=== PATIENT | male | born 1945 | race Caucasian/White ===

== ENCOUNTER → 2016-11-16 | Outpatient (CLI) | payer OTHER ==
[~2016-11-16] MED LIST: ACET-1311 PO; ATRINS INH; AUG0.05O4 TOP; BENZ1TAB2 PO; CALC500C PO; CGN5X PO; CHLO1TAB15 PO; DIPH25TA32 PO; DIVA250T PO; DIVA250T4 PO; DIVA500T5 PO; GFNSR600 PO; HYDR2.5C37 RE; LACT1TAB20 PO; LEVO1TAB33 PO; LISI-729 PO; LOPE-5 PO; LORA-741 PO; LTRCR30 EX; LVQ750 PO; MAGN400T5 PO; MAGNPOW EX; NXM/40 PO; ONDA4TAB4 PO; POTA10CA28 PO; PSYLPOW6 PO; QUET400T PO; RISP2TAB3 PO; TPRSR/25 PO; TRAZ50TA35 PO; XPNINS INH; ZFR4 PO; ZNTT/150 PO; [UNRECOGNIZED DRUG - OTHER] PO
== END | disposition home or self-care (01) ==
LOC: C.LABSPEC 16:34
PROVIDERS: ATTEND Internal Medicine
DX: J11.1 Influenza due to unidentified influenza virus with other respiratory manifestations (principal)

== ENCOUNTER → 2016-12-26 | Outpatient (CLI) | payer OTHER ==
[2016-12-26 08:50] LABS: BLOOD UREA NITROGEN 14 mg/dl (7-18); BUN/CREATININE RATIO 19.4 (10-20); CALCIUM 9.1 mg/dl (8.5-10.1); CARBON DIOXIDE 27 mmol/L (21-32); CHLORIDE 95 mmol/L (98-107); GLUCOSE 81 mg/dl (70-99); POTASSIUM 4.1 mmol/L (3.5-5.1); SODIUM 131 mmol/L (136-145)
== END | disposition home or self-care (01) ==
LOC: C.LABSPEC 07:49
PROVIDERS: ATTEND Nurse Practitioner Family
DX: I10 Essential (primary) hypertension (principal); E83.42 Hypomagnesemia

== ENCOUNTER → 2017-03-27 | Outpatient (CLI) | payer OTHER ==
[~2017-03-27] MED LIST changes: +BENZ0.5T2 PO; -CGN5X PO; -LACT1TAB20 PO; -LEVO1TAB33 PO; +[UNRECOGNIZED DRUG - CODE] PO
[2017-03-27 12:14] LABS: HEMATOCRIT 36.9 % (42-52); MEAN CELL VOLUME 89.6 fL (80-100); MEAN CORPUSCULAR HEMOGLOBIN 32.5 pg (25-34); MEAN CORPUSCULAR HGB CONC 36.3 g/dl (32-36); MEAN PLATELET VOLUME 9.2 fL (7.4-10.4); PLATELET COUNT 310 K/uL (130-400); RED BLOOD COUNT 4.12 M/uL (4.7-6.1); WHITE BLOOD COUNT 7.99 K/uL (4.8-10.8)
[2017-03-27 12:48] LABS: BLOOD UREA NITROGEN 11 mg/dl (7-18); BUN/CREATININE RATIO 16.4 (10-20); CARBON DIOXIDE 24 mmol/L (21-32); CHLORIDE 92 mmol/L (98-107); CREATININE 0.69 mg/dl (0.60-1.40); GLUCOSE 114 mg/dl (70-99); SODIUM 126 mmol/L (136-145)
[2017-03-27 12:57] LABS: CALCIUM 8.7 mg/dl (8.5-10.1)
== END ==
LOC: C.LABSPEC 14:40
PROVIDERS: ATTEND Nurse Practitioner Adult Health
DX: R05 Cough (principal)

== ENCOUNTER → 2017-07-24 | Outpatient (CLI) | payer OTHER ==
[~2017-07-24] MED LIST changes: -BENZ0.5T2 PO; +CGN5X PO; +LACT1TAB20 PO; -[UNRECOGNIZED DRUG - CODE] PO
[2017-07-24 10:52] LABS: BASO % 0.4 %; BASO ABS # 0.03 K/uL (0-0.2); COMPLETE YES; EOS % 3.4 %; HEMATOCRIT 35.5 % (42-52); IG% 0.3 %; LYMPH % 49.7 %; LYMPH ABS # 3.63 K/uL (1.2-3.4); MEAN CELL VOLUME 89.2 fL (80-100); MEAN CORPUSCULAR HEMOGLOBIN 32.2 pg (25-34); MEAN CORPUSCULAR HGB CONC 36.1 g/dl (32-36); MEAN PLATELET VOLUME 9.3 fL (7.4-10.4); MONO % 8.8 %; NEUT % 37.4 %; PLATELET COUNT 316 K/uL (130-400); RED BLOOD COUNT 3.98 M/uL (4.7-6.1)
[2017-07-24 11:22] LABS: BLOOD UREA NITROGEN 9 mg/dl (7-18); BUN/CREATININE RATIO 16.2 (10-20); CALCIUM 8.3 mg/dl (8.5-10.1); CARBON DIOXIDE 23 mmol/L (21-32); CHLORIDE 95 mmol/L (98-107); CREATININE 0.56 mg/dl (0.60-1.40); GLUCOSE 73 mg/dl (70-99); SODIUM 128 mmol/L (136-145)
== END | disposition home or self-care (01) ==
LOC: C.LABSPEC 08:18
PROVIDERS: ATTEND Nurse Practitioner Adult Health
DX: I10 Essential (primary) hypertension (principal)

== ENCOUNTER 2017-08-04 10:32 | Inpatient (IN) | payer OTHER ==
[~2017-08-04] VITALS: Ht 167.6 cm; Wt 49.9 kg
[~2017-08-04 10:32] MED LIST changes: -ATRINS INH; -CGN5X PO; -CHLO1TAB15 PO; -DIPH25TA32 PO; -DIVA250T PO; -DIVA500T5 PO; -LVQ750 PO; -XPNINS INH; -ZFR4 PO
[2017-08-04] MEDS ORDERED: SODIUM CHLORIDE 0.9% 1000ML 1,000 ML IV ONE ×2 (11:00→12:00)
--- NOTE | 2017-08-04 11:07 | EMERGENCY ROOM VISIT NOTE ---
History Report prepared by Shiva: Kevin Gabriel Under the Supervision of: Dr. oGrge Mcdermott M.D. First contact with patient: 10:52 Chief Complaint: DIZZY Stated Complaint: DIZZINESS History of Present Illness The patient is a 71 year old male who presents to the Emergency Room with complaints of dizziness that began recently. He states that he has been feeling "off" as of late with a shuffling gait. He states that he is not dizzy currently. Per the staff at [facility], his speech has been "heavier" as well. He is currently hypotensive with a blood pressure of 90/61. He states that this has happened to him in the past and he is medicated for his blood pressure. He denies any pain or shortness of breath as well. He states that he has a strange movement with his tongue that started a couple of weeks ago. Source of History: patient Onset: recently Position: other (global) Symptom Intensity: minimal Quality: other (Dizziness) Timing: resolved Associated Symptoms: No headache, No sorethroat, No neck pain, No chest pain , No SOB, No abdominal pain, No back pain Review of Systems All systems have been listed, reviewed, and are negative other than those previously mentioned. Please see Additional Medical History Sheet. Past Medical & Surgical Medical Problems: (1) Kevin esophagus (2) GERD (gastroesophageal reflux disease) (3) HTN (hypertension) (4) Paranoid schizophrenia (5) Partial small bowel obstruction (6) Sepsis (7) Tobacco abuse Surgical Problems: (1) History of bowel resection Family History FHx: heart disease Stroke Social History Smoking Status: Current Every Day Smoker Alcohol Use: none Drug Use: none Marital Status: single Housing Status: custodial Occupation Status: retired Current/Historical Medications Scheduled Benztropine Mesylate (Benztropine Mesylate), 0.5 MG PO BID Betamethasone Dip Aug 0.05% (Diprolene 0.05%), Unknown Dose TOP DAILY Calcium Carbonate (Antacid) (Calcium Antacid), 1-2 TABS PO DAILY Calcium Carbonate (Antacid) (Calcium Antacid), 1-2 TABS PO BID Chlorpromazine Hcl (Thorazine), 50 MG PO HS Clotrimazole (Lotrimin 1%), 1 EX DAILY Divalproex Sodium (Depakote Delay Rel), 250 MG PO BID Esomeprazole Magnesium (Nexium), 40 MG PO BID Lactase (Dairy Relief), 9,000 UNITS PO QID Lisinopril (Zestril), 5 MG PO BID Magnesium Sulfate (Laxative) (Epsom Salt), Unknown Dose EX 2XWK Metoprolol Succinate (Metoprolol Succinate ER), 12.5 MG PO DAILY Potassium Chloride (Micro-K Ext Rel), 10 MEQ PO BID Psyllium (Reguloid), Unknown Dose PO HS Quetiapine Fumarate Xr (Seroquel Xr Tab), 400 MG PO DAILY Ranitidine (Zantac), 150 MG PO BID Risperidone (Risperdal), 2 MG PO BID Trazodone Hcl (Trazodone), 50 MG PO DAILY [supplement drink ], 1 BTL PO DAILY Scheduled PRN Acetaminophen (Tylenol), 1,000 MG PO Q8 PRN for Pain Diphenhydramine Hcl (Diphenhydramine Hcl), 25 MG PO Q8 PRN for ALLERGIC REACTION Guaifenesin Ext Rel (Mucinex Ext Rel), 600 MG PO BID PRN for CONGESTION Loperamide Hcl (Imodium A-D), 2-4 MG PO UD PRN Ondansetron (Ondansetron HCl), 4 MG PO Q4 PRN for Nausea Allergies Coded Allergies: Buspirone (Verified Allergy, Unknown, 08/04/17) Clonazepam (Verified Allergy, Unknown, unknown, 08/04/17) [facility] Clozapine (Verified Allergy, Unknown, 08/04/17) Physical Exam Vital Signs Date Time Temp Pulse Resp B/P (MAP) Pulse Ox O2 Delivery O2 Flow Rate FiO2 08/04/17 12:50 92 Room Air 08/04/17 12:29 110 22 117/86 92 Room Air 08/04/17 11:20 104 20 115/78 94 Room Air 08/04/17 11:05 104 20 72/63 94 Room Air 08/04/17 10:51 36.7 114 16 108/67 94 Room Air 08/04/17 10:47 111 08/04/17 10:45 114 16 108/67 94 Room Air 110 121/68 125 90/61 08/04/17 10:35 94 Room Air Physical Exam GENERAL: Patient awake, alert, oriented x 3. Patient follows commands. Patient does not appear toxic. Patient is adequately hydrated and well- nourished. SKIN: Dry and flakey. No erythema, pallor, cyanosis or rash HEENT: Normal head, pupils equal, reactive to light and accommodation. Ears normal. Oral cavity and posterior pharynx appear normal. Edentulous. Tardive dyskinesia. Neck: Without adenopathy, no neck vein distention. LUNGS: Clear to auscultation. No wheezes, no rales, no rhonchi. HEART: No murmurs. No gallops. No rubs ABDOMEN: No masses, no rebound, no hepatomegaly or splenomegaly. EXTREMITIES: No signs of trauma. No pedal or pretibial edema. No calf or thigh tenderness. NEUROLOGIC: Cranial nerves II-XII within normal limits. No gross motor sensory function deficits. Medical Decision & Procedures ER Provider Diagnostic Interpretation: Radiology results as stated below per my review and radiologist interpretation: CHEST ONE VIEW PORTABLE CLINICAL HISTORY: dizzy mental status change COMPARISON STUDY: 06/26/2016 FINDINGS: Poorly defined parenchymal infiltrate left mid to lower lung. Right lung is clear. No significant cardiac enlargement. IMPRESSION: Diffuse left mid to lower lung infiltrate. The above report was generated using voice recognition software. It may contain grammatical, syntax or spelling errors. Electronically signed by: Ron Friend M.D. 08/04/2017 11:31 AM Dictated Date/Time: 08/04/2017 11:30 AM Laboratory Results 08/04/17 11:10 Red Blood Count 4.17, Mean Corpuscular Volume 88.0, Mean Corpuscular Hemoglobin 33.1, Mean Corpuscular Hemoglobin Concent 37.6, Mean Platelet Volume 8.8, Neutrophils (%) (Auto) 90.2, Lymphocytes (%) (Auto) 5.2, Monocytes (%) (Auto) 4.0, Eosinophils (%) (Auto) 0.1, Basophils (%) (Auto) 0.1, Neutrophils # (Auto) 16.98, Lymphocytes # (Auto) 0.97, Monocytes # (Auto) 0.76, Eosinophils # (Auto) 0.01, Basophils # (Auto) 0.01 08/04/17 11:10 Test 08/04/17 11:05 08/04/17 11:10 08/04/17 12:25 Urine Color YELLOW Urine Appearance CLEAR (CLEAR) Urine pH 7.5 (4.5-7.5) Urine Specific [place] 1.008 (1.000-1.030) Urine Protein NEG (NEG) Urine Glucose (UA) NEG (NEG) Urine Ketones NEG (NEG) Urine Occult Blood NEG (NEG) Urine Nitrite NEG (NEG) Urine Bilirubin NEG (NEG) Urine Urobilinogen NEG (NEG) Urine Leukocyte Esterase NEG (NEG) White Blood Count 18.80 K/uL (4.8-10.8) Red Blood Count 4.17 M/uL (4.7-6.1) Hemoglobin 13.8 g/dL (14.0-18.0) Hematocrit 36.7 % (42-52) Mean Corpuscular Volume 88.0 fL (80-100) Mean Corpuscular Hemoglobin 33.1 pg (25-34) Mean Corpuscular Hemoglobin Concent 37.6 g/dl (32-36) Platelet Count 312 K/uL (130-400) Mean Platelet Volume 8.8 fL (7.4-10.4) Neutrophils (%) (Auto) 90.2 % Lymphocytes (%) (Auto) 5.2 % Monocytes (%) (Auto) 4.0 % Eosinophils (%) (Auto) 0.1 % Basophils (%) (Auto) 0.1 % Neutrophils # (Auto) 16.98 K/uL (1.4-6.5) Lymphocytes # (Auto) 0.97 K/uL (1.2-3.4) Monocytes # (Auto) 0.76 K/uL (0.11-0.59) Eosinophils # (Auto) 0.01 K/uL (0-0.5) Basophils # (Auto) 0.01 K/uL (0-0.2) RDW Standard Deviation 44.4 fL (36.4-46.3) RDW Coefficient of Variation 13.7 % (11.5-14.5) Immature Granulocyte % (Auto) 0.4 % Immature Granulocyte # (Auto) 0.07 K/uL (0.00-0.02) Prothrombin Time 12.0 SECONDS (9.0-12.0) Prothromb Time International Ratio 1.1 (0.9-1.1) Activated Partial Thromboplast Time 28.0 SECONDS (21.0-31.0) Partial Thromboplastin Ratio 1.1 Anion Gap 12.0 mmol/L (3-11) Est Creatinine Clear Calc Drug Dose 76.4 ml/min Estimated GFR () 112.9 Estimated GFR (Non- 97.4 BUN/Creatinine Ratio 13.4 (10-20) Calcium Level 8.8 mg/dl (8.5-10.1) Total Bilirubin 0.5 mg/dl (0.2-1) Aspartate Amino Transf (AST/SGOT) 12 U/L (15-37) Alanine Aminotransferase (ALT/SGPT) 13 U/L (12-78) Alkaline Phosphatase 114 U/L (45-117) Troponin I < 0.015 ng/ml (0-0.045) Total Protein 7.0 gm/dl (6.4-8.2) Albumin 3.4 gm/dl (3.4-5.0) Globulin 3.6 gm/dl (2.5-4.0) Albumin/Globulin Ratio 0.9 (0.9-2) Thyroid Stimulating Hormone (TSH) 0.724 uIu/ml (0.300-4.500) Lactic Acid Level 2.4 mmol/L (0.4-2.0) Laboratory results as stated above per my review. Medications Administered Medications (Trade) Dose Ordered Sig/Lupillo Route Start Time Stop Time Status Last Admin Dose Admin Sodium Chloride 1,000 ml @ 1,000 mls/hr Q1H ONCE IV 08/04/17 11:00 08/04/17 11:59 DC 08/04/17 11:23 1,000 MLS/HR Sodium Chloride 1,000 ml @ 1,000 mls/hr Q1H ONCE IV 08/04/17 12:00 08/04/17 12:59 DC 08/04/17 12:56 1,000 MLS/HR Ceftriaxone Sodium (Rocephin Inj) 1 gm NOW STAT IV 08/04/17 11:48 08/04/17 11:52 DC 08/04/17 12:56 1 GM Azithromycin (Zithromax IV) 500 mg NOW STAT IV 08/04/17 11:48 08/04/17 11:52 DC 08/04/17 13:30 500 MG ECG Indication: other (Dizziness) Rate (beats per minute): 104 Rhythm: sinus tachycardia Findings: nonspecific-ST abn, no ectopy ED Course 1052: Past medical records reviewed. The patient was evaluated in room A2. A complete history and physical examination was performed. 1100: Ordered Sodium Chloride 1000 ml @ 1000 mls/hr IV 1148: Ordered Azithromycin 500 mg IV, Rocephin Inj 1 gm IV 1200: Ordered Sodium Chloride 1000 ml @ 1000 mls/hr IV 1206: Upon reevaluation, the patient is resting. I discussed today's findings with him. He verbalized agreement of the treatment plan. I spoke with Dr. [facility] the [facility] to evaluate the patient for further management. Medical Decision I considered multiple differential diagnoses including orthostatic hypotension, medication overdose, metabolic disorder, and anemia. 71-year-old male resident of a local nursing facility here with low blood pressure. The patient does not have other significant complaints. Multiple labs, EKG and imaging were obtained. The patient has an infiltrate on the left side. His white count is elevated. Troponin is elevated. Lactic acid is elevated. The patient was given IV fluids. Blood cultures were obtained prior to administration of Zithromax and Rocephin. The patient will require further evaluation in the hospital. The patient is on multiple medications including psychiatric medications. The case was discussed with the patient and with the hospitalist. Medication Reconcilliation Current Medication List: was personally reviewed by me Blood Pressure Screening Patient's blood pressure: Low blood pressure The patient's blood pressure will be addressed during his inpatient stay. Consults Time Called: 1202 Consulting Physician: Dr. Aguilar - [facility] Returned Call: [phone] Discussed the patient's case with him. The patient will be evaluated for further management. Impression Primary Impression: Pneumonia Additional Impression: Hypotension Scribe Attestation The scribe's documentation has been prepared under my direction and personally reviewed by me in its entirety. I confirm that the note above accurately reflects all work, treatment, procedures, and medical decision making performed by me. Departure Information Dispostion Being Evaluated By Hospitalist [facility] (PCP[facility] Patient Instructions My [facility] Problem Qualifiers
[2017-08-04] MEDS ORDERED: ZFR4 PO (11:10)
[2017-08-04] MEDS ORDERED: CHLO1TAB15 PO (11:11)
[2017-08-04] MEDS ORDERED: DIPH25TA32 PO (11:11)
[2017-08-04] MEDS ORDERED: CGN5X PO (11:11)
[2017-08-04 11:30] LABS: BASO % 0.1 %; BASO ABS # 0.01 K/uL (0-0.2); COMPLETE YES; EOS % 0.1 %; HEMATOCRIT 36.7 % (42-52); IG% 0.4 %; LYMPH % 5.2 %; LYMPH ABS # 0.97 K/uL (1.2-3.4); MEAN CORPUSCULAR HEMOGLOBIN 33.1 pg (25-34); MEAN CORPUSCULAR HGB CONC 37.6 g/dl (32-36); MEAN PLATELET VOLUME 8.8 fL (7.4-10.4); NEUT % 90.2 %; PLATELET COUNT 312 K/uL (130-400); RED BLOOD COUNT 4.17 M/uL (4.7-6.1)
--- NOTE | 2017-08-04 11:32 | DIAGNOSTIC IMAGING REPORT ---
CHEST ONE VIEW PORTABLE CLINICAL HISTORY: dizzy mental status change COMPARISON STUDY: 06/26/2016 FINDINGS: Poorly defined parenchymal infiltrate left mid to lower lung. Right lung is clear. No significant cardiac enlargement. IMPRESSION: Diffuse left mid to lower lung infiltrate. The above report was generated using voice recognition software. It may contain grammatical, syntax or spelling errors. Electronically signed by: Ron Friend M.D. 08/04/2017 11:31 AM Dictated Date/Time: 08/04/2017 11:30 AM
[2017-08-04 11:35] LABS: URINE APPEARANCE CLEAR (CLEAR); URINE BILIRUBIN NEG (NEG); URINE COLOR YELLOW; URINE NITRITE NEG (NEG); URINE PH 7.5 (4.5-7.5); URINE SPECIFIC GRAVITY 1.008 (1.000-1.030); UROBILINOGEN NEG (NEG); ZZUR CULT IF INDIC CLEAN CATCH NO
[2017-08-04 11:36] LABS: MANUAL MICROSCOPIC REQUIRED? NO; REVIEW REQ? NO
[2017-08-04 11:42] LABS: INR 1.1 (0.9-1.1); PARTIAL THROMBOPLASTIN RATIO 1.1
[2017-08-04] MEDS ORDERED: CEFTRIAXONE SOD INJ 1 GM ADDVIAL IV STA (11:48)
[2017-08-04] MEDS ORDERED: AZITHROMYCIN 500MG/255ML D5W IV STA (11:48)
[2017-08-04 11:55] LABS: ALT/SGPT 13 U/L (12-78); BLOOD UREA NITROGEN 9 mg/dl (7-18); BUN/CREATININE RATIO 13.4 (10-20); CALCIUM 8.8 mg/dl (8.5-10.1); CARBON DIOXIDE 23 mmol/L (21-32); CHLORIDE 93 mmol/L (98-107); CREATININE 0.68 mg/dl (0.60-1.40); GLUCOSE 90 mg/dl (70-99); SODIUM 128 mmol/L (136-145)
[2017-08-04 12:05] LABS: ALB/GLOB RATIO 0.9 (0.9-2); ALKALINE PHOSPHATASE 114 U/L (45-117); AST/SGOT 12 U/L (15-37); THYROID STIMULATING HORMONE 0.724 uIu/ml (0.300-4.500)
[2017-08-04 12:50] VITALS: O2SAT 92; Ht 167.6 cm; Wt 49.9 kg
[2017-08-04] MEDS ORDERED: ACETAMINOPHEN 325 MG TAB PO PRN (13:30)
[2017-08-04] MEDS ORDERED: POLYETHYLENE (MIRALAX) 17 GM PACK PO PRN (13:30)
[2017-08-04] MEDS ORDERED: ONDANSETRON INJ 2 MG/ML 2 ML VIAL IV PRN (13:30)
--- NOTE | 2017-08-04 13:51 | History and Physical ---
History & Physical Date & Time of Service: Aug 04, 2017 at 13:43 Chief Complaint: Dizziness Primary Care Physician: Laureano Gomez,Personal Care,[facility] History of Present Illness Source: patient, clinic records, hospital records 71 yo M who was recently admitted to [facility] in Jun for sepsis 2/2 pneumonia presents with "feeling off" and unsteady on his feet when walking around [facility] this morning. He states that he is a smoker with a chronic cough, but he has felt worse in the past 2 days with some sputum production different than his usual. He denies any shortness of breath, chest pain, headache, abdominal pain, diarrhea, blood per rectum, sore throat, fevers or chills. He does admit to vomiting 1-2 times daily for the past two days. Although he doesn't admit to abdominal pain he did have some discomfort when I palpated his abdomen on exam, but states that he hasn't had a BM in three days and currently has to urinate. He has resided at [facility] for the past 7 years. He states that he has no other family members and that someone at is his mPOA. He does state that he feels better since his last admission, and feels the prior pneumonia was completely resolved. In the ER, he was hypotensive with BP responsive to IVF administration. CXR revealed an infiltrate on the left side. With this, symptoms and an elevated WBC count he was given Azithromax and Rocephin and admitted to the hospital for further workup and treatment. Past Medical/Surgical History Medical Problems: (1) Kevin esophagus Status: Chronic (2) GERD (gastroesophageal reflux disease) Status: Chronic (3) HTN (hypertension) Status: Chronic (4) Paranoid schizophrenia Status: Chronic (5) Tobacco abuse Status: Chronic Surgical Problems: (1) History of bowel resection Permanent Comment: for diverticulitis Status: Chronic Family History FHx: heart disease Stroke Social History Smoking Status: Current Every Day Smoker Smokeless Tobacco Use: No Alcohol Use: none Drug Use: none Marital Status: single Housing status: assisted living Occupational Status: retired Multi-Drug Resistant Organisms History of MDRO: No Allergies Coded Allergies: Buspirone (Verified Allergy, Unknown, 08/04/17) Clonazepam (Verified Allergy, Unknown, unknown, 08/04/17) [facility] Clozapine (Verified Allergy, Unknown, 08/04/17) Home Medications Scheduled Benztropine Mesylate (Benztropine Mesylate), 0.5 MG PO BID Betamethasone Dip Aug 0.05% (Diprolene 0.05%), Unknown Dose TOP DAILY Calcium Carbonate (Antacid) (Calcium Antacid), 1-2 TABS PO DAILY Calcium Carbonate (Antacid) (Calcium Antacid), 1-2 TABS PO BID Chlorpromazine Hcl (Thorazine), 50 MG PO HS Clotrimazole (Lotrimin 1%), 1 EX DAILY Divalproex Sodium (Depakote Delay Rel), 1 TAB PO BID Divalproex Sodium (Depakote Er), 1 TAB PO BID Esomeprazole Magnesium (Nexium), 40 MG PO BID Lactase (Dairy Relief), 9,000 UNITS PO QID Lisinopril (Zestril), 5 MG PO BID Magnesium Sulfate (Laxative) (Epsom Salt), Unknown Dose EX 2XWK Metoprolol Succinate (Metoprolol Succinate ER), 12.5 MG PO DAILY Potassium Chloride (Micro-K Ext Rel), 10 MEQ PO BID Psyllium (Reguloid), Unknown Dose PO HS Quetiapine Fumarate Xr (Seroquel Xr Tab), 400 MG PO DAILY Ranitidine (Zantac), 150 MG PO BID Risperidone (Risperdal), 2 MG PO BID Trazodone Hcl (Trazodone), 50 MG PO DAILY [supplement drink ], 1 BTL PO DAILY Scheduled PRN Acetaminophen (Tylenol), 1,000 MG PO Q8 PRN for Pain Diphenhydramine Hcl (Diphenhydramine Hcl), 25 MG PO Q8 PRN for ALLERGIC REACTION Guaifenesin Ext Rel (Mucinex Ext Rel), 600 MG PO BID PRN for CONGESTION Loperamide Hcl (Imodium A-D), 2-4 MG PO UD PRN Ondansetron (Ondansetron HCl), 4 MG PO Q4 PRN for Nausea Review of Systems At least ten systems were reviewed and negative except as indicated in HPI. Physical Exam Vital Signs Date Time Temp Pulse Resp B/P (MAP) Pulse Ox O2 Delivery O2 Flow Rate FiO2 08/04/17 13:37 111 08/04/17 12:50 92 Room Air 08/04/17 12:29 110 22 117/86 92 Room Air 08/04/17 11:20 104 20 115/78 94 Room Air 08/04/17 11:05 104 20 72/63 94 Room Air 08/04/17 10:51 36.7 114 16 108/67 94 Room Air 08/04/17 10:47 111 08/04/17 10:45 114 16 108/67 94 Room Air 110 121/68 125 90/61 08/04/17 10:35 94 Room Air General Appearance: WD/WN, no apparent distress, + pertinent finding (not requiring oxygen, not working to breathe, no conversational dyspnea. ) Head: normocephalic, atraumatic Eyes: normal inspection, PERRL, sclerae normal ENT: normal ENT inspection, hearing grossly normal, + pertinent finding ( postnasal drip noted, sticks tongue out and moves side to side often) Neck: supple, no adenopathy, no JVD, trachea midline Respiratory/Chest: lungs clear, normal breath sounds, no respiratory distress, no accessory muscle use Cardiovascular: regular rate, rhythm, no edema, no gallop, no murmur, normal peripheral pulses Abdomen/GI: normal bowel sounds, soft, + tenderness (generalized discomfort.) Back: normal inspection Extremities/Musculoskelatal: normal inspection, no pedal edema, normal range of motion Neurologic/Psych: machinist II-XII nml as tested, no motor/sensory deficits, alert, oriented x 3 Skin: normal color, warm/dry, no rash Lymphatic: + cervical node abnormality Diagnostics Laboratory Results 08/04/17 11:10 Red Blood Count 4.17, Mean Corpuscular Volume 88.0, Mean Corpuscular Hemoglobin 33.1, Mean Corpuscular Hemoglobin Concent 37.6, Mean Platelet Volume 8.8, Neutrophils (%) (Auto) 90.2, Lymphocytes (%) (Auto) 5.2, Monocytes (%) (Auto) 4.0, Eosinophils (%) (Auto) 0.1, Basophils (%) (Auto) 0.1, Neutrophils # (Auto) 16.98, Lymphocytes # (Auto) 0.97, Monocytes # (Auto) 0.76, Eosinophils # (Auto) 0.01, Basophils # (Auto) 0.01 08/04/17 17:35 Test 08/04/17 11:05 08/04/17 11:10 08/04/17 17:35 Urine Color YELLOW Urine Appearance CLEAR (CLEAR) Urine pH 7.5 (4.5-7.5) Urine Specific Wann 1.008 (1.000-1.030) Urine Protein NEG (NEG) Urine Glucose (UA) NEG (NEG) Urine Ketones NEG (NEG) Urine Occult Blood NEG (NEG) Urine Nitrite NEG (NEG) Urine Bilirubin NEG (NEG) Urine Urobilinogen NEG (NEG) Urine Leukocyte Esterase NEG (NEG) White Blood Count 18.80 K/uL (4.8-10.8) Red Blood Count 4.17 M/uL (4.7-6.1) Hemoglobin 13.8 g/dL (14.0-18.0) Hematocrit 36.7 % (42-52) Mean Corpuscular Volume 88.0 fL (80-100) Mean Corpuscular Hemoglobin 33.1 pg (25-34) Mean Corpuscular Hemoglobin Concent 37.6 g/dl (32-36) Platelet Count 312 K/uL (130-400) Mean Platelet Volume 8.8 fL (7.4-10.4) Neutrophils (%) (Auto) 90.2 % Lymphocytes (%) (Auto) 5.2 % Monocytes (%) (Auto) 4.0 % Eosinophils (%) (Auto) 0.1 % Basophils (%) (Auto) 0.1 % Neutrophils # (Auto) 16.98 K/uL (1.4-6.5) Lymphocytes # (Auto) 0.97 K/uL (1.2-3.4) Monocytes # (Auto) 0.76 K/uL (0.11-0.59) Eosinophils # (Auto) 0.01 K/uL (0-0.5) Basophils # (Auto) 0.01 K/uL (0-0.2) RDW Standard Deviation 44.4 fL (36.4-46.3) RDW Coefficient of Variation 13.7 % (11.5-14.5) Immature Granulocyte % (Auto) 0.4 % Immature Granulocyte # (Auto) 0.07 K/uL (0.00-0.02) Prothrombin Time 12.0 SECONDS (9.0-12.0) Prothromb Time International Ratio 1.1 (0.9-1.1) Activated Partial Thromboplast Time 28.0 SECONDS (21.0-31.0) Partial Thromboplastin Ratio 1.1 Total Bilirubin 0.5 mg/dl (0.2-1) Aspartate Amino Transf (AST/SGOT) 12 U/L (15-37) Alanine Aminotransferase (ALT/SGPT) 13 U/L (12-78) Alkaline Phosphatase 114 U/L (45-117) Troponin I < 0.015 ng/ml (0-0.045) Total Protein 7.0 gm/dl (6.4-8.2) Albumin 3.4 gm/dl (3.4-5.0) Globulin 3.6 gm/dl (2.5-4.0) Albumin/Globulin Ratio 0.9 (0.9-2) Thyroid Stimulating Hormone (TSH) 0.724 uIu/ml (0.300-4.500) Anion Gap 9.0 mmol/L (3-11) Est Creatinine Clear Calc Drug Dose 75.3 ml/min Estimated GFR () 112.3 Estimated GFR (Non- 96.9 BUN/Creatinine Ratio 11.0 (10-20) Osmolality 268 mOsm/kg (280-300) Lactic Acid Level 1.5 mmol/L (0.4-2.0) Calcium Level 8.3 mg/dl (8.5-10.1) Date/Time Source Procedure Growth Status 08/04/17 12:28 Blood Blood Culture Pending Received Results Past 24 Hours Test 08/04/17 11:05 08/04/17 11:10 08/04/17 12:25 Range/Units Urine Color YELLOW Urine Appearance CLEAR CLEAR Urine pH 7.5 4.5-7.5 Urine Specific Wann 1.008 1.000-1.030 Urine Protein NEG NEG Urine Glucose (UA) NEG NEG Urine Ketones NEG NEG Urine Occult Blood NEG NEG Urine Nitrite NEG NEG Urine Bilirubin NEG NEG Urine Urobilinogen NEG NEG Urine Leukocyte Esterase NEG NEG White Blood Count 18.80 4.8-10.8 K/uL Red Blood Count 4.17 4.7-6.1 M/uL Hemoglobin 13.8 14.0-18.0 g/dL Hematocrit 36.7 42-52 % Mean Corpuscular Volume 88.0 80-100 fL Mean Corpuscular Hemoglobin 33.1 25-34 pg Mean Corpuscular Hemoglobin Concent 37.6 32-36 g/dl Platelet Count 312 130-400 K/uL Mean Platelet Volume 8.8 7.4-10.4 fL Neutrophils (%) (Auto) 90.2 % Lymphocytes (%) (Auto) 5.2 % Monocytes (%) (Auto) 4.0 % Eosinophils (%) (Auto) 0.1 % Basophils (%) (Auto) 0.1 % Neutrophils # (Auto) 16.98 1.4-6.5 K/uL Lymphocytes # (Auto) 0.97 1.2-3.4 K/uL Monocytes # (Auto) 0.76 0.11-0.59 K/uL Eosinophils # (Auto) 0.01 0-0.5 K/uL Basophils # (Auto) 0.01 0-0.2 K/uL RDW Standard Deviation 44.4 36.4-46.3 fL RDW Coefficient of Variation 13.7 11.5-14.5 % Immature Granulocyte % (Auto) 0.4 % Immature Granulocyte # (Auto) 0.07 0.00-0.02 K/uL Prothrombin Time 12.0 9.0-12.0 SECONDS Prothromb Time International Ratio 1.1 0.9-1.1 Activated Partial Thromboplast Time 28.0 21.0-31.0 SECONDS Partial Thromboplastin Ratio 1.1 Sodium Level 128 136-145 mmol/L Potassium Level 4.0 3.5-5.1 mmol/L Chloride Level 93 98-107 mmol/L Carbon Dioxide Level 23 21-32 mmol/L Anion Gap 12.0 3-11 mmol/L Blood Urea Nitrogen 9 7-18 mg/dl Creatinine 0.68 0.60-1.40 mg/dl Est Creatinine Clear Calc Drug Dose 76.4 ml/min Estimated GFR () 112.9 Estimated GFR (Non- 97.4 BUN/Creatinine Ratio 13.4 10-20 Random Glucose 90 70-99 mg/dl Calcium Level 8.8 8.5-10.1 mg/dl Total Bilirubin 0.5 0.2-1 mg/dl Aspartate Amino Transf (AST/SGOT) 12 15-37 U/L Alanine Aminotransferase (ALT/SGPT) 13 12-78 U/L Alkaline Phosphatase 114 45-117 U/L Troponin I < 0.015 0-0.045 ng/ml Total Protein 7.0 6.4-8.2 gm/dl Albumin 3.4 3.4-5.0 gm/dl Globulin 3.6 2.5-4.0 gm/dl Albumin/Globulin Ratio 0.9 0.9-2 Thyroid Stimulating Hormone (TSH) 0.724 0.300-4.500 uIu/ml Lactic Acid Level 2.4 0.4-2.0 mmol/L Microbiology Results 08/04/17 Blood Culture, Received Pending 08/04/17 Blood Culture, Received Pending Diagnostic Radiology CHEST ONE VIEW PORTABLE CLINICAL HISTORY: dizzy mental status change COMPARISON STUDY: 06/26/2016 FINDINGS: Poorly defined parenchymal infiltrate left mid to lower lung. Right lung is clear. No significant cardiac enlargement. IMPRESSION: Diffuse left mid to lower lung infiltrate. EKG ST 104 Impression Assessment and Plan 71 yo M recently discharged from the hospital for pneumonia presents with sepsis 2/2 HCAP after initial pneumonia reported to have resolved. 1. Sepsis 2/2 HCAP-resuscitated in ER. Lactate elevated and resolved on repeat after IVF. He was initially started on Rocephin and Azithro but with this being the second episode in 1 month and from a senior living and being a smoker, I felt it prudent to cover for for pseudomonas and switched him to Zosyn. Cont resuscitation efforts overnight. 2. Hypovolemic hypotonic hyponatremia-IVF, repeat Na improved from 128 to 134. IVF were stopped. 3. Paranoid schizophrenia-lucid mental status. Cont home medications. 4. HTN- controlled, cont home meds 5. Tobacco use (smoker)-tobacco cessation counseling ordered while he is an inpatient 6. Kevin's esoph-cont BID PPI per outpatient regimen DVT proph: Lovenox 30mg Full Code Dispo- to telemetry, PT/OT and Case Management requested to be involved. Leta Head [facility] Existing Living Will: Yes Existing Power of Food Service Counter Clerk: Yes ([facility] ) VTE Prophylaxis VTE Risk Assessment Done? Y/N: Yes Risk Level: Moderate Given or contraindicated: Enoxaparin (Lovenox)SQ
[2017-08-04 14:15] VITALS: BP 148/82; PULSE 100; TEMP 37; O2SAT 88
[2017-08-04 14:30] VITALS: O2SAT 94
[2017-08-04] MEDS ORDERED: SODIUM CHLORIDE 0.9% 1000ML 1,000 ML IV SCH (14:30)
[2017-08-04] MEDS ORDERED: CONSULT PHARMACY SCH (14:34)
[2017-08-04] MEDS ORDERED: PIPERACILL/TAZOBAC IV 4.5 GM in DEXTROSE 5% 100ML IV ONE (14:45)
[2017-08-04] MEDS ORDERED: PIPERACILL/TAZOBAC CONSULT ACTIVE PRN (15:00)
[2017-08-04] MEDS ORDERED: LEVOFLOXACIN CONSULT ACTIVE PRN (15:00)
[2017-08-04] MEDS ORDERED: LIDOCAINE HCL 2% JELLY 30 ML TUBE EXT ONE (15:39)
[2017-08-04] MEDS: LEVOFLOXACIN 750MG / D5W IV SCH (16:18)
[2017-08-04] MEDS: ENOXAPARIN 30 MG/0.3 ML SYR SC SCH (16:19)
[2017-08-04 18:15] LABS: CALCIUM 8.3 mg/dl (8.5-10.1); CREATININE 0.69 mg/dl (0.60-1.40); POTASSIUM 3.8 mmol/L (3.5-5.1)
[2017-08-04] MEDS: PIPERACILL/TAZOBAC IV 3.375 GM in DEXTROSE 5% 100ML IV SCH (19:49)
[2017-08-04 20:00] VITALS: BP_SYST 118; BP_SYST 122; BP_DIAS 74; BP_DIAS 77; BP_DIAS 82; PULSE 103; PULSE 104; PULSE 93; O2SAT 94
[2017-08-04] MEDS ORDERED: DIVA500T5 PO (20:38)
[2017-08-04] MEDS ORDERED: DIVA250T PO (20:43)
[2017-08-04] MEDS: QUETIAPINE FUMARATE 200 MG TABCR PO SCH (22:41)
[2017-08-04] MEDS: RANITIDINE HCL 150 MG TAB PO SCH (22:42)
[2017-08-04] MEDS: RISPERIDONE 2 MG TAB PO SCH (22:42)
[2017-08-04] MEDS: PANTOprazole SOD 40 MG TAB PO SCH (22:42)
[2017-08-04] MEDS: TRAZODONE HCL 50 MG TAB PO SCH (22:42)
[2017-08-04] MEDS: BENZTROPINE MESYLATE 0.5 MG TAB PO SCH (22:43)
[2017-08-04] MEDS: CHLORPROMAZINE HCL 25 MG TAB PO SCH (22:44)
[2017-08-04] MEDS: POTASSIUM CHLORIDE 10 MEQ TABCR PO SCH (22:44)
[2017-08-04] MEDS: DIVALPROEX 250 MG EXTENDED REL TAB PO SCH (22:45)
[2017-08-05] VITALS (11 sets, daily range): BP systolic 87–123; BP diastolic 52–75; PULSE 75–114; TEMP 36.2–37.2; O2SAT 94–99
[2017-08-05] MEDS: PIPERACILL/TAZOBAC IV 3.375 GM in DEXTROSE 5% 100ML IV SCH ×3 (04:08→19:20)
[2017-08-05 07:19] LABS: BASO % 0.1 %; BASO ABS # 0.02 K/uL (0-0.2); COMPLETE YES; EOS % 1.5 %; HEMATOCRIT 32.5 % (42-52); IG% 0.3 %; LYMPH % 21.2 %; LYMPH ABS # 2.86 K/uL (1.2-3.4); MEAN CORPUSCULAR HEMOGLOBIN 31.8 pg (25-34); MEAN CORPUSCULAR HGB CONC 35.7 g/dl (32-36); MEAN PLATELET VOLUME 9.1 fL (7.4-10.4); MONO % 6.2 %; NEUT % 70.7 %; PLATELET COUNT 291 K/uL (130-400); RED BLOOD COUNT 3.65 M/uL (4.7-6.1); WHITE BLOOD COUNT 13.52 K/uL (4.8-10.8)
[2017-08-05 07:48] LABS: BUN/CREATININE RATIO 15.8 (10-20); CALCIUM 8.6 mg/dl (8.5-10.1); CREATININE 0.55 mg/dl (0.60-1.40); POTASSIUM 3.4 mmol/L (3.5-5.1)
[2017-08-05] MEDS: RANITIDINE HCL 150 MG TAB PO SCH ×2 (07:54→20:55)
[2017-08-05] MEDS: POTASSIUM CHLORIDE 10 MEQ TABCR PO SCH ×2 (07:55→20:54)
[2017-08-05] MEDS: PANTOprazole SOD 40 MG TAB PO SCH ×2 (07:55→20:54)
[2017-08-05] MEDS: DIVALPROEX 250 MG EXTENDED REL TAB PO SCH ×2 (07:55→20:52)
[2017-08-05] MEDS: LISINOPRIL 5 MG TAB PO SCH ×2 (07:55→20:53)
[2017-08-05] MEDS: RISPERIDONE 2 MG TAB PO SCH ×2 (07:55→20:53)
[2017-08-05] MEDS: BENZTROPINE MESYLATE 0.5 MG TAB PO SCH ×2 (07:55→20:54)
[2017-08-05] MEDS: METOPROLOL SUCC 25MG EXT REL TAB PO SCH (07:56)
[2017-08-05] MEDS ORDERED: TRAZODONE HCL 50 MG TAB PO SCH (09:00)
[2017-08-05] MEDS ORDERED: QUETIAPINE FUMARATE 200 MG TABCR PO SCH (09:00)
[2017-08-05] MEDS ORDERED: SODIUM CHLORIDE 0.9% 1000ML 1,000 ML IV STA (10:19)
[2017-08-05] MEDS ORDERED: ZOLPIDEM TARTRATE 5 MG TAB PO ONE ×2 (10:30→21:00)
[2017-08-05] MEDS ORDERED: POTASSIUM CHLORIDE 10 MEQ TABCR PO ONE (11:00)
[2017-08-05] MEDS: LEVOFLOXACIN 750MG / D5W IV SCH (16:49)
[2017-08-05] MEDS: ENOXAPARIN 30 MG/0.3 ML SYR SC SCH (16:51)
[2017-08-05] MEDS: BOOST VANILLA PO SCH ×2 (17:55)
[2017-08-05] MEDS ORDERED: NURSING VERBAL MED ORDER ONE (19:30)
[2017-08-05] MEDS: QUETIAPINE FUMARATE 200 MG TABCR PO SCH (20:54)
[2017-08-05] MEDS: TRAZODONE HCL 50 MG TAB PO SCH (20:54)
[2017-08-05] MEDS: CHLORPROMAZINE HCL 25 MG TAB PO SCH (20:55)
--- NOTE | 2017-08-05 21:58 | Progress Note ---
Internal Med Progress Note Date of Service: Aug 05, 2017. Provider Documentation: SUBJECTIVE: patient seen and examined at bedside. denies acute shortness of breath or chest pain OBJECTIVE: General Appearance: no apparent distress Head: normocephalic, atraumatic Eyes: normal inspection, sclerae normal ENT: normal ENT inspection, hearing grossly normal, sticks tongue out and moves side to side often which is chronic as per patient Neck: no JVD, trachea midline Respiratory/Chest: lungs clear, normal breath sounds, no respiratory distress, no accessory muscle use Cardiovascular: regular rate, rhythm, no edema, no gallop, no murmur, normal peripheral pulses Abdomen/GI: normal bowel sounds, soft Back: normal inspection Extremities/Musculoskelatal: normal inspection, no pedal edema, normal range of motion Neurologic/Psych: 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 1. Sepsis 2/2 HCAP -resuscitated in ER. initially started on Rocephin and Azithro but with this being the second episode in 1 month and from a fpc and being a smoker, patient's coverage increased with Zosyn.f/u blood cultures from 08/04/17 2. Hypovolemic hypotonic hyponatremia resolved on IV fluids 3. Paranoid schizophrenia-lucid mental status. Cont home medications. 4. HTN- controlled, cont home meds 5. 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 Vital Signs: Date Time Temp Pulse Resp B/P (MAP) Pulse Ox O2 Delivery O2 Flow Rate FiO2 08/05/17 19:29 36.5 93 18 118/75 (89) 98 Nasal Cannula 2.0 112/75 (87) 99/71 (80) 08/05/17 16:00 37.2 75 17 123/74 (90) 98 Nasal Cannula 2.0 08/05/17 16:00 Nasal Cannula 2.0 08/05/17 12:28 36.6 80 16 111/62 (78) 99 Nasal Cannula 2.0 08/05/17 12:00 Nasal Cannula 2.0 08/05/17 08:00 Nasal Cannula 2.0 08/05/17 07:50 36.5 88 16 99/64 (76) 96 Nasal Cannula 2.0 08/05/17 04:10 90 113/69 (84) 08/05/17 04:10 36.3 87 16 110/70 (83) 95 Nasal Cannula 2.0 08/05/17 04:10 90 103/66 (78) 08/05/17 04:00 Nasal Cannula 2.0 08/05/17 00:09 100 97/66 (76) 08/05/17 00:08 96 87/60 (69) 08/05/17 00:07 36.5 79 20 91/52 (65) 96 Nasal Cannula 2.0 08/04/17 23:20 Nasal Cannula 2.0 Lab Results: Results Past 24 Hours Test 08/05/17 06:23 Range/Units White Blood Count 13.52 4.8-10.8 K/uL Red Blood Count 3.65 4.7-6.1 M/uL Hemoglobin 11.6 14.0-18.0 g/dL Hematocrit 32.5 42-52 % Mean Corpuscular Volume 89.0 80-100 fL Mean Corpuscular Hemoglobin 31.8 25-34 pg Mean Corpuscular Hemoglobin Concent 35.7 32-36 g/dl Platelet Count 291 130-400 K/uL Mean Platelet Volume 9.1 7.4-10.4 fL Neutrophils (%) (Auto) 70.7 % Lymphocytes (%) (Auto) 21.2 % Monocytes (%) (Auto) 6.2 % Eosinophils (%) (Auto) 1.5 % Basophils (%) (Auto) 0.1 % Neutrophils # (Auto) 9.56 1.4-6.5 K/uL Lymphocytes # (Auto) 2.86 1.2-3.4 K/uL Monocytes # (Auto) 0.84 0.11-0.59 K/uL Eosinophils # (Auto) 0.20 0-0.5 K/uL Basophils # (Auto) 0.02 0-0.2 K/uL RDW Standard Deviation 45.1 36.4-46.3 fL RDW Coefficient of Variation 13.7 11.5-14.5 % Immature Granulocyte % (Auto) 0.3 % Immature Granulocyte # (Auto) 0.04 0.00-0.02 K/uL Sodium Level 134 136-145 mmol/L Potassium Level 3.4 3.5-5.1 mmol/L Chloride Level 102 98-107 mmol/L Carbon Dioxide Level 23 21-32 mmol/L Anion Gap 9.0 3-11 mmol/L Blood Urea Nitrogen 9 7-18 mg/dl Creatinine 0.55 0.60-1.40 mg/dl Est Creatinine Clear Calc Drug Dose 89.3 ml/min Estimated GFR () 123.2 Estimated GFR (Non- 106.3 BUN/Creatinine Ratio 15.8 10-20 Random Glucose 82 70-99 mg/dl Calcium Level 8.6 8.5-10.1 mg/dl Magnesium Level 1.7 1.8-2.4 mg/dl Microbiology Results 08/04/17 MRSA DNA Surveillance Screen - Final, Complete Specimen Negative for MRSA by DNA Probe
[2017-08-06] VITALS (10 sets, daily range): BP systolic 81–121; BP diastolic 50–79; PULSE 89–121; TEMP 36.3–37.1; O2SAT 90–96
[2017-08-06] MEDS: PIPERACILL/TAZOBAC IV 3.375 GM in DEXTROSE 5% 100ML IV SCH ×3 (03:24→20:24)
[2017-08-06 05:39] LABS: BASO % 0.2 %; BASO ABS # 0.02 K/uL (0-0.2); COMPLETE YES; EOS % 2.4 %; HEMATOCRIT 34.3 % (42-52); IG% 0.5 %; LYMPH % 28.3 %; LYMPH ABS # 3.48 K/uL (1.2-3.4); MEAN CELL VOLUME 88.4 fL (80-100); MEAN CORPUSCULAR HEMOGLOBIN 32.5 pg (25-34); MEAN CORPUSCULAR HGB CONC 36.7 g/dl (32-36); MEAN PLATELET VOLUME 8.9 fL (7.4-10.4); MONO % 10.8 %; NEUT % 57.8 %; PLATELET COUNT 283 K/uL (130-400); RED BLOOD COUNT 3.88 M/uL (4.7-6.1); WHITE BLOOD COUNT 12.31 K/uL (4.8-10.8)
[2017-08-06 06:10] LABS: BUN/CREATININE RATIO 11.1 (10-20); CALCIUM 9.1 mg/dl (8.5-10.1); CREATININE 0.56 mg/dl (0.60-1.40); POTASSIUM 3.9 mmol/L (3.5-5.1)
[2017-08-06 06:13] LABS: ALB/GLOB RATIO 0.8 (0.9-2)
[2017-08-06] MEDS: BOOST VANILLA PO SCH ×6 (07:42→16:10)
[2017-08-06] MEDS: PANTOprazole SOD 40 MG TAB PO SCH ×2 (07:43→20:15)
[2017-08-06] MEDS: BENZTROPINE MESYLATE 0.5 MG TAB PO SCH ×2 (07:43→20:15)
[2017-08-06] MEDS: POTASSIUM CHLORIDE 10 MEQ TABCR PO SCH ×2 (07:43→20:15)
[2017-08-06] MEDS: RANITIDINE HCL 150 MG TAB PO SCH ×2 (07:43→20:15)
[2017-08-06] MEDS: LISINOPRIL 5 MG TAB PO SCH ×2 (07:44→20:16)
[2017-08-06] MEDS: DIVALPROEX 250 MG EXTENDED REL TAB PO SCH ×2 (07:44→20:16)
[2017-08-06] MEDS: RISPERIDONE 2 MG TAB PO SCH ×2 (07:44→20:16)
[2017-08-06] MEDS: METOPROLOL SUCC 25MG EXT REL TAB PO SCH (09:00)
[2017-08-06] MEDS ORDERED: MAGNESIUM OXIDE 400 MG TAB PO ONE (12:00)
--- NOTE | 2017-08-06 13:39 | Progress Note ---
Medicine Progress Note Date & Time of Visit: Aug 06, 2017 at 13:23. Subjective Pt was seen and examined Lying in bed with no distress Pt said that he is feeling much better He said that the cough feels much better Denies any chest pain, palpitation, fever and sob Objective Last 8 Hrs Date Time Temp Pulse Resp B/P (MAP) Pulse Ox O2 Delivery O2 Flow Rate FiO2 08/06/17 12:00 Room Air 08/06/17 11:36 36.7 94 19 94/65 (75) 93 Room Air 08/06/17 08:00 Room Air 08/06/17 07:05 121 18 81/50 (60) 92 Room Air 08/06/17 07:04 113 18 93/68 (76) 94 Room Air 08/06/17 07:02 36.8 105 18 117/71 (86) 95 Room Air Physical Exam: General- No acute distress Head- atraumatic Eyes- PERRL, EOMI ENT- oropharynx clear Neck- supple, no JVD Lungs- clear to auscultation Heart- regular rhythm Abdomen- normal bowel sounds, soft Extremities-no calf tenderness Neuro- alert, oriented x 3; PERRL, EOMI Skin- warm & dry Laboratory Results: Last 24 Hours Test 08/06/17 05:14 White Blood Count 12.31 K/uL Red Blood Count 3.88 M/uL Hemoglobin 12.6 g/dL Hematocrit 34.3 % Mean Corpuscular Volume 88.4 fL Mean Corpuscular Hemoglobin 32.5 pg Mean Corpuscular Hemoglobin Concent 36.7 g/dl Platelet Count 283 K/uL Mean Platelet Volume 8.9 fL Neutrophils (%) (Auto) 57.8 % Lymphocytes (%) (Auto) 28.3 % Monocytes (%) (Auto) 10.8 % Eosinophils (%) (Auto) 2.4 % Basophils (%) (Auto) 0.2 % Neutrophils # (Auto) 7.12 K/uL Lymphocytes # (Auto) 3.48 K/uL Monocytes # (Auto) 1.33 K/uL Eosinophils # (Auto) 0.30 K/uL Basophils # (Auto) 0.02 K/uL RDW Standard Deviation 44.6 fL RDW Coefficient of Variation 13.7 % Immature Granulocyte % (Auto) 0.5 % Immature Granulocyte # (Auto) 0.06 K/uL Sodium Level 133 mmol/L Potassium Level 3.9 mmol/L Chloride Level 100 mmol/L Carbon Dioxide Level 23 mmol/L Anion Gap 10.0 mmol/L Blood Urea Nitrogen 6 mg/dl Creatinine 0.56 mg/dl Est Creatinine Clear Calc Drug Dose 87.7 ml/min Estimated GFR () 122.3 Estimated GFR (Non- 105.5 BUN/Creatinine Ratio 11.1 Random Glucose 90 mg/dl Calcium Level 9.1 mg/dl Total Bilirubin 0.4 mg/dl Aspartate Amino Transf (AST/SGOT) 15 U/L Alanine Aminotransferase (ALT/SGPT) 13 U/L Alkaline Phosphatase 93 U/L Total Protein 6.4 gm/dl Albumin 2.8 gm/dl Globulin 3.6 gm/dl Albumin/Globulin Ratio 0.8 Assessment & Plan 71 yo M recently discharged from the hospital for pneumonia presents with sepsis due to HCAP after initial pneumonia reported to have resolved. Sepsis due to HCAP CXR on admission showed diffuse left mid to lower lung infiltrate initially started on Rocephin and Azithromycin, abx was changed to Zosyn and Levaquin Blood cx no growth Hypovolemic hypotonic hyponatremia resolved on IV fluids Paranoid schizophrenia lucid mental status. Cont home medications. Stable HTN BP in the low side today Continue monitor BP closely Tobacco use tobacco cessation counseling ordered while he is an inpatient 6. Kevin's esoph cont BID PPI per outpatient regimen DVT proph: Lovenox 30mg CODE STATUS Full Code Dispo Will transfer to Medical Current Inpatient Medications: Current Inpatient Medications Medications (Trade) Dose Ordered Sig/Lupillo Route Start Time Stop Time Status Last Admin Dose Admin Enoxaparin Sodium (Lovenox Inj) 30 mg Q24H SC 08/04/17 18:00 09/03/17 17:59 08/05/17 16:51 30 MG Acetaminophen (Tylenol Tab) 650 mg Q4H PRN PO 08/04/17 13:30 09/03/17 13:29 Ondansetron HCl (Zofran Inj) 4 mg Q6H PRN IV 08/04/17 13:30 09/03/17 13:29 Polyethylene (Miralax Powder Packet) 17 gm DAILY PRN PO 08/04/17 13:30 09/03/17 13:29 Piperacillin Sod/ Tazobactam Sod (Consult) 1 ea UD PRN N/A 08/04/17 15:00 09/03/17 14:59 Levofloxacin (Consult) 1 ea UD PRN N/A 08/04/17 15:00 09/03/17 14:59 Piperacillin Sod/ Tazobactam Sod 3.375 gm/Dextrose 115 ml @ 28.75 mls/ hr Q8H IV 08/04/17 20:00 08/11/17 19:59 08/06/17 12:02 28.75 MLS/HR Levofloxacin 750 mg/Prmx 150 ml @ 100 mls/hr Q24H IV 08/04/17 16:00 08/11/17 15:59 08/05/17 16:49 100 MLS/HR Benztropine Mesylate (Cogentin Tab) 0.5 mg BID PO 08/04/17 21:15 09/03/17 21:14 08/06/17 07:43 0.5 MG Lisinopril (Zestril Tab) 5 mg BID PO 08/05/17 09:00 09/04/17 08:59 08/06/17 07:44 5 MG Metoprolol Succinate (Toprol Xl Tab) 12.5 mg DAILY PO 08/05/17 09:00 09/04/17 08:59 Potassium Chloride (Klor-Con M10) 10 meq BID PO 08/04/17 21:15 09/03/17 21:14 08/06/17 07:43 10 MEQ Ranitidine HCl (zANTac TAB) 150 mg BID PO 08/04/17 21:15 09/03/17 21:14 08/06/17 07:43 150 MG Risperidone (Risperdal Tab) 2 mg BID PO 08/04/17 21:15 09/03/17 21:14 08/06/17 07:44 2 MG Chlorpromazine HCl (Thorazine Tab) 50 mg HS PO 08/04/17 21:15 09/03/17 21:14 08/05/17 20:55 50 MG Pantoprazole Sodium (Protonix Tab) 40 mg BID PO 08/04/17 21:15 09/03/17 21:14 08/06/17 07:43 40 MG Divalproex Sodium (Depakote Extended Rel Tab) 250 mg BID PO 08/04/17 21:30 09/03/17 21:29 08/06/17 07:44 250 MG Quetiapine Fumarate (seroQUEL XR TAB) 400 mg HS PO 08/04/17 21:16 09/04/17 08:59 08/05/17 20:54 400 MG Trazodone HCl (Desyrel Tab) 50 mg HS PO 08/04/17 21:16 09/04/17 08:59 08/05/17 20:54 50 MG Enteral Nutritional Formula (Boost) 1 can TIDM PO 08/05/17 16:45 09/04/17 16:44 08/06/17 11:58 1 CAN Magnesium Oxide (Mag-Ox Tab) 400 mg BID PO 08/06/17 21:00 08/08/17 20:59
[2017-08-06] MEDS ORDERED: ALBUT/IPRATROP 3MG/0.5MG NEB 3 ML VIAL INH PRN (13:45)
[2017-08-06] MEDS: LEVOFLOXACIN 750MG / D5W IV SCH (16:10)
[2017-08-06] MEDS: ENOXAPARIN 30 MG/0.3 ML SYR SC SCH (18:37)
[2017-08-06] MEDS: MAGNESIUM OXIDE 400 MG TAB PO SCH (20:15)
[2017-08-06] MEDS: CHLORPROMAZINE HCL 25 MG TAB PO SCH (20:15)
[2017-08-06] MEDS: QUETIAPINE FUMARATE 200 MG TABCR PO SCH (20:16)
[2017-08-06] MEDS: TRAZODONE HCL 50 MG TAB PO SCH (20:16)
[2017-08-07] VITALS (10 sets, daily range): BP systolic 88–130; BP diastolic 59–81; PULSE 76–124; TEMP 36.5–36.9; O2SAT 91–96
[2017-08-07] MEDS: PIPERACILL/TAZOBAC IV 3.375 GM in DEXTROSE 5% 100ML IV SCH ×2 (04:13→11:54)
[2017-08-07] MEDS: BOOST VANILLA PO SCH ×6 (08:43→16:45)
[2017-08-07] MEDS: BENZTROPINE MESYLATE 0.5 MG TAB PO SCH ×2 (08:44→20:33)
[2017-08-07] MEDS: PANTOprazole SOD 40 MG TAB PO SCH ×2 (08:44→20:33)
[2017-08-07] MEDS: MAGNESIUM OXIDE 400 MG TAB PO SCH ×2 (08:44→20:33)
[2017-08-07] MEDS: RANITIDINE HCL 150 MG TAB PO SCH ×2 (08:46→20:33)
[2017-08-07] MEDS: DIVALPROEX 250 MG EXTENDED REL TAB PO SCH ×2 (08:47→20:33)
[2017-08-07] MEDS: METOPROLOL SUCC 25MG EXT REL TAB PO SCH (08:47)
[2017-08-07] MEDS: POTASSIUM CHLORIDE 10 MEQ TABCR PO SCH ×2 (08:47→20:33)
[2017-08-07] MEDS: LISINOPRIL 5 MG TAB PO SCH ×2 (08:48→20:33)
[2017-08-07] MEDS: RISPERIDONE 2 MG TAB PO SCH ×2 (08:48→20:33)
[2017-08-07] MEDS: LEVOFLOXACIN 750MG / D5W IV SCH (15:55)
[2017-08-07] MEDS ORDERED: LEVALBUTEROL/IPRATROPIUM NEB INH ONE (16:58)
--- NOTE | 2017-08-07 17:02 | Progress Note ---
Medicine Progress Note Date & Time of Visit: Aug 07, 2017 at 16:48. Subjective Pt was seen and examined Lying in bed with no distress Pt said that his breathing seems to improved He said that his coughing is getting more lose denies any chest pain, palpitation and fever Objective Last 8 Hrs Date Time Temp Pulse Resp B/P (MAP) Pulse Ox O2 Delivery O2 Flow Rate FiO2 08/07/17 14:42 95 16 95 Room Air 08/07/17 12:00 Room Air 08/07/17 11:37 36.6 114 98/63 (75) 95 Room Air 114 Physical Exam: General- No acute distress Head- atraumatic Eyes- PERRL, EOMI ENT- oropharynx clear Neck- supple, no JVD Lungs- mild coarse breath sound Heart- regular rhythm Abdomen- normal bowel sounds, soft Extremities-no calf tenderness Neuro- alert, oriented x 3; PERRL, EOMI Skin- warm & dry Assessment & Plan 71 yo M recently discharged from the hospital for pneumonia presents with sepsis due to HCAP after initial pneumonia reported to have resolved. Sepsis due to HCAP CXR on admission showed diffuse left mid to lower lung infiltrate Initially started on Rocephin and Azithromycin, abx was changed to Zosyn and Levaquin Will D/C Zosyn today Continue levaquin Blood cx no growth continue nebulizer treatment and adding guaifenesin for cough Hypovolemic hypotonic hyponatremia resolved on IV fluids Paranoid schizophrenia lucid mental status. Cont home medications. Stable HTN BP in the low side today Continue monitor BP closely Tobacco use tobacco cessation counseling ordered while he is an inpatient Hx Kevin's esophagus cont BID PPI per outpatient regimen DVT proph: Lovenox 30mg CODE STATUS Full Code Dispo Will transfer to Medical Current Inpatient Medications: Current Inpatient Medications Medications (Trade) Dose Ordered Sig/Lupillo Route Start Time Stop Time Status Last Admin Dose Admin Enoxaparin Sodium (Lovenox Inj) 30 mg Q24H SC 08/04/17 18:00 09/03/17 17:59 08/06/17 18:37 30 MG Acetaminophen (Tylenol Tab) 650 mg Q4H PRN PO 08/04/17 13:30 09/03/17 13:29 Ondansetron HCl (Zofran Inj) 4 mg Q6H PRN IV 08/04/17 13:30 09/03/17 13:29 Polyethylene (Miralax Powder Packet) 17 gm DAILY PRN PO 08/04/17 13:30 09/03/17 13:29 Levofloxacin (Consult) 1 ea UD PRN N/A 08/04/17 15:00 09/03/17 14:59 Levofloxacin 750 mg/Prmx 150 ml @ 100 mls/hr Q24H IV 08/04/17 16:00 08/11/17 15:59 08/07/17 15:55 100 MLS/HR Benztropine Mesylate (Cogentin Tab) 0.5 mg BID PO 08/04/17 21:15 09/03/17 21:14 08/07/17 08:44 0.5 MG Lisinopril (Zestril Tab) 5 mg BID PO 08/05/17 09:00 09/04/17 08:59 08/06/17 20:16 5 MG Metoprolol Succinate (Toprol Xl Tab) 12.5 mg DAILY PO 08/05/17 09:00 09/04/17 08:59 Potassium Chloride (Klor-Con M10) 10 meq BID PO 08/04/17 21:15 09/03/17 21:14 08/07/17 08:47 10 MEQ Ranitidine HCl (zANTac TAB) 150 mg BID PO 08/04/17 21:15 09/03/17 21:14 08/07/17 08:46 150 MG Risperidone (Risperdal Tab) 2 mg BID PO 08/04/17 21:15 09/03/17 21:14 08/07/17 08:48 2 MG Chlorpromazine HCl (Thorazine Tab) 50 mg HS PO 08/04/17 21:15 09/03/17 21:14 08/06/17 20:15 50 MG Pantoprazole Sodium (Protonix Tab) 40 mg BID PO 08/04/17 21:15 09/03/17 21:14 08/07/17 08:44 40 MG Divalproex Sodium (Depakote Extended Rel Tab) 250 mg BID PO 08/04/17 21:30 09/03/17 21:29 08/07/17 08:47 250 MG Quetiapine Fumarate (seroQUEL XR TAB) 400 mg HS PO 08/04/17 21:16 09/04/17 08:59 08/06/17 20:16 400 MG Trazodone HCl (Desyrel Tab) 50 mg HS PO 08/04/17 21:16 09/04/17 08:59 08/06/17 20:16 50 MG Enteral Nutritional Formula (Boost) 1 can TIDM PO 08/05/17 16:45 09/04/17 16:44 08/07/17 11:54 1 CAN Magnesium Oxide (Mag-Ox Tab) 400 mg BID PO 08/06/17 21:00 08/08/17 20:59 08/07/17 08:44 400 MG Albuterol/ Ipratropium (Duoneb) 3 ml Q4R PRN INH 08/06/17 13:45 09/05/17 13:44 08/06/17 15:37 3 ML
[2017-08-07] MEDS ORDERED: LEVALBUTEROL 0.63MG/3 ML NEB INH ONE (17:15)
[2017-08-07] MEDS ORDERED: GUAIFENESIN 200 MG TAB PO ONE (17:15)
[2017-08-07] MEDS ORDERED: IPRATROPIUM BROMIDE NEB SOLN 0.02% 2.5 ML VIAL INH ONE (17:15)
[2017-08-07] MEDS ORDERED: ALBUT/IPRATROP 3MG/0.5MG NEB 3 ML VIAL INH SCH (18:00)
[2017-08-07] MEDS: ENOXAPARIN 30 MG/0.3 ML SYR SC SCH (18:22)
[2017-08-07] MEDS: GUAIFENESIN 200 MG TAB PO SCH (20:33)
[2017-08-07] MEDS: CHLORPROMAZINE HCL 25 MG TAB PO SCH (20:33)
[2017-08-07] MEDS: QUETIAPINE FUMARATE 200 MG TABCR PO SCH (20:33)
[2017-08-07] MEDS: TRAZODONE HCL 50 MG TAB PO SCH (20:33)
[2017-08-07] MEDS: LEVALBUTEROL 0.63MG/3 ML NEB INH SCH (20:38)
[2017-08-07] MEDS ORDERED: LEVALBUTEROL/IPRATROPIUM NEB INH SCH (21:00)
[2017-08-08 01:30] VITALS: PULSE 85; O2SAT 96
[2017-08-08] MEDS: IPRATROPIUM BROMIDE NEB SOLN 0.02% 2.5 ML VIAL INH SCH ×3 (02:01→14:25)
[2017-08-08] MEDS: LEVALBUTEROL 0.63MG/3 ML NEB INH SCH ×3 (02:01→14:25)
[2017-08-08] MEDS: GUAIFENESIN 200 MG TAB PO SCH ×2 (06:13→13:36)
[2017-08-08 07:01] VITALS: BP 118/73; PULSE 83; TEMP 36.8; O2SAT 92
[2017-08-08 07:06] VITALS: PULSE 95; O2SAT 91
[2017-08-08] MEDS: BOOST VANILLA PO SCH ×4 (08:00→12:00)
[2017-08-08 08:24] LABS: MEAN CELL VOLUME 90.5 fL (80-100); MEAN CORPUSCULAR HEMOGLOBIN 31.7 pg (25-34); MEAN PLATELET VOLUME 8.6 fL (7.4-10.4); PLATELET COUNT 342 K/uL (130-400); RED BLOOD COUNT 4.42 M/uL (4.7-6.1); WHITE BLOOD COUNT 9.13 K/uL (4.8-10.8)
[2017-08-08 08:57] LABS: BUN/CREATININE RATIO 11.6 (10-20); CALCIUM 9.2 mg/dl (8.5-10.1); CREATININE 0.82 mg/dl (0.60-1.40); MAGNESIUM 2.1 mg/dl (1.8-2.4); POTASSIUM 3.9 mmol/L (3.5-5.1)
[2017-08-08] MEDS: BENZTROPINE MESYLATE 0.5 MG TAB PO SCH (09:28)
[2017-08-08] MEDS: DIVALPROEX 250 MG EXTENDED REL TAB PO SCH (09:28)
[2017-08-08] MEDS: MAGNESIUM OXIDE 400 MG TAB PO SCH (09:30)
[2017-08-08] MEDS: POTASSIUM CHLORIDE 10 MEQ TABCR PO SCH (09:30)
[2017-08-08] MEDS: RISPERIDONE 2 MG TAB PO SCH (09:31)
[2017-08-08] MEDS: PANTOprazole SOD 40 MG TAB PO SCH (09:31)
[2017-08-08] MEDS: METOPROLOL SUCC 25MG EXT REL TAB PO SCH (09:32)
[2017-08-08] MEDS: RANITIDINE HCL 150 MG TAB PO SCH (09:33)
[2017-08-08] MEDS: LISINOPRIL 5 MG TAB PO SCH (09:34)
--- NOTE | 2017-08-08 12:28 | Progress Note ---
Medicine Progress Note Date & Time of Visit: Aug 08, 2017 at 12:23. Subjective Pt was seen and examined Lying in bed with no distress Pt was walking in the hallway and doing much better he said that the cough improves denies any chest pain, palpitation, dizziness and sob Objective Last 8 Hrs Date Time Temp Pulse Resp B/P (MAP) Pulse Ox O2 Delivery O2 Flow Rate FiO2 08/08/17 08:00 Room Air 08/08/17 07:06 95 16 91 Room Air 08/08/17 07:01 36.8 83 20 118/73 (88) 92 Room Air Physical Exam: General- No acute distress Head- atraumatic Eyes- PERRL, EOMI ENT- oropharynx clear Neck- supple, no JVD Lungs- No wheezing, decrease breath sound Heart- regular rhythm Abdomen- normal bowel sounds, soft Extremities-no calf tenderness Neuro- alert, oriented x 3; PERRL, EOMI Skin- warm & dry Laboratory Results: Last 24 Hours Test 08/08/17 08:04 White Blood Count 9.13 K/uL Red Blood Count 4.42 M/uL Hemoglobin 14.0 g/dL Hematocrit 40.0 % Mean Corpuscular Volume 90.5 fL Mean Corpuscular Hemoglobin 31.7 pg Mean Corpuscular Hemoglobin Concent 35.0 g/dl RDW Standard Deviation 46.1 fL RDW Coefficient of Variation 13.9 % Platelet Count 342 K/uL Mean Platelet Volume 8.6 fL Sodium Level 131 mmol/L Potassium Level 3.9 mmol/L Chloride Level 97 mmol/L Carbon Dioxide Level 23 mmol/L Anion Gap 11.0 mmol/L Blood Urea Nitrogen 10 mg/dl Creatinine 0.82 mg/dl Est Creatinine Clear Calc Drug Dose 60.0 ml/min Estimated GFR () 104.6 Estimated GFR (Non- 90.2 BUN/Creatinine Ratio 11.6 Random Glucose 122 mg/dl Calcium Level 9.2 mg/dl Magnesium Level 2.1 mg/dl Assessment & Plan 71 yo M recently discharged from the hospital for pneumonia presents with sepsis due to HCAP after initial pneumonia reported to have resolved. Sepsis due to HCAP CXR on admission showed diffuse left mid to lower lung infiltrate Initially started on Rocephin and Azithromycin, abx was changed to Zosyn and Levaquin Will D/C Zosyn today IV levaquin changed to PO Blood cx no growth continue nebulizer treatment and guaifenesin for cough Clinically improved Hypovolemic hypotonic hyponatremia Increase intake continue monitor NA Paranoid schizophrenia lucid mental status. Cont home medications. 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 DVT proph: Lovenox 30mg CODE STATUS Full Code Dispo Discharge today to [facility] Current Inpatient Medications: Current Inpatient Medications Medications (Trade) Dose Ordered Sig/Lupillo Route Start Time Stop Time Status Last Admin Dose Admin Enoxaparin Sodium (Lovenox Inj) 30 mg Q24H SC 08/04/17 18:00 09/03/17 17:59 08/07/17 18:22 30 MG Acetaminophen (Tylenol Tab) 650 mg Q4H PRN PO 08/04/17 13:30 09/03/17 13:29 Ondansetron HCl (Zofran Inj) 4 mg Q6H PRN IV 08/04/17 13:30 09/03/17 13:29 Polyethylene (Miralax Powder Packet) 17 gm DAILY PRN PO 08/04/17 13:30 09/03/17 13:29 Levofloxacin (Consult) 1 ea UD PRN N/A 08/04/17 15:00 09/03/17 14:59 Levofloxacin 750 mg/Prmx 150 ml @ 100 mls/hr Q24H IV 08/04/17 16:00 08/11/17 15:59 08/07/17 15:55 100 MLS/HR Benztropine Mesylate (Cogentin Tab) 0.5 mg BID PO 08/04/17 21:15 09/03/17 21:14 08/08/17 09:28 0.5 MG Lisinopril (Zestril Tab) 5 mg BID PO 08/05/17 09:00 09/04/17 08:59 08/08/17 09:34 5 MG Metoprolol Succinate (Toprol Xl Tab) 12.5 mg DAILY PO 08/05/17 09:00 09/04/17 08:59 08/08/17 09:32 12.5 MG Potassium Chloride (Klor-Con M10) 10 meq BID PO 08/04/17 21:15 09/03/17 21:14 08/08/17 09:30 10 MEQ Ranitidine HCl (zANTac TAB) 150 mg BID PO 08/04/17 21:15 09/03/17 21:14 08/08/17 09:33 150 MG Risperidone (Risperdal Tab) 2 mg BID PO 08/04/17 21:15 09/03/17 21:14 08/08/17 09:31 2 MG Chlorpromazine HCl (Thorazine Tab) 50 mg HS PO 08/04/17 21:15 09/03/17 21:14 08/07/17 20:33 50 MG Pantoprazole Sodium (Protonix Tab) 40 mg BID PO 08/04/17 21:15 09/03/17 21:14 08/08/17 09:31 40 MG Divalproex Sodium (Depakote Extended Rel Tab) 250 mg BID PO 08/04/17 21:30 09/03/17 21:29 08/08/17 09:28 250 MG Quetiapine Fumarate (seroQUEL XR TAB) 400 mg HS PO 08/04/17 21:16 09/04/17 08:59 08/07/17 20:33 400 MG Trazodone HCl (Desyrel Tab) 50 mg HS PO 08/04/17 21:16 09/04/17 08:59 08/07/17 20:33 50 MG Enteral Nutritional Formula (Boost) 1 can TIDM PO 08/05/17 16:45 09/04/17 16:44 08/07/17 16:45 1 CAN Magnesium Oxide (Mag-Ox Tab) 400 mg BID PO 08/06/17 21:00 08/08/17 20:59 08/08/17 09:30 400 MG Guaifenesin (Organidin Nr Tab) 200 mg Q8 PO 08/07/17 22:00 09/06/17 21:59 08/08/17 06:13 200 MG Ipratropium [place] (Atrovent 0.02% 0.5MG/2.5ML Neb) 0.5 mg Q6R INH 08/07/17 21:00 09/06/17 20:59 08/08/17 07:23 0.5 MG Levalbuterol (Xopenex 0.63 Mg/ 3 Ml Neb) 0.63 mg Q6R INH 08/07/17 21:00 09/06/17 20:59 08/08/17 07:22 0.63 MG
[2017-08-08] MEDS ORDERED: LVQ750 PO (12:32)
[2017-08-08] MEDS ORDERED: ATRINS INH (12:32)
[2017-08-08] MEDS ORDERED: XPNINS INH (12:32)
--- NOTE | 2017-08-08 12:38 | Discharge Instructions ---
Discharge Instructions Date of Service Aug 08, 2017. Admission Reason for Admission: Sepsis Discharge Discharge Diagnosis / Problem: Pneumonia, Hypovolemic hypotonic hyponatremia , Tobacco abuse Discharge Goals Goal(s): Decrease discomfort, Improve function, Improve disease control Activity Recommendations Activity Limitations: resume your previous activity . Instructions / Follow-Up Instructions / Follow-Up Discharge to [facility] Complete course of antibiotic Monitor sodium level Counseling on tobacco cessation Fall precaution Continue PT/OT Current Hospital Diet Patient's current hospital diet: Discharge Diet Recommended Diet: AHA Diet (Heart Healthy) Pending Studies Studies pending at discharge: no Medical Emergencies . Who to Call and When: Medical Emergencies: If at any time you feel your situation is an emergency, please call 911 immediately. . Non-Emergent Contact Non-Emergency issues call your: Primary Care Provider Call Non-Emergent contact if: you have any medication questions . . "Provider Documentation" section prepared by Tyrel López. . VTE Core Measure Inpt VTE Proph given/why not?: Enoxaparin (Lovenox)SQ
[2017-08-08] MEDS ORDERED: LEVOFLOXACIN 750 MG TAB PO ONE (13:00)
[2017-08-08 14:25] VITALS: PULSE 90; O2SAT 94
[2017-08-08 15:13] VITALS: BP 118/73; PULSE 90; TEMP 36.8; O2SAT 94
[2017-08-09] MEDS ORDERED: LEVOFLOXACIN 750 MG TAB PO SCH (11:00)
--- NOTE | 2017-08-14 01:01 | Discharge Summary ---
Discharge Summary Date of Service Aug 14, 2017. Discharge Summary Admission Date: Aug 04, 2017 at 13:06 Discharge Date: Aug 08, 2017 Discharge Disposition: Personal care Principal Diagnosis: Sepsis due to HCAP Secondary Diagnoses/Problems: Pneumonia Hypovolemic hypotonic hyponatremia Tobacco abuse Paranoid schizophrenia HTN Procedures: CHEST ONE VIEW PORTABLE CLINICAL HISTORY: dizzy mental status change COMPARISON STUDY: 06/26/2016 FINDINGS: Poorly defined parenchymal infiltrate left mid to lower lung. Right lung is clear. No significant cardiac enlargement. IMPRESSION: Diffuse left mid to lower lung infiltrate. The above report was generated using voice recognition software. It may contain grammatical, syntax or spelling errors. Electronically signed by: Ron Friend M.D. 08/04/2017 11:31 AM Dictated Date/Time: 08/04/2017 11:30 AM The status of this report is Signed Medication Reconciliation New Medications: Ipratropium [place] (Ipratropium [place]) 0.5 Mg/2.5 Ml Nebu 0.5 MG INH Q6R for 7 Days Levalbuterol (Levalbuterol HCl) 0.63 Mg/3 Ml Nebu 0.63 MG INH Q6R for 7 Days Levofloxacin (Levofloxacin) 750 Mg Tab 750 MG PO DAILY@11 for 2 Days, TAB Continued Medications: Acetaminophen (Tylenol) 325 Mg Tab 1000 MG PO Q8 PRN for Pain, TAB Benztropine Mesylate (Benztropine Mesylate) 0.5 Mg Tab 0.5 MG PO BID Betamethasone Dip Aug 0.05% (Diprolene 0.05%) 0.05 % Oin Unknown Dose TOP DAILY betamethasone dp 0.05% (mix with clotrimazole cream) apply topically to affected area(s) (both feet) as needed daily Calcium Carbonate (Antacid) (Calcium Antacid) 500 Mg Chw 1-2 TABS PO DAILY Calcium Carbonate (Antacid) (Calcium Antacid) 500 Mg Chw 1-2 TABS PO BID as needed for upset stomach/heartburn Chlorpromazine Hcl (Thorazine) 50 Mg Tab 50 MG PO HS, TAB Clotrimazole (Lotrimin 1%) 90 Appln/30 Gm Cr 1 EX DAILY mix with betamethasone cream apply topically to affected area(s) (both feet) as needed daily Diphenhydramine Hcl (Diphenhydramine Hcl) 25 Mg Tab 25 MG PO Q8 PRN for ALLERGIC REACTION Divalproex Sodium (Depakote Er) 250 Mg Tab 1 TAB PO BID for 30 Days, #30 TAB 2 Refills Esomeprazole Magnesium (Nexium) 40 Mg Capcr 40 MG PO BID, CAP Guaifenesin Ext Rel (Mucinex Ext Rel) 600 Mg Tabcr 600 MG PO BID PRN for CONGESTION, TAB Lactase (Dairy Relief) 3,000 Unit Tab 9000 UNITS PO QID takes one tablet (9000u) four times daily, and also prior to meals and snacks Lisinopril (Zestril) 5 Mg Tab 5 MG PO BID, TAB Loperamide Hcl (Imodium A-D) 2 Mg Tab 2-4 MG PO UD PRN TAKE TWO CAPSULES (4 MG) AFTER FIRST LOOSE STOOL THEN ONE CAPSULE (2 MG) AFTER EACH SUBSEQUENT LOOSE STOOL. DO NOT EXCEED 4 CAPSULES (8 MG) IN 24 HOURS. Magnesium Sulfate (Laxative) (Epsom Salt) 1 Pow Pow Unknown Dose EX 2XWK soak feet, in tub, once every saturday and Metoprolol Succinate (Metoprolol Succinate ER) 25 Mg Tabcr 12.5 MG PO DAILY Ondansetron (Ondansetron HCl) 4 Mg Tab 4 MG PO Q4 PRN for Nausea Potassium Chloride (Micro-K Ext Rel) 10 Meq Capcr 10 MEQ PO BID, CAP Psyllium (Reguloid) 28.3 % Pow Unknown Dose PO HS regulid sf orange powder, mix in 8oz of liquid and drink, ( one teaspoon, by mouth daily at bedtime as needed Quetiapine Fumarate Xr (Seroquel Xr Tab) 400 Mg Tabcr 400 MG PO DAILY, TAB Ranitidine (Zantac) 150 Mg Tab 150 MG PO BID, TAB Risperidone (Risperdal) 2 Mg Tab 2 MG PO BID, TAB Trazodone Hcl (Trazodone) 50 Mg Tab 50 MG PO DAILY, TAB [supplement drink ] () 1 BTL PO DAILY Admission Information HPI (per Admitting provider): 71 yo M who was recently admitted to [facility] in Jun for sepsis 2/2 pneumonia presents with "feeling off" and unsteady on his feet when walking around [facility] this morning. He states that he is a smoker with a chronic cough, but he has felt worse in the past 2 days with some sputum production different than his usual. He denies any shortness of breath, chest pain, headache, abdominal pain, diarrhea, blood per rectum, sore throat, fevers or chills. He does admit to vomiting 1-2 times daily for the past two days. Although he doesn't admit to abdominal pain he did have some discomfort when I palpated his abdomen on exam, but states that he hasn't had a BM in three days and currently has to urinate. He has resided at [facility] for the past 7 years. He states that he has no other family members and that someone at is his mPOA. He does state that he feels better since his last admission, and feels the prior pneumonia was completely resolved. In the ER, he was hypotensive with BP responsive to IVF administration. CXR revealed an infiltrate on the left side. With this, symptoms and an elevated WBC count he was given Azithromax and Rocephin and admitted to the hospital for further workup and treatment. Physical Exam (per Admitting): General Appearance: WD/WN, no apparent distress, + pertinent finding (not requiring oxygen, not working to breathe, no conversational dyspnea. ) Head: normocephalic, atraumatic Eyes: normal inspection, PERRL, sclerae normal ENT: normal ENT inspection, hearing grossly normal, + pertinent finding ( postnasal drip noted, sticks tongue out and moves side to side often) Neck: supple, no adenopathy, no JVD, trachea midline Respiratory/Chest: lungs clear, normal breath sounds, no respiratory distress, no accessory muscle use Cardiovascular: regular rate, rhythm, no edema, no gallop, no murmur, normal peripheral pulses Abdomen/GI: normal bowel sounds, soft, + tenderness (generalized discomfort. ) Back: normal inspection Extremities/Musculoskelatal: normal inspection, no pedal edema, normal range of motion Neurologic/Psych: television mechanic II-XII nml as tested, no motor/sensory deficits, alert , oriented x 3 Skin: normal color, warm/dry, no rash Lymphatic: + cervical node abnormality Hospital Course 71 yo M recently discharged from the hospital for pneumonia presents with sepsis due to HCAP after initial pneumonia reported to have resolved. Sepsis due to HCAP CXR on admission showed diffuse left mid to lower lung infiltrate Initially started on Rocephin and Azithromycin, abx was changed to Zosyn and Levaquin Will D/C Zosyn today IV levaquin changed to PO Blood cx no growth continue nebulizer treatment and guaifenesin for cough Clinically improved Hypovolemic hypotonic hyponatremia Increase intake continue monitor NA Paranoid schizophrenia lucid mental status. Cont home medications. 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 DVT proph: Lovenox 30mg CODE STATUS Full Code Dispo Discharge today to [facility] Total time spent on discharge = 35 minutes This includes examination of the patient, discharge planning, medication reconciliation, and communication with other providers. Discharge Instructions Discharge Instructions Date of Service Aug 08, 2017. Admission Reason for Admission: Sepsis Discharge Discharge Diagnosis / Problem: Pneumonia, Hypovolemic hypotonic hyponatremia , Tobacco abuse Discharge Goals Goal(s): Decrease discomfort, Improve function, Improve disease control Activity Recommendations Activity Limitations: resume your previous activity . Instructions / Follow-Up Instructions / Follow-Up Discharge to [facility] today Complete course of antibiotic Monitor sodium level Counseling on tobacco cessation Fall precaution Continue PT/OT Current Hospital Diet Patient's current hospital diet: Discharge Diet Recommended Diet: AHA Diet (Heart Healthy) Pending Studies Studies pending at discharge: no Medical Emergencies . Who to Call and When: Medical Emergencies: If at any time you feel your situation is an emergency, please call 911 immediately. . Non-Emergent Contact Non-Emergency issues call your: Primary Care Provider Call Non-Emergent contact if: you have any medication questions . . "Provider Documentation" section prepared by Tyrel López. . VTE Core Measure Inpt VTE Proph given/why not?: Enoxaparin (Lovenox)SQ [facility] [employer]
== END 2017-08-08 16:24 | disposition home or self-care (01) | DRG 871 ==
LOC: EDBD 10:32 → C.EDA 10:34 → C.2T 13:06 → ENRESERV 13:40 → C.MS2W 08-07 18:36
PROVIDERS: ADMIT Hospitalist; ATTEND Internal Medicine
DX: A41.9 Sepsis, unspecified organism (principal); J18.9 Pneumonia, unspecified organism; E87.1 Hypo-osmolality and hyponatremia; F20.0 Paranoid schizophrenia; Y95 Nosocomial condition; E86.1 Hypovolemia; I10 Essential (primary) hypertension; K22.70 Barrett's esophagus without dysplasia; F17.200 Nicotine dependence, unspecified, uncomplicated; Z79.899 Other long term (current) drug therapy

== ENCOUNTER → 2018-05-28 | Outpatient (CLI) | payer OTHER ==
[~2018-05-28] MED LIST changes: +ATRINS INH; +BENZ0.5T2 PO; -BENZ1TAB2 PO; +CHLO1TAB15 PO; +DIPH25TA33 PO; +DIVA250T PO; -DIVA250T4 PO; -HYDR2.5C37 RE; -LACT1TAB20 PO; -LORA-741 PO; +LVQ750 PO; -MAGN400T5 PO; -ONDA4TAB4 PO; +RANI150T85 PO; +XPNINS INH; +ZFR4 PO; -ZNTT/150 PO; +[UNRECOGNIZED DRUG - CODE] PO
[2018-05-28 08:42] LABS: HEMATOCRIT 38.9 % (42-52); HEMOGLOBIN 14.3 g/dL (14.0-18.0); MEAN CELL VOLUME 88.2 fL (80-100); MEAN CORPUSCULAR HEMOGLOBIN 32.4 pg (25-34); MEAN CORPUSCULAR HGB CONC 36.8 g/dl (32-36); MEAN PLATELET VOLUME 9.7 fL (7.4-10.4); PLATELET COUNT 336 K/uL (130-400); RED CELL DISTRIBUTION WIDTH CV 14.7 % (11.5-14.5); RED CELL DISTRIBUTION WIDTH SD 47.6 fL (36.4-46.3); WHITE BLOOD COUNT 8.99 K/uL (4.8-10.8)
--- NOTE | 2018-06-10 07:53 | CODING QUERY NO DIAGNOSIS ---
TREATMENT RENDERED WITHOUT A DIAGNOSIS Dr. Roger, To promote full compliance with coding requirements relating to patient care, physician participation is requested in all cases of medical coder uncertainty. Please assist us with providing a diagnosis/symptom for the test(s) below: A diagnosis/symptom was not documented on your Order. A valid diagnosis/symptom is required to bill all insurances. Please remember that we are unable to code a diagnosis of rule out, probable, possible, questionable, or suspected. Tests that require a diagnosis: * CBC W/O DIFF DIAGNOSIS: DATE OF SERVICE: 05/28/18 Provider Signature: Date: Thank you Bruce Gagnon [facility] Information Management Once completed, please kindly fax back to [phone] For questions please call [phone]
== END | disposition home or self-care (01) ==
LOC: C.LABSPEC 08:05
PROVIDERS: ATTEND Internal Medicine
DX: D64.9 Anemia, unspecified (principal)

== ENCOUNTER 2019-01-22 09:10 | Inpatient (IN) ==
[2019-01-22] MEDS ORDERED: SODIUM CHLORIDE 0.9% 1000ML 1,000 ML IV SCH (09:45)
[2019-01-22] MEDS ORDERED: PANTOPRAZOLE BOLUS/DRIP 1 EA IV STA (09:50)
[2019-01-22] MEDS ORDERED: PANTOprazole 80 MG in DEXTROSE 5% 100 ML IV ONE (09:50)
--- NOTE | 2019-01-22 09:55 | XRay Report ---
XR chest 1V portable CLINICAL HISTORY: Sepsis COMPARISON STUDY: January 06, 2019 FINDINGS: The heart is normal in size. There is a retrocardiac opacity consistent with a hiatal herni a. There is no failure. There is no lobar consolidation. There is mild chronic interstitial thickenin g.[ No pleural effusions are visualized. IMPRESSION: Mild chronic interstitial thickening. No acute findings. Electronically signed by: Frankie Vela M.D. 01/22/2019 9:53 AM
[2019-01-22] MEDS ORDERED: SODIUM CHLORIDE 0.9% 250 ML IV PRN (10:12)
[2019-01-22 10:21] LABS: iSTAT Hemoglobin 7.1 g/dl (14.0-18.0); iSTAT Ionized Calcium 1.02 mmol/l (1.12-1.32); iSTAT Potassium 4.4 mEq/L (3.3-5.0)
[2019-01-22 10:24] LABS: Base Excess VBG -1.3 mEq/L; HCO3 VBG 23 mmol/L; Oxygen Saturation VBG < 60.0 %; PCO2 VBG 35 mmHg (38-50); PO2 VBG 31 mmHg; pH VBG 7.44 (7.36-7.41)
[2019-01-22] MEDS ORDERED: ONDANSETRON INJ 2 MG/ML 2 ML VIAL ONE (10:30)
[2019-01-22 10:42] LABS: Hematocrit (blood only) 20.8 % (42-52); Hemoglobin 7.2 g/dL (14.0-18.0); Mean Corpuscular Hgb Conc 34.6 g/dL (32-36); Mean Corpuscular Volume 83.9 fL (80-100); Mean Platelet Volume 9.3 fL (7.4-10.4); Platelet Count 362 K/uL (130-400); RDW Coefficient of Variation 15.3 % (11.5-14.5); RDW Standard Deviation 47.5 fL (36.4-46.3); Red Blood Count 2.48 M/uL (4.7-6.1); White Blood Count 15.03 K/uL (4.8-10.8)
[2019-01-22] MEDS: PANTOprazole 40 MG in DEXTROSE 5% 100 ML IV SCH ×3 (10:45→20:18)
[2019-01-22 10:47] LABS: INR 1.5 (0.9-1.1); Partial Thromboplastin Ratio 0.9; Partial Thromboplastin Time 24.9 Seconds (21.0-31.0); Prothrombin Time 14.9 Seconds (9.0-12.0)
[2019-01-22 10:52] LABS: Albumin Level 2.4 gm/dl (3.4-5.0); BUN Creatinine Ratio 49.1 (10-20); Basophils # (auto) 0.01 K/uL (0-0.2); Basophils % (auto) 0.1 %; Calcium 7.3 mg/dl (8.5-10.1); Creatinine Clr Calc Pharmacy 58.1 ml/min; Est GFR (African American) 87.4; Est GFR (Non-African American) 75.4; Immature Granulocytes # (auto) 0.13 K/uL (0.00-0.02); Immature Granulocytes % (auto) 0.9 %; Lymphocytes # (auto) 0.83 K/uL (1.2-3.4); Lymphocytes % (auto) 5.5 %; Magnesium 1.3 mg/dl (1.8-2.4); Monocytes # (auto) 0.65 K/uL (0.11-0.59); Monocytes % (auto) 4.3 %; Neutrophils # (auto) 13.41 K/uL (1.4-6.5); Neutrophils % (auto) 89.2 %; Ovalocytes 1+; Potassium 4.5 mmol/L (3.5-5.1)
[2019-01-22 10:55] LABS: Albumin Globulin Ratio 0.8 (0.9-2); Bilirubin,Total 0.3 mg/dl (0.2-1); Globulin 3.1 gm/dl (2.5-4.0); Total Protein 5.5 gm/dl (6.4-8.2)
[2019-01-22] MEDS ORDERED: PIPERACILL/TAZOBAC CONSULT ACTIVE PRN (11:02)
[2019-01-22] MEDS ORDERED: PIPERACILLIN/TAZOBACTAM 4.5 GM/120 ML BAG IV ONE (11:02)
[2019-01-22] MEDS ORDERED: VANCOMYCIN HCL 1,250 MG in SODIUM CHLORIDE 0.9% 500 ML IV ONE (11:02)
[2019-01-22] MEDS ORDERED: VANCOMYCIN CONSULT ACTIVE PRN (11:02)
--- NOTE | 2019-01-22 12:24 | History & Physical Report ---
Date of Service January 22, 2019 Assessment & Plan (1) Upper GI bleed: (2) Anemia: Pt presented to ER from [facility] with complaint of coffee-ground emesis, SBP 90's and P: 140. Patient reports some epigastric abdominal pressure. He denies any current nausea. Reports had BM yesterday unsure of any changes in coloration. Upon ER arrival patient afebrile, pulse: 120, respirations 20, BP 71/56, 90% on room air. No further emesis noted while in ER. H/H: 7.2/20.8. INR: 1.5, BUN: 49, Cr: 1.0. WBC: 15, lactate: 5. Patient was given 1 L NSS, Zofran, Protonix bolus and drip, Zosyn, vancomycin and was typed and crossed for 2 units PRBCs with 1st unit being transfused. P: 120, BP: 86/54. -ICU for further evaluation -NSS 125ml/hr -protonix drip -NPO -Transfuse 2 units PRBCs -monitor H&H and transfuse as needed -GI consult, electronic prepress technician aware -monitor CBC, BMP (3) Kevin esophagus: (4) History of esophageal cancer: Pt with hx Kevin's esophagus. 11/20/18 EGD: Nodular ulcerated lesion. EUS: Mass lower third esophagus. Biopsies positive for adenocarcinoma. Was to follow with GI at [facility] -Current PPI drip (5) Leukocytosis: (6) Elevated lactic acid level: Afebrile in ER. No recent fever/chills reported. WBC: 15. Lactate: 5.1 In ER was given 1L NSS, zosyn, vancomycin -pending blood cultures -pending UA, urine culture -trend lactate -IVF -will continue zosyn and vancomycin for now (7) Hypomagnesemia: magnesium: 1.3 -replace and monitor (8) COPD (chronic obstructive pulmonary disease): Hx COPD. On albuterol or ipratropium. Not on inhaled steroids -xopenex/atrovent nebs prn (9) Paranoid schizophrenia: -will hold home meds at this time while npo (10) HTN (hypertension): currently hypotensive -will hold metoprolol for now DVT Prophylaxis -SCDs Full Code as per discussion with pt Pt was seen with Dr Swift. See addendum History of Present Illness Chief Complaint: Coffee Ground Emesis Primary Care Provider: Personal Care, [facility] Pt is 73 y/o M with PMH COPD, HTN, Kevin's esophagus, recent diagnosis of esophageal adenocarcinoma in 11/2017, paranoid schizophrenia, chronic hyponatremia, tobacco use, presented to ER from [facility] with complaint of coffee-ground emesis. Reported staff found patient this morning with coffee-ground emesis on his bed. And staff there report pt was hypotensive with SBP 90's and P: 140. Patient reports some epigastric abdominal pressure. He denies any current nausea. Reports had BM yesterday unsure of any changes in coloration. Reported that pt had metoprolol, binzotropine, divalporex this am and hasn't eaten since midnight. Denies fever/chills, diaphoresis, FARIAS, dizziness, syncope, vision changes, neck pain, CP, SOB, orthopnea, palpitations, cough, sore throat, choking, otalgia, rhinorrhea, paresthesias, weakness, extremity edema, rashes, urinary symptoms. 11/20/18 EGD: Nodular ulcerated lesion. EUS: Mass lower third esophagus. Biopsies positive for adenocarcinoma. Patient was to follow with GI at [facility] and had appointment today. Upon ER arrival patient afebrile, pulse: 120, respirations 20, BP 71/56, 90% on room air. No further emesis noted while in ER. H/H: 7.2/20.8. INR: 1.5, BUN: 49, Cr: 1.0. WBC: 15, lactate: 5. Patient was given 1 L NSS, Zofran, Protonix bolus and drip, Zosyn, vancomycin and was typed and crossed for 2 units PRBCs with 1st unit being transfused. P: 120, BP: 86/54. Pt will be admitted to ICU for further observation and treatment. Allergies Allergy/AdvReac Type Severity Reaction Status Date / Time buspirone Allergy Unknown Verified 01/22/19 10:35 clonazepam Allergy Unknown unknown Verified 01/22/19 10:35 clozapine Allergy Unknown Verified 01/22/19 10:35 Home Medications Home Medications Medication Instructions Recorded Confirmed Type Dairy Relief 9,000 unit PO QID 09/09/18 01/22/19 History acetaminophen [Acetaminophen Extra 1,000 mg PO Q8H PRN 09/09/18 01/22/19 History Strength] albuterol sulfate [Ventolin HFA] 2 puff INHALATION QID PRN 09/09/18 01/22/19 History aspirin [Aspirin Low Dose] 81 mg PO QAM 09/09/18 01/22/19 History benztropine 0.5 mg PO BID 09/09/18 01/22/19 History calcium carbonate [Calcium Antacid] 200 - 400 mg PO DAILY 09/09/18 01/22/19 History divalproex 250 mg PO BID 09/09/18 01/22/19 History guaifenesin [Mucinex] 600 mg PO BID PRN 09/09/18 01/22/19 History metoprolol succinate 12.5 mg PO QAM 09/09/18 01/22/19 History omeprazole 40 mg PO QAM 09/09/18 01/22/19 History quetiapine 400 mg PO QPM 09/09/18 01/22/19 History ranitidine HCl 150 mg PO BID 09/09/18 01/22/19 History risperidone 2 mg PO BID 09/09/18 01/22/19 History trazodone 100 mg PO HS 09/09/18 01/22/19 History Preparation H 1 applic ME TID PRN 10/16/18 01/22/19 History loperamide [Imodium A-D] 2 mg PO UD PRN MDD 4 caplets/24 10/16/18 01/22/19 History Hours ipratropium bromide 0.5 mg NEB Q6R PRN #75 ml 10/19/18 01/22/19 Rx potassium chloride 10 meq PO BID 10/28/18 01/22/19 History alum-mag hydroxide-simeth [Rulox] 10 ml PO Q4H PRN 01/06/19 01/22/19 History diphenhydramine HCl [Banophen] 25 mg PO HS PRN 01/06/19 01/22/19 History psyllium seed (sugar) [Reguloid] 1 tsp PO DAILY PRN 01/06/19 01/22/19 History polyethylene glycol 3350 [Miralax] 17 gm PO DAILY PRN 01/22/19 01/22/19 History Past Med/Surg History Medical History History of esophageal cancer (Chronic) 11/20/18 EGD: Nodular ulcerated lesion. EUS: Mass lower third esophagus. Biopsies positive for adenocarcinoma. Paranoid schizophrenia (Chronic) COPD (chronic obstructive pulmonary disease) (Chronic) HTN (hypertension) (Chronic) GERD (gastroesophageal reflux disease) (Chronic) Tobacco abuse (Chronic) Kevin esophagus (Chronic) Surgical History History of esophagogastroduodenoscopy (EGD) (Chronic) History of skin graft (Chronic) as child History of bowel resection (Chronic) "for diverticulitis " in 2009 Family History Mother Stroke Thyroid disorder Father Heart attack Other Heart disease Social History Preferred Language: Colombian Communication Ability: Effective Beliefs That Will Affect Care: None Current Living Situation: Personal Care Facility Current Living Situation Comment: [facility] Feels Safe at Home: Yes Safety Concerns: Feels Safe At This Time Smoking Status: Current every day smoker Hx Alcohol Use: No Hx Substance Use: No Review of Systems All systems reviewed & are unremarkable except as noted in HPI & below Physical Exam Vital Signs (Past 24 Hours): Last Vital Signs Temp 36.9 C 01/22/19 11:41 Pulse 121 H 01/22/19 12:01 Resp 20 01/22/19 12:01 BP 86/54 L 01/22/19 12:00 Pulse Ox 94 01/22/19 12:01 Physical Exam: General: no acute distress, thin, chronic ill appearance Head: normocephalic, atraumatic Eyes: PERRL, EOM's intact, conjunctiva non-injected, anicteric ENT: normal inspection external ears, nose, mucous membranes dry, frequent tongue protrusion and licking lips Neck: supple, trachea midline Lungs: clear, no respiratory distress, no wheezing/rhonchi/rales CV: tachycardia at 120, regular rhythm, no pretibial edema Abd: normal BS, soft, mild tenderness to epigastric region Ext: no cyanosis, no calf tenderness Neuro: A&O x 3, no focal deficits noted Skin: warm, dry Results & Data Laboratory Results Short CBC 01/22/19 Range/Units 10:08 WBC 15.03 H (4.8-10.8) K/uL Hgb 7.2 L (14.0-18.0) g/dL Hct 20.8 L* (42-52) % Plt Count 362 (130-400) K/uL BMP 01/22/19 10:08 Sodium 135 L Potassium 4.5 Chloride 100 Carbon Dioxide 24 BUN 49 H Creatinine 1.00 Glucose 102 H Calcium 7.3 L Liver Function 01/22/19 Range/Units 10:08 Total Bilirubin 0.3 (0.2-1) mg/dl AST 9 L (15-37) U/L ALT 12 (12-78) U/L Alkaline Phosphatase 84 (45-117) U/L Albumin 2.4 L (3.4-5.0) gm/dl Diagnostic Findings CXR: IMPRESSION: Mild chronic interstitial thickening. No acute findings. ECG Rate (beats per minute): 121 Rhythm: sinus tachycardia Findings: + nonspecific-ST abn Supervising Physician Co-Signing Physician Notes Care coordinated with Portia AGUILAR. Agree with able note. Patient seen and examined. Please refer to her notes for full details. Vital signs reviewed. Physical exam: General exam: Alert and oriented. Not in acute distress. CVS: S1 and S2 heard, regular rate and rhythm, no murmurs. RS: Clear to auscultation, no wheezing or crackles. ABD: Soft, bowel sounds present, nontender, no distention. DELIVERY AND MAIL SORTER: Nonfocal. EXT: No edema, no erythema. Labs: Reviewed. 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 hypomagnesium will replace. Other diagnosis and plan of care as per Portia AGUILAR. Akira vera. .
--- NOTE | 2019-01-22 13:22 | Gastrointestinal Consultation ---
Date of Consultation January 22, 2019 Assessment & Plan (1) Coffee ground emesis: Pt is a 73 y/o male w hx of Kevin's and dx of esophageal adenocarcinoma in November, planned to undergo endoscopic mucosa dissection at [facility] [place]; currently presented to ED w coffee ground emesis and anemia. Suspect may be bleeding from esophageal mass area. - Please order PRBC transfusion, monitor H/H closely - Keep NPO; IVF hydration - Infectious workup per primary team - PPI bolus and gtt - No plans for repeat endoscopy at this time. (2) Esophageal cancer: (3) Kevin esophagus: Supervising Physician Co-Signing Physician Notes I have personally seen and examined the patient with SYDNIE France. Her note reflects my exam and findings. I agree with her impression and plan. Pt well know to me. 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 He has been getting treatment in [place]. No need for repeat endoscopy. Look for infection source. Luis Antonio Mcclure M.D. History of Present Illness Reason for Consultation: Coffee ground emesis Requesting Physician: Dr. Sly Weir Attending Physician: Dr. Luis Antonio Mcclure History of Present Illness Pt is a 73 y/o male resident of [facility] who presented to ED w n/v, coffee ground emesis. He has associated painful swallowing, and said hasn't been able to swallow much liquids since last night. He has hx of Kevin's esophagus, diagnosed with esohpageal adenocarcinoma at lower 3rd of esophagus in November via EGD/EUS. Initially planned to see GI Surgery for resection, however currently the plan is to have him undergo endoscopic submucosa resection by Dr. Morejon (GI [facility] – [place] Upon eval, he was noted to be hypotensive, and tachycardic: BP 70s/50s, HR 120s, O2 sat 90% on RA. Labs notable for leukocytosis WBC 15K anemia w Hgb 7s, baseline 11-12. INR 1.5, BUNCr 43/1. CXR showed mild interstitial thickening. He denies any abd pain. He did have a BM while in ED which he reports are formed and brown. Allergies Allergy/AdvReac Type Severity Reaction Status Date / Time buspirone Allergy Unknown Verified 01/22/19 10:35 clonazepam Allergy Unknown unknown Verified 01/22/19 10:35 clozapine Allergy Unknown Verified 01/22/19 10:35 Home Medications Home Medications Medication Instructions Recorded Confirmed Type Dairy Relief 9,000 unit PO QID 09/09/18 01/22/19 History acetaminophen [Acetaminophen Extra 1,000 mg PO Q8H PRN 09/09/18 01/22/19 History Strength] albuterol sulfate [Ventolin HFA] 2 puff INHALATION QID PRN 09/09/18 01/22/19 History aspirin [Aspirin Low Dose] 81 mg PO QAM 09/09/18 01/22/19 History benztropine 0.5 mg PO BID 09/09/18 01/22/19 History calcium carbonate [Calcium Antacid] 200 - 400 mg PO DAILY 09/09/18 01/22/19 History divalproex 250 mg PO BID 09/09/18 01/22/19 History guaifenesin [Mucinex] 600 mg PO BID PRN 09/09/18 01/22/19 History metoprolol succinate 12.5 mg PO QAM 09/09/18 01/22/19 History omeprazole 40 mg PO QAM 09/09/18 01/22/19 History quetiapine 400 mg PO QPM 09/09/18 01/22/19 History ranitidine HCl 150 mg PO BID 09/09/18 01/22/19 History risperidone 2 mg PO BID 09/09/18 01/22/19 History trazodone 100 mg PO HS 09/09/18 01/22/19 History Preparation H 1 applic AK TID PRN 10/16/18 01/22/19 History loperamide [Imodium A-D] 2 mg PO UD PRN MDD 4 caplets/24 10/16/18 01/22/19 History Hours ipratropium bromide 0.5 mg NEB Q6R PRN #75 ml 10/19/18 01/22/19 Rx potassium chloride 10 meq PO BID 10/28/18 01/22/19 History alum-mag hydroxide-simeth [Rulox] 10 ml PO Q4H PRN 01/06/19 01/22/19 History diphenhydramine HCl [Banophen] 25 mg PO HS PRN 01/06/19 01/22/19 History psyllium seed (sugar) [Reguloid] 1 tsp PO DAILY PRN 01/06/19 01/22/19 History polyethylene glycol 3350 [Miralax] 17 gm PO DAILY PRN 01/22/19 01/22/19 History Patient History Medical History History of esophageal cancer (Chronic) 11/20/18 EGD: Nodular ulcerated lesion. EUS: Mass lower third esophagus. Biopsies positive for adenocarcinoma. Paranoid schizophrenia (Chronic) COPD (chronic obstructive pulmonary disease) (Chronic) HTN (hypertension) (Chronic) GERD (gastroesophageal reflux disease) (Chronic) Tobacco abuse (Chronic) Kevin esophagus (Chronic) Surgical History History of esophagogastroduodenoscopy (EGD) (Chronic) History of skin graft (Chronic) as child History of bowel resection (Chronic) "for diverticulitis " in 2009 Family History Mother Stroke Thyroid disorder Father Heart attack Other Heart disease Social History Preferred Language: Tajik Beliefs That Will Affect Care: None Current Living Situation: Personal Care Facility Current Living Situation Comment: [facility] Feels Safe at Home: Yes Smoking Status: Current every day smoker Hx Alcohol Use: No Hx Substance Use: No Review of Systems Constitutional: as per Subjective / HPI Ear, Nose, Mouth, Throat: as per Subjective / HPI Respiratory: + cough; no dyspnea Cardiovascular: no chest pain Gastrointestinal: as per Subjective / HPI Physical Exam Vital Signs (Past 24 Hours): Last Vital Signs Temp 36.9 C 01/22/19 11:41 Pulse 121 H 01/22/19 12:01 Resp 20 01/22/19 12:01 BP 86/54 L 01/22/19 12:00 Pulse Ox 94 01/22/19 12:01 Constitutional: + ill appearing, + disheveled and cooperative Eyes: PERRL, conjunctivae normal, anicteric sclerae ENMT: dry oral mucosa. No thrush noted. Respiratory: + cough Auscultation: + diminished lung sounds Cardiovascular: RRR, no murmur, no edema Gastrointestinal (Abdomen): normal bowel sounds, soft, nontender, no hepatosplenomegaly Skin: no rashes, warm and dry no jaundice Neurologic: Motor/Sensory: no asterixis Psychiatric: Orientation: alert, oriented to person, oriented to place and cooperative; + not oriented to time Lymphatic: no lymphedema Results & Data Laboratory Results Laboratory Results - last 72 hr 01/22/19 01/22/19 01/22/19 10:08 10:08 10:08 WBC 15.03 H RBC 2.48 L Hgb 7.2 L POC Hgb Hct 20.8 L* POC Hct MCV 83.9 MCH 29.0 MCHC 34.6 RDW Std Deviation 47.5 H RDW Coeff of Migel 15.3 H Plt Count 362 MPV 9.3 Immature Gran % (Auto) 0.9 Neut % (Auto) 89.2 Lymph % (Auto) 5.5 Kaufman % (Auto) 4.3 Eos % (Auto) 0.0 Baso % (Auto) 0.1 Immature Gran # (Auto) 0.13 H Neut # (Auto) 13.41 H Lymph # (Auto) 0.83 L Kaufman # (Auto) 0.65 H Eos # (Auto) 0.00 Baso # (Auto) 0.01 Ovalocytes 1+ PT 14.9 H INR 1.5 H APTT 24.9 PTT Ratio 0.9 VBG pH VBG pCO2 VBG pO2 VBG HCO3 VBG O2 Saturation VBG Base Excess Barometric Pressure POC Sodium Sodium 135 L POC Potassium Potassium 4.5 POC Chloride Chloride 100 Carbon Dioxide 24 POC Total CO2 Anion Gap 11.0 POC Anion Gap POC BUN BUN 49 H Creatinine 1.00 POC Creatinine Est Cr Clr Drug Dosing 58.1 Est GFR ( Amer) 87.4 Est GFR (Non-Af Amer) 75.4 BUN/Creatinine Ratio 49.1 H Glucose 102 H POC Glucose (other) Lactate Calcium 7.3 L POC Ioniz Calcium Lesvia Magnesium 1.3 L Total Bilirubin 0.3 AST 9 L ALT 12 Alkaline Phosphatase 84 Total Protein 5.5 L Albumin 2.4 L Globulin 3.1 Albumin/Globulin Ratio 0.8 L Blood Type Blood Type Recheck Antibody Screen Crossmatch 01/22/19 01/22/19 01/22/19 10:08 10:08 10:08 WBC RBC Hgb POC Hgb Hct POC Hct MCV MCH MCHC RDW Std Deviation RDW Coeff of Migel Plt Count MPV Immature Gran % (Auto) Neut % (Auto) Lymph % (Auto) Kaufman % (Auto) Eos % (Auto) Baso % (Auto) Immature Gran # (Auto) Neut # (Auto) Lymph # (Auto) Kaufman # (Auto) Eos # (Auto) Baso # (Auto) Ovalocytes PT INR APTT PTT Ratio VBG pH 7.44 H VBG pCO2 35 L VBG pO2 31 VBG HCO3 23 VBG O2 Saturation < 60.0 VBG Base Excess -1.3 Barometric Pressure 733.6 POC Sodium Sodium POC Potassium Potassium POC Chloride Chloride Carbon Dioxide POC Total CO2 Anion Gap POC Anion Gap POC BUN BUN Creatinine POC Creatinine Est Cr Clr Drug Dosing Est GFR ( Amer) Est GFR (Non-Af Amer) BUN/Creatinine Ratio Glucose POC Glucose (other) Lactate 5.1 H* Calcium POC Ioniz Calcium Lesvia Magnesium Total Bilirubin AST ALT Alkaline Phosphatase Total Protein Albumin Globulin Albumin/Globulin Ratio Blood Type A Negative Blood Type Recheck Antibody Screen NEGATIVE Crossmatch See Detail 01/22/19 01/22/19 10:09 10:15 WBC RBC Hgb POC Hgb 7.1 L Hct POC Hct 21 L MCV MCH MCHC RDW Std Deviation RDW Coeff of Migel Plt Count MPV Immature Gran % (Auto) Neut % (Auto) Lymph % (Auto) Kaufman % (Auto) Eos % (Auto) Baso % (Auto) Immature Gran # (Auto) Neut # (Auto) Lymph # (Auto) Kaufman # (Auto) Eos # (Auto) Baso # (Auto) Ovalocytes PT INR APTT PTT Ratio VBG pH VBG pCO2 VBG pO2 VBG HCO3 VBG O2 Saturation VBG Base Excess Barometric Pressure POC Sodium 132 L Sodium POC Potassium 4.4 Potassium POC Chloride 94 L Chloride Carbon Dioxide POC Total CO2 23 L Anion Gap POC Anion Gap 20.0 POC BUN 43 H BUN Creatinine POC Creatinine 1.0 Est Cr Clr Drug Dosing Est GFR ( Amer) Est GFR (Non-Af Amer) BUN/Creatinine Ratio Glucose POC Glucose (other) 101 H Lactate Calcium POC Ioniz Calcium Lesvia 1.02 L Magnesium Total Bilirubin AST ALT Alkaline Phosphatase Total Protein Albumin Globulin Albumin/Globulin Ratio Blood Type Blood Type Recheck A Negative Antibody Screen Crossmatch
[2019-01-22] MEDS ORDERED: LEVALBUTEROL HCL 0.63 MG/3 ML NEB NEB PRN (13:28)
[2019-01-22] MEDS ORDERED: IPRATROPIUM BROMIDE NEB SOLN 0.02% 2.5 ML VIAL INH PRN (13:28)
[2019-01-22] MEDS ORDERED: ICU PROTOCOL FOR HYPERGLYCEMIA PRN (13:28)
[2019-01-22] MEDS ORDERED: XOPENEX/ATROVENT 0.63mg/0.5MG NEB COMBO NEB PRN (13:28)
[2019-01-22 13:46] LABS: Appearance Urine Clear (Clear); Bilirubin Urine Negative (Negative); Blood Urine Negative (Negative); Color Urine Yellow; Glucose Urine UA Negative (Negative); Ketones Urine 1+ (Negative); Leukocyte Esterase Urine Negative (Negative); Nitrite Urine Negative (Negative); Protein Urine Negative (Negative); Urobilinogen Urine Negative (Negative); pH Urine 7.5 (4.5-7.5)
--- NOTE | 2019-01-22 14:09 | Pharmacy Report ---
Pharmacy Abx Initial Consult - Date of Service January 22, 2019 - Pharmacy Dosing Scope Date of Consult: 01/22 Consultation requested by: Portia Schmidt PA-C Pharmacy is consulted to initiate vancomycin/zosyn IV/PO dosing therapy, order appropriate labs and adjust drug dose/frequency. - Subjective The patient is a 73 year old M admitted on 01/22/19 12:14. - Objective Height: 5 ft 6 in Weight: 60.6 kg Vital Signs (Past 12hrs): Vital Signs Temp Pulse Pulse Resp BP BP Pulse Ox 01/22/19 14:03 01/22/19 13:31 130 H 18 127/89 99 01/22/19 13:30 130 H 130 H 20 127/89 89 L 01/22/19 13:15 37.6 C H 121 H 18 127/94 92 01/22/19 13:13 125 H 127/94 96 01/22/19 13:12 124 H 01/22/19 12:50 123 H 26 H 99/71 L 01/22/19 12:45 125 H 20 01/22/19 12:41 124 H 23 104/46 L 01/22/19 12:30 120 H 16 96/68 L 01/22/19 12:20 130 H 17 95 01/22/19 12:15 128 H 26 H 96 01/22/19 12:10 122 H 19 80/52 L 97 01/22/19 12:01 121 H 20 94 01/22/19 12:00 123 H 21 86/54 L 95 01/22/19 11:57 37.6 C H 125 H 21 107/77 92 01/22/19 11:51 128 H 22 64/51 L 92 01/22/19 11:45 125 H 18 96 01/22/19 11:42 123 H 17 82/65 L 95 01/22/19 11:41 36.9 C 128 H 17 82/65 L 95 01/22/19 11:30 126 H 17 82/60 L 01/22/19 11:22 129 H 22 01/22/19 11:21 123 H 22 98/60 L 01/22/19 11:20 135 H 20 01/22/19 11:10 124 H 17 99/60 L 94 01/22/19 11:01 111 H 23 97 01/22/19 11:00 114 H 17 80/54 L 97 01/22/19 10:51 114 H 32 H 81/51 L 98 01/22/19 10:44 125 H 21 01/22/19 10:30 114 H 20 72/49 L 01/22/19 10:24 120 H 22 79/53 L 01/22/19 10:20 119 H 14 01/22/19 10:11 130 H 24 62/39 L 01/22/19 10:06 123 H 21 87/42 L 01/22/19 10:01 127 H 19 63/51 L 01/22/19 10:00 128 H 20 01/22/19 09:50 125 H 23 96/66 L 01/22/19 09:40 122 H 22 82/52 L 01/22/19 09:30 118 H 17 84/59 L 01/22/19 09:28 36.7 C 120 H 20 71/56 L 90 01/22/19 09:23 115 H 14 68/48 L 01/22/19 09:20 119 H 14 91 01/22/19 09:19 124 H 20 71/56 L 92 01/22/19 09:18 122 H 18 Pulse Ox 01/22/19 14:03 95 01/22/19 13:31 01/22/19 13:30 01/22/19 13:15 01/22/19 13:13 01/22/19 13:12 01/22/19 12:50 01/22/19 12:45 01/22/19 12:41 01/22/19 12:30 01/22/19 12:20 01/22/19 12:15 01/22/19 12:10 01/22/19 12:01 01/22/19 12:00 01/22/19 11:57 01/22/19 11:51 01/22/19 11:45 01/22/19 11:42 01/22/19 11:41 01/22/19 11:30 01/22/19 11:22 01/22/19 11:21 01/22/19 11:20 01/22/19 11:10 01/22/19 11:01 01/22/19 11:00 01/22/19 10:51 01/22/19 10:44 01/22/19 10:30 01/22/19 10:24 01/22/19 10:20 01/22/19 10:11 01/22/19 10:06 01/22/19 10:01 01/22/19 10:00 01/22/19 09:50 01/22/19 09:40 01/22/19 09:30 01/22/19 09:28 01/22/19 09:23 01/22/19 09:20 01/22/19 09:19 01/22/19 09:18 Lab Results (24hrs): Laboratory Tests (24 Hours) 01/22/19 01/22/19 10:08 10:08 WBC 15.03 H Neut # (Auto) 13.41 H Creatinine 1.00 Est Cr Clr Drug Dosing 58.1 Micro Results: 01/22/19 13:35 Urine Culture - Pending Urine,Clean Catch 01/22/19 10:08 Blood Culture - Pending Blood 01/22/19 10:22 Blood Culture - Pending Blood - Risk Factors for Resistance * Resident in a fdc or extended-care facility - Assessment & Plan Assessment 73 year old M presented to ED from [facility] with coffee-ground emesis, hypotensive. 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 Protonix started for GI Bleed. Elevated WBC 15, afebrile, tachycardia, lactate 5.1. Vancomycin/zosyn started empirically. Urine and blood cultures pending. Plan Vancomycin IV * Estimated PK Parameters: Vd 0.7 L/kg, Khang 0.05 hr-1, t1/2 13 hr * Loading dose: 1250 mg (20 mg/kg) * Maintenance dose: 1000 mg IV (16 mg/kg) every 16 hours * Goal trough level 15-20 mcg/mL * Trough level currently not currently ordered will reassess in AM Piperacillin/tazobactam * 4.5 g bolus administered over 30 minutes, then 4.5 g IV extended infusion every 8 hours for CrCl greater than 20 mL/min OR every 12 hours for CrCl 20 mL/min or less and dialysis. * Aggressive dosing selected due to critically ill status Pharmacy will continue to follow and will adjust dose/frequency as necessary. Thank you.
[2019-01-22] MEDS: SODIUM CHLORIDE 0.9% 1000ML 1,000 ML IV SCH ×2 (14:32→21:28)
[2019-01-22] MEDS: MAGNESIUM SULFATE / D5W 1 GM/100 ML BAG IV SCH ×2 (14:32→15:54)
[2019-01-22] MEDS ORDERED: PIPERACILLIN/TAZOBACTAM 4.5 GM in DEXTROSE 5% 100 ML IV SCH (16:00)
--- NOTE | 2019-01-22 16:28 | Emergency Department Note ---
Entered by Librado Dominguez acting as a scribe for Sly Weir MD History of Present Illness General Chief complaint: Hypotension Time Seen by Provider: 01/22/19 09:32 Source: EMS Mode of arrival: EMS History of Present Illness Provider complaint: Hypotension Onset (ago): minute(s) Location: chest Severity: severe Pain Consistency: + constant Quality: + other (hypotension ) Associated symptoms: + cough Treatments prior to arrival: other (500mL of fluid ) The patient is a 70 year male w/PMhx paranoid schizophrenia, COPD, HTN, GERD, and esophageal cancer who presents to the ED w/CC of hypotension. Patient was brought via EMS. The patient resides in [facility]. The people over there found him walking in hallway disoriented. After getting him settled [facility] staff called EMS for stroke like symptoms. Upon EMS arrival in [facility], EMS noted in bed systolic pressure, in the 80s. EMS administered [address] into the ER. Upon arrival patient states he is in severe constant pain. Patient states he is having cough symptoms as well. Home Medications Home Medications Medication Instructions Recorded Confirmed Type Dairy Relief 9,000 unit PO QID 09/09/18 01/22/19 History acetaminophen [Acetaminophen Extra 1,000 mg PO Q8H PRN 09/09/18 01/22/19 History Strength] albuterol sulfate [Ventolin HFA] 2 puff INHALATION QID PRN 09/09/18 01/22/19 History aspirin [Aspirin Low Dose] 81 mg PO QAM 09/09/18 01/22/19 History benztropine 0.5 mg PO BID 09/09/18 01/22/19 History calcium carbonate [Calcium Antacid] 200 - 400 mg PO DAILY 09/09/18 01/22/19 History divalproex 250 mg PO BID 09/09/18 01/22/19 History guaifenesin [Mucinex] 600 mg PO BID PRN 09/09/18 01/22/19 History metoprolol succinate 12.5 mg PO QAM 09/09/18 01/22/19 History omeprazole 40 mg PO QAM 09/09/18 01/22/19 History quetiapine 400 mg PO QPM 09/09/18 01/22/19 History ranitidine HCl 150 mg PO BID 09/09/18 01/22/19 History risperidone 2 mg PO BID 09/09/18 01/22/19 History trazodone 100 mg PO HS 09/09/18 01/22/19 History Preparation H 1 applic OR TID PRN 10/16/18 01/22/19 History loperamide [Imodium A-D] 2 mg PO UD PRN MDD 4 caplets/24 10/16/18 01/22/19 History Hours ipratropium bromide 0.5 mg NEB Q6R PRN #75 ml 10/19/18 01/22/19 Rx potassium chloride 10 meq PO BID 10/28/18 01/22/19 History alum-mag hydroxide-simeth [Rulox] 10 ml PO Q4H PRN 01/06/19 01/22/19 History diphenhydramine HCl [Banophen] 25 mg PO HS PRN 01/06/19 01/22/19 History psyllium seed (sugar) [Reguloid] 1 tsp PO DAILY PRN 01/06/19 01/22/19 History polyethylene glycol 3350 [Miralax] 17 gm PO DAILY PRN 01/22/19 01/22/19 History Allergies Allergy/AdvReac Type Severity Reaction Status Date / Time buspirone Allergy Unknown Verified 01/22/19 10:35 clonazepam Allergy Unknown unknown Verified 01/22/19 10:35 clozapine Allergy Unknown Verified 01/22/19 10:35 Past Med/Surg History Medical History History of esophageal cancer (Chronic) 11/20/18 EGD: Nodular ulcerated lesion. EUS: Mass lower third esophagus. Biopsies positive for adenocarcinoma. Paranoid schizophrenia (Chronic) COPD (chronic obstructive pulmonary disease) (Chronic) HTN (hypertension) (Chronic) GERD (gastroesophageal reflux disease) (Chronic) Tobacco abuse (Chronic) Kevin esophagus (Chronic) Surgical History History of esophagogastroduodenoscopy (EGD) (Chronic) History of skin graft (Chronic) as child History of bowel resection (Chronic) "for diverticulitis " in 2009 Family History Mother Stroke Thyroid disorder Father Heart attack Other Heart disease Social History Preferred Language: Estonian Communication Ability: Effective Beliefs That Will Affect Care: None Current Living Situation: Personal Care Facility Current Living Situation Comment: [facility] Feels Safe at Home: Yes Safety Concerns: Feels Safe At This Time Smoking Status: Current every day smoker Hx Alcohol Use: No Hx Substance Use: No Review of Systems See HPI for pertinent positives & negatives. and A total of 10 systems reviewed and were otherwise negative Physical Exam Vital Signs Vital Signs - 24 hr 01/22/19 09:18 01/22/19 09:19 01/22/19 09:20 Temperature Temperature Source Sepsis Recent Fever Within 48 Hours Sepsis Action Taken by Nursing Pulse Rate 122 H 124 H 119 H Pulse Rate [Apical] Pulse Rate from SpO2 Sensor 122 H 124 H 119 H Pulse Rhythm Pulse Strength Respiratory Rate 18 20 14 Respiratory Effort / Characteristics Respiratory Depth Respiratory Pattern Blood Pressure 71/56 L Blood Pressure [Right Arm] Blood Pressure Mean 61 Blood Pressure Mean [Right Arm] Blood Pressure Position Pulse Oximetry 92 91 Pulse Oximetry [Right Index Finger] Oxygen Delivery Method Oxygen Delivery Method [Right Index Finger] Oxygen Flow Rate 01/22/19 09:23 01/22/19 09:28 01/22/19 09:30 Temperature 36.7 C Temperature Source Oral Sepsis Recent Fever Within 48 Hours No Sepsis Action Taken by Nursing No Action Required Pulse Rate 115 H 120 H 118 H Pulse Rate [Apical] Pulse Rate from SpO2 Sensor Pulse Rhythm Regular Pulse Strength Normal Respiratory Rate 14 20 17 Respiratory Effort / Characteristics Non-Labored Spontaneous Respiratory Depth Normal Respiratory Pattern Regular Blood Pressure 68/48 L 71/56 L 84/59 L Blood Pressure [Right Arm] Blood Pressure Mean 54 61 67 Blood Pressure Mean [Right Arm] Blood Pressure Position Lying Pulse Oximetry 90 Pulse Oximetry [Right Index Finger] Oxygen Delivery Method Room Air Oxygen Delivery Method [Right Index Finger] Oxygen Flow Rate 01/22/19 09:40 01/22/19 09:49 01/22/19 09:50 Temperature Temperature Source Sepsis Recent Fever Within 48 Hours Sepsis Action Taken by Nursing Pulse Rate 122 H 125 H Pulse Rate [Apical] Pulse Rate from SpO2 Sensor Pulse Rhythm Pulse Strength Respiratory Rate 22 23 Respiratory Effort / Characteristics Respiratory Depth Respiratory Pattern Blood Pressure 82/52 L 96/66 L Blood Pressure [Right Arm] Blood Pressure Mean 62 76 Blood Pressure Mean [Right Arm] Blood Pressure Position Pulse Oximetry Pulse Oximetry [Right Index Finger] Oxygen Delivery Method Nasal Cannula Oxygen Delivery Method [Right Index Finger] Oxygen Flow Rate 2 01/22/19 10:00 01/22/19 10:01 01/22/19 10:06 Temperature Temperature Source Sepsis Recent Fever Within 48 Hours Sepsis Action Taken by Nursing Pulse Rate 128 H 127 H 123 H Pulse Rate [Apical] Pulse Rate from SpO2 Sensor Pulse Rhythm Pulse Strength Respiratory Rate 20 19 21 Respiratory Effort / Characteristics Respiratory Depth Respiratory Pattern Blood Pressure 63/51 L 87/42 L Blood Pressure [Right Arm] Blood Pressure Mean 55 57 Blood Pressure Mean [Right Arm] Blood Pressure Position Pulse Oximetry Pulse Oximetry [Right Index Finger] Oxygen Delivery Method Oxygen Delivery Method [Right Index Finger] Oxygen Flow Rate 01/22/19 10:11 01/22/19 10:20 01/22/19 10:24 Temperature Temperature Source Sepsis Recent Fever Within 48 Hours Sepsis Action Taken by Nursing Pulse Rate 130 H 119 H 120 H Pulse Rate [Apical] Pulse Rate from SpO2 Sensor Pulse Rhythm Pulse Strength Respiratory Rate 24 14 22 Respiratory Effort / Characteristics Respiratory Depth Respiratory Pattern Blood Pressure 62/39 L 79/53 L Blood Pressure [Right Arm] Blood Pressure Mean 46 61 Blood Pressure Mean [Right Arm] Blood Pressure Position Pulse Oximetry Pulse Oximetry [Right Index Finger] Oxygen Delivery Method Oxygen Delivery Method [Right Index Finger] Oxygen Flow Rate 01/22/19 10:30 01/22/19 10:44 01/22/19 10:51 Temperature Temperature Source Sepsis Recent Fever Within 48 Hours Sepsis Action Taken by Nursing Pulse Rate 114 H 125 H 114 H Pulse Rate [Apical] Pulse Rate from SpO2 Sensor 115 H Pulse Rhythm Pulse Strength Respiratory Rate 20 21 32 H Respiratory Effort / Characteristics Respiratory Depth Respiratory Pattern Blood Pressure 72/49 L 81/51 L Blood Pressure [Right Arm] Blood Pressure Mean 56 61 Blood Pressure Mean [Right Arm] Blood Pressure Position Pulse Oximetry 98 Pulse Oximetry [Right Index Finger] Oxygen Delivery Method Oxygen Delivery Method [Right Index Finger] Oxygen Flow Rate 01/22/19 11:00 01/22/19 11:01 01/22/19 11:10 Temperature Temperature Source Sepsis Recent Fever Within 48 Hours Sepsis Action Taken by Nursing Pulse Rate 114 H 111 H 124 H Pulse Rate [Apical] Pulse Rate from SpO2 Sensor 231 H 227 H 123 H Pulse Rhythm Pulse Strength Respiratory Rate 17 23 17 Respiratory Effort / Characteristics Respiratory Depth Respiratory Pattern Blood Pressure 80/54 L 99/60 L Blood Pressure [Right Arm] Blood Pressure Mean 62 73 Blood Pressure Mean [Right Arm] Blood Pressure Position Pulse Oximetry 97 97 94 Pulse Oximetry [Right Index Finger] Oxygen Delivery Method Oxygen Delivery Method [Right Index Finger] Oxygen Flow Rate 01/22/19 11:20 01/22/19 11:21 01/22/19 11:22 Temperature Temperature Source Sepsis Recent Fever Within 48 Hours Sepsis Action Taken by Nursing Pulse Rate 135 H 123 H 129 H Pulse Rate [Apical] Pulse Rate from SpO2 Sensor Pulse Rhythm Pulse Strength Respiratory Rate 20 22 22 Respiratory Effort / Characteristics Respiratory Depth Respiratory Pattern Blood Pressure 98/60 L Blood Pressure [Right Arm] Blood Pressure Mean 72 Blood Pressure Mean [Right Arm] Blood Pressure Position Pulse Oximetry Pulse Oximetry [Right Index Finger] Oxygen Delivery Method Oxygen Delivery Method [Right Index Finger] Oxygen Flow Rate 01/22/19 11:30 01/22/19 11:41 01/22/19 11:42 Temperature 36.9 C Temperature Source Oral Sepsis Recent Fever Within 48 Hours Sepsis Action Taken by Nursing Pulse Rate 126 H 128 H 123 H Pulse Rate [Apical] Pulse Rate from SpO2 Sensor 124 H Pulse Rhythm Pulse Strength Respiratory Rate 17 17 17 Respiratory Effort / Characteristics Respiratory Depth Respiratory Pattern Blood Pressure 82/60 L 82/65 L 82/65 L Blood Pressure [Right Arm] Blood Pressure Mean 67 70 70 Blood Pressure Mean [Right Arm] Blood Pressure Position Semi-fowlers Pulse Oximetry 95 95 Pulse Oximetry [Right Index Finger] Oxygen Delivery Method Oxygen Delivery Method [Right Index Finger] Oxygen Flow Rate 01/22/19 11:45 01/22/19 11:51 01/22/19 11:57 Temperature 37.6 C H Temperature Source Temporal Artery Scan Sepsis Recent Fever Within 48 Hours Sepsis Action Taken by Nursing Pulse Rate 125 H 128 H 125 H Pulse Rate [Apical] Pulse Rate from SpO2 Sensor 125 H 130 H Pulse Rhythm Regular Pulse Strength Normal Respiratory Rate 18 22 21 Respiratory Effort / Characteristics Respiratory Depth Respiratory Pattern Blood Pressure 64/51 L 107/77 Blood Pressure [Right Arm] Blood Pressure Mean 55 87 Blood Pressure Mean [Right Arm] Blood Pressure Position Lying Pulse Oximetry 96 92 92 Pulse Oximetry [Right Index Finger] Oxygen Delivery Method Oxygen Delivery Method [Right Index Finger] Oxygen Flow Rate 01/22/19 12:00 01/22/19 12:01 01/22/19 12:10 Temperature Temperature Source Sepsis Recent Fever Within 48 Hours Sepsis Action Taken by Nursing Pulse Rate 123 H 121 H 122 H Pulse Rate [Apical] Pulse Rate from SpO2 Sensor 120 H 122 H 122 H Pulse Rhythm Pulse Strength Respiratory Rate 21 20 19 Respiratory Effort / Characteristics Respiratory Depth Respiratory Pattern Blood Pressure 86/54 L 80/52 L Blood Pressure [Right Arm] Blood Pressure Mean 64 61 Blood Pressure Mean [Right Arm] Blood Pressure Position Pulse Oximetry 95 94 97 Pulse Oximetry [Right Index Finger] Oxygen Delivery Method Room Air Oxygen Delivery Method [Right Index Finger] Oxygen Flow Rate 01/22/19 12:15 01/22/19 12:20 01/22/19 12:30 Temperature Temperature Source Sepsis Recent Fever Within 48 Hours Sepsis Action Taken by Nursing Pulse Rate 128 H 130 H 120 H Pulse Rate [Apical] Pulse Rate from SpO2 Sensor 128 H 131 H Pulse Rhythm Pulse Strength Respiratory Rate 26 H 17 16 Respiratory Effort / Characteristics Respiratory Depth Respiratory Pattern Blood Pressure 96/68 L Blood Pressure [Right Arm] Blood Pressure Mean 45 77 Blood Pressure Mean [Right Arm] Blood Pressure Position Pulse Oximetry 96 95 Pulse Oximetry [Right Index Finger] Oxygen Delivery Method Oxygen Delivery Method [Right Index Finger] Oxygen Flow Rate 01/22/19 12:41 01/22/19 12:45 01/22/19 12:50 Temperature Temperature Source Sepsis Recent Fever Within 48 Hours Sepsis Action Taken by Nursing Pulse Rate 124 H 125 H 123 H Pulse Rate [Apical] Pulse Rate from SpO2 Sensor Pulse Rhythm Pulse Strength Respiratory Rate 23 20 26 H Respiratory Effort / Characteristics Respiratory Depth Respiratory Pattern Blood Pressure 104/46 L 99/71 L Blood Pressure [Right Arm] Blood Pressure Mean 65 80 Blood Pressure Mean [Right Arm] Blood Pressure Position Pulse Oximetry Pulse Oximetry [Right Index Finger] Oxygen Delivery Method Oxygen Delivery Method [Right Index Finger] Oxygen Flow Rate 01/22/19 13:12 01/22/19 13:13 01/22/19 13:15 Temperature 37.6 C H Temperature Source Temporal Artery Scan Sepsis Recent Fever Within 48 Hours Sepsis Action Taken by Nursing Pulse Rate 124 H 125 H 121 H Pulse Rate [Apical] Pulse Rate from SpO2 Sensor 125 H 120 H Pulse Rhythm Pulse Strength Respiratory Rate 18 Respiratory Effort / Characteristics Respiratory Depth Respiratory Pattern Blood Pressure 127/94 Blood Pressure [Right Arm] 127/94 Blood Pressure Mean 105 Blood Pressure Mean [Right Arm] 105 Blood Pressure Position Pulse Oximetry 96 92 Pulse Oximetry [Right Index Finger] Oxygen Delivery Method Oxygen Delivery Method [Right Index Finger] Oxygen Flow Rate 01/22/19 13:30 01/22/19 13:31 01/22/19 14:03 Temperature Temperature Source Sepsis Recent Fever Within 48 Hours Sepsis Action Taken by Nursing Pulse Rate 130 H 130 H Pulse Rate [Apical] 130 H Pulse Rate from SpO2 Sensor 131 H 129 H Pulse Rhythm Pulse Strength Respiratory Rate 20 18 Respiratory Effort / Characteristics Non-Labored Spontaneous Respiratory Depth Normal Respiratory Pattern Regular Blood Pressure 127/89 Blood Pressure [Right Arm] 127/89 Blood Pressure Mean 101 Blood Pressure Mean [Right Arm] 101 Blood Pressure Position Pulse Oximetry 89 L 99 Pulse Oximetry [Right Index Finger] 95 Oxygen Delivery Method Room Air Oxygen Delivery Method [Right Index Finger] Room Air Oxygen Flow Rate 01/22/19 14:23 01/22/19 14:37 01/22/19 14:45 Temperature 37.7 C H 37.8 C H Temperature Source Temporal Artery Scan Temporal Artery Scan Sepsis Recent Fever Within 48 Hours Sepsis Action Taken by Nursing Pulse Rate 120 H 119 H Pulse Rate [Apical] Pulse Rate from SpO2 Sensor Pulse Rhythm Pulse Strength Respiratory Rate 18 18 Respiratory Effort / Characteristics Respiratory Depth Respiratory Pattern Blood Pressure 107/82 109/75 Blood Pressure [Right Arm] Blood Pressure Mean 90 86 Blood Pressure Mean [Right Arm] Blood Pressure Position Pulse Oximetry 97 97 97 Pulse Oximetry [Right Index Finger] Oxygen Delivery Method Room Air Oxygen Delivery Method [Right Index Finger] Oxygen Flow Rate 01/22/19 15:00 01/22/19 15:15 01/22/19 15:30 Temperature 37.8 C H Temperature Source Temporal Artery Scan Sepsis Recent Fever Within 48 Hours Sepsis Action Taken by Nursing Pulse Rate 119 H 120 H 118 H Pulse Rate [Apical] Pulse Rate from SpO2 Sensor Pulse Rhythm Pulse Strength Respiratory Rate 18 20 18 Respiratory Effort / Characteristics Respiratory Depth Respiratory Pattern Blood Pressure 118/76 117/85 97/77 L Blood Pressure [Right Arm] Blood Pressure Mean 90 95 83 Blood Pressure Mean [Right Arm] Blood Pressure Position Lying Lying Lying Pulse Oximetry 94 97 96 Pulse Oximetry [Right Index Finger] Oxygen Delivery Method Oxygen Delivery Method [Right Index Finger] Oxygen Flow Rate 01/22/19 15:45 Temperature 37.3 C Temperature Source Oral Sepsis Recent Fever Within 48 Hours Sepsis Action Taken by Nursing Pulse Rate 110 H Pulse Rate [Apical] Pulse Rate from SpO2 Sensor Pulse Rhythm Pulse Strength Respiratory Rate 16 Respiratory Effort / Characteristics Respiratory Depth Respiratory Pattern Blood Pressure 120/77 Blood Pressure [Right Arm] Blood Pressure Mean 91 Blood Pressure Mean [Right Arm] Blood Pressure Position Lying Pulse Oximetry 95 Pulse Oximetry [Right Index Finger] Oxygen Delivery Method Oxygen Delivery Method [Right Index Finger] Oxygen Flow Rate GENERAL: Wearing Glasses, Thin in appearance and nasal cannula in place EYE EXAM: Normal conjunctiva. PERRL, no anisocoria and EOM's grossly intact w/o pain. OROPHARYNX: Dry MM. Edentulous. NECK: Supple, no nuchal rigidity, no adenopathy, non-tender. No signs of menin gismus. LUNGS: Clear to auscultation. Normal chest wall mechanics. HEART: NSR, no MRG. ABDOMEN: Abdomen soft, normo-active bowel sounds, no masses, no rebound or guarding. Epigastric discomfort . BACK: No CVA TTP. SKIN: No rashes and no bruising. UPPER EXTREMITIES: Upper extremities are grossly normal. LOWER EXTREMITIES: No pitting edema. No calf pain. NEURO EXAM: A and O x3. GCS 15. Moves all 4 extremities on command w/o issue. Course 0940: Past medical records reviewed. The patient was evaluated in room A12B, and a complete history and physical examination were performed. 1024: I discussed the case with Portia Schmidt PA-C, [facility]. She states to admit the patient under her care. I consented the patient for blood transfusion. Patient verbalized agreement to being admitted. Consultations Consultation #1: Portia Schmidt PA-C Time: 10:49 Administered Medications Pantoprazole Sodium 40 mg/ (Dextrose) 100 mls @ 20 mls/hr IV Q5H [facility] Stop: 02/21/19 09:59 Last Admin: 01/22/19 10:45 Dose: 20 mls/hr Documented by: [id number] Sodium Chloride (Nss 1000ml) 1,000 mls @ 125 mls/hr IV .Q8H [facility] Stop: 02/21/19 13:41 Last Admin: 01/22/19 14:32 Dose: 125 mls/hr Documented by: [id number] Piperacillin Sod/Tazobactam (Sod 4.5 gm/ Dextrose) 120 mls @ 30 mls/hr IV Q8H [facility]; Protocol Stop: 01/24/19 15:59 Last Admin: 01/22/19 15:54 Dose: 30 mls/hr Documented by: [id number] Discontinued Medications Sodium Chloride (Nss 1000ml) 1,000 mls @ 999 mls/hr IV .Q1H1M [facility] Stop: 01/22/19 10:45 Last Infusion: 01/22/19 12:01 Dose: 0 mls/hr Documented by: [id number] Admin: 01/22/19 10:25 Dose: 999 mls/hr Documented by: [id number] Pantoprazole Sodium (Protonix Bolus/Drip) 0 mls @ 1 mls/hr IV ONE STA Stop: 01/22/19 09:51 Last Admin: 01/22/19 10:45 Dose: Not Given Documented by: [id number] Pantoprazole Sodium 80 mg/ (Dextrose) 120 mls @ 400 mls/hr IV NOW ONE Stop: 01/22/19 10:07 Last Infusion: 01/22/19 10:43 Dose: 0 mls/hr Documented by: [id number] Admin: 01/22/19 10:25 Dose: 400 mls/hr Documented by: [id number] Piperacillin Sod/Tazobactam Sod (Zosyn) 4.5 gm in 120 mls @ 240 mls/hr IV NOW ONE Stop: 01/22/19 11:31 Last Infusion: 01/22/19 12:01 Dose: 0 mls/hr Documented by: [id number] Admin: 01/22/19 11:26 Dose: 240 mls/hr Documented by: [id number] Vancomycin HCl 1,250 mg/ (Sodium Chloride) 525 mls @ 200 mls/hr IV NOW ONE Stop: 01/22/19 13:39 Last Infusion: 01/22/19 15:14 Dose: 0 mls/hr Documented by: [id number] Admin: 01/22/19 12:31 Dose: 200 mls/hr Documented by: [id number] Magnesium Sulfate/Dextrose (Magnesium Sulfate / D5w) 1 gm in 100 mls @ 100 mls/hr IV Q1H [facility] Stop: 01/22/19 15:44 Last Admin: 01/22/19 15:54 Dose: 100 mls/hr Documented by: [id number] Infusion: 01/22/19 15:40 Dose: 0 mls/hr Documented by: [id number] Admin: 01/22/19 14:32 Dose: 100 mls/hr Documented by: [id number] Ondansetron HCl (Zofran) Confirm Administered Dose 4 mg .ROUTE .STK-MED ONE Stop: 01/22/19 10:31 Last Admin: 01/22/19 10:45 Dose: 4 mg Documented by: [id number] Medical Decision Making Differential Diagnosis Differential diagnosis: Etiologies such as gastroenteritis, food borne illness, infections, appendicitis, diverticulitis, inflammatory bowel disease, obstruction, GI bleed, biliary pathology, cardiac process, intracranial process, as well as others were entertained. Medical Records Attestation: I reviewed the patient's medical records. Home Medications Current Medication List: was personally reviewed by me Laboratory Data Attestation: I reviewed the patient's lab results. Result diagrams: 01/22/19 10:08 01/22/19 10:08 Lab Results 01/22/19 01/22/19 01/22/19 Range/Units 10:08 10:08 10:08 WBC 15.03 H (4.8-10.8) K/uL RBC 2.48 L (4.7-6.1) M/uL Hgb 7.2 L (14.0-18.0) g/dL POC Hgb (14.0-18.0) g/dl Hct 20.8 L* (42-52) % POC Hct (42-52) % MCV 83.9 (80-100) fL MCH 29.0 (25-34) pg MCHC 34.6 (32-36) g/dL RDW Std Deviation 47.5 H (36.4-46.3) fL RDW Coeff of Migel 15.3 H (11.5-14.5) % Plt Count 362 (130-400) K/uL MPV 9.3 (7.4-10.4) fL Immature Gran % (Auto) 0.9 % Neut % (Auto) 89.2 % Lymph % (Auto) 5.5 % [place] % (Auto) 4.3 % Eos % (Auto) 0.0 % Baso % (Auto) 0.1 % Immature Gran # (Auto) 0.13 H (0.00-0.02) K/uL Neut # (Auto) 13.41 H (1.4-6.5) K/uL Lymph # (Auto) 0.83 L (1.2-3.4) K/uL [place] # (Auto) 0.65 H (0.11-0.59) K/uL Eos # (Auto) 0.00 (0-0.5) K/uL Baso # (Auto) 0.01 (0-0.2) K/uL Ovalocytes 1+ PT 14.9 H (9.0-12.0) Seconds INR 1.5 H (0.9-1.1) APTT 24.9 (21.0-31.0) Seconds PTT Ratio 0.9 VBG pH (7.36-7.41) VBG pCO2 (38-50) mmHg VBG pO2 mmHg VBG HCO3 mmol/L VBG O2 Saturation % VBG Base Excess mEq/L Barometric Pressure mm/Hg POC Sodium (135-144) mEq/L Sodium 135 L (136-145) mmol/L POC Potassium (3.3-5.0) mEq/L Potassium 4.5 (3.5-5.1) mmol/L POC Chloride (101-112) mEq/L Chloride 100 (98-107) mmol/L Carbon Dioxide 24 (21-32) mmol/L POC Total CO2 (24-31) mEq/l Anion Gap 11.0 (3-11) POC Anion Gap (16-25) mmol/L POC BUN (7-18) mg/dl BUN 49 H (7-18) mg/dl Creatinine 1.00 (0.6-1.4) mg/dl POC Creatinine (0.6-1.3) mg/dl Est Cr Clr Drug Dosing 58.1 ml/min Est GFR ( Amer) 87.4 Est GFR (Non-Af Amer) 75.4 BUN/Creatinine Ratio 49.1 H (10-20) Glucose 102 H (70-99) mg/dl POC Glucose (other) (70-99) mg/dl Lactate (0.4-2.0) mmol/L Calcium 7.3 L (8.5-10.1) mg/dl POC Ioniz Calcium Lesvia (1.12-1.32) mmol/l Phosphorus (2.5-4.9) mg/dl Magnesium 1.3 L (1.8-2.4) mg/dl Total Bilirubin 0.3 (0.2-1) mg/dl AST 9 L (15-37) U/L ALT 12 (12-78) U/L Alkaline Phosphatase 84 (45-117) U/L Total Protein 5.5 L (6.4-8.2) gm/dl Albumin 2.4 L (3.4-5.0) gm/dl Globulin 3.1 (2.5-4.0) gm/dl Albumin/Globulin Ratio 0.8 L (0.9-2) Urine Color Urine Appearance (Clear) Urine pH (4.5-7.5) Ur Specific [place] (1.000-1.030) Urine Protein (Negative) Urine Glucose (UA) (Negative) Urine Ketones (Negative) Urine Blood (Negative) Urine Nitrite (Negative) Urine Bilirubin (Negative) Urine Urobilinogen (Negative) Ur Leukocyte Esterase (Negative) Nasal Screen MRSA (PCR) (Negative) Blood Type Blood Type Recheck Antibody Screen Crossmatch 01/22/19 01/22/19 01/22/19 Range/Units 10:08 10:08 10:08 WBC (4.8-10.8) K/uL RBC (4.7-6.1) M/uL Hgb (14.0-18.0) g/dL POC Hgb (14.0-18.0) g/dl Hct (42-52) % POC Hct (42-52) % MCV (80-100) fL MCH (25-34) pg MCHC (32-36) g/dL RDW Std Deviation (36.4-46.3) fL RDW Coeff of Migel (11.5-14.5) % Plt Count (130-400) K/uL MPV (7.4-10.4) fL Immature Gran % (Auto) % Neut % (Auto) % Lymph % (Auto) % [place] % (Auto) % Eos % (Auto) % Baso % (Auto) % Immature Gran # (Auto) (0.00-0.02) K/uL Neut # (Auto) (1.4-6.5) K/uL Lymph # (Auto) (1.2-3.4) K/uL [place] # (Auto) (0.11-0.59) K/uL Eos # (Auto) (0-0.5) K/uL Baso # (Auto) (0-0.2) K/uL Ovalocytes PT (9.0-12.0) Seconds INR (0.9-1.1) APTT (21.0-31.0) Seconds PTT Ratio VBG pH 7.44 H (7.36-7.41) VBG pCO2 35 L (38-50) mmHg VBG pO2 31 mmHg VBG HCO3 23 mmol/L VBG O2 Saturation < 60.0 % VBG Base Excess -1.3 mEq/L Barometric Pressure 733.6 mm/Hg POC Sodium (135-144) mEq/L Sodium (136-145) mmol/L POC Potassium (3.3-5.0) mEq/L Potassium (3.5-5.1) mmol/L POC Chloride (101-112) mEq/L Chloride (98-107) mmol/L Carbon Dioxide (21-32) mmol/L POC Total CO2 (24-31) mEq/l Anion Gap (3-11) POC Anion Gap (16-25) mmol/L POC BUN (7-18) mg/dl BUN (7-18) mg/dl Creatinine (0.6-1.4) mg/dl POC Creatinine (0.6-1.3) mg/dl Est Cr Clr Drug Dosing ml/min Est GFR ( Amer) Est GFR (Non-Af Amer) BUN/Creatinine Ratio (10-20) Glucose (70-99) mg/dl POC Glucose (other) (70-99) mg/dl Lactate 5.1 H* (0.4-2.0) mmol/L Calcium (8.5-10.1) mg/dl POC Ioniz Calcium Lesvia (1.12-1.32) mmol/l Phosphorus (2.5-4.9) mg/dl Magnesium (1.8-2.4) mg/dl Total Bilirubin (0.2-1) mg/dl AST (15-37) U/L ALT (12-78) U/L Alkaline Phosphatase (45-117) U/L Total Protein (6.4-8.2) gm/dl Albumin (3.4-5.0) gm/dl Globulin (2.5-4.0) gm/dl Albumin/Globulin Ratio (0.9-2) Urine Color Urine Appearance (Clear) Urine pH (4.5-7.5) Ur Specific [place] (1.000-1.030) Urine Protein (Negative) Urine Glucose (UA) (Negative) Urine Ketones (Negative) Urine Blood (Negative) Urine Nitrite (Negative) Urine Bilirubin (Negative) Urine Urobilinogen (Negative) Ur Leukocyte Esterase (Negative) Nasal Screen MRSA (PCR) (Negative) Blood Type A Negative Blood Type Recheck Antibody Screen NEGATIVE Crossmatch See Detail 01/22/19 01/22/19 01/22/19 Range/Units 10:09 10:15 13:25 WBC (4.8-10.8) K/uL RBC (4.7-6.1) M/uL Hgb (14.0-18.0) g/dL POC Hgb 7.1 L (14.0-18.0) g/dl Hct (42-52) % POC Hct 21 L (42-52) % MCV (80-100) fL MCH (25-34) pg MCHC (32-36) g/dL RDW Std Deviation (36.4-46.3) fL RDW Coeff of Migel (11.5-14.5) % Plt Count (130-400) K/uL MPV (7.4-10.4) fL Immature Gran % (Auto) % Neut % (Auto) % Lymph % (Auto) % Kent % (Auto) % Eos % (Auto) % Baso % (Auto) % Immature Gran # (Auto) (0.00-0.02) K/uL Neut # (Auto) (1.4-6.5) K/uL Lymph # (Auto) (1.2-3.4) K/uL Kent # (Auto) (0.11-0.59) K/uL Eos # (Auto) (0-0.5) K/uL Baso # (Auto) (0-0.2) K/uL Ovalocytes PT (9.0-12.0) Seconds INR (0.9-1.1) APTT (21.0-31.0) Seconds PTT Ratio VBG pH (7.36-7.41) VBG pCO2 (38-50) mmHg VBG pO2 mmHg VBG HCO3 mmol/L VBG O2 Saturation % VBG Base Excess mEq/L Barometric Pressure mm/Hg POC Sodium 132 L (135-144) mEq/L Sodium (136-145) mmol/L POC Potassium 4.4 (3.3-5.0) mEq/L Potassium (3.5-5.1) mmol/L POC Chloride 94 L (101-112) mEq/L Chloride (98-107) mmol/L Carbon Dioxide (21-32) mmol/L POC Total CO2 23 L (24-31) mEq/l Anion Gap (3-11) POC Anion Gap 20.0 (16-25) mmol/L POC BUN 43 H (7-18) mg/dl BUN (7-18) mg/dl Creatinine (0.6-1.4) mg/dl POC Creatinine 1.0 (0.6-1.3) mg/dl Est Cr Clr Drug Dosing ml/min Est GFR ( Amer) Est GFR (Non-Af Amer) BUN/Creatinine Ratio (10-20) Glucose (70-99) mg/dl POC Glucose (other) 101 H (70-99) mg/dl Lactate (0.4-2.0) mmol/L Calcium (8.5-10.1) mg/dl POC Ioniz Calcium Lesvia 1.02 L (1.12-1.32) mmol/l Phosphorus (2.5-4.9) mg/dl Magnesium (1.8-2.4) mg/dl Total Bilirubin (0.2-1) mg/dl AST (15-37) U/L ALT (12-78) U/L Alkaline Phosphatase (45-117) U/L Total Protein (6.4-8.2) gm/dl Albumin (3.4-5.0) gm/dl Globulin (2.5-4.0) gm/dl Albumin/Globulin Ratio (0.9-2) Urine Color Urine Appearance (Clear) Urine pH (4.5-7.5) Ur Specific [place] (1.000-1.030) Urine Protein (Negative) Urine Glucose (UA) (Negative) Urine Ketones (Negative) Urine Blood (Negative) Urine Nitrite (Negative) Urine Bilirubin (Negative) Urine Urobilinogen (Negative) Ur Leukocyte Esterase (Negative) Nasal Screen MRSA (PCR) Negative (Negative) Blood Type Blood Type Recheck A Negative Antibody Screen Crossmatch 01/22/19 01/22/19 01/22/19 Range/Units 13:35 14:02 14:02 WBC (4.8-10.8) K/uL RBC (4.7-6.1) M/uL Hgb (14.0-18.0) g/dL POC Hgb (14.0-18.0) g/dl Hct (42-52) % POC Hct (42-52) % MCV (80-100) fL MCH (25-34) pg MCHC (32-36) g/dL RDW Std Deviation (36.4-46.3) fL RDW Coeff of Migel (11.5-14.5) % Plt Count (130-400) K/uL MPV (7.4-10.4) fL Immature Gran % (Auto) % Neut % (Auto) % Lymph % (Auto) % Kent % (Auto) % Eos % (Auto) % Baso % (Auto) % Immature Gran # (Auto) (0.00-0.02) K/uL Neut # (Auto) (1.4-6.5) K/uL Lymph # (Auto) (1.2-3.4) K/uL [place] # (Auto) (0.11-0.59) K/uL Eos # (Auto) (0-0.5) K/uL Baso # (Auto) (0-0.2) K/uL Ovalocytes PT (9.0-12.0) Seconds INR (0.9-1.1) APTT (21.0-31.0) Seconds PTT Ratio VBG pH (7.36-7.41) VBG pCO2 (38-50) mmHg VBG pO2 mmHg VBG HCO3 mmol/L VBG O2 Saturation % VBG Base Excess mEq/L Barometric Pressure mm/Hg POC Sodium (135-144) mEq/L Sodium (136-145) mmol/L POC Potassium (3.3-5.0) mEq/L Potassium (3.5-5.1) mmol/L POC Chloride (101-112) mEq/L Chloride (98-107) mmol/L Carbon Dioxide (21-32) mmol/L POC Total CO2 (24-31) mEq/l Anion Gap (3-11) POC Anion Gap (16-25) mmol/L POC BUN (7-18) mg/dl BUN (7-18) mg/dl Creatinine (0.6-1.4) mg/dl POC Creatinine (0.6-1.3) mg/dl Est Cr Clr Drug Dosing ml/min Est GFR ( Amer) Est GFR (Non-Af Amer) BUN/Creatinine Ratio (10-20) Glucose (70-99) mg/dl POC Glucose (other) (70-99) mg/dl Lactate 3.2 H* (0.4-2.0) mmol/L Calcium (8.5-10.1) mg/dl POC Ioniz Calcium Lesvia (1.12-1.32) mmol/l Phosphorus 2.4 L (2.5-4.9) mg/dl Magnesium (1.8-2.4) mg/dl Total Bilirubin (0.2-1) mg/dl AST (15-37) U/L ALT (12-78) U/L Alkaline Phosphatase (45-117) U/L Total Protein (6.4-8.2) gm/dl Albumin (3.4-5.0) gm/dl Globulin (2.5-4.0) gm/dl Albumin/Globulin Ratio (0.9-2) Urine Color Yellow Urine Appearance Clear (Clear) Urine pH 7.5 (4.5-7.5) Ur Specific [place] 1.020 (1.000-1.030) Urine Protein Negative (Negative) Urine Glucose (UA) Negative (Negative) Urine Ketones 1+ H (Negative) Urine Blood Negative (Negative) Urine Nitrite Negative (Negative) Urine Bilirubin Negative (Negative) Urine Urobilinogen Negative (Negative) Ur Leukocyte Esterase Negative (Negative) Nasal Screen MRSA (PCR) (Negative) Blood Type Blood Type Recheck Antibody Screen Crossmatch Imaging Data Attestation: I personally reviewed and interpreted this imaging study as follows: Radiologist's Impression: Radiology results as stated below per my review and the radiologist's interpretation: XR chest 1V portable CLINICAL HISTORY: Sepsis COMPARISON STUDY: January 06, 2019 FINDINGS: The heart is normal in size. There is a retrocardiac opacity consistent with a hiatal hernia. There is no failure. There is no lobar consolidation. There is mild chronic interstitial thickening.[ No pleural effusions are visualized. IMPRESSION: Mild chronic interstitial thickening. No acute findings. Electronically signed by: Frankie Vela M.D. 01/22/2019 9:53 AM ECG Data Attestation: I personally reviewed and interpreted this ECG as follows: Indication: other (hypotension) Rate (beats per minute): 121 Rhythm: sinus bradycardia Findings: + other (normal interval, right axis deviation) Blood Pressure Blood Pressure Findings: Low blood pressure Blood Pressure Disposition: further management by hospitalist MARLY Narrative The patient is a 73 year old male w/ PMhx paranoid schizophrenia, COPD, HTN, GERD, and esophageal cancer who presents to the ED w/CC of hypotension Differential diagnosis: Etiologies such as gastroenteritis, food borne illness, infections, appendicitis, diverticulitis, inflammatory bowel disease, obstruction, GI bleed, biliary pathology, cardiac process, intracranial process, as well as others were entertained.d Patient was seen and evaluated the bedside. The patient does have a known history of esophageal cancer and reportedly was having some hypotension. The patient did have concern for possible scant amount of hematemesis. The patient initially did have a low hemoglobin. The patient was ordered a PPI bolus and drip GI was consulted and the patient was Consented for 2 units of blood. The patient was given additional fluids. I did speak with the on-call hospitalist as well as the manager revenue and the patient would be admitted to the intensive care unit. Impression & Plan Acute upper GI bleed, History of esophageal cancer Critical Care Time Critical Care Time: Yes (80 mins) Total Critical Care Time: 80 Discharge Plan Visit Data *Final* Discharge Date/Time: 01/22/19 13:20 Chief Complaint: Hypotension ED Provider: Sly Weir Discharge Problem: Acute upper GI bleed, History of esophageal cancer Patient Disposition: Admitted As Inpatient Discharge Instructions Interventions: ED Discharge Assessment Last Done: 01/22/19 13:20 The scribe's documentation has been prepared under my direction and personally reviewed by me in its entirety. I confirm that the note above accurately refl ects all work, treatment, procedures, and medical decision making performed by me.
--- NOTE | 2019-01-22 18:01 | Critical Care Consultation ---
Date of Consultation January 22, 2019 Patient is a 73-year-old male who presented to the emergency department [facility] for the chief complaint of hypotension. In the emergency department he was evaluated for coffee-ground emesis and low blood pressure there was a report of possible Kevin's esophagus found on a previous endoscopic evaluation. He was consented for blood transfusion started on a PPI infusion and I was consulted for further evaluation and management. Supervising Physician Co-Signing Physician Notes Reason Critically Ill: 73-year-old female with coffee-ground emesis with tachycardia and lactic acid acidosis PLAN: Neuro: History paranoid schizophrenia -Divalproex Delayed Release 250mg BID -Quetiapine 400mg daily -Risperidone 2mg BID -Trazodone 100 mg nightly Resp: Tachypnea: Resolved Tobacco abuse Likely COPD changes -Smoking cessation education CV: Tachycardia -Metoprolol succinate 25 mg half tab by mouth once daily Fluids/Renal: Lactic acid acidosis: Resolved Acute kidney injury -Greater than 0.3 mg/dL increased from baseline which appears to be 0.6 ID: Discontinuing antibiotics GI/Nutrition: Severe protein calorie malnutrition -Hypoalbuminemia, anemia, Sarcopena Kevin's esophagus Possible gastrointestinal hemorrhage -Trend H&H -Continue PPI infusion -Reviewed GI consultation: No intervention indicated at this time Heme: Chronic anemia Acute blood loss anemia -Transfused 2 units with appropriate response continue to trend H&H DVT prophylaxis: SCDs, chemical prophylaxis is contraindicated secondary to possible active GI bleeding Endocrine: ICU hyperglycemia protocol TSH within normal limits as of January 06, 2019 Vascular access: Peripheral IVs Code Status: Full: I confirmed this with the patient and discussed risks and benefits. I have personally spent 85 minutes of critical care time in the direct management of this patient. This is a life/limb threatening event. This includes time spent evaluating patient, direct bedside care, chart review, placing orders, interpretation of diagnostic studies, discussion with consultants, patient, and/or family members regarding treatment decisions, as well as other required patient management activities. This time is exclusive of all separately billable procedures, and teaching time and separate from and in addition to any other critical care service time. History of Present Illness Attending Physician: Yahir Swift MD Allergies Allergy/AdvReac Type Severity Reaction Status Date / Time buspirone Allergy Unknown Verified 01/22/19 10:35 clonazepam Allergy Unknown unknown Verified 01/22/19 10:35 clozapine Allergy Unknown Verified 01/22/19 10:35 Home Medications Home Medications Medication Instructions Recorded Confirmed Type Dairy Relief 9,000 unit PO QID 09/09/18 01/22/19 History acetaminophen [Acetaminophen Extra 1,000 mg PO Q8H PRN 09/09/18 01/22/19 History Strength] albuterol sulfate [Ventolin HFA] 2 puff INHALATION QID PRN 09/09/18 01/22/19 History aspirin [Aspirin Low Dose] 81 mg PO QAM 09/09/18 01/22/19 History benztropine 0.5 mg PO BID 09/09/18 01/22/19 History calcium carbonate [Calcium Antacid] 200 - 400 mg PO DAILY 09/09/18 01/22/19 Hi story divalproex 250 mg PO BID 09/09/18 01/22/19 History guaifenesin [Mucinex] 600 mg PO BID PRN 09/09/18 01/22/19 History metoprolol succinate 12.5 mg PO QAM 09/09/18 01/22/19 History omeprazole 40 mg PO QAM 09/09/18 01/22/19 History quetiapine 400 mg PO QPM 09/09/18 01/22/19 History ranitidine HCl 150 mg PO BID 09/09/18 01/22/19 History risperidone 2 mg PO BID 09/09/18 01/22/19 History trazodone 100 mg PO HS 09/09/18 01/22/19 History Preparation H 1 applic [place] TID PRN 10/16/18 01/22/19 History loperamide [Imodium A-D] 2 mg PO UD PRN MDD 4 caplets/24 10/16/18 01/22/19 Histo ry Hours ipratropium bromide 0.5 mg NEB Q6R PRN #75 ml 10/19/18 01/22/19 Rx potassium chloride 10 meq PO BID 10/28/18 01/22/19 History alum-mag hydroxide-simeth [Rulox] 10 ml PO Q4H PRN 01/06/19 01/22/19 History diphenhydramine HCl [Banophen] 25 mg PO HS PRN 01/06/19 01/22/19 History psyllium seed (sugar) [Reguloid] 1 tsp PO DAILY PRN 01/06/19 01/22/19 History polyethylene glycol 3350 [Miralax] 17 gm PO DAILY PRN 01/22/19 01/22/19 History Patient History Medical History History of esophageal cancer (Chronic) 11/20/18 EGD: Nodular ulcerated lesion. EUS: Mass lower third esophagus. Biopsies positive for adenocarcinoma. Paranoid schizophrenia (Chronic) COPD (chronic obstructive pulmonary disease) (Chronic) HTN (hypertension) (Chronic) GERD (gastroesophageal reflux disease) (Chronic) Tobacco abuse (Chronic) Kevin esophagus (Chronic) Surgical History History of esophagogastroduodenoscopy (EGD) (Chronic) History of skin graft (Chronic) as child History of bowel resection (Chronic) "for diverticulitis " in 2009 Family History Mother Stroke Thyroid disorder Father Heart attack Other Heart disease Social History Preferred Language: Mohawk Communication Ability: Effective Beliefs That Will Affect Care: None Current Living Situation: Personal Care Facility Current Living Situation Comment: [facility] Feels Safe at Home: Yes Safety Concerns: Feels Safe At This Time Smoking Status: Current every day smoker Hx Alcohol Use: No Hx Substance Use: No Physical Exam Vital Signs (Past 24 Hours): Last Vital Signs Temp 36.9 C 01/22/19 17:04 Pulse 114 H 01/22/19 17:04 Resp 19 01/22/19 17:04 BP 131/84 01/22/19 17:04 Pulse Ox 93 01/22/19 17:04 General: Cachectic appearing elderly male I have reviewed the recorded vital signs Neurological: RASS score: 0, Moves all 4 extremities, Psychological: GCS 15 following complex commands Eyes: Pupils are equal, round and reactive to light, anicteric sclera. Symmetrical lids. HENT: Oropharynx is clear, patient has moist mucous membranes. Neck: Supple. Symmetric. trachea midline. No thyromegaly. Cardiovascular: Normal peripheral perfusion. Distal pulses and capillary refill intact. No JVD. Tachycardia Respiratory: Respirations are non-labored, no accessory muscle use. Breath sounds are equal. Gastrointestinal: Soft. Non-distended. Lymphatic: No cervical lymphadenopathy. Musculoskeletal: No deformity. No clubbing nor cyanosis. Results & Data Laboratory Results 01/22/19 01/22/19 01/22/19 Range/Units 18:27 18:27 14:02 WBC (4.8-10.8) K/uL RBC (4.7-6.1) M/uL Hgb 9.7 L (14.0-18.0) g/dL POC Hgb (14.0-18.0) g/dl Hct 28.6 L (42-52) % POC Hct (42-52) % MCV (80-100) fL MCH (25-34) pg MCHC (32-36) g/dL RDW Std Deviation (36.4-46.3) fL RDW Coeff of Migel (11.5-14.5) % Plt Count (130-400) K/uL MPV (7.4-10.4) fL Immature Gran % (Auto) % Neut % (Auto) % Lymph % (Auto) % Faulkner % (Auto) % Eos % (Auto) % Baso % (Auto) % Immature Gran # (Auto) (0.00-0.02) K/uL Neut # (Auto) (1.4-6.5) K/uL Lymph # (Auto) (1.2-3.4) K/uL Faulkner # (Auto) (0.11-0.59) K/uL Eos # (Auto) (0-0.5) K/uL Baso # (Auto) (0-0.2) K/uL Ovalocytes PT (9.0-12.0) Seconds INR (0.9-1.1) APTT (21.0-31.0) Seconds PTT Ratio VBG pH (7.36-7.41) VBG pCO2 (38-50) mmHg VBG pO2 mmHg VBG HCO3 mmol/L VBG O2 Saturation % VBG Base Excess mEq/L Barometric Pressure mm/Hg POC Sodium (135-144) mEq/L Sodium (136-145) mmol/L POC Potassium (3.3-5.0) mEq/L Potassium (3.5-5.1) mmol/L POC Chloride (101-112) mEq/L Chloride (98-107) mmol/L Carbon Dioxide (21-32) mmol/L POC Total CO2 (24-31) mEq/l Anion Gap (3-11) POC Anion Gap (16-25) mmol/L POC BUN (7-18) mg/dl BUN (7-18) mg/dl Creatinine (0.6-1.4) mg/dl POC Creatinine (0.6-1.3) mg/dl Est Cr Clr Drug Dosing ml/min Est GFR ( Amer) Est GFR (Non-Af Amer) BUN/Creatinine Ratio (10-20) Glucose (70-99) mg/dl POC Glucose (other) (70-99) mg/dl Lactate 2.0 3.2 H* (0.4-2.0) mmol/L Calcium (8.5-10.1) mg/dl POC Ioniz Calcium Lesvia (1.12-1.32) mmol/l Phosphorus (2.5-4.9) mg/dl Magnesium (1.8-2.4) mg/dl Total Bilirubin (0.2-1) mg/dl AST (15-37) U/L ALT (12-78) U/L Alkaline Phosphatase (45-117) U/L Total Protein (6.4-8.2) gm/dl Albumin (3.4-5.0) gm/dl Globulin (2.5-4.0) gm/dl Albumin/Globulin Ratio (0.9-2) Urine Color Urine Appearance (Clear) Urine pH (4.5-7.5) Ur Specific Cass (1.000-1.030) Urine Protein (Negative) Urine Glucose (UA) (Negative) Urine Ketones (Negative) Urine Blood (Negative) Urine Nitrite (Negative) Urine Bilirubin (Negative) Urine Urobilinogen (Negative) Ur Leukocyte Esterase (Negative) Nasal Screen MRSA (PCR) (Negative) Blood Type Blood Type Recheck Antibody Screen Crossmatch 01/22/19 01/22/19 01/22/19 Range/Units 14:02 13:35 13:25 WBC (4.8-10.8) K/uL RBC (4.7-6.1) M/uL Hgb (14.0-18.0) g/dL POC Hgb (14.0-18.0) g/dl Hct (42-52) % POC Hct (42-52) % MCV (80-100) fL MCH (25-34) pg MCHC (32-36) g/dL RDW Std Deviation (36.4-46.3) fL RDW Coeff of Migel (11.5-14.5) % Plt Count (130-400) K/uL MPV (7.4-10.4) fL Immature Gran % (Auto) % Neut % (Auto) % Lymph % (Auto) % Faulkner % (Auto) % Eos % (Auto) % Baso % (Auto) % Immature Gran # (Auto) (0.00-0.02) K/uL Neut # (Auto) (1.4-6.5) K/uL Lymph # (Auto) (1.2-3.4) K/uL Faulkner # (Auto) (0.11-0.59) K/uL Eos # (Auto) (0-0.5) K/uL Baso # (Auto) (0-0.2) K/uL Ovalocytes PT (9.0-12.0) Seconds INR (0.9-1.1) APTT (21.0-31.0) Seconds PTT Ratio VBG pH (7.36-7.41) VBG pCO2 (38-50) mmHg VBG pO2 mmHg VBG HCO3 mmol/L VBG O2 Saturation % VBG Base Excess mEq/L Barometric Pressure mm/Hg POC Sodium (135-144) mEq/L Sodium (136-145) mmol/L POC Potassium (3.3-5.0) mEq/L Potassium (3.5-5.1) mmol/L POC Chloride (101-112) mEq/L Chloride (98-107) mmol/L Carbon Dioxide (21-32) mmol/L POC Total CO2 (24-31) mEq/l Anion Gap (3-11) POC Anion Gap (16-25) mmol/L POC BUN (7-18) mg/dl BUN (7-18) mg/dl Creatinine (0.6-1.4) mg/dl POC Creatinine (0.6-1.3) mg/dl Est Cr Clr Drug Dosing ml/min Est GFR ( Amer) Est GFR (Non-Af Amer) BUN/Creatinine Ratio (10-20) Glucose (70-99) mg/dl POC Glucose (other) (70-99) mg/dl Lactate (0.4-2.0) mmol/L Calcium (8.5-10.1) mg/dl POC Ioniz Calcium Lesvia (1.12-1.32) mmol/l Phosphorus 2.4 L (2.5-4.9) mg/dl Magnesium (1.8-2.4) mg/dl Total Bilirubin (0.2-1) mg/dl AST (15-37) U/L ALT (12-78) U/L Alkaline Phosphatase (45-117) U/L Total Protein (6.4-8.2) gm/dl Albumin (3.4-5.0) gm/dl Globulin (2.5-4.0) gm/dl Albumin/Globulin Ratio (0.9-2) Urine Color Yellow Urine Appearance Clear (Clear) Urine pH 7.5 (4.5-7.5) Ur Specific Cass 1.020 (1.000-1.030) Urine Protein Negative (Negative) Urine Glucose (UA) Negative (Negative) Urine Ketones 1+ H (Negative) Urine Blood Negative (Negative) Urine Nitrite Negative (Negative) Urine Bilirubin Negative (Negative) Urine Urobilinogen Negative (Negative) Ur Leukocyte Esterase Negative (Negative) Nasal Screen MRSA (PCR) Negative (Negative) Blood Type Blood Type Recheck Antibody Screen Crossmatch 01/22/19 01/22/19 01/22/19 Range/Units 10:15 10:09 10:08 WBC (4.8-10.8) K/uL RBC (4.7-6.1) M/uL Hgb (14.0-18.0) g/dL POC Hgb 7.1 L (14.0-18.0) g/dl Hct (42-52) % POC Hct 21 L (42-52) % MCV (80-100) fL MCH (25-34) pg MCHC (32-36) g/dL RDW Std Deviation (36.4-46.3) fL RDW Coeff of Migel (11.5-14.5) % Plt Count (130-400) K/uL MPV (7.4-10.4) fL Immature Gran % (Auto) % Neut % (Auto) % Lymph % (Auto) % Faulkner % (Auto) % Eos % (Auto) % Baso % (Auto) % Immature Gran # (Auto) (0.00-0.02) K/uL Neut # (Auto) (1.4-6.5) K/uL Lymph # (Auto) (1.2-3.4) K/uL Faulkner # (Auto) (0.11-0.59) K/uL Eos # (Auto) (0-0.5) K/uL Baso # (Auto) (0-0.2) K/uL Ovalocytes PT (9.0-12.0) Seconds INR (0.9-1.1) APTT (21.0-31.0) Seconds PTT Ratio VBG pH (7.36-7.41) VBG pCO2 (38-50) mmHg VBG pO2 mmHg VBG HCO3 mmol/L VBG O2 Saturation % VBG Base Excess mEq/L Barometric Pressure mm/Hg POC Sodium 132 L (135-144) mEq/L Sodium (136-145) mmol/L POC Potassium 4.4 (3.3-5.0) mEq/L Potassium (3.5-5.1) mmol/L POC Chloride 94 L (101-112) mEq/L Chloride (98-107) mmol/L Carbon Dioxide (21-32) mmol/L POC Total CO2 23 L (24-31) mEq/l Anion Gap (3-11) POC Anion Gap 20.0 (16-25) mmol/L POC BUN 43 H (7-18) mg/dl BUN (7-18) mg/dl Creatinine (0.6-1.4) mg/dl POC Creatinine 1.0 (0.6-1.3) mg/dl Est Cr Clr Drug Dosing ml/min Est GFR ( Amer) Est GFR (Non-Af Amer) BUN/Creatinine Ratio (10-20) Glucose (70-99) mg/dl POC Glucose (other) 101 H (70-99) mg/dl Lactate (0.4-2.0) mmol/L Calcium (8.5-10.1) mg/dl POC Ioniz Calcium Lesvia 1.02 L (1.12-1.32) mmol/l Phosphorus (2.5-4.9) mg/dl Magnesium (1.8-2.4) mg/dl Total Bilirubin (0.2-1) mg/dl AST (15-37) U/L ALT (12-78) U/L Alkaline Phosphatase (45-117) U/L Total Protein (6.4-8.2) gm/dl Albumin (3.4-5.0) gm/dl Globulin (2.5-4.0) gm/dl Albumin/Globulin Ratio (0.9-2) Urine Color Urine Appearance (Clear) Urine pH (4.5-7.5) Ur Specific Cass (1.000-1.030) Urine Protein (Negative) Urine Glucose (UA) (Negative) Urine Ketones (Negative) Urine Blood (Negative) Urine Nitrite (Negative) Urine Bilirubin (Negative) Urine Urobilinogen (Negative) Ur Leukocyte Esterase (Negative) Nasal Screen MRSA (PCR) (Negative) Blood Type A Negative Blood Type Recheck A Negative Antibody Screen NEGATIVE Crossmatch See Detail 01/22/19 01/22/19 01/22/19 Range/Units 10:08 10:08 10:08 WBC (4.8-10.8) K/uL RBC (4.7-6.1) M/uL Hgb (14.0-18.0) g/dL POC Hgb (14.0-18.0) g/dl Hct (42-52) % POC Hct (42-52) % MCV (80-100) fL MCH (25-34) pg MCHC (32-36) g/dL RDW Std Deviation (36.4-46.3) fL RDW Coeff of Migel (11.5-14.5) % Plt Count (130-400) K/uL MPV (7.4-10.4) fL Immature Gran % (Auto) % Neut % (Auto) % Lymph % (Auto) % Faulkner % (Auto) % Eos % (Auto) % Baso % (Auto) % Immature Gran # (Auto) (0.00-0.02) K/uL Neut # (Auto) (1.4-6.5) K/uL Lymph # (Auto) (1.2-3.4) K/uL Faulkner # (Auto) (0.11-0.59) K/uL Eos # (Auto) (0-0.5) K/uL Baso # (Auto) (0-0.2) K/uL Ovalocytes PT (9.0-12.0) Seconds INR (0.9-1.1) APTT (21.0-31.0) Seconds PTT Ratio VBG pH 7.44 H (7.36-7.41) VBG pCO2 35 L (38-50) mmHg VBG pO2 31 mmHg VBG HCO3 23 mmol/L VBG O2 Saturation < 60.0 % VBG Base Excess -1.3 mEq/L Barometric Pressure 733.6 mm/Hg POC Sodium (135-144) mEq/L Sodium 135 L (136-145) mmol/L POC Potassium (3.3-5.0) mEq/L Potassium 4.5 (3.5-5.1) mmol/L POC Chloride (101-112) mEq/L Chloride 100 (98-107) mmol/L Carbon Dioxide 24 (21-32) mmol/L POC Total CO2 (24-31) mEq/l Anion Gap 11.0 (3-11) POC Anion Gap (16-25) mmol/L POC BUN (7-18) mg/dl BUN 49 H (7-18) mg/dl Creatinine 1.00 (0.6-1.4) mg/dl POC Creatinine (0.6-1.3) mg/dl Est Cr Clr Drug Dosing 58.1 ml/min Est GFR ( Amer) 87.4 Est GFR (Non-Af Amer) 75.4 BUN/Creatinine Ratio 49.1 H (10-20) Glucose 102 H (70-99) mg/dl POC Glucose (other) (70-99) mg/dl Lactate 5.1 H* (0.4-2.0) mmol/L Calcium 7.3 L (8.5-10.1) mg/dl POC Ioniz Calcium Lesvia (1.12-1.32) mmol/l Phosphorus (2.5-4.9) mg/dl Magnesium 1.3 L (1.8-2.4) mg/dl Total Bilirubin 0.3 (0.2-1) mg/dl AST 9 L (15-37) U/L ALT 12 (12-78) U/L Alkaline Phosphatase 84 (45-117) U/L Total Protein 5.5 L (6.4-8.2) gm/dl Albumin 2.4 L (3.4-5.0) gm/dl Globulin 3.1 (2.5-4.0) gm/dl Albumin/Globulin Ratio 0.8 L (0.9-2) Urine Color Urine Appearance (Clear) Urine pH (4.5-7.5) Ur Specific Cass (1.000-1.030) Urine Protein (Negative) Urine Glucose (UA) (Negative) Urine Ketones (Negative) Urine Blood (Negative) Urine Nitrite (Negative) Urine Bilirubin (Negative) Urine Urobilinogen (Negative) Ur Leukocyte Esterase (Negative) Nasal Screen MRSA (PCR) (Negative) Blood Type Blood Type Recheck Antibody Screen Crossmatch 01/22/19 01/22/19 Range/Units 10:08 10:08 WBC 15.03 H (4.8-10.8) K/uL RBC 2.48 L (4.7-6.1) M/uL Hgb 7.2 L (14.0-18.0) g/dL POC Hgb (14.0-18.0) g/dl Hct 20.8 L* (42-52) % POC Hct (42-52) % MCV 83.9 (80-100) fL MCH 29.0 (25-34) pg MCHC 34.6 (32-36) g/dL RDW Std Deviation 47.5 H (36.4-46.3) fL RDW Coeff of Migel 15.3 H (11.5-14.5) % Plt Count 362 (130-400) K/uL MPV 9.3 (7.4-10.4) fL Immature Gran % (Auto) 0.9 % Neut % (Auto) 89.2 % Lymph % (Auto) 5.5 % Faulkner % (Auto) 4.3 % Eos % (Auto) 0.0 % Baso % (Auto) 0.1 % Immature Gran # (Auto) 0.13 H (0.00-0.02) K/uL Neut # (Auto) 13.41 H (1.4-6.5) K/uL Lymph # (Auto) 0.83 L (1.2-3.4) K/uL Faulkner # (Auto) 0.65 H (0.11-0.59) K/uL Eos # (Auto) 0.00 (0-0.5) K/uL Baso # (Auto) 0.01 (0-0.2) K/uL Ovalocytes 1+ PT 14.9 H (9.0-12.0) Seconds INR 1.5 H (0.9-1.1) APTT 24.9 (21.0-31.0) Seconds PTT Ratio 0.9 VBG pH (7.36-7.41) VBG pCO2 (38-50) mmHg VBG pO2 mmHg VBG HCO3 mmol/L VBG O2 Saturation % VBG Base Excess mEq/L Barometric Pressure mm/Hg POC Sodium (135-144) mEq/L Sodium (136-145) mmol/L POC Potassium (3.3-5.0) mEq/L Potassium (3.5-5.1) mmol/L POC Chloride (101-112) mEq/L Chloride (98-107) mmol/L Carbon Dioxide (21-32) mmol/L POC Total CO2 (24-31) mEq/l Anion Gap (3-11) POC Anion Gap (16-25) mmol/L POC BUN (7-18) mg/dl BUN (7-18) mg/dl Creatinine (0.6-1.4) mg/dl POC Creatinine (0.6-1.3) mg/dl Est Cr Clr Drug Dosing ml/min Est GFR ( Amer) Est GFR (Non-Af Amer) BUN/Creatinine Ratio (10-20) Glucose (70-99) mg/dl POC Glucose (other) (70-99) mg/dl Lactate (0.4-2.0) mmol/L Calcium (8.5-10.1) mg/dl POC Ioniz Calcium Lesvia (1.12-1.32) mmol/l Phosphorus (2.5-4.9) mg/dl Magnesium (1.8-2.4) mg/dl Total Bilirubin (0.2-1) mg/dl AST (15-37) U/L ALT (12-78) U/L Alkaline Phosphatase (45-117) U/L Total Protein (6.4-8.2) gm/dl Albumin (3.4-5.0) gm/dl Globulin (2.5-4.0) gm/dl Albumin/Globulin Ratio (0.9-2) Urine Color Urine Appearance (Clear) Urine pH (4.5-7.5) Ur Specific Cass (1.000-1.030) Urine Protein (Negative) Urine Glucose (UA) (Negative) Urine Ketones (Negative) Urine Blood (Negative) Urine Nitrite (Negative) Urine Bilirubin (Negative) Urine Urobilinogen (Negative) Ur Leukocyte Esterase (Negative) Nasal Screen MRSA (PCR) (Negative) Blood Type Blood Type Recheck Antibody Screen Crossmatch ECG Additional Comments: Sinus tachycardia with nonspecific ST segment abnormalities.
[2019-01-22 18:35] LABS: Hematocrit (blood only) 28.6 % (42-52); Hemoglobin 9.7 g/dL (14.0-18.0)
[2019-01-22] MEDS ORDERED: METOPROLOL SUCC 25MG EXT REL TAB PO SCH (19:30)
[2019-01-22] MEDS: TRAZODONE HCL 100 MG TAB PO SCH (20:13)
[2019-01-22] MEDS: risperiDONE 2 MG TABLET PO SCH (20:14)
[2019-01-22] MEDS: BENZTROPINE MESYLATE 1 MG TAB PO SCH (20:14)
[2019-01-22] MEDS: DIVALPROEX DELAY RELEASE 250 MG TABEC PO SCH (20:15)
[2019-01-22] MEDS: QUETIAPINE FUMARATE 200 MG TAB PO SCH (20:16)
[2019-01-22] MEDS: NICOTINE 14 MG/24 HR PATCH TD SCH (22:37)
[2019-01-22] MEDS ORDERED: MAGNESIUM SULFATE / D5W 1 GM/100 ML BAG IV ONE (23:31)
[2019-01-22] MEDS ORDERED: DIGOXIN 250 MCG in SYRINGE 9 ML IV ONE (23:45)
[2019-01-23 00:02] LABS: Hematocrit (blood only) 25.8 % (42-52); Hemoglobin 8.9 g/dL (14.0-18.0)
[2019-01-23] MEDS ORDERED: METOPROLOL SUCC 25MG EXT REL TAB PO SCH (00:15)
[2019-01-23 00:25] LABS: BUN Creatinine Ratio 47.9 (10-20); Calcium 7.4 mg/dl (8.5-10.1); Creatinine Clr Calc Pharmacy 91.3 ml/min; Est GFR (African American) 125.3; Est GFR (Non-African American) 108.1; Magnesium 1.8 mg/dl (1.8-2.4); Potassium 3.3 mmol/L (3.5-5.1)
[2019-01-23] MEDS ORDERED: POTASSIUM CHLORIDE 20 MEQ TABCR PO STA ×2 (01:09→06:33)
[2019-01-23] MEDS ORDERED: MAGNESIUM SULFATE / D5W 1 GM/100 ML BAG IV ONE (01:10)
[2019-01-23] MEDS ORDERED: NSS + 20MEQ KCL 20 MEQ/1,000 ML BAG IV ONE (01:15)
[2019-01-23] MEDS: PANTOprazole 40 MG in DEXTROSE 5% 100 ML IV SCH (01:33)
[2019-01-23 01:39] LABS: Albumin Level 2.4 gm/dl (3.4-5.0)
[2019-01-23] MEDS ORDERED: POTASSIUM CHLORIDE 20 MEQ TABCR PO ONE ×2 (03:00→10:15)
[2019-01-23] MEDS: D5W AND LACTATED RINGERS 1,000 ML IV SCH ×2 (03:31→20:47)
[2019-01-23] MEDS ORDERED: VANCOMYCIN HCL 1,000 MG in SODIUM CHLORIDE 0.9% 250 ML IV SCH (04:00)
[2019-01-23 04:58] LABS: Basophils # (auto) 0.02 K/uL (0-0.2); Basophils % (auto) 0.1 %; Eosinophils # (auto) 0.02 K/uL (0-0.5); Eosinophils % (auto) 0.1 %; Hemoglobin 9.6 g/dL (14.0-18.0); Immature Granulocytes # (auto) 0.06 K/uL (0.00-0.02); Immature Granulocytes % (auto) 0.4 %; Lymphocytes # (auto) 1.96 K/uL (1.2-3.4); Lymphocytes % (auto) 11.6 %; Mean Corpuscular Hgb Conc 34.3 g/dL (32-36); Mean Corpuscular Volume 82.6 fL (80-100); Mean Platelet Volume 9.4 fL (7.4-10.4); Monocytes % (auto) 10.7 %; Neutrophils # (auto) 13.02 K/uL (1.4-6.5); Neutrophils % (auto) 77.1 %; Platelet Count 309 K/uL (130-400); RDW Coefficient of Variation 15.5 % (11.5-14.5); RDW Standard Deviation 46.5 fL (36.4-46.3); Red Blood Count 3.39 M/uL (4.7-6.1); White Blood Count 16.88 K/uL (4.8-10.8)
[2019-01-23 05:17] LABS: BUN Creatinine Ratio 36.9 (10-20); Calcium 7.4 mg/dl (8.5-10.1); Est GFR (African American) 128.5; Est GFR (Non-African American) 110.9; Magnesium 2.3 mg/dl (1.8-2.4); Phosphorus 2.5 mg/dl (2.5-4.9); Potassium 3.9 mmol/L (3.5-5.1)
[2019-01-23] MEDS ORDERED: DIGOXIN 250 MCG in SYRINGE 9 ML IV ONE (06:45)
--- NOTE | 2019-01-23 06:49 | Critical Care Progress Note ---
Date of Service January 23, 2019 Assessment & Plan (1) Acute upper GI bleed: Reason Critically Ill: 73-year-old female with coffee-ground emesis with tachycardia and lactic acidosis PLAN: Neuro: History paranoid schizophrenia -Divalproex Delayed Release 250mg BID -Quetiapine 400mg daily -Risperidone 2mg BID -Trazodone 100 mg nightly Resp: Tachypnea: Resolved Tobacco abuse Likely COPD changes -Smoking cessation education CV: Tachycardia -Metoprolol succinate 25 mg half tab by mouth once daily Fluids/Renal: Lactic acid acidosis: Resolved Acute kidney injury: Resolved -Creatinine returned to baseline ID: Discontinuing antibiotics GI/Nutrition: Severe protein calorie malnutrition -Hypoalbuminemia, anemia, Sarcopena Full liquid diet today progress as tolerated Kevin's esophagus Possible gastrointestinal hemorrhage -Trend H&H check H&H twice daily today -Convert PPI infusion to twice daily -Reviewed GI consultation: No intervention indicated at this time Heme: Chronic anemia Acute blood loss anemia -Transfused 2 units with appropriate response continue to trend H&H DVT prophylaxis: SCDs, adding heparin 5000 twice daily for chemical prophylaxis Endocrine: ICU hyperglycemia protocol TSH within normal limits as of January 06, 2019 Vascular access: Peripheral IVs Code Status: Full: I confirmed this with the patient and discussed risks and benefits. PT OT consults Patient was discussed in multidisciplinary rounds, stable for downgrade out of ICU. (2) Leukocytosis: (3) COPD (chronic obstructive pulmonary disease): Supervising Physician Co-Signing Physician Notes Reason Critically Ill: 73-year-old female with coffee-ground emesis with tachycardia and lactic acid acidosis PLAN: Neuro: History paranoid schizophrenia -Divalproex Delayed Release 250mg BID -Quetiapine 400mg daily -Risperidone 2mg BID -Trazodone 100 mg nightly Resp: Tachypnea: Resolved Tobacco abuse Likely COPD changes -Smoking cessation education CV: Tachycardia -Metoprolol succinate 25 mg half tab by mouth once daily Fluids/Renal: Lactic acid acidosis: Resolved Acute kidney injury: Resolved -Creatinine returned to baseline ID: Discontinuing antibiotics GI/Nutrition: Severe protein calorie malnutrition -Hypoalbuminemia, anemia, Sarcopena Full liquid diet today progress as tolerated Kevin's esophagus Possible gastrointestinal hemorrhage -Trend H&H check H&H twice daily today -Convert PPI infusion to twice daily -Reviewed GI consultation: No intervention indicated at this time Heme: Chronic anemia Acute blood loss anemia -Transfused 2 units with appropriate response continue to trend H&H DVT prophylaxis: SCDs, adding heparin 5000 twice daily for chemical prophylaxis Endocrine: ICU hyperglycemia protocol TSH within normal limits as of January 06, 2019 Vascular access: Peripheral IVs Code Status: Full: I confirmed this with the patient and discussed risks and benefits. PT OT consults Patient was discussed in multidisciplinary rounds, stable for downgrade out of ICU. Subjective Patient is a 73-year-old male who presented to the emergency department from his personal [facility] for the chief complaint of hypotension. In the emergency department he was evaluated for coffee-ground emesis and low blood pressure there was a report of possible Kevin's esophagus found on a previous endoscopic evaluation. He was consented for blood transfusion started on a PPI infusion and transferred to ICU where he was transfused with 2 units RBCs. No reported coffee-ground emesis or tarry stools overnight. H&H stable this a.m. patient hemodynamically stable and okay for downgrade to telemetry. Review of Systems All systems reviewed & are unremarkable except as noted in HPI & below Physical Exam Vital Signs (Past 24 Hours): Last Vital Signs Temp 36.8 C 01/23/19 04:00 Pulse 108 H 01/23/19 06:00 Resp 20 01/23/19 06:00 BP 123/86 01/23/19 06:00 Pulse Ox 92 01/23/19 06:00 Constitutional: WD/WN, vitals as above comfortable Eyes: PERRL, conjunctivae normal, anicteric sclerae ENMT: external ear and nose normal, oropharynx normal Neck: trachea midline, no thyromegaly Respiratory: normal respiratory effort, lungs clear to auscultation Cardiovascular: Rate/Rhythm: regular rate and + tachycardic Heart Sounds: normal S1 and normal S2; no murmur Gastrointestinal (Abdomen): normal bowel sounds, soft, nontender, no hepatosplenomegaly Neurologic: Alert and oriented x3, PERRLA, symmetrical movement and strength bilaterally Results & Data Laboratory Results Laboratory Results - last 24 hr 01/22/19 01/22/19 01/22/19 10:08 10:08 10:08 WBC 15.03 H RBC 2.48 L Hgb 7.2 L Hct 20.8 L* MCV 83.9 MCH 29.0 MCHC 34.6 RDW Std Deviation 47.5 H RDW Coeff of Migel 15.3 H Plt Count 362 MPV 9.3 Immature Gran % (Auto) 0.9 Neut % (Auto) 89.2 Lymph % (Auto) 5.5 [place] % (Auto) 4.3 Eos % (Auto) 0.0 Baso % (Auto) 0.1 Immature Gran # (Auto) 0.13 H Neut # (Auto) 13.41 H Lymph # (Auto) 0.83 L [place] # (Auto) 0.65 H Eos # (Auto) 0.00 Baso # (Auto) 0.01 Ovalocytes 1+ PT 14.9 H INR 1.5 H APTT 24.9 PTT Ratio 0.9 Sodium 135 L Potassium 4.5 Chloride 100 Carbon Dioxide 24 Anion Gap 11.0 BUN 49 H Creatinine 1.00 Est Cr Clr Drug Dosing 58.1 Est GFR ( Amer) 87.4 Est GFR (Non-Af Amer) 75.4 BUN/Creatinine Ratio 49.1 H Glucose 102 H POC Glucose Lactate Calcium 7.3 L Phosphorus Magnesium 1.3 L Total Bilirubin 0.3 AST 9 L ALT 12 Alkaline Phosphatase 84 Ammonia Total Protein 5.5 L Albumin 2.4 L Globulin 3.1 Albumin/Globulin Ratio 0.8 L Procalcitonin Urine Color Urine Appearance Urine pH Ur Specific Roy Urine Protein Urine Glucose (UA) Urine Ketones Urine Blood Urine Nitrite Urine Bilirubin Urine Urobilinogen Ur Leukocyte Esterase Nasal Screen MRSA (PCR) Valproic Acid Blood Type Blood Type Recheck Antibody Screen Crossmatch 01/22/19 01/22/19 01/22/19 10:08 10:08 10:15 WBC RBC Hgb Hct MCV MCH MCHC RDW Std Deviation RDW Coeff of Migel Plt Count MPV Immature Gran % (Auto) Neut % (Auto) Lymph % (Auto) [place] % (Auto) Eos % (Auto) Baso % (Auto) Immature Gran # (Auto) Neut # (Auto) Lymph # (Auto) [place] # (Auto) Eos # (Auto) Baso # (Auto) Ovalocytes PT INR APTT PTT Ratio Sodium Potassium Chloride Carbon Dioxide Anion Gap BUN Creatinine Est Cr Clr Drug Dosing Est GFR ( Amer) Est GFR (Non-Af Amer) BUN/Creatinine Ratio Glucose POC Glucose Lactate 5.1 H* Calcium Phosphorus Magnesium Total Bilirubin AST ALT Alkaline Phosphatase Ammonia Total Protein Albumin Globulin Albumin/Globulin Ratio Procalcitonin Urine Color Urine Appearance Urine pH Ur Specific Roy Urine Protein Urine Glucose (UA) Urine Ketones Urine Blood Urine Nitrite Urine Bilirubin Urine Urobilinogen Ur Leukocyte Esterase Nasal Screen MRSA (PCR) Valproic Acid Blood Type A Negative Blood Type Recheck A Negative Antibody Screen NEGATIVE Crossmatch See Detail 01/22/19 01/22/19 01/22/19 13:25 13:35 14:02 WBC RBC Hgb Hct MCV MCH MCHC RDW Std Deviation RDW Coeff of Migel Plt Count MPV Immature Gran % (Auto) Neut % (Auto) Lymph % (Auto) [place] % (Auto) Eos % (Auto) Baso % (Auto) Immature Gran # (Auto) Neut # (Auto) Lymph # (Auto) [place] # (Auto) Eos # (Auto) Baso # (Auto) Ovalocytes PT INR APTT PTT Ratio Sodium Potassium Chloride Carbon Dioxide Anion Gap BUN Creatinine Est Cr Clr Drug Dosing Est GFR ( Amer) Est GFR (Non-Af Amer) BUN/Creatinine Ratio Glucose POC Glucose Lactate Calcium Phosphorus 2.4 L Magnesium Total Bilirubin AST ALT Alkaline Phosphatase Ammonia Total Protein Albumin Globulin Albumin/Globulin Ratio Procalcitonin Urine Color Yellow Urine Appearance Clear Urine pH 7.5 Ur Specific Roy 1.020 Urine Protein Negative Urine Glucose (UA) Negative Urine Ketones 1+ H Urine Blood Negative Urine Nitrite Negative Urine Bilirubin Negative Urine Urobilinogen Negative Ur Leukocyte Esterase Negative Nasal Screen MRSA (PCR) Negative Valproic Acid Blood Type Blood Type Recheck Antibody Screen Crossmatch 01/22/19 01/22/19 01/22/19 14:02 18:27 18:27 WBC RBC Hgb 9.7 L Hct 28.6 L MCV MCH MCHC RDW Std Deviation RDW Coeff of Migel Plt Count MPV Immature Gran % (Auto) Neut % (Auto) Lymph % (Auto) [place] % (Auto) Eos % (Auto) Baso % (Auto) Immature Gran # (Auto) Neut # (Auto) Lymph # (Auto) [place] # (Auto) Eos # (Auto) Baso # (Auto) Ovalocytes PT INR APTT PTT Ratio Sodium Potassium Chloride Carbon Dioxide Anion Gap BUN Creatinine Est Cr Clr Drug Dosing Est GFR ( Amer) Est GFR (Non-Af Amer) BUN/Creatinine Ratio Glucose POC Glucose Lactate 3.2 H* 2.0 Calcium Phosphorus Magnesium Total Bilirubin AST ALT Alkaline Phosphatase Ammonia Total Protein Albumin Globulin Albumin/Globulin Ratio Procalcitonin Urine Color Urine Appearance Urine pH Ur Specific Roy Urine Protein Urine Glucose (UA) Urine Ketones Urine Blood Urine Nitrite Urine Bilirubin Urine Urobilinogen Ur Leukocyte Esterase Nasal Screen MRSA (PCR) Valproic Acid Blood Type Blood Type Recheck Antibody Screen Crossmatch 01/22/19 01/22/19 01/22/19 21:11 23:50 23:50 WBC RBC Hgb 8.9 L Hct 25.8 L MCV MCH MCHC RDW Std Deviation RDW Coeff of Migel Plt Count MPV Immature Gran % (Auto) Neut % (Auto) Lymph % (Auto) [place] % (Auto) Eos % (Auto) Baso % (Auto) Immature Gran # (Auto) Neut # (Auto) Lymph # (Auto) [place] # (Auto) Eos # (Auto) Baso # (Auto) Ovalocytes PT INR APTT PTT Ratio Sodium 137 Potassium 3.3 L D Chloride 107 Carbon Dioxide 22 Anion Gap 8.0 BUN 24 H D Creatinine 0.51 L D Est Cr Clr Drug Dosing 91.3 Est GFR ( Amer) 125.3 Est GFR (Non-Af Amer) 108.1 BUN/Creatinine Ratio 47.9 H Glucose 83 POC Glucose 93 Lactate Calcium 7.4 L Phosphorus Magnesium 1.8 Total Bilirubin AST ALT Alkaline Phosphatase Ammonia Total Protein Albumin 2.4 L Globulin Albumin/Globulin Ratio Procalcitonin Urine Color Urine Appearance Urine pH Ur Specific Roy Urine Protein Urine Glucose (UA) Urine Ketones Urine Blood Urine Nitrite Urine Bilirubin Urine Urobilinogen Ur Leukocyte Esterase Nasal Screen MRSA (PCR) Valproic Acid Blood Type Blood Type Recheck Antibody Screen Crossmatch 01/22/19 01/22/19 01/23/19 23:50 23:55 00:14 WBC RBC Hgb Hct MCV MCH MCHC RDW Std Deviation RDW Coeff of Migel Plt Count MPV Immature Gran % (Auto) Neut % (Auto) Lymph % (Auto) [place] % (Auto) Eos % (Auto) Baso % (Auto) Immature Gran # (Auto) Neut # (Auto) Lymph # (Auto) [place] # (Auto) Eos # (Auto) Baso # (Auto) Ovalocytes PT INR APTT PTT Ratio Sodium Potassium Chloride Carbon Dioxide Anion Gap BUN Creatinine Est Cr Clr Drug Dosing Est GFR ( Amer) Est GFR (Non-Af Amer) BUN/Creatinine Ratio Glucose POC Glucose 97 Lactate Calcium Phosphorus Magnesium Total Bilirubin AST ALT Alkaline Phosphatase Ammonia 17.0 Total Protein Albumin Globulin Albumin/Globulin Ratio Procalcitonin 0.30 Urine Color Urine Appearance Urine pH Ur Specific Roy Urine Protein Urine Glucose (UA) Urine Ketones Urine Blood Urine Nitrite Urine Bilirubin Urine Urobilinogen Ur Leukocyte Esterase Nasal Screen MRSA (PCR) Valproic Acid Blood Type Blood Type Recheck Antibody Screen Crossmatch 01/23/19 01/23/19 01/23/19 00:14 04:30 04:30 WBC 16.88 H RBC 3.39 L Hgb 9.6 L Hct 28.0 L MCV 82.6 MCH 28.3 MCHC 34.3 RDW Std Deviation 46.5 H RDW Coeff of Migel 15.5 H Plt Count 309 MPV 9.4 Immature Gran % (Auto) 0.4 Neut % (Auto) 77.1 Lymph % (Auto) 11.6 [place] % (Auto) 10.7 Eos % (Auto) 0.1 Baso % (Auto) 0.1 Immature Gran # (Auto) 0.06 H Neut # (Auto) 13.02 H Lymph # (Auto) 1.96 [place] # (Auto) 1.80 H Eos # (Auto) 0.02 Baso # (Auto) 0.02 Ovalocytes PT INR APTT PTT Ratio Sodium 134 L Potassium 3.9 D Chloride 106 Carbon Dioxide 23 Anion Gap 5.0 BUN 18 Creatinine 0.48 L Est Cr Clr Drug Dosing 97.0 Est GFR ( Amer) 128.5 Est GFR (Non-Af Amer) 110.9 BUN/Creatinine Ratio 36.9 H Glucose 83 POC Glucose Lactate Calcium 7.4 L Phosphorus 2.5 Magnesium 2.3 Total Bilirubin AST ALT Alkaline Phosphatase Ammonia Total Protein Albumin Globulin Albumin/Globulin Ratio Procalcitonin Urine Color Urine Appearance Urine pH Ur Specific Roy Urine Protein Urine Glucose (UA) Urine Ketones Urine Blood Urine Nitrite Urine Bilirubin Urine Urobilinogen Ur Leukocyte Esterase Nasal Screen MRSA (PCR) Valproic Acid 46 L Blood Type Blood Type Recheck Antibody Screen Crossmatch 01/23/19 06:32 WBC RBC Hgb Hct MCV MCH MCHC RDW Std Deviation RDW Coeff of Migel Plt Count MPV Immature Gran % (Auto) Neut % (Auto) Lymph % (Auto) [place] % (Auto) Eos % (Auto) Baso % (Auto) Immature Gran # (Auto) Neut # (Auto) Lymph # (Auto) [place] # (Auto) Eos # (Auto) Baso # (Auto) Ovalocytes PT INR APTT PTT Ratio Sodium Potassium Chloride Carbon Dioxide Anion Gap BUN Creatinine Est Cr Clr Drug Dosing Est GFR ( Amer) Est GFR (Non-Af Amer) BUN/Creatinine Ratio Glucose POC Glucose 106 H Lactate Calcium Phosphorus Magnesium Total Bilirubin AST ALT Alkaline Phosphatase Ammonia Total Protein Albumin Globulin Albumin/Globulin Ratio Procalcitonin Urine Color Urine Appearance Urine pH Ur Specific Roy Urine Protein Urine Glucose (UA) Urine Ketones Urine Blood Urine Nitrite Urine Bilirubin Urine Urobilinogen Ur Leukocyte Esterase Nasal Screen MRSA (PCR) Valproic Acid Blood Type Blood Type Recheck Antibody Screen Crossmatch Medications Administered Home Medications Dairy Relief 9,000 unit PO QID 09/09/18 [History Confirmed 01/22/19] acetaminophen [Acetaminophen Extra Strength] 1,000 mg PO Q8H PRN 09/09/18 [History Confirmed 01/22/19] albuterol sulfate [Ventolin HFA] 2 puff INHALATION QID PRN 09/09/18 [History Confirmed 01/22/19] aspirin [Aspirin Low Dose] 81 mg PO QAM 09/09/18 [History Confirmed 01/22/19] benztropine 0.5 mg PO BID 09/09/18 [History Confirmed 01/22/19] calcium carbonate [Calcium Antacid] 200 - 400 mg PO DAILY 09/09/18 [History Confirmed 01/22/19] divalproex 250 mg PO BID 09/09/18 [History Confirmed 01/22/19] guaifenesin [Mucinex] 600 mg PO BID PRN 09/09/18 [History Confirmed 01/22/19] metoprolol succinate 12.5 mg PO QAM 09/09/18 [History Confirmed 01/22/19] omeprazole 40 mg PO QAM 09/09/18 [History Confirmed 01/22/19] quetiapine 400 mg PO QPM 09/09/18 [History Confirmed 01/22/19] ranitidine HCl 150 mg PO BID 09/09/18 [History Confirmed 01/22/19] risperidone 2 mg PO BID 09/09/18 [History Confirmed 01/22/19] trazodone 100 mg PO HS 09/09/18 [History Confirmed 01/22/19] Preparation H 1 applic TX TID PRN 10/16/18 [History Confirmed 01/22/19] loperamide [Imodium A-D] 2 mg PO UD PRN MDD 4 caplets/24 Hours 10/16/18 [History Confirmed 01/22/19] ipratropium bromide 0.5 mg NEB Q6R PRN #75 ml 10/19/18 [Rx Confirmed 01/22/19] potassium chloride 10 meq PO BID 10/28/18 [History Confirmed 01/22/19] alum-mag hydroxide-simeth [Rulox] 10 ml PO Q4H PRN 01/06/19 [History Confirmed 01/22/19] diphenhydramine HCl [Banophen] 25 mg PO HS PRN 01/06/19 [History Confirmed 01/22/19] psyllium seed (sugar) [Reguloid] 1 tsp PO DAILY PRN 01/06/19 [History Confirmed 01/22/19] polyethylene glycol 3350 [Miralax] 17 gm PO DAILY PRN 01/22/19 [History Confirmed 01/22/19] Active Medications Benztropine Mesylate (Cogentin) 0.5 mg PO BID [facility] Stop: 02/21/19 20:59 Last Admin: 01/23/19 09:13 Dose: 0.5 mg Documented by: Divalproex Sodium (Depakote Delay Release) 250 mg PO BID [facility] Stop: 02/21/19 20:59 Last Admin: 01/23/19 09:14 Dose: 250 mg Documented by: Heparin Sodium (Porcine) (Heparin Sodium (Porcine)) 5,000 units SQ Q8 [facility] Stop: 02/22/19 13:59 Sodium Chloride (Nss) 250 mls @ 15 mls/hr IV .[id number] PRN PRN Reason: For Transfusion Stop: 02/21/19 10:11 Dextrose/Lactated Ringer's (D5w And Lactated Ringers) 1,000 mls @ 60 mls/hr IV .[id number] [facility] Stop: 02/22/19 02:59 Last Infusion: 01/23/19 03:45 Dose: 60 mls/hr Documented by: Pantoprazole Sodium 40 mg/ (Syringe) 10 mls @ 5 mls/min IV BID@0900,2100 [facility] Stop: 02/22/19 10:14 Ipratropium Cosmos (Atrovent 0.02% 0.5mg/2.5ml) 0.5 mg INH Q6R PRN PRN Reason: SHORTNESS OF BREATH OR WHEEZIN Stop: 02/21/19 13:27 Levalbuterol HCl (Xopenex 0.63 Mg/3 Ml Neb) 0.63 mg NEB Q6R PRN PRN Reason: Shortness Of Breath Or Wheezing Stop: 02/21/19 13:27 Metoprolol Succinate (Toprol Xl) 25 mg PO QAM [facility] Stop: 02/22/19 00:14 Last Admin: 01/23/19 09:19 Dose: 25 mg Documented by: Miscellaneous (Icu Protocol For Hyperglycemia) 1 ea N/A PRN PRN; Protocol PRN Reason: Hyperglycemia Protocol Stop: 01/24/19 13:27 Miscellaneous (Remove Nicoderm Patch) 1 ea N/A HS [facility] Stop: 02/22/19 20:59 Nicotine ([facility]oderm Cq) [facility] Stop: 02/21/19 22:14 Last Admin: 01/22/19 22:37 Dose: 14 mg Documented by: Quetiapine Fumarate (Seroquel) 400 mg PO DAILY [facility] Stop: 02/21/19 19:29 Last Admin: 01/23/19 09:14 Dose: 400 mg Documented by: Risperidone (Risperdal) 2 mg PO BID [facility] Stop: 02/21/19 20:59 Last Admin: 01/23/19 09:14 Dose: 2 mg Documented by: Trazodone HCl (Desyrel) 100 mg PO QPM [facility] Stop: 02/21/19 20:59 Last Admin: 01/22/19 20:13 Dose: 100 mg Documented by:
[2019-01-23] MEDS: BENZTROPINE MESYLATE 1 MG TAB PO SCH ×2 (09:13→20:39)
[2019-01-23] MEDS: DIVALPROEX DELAY RELEASE 250 MG TABEC PO SCH ×2 (09:14→20:40)
[2019-01-23] MEDS: risperiDONE 2 MG TABLET PO SCH ×2 (09:14→20:41)
[2019-01-23] MEDS: QUETIAPINE FUMARATE 200 MG TAB PO SCH (09:14)
[2019-01-23] MEDS: METOPROLOL SUCC 25MG EXT REL TAB PO SCH (09:19)
[2019-01-23] MEDS ORDERED: POTASSIUM CHLORIDE 10 MEQ TABCR PO STA (09:39)
[2019-01-23] MEDS: PANTOprazole 40 MG in SYRINGE 0 ML IV SCH ×2 (12:26→20:42)
--- NOTE | 2019-01-23 12:56 | Gastroenterology Progress Note ---
Date of Service January 23, 2019 Assessment & Plan (1) Coffee ground emesis: Pt is a 73 y/o male w hx of Kevin's and dx of esophageal adenocarcinoma in Novemberwho presented with coffee grounds and Hb 7.2. He recieved 2 units of blood and Hb is stable post tranfsusion at 9.6 and no current gross GI bleeding. Expect some ongoing slow GI bleeding from the malignant tumor. Plan for OP endoscopic mucosal resection by Dr. Morejon in [place] as previously planned. DC PPI drip. Begin BID PPI. GI will sign off. Please notify us if new/worsening GI issues. (2) Esophageal cancer: (3) Kevin esophagus: Supervising Physician Co-Signing Physician Notes I have personally seen and examined the patient with SYDNIE Valentine. Her note reflects my exam and findings. I agree with her impression and plan. Pt should remain on BID PPI as out patient. He needs to follow up with Dr. Morejon in [place] for tumor treatment once discharged. Luis Antonio Mcclure M.D. Subjective Mr. Bailey is a 73 yr old male with a GE malignancy who was brought from [facility] for coffee grounds emesis. Hb 7.2 on arrival 01/22, received 2 units of blood, Hb 9.6 today. No gross bleeding in the past 24 hrs. Constitutional: as per Subjective / HPI Ear, Nose, Mouth, Throat: as per Subjective / HPI Respiratory: + cough; no dyspnea Gastrointestinal: as per Subjective / HPI Physical Exam Vital Signs (Past 24 Hours): Last Vital Signs Temp 36.6 C 01/23/19 12:00 Pulse 108 H 01/23/19 12:01 Resp 28 H 01/23/19 12:01 BP 116/81 01/23/19 12:01 Pulse Ox 93 01/23/19 12:01 Constitutional: WD/WN, vitals as above Eyes: PERRL, conjunctivae normal, anicteric sclerae ENMT: external ear and nose normal, oropharynx normal Neck: trachea midline, no thyromegaly Respiratory: normal respiratory effort, lungs clear to auscultation Cardiovascular: RRR, no murmur, no edema Gastrointestinal (Abdomen): normal bowel sounds, soft, nontender, no hepatosplenomegaly Skin: no rashes, warm and dry Neurologic: PERRL, EOMI, accommodation nl, no face palsy, no dysarthria Psychiatric: Motor Behavior: n tremor Lymphatic: no cervical or axillary lymphadenopathy
[2019-01-23] MEDS ORDERED: METOPROLOL TARTRATE 1 MG/ML VIAL IV STA (13:24)
--- NOTE | 2019-01-23 15:18 | Hospitalist Progress Note ---
Date of Service January 23, 2019 Assessment & Plan (1) Upper GI bleed: (2) Anemia: Patient is a 73 yr old male with H/O Kevin's, Esophageal adenocarcinoma and other problems presents [facility] for coffee grounds emesis. Acute Upper GI bleeding: In setting of Kevin's, Esophageal adenocarcinoma S/P 2 units PRBC No active bleeding IV Protonix ggt>>IV BID Monitor H&H Planned for outpatient endoscopic mucosal resection by Dr. Morejon in [place] Continue IV fluids (3) Kevin esophagus: (4) History of esophageal cancer: H/O Kevin's esophagus. 11/20/18 EGD: Nodular ulcerated lesion. EUS: Mass lower third esophagus. Biopsies positive for adenocarcinoma. Planned for outpatient endoscopic mucosal resection by Dr. Morejon in [place] (5) Leukocytosis: (6) Elevated lactic acid level: Lactic Acidosis No obvious source of infection IV Abx discontinued Blood Culture: Pending Urine Culture:No growth CXR:Mild chronic interstitial thickening. No acute findings Lactate levels normalized (7) Hypomagnesemia: Resolved monitor (8) COPD (chronic obstructive pulmonary disease): On albuterol or ipratropium. 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 DVT Px: SCDs Re: GI bleed Code Status: Full Code Subjective Patient is seen and examined at bedside No active bleeding issues today Hb:9.6 today Patient denies any chest pain, SOB, abd pain No family at bedside Physical Exam Vital Signs (Past 24 Hours): Last Vital Signs Temp 36.6 C 01/23/19 12:00 Pulse 108 H 01/23/19 12:01 Resp 28 H 01/23/19 12:01 BP 116/81 01/23/19 12:01 Pulse Ox 93 01/23/19 12:01 Physical Exam: Physical Exam: Vitals signs as noted above General Appearance:Thin, no apparent distress Head: normocephalic, Atraumatic Eyes: normal inspection, EOMI Neck: supple, Trachea midline Respiratory/Chest: Normal breath sounds, CTA Cardiovascular: S1, S2, No murmur,+Tachycardia Abdomen/GI:Soft, Non tender, Bowel sounds present Extremities/Musculoskelatal:normal inspection, no edema Neurologic/Psych:grossly no focal neurological deficits Skin: normal color, warm Results & Data Laboratory Results Short CBC 01/22/19 01/22/19 01/23/19 Range/Units 18:27 23:50 04:30 WBC 16.88 H (4.8-10.8) K/uL Hgb 9.7 L 8.9 L 9.6 L (14.0-18.0) g/dL Hct 28.6 L 25.8 L 28.0 L (42-52) % Plt Count 309 (130-400) K/uL BMP 01/22/19 01/23/19 23:50 04:30 Sodium 137 134 L Potassium 3.3 L D 3.9 D Chloride 107 106 Carbon Dioxide 22 23 BUN 24 H D 18 Creatinine 0.51 L D 0.48 L Glucose 83 83 Calcium 7.4 L 7.4 L Liver Function 01/22/19 Range/Units 23:50 Albumin 2.4 L (3.4-5.0) gm/dl
[2019-01-23] MEDS: HEPARIN SOD 5,000 UNIT/0.5 ML VIAL SQ SCH ×2 (15:24→21:59)
[2019-01-23] MEDS ORDERED: METOPROLOL TARTRATE 1 MG/ML VIAL IV ONE (15:28)
[2019-01-23 17:01] LABS: Hematocrit (blood only) 26.3 % (42-52); Hemoglobin 9.1 g/dL (14.0-18.0)
[2019-01-23] MEDS: TRAZODONE HCL 100 MG TAB PO SCH (20:41)
[2019-01-23] MEDS ORDERED: BENZONATATE 100 MG CAPSULE PO PRN (23:07)
[2019-01-23] MEDS ORDERED: HYDROCORTISONE HC 2.5% CRM 30GM TUBE EXT PRN (23:09)
[2019-01-23] MEDS: guaiFENesin 600 MG TABCR PO SCH (23:23)
--- NOTE | 2019-01-23 23:31 | XRay Report ---
SINGLE VIEW CHEST CLINICAL HISTORY: Cough. FINDINGS: An AP, portable, upright chest radiograph is compared to study dated 01/22/2019. The examina tion is significantly degraded by portable technique and patient rotation. The top normal for projec tion, noting atherosclerotic calcification of the thoracic aorta. Emphysema and chronic interstitial thickening are similar to previous. Patchy airspace opacities are seen at the left lung base. No larg e pleural effusion or Pneumothorax is seen. The skeletal structures are osteopenic. The bony thorax i s grossly intact. IMPRESSION: 1. Emphysema. 2. Patchy airspace opacities are noted at the left lung base. Correlate clinically for evidence of pn eumonia/aspiration pneumonitis. Radiographic follow-up to resolution is recommended. Electronically signed by: Kofi Fitzpatrick M.D. 01/23/2019 11:30 PM
--- NOTE | 2019-01-24 00:02 | Critical Care Progress Note ---
Date of Service January 24, 2019 Supervising Physician Co-Signing Physician Notes Reason Critically Ill: 73-year-old female with coffee-ground emesis with tachycardia and lactic acid acidosis PLAN: Neuro: History paranoid schizophrenia -Divalproex Delayed Release 250mg BID -Quetiapine 400mg daily -Risperidone 2mg BID -Trazodone 100 mg nightly Resp: Tachypnea: Resolved Tobacco abuse Likely COPD changes -Smoking cessation education CV: Tachycardia: Improved -Metoprolol succinate increased to 25 mg daily Fluids/Renal: Lactic acid acidosis: Resolved Acute kidney injury: Resolved -Creatinine returned to baseline Hyponatremia -Reviewed nephrology recommendations -Thyroid studies within normal limits -Urine chemistries and osmolality still pending -No significant change in medications recently question increase free water intake ID: Discontinuing antibiotics GI/Nutrition: Severe protein calorie malnutrition -Hypoalbuminemia, anemia, Sarcopena Regular diet Kevin's esophagus Possible gastrointestinal hemorrhage -Continue to observe H&H -Convert PPI infusion to twice daily -Reviewed GI consultation: No intervention indicated at this time Heme: Chronic anemia Acute blood loss anemia -Transfused 2 units with appropriate response continue to trend H&H DVT prophylaxis: SCDs, adding heparin 5000 twice daily for chemical prophylaxis Endocrine: ICU hyperglycemia protocol TSH within normal limits Vascular access: Peripheral IVs Code Status: Full: I confirmed this with the patient and discussed risks and benefits. Patient remains stable for downgrade out of ICU. Subjective No overnight events. Physical Exam Vital Signs (Past 24 Hours): Last Vital Signs Temp 37.2 C 01/23/19 20:01 Pulse 108 H 01/23/19 22:01 Resp 21 01/23/19 22:01 BP 111/86 01/23/19 22:01 Pulse Ox 89 L 01/23/19 22:01 General: Alert. nontoxic. Skin: Warm, dry, Head: Atraumatic Ears, nose, mouth and throat: airway patent Cardiovascular: Normal peripheral perfusion Respiratory: no respiratory distress Gastrointestinal: Non distended Musculoskeletal: No deformity Results & Data Laboratory Results 01/24/19 01/24/19 01/24/19 Range/Units 11:14 11:14 11:14 WBC (4.8-10.8) K/uL RBC (4.7-6.1) M/uL Hgb (14.0-18.0) g/dL Hct (42-52) % MCV (80-100) fL MCH (25-34) pg MCHC (32-36) g/dL RDW Std Deviation (36.4-46.3) fL RDW Coeff of Migel (11.5-14.5) % Plt Count (130-400) K/uL MPV (7.4-10.4) fL Immature Gran % (Auto) % Neut % (Auto) % Lymph % (Auto) % [place] % (Auto) % Eos % (Auto) % Baso % (Auto) % Immature Gran # (Auto) (0.00-0.02) K/uL Neut # (Auto) (1.4-6.5) K/uL Lymph # (Auto) (1.2-3.4) K/uL [place] # (Auto) (0.11-0.59) K/uL Eos # (Auto) (0-0.5) K/uL Baso # (Auto) (0-0.2) K/uL Echinocytes Sodium 120 L (136-145) mmol/L Potassium 3.5 (3.5-5.1) mmol/L Chloride 89 L (98-107) mmol/L Carbon Dioxide 23 (21-32) mmol/L Anion Gap 8.0 (3-11) BUN 12 (7-18) mg/dl Creatinine 0.39 L (0.6-1.4) mg/dl Est Cr Clr Drug Dosing 109.6 ml/min Est GFR ( Amer) 140.0 Est GFR (Non-Af Amer) 120.8 BUN/Creatinine Ratio 30.2 H (10-20) Glucose 125 H (70-99) mg/dl Osmolality Pending Calcium 7.3 L (8.5-10.1) mg/dl Phosphorus (2.5-4.9) mg/dl Magnesium (1.8-2.4) mg/dl TSH 2.040 (0.300-4.500) uIu/ml 01/24/19 01/24/19 01/23/19 Range/Units 04:09 04:09 16:49 WBC 14.95 H (4.8-10.8) K/uL RBC 3.03 L (4.7-6.1) M/uL Hgb 8.5 L 9.1 L (14.0-18.0) g/dL Hct 24.3 L 26.3 L (42-52) % MCV 80.2 (80-100) fL MCH 28.1 (25-34) pg MCHC 35.0 (32-36) g/dL RDW Std Deviation 45.9 (36.4-46.3) fL RDW Coeff of Migel 15.7 H (11.5-14.5) % Plt Count 281 (130-400) K/uL MPV 8.9 (7.4-10.4) fL Immature Gran % (Auto) 0.7 % Neut % (Auto) 76.6 % Lymph % (Auto) 15.2 % [place] % (Auto) 7.2 % Eos % (Auto) 0.2 % Baso % (Auto) 0.1 % Immature Gran # (Auto) 0.10 H (0.00-0.02) K/uL Neut # (Auto) 11.46 H (1.4-6.5) K/uL Lymph # (Auto) 2.27 (1.2-3.4) K/uL [place] # (Auto) 1.08 H (0.11-0.59) K/uL Eos # (Auto) 0.03 (0-0.5) K/uL Baso # (Auto) 0.01 (0-0.2) K/uL Echinocytes 1+ Sodium 123 L D (136-145) mmol/L Potassium 3.8 (3.5-5.1) mmol/L Chloride 93 L (98-107) mmol/L Carbon Dioxide 22 (21-32) mmol/L Anion Gap 8.0 (3-11) BUN 13 (7-18) mg/dl Creatinine 0.35 L (0.6-1.4) mg/dl Est Cr Clr Drug Dosing 133.1 ml/min Est GFR ( Amer) 146.3 Est GFR (Non-Af Amer) 126.3 BUN/Creatinine Ratio 35.8 H (10-20) Glucose 92 (70-99) mg/dl Osmolality Calcium 7.3 L (8.5-10.1) mg/dl Phosphorus 3.2 (2.5-4.9) mg/dl Magnesium 1.4 L (1.8-2.4) mg/dl TSH (0.300-4.500) uIu/ml
[2019-01-24 04:31] LABS: Basophils # (auto) 0.01 K/uL (0-0.2); Basophils % (auto) 0.1 %; Eosinophils # (auto) 0.03 K/uL (0-0.5); Eosinophils % (auto) 0.2 %; Hematocrit (blood only) 24.3 % (42-52); Hemoglobin 8.5 g/dL (14.0-18.0); Immature Granulocytes % (auto) 0.7 %; Lymphocytes # (auto) 2.27 K/uL (1.2-3.4); Lymphocytes % (auto) 15.2 %; Mean Corpuscular Volume 80.2 fL (80-100); Mean Platelet Volume 8.9 fL (7.4-10.4); Monocytes # (auto) 1.08 K/uL (0.11-0.59); Monocytes % (auto) 7.2 %; Neutrophils # (auto) 11.46 K/uL (1.4-6.5); Neutrophils % (auto) 76.6 %; Platelet Count 281 K/uL (130-400); RDW Coefficient of Variation 15.7 % (11.5-14.5); RDW Standard Deviation 45.9 fL (36.4-46.3); Red Blood Count 3.03 M/uL (4.7-6.1); White Blood Count 14.95 K/uL (4.8-10.8)
[2019-01-24 04:52] LABS: BUN Creatinine Ratio 35.8 (10-20); Calcium 7.3 mg/dl (8.5-10.1); Creatinine Clr Calc Pharmacy 133.1 ml/min; Est GFR (African American) 146.3; Est GFR (Non-African American) 126.3; Magnesium 1.4 mg/dl (1.8-2.4); Phosphorus 3.2 mg/dl (2.5-4.9); Potassium 3.8 mmol/L (3.5-5.1)
[2019-01-24] MEDS: HEPARIN SOD 5,000 UNIT/0.5 ML VIAL SQ SCH ×3 (05:05→21:44)
[2019-01-24 05:07] LABS: Echinocytes 1+
[2019-01-24] MEDS: guaiFENesin 600 MG TABCR PO SCH ×2 (07:28→21:41)
[2019-01-24] MEDS: BENZTROPINE MESYLATE 1 MG TAB PO SCH ×2 (07:28→21:40)
[2019-01-24] MEDS: DIVALPROEX DELAY RELEASE 250 MG TABEC PO SCH ×2 (07:28→21:41)
[2019-01-24] MEDS: METOPROLOL SUCC 25MG EXT REL TAB PO SCH (07:28)
[2019-01-24] MEDS: QUETIAPINE FUMARATE 200 MG TAB PO SCH (07:30)
[2019-01-24] MEDS: NICOTINE 14 MG/24 HR PATCH TD SCH (07:30)
[2019-01-24] MEDS: risperiDONE 2 MG TABLET PO SCH ×2 (07:31→21:43)
[2019-01-24] MEDS: PANTOprazole 40 MG in SYRINGE 0 ML IV SCH ×2 (07:35→21:42)
[2019-01-24] MEDS: MAGNESIUM SULFATE / D5W 1 GM/100 ML BAG IV SCH ×2 (08:41→09:41)
--- NOTE | 2019-01-24 10:31 | Nephrology Consultation ---
Date of Consultation January 24, 2019 Assessment & Plan (1) Hyponatremia: acute but so far asymptomatic hyponatremia acute change from 134 > 123 in 24 hrs; and dropped further to 120 seven hrs after that >> suspect polydipsia versus less likely low solute diet -recheck bmp as well as serum osms, TFTs, urine studies all ordered stat -hospital lab osmolality detector has been offline so some of these studies may be sent out/delayed>> it is my opinion at this point that we can manage him safely here w/o immediate osmolality assay results -keep him icu status -ordered seizure precautions and nursing to call me if acute MS or neuro changes >>>ordered 3% saline 100 mL to run over 20 min x 1 stat then wait 30 min and recheck bmp; likely to need repeat infusions depending on labs -ordered CXR to ensure no change in volume status -will give K po 40 mEq x 1 -ordered 1L FR (though he's already surpassed this today)>> may have an extra 400 mL fluid today still w/ supper/further meds -will try to hold off on franco or on central line for now -care coordinated w/ Jamison Morfin Present on Admission?: No (2) Hypomagnesemia: he received 2 gm IV mag this am -recheck in am Present on Admission?: No History of Present Illness Reason for Consultation: hyponatremia Requesting Physician: Dr Swift Attending Physician: Yahir Swift MD History of Present Illness 73 y/o M whom I'm asked to see for hyponatremia. His sNa this am was 123 at 0400, down from 134 yesterday am. I rechecked it at 11> sNa went to 120. K 3.5 at 11. He was admitted here to the ICU 01/22 for UGI bleed after presenting with coffee ground emesis, hypotension, tachycardia. PMH includes esophageal cancer found 11/2018, Barretts esophagus, paranoid schizophrenia, htn, copd, presumed chronic aspiration. His presenting hgb was 7.2, lactate 5, wbc 15; sodium 137, creat 0.5. His sodium trended down to 134 then 123 today, creatinine has remained 0.4-0.5. His lactate normalized on 01/22; WBC have remained mid/ high teens. he had 2 units pRBC and hgb has been running in 9s; he has been otherwise stable. GI has signed off w/ OP endoscopic mucosal resection at [facility] planned in near future. He is not on new meds or meds commonly associated w/ hyponatremia. Nursing notes he has been very thirsty, asking for frequent refills of water jugs. Diet just advanced by speech off of liquid diet. Allergies Allergy/AdvReac Type Severity Reaction Status Date / Time buspirone Allergy Unknown Verified 01/22/19 10:35 clonazepam Allergy Unknown unknown Verified 01/22/19 10:35 clozapine Allergy Unknown Verified 01/22/19 10:35 Home Medications Home Medications Medication Instructions Recorded Confirmed Type Dairy Relief 9,000 unit PO QID 09/09/18 01/22/19 History acetaminophen [Acetaminophen Extra 1,000 mg PO Q8H PRN 09/09/18 01/22/19 History Strength] albuterol sulfate [Ventolin HFA] 2 puff INHALATION QID PRN 09/09/18 01/22/19 History aspirin [Aspirin Low Dose] 81 mg PO QAM 09/09/18 01/22/19 History benztropine 0.5 mg PO BID 09/09/18 01/22/19 History calcium carbonate [Calcium Antacid] 200 - 400 mg PO DAILY 09/09/18 01/22/19 History divalproex 250 mg PO BID 09/09/18 01/22/19 History guaifenesin [Mucinex] 600 mg PO BID PRN 09/09/18 01/22/19 History metoprolol succinate 12.5 mg PO QAM 09/09/18 01/22/19 History omeprazole 40 mg PO QAM 09/09/18 01/22/19 History quetiapine 400 mg PO QPM 09/09/18 01/22/19 History ranitidine HCl 150 mg PO BID 09/09/18 01/22/19 History risperidone 2 mg PO BID 09/09/18 01/22/19 History trazodone 100 mg PO HS 09/09/18 01/22/19 History Preparation H 1 applic SD TID PRN 10/16/18 01/22/19 History loperamide [Imodium A-D] 2 mg PO UD PRN MDD 4 caplets/24 10/16/18 01/22/19 History Hours ipratropium bromide 0.5 mg NEB Q6R PRN #75 ml 10/19/18 01/22/19 Rx potassium chloride 10 meq PO BID 10/28/18 01/22/19 History alum-mag hydroxide-simeth [Rulox] 10 ml PO Q4H PRN 01/06/19 01/22/19 History diphenhydramine HCl [Banophen] 25 mg PO HS PRN 01/06/19 01/22/19 History psyllium seed (sugar) [Reguloid] 1 tsp PO DAILY PRN 01/06/19 01/22/19 History polyethylene glycol 3350 [Miralax] 17 gm PO DAILY PRN 01/22/19 01/22/19 History Patient History Medical History History of esophageal cancer (Chronic) 11/20/18 EGD: Nodular ulcerated lesion. EUS: Mass lower third esophagus. Biopsies positive for adenocarcinoma. Paranoid schizophrenia (Chronic) COPD (chronic obstructive pulmonary disease) (Chronic) HTN (hypertension) (Chronic) GERD (gastroesophageal reflux disease) (Chronic) Tobacco abuse (Chronic) Kevin esophagus (Chronic) Surgical History History of esophagogastroduodenoscopy (EGD) (Chronic) History of skin graft (Chronic) as child History of bowel resection (Chronic) "for diverticulitis " in 2009 Family History Mother Stroke Thyroid disorder Father Heart attack Other Heart disease Social History Communication Ability: Effective Beliefs That Will Affect Care: None Current Living Situation: Personal Care Facility Current Living Situation Comment: [facility] Feels Safe at Home: Yes Safety Concerns: Feels Safe At This Time Smoking Status: Current every day smoker Hx Alcohol Use: No Hx Substance Use: No Review of Systems Constitutional: + fatigue, + weakness and + anorexia Eyes: no worsening vision Ear, Nose, Mouth, Throat: no dry mouth Respiratory: no dyspnea clears throat frequently / constantly Cardiovascular: no chest pain, no palpitations and no edema Gastrointestinal: as per Subjective / HPI; no abdominal pain Genitourinary (Male): no difficulty urinating and no urinary hesitancy nursing notes decreased uop about 250 mL this shift pt did spill some Musculoskeletal: no joint pain and no myalgia Integumentary: no rash and no non-healing lesions Neurologic: no numbness and no radiating pain Psychiatric: no behavioral changes and no confusion Endocrine: + fatigue and + polydipsia Hematologic / Lymphatic: no easy bleeding Physical Exam Vital Signs (Past 24 Hours): Last Vital Signs Temp 37.1 C 01/24/19 04:00 Pulse 92 H 01/24/19 06:05 Resp 20 01/24/19 06:05 BP 113/76 01/24/19 06:05 Pulse Ox 92 01/24/19 06:05 Constitutional: + cachectic and + disheveled; no acute distress on 02nc Eyes: EOM intact bilaterally ENMT: Mouth: + tongue abnormality (thick; protrudes from mouth often) hoarse voice; clears throat nonstop Neck: no nuchal rigidity Respiratory: able to speak in complete sentences (but hard to understand d/t tongue/throat clearing) and + prolonged expiratory phase; no respiratory distress, no labored breathing and no paradoxical thoraco-abdominal movemnt Auscultation: + diminished lung sounds; no crackles and no wheezes Cardiovascular: Rate/Rhythm: + tachycardic Extremities: no edema Gastrointestinal (Abdomen): Inspection/Auscultation: + abdomen distended and normal bowel sounds Percussion/Palpation: + abdomen tender (minimal periumbi lical) and abdomen soft Musculoskeletal: mcgill, fluent though challenging to understand speech Skin: no rashes, warm and dry Neurologic: awake, interactive; asks appropriate/logical questions, difficult to understand speech (mechanical), mcgill Psychiatric: Orientation: oriented x 3 Affect: + flat affect Thought Process: linear/logical thought process tired/ dosing Genitourinary: no franco Results & Data Laboratory Results Abnormal lab results 01/23/19 01/24/19 01/24/19 Range/Units 16:49 04:09 04:09 WBC 14.95 H (4.8-10.8) K/uL RBC 3.03 L (4.7-6.1) M/uL Hgb 9.1 L 8.5 L (14.0-18.0) g/dL Hct 26.3 L 24.3 L (42-52) % RDW Coeff of Migel 15.7 H (11.5-14.5) % Immature Gran # (Auto) 0.10 H (0.00-0.02) K/uL Neut # (Auto) 11.46 H (1.4-6.5) K/uL [place] # (Auto) 1.08 H (0.11-0.59) K/uL Sodium 123 L D (136-145) mmol/L Chloride 93 L (98-107) mmol/L Creatinine 0.35 L (0.6-1.4) mg/dl BUN/Creatinine Ratio 35.8 H (10-20) Calcium 7.3 L (8.5-10.1) mg/dl Magnesium 1.4 L (1.8-2.4) mg/dl
[2019-01-24 11:58] LABS: BUN Creatinine Ratio 30.2 (10-20); Calcium 7.3 mg/dl (8.5-10.1); Creatinine Clr Calc Pharmacy 109.6 ml/min; Est GFR (Non-African American) 120.8; Potassium 3.5 mmol/L (3.5-5.1)
[2019-01-24] MEDS ORDERED: SODIUM CHLORIDE 3 % 100 ML IV STA ×3 (14:16→19:46)
[2019-01-24] MEDS ORDERED: POTASSIUM CHLORIDE 20 MEQ TABCR PO STA (14:45)
--- NOTE | 2019-01-24 15:02 | Hospitalist Progress Note ---
Date of Service January 24, 2019 Assessment & Plan (1) Upper GI bleed: (2) Anemia: Patient is a 73 yr old male with H/O Kevin's, Esophageal adenocarcinoma and other problems presents [facility] for coffee grounds emesis. Acute Upper GI bleeding: In setting of Kevin's, Esophageal adenocarcinoma S/P 2 units PRBC No active bleeding IV Protonix ggt>>IV BID Monitor H&H Planned for outpatient endoscopic mucosal resection by Dr. Morejon in [place] Received IV fluids (3) Kevin esophagus: (4) History of esophageal cancer: H/O Kevin's esophagus. 11/20/18 EGD: Nodular ulcerated lesion. EUS: Mass lower third esophagus. Biopsies positive for adenocarcinoma. Planned for outpatient endoscopic mucosal resection by Dr. Morejon in [place] Hyponatremia: Sodium levels:135>>>120 Asymptomatic Likely due to Polydipsia Urine Studies pending Fluid restriction 3% Saline as per Nephrology Seizure precautions Monitor sodium levels closely Appreciate Nephrology Input (5) Leukocytosis: (6) Elevated lactic acid level: Lactic Acidosis No obvious source of infection IV Abx discontinued Blood Culture: No growth to date Urine Culture:No growth CXR:Mild chronic interstitial thickening. No acute findings Lactate levels normalized (7) Hypomagnesemia: Resolved monitor (8) COPD (chronic obstructive pulmonary disease): On albuterol or ipratropium. 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 DVT Px: SCDs Re: GI bleed Code Status: Full Code Subjective Patient is seen and examined at bedside No acute bleeding issues Denies chest pain, SOB, dizziness Has Chronic cough Sodium levels dropped to 120 No mental status change currently Speech eval done Physical Exam Vital Signs (Past 24 Hours): Last Vital Signs Temp 36.9 C 01/24/19 11:00 Pulse 106 H 01/24/19 11:00 Resp 25 H 01/24/19 11:00 BP 110/68 01/24/19 11:00 Pulse Ox 91 01/24/19 11:00 Physical Exam: Physical Exam: Vitals signs as noted above General Appearance:Thin, no apparent distress Head: normocephalic, Atraumatic Eyes: normal inspection, EOMI Neck: supple, Trachea midline Respiratory/Chest: Normal breath sounds, CTA Cardiovascular: S1, S2, No murmur,+Tachycardia Abdomen/GI:Soft, Non tender, Bowel sounds present Extremities/Musculoskelatal:normal inspection, no edema Neurologic/Psych:grossly no focal neurological deficits Skin: normal color, warm Results & Data Laboratory Results Short CBC 01/23/19 01/24/19 Range/Units 16:49 04:09 WBC 14.95 H (4.8-10.8) K/uL Hgb 9.1 L 8.5 L (14.0-18.0) g/dL Hct 26.3 L 24.3 L (42-52) % Plt Count 281 (130-400) K/uL BMP 01/24/19 01/24/19 04:09 11:14 Sodium 123 L D 120 L Potassium 3.8 3.5 Chloride 93 L 89 L Carbon Dioxide 22 23 BUN 13 12 Creatinine 0.35 L 0.39 L Glucose 92 125 H Calcium 7.3 L 7.3 L
--- NOTE | 2019-01-24 15:36 | XRay Report ---
SINGLE VIEW CHEST CLINICAL HISTORY: Hyponatremia. Polydipsia. FINDINGS: 2 AP, portable, upright chest radiographs are compared to study dated 01/23/2019. The examin ation is significantly degraded by portable technique and patient rotation. The heart is top normal for projection, noting atherosclerotic calcification of the thoracic aorta. Pulmonary vasculature is noncongested. Emphysema and chronic interstitial thickening are similar to previous. Patchy airspace consolidation at the left lung base has increased from previous. There is a small left pleural effusi on. No pneumothorax is seen. The skeletal structures are osteopenic. The bony thorax is grossly intac t. There is apparent air seen below the right hemidiaphragm. IMPRESSION: 1. Emphysema. 2. There is increasing airspace consolidation at the left lung base with a small pleural effusion. Th e appearance is typical for pneumonia/aspiration pneumonitis. Radiographic follow-up to resolution is recommended. 3. There is questionable air below the right hemidiaphragm, which is likely artifactual. If there is clinical concern for intraperitoneal free air then correlation with a decubitus abdominal radiograph is recommended. Electronically signed by: Kofi Fitzpatrick M.D. 01/24/2019 3:35 PM
[2019-01-24 16:08] LABS: Hematocrit (blood only) 25.2 % (42-52); Hemoglobin 8.9 g/dL (14.0-18.0)
[2019-01-24 16:31] LABS: BUN Creatinine Ratio 38.3 (10-20); Calcium 7.3 mg/dl (8.5-10.1); Creatinine Clr Calc Pharmacy 129.5 ml/min; Est GFR (African American) 149.9; Est GFR (Non-African American) 129.3; Potassium 3.8 mmol/L (3.5-5.1)
[2019-01-24 18:42] LABS: BUN Creatinine Ratio 29.2 (10-20); Calcium 7.5 mg/dl (8.5-10.1); Creatinine Clr Calc Pharmacy 109.6 ml/min; Est GFR (Non-African American) 120.8; Potassium 4.1 mmol/L (3.5-5.1)
[2019-01-24] MEDS ORDERED: MAGNESIUM SULFATE / D5W 1 GM/100 ML BAG IV ONE (19:42)
[2019-01-24] MEDS ORDERED: PIPERACILL/TAZOBAC CONSULT ACTIVE PRN (19:53)
--- NOTE | 2019-01-24 19:54 | Hospitalist Progress Note ---
Date of Service January 24, 2019 Subjective Overnight developments : 01/24/19 Patient noted to be persistently tachycardic last night with intermittent fever spikes. Chest x-ray 01/23, 01/24 showed persistent infiltrate left Zosyn started for possible HAP/aspiration pneumonia given emesis symptoms on admission. Blood cultures redrawn. 11 PM -patient noted to be hypotensive. IV Vancomycin added to regimen for HAP. Decadron given for possible adrenal insufficiency given hyponatremia. IV albumin given for fluid resuscitation instead of crystalloid given earlier hyponatremia issues. Levophed initiated. 01/25/19 Hemoglobin noted to drop to 7 from 8.9 (01/24) Lactic acid noted to be normal. Patient noted to be disoriented and lethargic at bedside. Vague abdominal discomfort noted earlier as per patient as per RN. No overt GI bleed noted as per RN. Stool Hemoccult done by undersigned at bedside yielded yellow stool, FOBT negative. PPI drip initiated for possible ongoing UGI B as cause of hemoglobin drop. Patient kept n.p.o. 1 unit packed RBC transfused. CT abdomen pelvis initial read bibasilar opacities left within the right. No free air or significant free fluid. Moderate colonic stool retention. Will relay developments to AM providers. Physical Exam Vital Signs (Past 24 Hours): Last Vital Signs Temp 36.8 C 01/24/19 15:00 Pulse 126 H 01/24/19 19:00 Resp 22 01/24/19 19:00 BP 131/90 01/24/19 19:00 Pulse Ox 97 01/24/19 19:00
[2019-01-24] MEDS ORDERED: PIPERACILLIN/TAZOBACTAM 4.5 GM/120 ML BAG IV ONE (20:15)
[2019-01-24] MEDS ORDERED: ALBUMIN 25% 50 ML IV ONE ×2 (20:20→23:21)
[2019-01-24 21:00] LABS: BUN Creatinine Ratio 24.8 (10-20); Calcium 7.2 mg/dl (8.5-10.1); Creatinine Clr Calc Pharmacy 97.1 ml/min; Est GFR (African American) 133.2; Est GFR (Non-African American) 114.9; Potassium 4.1 mmol/L (3.5-5.1)
[2019-01-24] MEDS: TRAZODONE HCL 100 MG TAB PO SCH (21:41)
[2019-01-24] MEDS ORDERED: VANCOMYCIN CONSULT ACTIVE PRN (23:27)
[2019-01-24] MEDS ORDERED: ACETAMINOPHEN 65 ML IV ONE (23:30)
[2019-01-24] MEDS ORDERED: DEXAMETHASONE SOD PHOSPHATE 4 MG in SYRINGE 0 ML IV ONE (23:30)
[2019-01-24] MEDS ORDERED: VANCOMYCIN HCL 1,000 MG in SODIUM CHLORIDE 0.9% 250 ML IV ONE (23:45)
[2019-01-25] MEDS ORDERED: ALBUMIN 25% 50 ML IV ONE (01:11)
[2019-01-25] MEDS ORDERED: DEXAMETHASONE SOD PHOSPHATE 4 MG in SYRINGE 0 ML IV ONE (01:15)
[2019-01-25] MEDS: NOREPINEPHRINE BIT INJ 8 MG in DEXTROSE 5% 500 ML IV SCH (01:23)
[2019-01-25 02:09] LABS: iSTAT Allen Test Pass; iSTAT Arterial Blood Gas HCO3 19 meg/L (19-24); iSTAT Arterial Blood Gas pCO2 29 mmHg (35-46); iSTAT Arterial Blood Gas pH 7.43 (7.35-7.45); iSTAT Carbon Dioxide 20 mEq/l (24-31); iSTAT Site R Radial
[2019-01-25 02:09] LABS: Potassium 3.9 mmol/L (3.5-5.1)
[2019-01-25 02:12] LABS: Albumin Level 2.6 gm/dl (3.4-5.0); BUN Creatinine Ratio 25.9 (10-20); Calcium 6.8 mg/dl (8.5-10.1); Creatinine Clr Calc Pharmacy 99.4 ml/min; Est GFR (African American) 134.5; Phosphorus 3.5 mg/dl (2.5-4.9)
[2019-01-25 02:14] LABS: Bilirubin,Total 0.6 mg/dl (0.2-1); Globulin 2.7 gm/dl (2.5-4.0); Magnesium 2.2 mg/dl (1.8-2.4); Total Protein 5.3 gm/dl (6.4-8.2)
[2019-01-25] MEDS: PIPERACILLIN/TAZOBACTAM 4.5 GM in DEXTROSE 5% 100 ML IV SCH ×3 (02:16→17:56)
[2019-01-25 02:26] LABS: Hematocrit (blood only) 19.7 % (42-52); Mean Corpuscular Hgb Conc 35.5 g/dL (32-36); Mean Corpuscular Volume 80.4 fL (80-100); Mean Platelet Volume 8.8 fL (7.4-10.4); Platelet Count 227 K/uL (130-400); RDW Standard Deviation 47.3 fL (36.4-46.3); Red Blood Count 2.45 M/uL (4.7-6.1); White Blood Count 15.56 K/uL (4.8-10.8)
[2019-01-25 02:31] LABS: Basophils # (auto) 0.01 K/uL (0-0.2); Basophils % (auto) 0.1 %; Dohle Bodies Occasional; Immature Granulocytes # (auto) 0.06 K/uL (0.00-0.02); Immature Granulocytes % (auto) 0.4 %; Lymphocytes % (auto) 4.5 %; Monocytes # (auto) 0.64 K/uL (0.11-0.59); Monocytes % (auto) 4.1 %; Neutrophils # (auto) 14.15 K/uL (1.4-6.5); Neutrophils % (auto) 90.9 %; Target Cells 1+; Toxic Vacuolation Occasional
[2019-01-25] MEDS ORDERED: SODIUM CHLORIDE 0.9% 250 ML IV PRN ×2 (02:35→07:51)
[2019-01-25] MEDS: NSS + 20MEQ KCL 20 MEQ/1,000 ML BAG IV SCH ×2 (02:53→23:48)
[2019-01-25] MEDS ORDERED: PANTOprazole 40 MG in DEXTROSE 5% 100 ML IV SCH (03:00)
[2019-01-25] MEDS ORDERED: IOVERSOL 100ml IV PRN (03:46)
[2019-01-25] MEDS: HEPARIN SOD 5,000 UNIT/0.5 ML VIAL SQ SCH (05:21)
[2019-01-25 05:37] LABS: Creatinine Clr Calc Pharmacy 90.8 ml/min; Est GFR (African American) 125.3; Est GFR (Non-African American) 108.1
[2019-01-25] MEDS ORDERED: CALCIUM GLUCONATE 10% 10 ML VIAL IV STA (06:33)
[2019-01-25] MEDS ORDERED: CALCIUM GLUCONATE 10% 2,000 MG in SODIUM CHLORIDE 0.9% 50 ML IV ONE (06:45)
--- NOTE | 2019-01-25 06:53 | XRay Report ---
XR chest 1V portable CLINICAL HISTORY: Hypoxia COMPARISON STUDY: 01/24/2019 FINDINGS: The cardiac and mediastinal contours remain stable. There are persistent left lung airspace opacities. There are no large pleural effusions. The right lung remains clear. There is underlying p ulmonary emphysema.[ IMPRESSION: Persistent left lung airspace opacities, likely infectious/inflammatory. Electronically signed by: Frankie Vela M.D. 01/25/2019 6:52 AM
--- NOTE | 2019-01-25 07:20 | CT Scan Report ---
CT head/brain wo con CLINICAL HISTORY: Acute change in mental status COMPARISON STUDY: June 25, 2016 TECHNIQUE: Axial CT of the brain is performed from the vertex to the skull base. IV contrast was not administered for this examination. A dose lowering technique was utilized adhering to the principles of ALARA. CT DOSE: 614.27 mGy.cm FINDINGS: No intra or extra-axial mass lesions are visualized. There is no CT evidence of acute cortical infarc tion. There is no evidence of midline shift. There is no acute hemorrhage. No calvarial fractures ar e visualized. There are minor white matter hypodensities likely on a small vessel basis. There is no evidence of pathologic ventricular dilatation. There is no evidence of acute sinusitis IMPRESSION: No acute intracranial findings Electronically signed by: Frankie Vela M.D. 01/25/2019 7:19 AM
--- NOTE | 2019-01-25 07:32 | Critical Care Progress Note ---
Date of Service January 25, 2019 Assessment & Plan (1) Acute upper GI bleed: Reason Critically Ill: 73-year-old male with recurrent gastrointestinal bleeding and hyponatremia PLAN: Neuro: Acute encephalopathy: Infectious versus metabolic -Follow-up ammonia level History paranoid schizophrenia -Divalproex Delayed Release 250mg BID -Quetiapine 400mg daily -Risperidone 2mg BID -Trazodone 100 mg nightly Resp: Tachypnea: Resolved Tobacco abuse Likely COPD changes -Smoking cessation education Left lung infiltrates -Mucoid impaction versus aspiration versus pneumonia -Sputum specimen: Expectorated versus NT suction -Expanded coverage with vancomycin and Zosyn CV: Hypotension -Improved with volume expansion -Weaning Levophed currently Tachycardia: Resolved -Metoprolol succinate 25 mg half tab by mouth once daily: Held in the setting of hypotension Fluids/Renal: Hyponatremia -Reviewed nephrology notes Lactic acid acidosis: Resolved Acute kidney injury: Resolved -Creatinine returned to baseline ID: Possible pneumonia: Aspiration versus mucoid impaction -Vancomycin Zosyn GI/Nutrition: Severe protein calorie malnutrition -Hypoalbuminemia, anemia, Sarcopena N.p.o. -Except meds Kevin's esophagus Possible gastrointestinal hemorrhage -Will reinstitute every 6 H&H -No advantage over twice daily PPI, patient has known malignancy which is likely causing continued blood loss -Will reconsult GI -Discontinue chemical prophylaxis Constipation -Guaiac negative per overnight hospitalist 01/25 Heme: Chronic anemia Acute blood loss anemia -Transfused 1 unit overnight -Giving additional unit PRBC along with 2.5 mg IV vitamin K DVT prophylaxis: SCDs, chemical prophylaxis contraindicated Elevated INR -Rechecking INR, fibrinogen, PTT rule out DIC: Unlikely Endocrine: ICU hyperglycemia protocol TSH within normal limits as of January 06, 2019 Undergoing cortisol stim test Vascular access: Peripheral IVs Code Status: Full: I confirmed this with the patient and discussed risks and benefits. I discussed the case with Dr. Martin of the hospitalist team I have personally spent 45 minutes of critical care time in the direct management of this patient. This is a life/limb threatening event. This includes time spent evaluating patient, direct bedside care, chart review, placing orders, interpretation of diagnostic studies, discussion with consultants, patient, and/or family members regarding treatment decisions, as well as other required patient management activities. This time is exclusive of all separately billable procedures, and teaching time and separate from and in addition to any other critical care service time. (2) Leukocytosis: (3) COPD (chronic obstructive pulmonary disease): Subjective Overnight patient developed hemodynamic instabilities, his antibiotic coverage was expanded and he was given 1 unit of packed red blood cells. Physical Exam Vital Signs (Past 24 Hours): Last Vital Signs Temp 37.0 C 01/25/19 06:40 Pulse 63 01/25/19 06:40 Resp 22 01/25/19 06:40 BP 106/58 L 01/25/19 06:40 Pulse Ox 92 01/25/19 06:40 Results & Data Diagnostic Findings I reviewed the chest x-ray I reviewed the CT scan images of the abdomen and pelvis Reviewed the radiology report of the CT head
[2019-01-25 07:43] LABS: BUN Creatinine Ratio 15.5 (10-20); Creatinine Clr Calc Pharmacy 81.2 ml/min; Est GFR (African American) 119.7; Est GFR (Non-African American) 103.3; Potassium 4.1 mmol/L (3.5-5.1)
--- NOTE | 2019-01-25 07:45 | CT Scan Report ---
CT abd pelvis IV con only CLINICAL HISTORY: Generalized abdominal pain and hypotension. COMPARISON STUDY: January 06, 2019 TECHNIQUE: Patient was scanned in a dynamic helical fashion during intravenous administration 94 cc O ptiray 320. A dose lowering technique was utilized adhering to the principles of ALARA. CT DOSE: 421.90 mGy.cm FINDINGS: Lower chest: There are bibasal or dependent pulmonary airspace opacities left greater than right. The re is a moderate hiatal hernia. Liver: The contrast-enhanced liver is normal in size, contour, and attenuation. There is no intrahepa tic biliary ductal dilatation. The hepatic veins and portal veins are patent. Gallbladder: Unremarkable. Spleen: Normal in size and attenuation. Pancreas: Unremarkable. Adrenal glands: Unremarkable. Kidneys: There is symmetric renal cortical enhancement. The kidneys are normal in size without hydron ephrosis. Bowel: There is a large amount of right colonic stool. There are no transition zones to indicate a hi gh-grade bowel obstruction. There are fluid-filled small bowel loops within the pelvis. Postsurgical changes are present within the sigmoid. Peritoneum: There is no intraperitoneal free air or abdominal ascites. Vasculature: The abdominal aorta is normal in course and caliber. Adenopathy: None. Pelvic viscera: There is indwelling Eisenberg catheter. Skeletal structures: No destructive osseous lesions are seen. The study is limited secondary to moderate motion artifact. IMPRESSION: 1. No evidence of bowel obstruction. No evidence of free air 2. Moderate fecal retention particularly involving the right colon 3. Nonvisualization the appendix. No acute intra-abdominal inflammatory changes identified 4. No evidence of retroperitoneal hemorrhage 5. Hiatal hernia 6. Basilar airspace opacities left greater than right. A pneumonia must be considered. Electronically signed by: Frankie Vela M.D. 01/25/2019 7:43 AM
[2019-01-25] MEDS: guaiFENesin 600 MG TABCR PO SCH ×2 (07:48→20:05)
[2019-01-25] MEDS: VANCOMYCIN HCL 750 MG in SODIUM CHLORIDE 0.9% 250 ML IV SCH ×2 (07:48→20:04)
[2019-01-25] MEDS: BENZTROPINE MESYLATE 1 MG TAB PO SCH ×2 (07:51→20:06)
[2019-01-25] MEDS: risperiDONE 2 MG TABLET PO SCH ×2 (07:51→20:05)
[2019-01-25] MEDS: DIVALPROEX DELAY RELEASE 250 MG TABEC PO SCH ×2 (07:53→20:06)
[2019-01-25] MEDS: NICOTINE 14 MG/24 HR PATCH TD SCH (07:54)
[2019-01-25] MEDS: QUETIAPINE FUMARATE 200 MG TAB PO SCH (07:56)
[2019-01-25] MEDS ORDERED: PHYTONADIONE 2.5 MG in SODIUM CHLORIDE 0.9% 50 ML IV ONE (08:00)
[2019-01-25] MEDS: PANTOprazole 40 MG in SYRINGE 0 ML IV SCH ×2 (08:05→20:05)
[2019-01-25 08:13] LABS: Hematocrit (blood only) 25.6 % (42-52); Hemoglobin 9.1 g/dL (14.0-18.0)
[2019-01-25 08:39] LABS: Fibrinogen 292 mg/dl (184-400); INR 1.2 (0.9-1.1); Partial Thromboplastin Ratio 1.1; Partial Thromboplastin Time 29.5 Seconds (21.0-31.0); Prothrombin Time 12.4 Seconds (9.0-12.0)
--- NOTE | 2019-01-25 10:45 | Progress Note ---
DATE: 01/25/2019 GASTROENTEROLOGY PROGRESS NOTE I was asked by Dr. Griffith to reconsult on the patient for continued issues with anemia. The patient also has had some issues with change in mental status related to electrolyte imbalance. He was noted to have a hemoglobin that went from 8.9-7, and with just 1 unit, his hemoglobin went up to 9.1. He has not had a bowel movement in the 12 hour shift, and the last 12 hour shift, he just had 1 BM. This was not noted to be melena. He denies any abdominal pain. The question that was posed to me is whether he would benefit from being sent to [place] to undergo endoscopic treatment for his esophageal cancer. At this point, it is unclear whether Dr. Morejon would be available on Saturday and with his other electrolyte imbalances and metabolic disarray, I would recommend stabilizing him from that standpoint and Saturday our service can contact [place] to see if Dr. Morejon would be available to have this done. It is surprising that his hemoglobin went so quickly up to 9.1 which is 1 unit. It is apparent that he is not grossly bleeding, but certainly he is having chronic low-grade GI bleeding from this tumor and he will continue to do so. Repeat endoscopic evaluation would be of no benefit here. I will sign this out to my colleagues in the morning. JOSHUA
--- NOTE | 2019-01-25 11:35 | Nephrology Progress Note ---
Date of Service January 25, 2019 Assessment & Plan (1) Hyponatremia: acute but asymptomatic hyponatremia >> back to 134 today. acute change from 134 > 123 in 24 hrs; and dropped further to 120 seven hrs after that by midday 01/24 >> from polydipsia in pt prone to this condition from copd, schizophrenia and its meds. responded to series of 3% saline. -pls d/c seizure precautions; ok to move out of icu from sodium standpoint -liberalize FR to 1.5L daily when he is taking po again -ordered recheck bmp 1600 WILL sign off; pls call if ? Physical Exam Vital Signs (Past 24 Hours): Last Vital Signs Temp 37.0 C 01/25/19 06:40 Pulse 63 01/25/19 06:40 Resp 22 01/25/19 06:40 BP 106/58 L 01/25/19 06:40 Pulse Ox 92 01/25/19 06:40 Constitutional: + cachectic and + disheveled; no acute distress Eyes: EOM intact bilaterally ENMT: Mouth: + tongue abnormality (thick; protrudes from mouth often) Neck: no nuchal rigidity Respiratory: able to speak in complete sentences (but hard to understand d/t tongue/throat clearing) and + prolonged expiratory phase; no respiratory distress, no labored breathing and no paradoxical thoraco-abdominal movemnt Auscultation: + diminished lung sounds; no crackles and no wheezes Cardiovascular: Rate/Rhythm: + tachycardic Extremities: no edema Gastrointestinal (Abdomen): Inspection/Auscultation: + abdomen distended and normal bowel sounds Percussion/Palpation: + abdomen tender (minimal periumbilical) and abdomen soft Skin: no rashes, warm and dry Psychiatric: Orientation: oriented x 3 Affect: + flat affect Thought Process: linear/logical thought process Results & Data Laboratory Results Abnormal lab results 01/24/19 01/24/19 01/24/19 Range/Units 11:14 15:57 15:57 WBC (4.8-10.8) K/uL RBC (4.7-6.1) M/uL Hgb 8.9 L (14.0-18.0) g/dL Hct 25.2 L (42-52) % RDW Std Deviation (36.4-46.3) fL RDW Coeff of Migel (11.5-14.5) % Immature Gran # (Auto) (0.00-0.02) K/uL Neut # (Auto) (1.4-6.5) K/uL Lymph # (Auto) (1.2-3.4) K/uL [place] # (Auto) (0.11-0.59) K/uL PT (9.0-12.0) Seconds INR (0.9-1.1) POC pCO2 (35-46) mmHg POC pO2 (80-95) mmHg POC Total CO2 (24-31) mEq/l Sodium 120 L 123 L (136-145) mmol/L Chloride 89 L 91 L (98-107) mmol/L Creatinine 0.39 L 0.33 L (0.6-1.4) mg/dl BUN/Creatinine Ratio 30.2 H 38.3 H (10-20) Glucose 125 H (70-99) mg/dl Calcium 7.3 L 7.3 L (8.5-10.1) mg/dl AST (15-37) U/L ALT (12-78) U/L Total Protein (6.4-8.2) gm/dl Albumin (3.4-5.0) gm/dl Valproic Acid (50-100) mcg/ml Crossmatch 01/24/19 01/24/19 01/25/19 Range/Units 18:13 20:18 00:56 WBC (4.8-10.8) K/uL RBC (4.7-6.1) M/uL Hgb (14.0-18.0) g/dL Hct (42-52) % RDW Std Deviation (36.4-46.3) fL RDW Coeff of Migel (11.5-14.5) % Immature Gran # (Auto) (0.00-0.02) K/uL Neut # (Auto) (1.4-6.5) K/uL Lymph # (Auto) (1.2-3.4) K/uL [place] # (Auto) (0.11-0.59) K/uL PT (9.0-12.0) Seconds INR (0.9-1.1) POC pCO2 (35-46) mmHg POC pO2 (80-95) mmHg POC Total CO2 (24-31) mEq/l Sodium 125 L 126 L 124 L (136-145) mmol/L Chloride 93 L 95 L 95 L (98-107) mmol/L Creatinine 0.39 L 0.44 L 0.43 L (0.6-1.4) mg/dl BUN/Creatinine Ratio 29.2 H 24.8 H 25.9 H (10-20) Glucose (70-99) mg/dl Calcium 7.5 L 7.2 L 6.8 L (8.5-10.1) mg/dl AST 9 L (15-37) U/L ALT 9 L (12-78) U/L Total Protein 5.3 L (6.4-8.2) gm/dl Albumin 2.6 L (3.4-5.0) gm/dl Valproic Acid (50-100) mcg/ml Crossmatch 01/25/19 01/25/19 01/25/19 Range/Units 01:55 01:58 01:58 WBC 15.56 H (4.8-10.8) K/uL RBC 2.45 L (4.7-6.1) M/uL Hgb 7.0 L (14.0-18.0) g/dL Hct 19.7 L* (42-52) % RDW Std Deviation 47.3 H (36.4-46.3) fL RDW Coeff of Migel 16.0 H (11.5-14.5) % Immature Gran # (Auto) 0.06 H (0.00-0.02) K/uL Neut # (Auto) 14.15 H (1.4-6.5) K/uL Lymph # (Auto) 0.70 L (1.2-3.4) K/uL [place] # (Auto) 0.64 H (0.11-0.59) K/uL PT (9.0-12.0) Seconds INR (0.9-1.1) POC pCO2 29 L (35-46) mmHg POC pO2 72 L (80-95) mmHg POC Total CO2 20 L (24-31) mEq/l Sodium (136-145) mmol/L Chloride (98-107) mmol/L Creatinine (0.6-1.4) mg/dl BUN/Creatinine Ratio (10-20) Glucose (70-99) mg/dl Calcium (8.5-10.1) mg/dl AST (15-37) U/L ALT (12-78) U/L Total Protein (6.4-8.2) gm/dl Albumin (3.4-5.0) gm/dl Valproic Acid (50-100) mcg/ml Crossmatch See Detail 01/25/19 01/25/19 01/25/19 Range/Units 01:59 04:51 07:12 WBC (4.8-10.8) K/uL RBC (4.7-6.1) M/uL Hgb (14.0-18.0) g/dL Hct (42-52) % RDW Std Deviation (36.4-46.3) fL RDW Coeff of Migel (11.5-14.5) % Immature Gran # (Auto) (0.00-0.02) K/uL Neut # (Auto) (1.4-6.5) K/uL Lymph # (Auto) (1.2-3.4) K/uL Robeson # (Auto) (0.11-0.59) K/uL PT (9.0-12.0) Seconds INR (0.9-1.1) POC pCO2 (35-46) mmHg POC pO2 (80-95) mmHg POC Total CO2 (24-31) mEq/l Sodium 135 L D (136-145) mmol/L Chloride (98-107) mmol/L Creatinine 0.51 L 0.57 L (0.6-1.4) mg/dl BUN/Creatinine Ratio (10-20) Glucose 131 H (70-99) mg/dl Calcium 8.0 L D (8.5-10.1) mg/dl AST (15-37) U/L ALT (12-78) U/L Total Protein (6.4-8.2) gm/dl Albumin (3.4-5.0) gm/dl Valproic Acid 48 L (50-100) mcg/ml Crossmatch 01/25/19 01/25/19 01/25/19 Range/Units 08:02 08:02 08:02 WBC (4.8-10.8) K/uL RBC (4.7-6.1) M/uL Hgb 9.1 L (14.0-18.0) g/dL Hct 25.6 L (42-52) % RDW Std Deviation (36.4-46.3) fL RDW Coeff of Migel (11.5-14.5) % Immature Gran # (Auto) (0.00-0.02) K/uL Neut # (Auto) (1.4-6.5) K/uL Lymph # (Auto) (1.2-3.4) K/uL Robeson # (Auto) (0.11-0.59) K/uL PT 12.4 H (9.0-12.0) Seconds INR 1.2 H (0.9-1.1) POC pCO2 (35-46) mmHg POC pO2 (80-95) mmHg POC Total CO2 (24-31) mEq/l Sodium 134 L (136-145) mmol/L Chloride (98-107) mmol/L Creatinine (0.6-1.4) mg/dl BUN/Creatinine Ratio (10-20) Glucose (70-99) mg/dl Calcium (8.5-10.1) mg/dl AST (15-37) U/L ALT (12-78) U/L Total Protein (6.4-8.2) gm/dl Albumin (3.4-5.0) gm/dl Valproic Acid (50-100) mcg/ml Crossmatch
--- NOTE | 2019-01-25 14:16 | Pharmacy Report ---
Pharmacy Abx Initial Consult - Date of Service January 25, 2019 - Pharmacy Dosing Scope Date of Consult: 01/24 Consultation requested by: Dr. Matias Pharmacy is consulted to initiate vancomycin/zosyn IV/PO dosing therapy, order appropriate labs and adjust drug dose/frequency. - Subjective The patient is a 73 year old M admitted on 01/22/19 12:14. - Objective Height: 5 ft 6 in Weight: 48.3 kg Vital Signs (Past 12hrs): Vital Signs Temp Pulse Resp BP Pulse Ox 01/25/19 06:40 37.0 C 63 22 106/58 L 92 01/25/19 05:51 73 20 99/57 L 89 L 01/25/19 05:45 37.0 C 69 19 110/62 93 01/25/19 05:40 69 22 100/54 L 94 01/25/19 05:35 71 20 90/54 L 95 01/25/19 05:30 71 24 105/62 96 01/25/19 05:25 63 19 116/61 97 01/25/19 05:20 37.0 C 69 20 111/62 98 01/25/19 05:15 67 24 109/62 97 01/25/19 05:10 68 32 H 102/60 98 01/25/19 05:05 68 23 102/59 L 97 01/25/19 05:00 69 20 103/57 L 97 01/25/19 04:55 73 17 111/62 98 01/25/19 04:50 72 23 104/60 97 01/25/19 04:45 37.0 C 65 22 114/63 97 01/25/19 04:40 67 20 110/65 98 01/25/19 04:35 37.1 C 67 19 112/62 97 01/25/19 04:30 36.9 C 73 22 108/56 L 97 01/25/19 04:18 36.9 C 72 16 103/61 95 01/25/19 04:15 36.9 C 75 20 94 01/25/19 04:00 74 17 103/61 94 01/25/19 03:49 84 14 92 01/25/19 03:15 83 25 H 92 01/25/19 03:06 83 20 92/52 L 92 01/25/19 03:02 86 18 84/50 L 93 01/25/19 03:01 88 19 83/48 L 92 01/25/19 03:00 87 18 93 01/25/19 02:55 90 19 97/67 L 95 01/25/19 02:49 79 22 81/47 L 94 01/25/19 02:45 79 20 93 01/25/19 02:30 76 21 94 01/25/19 02:15 85 20 94 Lab Results (24hrs): Laboratory Tests (24 Hours) 01/25/19 01/25/19 01/25/19 07:12 04:51 04:51 WBC Neut # (Auto) Creatinine 0.57 L 0.51 L Est Cr Clr Drug Dosing 81.2 90.8 Total Creatine Kinase Procalcitonin Random Vancomycin 8.5 01/25/19 01/25/19 01/24/19 01:58 00:56 20:18 WBC 15.56 H Neut # (Auto) 14.15 H Creatinine 0.43 L Est Cr Clr Drug Dosing 99.4 Total Creatine Kinase 108 Procalcitonin 0.20 Random Vancomycin 01/24/19 01/24/19 01/24/19 20:18 18:13 15:57 WBC Neut # (Auto) Creatinine 0.44 L 0.39 L 0.33 L Est Cr Clr Drug Dosing 97.1 109.6 129.5 Total Creatine Kinase Procalcitonin Random Vancomycin Micro Results: 01/24/19 20:13 Blood Culture - Pending Blood 01/24/19 20:13 Blood Culture - Pending Blood 01/22/19 13:35 Urine Culture - Final Urine,Clean Catch No growth - less than 1,000 colonies/mL. - Assessment & Plan Assessment 73 year old M [] Assessment Patient admitted Assessment 73 year old M presented to ED from personal fpc with coffee-ground emesis, hypotensive on 01/22. 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 Protonix started for GI Bleed. Vancomycin/zosyn were started on admission and discontinued after no obvious source of infection. White count remains elevated, Tmax 37.9. Restarting vancomycin/zosyn for possible pneumonia. Plan Vancomycin IV * Estimated PK Parameters: Vd 0.7 L/kg, Khang 0.07 hr-1, t1/2 9 hr * Loading dose: 1000 mg (22 mg/kg) * Maintenance dose: 750 mg IV (15.5 mg/kg) every 12 hours * Goal trough level 15-20 mcg/mL * Trough ordered for 01/26 @0730 Piperacillin/tazobactam * 4.5 g bolus administered over 30 minutes, then 4.5 g IV extended infusion every 8 hours for CrCl greater than 20 mL/min Pharmacy will continue to follow and will adjust dose/frequency as necessary. Thank you.
--- NOTE | 2019-01-25 15:42 | Nephrology Progress Note ---
Date of Service January 25, 2019 Assessment & Plan (1) Hyponatremia: acute but asymptomatic hyponatremia >> back to 134 today. acute change from 134 > 123 in 24 hrs; and dropped further to 120 seven hrs after that by midday 01/24 >> from polydipsia in pt prone to this condition from copd, schizophrenia and its meds. responded to series of 3% saline infusions -until MS better, cont seizure precautions; ok to move out of icu from sodium standpoint -liberalize FR to 1.5L daily when he is taking po again -ordered recheck bmp 1600 WILL sign off; pls call if ? Subjective had issues w/ low bp ON >< got head ct (unremarkable for acute change); had transient need for levo; NPO currently but hope to reintroduce diet this afternoon. seen late AM. pt still graggy; does not participate much in ros. denies sob or musculoskeleatl pain; still thirsty. no further bleeding Physical Exam Vital Signs (Past 24 Hours): Last Vital Signs Temp 37.0 C 01/25/19 06:40 Pulse 63 01/25/19 06:40 Resp 22 01/25/19 06:40 BP 106/58 L 01/25/19 06:40 Pulse Ox 92 01/25/19 06:40 Constitutional: well developed, + cachectic and + disheveled on RA, areouseable but lethargic Eyes: EOM intact bilaterally ENMT: Ears: no external ear abnormality Nose: no external nose abnormality Mouth: + dry oral mucous membranes Neck: no nuchal rigidity Respiratory: normal respiratory effort Auscultation: + diminished lung sounds Cardiovascular: Rate/Rhythm: regular rhythm and + tachycardic Extremities: no edema Gastrointestinal (Abdomen): Inspection/Auscultation: normal bowel sounds Percussion/Palpation: abdomen soft; abdomen nontender Musculoskeletal: Extremities: strength 5/5 throughout Skin: no rashes, warm and dry Neurologic: mcgill, no tremor Psychiatric: Orientation: + guarded Affect: + blunted affect Results & Data Laboratory Results Abnormal lab results 01/24/19 01/24/19 01/24/19 Range/Units 15:57 15:57 18:13 WBC (4.8-10.8) K/uL RBC (4.7-6.1) M/uL Hgb 8.9 L (14.0-18.0) g/dL Hct 25.2 L (42-52) % RDW Std Deviation (36.4-46.3) fL RDW Coeff of Migel (11.5-14.5) % Immature Gran # (Auto) (0.00-0.02) K/uL Neut # (Auto) (1.4-6.5) K/uL Lymph # (Auto) (1.2-3.4) K/uL [place] # (Auto) (0.11-0.59) K/uL PT (9.0-12.0) Seconds INR (0.9-1.1) POC pCO2 (35-46) mmHg POC pO2 (80-95) mmHg POC Total CO2 (24-31) mEq/l Sodium 123 L 125 L (136-145) mmol/L Chloride 91 L 93 L (98-107) mmol/L Creatinine 0.33 L 0.39 L (0.6-1.4) mg/dl BUN/Creatinine Ratio 38.3 H 29.2 H (10-20) Glucose (70-99) mg/dl POC Glucose (70-99) Calcium 7.3 L 7.5 L (8.5-10.1) mg/dl AST (15-37) U/L ALT (12-78) U/L Total Protein (6.4-8.2) gm/dl Albumin (3.4-5.0) gm/dl Valproic Acid (50-100) mcg/ml Crossmatch 01/24/19 01/25/19 01/25/19 Range/Units 20:18 00:56 01:55 WBC (4.8-10.8) K/uL RBC (4.7-6.1) M/uL Hgb (14.0-18.0) g/dL Hct (42-52) % RDW Std Deviation (36.4-46.3) fL RDW Coeff of Migel (11.5-14.5) % Immature Gran # (Auto) (0.00-0.02) K/uL Neut # (Auto) (1.4-6.5) K/uL Lymph # (Auto) (1.2-3.4) K/uL [place] # (Auto) (0.11-0.59) K/uL PT (9.0-12.0) Seconds INR (0.9-1.1) POC pCO2 29 L (35-46) mmHg POC pO2 72 L (80-95) mmHg POC Total CO2 20 L (24-31) mEq/l Sodium 126 L 124 L (136-145) mmol/L Chloride 95 L 95 L (98-107) mmol/L Creatinine 0.44 L 0.43 L (0.6-1.4) mg/dl BUN/Creatinine Ratio 24.8 H 25.9 H (10-20) Glucose (70-99) mg/dl POC Glucose (70-99) Calcium 7.2 L 6.8 L (8.5-10.1) mg/dl AST 9 L (15-37) U/L ALT 9 L (12-78) U/L Total Protein 5.3 L (6.4-8.2) gm/dl Albumin 2.6 L (3.4-5.0) gm/dl Valproic Acid (50-100) mcg/ml Crossmatch 01/25/19 01/25/19 01/25/19 Range/Units 01:58 01:58 01:59 WBC 15.56 H (4.8-10.8) K/uL RBC 2.45 L (4.7-6.1) M/uL Hgb 7.0 L (14.0-18.0) g/dL Hct 19.7 L* (42-52) % RDW Std Deviation 47.3 H (36.4-46.3) fL RDW Coeff of Migel 16.0 H (11.5-14.5) % Immature Gran # (Auto) 0.06 H (0.00-0.02) K/uL Neut # (Auto) 14.15 H (1.4-6.5) K/uL Lymph # (Auto) 0.70 L (1.2-3.4) K/uL [place] # (Auto) 0.64 H (0.11-0.59) K/uL PT (9.0-12.0) Seconds INR (0.9-1.1) POC pCO2 (35-46) mmHg POC pO2 (80-95) mmHg POC Total CO2 (24-31) mEq/l Sodium (136-145) mmol/L Chloride (98-107) mmol/L Creatinine (0.6-1.4) mg/dl BUN/Creatinine Ratio (10-20) Glucose (70-99) mg/dl POC Glucose (70-99) Calcium (8.5-10.1) mg/dl AST (15-37) U/L ALT (12-78) U/L Total Protein (6.4-8.2) gm/dl Albumin (3.4-5.0) gm/dl Valproic Acid 48 L (50-100) mcg/ml Crossmatch See Detail 01/25/19 01/25/19 01/25/19 Range/Units 04:51 07:12 08:02 WBC (4.8-10.8) K/uL RBC (4.7-6.1) M/uL Hgb 9.1 L (14.0-18.0) g/dL Hct 25.6 L (42-52) % RDW Std Deviation (36.4-46.3) fL RDW Coeff of Migel (11.5-14.5) % Immature Gran # (Auto) (0.00-0.02) K/uL Neut # (Auto) (1.4-6.5) K/uL Lymph # (Auto) (1.2-3.4) K/uL [place] # (Auto) (0.11-0.59) K/uL PT (9.0-12.0) Seconds INR (0.9-1.1) POC pCO2 (35-46) mmHg POC pO2 (80-95) mmHg POC Total CO2 (24-31) mEq/l Sodium 135 L D (136-145) mmol/L Chloride (98-107) mmol/L Creatinine 0.51 L 0.57 L (0.6-1.4) mg/dl BUN/Creatinine Ratio (10-20) Glucose 131 H (70-99) mg/dl POC Glucose (70-99) Calcium 8.0 L D (8.5-10.1) mg/dl AST (15-37) U/L ALT (12-78) U/L Total Protein (6.4-8.2) gm/dl Albumin (3.4-5.0) gm/dl Valproic Acid (50-100) mcg/ml Crossmatch 01/25/19 01/25/19 01/25/19 Range/Units 08:02 08:02 11:34 WBC (4.8-10.8) K/uL RBC (4.7-6.1) M/uL Hgb (14.0-18.0) g/dL Hct (42-52) % RDW Std Deviation (36.4-46.3) fL RDW Coeff of Migel (11.5-14.5) % Immature Gran # (Auto) (0.00-0.02) K/uL Neut # (Auto) (1.4-6.5) K/uL Lymph # (Auto) (1.2-3.4) K/uL [place] # (Auto) (0.11-0.59) K/uL PT 12.4 H (9.0-12.0) Seconds INR 1.2 H (0.9-1.1) POC pCO2 (35-46) mmHg POC pO2 (80-95) mmHg POC Total CO2 (24-31) mEq/l Sodium 134 L (136-145) mmol/L Chloride (98-107) mmol/L Creatinine (0.6-1.4) mg/dl BUN/Creatinine Ratio (10-20) Glucose (70-99) mg/dl POC Glucose 121 H (70-99) Calcium (8.5-10.1) mg/dl AST (15-37) U/L ALT (12-78) U/L Total Protein (6.4-8.2) gm/dl Albumin (3.4-5.0) gm/dl Valproic Acid (50-100) mcg/ml Crossmatch
[2019-01-25 16:26] LABS: BUN Creatinine Ratio 16.8 (10-20); Creatinine Clr Calc Pharmacy 63.4 ml/min; Est GFR (African American) 108.2; Est GFR (Non-African American) 93.3
--- NOTE | 2019-01-25 16:41 | Hospitalist Progress Note ---
Date of Service January 25, 2019 Assessment & Plan (1) Upper GI bleed: (2) Anemia: Patient is a 73 yr old male with H/O Kevin's, Esophageal adenocarcinoma and other problems presents [facility] for coffee grounds emesis. Acute Upper GI bleeding: In setting of Kevin's, Esophageal adenocarcinoma S/P 3 units PRBC Could have some bleeding from the tumor IV Protonix ggt>>IV BID Monitor H&H Planned for outpatient endoscopic mucosal resection by Dr. Morejon in [place] Received IV fluids GI following Hb: 9.1 after transfusion (3) Kevin esophagus: (4) History of esophageal cancer: H/O Kevin's esophagus. 11/20/18 EGD: Nodular ulcerated lesion. EUS: Mass lower third esophagus. Biopsies positive for adenocarcinoma. Planned for outpatient endoscopic mucosal resection by Dr. Morejon in [place] Hyponatremia: Sodium levels:135>>>120>>125>>135 Asymptomatic Likely due to Polydipsia Urine Sodium: 99 Fluid restriction IV fluids as per Nephrology Seizure precautions Monitor sodium levels closely Appreciate Nephrology help (5) Leukocytosis: (6) Elevated lactic acid level: Possible Pneumonia Continue IV Abx Initial Blood Culture: No growth Urine Culture:No growth Repeat Blood Cultures: pending Lactate levels normalized Metabolic Encephalopathy CT head:No acute intracranial findings Could be multifactorial: acute infection, electrolyte imbalance, schizophrennia Monitor mental status (7) Hypomagnesemia: Resolved monitor (8) COPD (chronic obstructive pulmonary disease): On albuterol or ipratropium. Not on inhaled steroids xopenex/atrovent nebs prn (9) Paranoid schizophrenia: Continue home meds (10) HTN (hypertension): Hypotension improved Metoprolol currently held Hypomagnesemia: Replace electrolytes as needed Tobacco use disorder Nicotine Patch [employer] Loom to quit DVT Px: SCDs Re: GI bleed Code Status: Full Code Subjective Patient is seen and examined at bedside Patient is lethargic this morning Unable to provide much history Weaned off Pressors No gross bleeding Received 1 unit PRBCs Denies chest pain, SOB, dizziness Has Chronic cough Started on IV abx for possible Pneumonia Physical Exam Vital Signs (Past 24 Hours): Last Vital Signs Temp 37.0 C 01/25/19 06:40 Pulse 63 01/25/19 06:40 Resp 22 01/25/19 06:40 BP 106/58 L 01/25/19 06:40 Pulse Ox 92 01/25/19 06:40 Physical Exam: Physical Exam: Vitals signs as noted above General Appearance:Thin, no apparent distress, drowsy Head: normocephalic, Atraumatic Eyes: normal inspection, EOMI Neck: supple, Trachea midline Respiratory/Chest: Decreased breath sounds, CTA Cardiovascular: S1, S2, No murmur Abdomen/GI:Soft, Non tender, Bowel sounds present Extremities/Musculoskelatal:normal inspection, no edema Neurologic/Psych:grossly no focal neurological deficits Skin: normal color, warm Results & Data Laboratory Results Short CBC 01/25/19 01/25/19 Range/Units 01:58 08:02 WBC 15.56 H (4.8-10.8) K/uL Hgb 7.0 L 9.1 L (14.0-18.0) g/dL Hct 19.7 L* 25.6 L (42-52) % Plt Count 227 (130-400) K/uL BMP 01/24/19 01/24/19 01/25/19 18:13 20:18 00:56 Sodium 125 L 126 L 124 L Potassium 4.1 4.1 3.9 Chloride 93 L 95 L 95 L Carbon Dioxide 22 23 21 BUN 11 11 11 Creatinine 0.39 L 0.44 L 0.43 L Glucose 91 92 96 Calcium 7.5 L 7.2 L 6.8 L 01/25/19 01/25/19 01/25/19 04:51 07:12 08:02 Sodium 135 L D 134 L Potassium 4.1 Chloride 103 Carbon Dioxide 25 BUN 9 Creatinine 0.51 L 0.57 L Glucose 131 H Calcium 8.0 L D 01/25/19 16:00 Sodium 135 L Potassium 4.0 Chloride 104 Carbon Dioxide 25 BUN 12 Creatinine 0.73 Glucose 123 H Calcium 8.0 L Cardiac Enzymes 01/25/19 Range/Units 00:56 Total Creatine Kinase 108 (39-308) U/L Liver Function 01/25/19 Range/Units 00:56 Total Bilirubin 0.6 (0.2-1) mg/dl AST 9 L (15-37) U/L ALT 9 L (12-78) U/L Alkaline Phosphatase 59 (45-117) U/L Albumin 2.6 L (3.4-5.0) gm/dl
[2019-01-25] MEDS: PANTOprazole 40 MG in DEXTROSE 5% 100 ML IV SCH (19:47)
[2019-01-25] MEDS: TRAZODONE HCL 100 MG TAB PO SCH (20:05)
[2019-01-26] MEDS: NOREPINEPHRINE BIT INJ 8 MG in DEXTROSE 5% 500 ML IV SCH (00:42)
[2019-01-26] MEDS: PIPERACILLIN/TAZOBACTAM 4.5 GM in DEXTROSE 5% 100 ML IV SCH ×2 (02:44→08:42)
--- NOTE | 2019-01-26 04:48 | Critical Care Progress Note ---
Date of Service January 26, 2019 Assessment & Plan (1) Acute upper GI bleed: PLAN: Neuro: Acute encephalopathy: Infectious versus metabolic -Within normal limits History paranoid schizophrenia -Divalproex Delayed Release 250mg BID -Quetiapine 400mg daily -Risperidone 2mg BID -Trazodone 100 mg nightly Resp: Tachypnea: Resolved Tobacco abuse Likely COPD changes -Smoking cessation education Left lung infiltrates -Mucoid impaction versus aspiration versus pneumonia -Sputum specimen: Expectorated versus NT suction -Expanded coverage with vancomycin and Zosyn CV: Hypotension: resolved Tachycardia: Resolved -Metoprolol succinate 25 mg half tab by mouth once daily: Held in the setting of hypotension Fluids/Renal: Hyponatremia: Resolved Lactic acid acidosis: Resolved Acute kidney injury: Resolved -Creatinine returned to baseline ID: Possible pneumonia: Aspiration versus mucoid impaction -Vancomycin Zosyn GI/Nutrition: Severe protein calorie malnutrition -Hypoalbuminemia, anemia, Sarcopena N.p.o. -diet restarted Kevin's esophagus -We will need follow-up with gastroenterology service for possible transfer for for therapeutic intervention Possible gastrointestinal hemorrhage -No advantage over twice daily PPI, patient has known malignancy which is likely causing continued blood loss -Reviewed gastroenterology recommendations -chemical prophylaxis contraindicated Constipation -Guaiac negative per overnight hospitalist 01/25 Heme: Chronic anemia Acute blood loss anemia -Transfused 1 unit 01/24 DVT prophylaxis: SCDs, chemical prophylaxis contraindicated Elevated INR: Improved -No evidence of DIC at this time Endocrine: ICU hyperglycemia protocol TSH within normal limits as of January 06, 2019 Undergoing cortisol stim test -Corticotropin not ordered so random cortisol sent and inadequate -Hydrocortisone supplementation -Will require follow-up as outpatient for formal cortical stim testing Vascular access: Peripheral IVs Code Status: Full: I confirmed this with the patient and discussed risks and benefits. (2) Leukocytosis: (3) COPD (chronic obstructive pulmonary disease): Subjective No overnight events Physical Exam Vital Signs (Past 24 Hours): Last Vital Signs Temp 37 C 01/26/19 00:01 Pulse 84 01/26/19 00:01 Resp 15 01/26/19 00:01 BP 100/59 L 01/26/19 00:01 Pulse Ox 97 01/26/19 00:01 General: Alert. nontoxic. Skin: Warm, dry, Head: Atraumatic Ears, nose, mouth and throat: airway patent Cardiovascular: Normal peripheral perfusion Respiratory: no respiratory distress Gastrointestinal: Non distended Musculoskeletal: No deformity
[2019-01-26 05:42] LABS: BUN Creatinine Ratio 37.3 (10-20); Calcium 7.6 mg/dl (8.5-10.1); Est GFR (African American) 124.3; Est GFR (Non-African American) 107.3; Magnesium 1.8 mg/dl (1.8-2.4); Potassium 3.9 mmol/L (3.5-5.1)
[2019-01-26 05:45] LABS: Basophils # (auto) 0.01 K/uL (0-0.2); Basophils % (auto) 0.1 %; Eosinophils # (auto) 0.01 K/uL (0-0.5); Eosinophils % (auto) 0.1 %; Hematocrit (blood only) 25.1 % (42-52); Hemoglobin 8.7 g/dL (14.0-18.0); Immature Granulocytes # (auto) 0.06 K/uL (0.00-0.02); Immature Granulocytes % (auto) 0.4 %; Lymphocytes # (auto) 2.26 K/uL (1.2-3.4); Lymphocytes % (auto) 16.6 %; Mean Corpuscular Volume 82.3 fL (80-100); Mean Platelet Volume 9.1 fL (7.4-10.4); Monocytes # (auto) 1.51 K/uL (0.11-0.59); Monocytes % (auto) 11.1 %; Neutrophils # (auto) 9.77 K/uL (1.4-6.5); Neutrophils % (auto) 71.7 %; Platelet Count 275 K/uL (130-400); RDW Coefficient of Variation 16.4 % (11.5-14.5); RDW Standard Deviation 48.7 fL (36.4-46.3); Red Blood Count 3.05 M/uL (4.7-6.1); White Blood Count 13.62 K/uL (4.8-10.8)
[2019-01-26 05:53] LABS: Mean Corpuscular Hgb Conc 34.7 g/dL (32-36)
[2019-01-26 06:28] LABS: Echinocytes 1+; Ovalocytes 1+
[2019-01-26] MEDS ORDERED: VANCOMYCIN TROUGH ONE (07:30)
[2019-01-26] MEDS: VANCOMYCIN HCL 750 MG in SODIUM CHLORIDE 0.9% 250 ML IV SCH (07:51)
[2019-01-26] MEDS: risperiDONE 2 MG TABLET PO SCH (07:51)
[2019-01-26] MEDS: BENZTROPINE MESYLATE 1 MG TAB PO SCH (07:52)
[2019-01-26] MEDS: QUETIAPINE FUMARATE 200 MG TAB PO SCH (07:52)
[2019-01-26] MEDS: NICOTINE 14 MG/24 HR PATCH TD SCH (07:52)
[2019-01-26] MEDS: DIVALPROEX DELAY RELEASE 250 MG TABEC PO SCH (07:52)
[2019-01-26] MEDS: PANTOprazole 40 MG in SYRINGE 0 ML IV SCH (07:52)
[2019-01-26] MEDS: guaiFENesin 600 MG TABCR PO SCH (07:53)
--- NOTE | 2019-01-26 10:26 | Gastroenterology Progress Note ---
Date of Service January 26, 2019 Assessment & Plan (1) Coffee ground emesis: 73 year old male w hx of Kevin's and dx of esophageal adenocarcinoma in November who presented with coffee grounds and Hb 7.2. Since admission no evidence of gross GI bleeding but continued downward trend of HGB - Expect some ongoing slow GI bleeding from the malignant tumor - No plan for EGD at [facility] - Will reach out to advanced endoscopy in [place] Thank you for allowing us to participate in the care of this patient. Please call with any acute changes, questions or concerns. Please see addendum below with additional recommendation from my supervising physician. (2) Esophageal cancer: (3) Kevin esophagus: Supervising Physician Co-Signing Physician Notes Attending attestation I have seen, examined this patient, and agree with the findings and above by our mid-level provider SYDNIE Langston. -Adm with coffee ground emesis in the setting of known esophageal adeno -Not optimal surgical candidate, and presented at [facility] with plans for ESD (not done locally) will need tx after [place] [facility] for attempts at curative treatment while inpt if transf erred. -Suggest Transfer [place] [facility] [place] Subjective 73 yr old male with a GE malignancy who was brought from [facility] for coffee grounds emesis. GI asked to re-evaluate for continued GI management. Pt was seen and evaluated, chart reviewed. No further episodes of coffee grond emesis. No hematemsis. He denies black or bloody stools but HGB continues to trend down. Constitutional: as per Subjective / HPI Ear, Nose, Mouth, Throat: as per Subjective / HPI Respiratory: + cough; no dyspnea Gastrointestinal: as per Subjective / HPI Physical Exam Vital Signs (Past 24 Hours): Last Vital Signs Temp 37.1 C 01/26/19 08:01 Pulse 89 01/26/19 10:00 Resp 19 01/26/19 10:00 BP 86/57 L 01/26/19 10:00 Pulse Ox 94 01/26/19 10:00 Constitutional: + ill appearing, + thin, + frail appearing, cooperative and comfortable; no acute distress Respiratory: normal respiratory effort, lungs clear to auscultation Cardiovascular: Heart Sounds: normal S1 and normal S2; no click and no cardiac rub Gastrointestinal (Abdomen): normal bowel sounds, soft, nontender, no hepatosplenomegaly Results & Data Laboratory Results 01/26/19 01/26/19 01/26/19 Range/Units 07:17 05:36 04:50 WBC 13.62 H RBC 3.05 L Hgb 8.7 L Hct 25.1 L MCV 82.3 MCH 28.5 MCHC 34.7 RDW Std Deviation 48.7 H RDW Coeff of Migel 16.4 H Plt Count 275 MPV 9.1 Immature Gran % (Auto) 0.4 Neut % (Auto) 71.7 Lymph % (Auto) 16.6 Kemper % (Auto) 11.1 Eos % (Auto) 0.1 Baso % (Auto) 0.1 Immature Gran # (Auto) 0.06 H Neut # (Auto) 9.77 H Lymph # (Auto) 2.26 Kemper # (Auto) 1.51 H Eos # (Auto) 0.01 Baso # (Auto) 0.01 Absolute Nucleated RBC Nucleated RBC % (auto) Neutrophils % (Manual) Band Neutrophils % Lymphocytes % (Manual) Prolymphocyte % Reactive Lymphs % (Man) Monocytes % (Manual) Eosinophils % (Manual) Basophils % (Manual) Metamyelocytes % (Man) Myelocytes % (Man) Promyelocytes % (Man) Blast Cells % (Manual) Plasma Cell % (Manual) Other Cells % Nucleated RBC % Neutrophils # (Manual) Band Neutrophils # Total Absolute Neuts Lymphocytes # (Manual) Prolymphocyte # Reactive Lymphs # Total Abs Lymphocytes Monocytes # (Manual) Eosinophils # (Manual) Basophils # (Manual) Metamyelocytes # (Man) Myelocytes # (Manual) Promyelocytes # (Man) Blast Cells # (Man) Plasma Cell # (Manual) Other Cells # Nucleated RBCs # (Man) Hypersegmented Neuts Hyposegmented Neuts Hypogranular Neuts Large Granular Lymphs # Lrg Granular Lymphs Hairy Cells Smudge Cells Toxic Granulation Toxic Vacuolation Dohle Bodies Akira Rods Platelet Estimate Hypogranular Platelets Clumped Platelets Giant Platelets Platelet Satelliting RBC Morphology Polychromasia Hypochromasia Poikilocytosis Basophilic Stippling Anisocytosis Microcytosis Macrocytosis Spherocytes Pappenheimer Bodies Sickle Cells Target Cells Tear Drop Cells Ovalocytes 1+ Stomatocytes Loera-Forbes Bodies Echinocytes 1+ Acanthocytes (Spur) Rouleaux RBC Agglutinates Schistocytes RBC Morph Comment Sezary Cell Sodium 136 (136-145) mmol/L Potassium 3.9 (3.5-5.1) mmol/L Chloride 105 (98-107) mmol/L Carbon Dioxide 23 (21-32) mmol/L Anion Gap 8.0 (3-11) BUN 19 H D (7-18) mg/dl Creatinine 0.52 L (0.6-1.4) mg/dl Est Cr Clr Drug Dosing 89.0 ml/min Est GFR ( Amer) 124.3 Est GFR (Non-Af Amer) 107.3 BUN/Creatinine Ratio 37.3 H (10-20) Glucose 88 (70-99) mg/dl POC Glucose (70-99) Osmolality (280-300) mOsm/kg Calcium 7.6 L (8.5-10.1) mg/dl Magnesium 1.8 (1.8-2.4) mg/dl Urine Osmolality (500-800) mOsm/kg Vancomycin Trough 7.5 (See Comment) mcg/ml Blood Type Antibody Screen Crossmatch 01/26/19 01/25/19 01/25/19 Range/Units 04:50 16:00 11:34 WBC Cancelled RBC Cancelled Hgb Cancelled Hct Cancelled MCV Cancelled MCH Cancelled MCHC Cancelled RDW Std Deviation Cancelled RDW Coeff of Migel Cancelled Plt Count Cancelled MPV Cancelled Immature Gran % (Auto) Cancelled Neut % (Auto) Cancelled Lymph % (Auto) Cancelled Kemper % (Auto) Cancelled Eos % (Auto) Cancelled Baso % (Auto) Cancelled Immature Gran # (Auto) Cancelled Neut # (Auto) Cancelled Lymph # (Auto) Cancelled Kemper # (Auto) Cancelled Eos # (Auto) Cancelled Baso # (Auto) Cancelled Absolute Nucleated RBC Cancelled Nucleated RBC % (auto) Cancelled Neutrophils % (Manual) Cancelled Band Neutrophils % Cancelled Lymphocytes % (Manual) Cancelled Prolymphocyte % Cancelled Reactive Lymphs % (Man) Cancelled Monocytes % (Manual) Cancelled Eosinophils % (Manual) Cancelled Basophils % (Manual) Cancelled Metamyelocytes % (Man) Cancelled Myelocytes % (Man) Cancelled Promyelocytes % (Man) Cancelled Blast Cells % (Manual) Cancelled Plasma Cell % (Manual) Cancelled Other Cells % Cancelled Nucleated RBC % Cancelled Neutrophils # (Manual) Cancelled Band Neutrophils # Cancelled Total Absolute Neuts Cancelled Lymphocytes # (Manual) Cancelled Prolymphocyte # Cancelled Reactive Lymphs # Cancelled Total Abs Lymphocytes Cancelled Monocytes # (Manual) Cancelled Eosinophils # (Manual) Cancelled Basophils # (Manual) Cancelled Metamyelocytes # (Man) Cancelled Myelocytes # (Manual) Cancelled Promyelocytes # (Man) Cancelled Blast Cells # (Man) Cancelled Plasma Cell # (Manual) Cancelled Other Cells # Cancelled Nucleated RBCs # (Man) Cancelled Hypersegmented Neuts Cancelled Hyposegmented Neuts Cancelled Hypogranular Neuts Cancelled Large Granular Lymphs Cancelled # Lrg Granular Lymphs Cancelled Hairy Cells Cancelled Smudge Cells Cancelled Toxic Granulation Cancelled Toxic Vacuolation Cancelled Dohle Bodies Cancelled Akira Rods Cancelled Platelet Estimate Cancelled Hypogranular Platelets Cancelled Clumped Platelets Cancelled Giant Platelets Cancelled Platelet Satelliting Cancelled RBC Morphology Cancelled Polychromasia Cancelled Hypochromasia Cancelled Poikilocytosis Cancelled Basophilic Stippling Cancelled Anisocytosis Cancelled Microcytosis Cancelled Macrocytosis Cancelled Spherocytes Cancelled Pappenheimer Bodies Cancelled Sickle Cells Cancelled Target Cells Cancelled Tear Drop Cells Cancelled Ovalocytes Cancelled Stomatocytes Cancelled Loera-Forbes Bodies Cancelled Echinocytes Cancelled Acanthocytes (Spur) Cancelled Rouleaux Cancelled RBC Agglutinates Cancelled Schistocytes Cancelled RBC Morph Comment Cancelled Sezary Cell Cancelled Sodium 135 L (136-145) mmol/L Potassium 4.0 (3.5-5.1) mmol/L Chloride 104 (98-107) mmol/L Carbon Dioxide 25 (21-32) mmol/L Anion Gap 6.0 (3-11) BUN 12 (7-18) mg/dl Creatinine 0.73 (0.6-1.4) mg/dl Est Cr Clr Drug Dosing 63.4 ml/min Est GFR ( Amer) 108.2 Est GFR (Non-Af Amer) 93.3 BUN/Creatinine Ratio 16.8 (10-20) Glucose 123 H (70-99) mg/dl POC Glucose 121 H (70-99) Osmolality (280-300) mOsm/kg Calcium 8.0 L (8.5-10.1) mg/dl Magnesium (1.8-2.4) mg/dl Urine Osmolality (500-800) mOsm/kg Vancomycin Trough (See Comment) mcg/ml Blood Type Antibody Screen Crossmatch 01/25/19 01/25/19 01/24/19 Range/Units 01:58 01:04 11:14 WBC RBC Hgb Hct MCV MCH MCHC RDW Std Deviation RDW Coeff of Migel Plt Count MPV Immature Gran % (Auto) Neut % (Auto) Lymph % (Auto) Kemper % (Auto) Eos % (Auto) Baso % (Auto) Immature Gran # (Auto) Neut # (Auto) Lymph # (Auto) Kemper # (Auto) Eos # (Auto) Baso # (Auto) Absolute Nucleated RBC Nucleated RBC % (auto) Neutrophils % (Manual) Band Neutrophils % Lymphocytes % (Manual) Prolymphocyte % Reactive Lymphs % (Man) Monocytes % (Manual) Eosinophils % (Manual) Basophils % (Manual) Metamyelocytes % (Man) Myelocytes % (Man) Promyelocytes % (Man) Blast Cells % (Manual) Plasma Cell % (Manual) Other Cells % Nucleated RBC % Neutrophils # (Manual) Band Neutrophils # Total Absolute Neuts Lymphocytes # (Manual) Prolymphocyte # Reactive Lymphs # Total Abs Lymphocytes Monocytes # (Manual) Eosinophils # (Manual) Basophils # (Manual) Metamyelocytes # (Man) Myelocytes # (Manual) Promyelocytes # (Man) Blast Cells # (Man) Plasma Cell # (Manual) Other Cells # Nucleated RBCs # (Man) Hypersegmented Neuts Hyposegmented Neuts Hypogranular Neuts Large Granular Lymphs # Lrg Granular Lymphs Hairy Cells Smudge Cells Toxic Granulation Toxic Vacuolation Dohle Bodies Akira Rods Platelet Estimate Hypogranular Platelets Clumped Platelets Giant Platelets Platelet Satelliting RBC Morphology Polychromasia Hypochromasia Poikilocytosis Basophilic Stippling Anisocytosis Microcytosis Macrocytosis Spherocytes Pappenheimer Bodies Sickle Cells Target Cells Tear Drop Cells Ovalocytes Stomatocytes Loera-Forbes Bodies Echinocytes Acanthocytes (Spur) Rouleaux RBC Agglutinates Schistocytes RBC Morph Comment Sezary Cell Sodium (136-145) mmol/L Potassium (3.5-5.1) mmol/L Chloride (98-107) mmol/L Carbon Dioxide (21-32) mmol/L Anion Gap (3-11) BUN (7-18) mg/dl Creatinine (0.6-1.4) mg/dl Est Cr Clr Drug Dosing ml/min Est GFR ( Amer) Est GFR (Non-Af Amer) BUN/Creatinine Ratio (10-20) Glucose (70-99) mg/dl POC Glucose (70-99) Osmolality (280-300) mOsm/kg Calcium (8.5-10.1) mg/dl Magnesium (1.8-2.4) mg/dl Urine Osmolality (500-800) mOsm/kg Vancomycin Trough (See Comment) mcg/ml Blood Type A Negative Antibody Screen NEGATIVE Crossmatch See Detail
--- NOTE | 2019-01-26 12:32 | Hospitalist Progress Note ---
Date of Service January 26, 2019 Assessment & Plan (1) Upper GI bleed: (2) Anemia: Patient is a 73 yr old male with H/O Kevin's, Esophageal adenocarcinoma and other problems presents [facility] for coffee grounds emesis. Acute Upper GI bleeding: In setting of Kevin's, Esophageal adenocarcinoma S/P 3 units PRBC Could have some bleeding from the tumor IV Protonix ggt>>IV BID Monitor H&H Planned for outpatient endoscopic mucosal resection by Dr. Morejon in [place] Received IV fluids Appreciate GI Input Hb:8.7 today Planned to be transferred to [facility] for advanced endoscopy and definitive treatment as per GI recommendations (3) Kevin esophagus: (4) History of esophageal cancer: H/O Kevin's esophagus. 11/20/18 EGD: Nodular ulcerated lesion. EUS: Mass lower third esophagus. Biopsies positive for adenocarcinoma. Planned for outpatient endoscopic mucosal resection by Dr. Morejon in [place] Hyponatremia: Sodium levels:135>>>120>>125>>136 Asymptomatic Likely due to Polydipsia Urine Sodium: 99 Fluid restriction IV fluids as per Nephrology Seizure precautions Monitor sodium levels closely Appreciate Nephrology help (5) Leukocytosis: (6) Elevated lactic acid level: Possible Pneumonia Continue IV Abx for now Initial Blood Culture: No growth Urine Culture:No growth Repeat Blood Cultures: No growth to date Lactate levels normalized Metabolic Encephalopathy CT head:No acute intracranial findings Could be multifactorial: acute infection, electrolyte imbalance, schizophrennia mental status seemed to back to baseline (7) Hypomagnesemia: Resolved monitor (8) COPD (chronic obstructive pulmonary disease): On albuterol or ipratropium. 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 Arely Bo and Subjective Patient is seen and examined at bedside Patient is doing much better today Hb:8.7 today No gross bleeding Denies chest pain, SOB, dizziness Has Chronic cough Discussed with GI today--Planned to be transferred to [facility] for advanced endoscopy and definitive treatment Patient agreed with the plan Physical Exam Vital Signs (Past 24 Hours): Last Vital Signs Temp 36.8 C 01/26/19 12:01 Pulse 102 H 01/26/19 12:01 Resp 15 01/26/19 12:01 BP 125/73 01/26/19 12:01 Pulse Ox 96 01/26/19 12:01 Physical Exam: Physical Exam: Vitals signs as noted above General Appearance:Thin, no apparent distress, drowsy Head: normocephalic, Atraumatic Eyes: normal inspection, EOMI Neck: supple, Trachea midline Respiratory/Chest: Decreased breath sounds, CTA Cardiovascular: S1, S2, No murmur Abdomen/GI:Soft, Non tender, Bowel sounds present Extremities/Musculoskelatal:normal inspection, no edema Neurologic/Psych:grossly no focal neurological deficits Skin: normal color, warm Results & Data Laboratory Results Short CBC 01/26/19 01/26/19 Range/Units 04:50 05:36 WBC Cancelled 13.62 H Hgb Cancelled 8.7 L Hct Cancelled 25.1 L Plt Count Cancelled 275 BMP 01/25/19 01/26/19 16:00 04:50 Sodium 135 L 136 Potassium 4.0 3.9 Chloride 104 105 Carbon Dioxide 25 23 BUN 12 19 H D Creatinine 0.73 0.52 L Glucose 123 H 88 Calcium 8.0 L 7.6 L
--- NOTE | 2019-01-26 14:48 | Discharge Summary ---
Date of Service January 26, 2019 Admission HPI Per Admitting Provider Pt is 73 y/o M with PMH COPD, HTN, Kevin's esophagus, recent diagnosis of esophageal adenocarcinoma in 11/2017, paranoid schizophrenia, chronic hyponatremia, tobacco use, presented to ER from [facility] with complaint of coffee-ground emesis. Reported staff found patient this morning with coffee-ground emesis on his bed. And staff there report pt was hypotensive with SBP 90's and P: 140. Patient reports some epigastric abdominal pressure. He denies any current nausea. Reports had BM yesterday unsure of any changes in coloration. Reported that pt had metoprolol, binzotropine, divalporex this am and hasn't eaten since midnight. Denies fever/chills, diaphoresis, FARIAS, dizziness, syncope, vision changes, neck pain, CP, SOB, orthopnea, palpitations, cough, sore throat, choking, otalgia, rhinorrhea, paresthesias, weakness, extremity edema, rashes, urinary symptoms. 11/20/18 EGD: Nodular ulcerated lesion. EUS: Mass lower third esophagus. Biopsies positive for adenocarcinoma. Patient was to follow with GI at [facility] and had appointment today. Upon ER arrival patient afebrile, pulse: 120, respirations 20, BP 71/56, 90% on room air. No further emesis noted while in ER. H/H: 7.2/20.8. INR: 1.5, BUN: 49, Cr: 1.0. WBC: 15, lactate: 5. Patient was given 1 L NSS, Zofran, Protonix bolus and drip, Zosyn, vancomycin and was typed and crossed for 2 units PRBCs with 1st unit being transfused. P: 120, BP: 86/54. Pt will be admitted to ICU for further observation and treatment. Admission Exam Per Admitting Provider General: no acute distress, thin, chronic ill appearance Head: normocephalic, atraumatic Eyes: PERRL, EOM's intact, conjunctiva non-injected, anicteric ENT: normal inspection external ears, nose, mucous membranes dry, frequent tongue protrusion and licking lips Neck: supple, trachea midline Lungs: clear, no respiratory distress, no wheezing/rhonchi/rales CV: tachycardia at 120, regular rhythm, no pretibial edema Abd: normal BS, soft, mild tenderness to epigastric region Ext: no cyanosis, no calf tenderness Neuro: A&O x 3, no focal deficits noted Skin: warm, dry Principal Diagnosis Discharge Information Discharge Diagnosis Esophageal adenocarcinoma Upper GI bleed Hyponatremia Possible Aspiration Pneumonia Metabolic Encephalopathy Discharge Goals Decrease discomfort,Improve disease control, Improve function Discharge Activity Limitations Per instructions/follow-up Discharge Data Allergies Allergy/AdvReac Type Severity Reaction Status Date / Time buspirone Allergy Unknown Verified 01/22/19 10:35 clonazepam Allergy Unknown unknown Verified 01/22/19 10:35 clozapine Allergy Unknown Verified 01/22/19 10:35 Consultations 01/22/19 11:02 ED Decision to Admit Stat 01/22/19 11:20 Consult Technical Project Lead Stat 01/22/19 13:28 Consult Case Management - Discharge Planning Routine Consult Gastroenterology Routine Consult Technical Project Lead Routine 01/24/19 09:12 Consult Nephrology Routine 01/25/19 07:31 Consult Gastroenterology Routine 01/26/19 14:27 Burn CD for patient Stat Procedures Performed CT ABD: 1. No evidence of bowel obstruction. No evidence of free air 2. Moderate fecal retention particularly involving the right colon 3. Nonvisualization the appendix. No acute intra-abdominal inflammatory changes identified 4. No evidence of retroperitoneal hemorrhage 5. Hiatal hernia 6. Basilar airspace opacities left greater than right. A pneumonia must be considered. CT head: No acute intracranial findings Ordered Studies 01/25/19 02:43 CT abd pelvis IV con only Urgent 01/25/19 02:50 CT head/brain wo con Urgent Hospital Course (1) Upper GI bleed: (2) Anemia: Patient is a 73 yr old male with H/O Kevin's, Esophageal adenocarcinoma and other problems presents [facility] for coffee grounds emesis. Acute Upper GI bleeding: In setting of Kevin's, Esophageal adenocarcinoma S/P 3 units PRBC Could have some bleeding from the tumor IV Protonix ggt>>IV BID Monitor H&H Planned for outpatient endoscopic mucosal resection by Dr. Morejon in [place] Received IV fluids Appreciate GI Input Hb:8.7 today Planned to be transferred to [facility] for advanced endoscopy and definitive treatment as per GI recommendations (3) Kevin esophagus: (4) History of esophageal cancer: H/O Kevin's esophagus. 11/20/18 EGD: Nodular ulcerated lesion. EUS: Mass lower third esophagus. Biopsies positive for adenocarcinoma. Planned for outpatient endoscopic mucosal resection by Dr. Morejon in [place] Hyponatremia: Sodium levels:135>>>120>>125>>136 Asymptomatic Likely due to Polydipsia Urine Sodium: 99 Fluid restriction IV fluids as per Nephrology Seizure precautions Monitor sodium levels closely Appreciate Nephrology help (5) Leukocytosis: (6) Elevated lactic acid level: Possible Pneumonia Continue IV Zosyn Day #2 for now Initial Blood Culture: No growth Urine Culture:No growth Repeat Blood Cultures: No growth to date Lactate levels normalized Metabolic Encephalopathy CT head:No acute intracranial findings Could be multifactorial: acute infection, electrolyte imbalance, schizophrennia mental status seemed to back to baseline (7) Hypomagnesemia: Resolved monitor (8) COPD (chronic obstructive pulmonary disease): On albuterol or ipratropium. 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 Areyl Bo and Total Time Total Time Spent Total Time Spent (In Minutes): 45 minutes Total Time Includes: Examination of the Patient, Discharge Planning, Medication Reconciliation, Communication With Other Providers and Other Discharge Plan Discharge Items Patient Disposition: Transfer Acute Care Hospital Reason For Visit: GI BLEED Discharge Diagnosis: Esophageal adenocarcinoma Upper GI bleed Hyponatremia Possible Aspiration Pneumonia Metabolic Encephalopathy Discharge Goals: Decrease discomfort, Improve disease control and Improve function Activity: Per 'Additional Instructions' section Exercise/Sports: Wait until after follow-up appointment Non-emergency contact: Primary Care Provider and Picking Supervisor Call non-emergency contact if: you have any medication questions, your symptoms worsen, your pain is not controlled, your pain is worsening, your pain is unusual for you, your pain is concerning for you and you have a fever Follow-up/Referrals: [facility] [Primary Care Provider] - Diet: Regular Fluids: 1500ml (6 cups) Diet Texture: Dental soft (bite-sized) Liquid Consistency: [place] thick Addtl Provider Instructions: Follow up with your Physician Dr.Yanni Bo and Dr.David Morejon at [facility] for further management is on IV Protonix BID and IV Zosyn while at [facility] Prescriptions: Continued benztropine 0.5 mg Tablet 0.5 mg PO BID RF: 0 divalproex 250 mg Tablet,Delayed Release (Dr/Ec) 250 mg PO BID RF: 0 omeprazole 40 mg Capsule,Delayed Release(Dr/Ec) 40 mg PO QAM RF: 0 acetaminophen [Acetaminophen Extra Strength] 500 mg Tablet 1,000 mg PO Q8H PRN (Reason: Pain) RF: 0 risperidone 2 mg Tablet 2 mg PO BID RF: 0 Dairy Relief 9,000 unit Tablet 9,000 unit PO QID RF: 0 trazodone 100 mg Tablet 100 mg PO HS RF: 0 ranitidine HCl 150 mg Tablet 150 mg PO BID RF: 0 calcium carbonate [Calcium Antacid] 200 mg calcium (500 mg) Tablet,Chewable 200 - 400 mg PO DAILY RF: 0 metoprolol succinate 25 mg Tablet Extended Release 24 Hr 12.5 mg PO QAM RF: 0 albuterol sulfate [Ventolin HFA] 90 mcg/actuation Hfa Aerosol Inhaler 2 puff INHALATION QID PRN (Reason: sob) RF: 0 quetiapine 400 mg Tablet 400 mg PO QPM RF: 0 guaifenesin [Mucinex] 600 mg Tablet Extended Release 12hr 600 mg PO BID PRN (Reason: Congestion) RF: 0 polyethylene glycol 3350 [Miralax] 17 gram powder in packet 17 gm PO DAILY PRN (Reason: Constipation) RF: 0 loperamide [Imodium A-D] 2 mg Capsule 2 mg PO UD MDD 4 caplets/24 Hours PRN (Reason: Loose Stool) RF: 0 Preparation H 0.25-14-74.9 % Ointment 1 applic [place] TID PRN (Reason: Hemorrhoids) RF: 0 ipratropium bromide 0.02 % Solution 0.5 mg NEB Q6R PRN (Reason: shortness of breath or wheezing) Qty: 75 RF: 1 potassium chloride 10 mEq tablet,ER particles/crystals 10 meq PO BID RF: 0 diphenhydramine HCl [Banophen] 25 mg Capsule 25 mg PO HS PRN (Reason: Tremor(S)) RF: 0 alum-mag hydroxide-simeth [Rulox] 200-200-20 mg/5 mL Suspension 10 ml PO Q4H PRN (Reason: Diarrhea) RF: 0 Reguloid Powder 1 tsp PO DAILY PRN (Reason: Indigestion) RF: 0 Discontinued aspirin [Aspirin Low Dose] 81 mg Tablet,Delayed Release (Dr/Ec) 81 mg PO QAM RF: 0 Stand-Alone Forms: [facility] Discharge Orders: Discharge Order (Routine); Ordered 01/26/19 Ordered By: Kofi Schwab Admission Data Admit Date/Time: 01/22/19 12:14 Attending Provider: Yahir Swift Admit Provider: Akira Guzman Primary Care Provider: [facility] Gomez,[facility] Other Providers: Sylvain Griffith ; Luis Antonio Mcclure ; Akira Guzman ; Anastasiya Rowell Service: Intensive Care Unit Other Interventions: Discharge Summary Assessment (RN) Last Done: 01/26/19 13:13
== END 2019-01-26 16:15 | disposition short-term general hospital (02) | DRG 374 ==
LOC: ED 09:10 → 1E 12:14

== ENCOUNTER 2019-02-11 11:52 | Inpatient (IN) ==
[2019-02-11] MEDS ORDERED: SODIUM CHLORIDE 0.9% 1000ML 500 ML IV ONE ×2 (12:34→14:21)
[2019-02-11 12:51] LABS: Alanine Aminotransferase 13 U/L (12-78); Albumin Level 3.1 gm/dl (3.4-5.0); Aspartate Aminotransferase 8 U/L (15-37); BUN Creatinine Ratio 25.3 (10-20); Bilirubin Direct < 0.1 mg/dl (0-0.2); Blood Urea Nitrogen 14 mg/dl (7-18); Calcium 8.3 mg/dl (8.5-10.1); Carbon Dioxide 25 mmol/L (21-32); Chloride 96 mmol/L (98-107); Creatinine Clr Calc Pharmacy 83.5 ml/min; Est GFR (African American) 120.6; Est GFR (Non-African American) 104.1; Glucose 75 mg/dl (70-99); Magnesium 1.3 mg/dl (1.8-2.4); Potassium 3.6 mmol/L (3.5-5.1); Sodium 129 mmol/L (136-145)
[2019-02-11 12:53] LABS: Basophils # (auto) 0.01 K/uL (0-0.2); Basophils % (auto) 0.1 %; Hematocrit (blood only) 30.7 % (42-52); Hemoglobin 10.4 g/dL (14.0-18.0); Immature Granulocytes # (auto) 0.05 K/uL (0.00-0.02); Immature Granulocytes % (auto) 0.3 %; Lymphocytes # (auto) 0.81 K/uL (1.2-3.4); Mean Corpuscular Hgb Conc 33.9 g/dL (32-36); Mean Corpuscular Volume 80.6 fL (80-100); Mean Platelet Volume 9.5 fL (7.4-10.4); Monocytes # (auto) 0.93 K/uL (0.11-0.59); Monocytes % (auto) 5.8 %; Neutrophils # (auto) 14.31 K/uL (1.4-6.5); Neutrophils % (auto) 88.8 %; Platelet Count 451 K/uL (130-400); RDW Coefficient of Variation 15.9 % (11.5-14.5); RDW Standard Deviation 46.7 fL (36.4-46.3); Red Blood Count 3.81 M/uL (4.7-6.1); White Blood Count 16.11 K/uL (4.8-10.8)
[2019-02-11 12:54] LABS: INR 1.2 (0.9-1.1); Partial Thromboplastin Ratio 0.9; Partial Thromboplastin Time 25.6 Seconds (21.0-31.0); Prothrombin Time 11.9 Seconds (9.0-12.0)
[2019-02-11 12:55] LABS: Appearance Urine Clear (Clear); Bilirubin Urine Negative (Negative); Blood Urine Negative (Negative); Color Urine Yellow; Glucose Urine UA Negative (Negative); Ketones Urine Negative (Negative); Leukocyte Esterase Urine Negative (Negative); Nitrite Urine Negative (Negative); Protein Urine Negative (Negative); Specific Gravity Urine 1.011 (1.000-1.030); Urobilinogen Urine Negative (Negative); pH Urine 8.5 (4.5-7.5)
[2019-02-11 12:57] LABS: Alkaline Phosphatase 91 U/L (45-117); Bilirubin,Total 0.4 mg/dl (0.2-1); Total Protein 6.9 gm/dl (6.4-8.2); Troponin I < 0.015 ng/ml (0-0.045)
--- NOTE | 2019-02-11 13:22 | CT Scan Report ---
CT head/brain wo con CLINICAL HISTORY: 73 years-old Male with gait imbalance ambulatory dusfxn. Acute altered gait TECHNIQUE: Multiple axial CT images of the head were obtained without contrast. A dose lowering tech nique was utilized adhering to the principles of ALARA. CT DOSE: 788.63 mGycm COMPARISON: CT head 01/25/2019. FINDINGS: No acute intracranial hemorrhage, midline shift, intracranial mass, hydrocephalus, territorial ischem ia or abnormal extra-axial collection. Age-related involutional changes. Mild degree of ill-defined w terrence matter hypodensities are suggestive of chronic microvascular ischemic changes. Cerebral vascular calcifications are also noted. The calvarium is intact. The paranasal sinuses, mastoid air cells, and middle ear cavities are clear . IMPRESSION: No acute intracranial abnormality. The above report was generated using voice recognition software. It may contain grammatical, syntax o r spelling errors. Electronically signed by: Silas Mclaughlin M.D. 02/11/2019 1:21 PM
[2019-02-11 13:35] LABS: Influenza A virus by PCR Neg for Influ A (Neg); Influenza B virus by PCR Neg for Influ B (Neg)
--- NOTE | 2019-02-11 14:11 | XRay Report ---
XR chest 2V routine HISTORY: cough ro PNA COMPARISON: Chest 01/25/2019. FINDINGS: No pneumothorax. No pleural effusions. The heart is mildly enlarged. Retrocardiac density c onsistent with a moderate hiatus hernia. There is a left mid to lower lung zone hazy airspace opaciti es and a right medial lung base hazy airspace opacity. This has progressed and is concerning for a pn eumonia. Possible 1.5 cm focal irregular density within the right midlung zone. IMPRESSION: 1. Progressive airspace opacities within the lungs as described above. This likely represents a pneum onia. 2. Possible 1.5 cm irregular density within the right midlung zone. Follow-up nonemergent chest CT is recommended for further evaluation Electronically signed by: Prasanna Crum M.D. 02/11/2019 2:10 PM
[2019-02-11] MEDS ORDERED: VANCOMYCIN CONSULT ACTIVE PRN ×2 (14:19→16:17)
[2019-02-11] MEDS ORDERED: VANCOMYCIN HCL 1,000 MG/270 ML BAG IV STA (14:19)
[2019-02-11] MEDS ORDERED: CEFEPIME 1,000 MG in SYRINGE 0 ML IV STA (14:19)
[2019-02-11] MEDS ORDERED: SODIUM CHLORIDE 0.9% 500 ML IV ONE (14:56)
--- NOTE | 2019-02-11 15:11 | History & Physical Report ---
Date of Service February 11, 2019 Assessment & Plan (1) Sepsis: (2) PNA (pneumonia): This is a 73-year-old white male with significant past medical history of paranoid schizophrenia, COPD, hypertension, Kevin's esophagus, recently diagnosed adenocarcinoma of the esophagus on 11/2017, recent upper GI bleed who presents to [facility] ED secondary to difficulty walking, tachycardia, cough and low blood pressure times 1 day. Patient meets SIRS/sepsis criteria and therefore is being admitted to telemetry On admission patient hypotensive with SBP < 100, tachycardic, lactate normal Hypotension/tachycardia also in setting of infection Received IVF per protocol, 2L while in ED Blood cultures drawn and received Broad spectrum IV antibiotics with cefepime and vanco Source: Pulmonary, RLL PNA -Admit to telemetry -Continue IV fluid NS +KCL +mag @ 80cc/h -Continue vanco, check MRSA screen -IV Zosyn, hx of aspiration, dosed per pharmacy -aggressive pulmonary toilet with nebs, incentive spirometry -Check pro-calcitonin -Consult speech therapy for further eval and tx, placed on slippery diet with nectar thick liquids -CBC, BMP, Mag in a.m. -repeat ECG in a.m. to monitor QT interval in setting of multiple psych medications (3) Hypomagnesemia: -Mag 1.3, will replete slowly given hypotension (4) Hyponatremia: -Chronic, 129 today, in setting of polydipsia -1500ml Fluid restriction -currently receiving IVF due to hypotension in setting of PNA (5) COPD (chronic obstructive pulmonary disease): -no acute exacerbation -continue aggressive pulm toilet due to PNA (6) Esophageal cancer: -recently dx adenoca of esophagus, awaiting treatment at [facility] (7) Anemia: -H/H stable at 10.4/30.7 -recent Upper GIB also in setting of current esophageal CA -follow cbc (8) HTN (hypertension): -blood pressure on low side, will hold metoprolol (9) Paranoid schizophrenia: -continue depakote, risperdal, seroquel, trazodone, cogentin -follows with psych as outpatient (10) Kevin esophagus: -continue PPI and ranitidine (11) GERD (gastroesophageal reflux disease): -continue PPI and ranitidine (12) Tobacco abuse: -encourage tobacco cessation (13) DVT prophylaxis: -SCDS, avoid chemical prophylaxis for now given recent UGIB Disposition: [facility], case management consulted Follow up: PCP upon discharge Patient was seen and examined in collaboration with Dr. Swift, please see addendum Starting 02/12/19 patient will be under the care of Dr. Grider History of Present Illness Chief Complaint: Hypotension, tachycardia, cough and shuffling gait at nursing facility Primary Care Provider: [facility] This is a 73-year-old white male with significant past medical history of paranoid schizophrenia, COPD, hypertension, Kevin's esophagus, recently diagnosed adenocarcinoma of the esophagus on 11/2017, recent upper GI bleed who presents to [facility] ED secondary to difficulty walking, tachycardia, cough and low blood pressure times 1 day. Patient recently hospitalized 01/22 to 01/26/19 secondary to upper GI bleed in setting of recent diagnosis of adenocarcinoma of the esophagus and known Kevin's esophagus. At that hospitalization he did receive 3 units of PRBC. He was transferred to [facility] for hopeful treatment of his and esophageal adenocarcinoma; however, no further procedure was performed and his GI bleed ceased. While nursing facility he was noted to have shuffling gait, "this is always how I know I have pneumonia." Further he was tachycardic, hypotensive and therefore was sent to ED for further evaluation. He does complain of a chronic nonproductive cough as well as shortness breath with exertion which is unchanged. His appetite has been diminished and he has noted some weight loss, unknown amount. Denies fever, chills, sweats, lightheadedness, dizziness, chest pain, shortness of breath at rest, nausea, vomiting, abdominal pain, dysuria, increased frequency or urgency with urination, hematuria, hematochezia, hemoptysis. Patient has had multiple admissions secondary to pneumonia. During his recent admission he underwent speech therapy evaluation and dx with soto aspiration, recommended slippery texture with nectar thick liquids. Unknown if following at personal [facility]. Allergies Allergy/AdvReac Type Severity Reaction Status Date / Time buspirone Allergy Unknown Verified 02/11/19 12:45 clonazepam Allergy Unknown unknown Verified 02/11/19 12:45 clozapine Allergy Unknown Verified 02/11/19 12:45 Home Medications Home Medications Medication Instructions Recorded Confirmed Type Dairy Relief 9,000 unit PO QID 09/09/18 02/11/19 History acetaminophen [Acetaminophen Extra 1,000 mg PO Q8H PRN 09/09/18 02/11/19 History Strength] albuterol sulfate [Ventolin HFA] 2 puff INHALATION QID PRN 09/09/18 02/11/19 History calcium carbonate [Calcium Antacid] 200 - 400 mg PO DAILY 09/09/18 02/11/19 History guaifenesin [Mucinex] 600 mg PO BID PRN 09/09/18 02/11/19 History metoprolol succinate 25 mg PO QAM 09/09/18 02/11/19 History omeprazole 40 mg PO QAM 09/09/18 02/11/19 History quetiapine 400 mg PO QPM 09/09/18 02/11/19 History ranitidine HCl 150 mg PO BID 09/09/18 02/11/19 History trazodone 100 mg PO HS 09/09/18 02/11/19 History Preparation H 1 applic [place] TID PRN 10/16/18 02/11/19 History ipratropium bromide 0.5 mg NEB Q6R PRN #75 ml 10/19/18 02/11/19 Rx potassium chloride 10 meq PO BID 10/28/18 02/11/19 History Reguloid 1 tsp PO DAILY PRN 01/06/19 02/11/19 History alum-mag hydroxide-simeth [Rulox] 10 ml PO Q4H PRN 01/06/19 02/11/19 History diphenhydramine HCl [Banophen] 25 mg PO HS PRN 01/06/19 02/11/19 History polyethylene glycol 3350 [Miralax] 17 gm PO DAILY PRN 01/22/19 02/11/19 History benztropine 0.5 mg PO BID 02/11/19 02/11/19 History divalproex 250 mg PO BID 02/11/19 02/11/19 History risperidone 2 mg PO BID 02/11/19 02/11/19 History Past Med/Surg History Medical History Esophageal cancer (Acute) History of esophageal cancer (Chronic) 11/20/18 EGD: Nodular ulcerated lesion. EUS: Mass lower third esophagus. Biopsies positive for adenocarcinoma. Paranoid schizophrenia (Chronic) COPD (chronic obstructive pulmonary disease) (Chronic) HTN (hypertension) (Chronic) GERD (gastroesophageal reflux disease) (Chronic) Tobacco abuse (Chronic) Kevin esophagus (Chronic) GI bleed Sepsis Surgical History History of esophagogastroduodenoscopy (EGD) (Chronic) History of skin graft (Chronic) as child History of bowel resection (Chronic) "for diverticulitis " in 2009 Family History Mother Stroke Thyroid disorder Father Heart attack Other Heart disease Social History Preferred Language: Tristanian Communication Ability: Effective Ear Flap Binder Required: No Beliefs That Will Affect Care: Adventism Current Living Situation: Personal Care Facility Current Living Situation Comment: [facility] Feels Safe at Home: Yes Safety Concerns: Feels Safe At This Time Smoking Status: Former smoker Hx Alcohol Use: No Hx Substance Use: No Review of Systems All systems reviewed & are unremarkable except as noted in HPI & below Physical Exam Vital Signs (Past 24 Hours): Last Vital Signs Temp 37 C 02/11/19 12:17 Pulse 102 H 02/11/19 14:05 Resp 18 02/11/19 14:05 BP 97/62 L 02/11/19 14:05 Pulse Ox 95 02/11/19 14:05 Physical Exam: Gen: Thin, frail, elderly, male, NAD, sitting up in bed, pleasant, conversing easily Head: Normocephalic, Atraumatic, b/l temporal and buccal wasting Eyes: Sclera normal, no conjunctival injection, PERRLA, EOMI ENT: Gross hearing intact, normal pharynx, mucous membranes moist, absent dentition, tardive dyskinesia of tongue Neck: supple, no adenopathy, No JVD, no bruit, Resp: Clear to auscultation b/l with diminished breath sounds at bases, no wheeze, rales, rhonchi. 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 Extremities: No edema bilaterally Skin: warm, moist, no rash, negative turgor, cap refill < 2sec Neuro: Alert and oriented x 3, speech normal, + TD of tongue, good mood/affect, cran nerve 2-12 intact grossly : deferred Results & Data Laboratory Results Short CBC 02/11/19 Range/Units 11:29 WBC 16.11 H (4.8-10.8) K/uL Hgb 10.4 L (14.0-18.0) g/dL Hct 30.7 L (42-52) % Plt Count 451 H (130-400) K/uL BMP 02/11/19 11:29 Sodium 129 L Potassium 3.6 Chloride 96 L Carbon Dioxide 25 BUN 14 Creatinine 0.56 L Glucose 75 Calcium 8.3 L Cardiac Enzymes 02/11/19 Range/Units 11:29 Troponin I < 0.015 (0-0.045) ng/ml Liver Function 02/11/19 Range/Units 11:29 Total Bilirubin 0.4 (0.2-1) mg/dl Direct Bilirubin < 0.1 (0-0.2) mg/dl AST 8 L (15-37) U/L ALT 13 (12-78) U/L Alkaline Phosphatase 91 (45-117) U/L Albumin 3.1 L (3.4-5.0) gm/dl Urine 02/11/19 Range/Units 12:00 Urine Color Yellow Urine Appearance Clear (Clear) Urine pH 8.5 H (4.5-7.5) Ur Specific [place] 1.011 (1.000-1.030) Urine Protein Negative (Negative) Urine Glucose (UA) Negative (Negative) Diagnostic Findings Head CT: FINDINGS: No acute intracranial hemorrhage, midline shift, intracranial mass, hydrocephalus, territorial ischemia or abnormal extra-axial collection. Age- related involutional changes. Mild degree of ill-defined white matter hypodensities are suggestive of chronic microvascular ischemic changes. Cerebral vascular calcifications are also noted. The calvarium is intact. The paranasal sinuses, mastoid air cells, and middle ear cavities are clear. IMPRESSION: No acute intracranial abnormality. CXR: IMPRESSION: 1. Progressive airspace opacities within the lungs as described above. This likely represents a pneumonia. 2. Possible 1.5 cm irregular density within the right midlung zone. Follow-up nonemergent chest CT is recommended for further evaluation Medications Administered Vancomycin HCl (Vancomycin Hcl) 1,000 mg in 270 mls @ 125 mls/hr IV NOW STA Stop: 02/11/19 16:28 Last Admin: 02/11/19 14:33 Dose: 125 mls/hr Documented by: [id number] Discontinued Medications Sodium Chloride (Nss 1000ml) 500 mls @ 999 mls/hr IV .Q31M ONE Stop: 02/11/19 13:04 Last Infusion: 02/11/19 14:17 Dose: 0 mls/hr Documented by: [id number] Admin: 02/11/19 13:38 Dose: 999 mls/hr Documented by: [id number] Cefepime HCl 1,000 mg/ Syringe 11.3 mls @ 5.5 mls/min IV NOW STA Stop: 02/11/19 14:21 Last Admin: 02/11/19 15:04 Dose: 5.5 mls/min Documented by: [id number] Sodium Chloride (Nss 1000ml) 500 mls @ 999 mls/hr IV .Q31M ONE Stop: 02/11/19 14:51 Last Admin: 02/11/19 15:04 Dose: 999 mls/hr Documented by: [id number] ECG Rate (beats per minute): 107 Rhythm: sinus tachycardia Change: no significant change Code Status & VTE Plan Code Status Full Code VTE Prophylaxis Plan VTE Prophylaxis will be ordered: Yes Reason for no VTE drug order: Contraindicated (given recent GIB ) Supervising Physician Co-Signing Physician Notes Patient is a 73 regular old male with history of esophageal adenocarcinoma and other medical problems presents with history of ambulatory dysfunction, dry cough, tachycardia and hypotension. Patient admits to having a choking-like episode 2 weeks ago due to excessive coughing. Please review HPI for complete presentation. CT head showed no acute abnormality. Chest x-ray suggestive of progressive airspace opacities within the lungs likely suggestive of pneumonia. Also noted 1.5 cm irregular density within the right middle lung zone. On exam patient is chronically appearing, thin, frail no distress, normocephalic atraumatic, lungs decreased breath sounds, clear to auscultation S1-S2, no murmur, abdomen well-healed surgical scar noted, no pedal edema grossly no focal deficits. Patient is started on empiric antibiotics for pneumonia. Pro- calcitonin is elevated at 5.08. Blood cultures obtained. Possible aspiration. Speech therapy consulted for evaluation. PT OT consult for ambulatory dysfunction. I personally reviewed the record. Patient is interviewed and examined at bedside. Patient's care is coordinated with Una Donato PA-C. Please refer to the documentation above for details of patient's presentation and for discussion of other issues. (1) HTN (hypertension) Hypertension type: essential hypertension Qualified Code(s): I10 - Essential (primary) hypertension (2) PNA (pneumonia) Laterality: bilateral Lung location: unspecified part of lung Pneumonia type: due to unspecified organism Qualified Code(s): J18.9 - Pneumonia, unspecified organism
[2019-02-11] MEDS ORDERED: ALUMINUM/MAGNESIUM SUSP 30 ML UDC PO PRN (16:17)
[2019-02-11] MEDS ORDERED: ONDANSETRON INJ 2 MG/ML 2 ML VIAL IV PRN (16:17)
[2019-02-11] MEDS ORDERED: POLYETHYLENE (MIRALAX) 17 GM PACK PO PRN (16:17)
[2019-02-11] MEDS ORDERED: PIPERACILL/TAZOBAC CONSULT ACTIVE PRN (16:17)
[2019-02-11] MEDS ORDERED: MAGNESIUM HYDROXIDE SUSP 30 ML UDC PO PRN (16:17)
--- NOTE | 2019-02-11 16:29 | Hospitalist Progress Note ---
Date of Service February 11, 2019 Assessment & Plan (1) PNA (pneumonia): (2) Hypomagnesemia: (3) Hyponatremia: -Chronic, 129 today, in setting of polydipsia -1500ml Fluid restriction -currently receiving IVF due to hypotension in setting of PNA (4) COPD (chronic obstructive pulmonary disease): -no acute exacerbation -continue aggressive pulm toilet due to PNA (5) Esophageal cancer: -recently dx adenoca of esophagus, awaiting treatment at [facility] (6) Anemia: -H/H stable at 10.4/30.7 -recent Upper GIB also in setting of current esophageal CA -follow cbc (7) HTN (hypertension): -blood pressure on low side, will hold metoprolol (8) Paranoid schizophrenia: -continue depakote, risperdal, seroquel, trazodone, cogentin -follows with psych as outpatient (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 Roger upon discharge Subjective Patient seen and examined earlier and denied chest pain or shortness if breath. Physical Exam Vital Signs (Past 24 Hours): Last Vital Signs Temp 37 C 02/11/19 12:17 Pulse 102 H 02/11/19 14:05 Resp 18 02/11/19 14:05 BP 97/62 L 02/11/19 14:05 Pulse Ox 95 02/11/19 14:05 Constitutional: WD/WN, vitals as above Eyes: PERRL, conjunctivae normal, anicteric sclerae EOM intact bilaterally ENMT: external ear and nose normal, oropharynx normal Neck: trachea midline, no thyromegaly normal visual inspection Respiratory: normal respiratory effort, lungs clear to auscultation Cardiovascular: Rate/Rhythm: regular rate Gastrointestinal (Abdomen): normal bowel sounds, soft, nontender, no hepatosplenomegaly Musculoskeletal: Head/Neck/Chest: normocephalic and head atraumatic Psychiatric: Orientation: alert Genitourinary: salvador (1) PNA (pneumonia) Pneumonia type: due to unspecified organism Laterality: bilateral Lung location: unspecified part of lung Qualified Code(s): J18.9 - Pneumonia, unspecified organism (2) HTN (hypertension) Hypertension type: essential hypertension Qualified Code(s): I10 - Essential (primary) hypertension
[2019-02-11] MEDS ORDERED: PIPERACILLIN/TAZOBACTAM 3.375 GM in DEXTROSE 5% 100 ML IV ONE (16:45)
--- NOTE | 2019-02-11 16:58 | Emergency Department Note ---
Entered by Nia Ramos acting as a scribe for Wan Chow History of Present Illness General Chief complaint: Illness Time Seen by Provider: 02/11/19 12:29 Source: patient Limitations: no limitations History of Present Illness Provider complaint: difficulty walking Location: lower extremity Associated symptoms: + denies other symptoms (pain with urination, blood in stools); no fever/chills, no nausea/vomiting and no shortness of breath The patient is a 73 year old male who presents to the Emergency Room with complaints of difficulty walking. The patient states that he starts shuffling when he walks. The patient denies any recent falls. History is limited secondary to the patient's underlying psychiatric disease. The patient was sent from [facility] for possible pneumonia. Per the EMS note, the patient was having cough, had coarse breath sounds, tachycardia, low blood pressure. History is limited. Home Medications Home Medications Medication Instructions Recorded Confirmed Type Dairy Relief 9,000 unit PO QID 09/09/18 02/11/19 History acetaminophen [Acetaminophen Extra 1,000 mg PO Q8H PRN 09/09/18 02/11/19 History Strength] albuterol sulfate [Ventolin HFA] 2 puff INHALATION QID PRN 09/09/18 02/11/19 History calcium carbonate [Calcium Antacid] 200 - 400 mg PO DAILY 09/09/18 02/11/19 History guaifenesin [Mucinex] 600 mg PO BID PRN 09/09/18 02/11/19 History metoprolol succinate 25 mg PO QAM 09/09/18 02/11/19 History omeprazole 40 mg PO QAM 09/09/18 02/11/19 History quetiapine 400 mg PO QPM 09/09/18 02/11/19 History ranitidine HCl 150 mg PO BID 09/09/18 02/11/19 History trazodone 100 mg PO HS 09/09/18 02/11/19 History Preparation H 1 applic CO TID PRN 10/16/18 02/11/19 History ipratropium bromide 0.5 mg NEB Q6R PRN #75 ml 10/19/18 02/11/19 Rx potassium chloride 10 meq PO BID 10/28/18 02/11/19 History Reguloid 1 tsp PO DAILY PRN 01/06/19 02/11/19 History alum-mag hydroxide-simeth [Rulox] 10 ml PO Q4H PRN 01/06/19 02/11/19 History diphenhydramine HCl [Banophen] 25 mg PO HS PRN 01/06/19 02/11/19 History polyethylene glycol 3350 [Miralax] 17 gm PO DAILY PRN 01/22/19 02/11/19 History benztropine 0.5 mg PO BID 02/11/19 02/11/19 History divalproex 250 mg PO BID 02/11/19 02/11/19 History risperidone 2 mg PO BID 02/11/19 02/11/19 History Allergies Allergy/AdvReac Type Severity Reaction Status Date / Time buspirone Allergy Unknown Verified 02/11/19 12:45 clonazepam Allergy Unknown unknown Verified 02/11/19 12:45 clozapine Allergy Unknown Verified 02/11/19 12:45 Past Med/Surg History Medical History Esophageal cancer (Acute) History of esophageal cancer (Chronic) 11/20/18 EGD: Nodular ulcerated lesion. EUS: Mass lower third esophagus. Biopsies positive for adenocarcinoma. 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 Beliefs That Will Affect Care: Pent[employer]al Current Living Situation: Personal Care Facility Current Living Situation Comment: [facility] Feels Safe at Home: Yes Safety Concerns: Feels Safe At This Time Smoking Status: Former smoker Hx Alcohol Use: No Hx Substance Use: No Review of Systems Unobtainable due to mental health condition Physical Exam Vital Signs Vital Signs - 24 hr 02/11/19 12:17 02/11/19 12:44 02/11/19 13:03 Temperature 37 C Temperature Source Oral Sepsis Recent Fever Within 48 Hours No Sepsis Action Taken by Nursing No Action Required Pulse Rate 105 H Pulse Rate [Apical] 109 H 109 H Pulse Rate [Finger] Pulse Rhythm [Apical] Regular Pulse Rhythm [Finger] Pulse Strength [Finger] Respiratory Rate 18 18 Respiratory Effort / Characteristics Respiratory Depth Normal Respiratory Pattern Blood Pressure 124/72 Blood Pressure [Left Arm] Blood Pressure Mean 89 Blood Pressure Mean [Left Arm] Blood Pressure Position Lying Blood Pressure Position [Left Arm] Pulse Oximetry 96 96 97 Oxygen Delivery Method Room Air Room Air Room Air 02/11/19 14:05 02/11/19 15:51 02/11/19 16:15 Temperature Temperature Source Sepsis Recent Fever Within 48 Hours Sepsis Action Taken by Nursing Pulse Rate Pulse Rate [Apical] 102 H Pulse Rate [Finger] Pulse Rhythm [Apical] Regular Pulse Rhythm [Finger] Pulse Strength [Finger] Respiratory Rate 18 Respiratory Effort / Characteristics Non-Labored Non-Labored Spontaneous Respiratory Depth Normal Normal Respiratory Pattern Regular Regular Regular Blood Pressure Blood Pressure [Left Arm] 97/62 L Blood Pressure Mean Blood Pressure Mean [Left Arm] 73 Blood Pressure Position Blood Pressure Position [Left Arm] Lying Pulse Oximetry 95 Oxygen Delivery Method Room Air Room Air Room Air 02/11/19 16:17 02/11/19 17:38 02/11/19 19:02 Temperature 36.7 C Temperature Source Oral Sepsis Recent Fever Within 48 Hours Sepsis Action Taken by Nursing Pulse Rate 104 H Pulse Rate [Apical] Pulse Rate [Finger] 105 H 94 H Pulse Rhythm [Apical] Pulse Rhythm [Finger] Regular Pulse Strength [Finger] Normal Respiratory Rate 20 16 Respiratory Effort / Characteristics Non-Labored Non-Labored Spontaneous Respiratory Depth Normal Respiratory Pattern Blood Pressure Blood Pressure [Left Arm] 135/87 Blood Pressure Mean Blood Pressure Mean [Left Arm] 103 Blood Pressure Position Blood Pressure Position [Left Arm] Lying Pulse Oximetry 97 95 Oxygen Delivery Method Room Air Room Air 02/11/19 19:37 02/11/19 19:58 Temperature 36.6 C Temperature Source Oral Sepsis Recent Fever Within 48 Hours Sepsis Action Taken by Nursing Pulse Rate Pulse Rate [Apical] Pulse Rate [Finger] 93 H Pulse Rhythm [Apical] Pulse Rhythm [Finger] Pulse Strength [Finger] Respiratory Rate 16 Respiratory Effort / Characteristics Non-Labored Spontaneous Respiratory Depth Normal Respiratory Pattern Regular Blood Pressure Blood Pressure [Left Arm] 117/62 Blood Pressure Mean Blood Pressure Mean [Left Arm] 80 Blood Pressure Position Blood Pressure Position [Left Arm] Lying Pulse Oximetry 94 Oxygen Delivery Method Room Air Room Air HENT: Exam performed. - Head: Normocephalic and atraumatic. - Right Ear: External ear normal. No mastoid tenderness. - Left Ear: External ear normal. No mastoid tenderness. - Mouth/Throat: The oropharynx is clear and moist. No trismus in the jaw. No dental abscesses or uvula swelling. No oropharyngeal exudate or tonsillar abs cesses. EYES: Conjunctivae and EOM are normal. Pupils are equal, round, and reactive to light. Right eye exhibits no discharge. Left eye exhibits no discharge. No scleral icterus. NECK: Normal range of motion. Neck supple. No JVD present. No spinous process tenderness present. No carotid bruit present. No rigidity. No tracheal deviation and normal range of motion present. No Brudzinski's sign and no Kernig's sign noted. CV: Normal rate, regular rhythm, normal heart sounds and intact distal pulses. There is no peripheral edema. Palpable radial pulses bue. PULM/CHEST: Effort normal. rhonchi bilaterally. No respiratory distress. No stridor. He has no rales. - Chest Wall: He exhibits no tenderness. ABD: The abdomen is soft. Bowel sounds are normal. He has no distension. No mass is present. There is no tenderness. There is no rebound, no guarding, no Mcnulty's sign and no tenderness at McBurney's point. Rovsig negative. MUSC/SKEL: Normal range of motion. There is no peripheral edema, tenderness or deformity. LYMPH: No cervical adenopathy. NEURO:He has normal strength. No cranial nerve deficit or sensory deficit. SKIN: Skin is warm and dry. He is not diaphoretic. PSYCH: He has a normal mood and affect. Behavior is normal. Judgment and thought content normal. Course 1231: Past medical records reviewed. The patient was evaluated in room A4B, and a complete history and physical examination were performed. The patient has a history of esophageal cancer, GI bleed, hyponatremia, COPD, sepsis, and schizophrenia. The patient was seen on January 22 and his hemoglobin was 7.2, his white blood count want 15, was transfused with 2 units of blood, and was admitted to the ICU. 1419: Vital signs stable. Chest x-ray shows worsening pneumonia. Sodium 129. Leukocytosis 16.11. Is unclear if this hyponatremia is due to the worsening pneumonia or due to the patient's psychiatric condition. Patient be treated for H CAP with broad-spectrum antibiotics cefepime and vancomycin. Blood culture was sent. I discussed the patient's case [facility] who will [facility] the patient for further hospitalization. She states to admit to Dr. Middleton Consultations Consultation #1: Twyla Scott [facility] Hospitalist Time: 14:19 Administered Medications Benztropine Mesylate (Cogentin) 0.5 mg PO BID SOCORRO Stop: 03/13/19 20:59 Last Admin: 02/11/19 19:14 Dose: 0.5 mg Documented by: [id number] Divalproex Sodium (Depakote Delay Release) 250 mg PO BID SOCORRO Stop: 03/13/19 20:59 Last Admin: 02/11/19 19:14 Dose: 250 mg Documented by: [id number] Potassium Chloride 20 meq/Magnesium Sulfate 1 gm/ Sodium Chloride 1,012 mls @ 80 mls/hr IV .[id number] SOCORRO Stop: 02/12/19 18:14 Last Admin: 02/11/19 17:51 Dose: 80 mls/hr Documented by: [id number] Ipratropium [place] (Atrovent 0.02% 0.5mg/2.5ml) 0.5 mg INH Q6R SOCORRO Stop: 03/13/19 19:59 Last Admin: 02/11/19 18:59 Dose: 0.5 mg Documented by: [id number] Lactase (Lactaid) 9,000 units PO QIDM SOCORRO Stop: 03/13/19 16:59 Last Admin: 02/11/19 19:12 Dose: 9,000 units Documented by: [id number] Admin: 02/11/19 17:59 Dose: 9,000 units Documented by: [id number] Levalbuterol HCl (Xopenex 0.63 Mg/3 Ml Neb) 0.63 mg NEB Q6R SOCORRO Stop: 03/13/19 19:59 Last Admin: 02/11/19 19:00 Dose: 0.63 mg Documented by: [id number] Potassium Chloride (Klor-Con M10) 10 meq PO BID SOCORRO Stop: 03/13/19 20:59 Last Admin: 04/03/19 19:13 Dose: 10 meq Documented by: [id number] Quetiapine Fumarate (Seroquel) 400 mg PO QPM SOCORRO Stop: 03/13/19 20:59 Last Admin: 02/11/19 19:13 Dose: 400 mg Documented by: [id number] Ranitidine HCl (Zantac) 150 mg PO BID SOCORRO Stop: 03/13/19 20:59 Last Admin: 02/11/19 19:13 Dose: 150 mg Documented by: [id number] Risperidone (Risperdal) 2 mg PO BID SOCORRO Stop: 03/13/19 20:59 Last Admin: 02/11/19 19:13 Dose: 2 mg Documented by: [id number] Trazodone HCl (Desyrel) 100 mg PO HS SOCORRO Stop: 03/13/19 20:59 Last Admin: 02/11/19 19:13 Dose: 100 mg Documented by: [id number] Discontinued Medications Sodium Chloride (Nss 1000ml) 500 mls @ 999 mls/hr IV .Q31M ONE Stop: 02/11/19 13:04 Last Infusion: 02/11/19 14:17 Dose: 0 mls/hr Documented by: [id number] Admin: 02/11/19 13:38 Dose: 999 mls/hr Documented by: [id number] Vancomycin HCl (Vancomycin Hcl) 1,000 mg in 270 mls @ 125 mls/hr IV NOW STA Stop: 02/11/19 16:28 Last Infusion: 02/11/19 17:00 Dose: 0 mls/hr Documented by: [id number] Admin: 02/11/19 14:33 Dose: 125 mls/hr Documented by: [id number] Cefepime HCl 1,000 mg/ Syringe 11.3 mls @ 5.5 mls/min IV NOW STA Stop: 02/11/19 14:21 Last Admin: 02/11/19 15:04 Dose: 5.5 mls/min Documented by: [id number] Sodium Chloride (Nss 1000ml) 500 mls @ 999 mls/hr IV .Q31M ONE Stop: 02/11/19 14:51 Last Infusion: 02/11/19 16:19 Dose: 0 mls/hr Documented by: [id number] Admin: 02/11/19 15:04 Dose: 999 mls/hr Documented by: [id number] Sodium Chloride (Nss) 500 mls @ 999 mls/hr IV .Q31M ONE Stop: 02/11/19 15:26 Last Admin: 02/11/19 16:25 Dose: Not Given Documented by: [id number] Piperacillin Sod/Tazobactam (Sod 3.375 gm/ Dextrose) 115 mls @ 230 mls/hr IV NOW ONE; Protocol Stop: 02/11/19 17:14 Last Infusion: 02/11/19 17:51 Dose: 0 mls/hr Documented by: [id number] Admin: 02/11/19 17:17 Dose: 230 mls/hr Documented by: [id number] Medical Decision Making Medical Records Attestation: I reviewed the patient's medical records. Home Medications Current Medication List: was personally reviewed by me Laboratory Data Attestation: I reviewed the patient's lab results. Result diagrams: 02/11/19 11:29 02/11/19 11:29 Lab Results 02/11/19 02/11/19 02/11/19 Range/Units 11:29 11:29 11:29 WBC 16.11 H (4.8-10.8) K/uL RBC 3.81 L (4.7-6.1) M/uL Hgb 10.4 L (14.0-18.0) g/dL Hct 30.7 L (42-52) % MCV 80.6 (80-100) fL MCH 27.3 (25-34) pg MCHC 33.9 (32-36) g/dL RDW Std Deviation 46.7 H (36.4-46.3) fL RDW Coeff of Migel 15.9 H (11.5-14.5) % Plt Count 451 H (130-400) K/uL MPV 9.5 (7.4-10.4) fL Immature Gran % (Auto) 0.3 % Neut % (Auto) 88.8 % Lymph % (Auto) 5.0 % [place] % (Auto) 5.8 % Eos % (Auto) 0.0 % Baso % (Auto) 0.1 % Immature Gran # (Auto) 0.05 H (0.00-0.02) K/uL Neut # (Auto) 14.31 H (1.4-6.5) K/uL Lymph # (Auto) 0.81 L (1.2-3.4) K/uL [place] # (Auto) 0.93 H (0.11-0.59) K/uL Eos # (Auto) 0.00 (0-0.5) K/uL Baso # (Auto) 0.01 (0-0.2) K/uL PT 11.9 (9.0-12.0) Seconds INR 1.2 H (0.9-1.1) APTT 25.6 (21.0-31.0) Seconds PTT Ratio 0.9 Sodium 129 L (136-145) mmol/L Potassium 3.6 (3.5-5.1) mmol/L Chloride 96 L (98-107) mmol/L Carbon Dioxide 25 (21-32) mmol/L Anion Gap 8.0 (3-11) BUN 14 (7-18) mg/dl Creatinine 0.56 L (0.6-1.4) mg/dl Est Cr Clr Drug Dosing 83.5 ml/min Est GFR ( Amer) 120.6 Est GFR (Non-Af Amer) 104.1 BUN/Creatinine Ratio 25.3 H (10-20) Glucose 75 (70-99) mg/dl Lactate (0.4-2.0) mmol/L Calcium 8.3 L (8.5-10.1) mg/dl Magnesium 1.3 L (1.8-2.4) mg/dl Total Bilirubin 0.4 (0.2-1) mg/dl Direct Bilirubin < 0.1 (0-0.2) mg/dl AST 8 L (15-37) U/L ALT 13 (12-78) U/L Alkaline Phosphatase 91 (45-117) U/L Troponin I < 0.015 (0-0.045) ng/ml Total Protein 6.9 (6.4-8.2) gm/dl Albumin 3.1 L (3.4-5.0) gm/dl Procalcitonin (0-0.5) ng/ml Urine Color Urine Appearance (Clear) Urine pH (4.5-7.5) Ur Specific [place] (1.000-1.030) Urine Protein (Negative) Urine Glucose (UA) (Negative) Urine Ketones (Negative) Urine Blood (Negative) Urine Nitrite (Negative) Urine Bilirubin (Negative) Urine Urobilinogen (Negative) Ur Leukocyte Esterase (Negative) Nasal Screen MRSA (PCR) (Negative) Influenza Type A (PCR) (Neg) Influenza Type B (PCR) (Neg) 02/11/19 02/11/19 02/11/19 Range/Units 11:29 12:00 12:58 WBC (4.8-10.8) K/uL RBC (4.7-6.1) M/uL Hgb (14.0-18.0) g/dL Hct (42-52) % MCV (80-100) fL MCH (25-34) pg MCHC (32-36) g/dL RDW Std Deviation (36.4-46.3) fL RDW Coeff of Migel (11.5-14.5) % Plt Count (130-400) K/uL MPV (7.4-10.4) fL Immature Gran % (Auto) % Neut % (Auto) % Lymph % (Auto) % [place] % (Auto) % Eos % (Auto) % Baso % (Auto) % Immature Gran # (Auto) (0.00-0.02) K/uL Neut # (Auto) (1.4-6.5) K/uL Lymph # (Auto) (1.2-3.4) K/uL [place] # (Auto) (0.11-0.59) K/uL Eos # (Auto) (0-0.5) K/uL Baso # (Auto) (0-0.2) K/uL PT (9.0-12.0) Seconds INR (0.9-1.1) APTT (21.0-31.0) Seconds PTT Ratio Sodium (136-145) mmol/L Potassium (3.5-5.1) mmol/L Chloride (98-107) mmol/L Carbon Dioxide (21-32) mmol/L Anion Gap (3-11) BUN (7-18) mg/dl Creatinine (0.6-1.4) mg/dl Est Cr Clr Drug Dosing ml/min Est GFR ( Amer) Est GFR (Non-Af Amer) BUN/Creatinine Ratio (10-20) Glucose (70-99) mg/dl Lactate (0.4-2.0) mmol/L Calcium (8.5-10.1) mg/dl Magnesium (1.8-2.4) mg/dl Total Bilirubin (0.2-1) mg/dl Direct Bilirubin (0-0.2) mg/dl AST (15-37) U/L ALT (12-78) U/L Alkaline Phosphatase (45-117) U/L Troponin I (0-0.045) ng/ml Total Protein (6.4-8.2) gm/dl Albumin (3.4-5.0) gm/dl Procalcitonin 5.08 H (0-0.5) ng/ml Urine Color Yellow Urine Appearance Clear (Clear) Urine pH 8.5 H (4.5-7.5) Ur Specific [place] 1.011 (1.000-1.030) Urine Protein Negative (Negative) Urine Glucose (UA) Negative (Negative) Urine Ketones Negative (Negative) Urine Blood Negative (Negative) Urine Nitrite Negative (Negative) Urine Bilirubin Negative (Negative) Urine Urobilinogen Negative (Negative) Ur Leukocyte Esterase Negative (Negative) Nasal Screen MRSA (PCR) (Negative) Influenza Type A (PCR) Neg for Influ A (Neg) Influenza Type B (PCR) Neg for Influ B (Neg) 02/11/19 02/11/19 Range/Units 13:00 17:00 WBC (4.8-10.8) K/uL RBC (4.7-6.1) M/uL Hgb (14.0-18.0) g/dL Hct (42-52) % MCV (80-100) fL MCH (25-34) pg MCHC (32-36) g/dL RDW Std Deviation (36.4-46.3) fL RDW Coeff of Migel (11.5-14.5) % Plt Count (130-400) K/uL MPV (7.4-10.4) fL Immature Gran % (Auto) % Neut % (Auto) % Lymph % (Auto) % [place] % (Auto) % Eos % (Auto) % Baso % (Auto) % Immature Gran # (Auto) (0.00-0.02) K/uL Neut # (Auto) (1.4-6.5) K/uL Lymph # (Auto) (1.2-3.4) K/uL [place] # (Auto) (0.11-0.59) K/uL Eos # (Auto) (0-0.5) K/uL Baso # (Auto) (0-0.2) K/uL PT (9.0-12.0) Seconds INR (0.9-1.1) APTT (21.0-31.0) Seconds PTT Ratio Sodium (136-145) mmol/L Potassium (3.5-5.1) mmol/L Chloride (98-107) mmol/L Carbon Dioxide (21-32) mmol/L Anion Gap (3-11) BUN (7-18) mg/dl Creatinine (0.6-1.4) mg/dl Est Cr Clr Drug Dosing ml/min Est GFR ( Amer) Est GFR (Non-Af Amer) BUN/Creatinine Ratio (10-20) Glucose (70-99) mg/dl Lactate 1.0 (0.4-2.0) mmol/L Calcium (8.5-10.1) mg/dl Magnesium (1.8-2.4) mg/dl Total Bilirubin (0.2-1) mg/dl Direct Bilirubin (0-0.2) mg/dl AST (15-37) U/L ALT (12-78) U/L Alkaline Phosphatase (45-117) U/L Troponin I (0-0.045) ng/ml Total Protein (6.4-8.2) gm/dl Albumin (3.4-5.0) gm/dl Procalcitonin (0-0.5) ng/ml Urine Color Urine Appearance (Clear) Urine pH (4.5-7.5) Ur Specific [place] (1.000-1.030) Urine Protein (Negative) Urine Glucose (UA) (Negative) Urine Ketones (Negative) Urine Blood (Negative) Urine Nitrite (Negative) Urine Bilirubin (Negative) Urine Urobilinogen (Negative) Ur Leukocyte Esterase (Negative) Nasal Screen MRSA (PCR) Negative (Negative) Influenza Type A (PCR) (Neg) Influenza Type B (PCR) (Neg) Imaging Data Radiologist's Impression: Radiology results as stated below per my review and the radiologist's interpretation: CT head/brain wo con CLINICAL HISTORY: 73 years-old Male with gait imbalance ambulatory dusfxn. Acute altered gait TECHNIQUE: Multiple axial CT images of the head were obtained without contrast. A dose lowering technique was utilized adhering to the principles of ALARA. CT DOSE: 788.63 mGycm COMPARISON: CT head 01/25/2019. FINDINGS: No acute intracranial hemorrhage, midline shift, intracranial mass, hydrocephalus, territorial ischemia or abnormal extra-axial collection. Age- related involutional changes. Mild degree of ill-defined white matter hypod ensities are suggestive of chronic microvascular ischemic changes. Cerebral vascular calcifications are also noted. The calvarium is intact. The paranasal sinuses, mastoid air cells, and middle ear cavities are clear. IMPRESSION: No acute intracranial abnormality. The above report was generated using voice recognition software. It may contain grammatical, syntax or spelling errors. Electronically signed by: Silas Mclaughlin M.D. 02/11/2019 1:21 PM XR chest 2V routine HISTORY: cough ro PNA COMPARISON: Chest 01/25/2019. FINDINGS: No pneumothorax. No pleural effusions. The heart is mildly enlarged. Retrocardiac density consistent with a moderate hiatus hernia. There is a left mid to lower lung zone hazy airspace opacities and a right medial lung base hazy airspace opacity. This has progressed and is concerning for a pneumonia. Possible 1.5 cm focal irregular density within the right midlung zone. IMPRESSION: 1. Progressive airspace opacities within the lungs as described above. This likely represents a pneumonia. 2. Possible 1.5 cm irregular density within the right midlung zone. Follow-up nonemergent chest CT is recommended for further evaluation Electronically signed by: Prasanna Crum M.D. 02/11/2019 2:10 PM ECG Data Attestation: I personally reviewed and interpreted this ECG as follows: Indication: other (illness ) Rate (beats per minute): 107 Rhythm: sinus rhythm Findings: + other (CO and QRS within normal limits, baseline wander and artifact due to patient movement ); no ST depression and no ST elevation Blood Pressure Blood Pressure Findings: Low blood pressure MDM Narrative Vital signs stable. Chest x-ray shows worsening pneumonia. Sodium 129. Leukocytosis 16.11. Is unclear if this hyponatremia is due to the worsening pneumonia or due to the patient's psychiatric condition. Patient be treated for H CAP with broad-spectrum antibiotics cefepime and vancomycin. Blood culture was sent. I discussed the patient's case with Twyla Monsivais Hospitalist who will evaluate the patient for further hospitalization. She states to admit to Dr. Middleton Impression & Plan HCAP (healthcare-associated pneumonia), Acute hyponatremia Discharge Plan Visit Data *Final* Discharge Date/Time: 02/11/19 16:04 Chief Complaint: Illness ED Provider: Wan Chow Discharge Problem: HCAP (healthcare-associated pneumonia), Acute hyponatremia Patient Disposition: Admitted As Inpatient Discharge Instructions Interventions: ED Discharge Assessment Last Done: 02/11/19 16:04 The scribe's documentation has been prepared under my direction and personally reviewed by me in its entirety. I confirm that the note above accurately reflects all work, treatment, procedures, and medical decision making performed by me.
[2019-02-11] MEDS ORDERED: [UNRECOGNIZED DRUG - OTHER] IV SCH (17:15)
[2019-02-11] MEDS ORDERED: POTASSIUM CHLORIDE IV SCH (17:15)
[2019-02-11] MEDS ORDERED: MAGNESIUM SULFATE IV SCH (17:15)
[2019-02-11] MEDS: LACTASE 3000 UNIT TAB PO SCH ×2 (17:59→19:12)
[2019-02-11] MEDS: IPRATROPIUM BROMIDE NEB SOLN 0.02% 2.5 ML VIAL INH SCH (18:59)
[2019-02-11] MEDS: LEVALBUTEROL HCL 0.63 MG/3 ML NEB NEB SCH (19:00)
[2019-02-11] MEDS: risperiDONE 2 MG TABLET PO SCH (19:13)
[2019-02-11] MEDS: TRAZODONE HCL 100 MG TAB PO SCH (19:13)
[2019-02-11] MEDS: QUETIAPINE FUMARATE 200 MG TAB PO SCH (19:13)
[2019-02-11] MEDS: POTASSIUM CHLORIDE 10 MEQ TABCR PO SCH (19:13)
[2019-02-11] MEDS: BENZTROPINE MESYLATE 0.5 MG TAB PO SCH (19:14)
[2019-02-11] MEDS: DIVALPROEX DELAY RELEASE 250 MG TABEC PO SCH (19:14)
[2019-02-11] MEDS ORDERED: XOPENEX/ATROVENT 0.63mg/0.5MG NEB COMBO NEB SCH (20:00)
[2019-02-11] MEDS ORDERED: MAGNESIUM SULFATE / D5W 1 GM/100 ML BAG IV ONE (21:00)
[2019-02-11] MEDS: NSS + 20MEQ KCL 20 MEQ/1,000 ML BAG IV SCH (22:45)
[2019-02-11] MEDS: PIPERACILLIN/TAZOBACTAM 3.375 GM in DEXTROSE 5% 100 ML IV SCH (22:46)
[2019-02-12] MEDS ORDERED: VANCOMYCIN HCL 750 MG in SODIUM CHLORIDE 0.9% 250 ML IV SCH
[2019-02-12] MEDS: LEVALBUTEROL HCL 0.63 MG/3 ML NEB NEB SCH ×4 (01:28→19:25)
[2019-02-12] MEDS: IPRATROPIUM BROMIDE NEB SOLN 0.02% 2.5 ML VIAL INH SCH ×4 (01:29→19:25)
[2019-02-12] MEDS: PIPERACILLIN/TAZOBACTAM 3.375 GM in DEXTROSE 5% 100 ML IV SCH ×3 (06:13→22:08)
[2019-02-12 06:40] LABS: Hematocrit (blood only) 27.4 % (42-52); Hemoglobin 9.2 g/dL (14.0-18.0); Mean Corpuscular Hgb Conc 33.6 g/dL (32-36); Mean Corpuscular Volume 80.8 fL (80-100); Mean Platelet Volume 9.4 fL (7.4-10.4); Platelet Count 391 K/uL (130-400); RDW Standard Deviation 47.6 fL (36.4-46.3); Red Blood Count 3.39 M/uL (4.7-6.1); White Blood Count 18.71 K/uL (4.8-10.8)
[2019-02-12 07:06] LABS: BUN Creatinine Ratio 22.4 (10-20); Est GFR (African American) 129.6; Est GFR (Non-African American) 111.8; Potassium 3.5 mmol/L (3.5-5.1)
[2019-02-12] MEDS: NSS + 20MEQ KCL 20 MEQ/1,000 ML BAG IV SCH (08:01)
[2019-02-12] MEDS: PANTOprazole 40 MG TAB PO SCH (08:02)
[2019-02-12] MEDS: BENZTROPINE MESYLATE 0.5 MG TAB PO SCH ×2 (08:02→20:02)
[2019-02-12] MEDS: DIVALPROEX DELAY RELEASE 250 MG TABEC PO SCH ×2 (08:03→20:04)
[2019-02-12] MEDS: risperiDONE 2 MG TABLET PO SCH ×2 (08:03→20:02)
[2019-02-12] MEDS: POTASSIUM CHLORIDE 10 MEQ TABCR PO SCH ×2 (08:03→20:02)
[2019-02-12] MEDS: LACTASE 3000 UNIT TAB PO SCH ×4 (08:04→20:03)
[2019-02-12] MEDS: METOPROLOL TARTRATE 25 MG TAB PO SCH ×2 (10:41→20:04)
[2019-02-12] MEDS: ACETAMINOPHEN 325 MG TAB PO PRN ×2 (11:09→23:21)
--- NOTE | 2019-02-12 18:28 | Hospitalist Progress Note ---
Date of Service February 12, 2019 Assessment & Plan (1) Sepsis: (2) PNA (pneumonia): This is a 73-year-old white male with significant past medical history of paranoid schizophrenia, COPD, hypertension, Kevin's esophagus, recently diagnosed adenocarcinoma of the esophagus on 11/2017, recent upper GI bleed who presents to [facility] ED secondary to difficulty walking, tachycardia, cough and low blood pressure times 1 day. Patient met SIRS/sepsis criteria on admission; On admission patient hypotensive with SBP < 100, tachycardic, lactate normal, Received IVF per protocol, 2L while in ED Blood cultures 02/11/19 were drawn and received Broad spectrum IV antibiotics with cefepime and vancomycin in the ED Hypotension/tachycardia in setting of infection -Source: Pulmonary, right lower lobe pneumonia -procalcitonin positive -has been on Zosyn currently as MRSA screen negative -aggressive pulmonary toilet with nebs, incentive spirometry -slippery minced moist diet and aspiration precautions as per speech and swallow services (3) Hypomagnesemia: admission serum magnesium 1.3 and IV supplementation was given with IV fluids serum magnesium corrected as 2 as of 02/12/19 (4) Hyponatremia: -Chronic hypnatremia with serum 129 on admission, in setting of polydipsia -on 1500ml Fluid restriction -serum sodium has corrected with IV fluids with serum sodium of 136 in AM of 02/12/19 -trending serum sodium, if the serum sodium is greater than a change of more than 8, then will consider starting D5 water or D5 1/2 normal saline to avoid overcorrecting too quickly (5) COPD (chronic obstructive pulmonary disease): -no acute exacerbation -continue aggressive pulm toilet due to PNA (6) Esophageal cancer: -recently diagnosis of adenocarcinoma of esophagus, awaiting treatment at [facility] (7) Anemia: History of recent Upper GI bleed in previous hospital stays in setting of current esophageal Cancer -CBC is stable (8) HTN (hypertension): give metoprolol tartrate as 12.5 mg BID (9) Paranoid schizophrenia: -continue depakote, risperdal, seroquel, trazodone, cogentin -will monitor QT intervals periodically -follows with psych as outpatient (10) Kevin esophagus: -continue PPI and ranitidine (11) GERD (gastroesophageal reflux disease): -continue PPI and ranitidine (12) Tobacco abuse: -encourage tobacco cessation (13) DVT prophylaxis: -SCDS, avoid chemical prophylaxis for now given recent history of Upper GI Bleed Physical Exam Vital Signs (Past 24 Hours): Last Vital Signs Temp 36.8 C 02/12/19 15:23 Pulse 73 02/12/19 15:54 Resp 20 02/12/19 15:23 BP 99/64 L 02/12/19 15:23 Pulse Ox 98 02/12/19 15:23 Constitutional: WD/WN, vitals as above Eyes: PERRL, conjunctivae normal, anicteric sclerae EOM intact bilaterally Respiratory: normal respiratory effort Cardiovascular: Rate/Rhythm: regular rate and regular rhythm Gastrointestinal (Abdomen): normal bowel sounds, soft, nontender, no hepatosplenomegaly Musculoskeletal: Head/Neck/Chest: normocephalic and head atraumatic Neurologic: PERRL, EOMI, accommodation nl, no face palsy, no dysarthria CN's II-XI intact bilaterally Psychiatric: Orientation: alert and oriented x 3 (1) PNA (pneumonia) Pneumonia type: due to unspecified organism Laterality: bilateral Lung location: unspecified part of lung Qualified Code(s): J18.9 - Pneumonia, unspecified organism (2) HTN (hypertension) Hypertension type: essential hypertension Qualified Code(s): I10 - Essential (primary) hypertension
[2019-02-12 19:18] LABS: BUN Creatinine Ratio 13.7 (10-20); Calcium 7.9 mg/dl (8.5-10.1); Creatinine Clr Calc Pharmacy 65.4 ml/min; Est GFR (African American) 110.7; Est GFR (Non-African American) 95.5; Magnesium 1.7 mg/dl (1.8-2.4); Potassium 3.6 mmol/L (3.5-5.1)
[2019-02-12] MEDS: TRAZODONE HCL 100 MG TAB PO SCH (20:02)
[2019-02-12] MEDS: QUETIAPINE FUMARATE 200 MG TAB PO SCH (20:03)
[2019-02-13] MEDS: LEVALBUTEROL HCL 0.63 MG/3 ML NEB NEB SCH ×4 (01:23→18:52)
[2019-02-13] MEDS: IPRATROPIUM BROMIDE NEB SOLN 0.02% 2.5 ML VIAL INH SCH ×4 (01:23→18:52)
[2019-02-13] MEDS ORDERED: VANCOMYCIN TROUGH ONE (05:30)
[2019-02-13] MEDS: PIPERACILLIN/TAZOBACTAM 3.375 GM in DEXTROSE 5% 100 ML IV SCH (06:12)
[2019-02-13 07:51] LABS: Basophils # (auto) 0.02 K/uL (0-0.2); Basophils % (auto) 0.2 %; Eosinophils # (auto) 0.17 K/uL (0-0.5); Eosinophils % (auto) 1.9 %; Hematocrit (blood only) 31.4 % (42-52); Hemoglobin 10.5 g/dL (14.0-18.0); Immature Granulocytes # (auto) 0.01 K/uL (0.00-0.02); Immature Granulocytes % (auto) 0.1 %; Lymphocytes # (auto) 2.01 K/uL (1.2-3.4); Lymphocytes % (auto) 22.2 %; Mean Corpuscular Hgb Conc 33.4 g/dL (32-36); Mean Corpuscular Volume 81.6 fL (80-100); Mean Platelet Volume 8.9 fL (7.4-10.4); Monocytes # (auto) 0.61 K/uL (0.11-0.59); Monocytes % (auto) 6.7 %; Neutrophils # (auto) 6.22 K/uL (1.4-6.5); Neutrophils % (auto) 68.9 %; Platelet Count 373 K/uL (130-400); RDW Coefficient of Variation 16.2 % (11.5-14.5); RDW Standard Deviation 48.7 fL (36.4-46.3); Red Blood Count 3.85 M/uL (4.7-6.1); White Blood Count 9.04 K/uL (4.8-10.8)
[2019-02-13 08:17] LABS: Creatinine Clr Calc Pharmacy 84.3 ml/min; Est GFR (African American) 123.4; Est GFR (Non-African American) 106.5
[2019-02-13] MEDS: DIVALPROEX DELAY RELEASE 250 MG TABEC PO SCH ×2 (09:05→20:15)
[2019-02-13] MEDS: MAGNESIUM OXIDE 400 MG TAB PO SCH (09:05)
[2019-02-13] MEDS: BENZTROPINE MESYLATE 0.5 MG TAB PO SCH ×2 (09:05→20:14)
[2019-02-13] MEDS: PANTOprazole 40 MG TAB PO SCH (09:06)
[2019-02-13] MEDS: METOPROLOL TARTRATE 25 MG TAB PO SCH ×2 (09:06→20:17)
[2019-02-13] MEDS: risperiDONE 2 MG TABLET PO SCH ×2 (09:06→20:18)
[2019-02-13] MEDS: POTASSIUM CHLORIDE 10 MEQ TABCR PO SCH ×2 (09:06→20:15)
[2019-02-13] MEDS: LACTASE 3000 UNIT TAB PO SCH ×4 (09:06→20:16)
[2019-02-13] MEDS ORDERED: IOVERSOL 100ml IV PRN (09:24)
[2019-02-13] MEDS: MAGNESIUM SULFATE / D5W 1 GM/100 ML BAG IV SCH ×2 (09:30→11:06)
--- NOTE | 2019-02-13 09:53 | CT Scan Report ---
CT SCAN OF THE CHEST WITH IV CONTRAST CLINICAL HISTORY: Pulmonary nodule. Follow-up pneumonia. COMPARISON STUDY: Chest x-ray dated 02/11/2019. Abdominal CT dated 01/25/2019. TECHNIQUE: Following the IV administration of 94 cc of Optiray 320, CT scan of the thorax was perform ed from the thoracic inlet to the upper abdomen. Images are reviewed in the axial, sagittal, and scotty nal planes. IV contrast was administered without complication. A dose lowering technique was utilize d adhering to the principles of ALARA. CT DOSE: 209.53 mGy.cm FINDINGS: Thyroid: Imaged portions of the thyroid gland are normal in size and attenuation. Thoracic aorta: There is atherosclerotic calcification of the thoracic aorta. There is mild ectasia o f the ascending thoracic aorta which measures up to 3.5 cm in diameter. The remainder of the thoracic aorta is normal in caliber and the arch demonstrates standard 3-vessel anatomy. No dissection is see n. 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 Pulmonary vasculature: The pulmonary trunk is normal in caliber. There are no filling defects identif ied in the central pulmonary vessels to indicate pulmonary embolus. Note that this examination was no t protocoled for evaluation of the pulmonary arteries. Heart: The heart is normal in size and without pericardial effusion. The coronary arteries are densel y calcified. Lungs and pleural spaces: Evaluation of the lung parenchyma is modestly degraded by motion artifact. Moderate to advanced emphysematous change is noted. There is a trace left pleural effusion. There are patchy foci of nodular groundglass change in the right upper lobe (images #126 and #133), the right middle lobe, and the right lower lobe as well as in the left upper lobe (image #119). [place] are present the right apex. There is a spiculated appearing 9 mm nodule in the left lower lobe on image #137. A calcified granuloma is noted at the left apex. Scarring/atelectasis is noted in the lingula. Patchy bibasilar consolidation has largely resolved as compared to 01/25/2019. Mediastinum: There is no mediastinal lymphadenopathy. Edel: Clear. Axillae: There is no axillary lymphadenopathy. Upper abdomen: There is a large hiatal hernia, with approximately half of the stomach located in the thoracic cavity. Fecal retention is noted in the partially imaged colon. There are large perigastric collaterals. Skeletal structures: The skeletal structures are osteopenic. No lytic or blastic bony lesions are see n. Soft tissues: The patient is cachectic. IMPRESSION: 1. Cardiomegaly and emphysema. 2. Patchy bibasilar airspace consolidation has almost completely resolved as compared to 01/25/2019. 3. There is a 9 mm spiculated appearing nodule in the left lower lobe. This is pathologically indeter minant but concerning for neoplasm. A 2-3 month follow-up examination is recommended in follow-up. 4. Additional foci of patchy nodular groundglass change are seen throughout the right lung and in the left upper lobe. This is likely on an infectious/inflammatory basis, and this should also be reasses sed at follow-up. 5. 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 6. There is mild ectasia of the ascending thoracic aorta which measures up to 3.5 cm. 7. Large hiatal hernia. Electronically signed by: Kofi Fitzpatrick M.D. 02/13/2019 9:52 AM
[2019-02-13] MEDS ORDERED: AZITHROMYCIN 500 MG in DEXTROSE 5% 250 ML IV ONE (12:45)
[2019-02-13] MEDS: cefTRIAXone SODIUM 1,000 MG in DEXTROSE 5% 50 ML IV SCH (12:47)
--- NOTE | 2019-02-13 16:04 | Oncology Consultation ---
Date of Consultation February 13, 2019 Assessment & Plan (1) Esophageal cancer: 73-year-old male, Oncology diagnosis: - 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 - No evidence of distant metastatic noted at that time the diagnosis in November 2018. - Long-standing history of smoking present. - He was scheduled for endoscopic treatment for the lower esophageal carcinoma but then he was admitted in the hospital with upper GI bleed, had received blood transfusion, - Recent CT scan of chest shows some 9 mm right lower lobe nodule which could be primary lung cancer or metastatic disease but it is too small to characterize, earlier PET/CT scan did not show any metabolic active lung lesions. Now he schedule for similar procedure in early march 2019 at [facility] (03/12/2019). He is admitted for aspiration pneumonia, recovering well, some weight loss noted. No dysphagia. I reviewed with him regarding the recent imaging studies and blood workup findings, I think he should continue to have follow-up with GI at [facility] for local treatment for lower esophageal cancer. Regarding lung nodule, I would consider for having follow-up CT scan of chest in about 2 to 3 months. Will follow-up in the office in about 1 month. Thanks for the consultation. Tyler Ribera MD Hem/Onc History of Present Illness Attending Physician: Marlo Grider MD 73-year-old male, Oncology diagnosis: - Lower esophageal adenocarcinoma appears to be involving the submucosa, no local regional lymphadenopathy noted in the PET/CT scan done in November 2018. - No evidence of distant metastatic noted at that time the diagnosis in November 2018. - Long-standing history of smoking present. He has several comorbid conditions like schizophrenia, COPD, smokes about one half pack per day, hypertension, Kevin's esophagus for the last 3 years, recently he was admitted at [facility] for upper GI bleed, received blood transfusion, he was then transferred at [facility]. He supposed to go for endoscopic treatment for lower esophageal carcinoma but because of her GI bleed he could not have that procedure. Now he's admitted hospital for aspiration pneumonia, I saw him at bedside, he is getting ceftriaxone and azithromycin with improvement of his pulmonary symptoms, he is not on any oxygen treatment, he lives in the alf, ambulates with the help of the walker over there, no fever at this time, no increasing shortness of breath, cough present, continues to smoke one half pack per day, denies any abdominal pain, no nausea or vomiting at this time, no diarrhea or constipation, no blood in the stool, no increasing leg edema, no focal nodular symptoms, some weight loss noted. Allergies Allergy/AdvReac Type Severity Reaction Status Date / Time buspirone Allergy Unknown Verified 02/11/19 12:45 clonazepam Allergy Unknown unknown Verified 02/11/19 12:45 clozapine Allergy Unknown Verified 02/11/19 12:45 Home Medications Home Medications Medication Instructions Recorded Confirmed Type Dairy Relief 9,000 unit PO QID 09/09/18 02/11/19 History acetaminophen [Acetaminophen Extra 1,000 mg PO Q8H PRN 09/09/18 02/11/19 History Strength] albuterol sulfate [Ventolin HFA] 2 puff INHALATION QID PRN 09/09/18 02/11/19 History calcium carbonate [Calcium Antacid] 200 - 400 mg PO DAILY 09/09/18 02/11/19 History guaifenesin [Mucinex] 600 mg PO BID PRN 09/09/18 02/11/19 History metoprolol succinate 25 mg PO QAM 09/09/18 02/11/19 History omeprazole 40 mg PO QAM 09/09/18 02/11/19 History quetiapine 400 mg PO QPM 09/09/18 02/11/19 History ranitidine HCl 150 mg PO BID 09/09/18 02/11/19 History trazodone 100 mg PO HS 09/09/18 02/11/19 History Preparation H 1 applic GA TID PRN 10/16/18 02/11/19 History ipratropium bromide 0.5 mg NEB Q6R PRN #75 ml 10/19/18 02/11/19 Rx potassium chloride 10 meq PO BID 10/28/18 02/11/19 History Reguloid 1 tsp PO DAILY PRN 01/06/19 02/11/19 History alum-mag hydroxide-simeth [Rulox] 10 ml PO Q4H PRN 01/06/19 02/11/19 History diphenhydramine HCl [Banophen] 25 mg PO HS PRN 01/06/19 02/11/19 History polyethylene glycol 3350 [Miralax] 17 gm PO DAILY PRN 01/22/19 02/11/19 History benztropine 0.5 mg PO BID 02/11/19 02/11/19 History divalproex 250 mg PO BID 02/11/19 02/11/19 History risperidone 2 mg PO BID 02/11/19 02/11/19 History Patient History Medical History Esophageal cancer (Acute) History of esophageal cancer (Chronic) 11/20/18 EGD: Nodular ulcerated lesion. EUS: Mass lower third esophagus. Biopsies positive for adenocarcinoma. Paranoid schizophrenia (Chronic) COPD (chronic obstructive pulmonary disease) (Chronic) HTN (hypertension) (Chronic) GERD (gastroesophageal reflux disease) (Chronic) Tobacco abuse (Chronic) Kevin esophagus (Chronic) GI bleed Sepsis Surgical History History of esophagogastroduodenoscopy (EGD) (Chronic) History of skin graft (Chronic) as child History of bowel resection (Chronic) "for diverticulitis " in 2009 Family History Mother Stroke Thyroid disorder Father Heart attack Other Heart disease Social History Communication Ability: Effective Beliefs That Will Affect Care: Sabianist Current Living Situation: Personal Care Facility Current Living Situation Comment: [facility] Feels Safe at Home: Yes Safety Concerns: Feels Safe At This Time Smoking Status: Former smoker Hx Alcohol Use: No Hx Substance Use: No Review of Systems GENERAL: weight loss about 8 to 10 lb noted, feeling slightly weak and tired, no fever or chills.. SKIN: No skin rash, no bruising. HEAD: No increasing/new headache, no dizziness. EYES: No recent change in the vision, no diplopia, EARS: No earache ,no tinnitus, NOSE: No epistaxis, No nasal discharge or stuffiness, MOUTH: No sores, no dysphagia, no hoarseness of voice, NECK: No lumps, No swelling in thyroid area. No stiffness. PULMONARY: cough present, shortness of breath present but it has improved, he is not on any oxygen treatment,, no hemoptysis, no chest pain, he had increasing which has improved. CARDIOVASCULAR: No anginal chest pain, no PND, no orthopnea. No palpitation, no leg edema. No syncope. GASTRIINTESTINAL: No abdominal pain, no nausea or vomiting. No diarrhea, No constipation. No blood in stool or black tarry stools. No abdominal distention. UROLOGIC: No burning urination. No hematuria. MUSCULOSKELETAL: No joint pain, No joint swelling, no muscle weakness. HEMATOLOGIC: he had upper GI bleed recently last month, received blood transfusion,, no bleeding disorder, No bruising. NEUROLOGIC: No seizures, no focal weakness, no speech difficulty, No memory disturbances. No tingling or numbness of the extremities. PSYCHRIATRIC: No depression. No anxiety. No psychosis. Physical Exam Vital Signs (Past 24 Hours): Last Vital Signs Temp 36.6 C 02/13/19 14:52 Pulse 75 02/13/19 14:52 Resp 20 02/13/19 14:52 BP 115/72 02/13/19 14:52 Pulse Ox 97 02/13/19 14:52 On exam: - Alert and oriented x3, thin built man, not in any distress. - HEENT: no icterus, mild pallor noted, Throat: Normal. - Neck: No palpable cervical lymphadenopathy. - Chest: emphysematous chest noted.. - Abdomen: soft, nontender, no hepatomegaly, no splenomegaly. - No focal neuro deficit. - Extremities: finger clubbing noted, no leg edema. Results & Data Laboratory Results Blood workup done on during this hospitalization: - WBC 9000, H&H of 10.5/31.4, Platelet count of 373,000, MCV 81.6 - Normal PT and PTT. - BUN/creatinine: 9/0.6 - Calcium 7.9, magnesium 1.7 - Lactate 1.0 - Procalcitonin > 6.7 which is on the higher side. - Normal liver function test. Total bilirubin: 0.4. Albumin 3.1. Endoscopy: Upper GI endoscopy (11/20/2018) - Nodular ulcerated lesion noted in the lower esophagus. - Biopsy from that nodular lesion > Invasive adenocarcinoma, well to moderately differentiated in the background of intestinal metaplasia, Her2/Ronaldo--> negative. Upper GI endoscopic ultrasound (11/20/2018) - Lower one third dysphagia mass measuring about 8 mm noted. Invasion of the submucosa noted. Diagnostic Findings PET-CT scan (12/10/2018) - Law up metabolic activity noted in the mucosa of the lower esophagus as well as in the upper esophagus. - No metabolically active nephropathy noted. - Low level of metabolic activity noted in the groundglass opacities noted in the bilateral lungs appears to be inflammatory/infectious in nature. CT scan of the abdomen and pelvis (01/06/2019) - Moderate hiatal hernia noted. Airspace changes noted in the right middle lobe suspicious for pneumonia. - Gallstone noted. - No intra-abdominal lymphedenopathy noted. CT scan of the abdomen and pelvis (01/25/2019) - No suspicious findings, hiatal hernia noted. No enlarged lymph nodes noted. CT scan of the chest (02/13/2019) - Previously noted bibasilar airspace consolidation completely resolved. - 9 mm spiculated nodule in the left lower lobe. - Patchy nodular groundglass opacities noted throughout the right lung and the left upper lobe likely infectious/inflammatory nature. 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
[2019-02-13] MEDS: QUETIAPINE FUMARATE 200 MG TAB PO SCH (16:59)
--- NOTE | 2019-02-13 17:46 | Pulmonary Consultation ---
Date of Consultation February 13, 2019 Assessment & Plan (1) HCAP (healthcare-associated pneumonia): possible pneumonia. will his symptoms and CT findings pneumonia is not definate. He has minimal respiratory symptoms. CT has some patchy infiltrates and with his history I would err on the side of treating this and complete 5 days of abx COPD without acute exacerbation. albuterol/ipratropioum pulmonary nodule does not appear concerning but with his history of malignancy and smoking needs repeat CT in 3 months Smoking - discussed smoking cessation. He wants to try patches and nicotine gum on discharge History of Present Illness Attending Physician: Marlo Grider MD History of Present Illness 73 y/o male with a history of esophageal CA, COPD, HTN, GERD who presents complaining of difficulty walking(shuffling) and cough. He says he knows that something is wrong when he has trouble walking. He was found to be hypotesive which responded to fluids. today he says that his walking is better. He says the cough is dry and he has no trouble breathing. denies fevers or chills. is currently smoking. He has no other complaints Allergies Allergy/AdvReac Type Severity Reaction Status Date / Time buspirone Allergy Unknown Verified 02/11/19 12:45 clonazepam Allergy Unknown unknown Verified 02/11/19 12:45 clozapine Allergy Unknown Verified 02/11/19 12:45 Home Medications Home Medications Medication Instructions Recorded Confirmed Type Dairy Relief 9,000 unit PO QID 09/09/18 02/11/19 History acetaminophen [Acetaminophen Extra 1,000 mg PO Q8H PRN 09/09/18 02/11/19 History Strength] albuterol sulfate [Ventolin HFA] 2 puff INHALATION QID PRN 09/09/18 02/11/19 History calcium carbonate [Calcium Antacid] 200 - 400 mg PO DAILY 09/09/18 02/11/19 History guaifenesin [Mucinex] 600 mg PO BID PRN 09/09/18 02/11/19 History metoprolol succinate 25 mg PO QAM 09/09/18 02/11/19 History omeprazole 40 mg PO QAM 09/09/18 02/11/19 History quetiapine 400 mg PO QPM 09/09/18 02/11/19 History ranitidine HCl 150 mg PO BID 09/09/18 02/11/19 History trazodone 100 mg PO HS 09/09/18 02/11/19 History Preparation H 1 applic NV TID PRN 10/16/18 02/11/19 History ipratropium bromide 0.5 mg NEB Q6R PRN #75 ml 10/19/18 02/11/19 Rx potassium chloride 10 meq PO BID 10/28/18 02/11/19 History Reguloid 1 tsp PO DAILY PRN 01/06/19 02/11/19 History alum-mag hydroxide-simeth [Rulox] 10 ml PO Q4H PRN 01/06/19 02/11/19 History diphenhydramine HCl [Banophen] 25 mg PO HS PRN 01/06/19 02/11/19 History polyethylene glycol 3350 [Miralax] 17 gm PO DAILY PRN 01/22/19 02/11/19 History benztropine 0.5 mg PO BID 02/11/19 02/11/19 History divalproex 250 mg PO BID 02/11/19 02/11/19 History risperidone 2 mg PO BID 02/11/19 02/11/19 History Patient History Medical History Esophageal cancer (Acute) History of esophageal cancer (Chronic) 11/20/18 EGD: Nodular ulcerated lesion. EUS: Mass lower third esophagus. Biopsies positive for adenocarcinoma. Paranoid schizophrenia (Chronic) COPD (chronic obstructive pulmonary disease) (Chronic) HTN (hypertension) (Chronic) GERD (gastroesophageal reflux disease) (Chronic) Tobacco abuse (Chronic) Kevin esophagus (Chronic) GI bleed Sepsis Surgical History History of esophagogastroduodenoscopy (EGD) (Chronic) History of skin graft (Chronic) as child History of bowel resection (Chronic) "for diverticulitis " in 2009 Family History Mother Stroke Thyroid disorder Father Heart attack Other Heart disease Social History Communication Ability: Effective Beliefs That Will Affect Care: Protestant Current Living Situation: Personal Care Facility Current Living Situation Comment: [facility] Feels Safe at Home: Yes Safety Concerns: Feels Safe At This Time Smoking Status: Former smoker Hx Alcohol Use: No Hx Substance Use: No Review of Systems Constitutional: no fevers no chills no weight loss Eyes: no blurry or double vision EENT: no sore throat, no congestion Respiratory: + cough no shortness of breath Cardiovascular: no chest pain no palpitations GI: no abdominal pain, no nausea, no vomiting, no diarrhea, + constipation Gu: no dysuria, no frequency MSK: no joint pain, no muscle aches Skin: no rash Neuro: no headache, no dizziness, no focal weakness Endocrine: no heat or cold intolerance heme: no easy bruising, no lymphadenopathy Psych: no depression, + anxiety Physical Exam Vital Signs (Past 24 Hours): Last Vital Signs Temp 36.6 C 02/13/19 14:52 Pulse 75 02/13/19 14:52 Resp 20 02/13/19 14:52 BP 115/72 02/13/19 14:52 Pulse Ox 97 02/13/19 14:52 Physical Exam: Constitutional: Comfortable NAD. cachectic HEENT: normocephalic atraumatic. MMM. no cervical lymphadenopathy CV: RRR nl s1,s2 no murmurs rubs or gallops Lungs: clear to auscultation bilaterally. no accessory muscle use Abd: soft nontender nondistended. normal bowel sounds Ext: no edema. no cyanosis, no clubbing Skin: warm dry Neuro: alert and oriented. moving all extremities Psych: anxioust Results & Data Laboratory Results Laboratory Results - last 24 hr 02/12/19 02/13/19 02/13/19 18:47 07:37 07:37 WBC 9.04 RBC 3.85 L Hgb 10.5 L Hct 31.4 L MCV 81.6 MCH 27.3 MCHC 33.4 RDW Std Deviation 48.7 H RDW Coeff of Migel 16.2 H Plt Count 373 MPV 8.9 Immature Gran % (Auto) 0.1 Neut % (Auto) 68.9 Lymph % (Auto) 22.2 Knox % (Auto) 6.7 Eos % (Auto) 1.9 Baso % (Auto) 0.2 Immature Gran # (Auto) 0.01 Neut # (Auto) 6.22 Lymph # (Auto) 2.01 Knox # (Auto) 0.61 H Eos # (Auto) 0.17 Baso # (Auto) 0.02 Sodium 135 L Potassium 3.6 Chloride 105 Carbon Dioxide 23 Anion Gap 7.0 BUN 9 Creatinine 0.69 0.53 L Est Cr Clr Drug Dosing 65.4 84.3 Est GFR ( Amer) 110.7 123.4 Est GFR (Non-Af Amer) 95.5 106.5 BUN/Creatinine Ratio 13.7 Glucose 154 H Calcium 7.9 L Magnesium 1.[address] SCAN OF THE CHEST WITH IV CONTRAST CLINICAL HISTORY: Pulmonary nodule. Follow-up pneumonia. COMPARISON STUDY: Chest x-ray dated 02/11/2019. Abdominal CT dated 01/25/2019. TECHNIQUE: Following the IV administration of 94 cc of Optiray 320, CT scan of the thorax was performed from the thoracic inlet to the upper abdomen. Images are reviewed in the axial, sagittal, and coronal planes. IV contrast was admi nistered without complication. A dose lowering technique was utilized adhering to the principles of ALARA. CT DOSE: 209.53 mGy.cm FINDINGS: Thyroid: Imaged portions of the thyroid gland are normal in size and attenuation. Thoracic aorta: There is atherosclerotic calcification of the thoracic aorta. There is mild ectasia of the ascending thoracic aorta which measures up to 3.5 cm in diameter. The remainder of the thoracic aorta is normal in caliber and the arch demonstrates standard 3-vessel anatomy. No dissection is seen. 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 Pulmonary vasculature: The pulmonary trunk is normal in caliber. There are no filling defects identified in the central pulmonary vessels to indicate pulmonary embolus. Note that this examination was not protocoled for evaluation of the pulmonary arteries. Heart: The heart is normal in size and without pericardial effusion. The coronary arteries are densely calcified. Lungs and pleural spaces: Evaluation of the lung parenchyma is modestly degraded by motion artifact. Moderate to advanced emphysematous change is noted. There is a trace left pleural effusion. There are patchy foci of nodular groundglass change in the right upper lobe (images #126 and #133), the right middle lobe, and the right lower lobe as well as in the left upper lobe (image #119). Tree-in-bud opacities are present the right apex. There is a spiculated appearing 9 mm nodule in the left lower lobe on image #137. A calcified granuloma is noted at the left apex. Scarring/atelectasis is noted in the lingula. Patchy bibasilar consolidation has largely resolved as compared to 01/25/2019. Mediastinum: There is no mediastinal lymphadenopathy. Edel: Clear. Axillae: There is no axillary lymphadenopathy. Upper abdomen: There is a large hiatal hernia, with approximately half of the stomach located in the thoracic cavity. Fecal retention is noted in the partially imaged colon. There are large perigastric collaterals. Skeletal structures: The skeletal structures are osteopenic. No lytic or blastic bony lesions are seen. Soft tissues: The patient is cachectic. IMPRESSION: 1. Cardiomegaly and emphysema. 2. Patchy bibasilar airspace consolidation has almost completely resolved as compared to 01/25/2019. 3. There is a 9 mm spiculated appearing nodule in the left lower lobe. This is pathologically indeterminant but concerning for neoplasm. A 2-3 month follow-up examination is recommended in follow-up. 4. Additional foci of patchy nodular groundglass change are seen throughout the right lung and in the left upper lobe. This is likely on an infectious/inflammatory basis, and this should also be reassessed at follow-up. 5. 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 6. There is mild ectasia of the ascending thoracic aorta which measures up to 3.5 cm. 7. Large hiatal hernia. Electronically signed by: Kofi Fitzpatrick M.D. 02/13/2019 9:52 AM
--- NOTE | 2019-02-13 17:53 | Hospitalist Progress Note ---
Date of Service February 13, 2019 Assessment & Plan (1) Sepsis: (2) PNA (pneumonia): This is a 73-year-old white male with significant past medical history of paranoid schizophrenia, COPD, hypertension, Kevin's esophagus, recently diagnosed adenocarcinoma of the esophagus on 11/2017, recent upper GI bleed who presents to [facility] ED secondary to difficulty walking, tachycardia, cough and low blood pressure times 1 day. Pneumonia right lower lobe pneumonia and other patchy infiltrates seen later on Chest CT on bilateral lung gomez Patient met SIRS/sepsis criteria on admission; On admission patient hypotensive with SBP < 100, tachycardic, lactate normal, Received IVF per protocol, 2L while in ED Blood cultures 02/11/19 were drawn and received Broad spectrum IV antibiotics with cefepime and vancomycin in the ED Hypotension/tachycardia in setting of infection; tachycardia improved after being resumed on metoprolol and blood pressure is more stable now -Source: -procalcitonin positive -has been on Zosyn currently as MRSA screen negative -reviewed with patient the Chest CT findings on 02/13/19 and Have de-escalated the IV antibiotics from Zosyn to IV Ceftriaxone and Azithromycin and transferred from telemetry to medical mabry as heart rate is adequately controlled. As per pulmonary physician CT has some patchy infiltrates patient should complete at least 5 days of antibiotics There is a 9 mm spiculated appearing nodule in the left lower lobe. This is pathologically indeterminant but concerning for neoplasm. A 2-3 month follow-up examination is recommended in follow-up. CT chest impressions from 02/13/19 1. Cardiomegaly and emphysema. 2. Patchy bibasilar airspace consolidation has almost completely resolved as compared to 01/25/2019. 3. There is a 9 mm spiculated appearing nodule in the left lower lobe. This is pathologically indeterminant but concerning for neoplasm. A 2-3 month follow-up examination is recommended in follow-up. 4. Additional foci of patchy nodular groundglass change are seen throughout the right lung and in the left upper lobe. This is likely on an infectious/inflammatory basis, and this should also be reassessed at follow-up. 5. 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 6. There is mild ectasia of the ascending thoracic aorta which measures up to 3.5 cm. 7. Large hiatal hernia. 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 (3) Hypomagnesemia: admission serum magnesium 1.3 and IV supplementation was given with IV fluids serum magnesium corrected as 2 as of 02/12/19 but then it was 1.7 on repeat labs additional magnesium supplements given on 02/13/19 (4) Hyponatremia: -Chronic hypnatremia with serum 129 on admission, in setting of polydipsia -serum sodium has corrected with IV fluids with serum sodium of 136 in AM of 02/12/19 -serum sodium stable as 135 on repeat on 02/12/19 (5) COPD (chronic obstructive pulmonary disease): -no acute exacerbation -continue aggressive pulm toilet due to PNA (6) Esophageal cancer: Oncology diagnosis: - 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 - No evidence of distant metastatic noted at that time the diagnosis in November 2018. - Long-standing history of smoking present. - He was scheduled for endoscopic treatment for the lower esophageal carcinoma but then he was admitted in the hospital with upper GI bleed, had received blood transfusion, - Recent CT scan of chest shows some 9 mm right lower lobe nodule which could be primary lung cancer or metastatic disease but it is too small to characterize, earlier PET/CT scan did not show any metabolic active lung lesions. Now he schedule for similar procedure in early march 2019 at [facility] (03/12/2019). -continue slippery minced moist diet and aspiration precautions as per speech and swallow services (7) Anemia: History of recent Upper GI bleed in previous hospital stays in setting of current esophageal Cancer -CBC is stable (8) HTN (hypertension): continue metoprolol tartrate as 12.5 mg BID (9) Paranoid schizophrenia: -continue depakote, risperdal, seroquel, trazodone, cogentin -follows with psych as outpatient (10) Kevin esophagus: -continue PPI and ranitidine (11) GERD (gastroesophageal reflux disease): -continue PPI and ranitidine (12) Tobacco abuse: -encourage tobacco cessation -Nicotine patch (13) DVT prophylaxis: -SCDS, avoid chemical prophylaxis for now given recent history of Upper GI Bleed Subjective Patient breathing on room air. no respiratory distress. reviewed with patient the Chest CT findings. Have de-escalated the IV antibiotics from Zosyn to IV Ceftriaxone and Azithromycin and transferred from telemetry to medical mabry as heart rate is adequately controlled. Patient denies chest pain or abdominal pain. denies problems with eating. Physical Exam Vital Signs (Past 24 Hours): Last Vital Signs Temp 36.6 C 02/13/19 14:52 Pulse 75 02/13/19 14:52 Resp 20 02/13/19 14:52 BP 115/72 02/13/19 14:52 Pulse Ox 97 02/13/19 14:52 Constitutional: WD/WN, vitals as above Eyes: PERRL, conjunctivae normal, anicteric sclerae EOM intact bilaterally ENMT: external ear and nose normal, oropharynx normal Respiratory: normal respiratory effort Cardiovascular: Rate/Rhythm: regular rate and regular rhythm Gastrointestinal (Abdomen): normal bowel sounds, soft, nontender, no hepatosplenomegaly Musculoskeletal: Head/Neck/Chest: normocephalic and head atraumatic Neurologic: PERRL, EOMI, accommodation nl, no face palsy, no dysarthria CN's II-XI intact bilaterally Psychiatric: Orientation: alert and oriented x 3 (1) HTN (hypertension) Hypertension type: essential hypertension Qualified Code(s): I10 - Essential (primary) hypertension (2) PNA (pneumonia) Laterality: bilateral Lung location: unspecified part of lung Pneumonia type: due to unspecified organism Qualified Code(s): J18.9 - Pneumonia, unspecified organism
[2019-02-13] MEDS: NICOTINE 7 MG/24 HR TDSY TD SCH (19:31)
[2019-02-13] MEDS: TRAZODONE HCL 100 MG TAB PO SCH (20:15)
[2019-02-13] MEDS: ACETAMINOPHEN 325 MG TAB PO PRN (21:37)
[2019-02-14] MEDS: IPRATROPIUM BROMIDE NEB SOLN 0.02% 2.5 ML VIAL INH SCH ×2 (01:17→07:09)
[2019-02-14] MEDS: LEVALBUTEROL HCL 0.63 MG/3 ML NEB NEB SCH ×2 (01:17→07:09)
[2019-02-14 06:10] LABS: Basophils # (auto) 0.02 K/uL (0-0.2); Basophils % (auto) 0.2 %; Eosinophils # (auto) 0.18 K/uL (0-0.5); Eosinophils % (auto) 2.2 %; Hematocrit (blood only) 29.9 % (42-52); Immature Granulocytes # (auto) 0.01 K/uL (0.00-0.02); Immature Granulocytes % (auto) 0.1 %; Lymphocytes # (auto) 2.18 K/uL (1.2-3.4); Lymphocytes % (auto) 27.1 %; Mean Corpuscular Hgb Conc 33.4 g/dL (32-36); Mean Corpuscular Volume 80.6 fL (80-100); Mean Platelet Volume 9.8 fL (7.4-10.4); Monocytes # (auto) 0.71 K/uL (0.11-0.59); Monocytes % (auto) 8.8 %; Neutrophils # (auto) 4.94 K/uL (1.4-6.5); Neutrophils % (auto) 61.6 %; Platelet Count 415 K/uL (130-400); RDW Standard Deviation 47.5 fL (36.4-46.3); Red Blood Count 3.71 M/uL (4.7-6.1); White Blood Count 8.04 K/uL (4.8-10.8)
[2019-02-14 06:37] LABS: BUN Creatinine Ratio 20.6 (10-20); Calcium 8.6 mg/dl (8.5-10.1); Creatinine Clr Calc Pharmacy 70.9 ml/min; Est GFR (African American) 114.9; Est GFR (Non-African American) 99.1; Potassium 4.6 mmol/L (3.5-5.1)
[2019-02-14] MEDS ORDERED: AZITHROMYCIN 250 MG in DEXTROSE 5% 250 ML IV SCH (09:00)
[2019-02-14] MEDS: cefTRIAXone SODIUM 1,000 MG in DEXTROSE 5% 50 ML IV SCH (09:38)
[2019-02-14] MEDS: MAGNESIUM OXIDE 400 MG TAB PO SCH (09:38)
[2019-02-14] MEDS: PANTOprazole 40 MG TAB PO SCH (09:38)
[2019-02-14] MEDS: risperiDONE 2 MG TABLET PO SCH ×2 (09:39→20:03)
[2019-02-14] MEDS: METOPROLOL TARTRATE 25 MG TAB PO SCH ×2 (09:39→20:08)
[2019-02-14] MEDS: DIVALPROEX DELAY RELEASE 250 MG TABEC PO SCH ×2 (09:39→20:06)
[2019-02-14] MEDS: LACTASE 3000 UNIT TAB PO SCH ×4 (09:39→20:04)
[2019-02-14] MEDS: BENZTROPINE MESYLATE 0.5 MG TAB PO SCH ×2 (09:40→20:06)
[2019-02-14] MEDS: NICOTINE 7 MG/24 HR TDSY TD SCH (09:42)
[2019-02-14] MEDS: SODIUM CHLORIDE 1 GM TABLET PO SCH ×2 (09:47→20:03)
[2019-02-14] MEDS ORDERED: IPRATROPIUM BROMIDE NEB SOLN 0.02% 2.5 ML VIAL INH PRN (09:53)
[2019-02-14] MEDS ORDERED: LEVALBUTEROL HCL 0.63 MG/3 ML NEB NEB PRN (09:53)
--- NOTE | 2019-02-14 09:55 | Pulmonology Progress Note ---
Date of Service February 14, 2019 Assessment & Plan (1) HCAP (healthcare-associated pneumonia): possible pneumonia. will his symptoms and CT findings pneumonia is not definite. He has minimal respiratory symptoms. CT has some patchy infiltrates and with his history I would err on the side of treating this and complete 5 days of abx COPD without acute exacerbation. albuterol/ipratropioum pulmonary nodule does not appear concerning but with his history of malignancy and smoking needs repeat CT in 3 months Smoking - discussed smoking cessation. He wants to try patches and nicotine gum on discharge Physical Exam Vital Signs (Past 24 Hours): Last Vital Signs Temp 36.5 C 02/14/19 07:57 Pulse 82 02/14/19 07:57 Resp 14 02/14/19 07:57 BP 128/72 02/14/19 07:57 Pulse Ox 95 02/14/19 07:57 Physical Exam: Constitutional: Comfortable NAD. cachectic HEENT: normocephalic atraumatic. MMM. CV: RRR nl s1,s2 no murmurs rubs or gallops Lungs: clear to auscultation bilaterally. no accessory muscle use Abd: soft nontender nondistended. normal bowel sounds Ext: no edema. no cyanosis, no clubbing Skin: warm dry Neuro: alert and oriented. moving all extremities Psych: anxious
--- NOTE | 2019-02-14 12:24 | Hospitalist Progress Note ---
Date of Service February 14, 2019 Assessment & Plan (1) Sepsis: (2) PNA (pneumonia): This is a 73-year-old white male with significant past medical history of paranoid schizophrenia, COPD, hypertension, Kevin's esophagus, recently diagnosed adenocarcinoma of the esophagus on 11/2017, recent upper GI bleed who presents to [facility] ED secondary to difficulty walking, tachycardia, cough and low blood pressure times 1 day. Pneumonia right lower lobe pneumonia and other patchy infiltrates seen later on Chest CT on bilateral lung gomez Patient met SIRS/sepsis criteria on admission; On admission patient hypotensive with SBP < 100, tachycardic, lactate normal, Received IVF per protocol, 2L while in ED Blood cultures 02/11/19 were drawn and received Broad spectrum IV antibiotics with cefepime and vancomycin in the ED Hypotension/tachycardia in setting of infection; tachycardia improved after being resumed on metoprolol and blood pressure is more stable now -Source: -procalcitonin positive -has been on Zosyn currently as MRSA screen negative -reviewed with patient the Chest CT findings on 02/13/19 and Have de-escalated the IV antibiotics from Zosyn to IV Ceftriaxone and Azithromycin and transferred from telemetry to medical mabry as heart rate is adequately controlled. -As per pulmonary physician CT has some patchy infiltrates patient should complete at least 5 days of antibiotics -on 02/14/19 will transition from IV ceftriaxone and IV azithromycin to oral Augmentin at night and then completely to oral Augmentin and oral azithromycin starting on 02/15/19 as long as patient tolerates -There is a 9 mm spiculated appearing nodule in the left lower lobe. This is pathologically indeterminant but concerning for neoplasm. A 2-3 month follow-up examination is recommended in follow-up. CT chest impressions from 02/13/19 1. Cardiomegaly and emphysema. 2. Patchy bibasilar airspace consolidation has almost completely resolved as compared to 01/25/2019. 3. There is a 9 mm spiculated appearing nodule in the left lower lobe. This is pathologically indeterminant but concerning for neoplasm. A 2-3 month follow-up examination is recommended in follow-up. 4. Additional foci of patchy nodular groundglass change are seen throughout the right lung and in the left upper lobe. This is likely on an infectious/inflammatory basis, and this should also be reassessed at follow-up. 5. 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 6. There is mild ectasia of the ascending thoracic aorta which measures up to 3.5 cm. 7. Large hiatal hernia. 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 (3) Hypomagnesemia: admission serum magnesium 1.3 and IV supplementation was given with IV fluids serum magnesium corrected as 2 as of 02/12/19 but then it was 1.7 on repeat labs additional magnesium supplements given on 02/13/19 (4) Hyponatremia: -Chronic hyponatremia with serum 129 on admission, in setting of polydipsia -serum sodium has corrected with IV fluids with serum sodium of 136 in AM of 02/12/19 -serum sodium stable as 135 on repeat on 02/12/19 -serum sodium 132 on 02/14/19, start patient on sodium tablets (5) COPD (chronic obstructive pulmonary disease): -no acute exacerbation -continue aggressive pulm toilet due to PNA (6) Esophageal cancer: Oncology diagnosis: - 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 - No evidence of distant metastatic noted at that time the diagnosis in November 2018. - Long-standing history of smoking present. - He was scheduled for endoscopic treatment for the lower esophageal carcinoma but then he was admitted in the hospital with upper GI bleed, had received blood transfusion, - Recent CT scan of chest shows some 9 mm right lower lobe nodule which could be primary lung cancer or metastatic disease but it is too small to characterize, earlier PET/CT scan did not show any metabolic active lung lesions. Now he schedule for similar procedure in early march 2019 at [facility] (03/12/2019). -continue slippery minced moist diet and aspiration precautions as per speech and swallow services Cachexia -Boost supplements with meals (7) Anemia: History of recent Upper GI bleed in previous hospital stays in setting of current esophageal Cancer -CBC is stable (8) HTN (hypertension): continue metoprolol tartrate as 12.5 mg BID (9) Paranoid schizophrenia: -continue depakote, risperdal, seroquel, trazodone, cogentin -follows with psych as outpatient (10) Kevin esophagus: -continue PPI and ranitidine (11) GERD (gastroesophageal reflux disease): -continue PPI and ranitidine (12) Tobacco abuse: -encourage tobacco cessation -Nicotine patch (13) DVT prophylaxis: -SCDS, avoid chemical prophylaxis for now given recent history of Upper GI Bleed Disposition: plan on return to [facility] on 02/15/19 if patient able to tolerate oral antibiotics and remains clinically stable Subjective Patient breathing on room air. no respiratory distress. Patient denies chest pain or abdominal pain. denies problems with eating or taking pills Physical Exam Vital Signs (Past 24 Hours): Last Vital Signs Temp 36.5 C 02/14/19 07:57 Pulse 82 02/14/19 07:57 Resp 14 02/14/19 07:57 BP 128/72 02/14/19 07:57 Pulse Ox 95 02/14/19 07:57 Constitutional: WD/WN, vitals as above Eyes: PERRL, conjunctivae normal, anicteric sclerae EOM intact bilaterally ENMT: external ear and nose normal, oropharynx normal Respiratory: normal respiratory effort Cardiovascular: Rate/Rhythm: regular rate and regular rhythm Gastrointestinal (Abdomen): normal bowel sounds, soft, nontender, no hepatosplenomegaly Musculoskeletal: Head/Neck/Chest: normocephalic and head atraumatic Neurologic: PERRL, EOMI, accommodation nl, no face palsy, no dysarthria CN's II-XI intact bilaterally Psychiatric: Orientation: alert and oriented x 3 (1) PNA (pneumonia) Pneumonia type: due to unspecified organism Laterality: bilateral Lung location: unspecified part of lung Qualified Code(s): J18.9 - Pneumonia, unspe cified organism (2) HTN (hypertension) Hypertension type: essential hypertension Qualified Code(s): I10 - Essential (primary) hypertension
[2019-02-14] MEDS: QUETIAPINE FUMARATE 200 MG TAB PO SCH (17:23)
[2019-02-14] MEDS: TRAZODONE HCL 100 MG TAB PO SCH (20:05)
[2019-02-14] MEDS: AMOXICILLIN/CLAVULANATE 875 MG TAB PO SCH (20:05)
[2019-02-14] MEDS ORDERED: AMOXICILLIN/CLAVULANATE 875 MG TAB PO SCH (21:00)
[2019-02-15 07:29] LABS: Basophils # (auto) 0.01 K/uL (0-0.2); Basophils % (auto) 0.1 %; Eosinophils # (auto) 0.19 K/uL (0-0.5); Eosinophils % (auto) 2.1 %; Immature Granulocytes # (auto) 0.02 K/uL (0.00-0.02); Immature Granulocytes % (auto) 0.2 %; Lymphocytes # (auto) 2.14 K/uL (1.2-3.4); Lymphocytes % (auto) 23.8 %; Mean Corpuscular Hgb Conc 34.5 g/dL (32-36); Mean Corpuscular Volume 80.8 fL (80-100); Mean Platelet Volume 8.6 fL (7.4-10.4); Monocytes % (auto) 12.2 %; Neutrophils # (auto) 5.55 K/uL (1.4-6.5); Neutrophils % (auto) 61.6 %; Platelet Count 352 K/uL (130-400); RDW Coefficient of Variation 15.8 % (11.5-14.5); RDW Standard Deviation 46.9 fL (36.4-46.3); Red Blood Count 3.59 M/uL (4.7-6.1); White Blood Count 9.01 K/uL (4.8-10.8)
[2019-02-15] MEDS: MAGNESIUM OXIDE 400 MG TAB PO SCH (07:43)
[2019-02-15] MEDS: AMOXICILLIN/CLAVULANATE 875 MG TAB PO SCH ×2 (07:43→20:20)
[2019-02-15] MEDS: METOPROLOL TARTRATE 25 MG TAB PO SCH (07:43)
[2019-02-15] MEDS: DIVALPROEX DELAY RELEASE 250 MG TABEC PO SCH ×2 (07:43→20:19)
[2019-02-15] MEDS: PANTOprazole 40 MG TAB PO SCH (07:43)
[2019-02-15] MEDS: BENZTROPINE MESYLATE 0.5 MG TAB PO SCH ×2 (07:43→20:21)
[2019-02-15 07:44] LABS: BUN Creatinine Ratio 25.2 (10-20); Calcium 8.4 mg/dl (8.5-10.1); Creatinine Clr Calc Pharmacy 85.3 ml/min; Est GFR (African American) 124.3; Est GFR (Non-African American) 107.3; Potassium 4.1 mmol/L (3.5-5.1)
[2019-02-15] MEDS: risperiDONE 2 MG TABLET PO SCH ×2 (07:44→20:20)
[2019-02-15] MEDS: AZITHROMYCIN 250 MG TAB PO SCH (07:44)
[2019-02-15] MEDS: LACTASE 3000 UNIT TAB PO SCH ×4 (07:44→20:18)
[2019-02-15] MEDS: SODIUM CHLORIDE 1 GM TABLET PO SCH (07:44)
[2019-02-15] MEDS: NICOTINE 7 MG/24 HR TDSY TD SCH (07:45)
[2019-02-15] MEDS ORDERED: Nursing to Pharmacy Communication ONE (15:20)
--- NOTE | 2019-02-15 15:57 | Hospitalist Progress Note ---
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 Pneumonia right lower lobe pneumonia and other patchy infiltrates seen later on Chest CT on bilateral lung gomez Patient met SIRS/sepsis criteria on admission; On admission patient hypotensive with SBP < 100, tachycardic, lactate normal, Received IVF per protocol, 2L while in ED Blood cultures 02/11/19 were drawn and received Broad spectrum IV antibiotics with cefepime and vancomycin in the ED Hypotension/tachycardia in setting of infection; tachycardia improved after being resumed on metoprolol and blood pressure is more stable now -Source: -procalcitonin positive -has been on Zosyn currently as MRSA screen negative -reviewed with patient the Chest CT findings on 02/13/19 and Have de-escalated the IV antibiotics from Zosyn to IV Ceftriaxone and Azithromycin and transferred from telemetry to medical mabry as heart rate is adequately controlled. -As per pulmonary physician CT has some patchy infiltrates patient should complete at least 5 days of antibiotics -on 02/14/19 will transition from IV ceftriaxone and IV azithromycin to oral Augmentin at night and then completely to oral Augmentin and oral azithromycin starting on 02/15/19 as long as patient tolerates -There is a 9 mm spiculated appearing nodule in the left lower lobe. This is pathologically indeterminant but concerning for neoplasm. A 2-3 month follow-up examination is recommended in follow-up. CT chest impressions from 02/13/19 1. Cardiomegaly and emphysema. 2. Patchy bibasilar airspace consolidation has almost completely resolved as compared to 01/25/2019. 3. There is a 9 mm spiculated appearing nodule in the left lower lobe. This is pathologically indeterminant but concerning for neoplasm. A 2-3 month follow-up examination is recommended in follow-up. 4. Additional foci of patchy nodular groundglass change are seen throughout the right lung and in the left upper lobe. This is likely on an infectious/inflammatory basis, and this should also be reassessed at follow-up. 5. 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 6. There is mild ectasia of the ascending thoracic aorta which measures up to 3.5 cm. 7. Large hiatal hernia. 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 (3) Hypomagnesemia: admission serum magnesium 1.3 and IV supplementation was given with IV fluids serum magnesium corrected as 2 as of 02/12/19 but then it was 1.7 on repeat labs additional magnesium supplements given on 02/13/19 and serum magnesium is 2 on 02/14/19 (4) Hyponatremia: -Chronic hyponatremia with serum 129 on admission, in setting of polydipsia -serum sodium has corrected with IV fluids with serum sodium of 136 in AM of 02/12/19 -serum sodium stable as 135 on repeat on 02/12/19 -serum sodium 132 on 02/14/19, and patient given sodium tablets -serum sodium 136 on 02/15/19, hold sodium tablets for now (5) COPD (chronic obstructive pulmonary disease): -no acute exacerbation (6) Esophageal cancer: Oncology diagnosis: - 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 - No evidence of distant metastatic noted at that time the diagnosis in November 2018. - Long-standing history of smoking present. - He was scheduled for endoscopic treatment for the lower esophageal carcinoma but then he was admitted in the hospital with upper GI bleed, had received blood transfusion, - Recent CT scan of chest shows some 9 mm right lower lobe nodule which could be primary lung cancer or metastatic disease but it is too small to characterize, earlier PET/CT scan did not show any metabolic active lung lesions. Now he schedule for similar procedure in early march 2019 at [facility] (03/12/2019). -continue slippery minced moist diet and aspiration precautions as per speech and swallow services Cachexia -Boost supplements with meals (7) Anemia: History of recent Upper GI bleed in previous hospital stays in setting of current esophageal Cancer -CBC is stable (8) HTN (hypertension): switch from metoprolol tartrate BID to home dose of metoprolol succinate 25 mg daily (9) Paranoid schizophrenia: -continue depakote, risperdal, seroquel, trazodone, cogentin -follows with psych as outpatient (10) Kevin esophagus: -continue PPI and ranitidine (11) GERD (gastroesophageal reflux disease): -continue PPI and ranitidine (12) Tobacco abuse: -encourage tobacco cessation -Nicotine patch (13) DVT prophylaxis: -SCDS, avoid chemical prophylaxis for now given recent history of Upper GI Bleed Disposition: case management applying for physical therapy center as requested from patient's personal care facility [facility] Patient breathing on room air. no respiratory distress. Patient denies chest pain or abdominal pain. denies choking with food. reports he can take the antibiotics when crushed. 1 episode of diarrhea today Physical Exam Vital Signs (Past 24 Hours): Last Vital Signs Temp 36.6 C 02/15/19 14:56 Pulse 86 02/15/19 14:56 Resp 16 02/15/19 14:56 BP 99/61 L 02/15/19 14:56 Pulse Ox 96 02/15/19 14:56 Constitutional: + thin Eyes: PERRL, conjunctivae normal, anicteric sclerae EOM intact bilaterally ENMT: external ear and nose normal, oropharynx normal Neck: normal visual inspection Respiratory: normal respiratory effort Cardiovascular: Rate/Rhythm: regular rate and regular rhythm Gastrointestinal (Abdomen): normal bowel sounds, soft, nontender, no hepatosplenomegaly Musculoskeletal: Head/Neck/Chest: normocephalic and head atraumatic Neurologic: PERRL, EOMI, accommodation nl, no face palsy, no dysarthria CN's II-XI intact bilaterally Psychiatric: Orientation: alert and oriented x 3 (1) PNA (pneumonia) Pneumonia type: due to unspecified organism Laterality: bilateral Lung location: unspecified part of lung Qualified Code(s): J18.9 - Pneumonia, unspecified organism (2) HTN (hypertension) Hypertension type: essential hypertension Qualified Code(s): I10 - Essential (primary) hypertension
[2019-02-15] MEDS: QUETIAPINE FUMARATE 200 MG TAB PO SCH (17:23)
[2019-02-15] MEDS: TRAZODONE HCL 100 MG TAB PO SCH (20:19)
[2019-02-16] MEDS: risperiDONE 2 MG TABLET PO SCH ×2 (08:42→20:28)
[2019-02-16] MEDS: BENZTROPINE MESYLATE 0.5 MG TAB PO SCH ×2 (08:42→20:27)
[2019-02-16] MEDS: DIVALPROEX DELAY RELEASE 250 MG TABEC PO SCH ×2 (08:42→20:27)
[2019-02-16] MEDS: AMOXICILLIN/CLAVULANATE 875 MG TAB PO SCH ×2 (08:42→20:26)
[2019-02-16] MEDS: PANTOprazole 40 MG TAB PO SCH (08:42)
[2019-02-16] MEDS: LACTASE 3000 UNIT TAB PO SCH ×4 (08:43→20:27)
[2019-02-16] MEDS: MAGNESIUM OXIDE 400 MG TAB PO SCH (08:43)
[2019-02-16] MEDS: AZITHROMYCIN 250 MG TAB PO SCH (08:43)
[2019-02-16] MEDS: METOPROLOL SUCC 25MG EXT REL TAB PO SCH (08:43)
[2019-02-16] MEDS: NICOTINE 7 MG/24 HR TDSY TD SCH (08:43)
--- NOTE | 2019-02-16 16:20 | Progress Note ---
DATE: 02/16/2019 PULMONARY MEDICINE PROGRESS NOTE Chart reviewed and the patient examined. SUBJECTIVE: A 73-year-old white male, resident of [facility] was admitted with healthcare-associated pneumonia and with a previous smoking history. He states he is ready for transfer to a rehab facility before he goes back to [facility] and just awaits disposition. He has no symptoms of cough, pleuritic pain and has been afebrile. PHYSICAL EXAMINATION: VITAL SIGNS: Temperature is 36.5, pulse 82 and regular, respiratory rate 14, blood pressure 128/72, O2 sat 95% on room air. SKIN: Without lesion. HEENT: Atraumatic, normocephalic. PERRLA. LUNGS: Distant P and A. CARDIAC: Regular rate and rhythm. No murmurs or gallops. ABDOMEN: Soft, scaphoid. No evidence for hepatosplenomegaly. EXTREMITIES: No pedal edema, clubbing or cyanosis. NEUROLOGIC: Intact. DIAGNOSTIC DATA: CT scan on 02/13 was reviewed with comparison to previous film on 01/25/2019 shows cardiomegaly and emphysema, patchy bibasilar airspace consolidation, is almost completely resolved since 01/25/2019, but a 9 mm spiculated nodule in left lower lobe persists and 3-month followup is suggested. OVERALL ASSESSMENT: A 72-year-old with healthcare-acquired pneumonia, significantly resolved on oral medications and potential transfer to be rehab facility. Will need followup CT scan in 3 months to make sure that spiculated nodule is not neoplastic.
--- NOTE | 2019-02-16 16:45 | Hospitalist Progress Note ---
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 Pneumonia right lower lobe pneumonia and other patchy infiltrates seen later on Chest CT on bilateral lung gomez Patient met SIRS/sepsis criteria on admission; On admission patient hypotensive with SBP < 100, tachycardic, lactate normal, Received IVF per protocol, 2L while in ED Blood cultures 02/11/19 were drawn and received Broad spectrum IV antibiotics with cefepime and vancomycin in the ED Hypotension/tachycardia in setting of infection; tachycardia improved after being resumed on metoprolol and blood pressure is more stable now -Source: -procalcitonin positive -has been on Zosyn currently as MRSA screen negative -reviewed with patient the Chest CT findings on 02/13/19 and Have de-escalated the IV antibiotics from Zosyn to IV Ceftriaxone and Azithromycin and transferred from telemetry to medical mabry as heart rate is adequately controlled. -As per pulmonary physician CT has some patchy infiltrates patient should complete at least 5 days of antibiotics -on 02/14/19 was transition from IV ceftriaxone and IV azithromycin to oral Augmentin at night and then completely to oral Augmentin and oral azithromycin starting on 02/15/19 -02/16/19 continue oral Augmentin and oral azithromycin CT chest impressions from 02/13/19 1. Cardiomegaly and emphysema. 2. Patchy bibasilar airspace consolidation has almost completely resolved as compared to 01/25/2019. 3. There is a 9 mm spiculated appearing nodule in the left lower lobe. This is pathologically indeterminant but concerning for neoplasm. A 2-3 month follow-up examination is recommended in follow-up. 4. Additional foci of patchy nodular groundglass change are seen throughout the right lung and in the left upper lobe. This is likely on an infectious/inflammatory basis, and this should also be reassessed at follow-up. 5. 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 6. There is mild ectasia of the ascending thoracic aorta which measures up to 3.5 cm. 7. Large hiatal hernia. Management of pulmonary nodule in left lower lobe -There is a 9 mm spiculated appearing nodule in the left lower lobe. This is pathologically indeterminant but concerning for neoplasm. A 2-3 month follow-up examination is recommended in follow-up. 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 (3) Hypomagnesemia: admission serum magnesium 1.3 and IV supplementation was given with IV fluids serum magnesium corrected as 2 as of 02/12/19 but then it was 1.7 on repeat labs additional magnesium supplements given on 02/13/19 and serum magnesium is 2 on 02/14/19 (4) Hyponatremia: -Chronic hyponatremia with serum 129 on admission, in setting of polydi psia -serum sodium has corrected with IV fluids with serum sodium of 136 in AM of 02/12/19 -serum sodium stable as 135 on repeat on 02/12/19 -serum sodium 132 on 02/14/19, and patient given sodium tablets -serum sodium 136 on 02/15/19, hold sodium tablets for now (5) COPD (chronic obstructive pulmonary disease): -no acute exacerbation (6) Esophageal cancer: Oncology diagnosis: - 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 - No evidence of distant metastatic noted at that time the diagnosis in November 2018. - Long-standing history of smoking present. - He was scheduled for endoscopic treatment for the lower esophageal carcinoma but then he was admitted in the hospital with upper GI bleed, had received blood transfusion, - Recent CT scan of chest shows some 9 mm right lower lobe nodule which could be primary lung cancer or metastatic disease but it is too small to characterize, earlier PET/CT scan did not show any metabolic active lung lesions. Now he schedule for similar procedure in early March 2019 at [facility] (03/12/2019). -continue slippery minced moist diet and aspiration precautions as per speech and swallow services Cachexia -Boost supplements with meals (7) Anemia: History of recent Upper GI bleed in previous hospital stays in setting of current esophageal Cancer -CBC is stable (8) HTN (hypertension): metoprolol succinate 25 mg daily (9) Paranoid schizophrenia: -continue depakote, risperdal, seroquel, trazodone, cogentin -follows with psych as outpatient (10) Kevin esophagus: -continue PPI and ranitidine (11) GERD (gastroesophageal reflux disease): -continue PPI and ranitidine (12) Tobacco abuse: -encourage tobacco cessation -Nicotine patch (13) DVT prophylaxis: -SCDS, avoid chemical prophylaxis for now given recent history of Upper GI Bleed Disposition: case management applying for physical therapy centers as requested from patient's personal care facility [facility] Patient breathing on room air. no respiratory distress. Patient denies chest pain or abdominal pain. denies choking with food or pills Physical Exam Vital Signs (Past 24 Hours): Last Vital Signs Temp 36.4 C L 02/16/19 15:43 Pulse 88 02/16/19 15:43 Resp 18 02/16/19 15:43 BP 100/63 02/16/19 15:43 Pulse Ox 97 02/16/19 15:43 Constitutional: WD/WN, vitals as above + thin Eyes: PERRL, conjunctivae normal, anicteric sclerae EOM intact bilaterally ENMT: external ear and nose normal, oropharynx normal Neck: normal visual inspection Respiratory: normal respiratory effort Cardiovascular: Rate/Rhythm: regular rate and regular rhythm Gastrointestinal (Abdomen): normal bowel sounds, soft, nontender, no hepatosplenomegaly Musculoskeletal: Head/Neck/Chest: normocephalic and head atraumatic Neurologic: PERRL, EOMI, accommodation nl, no face palsy, no dysarthria CN's II-XI intact bilaterally Psychiatric: Orientation: alert and oriented x 3 (1) PNA (pneumonia) Pneumonia type: due to unspecified organism Laterality: bilateral Lung location: unspecified part of lung Qualified Code(s): J18.9 - Pneumonia, unspecified organism (2) HTN (hypertension) Hypertension type: essential hypertension Qualified Code(s): I10 - Essential (primary) hypertension
[2019-02-16] MEDS: QUETIAPINE FUMARATE 200 MG TAB PO SCH (17:20)
[2019-02-16] MEDS: TRAZODONE HCL 100 MG TAB PO SCH (20:27)
[2019-02-17] MEDS: DIVALPROEX DELAY RELEASE 250 MG TABEC PO SCH (08:42)
[2019-02-17] MEDS: risperiDONE 2 MG TABLET PO SCH (08:42)
[2019-02-17] MEDS: AMOXICILLIN/CLAVULANATE 875 MG TAB PO SCH (08:43)
[2019-02-17] MEDS: BENZTROPINE MESYLATE 0.5 MG TAB PO SCH (08:43)
[2019-02-17] MEDS: LACTASE 3000 UNIT TAB PO SCH ×2 (08:43→12:15)
[2019-02-17] MEDS: MAGNESIUM OXIDE 400 MG TAB PO SCH (08:43)
[2019-02-17] MEDS: AZITHROMYCIN 250 MG TAB PO SCH (08:43)
[2019-02-17] MEDS: NICOTINE 7 MG/24 HR TDSY TD SCH ×3 (08:44→14:56)
[2019-02-17] MEDS: PANTOprazole 40 MG TAB PO SCH (08:44)
[2019-02-17] MEDS: METOPROLOL SUCC 25MG EXT REL TAB PO SCH (10:49)
--- NOTE | 2019-02-17 13:47 | Hospitalist Progress Note ---
Date of Service February 17, 2019 Assessment & Plan (1) Sepsis: (2) PNA (pneumonia): This is a 73-year-old white male with significant past medical history of paranoid schizophrenia, COPD, hypertension, Kevin's esophagus, recently diagnosed adenocarcinoma of the esophagus on 11/2017, recent upper GI bleed who presents to [facility] ED secondary to difficulty walking, tachycardia, cough and low blood pressure times 1 day. Pneumonia right lower lobe pneumonia and other patchy infiltrates seen later on Chest CT on bilateral lung gomez Patient met SIRS/sepsis criteria on admission; On admission patient hypotensive with SBP < 100, tachycardic, lactate normal, Received IVF per protocol, 2L while in ED Blood cultures 02/11/19 were drawn and received Broad spectrum IV antibiotics with cefepime and vancomycin in the ED Hypotension/tachycardia in setting of infection; tachycardia improved after being resumed on metoprolol and blood pressure is more stable now -Source: -procalcitonin positive -has been on Zosyn currently as MRSA screen negative -reviewed with patient the Chest CT findings on 02/13/19 and Have de-escalated the IV antibiotics from Zosyn to IV Ceftriaxone and Azithromycin and transferred from telemetry to medical mabry as heart rate is adequately controlled. -As per pulmonary physician CT has some patchy infiltrates patient should complete at least 5 days of antibiotics -on 02/14/19 was transition from IV ceftriaxone and IV azithromycin to oral Augmentin at night and then completely to oral Augmentin and oral azithromycin starting on 02/15/19 -02/16/19 continue oral Augmentin and oral azithromycin -02/17/19 discharge on oral Augmentin and oral azithromycin for [address] chest impressions from 02/13/19 1. Cardiomegaly and emphysema. 2. Patchy bibasilar airspace consolidation has almost completely resolved as compared to 01/25/2019. 3. There is a 9 mm spiculated appearing nodule in the left lower lobe. This is pathologically indeterminant but concerning for neoplasm. A 2-3 month follow-up examination is recommended in follow-up. 4. Additional foci of patchy nodular groundglass change are seen throughout the right lung and in the left upper lobe. This is likely on an infectious/inflammatory basis, and this should also be reassessed at follow-up. 5. 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 6. There is mild ectasia of the ascending thoracic aorta which measures up to 3.5 cm. 7. Large hiatal hernia. Management of pulmonary nodule in left lower lobe -There is a 9 mm spiculated appearing nodule in the left lower lobe. This is pathologically indeterminant but concerning for neoplasm. A 2-3 month follow-up examination is recommended in follow-up. 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 (3) Hypomagnesemia: admission serum magnesium 1.3 and IV supplementation was given with IV fluids serum magnesium corrected as 2 as of 02/12/19 but then it was 1.7 on repeat labs additional magnesium supplements given on 02/13/19 and serum magnesium is 2 on 02/14/19 continue daily oral magnesium supplementation and prescription is provided on discharge (4) Hyponatremia: -Chronic hyponatremia with serum 129 on admission, in setting of polydipsia -serum sodium has corrected with IV fluids with serum sodium of 136 in AM of 02/12/19 -serum sodium stable as 135 on repeat on 02/12/19 -serum sodium 132 on 02/14/19, and patient given sodium tablets -serum sodium 136 on 02/15/19, sodium tablets were stopped (5) COPD (chronic obstructive pulmonary disease): -no acute exacerbation (6) Esophageal cancer: Oncology diagnosis: - 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 - No evidence of distant metastatic noted at that time the diagnosis in November 2018. - Long-standing history of smoking present. - He was scheduled for endoscopic treatment for the lower esophageal carcinoma but then he was admitted in the hospital with upper GI bleed, had received blood transfusion, - Recent CT scan of chest shows some 9 mm right lower lobe nodule which could be primary lung cancer or metastatic disease but it is too small to characterize, earlier PET/CT scan did not show any metabolic active lung lesions. Now he schedule for similar procedure in early March 2019 at [facility] (03/12/2019). -continue slippery minced moist diet and aspiration precautions as per speech and swallow services Cachexia -Boost supplements with meals (7) Anemia: History of recent Upper GI bleed in previous hospital stays in setting of current esophageal Cancer -CBC is stable (8) HTN (hypertension): metoprolol succinate 25 mg daily (9) Paranoid schizophrenia: -continue depakote, risperdal, seroquel, trazodone, cogentin -follows with psych as outpatient (10) Kevin esophagus: -continue PPI and ranitidine (11) GERD (gastroesophageal reflux disease): -continue PPI and ranitidine (12) Tobacco abuse: -encourage tobacco cessation -Nicotine patch inpatient and discharge with nicotine patch (13) DVT prophylaxis: -SCDS, avoid chemical prophylaxis for now given recent history of Upper GI Bleed Discharge diagnosis sepsis, PNA (pneumonia), 9 mm pulmonary nodule in the left lower lobe, Lower esophageal adenocarcinoma, Kevin esophagus, cachexia, anemia, Hypomagnesemia, Chronic Hyponatremia, Tobacco abuse, History of schizophrenia Discharge Disposition: Patient did better with physical therapy and [facility] willing to accept patient back Discharge Instructions Patient should take oral Augmentin and oral azithromycin for 4 more days. Will need to follow with primary care doctor in senior care in 1 week. continue daily magnesium oral supplement prescription and nicotine patch to avoid smoking continue slippery minced moist diet and aspiration precautions as per speech and swallow services There is a 9 mm spiculated appearing nodule in the left lower lobe. This is pathologically indeterminant but concerning for neoplasm. A 2-3 month follow-up examination is recommended in follow-up. 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 Subjective Patient breathing on room air. no respiratory distress. Patient denies chest pain or abdominal pain. denies choking with food or pills Physical Exam 2 Vital Signs (Past 24 Hours): Last Vital Signs Temp 36.9 C 02/17/19 11:24 Pulse 97 H 02/17/19 11:24 Resp 18 02/17/19 11:24 BP 95/60 L 02/17/19 11:24 Pulse Ox 96 02/17/19 11:24 Constitutional: WD/WN, vitals as above + thin Eyes: PERRL, conjunctivae normal, anicteric sclerae EOM intact bilaterally ENMT: external ear and nose normal, oropharynx normal Neck: normal visual inspection Respiratory: normal respiratory effort Cardiovascular: Rate/Rhythm: regular rate and regular rhythm Gastrointestinal (Abdomen): normal bowel sounds, soft, nontender, no hepatosplenomegaly Musculoskeletal: Head/Neck/Chest: normocephalic and head atraumatic Neurologic: PERRL, EOMI, accommodation nl, no face palsy, no dysarthria CN's II-XI intact bilaterally Psychiatric: Orientation: alert and oriented x 3 (1) HTN (hypertension) Hypertension type: essential hypertension Qualified Code(s): I10 - Essential (primary) hypertension (2) PNA (pneumonia) Laterality: bilateral Lung location: unspecified part of lung Pneumonia type: due to unspecified organism Qualified Code(s): J18.9 - Pneumonia, unspecified organism
--- NOTE | 2019-02-17 14:03 | Discharge Summary ---
Date of Service February 17, 2019 Admission HPI Per Admitting Provider This is a 73-year-old white male with significant past medical history of paranoid schizophrenia, COPD, hypertension, Kevin's esophagus, recently diagnosed adenocarcinoma of the esophagus on 11/2017, recent upper GI bleed who presents to [facility] ED secondary to difficulty walking, tachycardia, cough and low blood pressure times 1 day. Patient recently hospitalized 01/22 to 01/26/19 secondary to upper GI bleed in setting of recent diagnosis of adenocarcinoma of the esophagus and known Kevin's esophagus. At that hospitalization he did receive 3 units of PRBC. He was transferred to [facility] for hopeful treatment of his and esophageal adenocarcinoma; however, no further procedure was performed and his GI bleed ceased. While nursing facility he was noted to have shuffling gait, "this is always how I know I have pneumonia." Further he was tachycardic, hypotensive and therefore was sent to ED for further evaluation. He does complain of a chronic nonproductive cough as well as shortness breath with exertion which is unchanged. His appetite has been diminished and he has noted some weight loss, unknown amount. Denies fever, chills, sweats, lightheadedness, dizziness, chest pain, shortness of breath at rest, nausea, vomiting, abdominal pain, dysuria, increased frequency or urgency with urination, hematuria, hematochezia, hemoptysis. Patient has had multiple admissions secondary to pneumonia. During his recent admission he underwent speech therapy evaluation and dx with soto aspiration, recommended slippery texture with nectar thick liquids. Unknown if following at personal care facility. Admission Exam Per Admitting Provider Gen: Thin, frail, elderly, male, NAD, sitting up in bed, pleasant, conversing easily Head: Normocephalic, Atraumatic, b/l temporal and buccal wasting Eyes: Sclera normal, no conjunctival injection, PERRLA, EOMI ENT: Gross hearing intact, normal pharynx, mucous membranes moist, absent dentition, tardive dyskinesia of tongue Neck: supple, no adenopathy, No JVD, no bruit, Resp: Clear to auscultation b/l with diminished breath sounds at bases, no wheeze, rales, rhonchi. Normal insp/exp effort, no accessory muscle use CV: Regular rate, regular rhythm, no murmur, rub, gallop, or ectopy Abd: +BS x 4, soft, nontender, nondistended Musculoskeletal: moves extremities active rom x 4, strength intact, good director advanced strength Extremities: No edema bilaterally Skin: warm, moist, no rash, negative turgor, cap refill < 2sec Neuro: Alert and oriented x 3, speech normal, + TD of tongue, good mood/affect, cran nerve 2-12 intact grossly : deferred Principal Diagnosis sepsis, PNA (pneumonia), 9 mm pulmonary nodule in the left lower lobe, Lower esophageal adenocarcinoma, Kevin esophagus, cachexia, anemia, Hypomagnesemia, Chronic Hyponatremia, Tobacco abuse, History of schizophrenia Discharge Exam Constitutional WD/WN, vitals as above + thin Eyes PERRL, conjunctivae normal, anicteric sclerae EOM intact bilaterally ENMT external ear and nose normal, oropharynx normal Neck normal visual inspection Respiratory normal respiratory effort Cardiovascular Rate/Rhythm: regular rate and regular rhythm Gastrointestinal (Abdomen) normal bowel sounds, soft, nontender, no hepatosplenomegaly Musculoskeletal Head/Neck/Chest: normocephalic and head atraumatic Neurologic PERRL, EOMI, accommodation nl, no face palsy, no dysarthria CN's II-XI intact bilaterally Psychiatric Orientation: alert and oriented x 3 Discharge Data Allergies Allergy/AdvReac Type Severity Reaction Status Date / Time buspirone Allergy Unknown Verified 02/11/19 12:45 clonazepam Allergy Unknown unknown Verified 02/11/19 12:45 clozapine Allergy Unknown Verified 02/11/19 12:45 Consultations 02/11/19 14:26 ED Decision to Admit Stat 02/11/19 16:17 Consult Case Management - Discharge Planning Routine 02/13/19 11:20 Consult Pulmonology Routine 02/13/19 11:35 Consult Oncology Routine Ordered Studies 02/11/19 12:35 CT head/brain wo con Stat 02/13/19 07:30 CT chest w con Routine Hospital Course (1) Sepsis: (2) PNA (pneumonia): This is a 73-year-old white male with significant past medical history of paranoid schizophrenia, COPD, hypertension, Kevin's esophagus, recently diagnosed adenocarcinoma of the esophagus on 11/2017, recent upper GI bleed who presents to [facility] ED secondary to difficulty walking, tachycardia, cough and low blood pressure times 1 day. Pneumonia right lower lobe pneumonia and other patchy infiltrates seen later on Chest CT on bilateral lung gomez Patient met SIRS/sepsis criteria on admission; On admission patient hypotensive with SBP < 100, tachycardic, lactate normal, Received IVF per protocol, 2L while in ED Blood cultures 02/11/19 were drawn and received Broad spectrum IV antibiotics with cefepime and vancomycin in the ED Hypotension/tachycardia in setting of infection; tachycardia improved after being resumed on metoprolol and blood pressure is more stable now -Source: -procalcitonin positive -has been on Zosyn currently as MRSA screen negative -reviewed with patient the Chest CT findings on 02/13/19 and Have de-escalated the IV antibiotics from Zosyn to IV Ceftriaxone and Azithromycin and transferred from telemetry to medical mabyr as heart rate is adequately controlled. -As per pulmonary physician CT has some patchy infiltrates patient should complete at least 5 days of antibiotics -on 02/14/19 was transition from IV ceftriaxone and IV azithromycin to oral Augmentin at night and then completely to oral Augmentin and oral azithromycin starting on 02/15/19 -02/16/19 continue oral Augmentin and oral azithromycin -02/17/19 discharge on oral Augmentin and oral azithromycin for [address] chest impressions from 02/13/19 1. Cardiomegaly and emphysema. 2. Patchy bibasilar airspace consolidation has almost completely resolved as compared to 01/25/2019. 3. There is a 9 mm spiculated appearing nodule in the left lower lobe. This is pathologically indeterminant but concerning for neoplasm. A 2-3 month follow-up examination is recommended in follow-up. 4. Additional foci of patchy nodular groundglass change are seen throughout the right lung and in the left upper lobe. This is likely on an infectious/inflammatory basis, and this should also be reassessed at follow-up. 5. 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 6. There is mild ectasia of the ascending thoracic aorta which measures up to 3. 5 cm. 7. Large hiatal hernia. Management of pulmonary nodule in left lower lobe -There is a 9 mm spiculated appearing nodule in the left lower lobe. This is pathologically indeterminant but concerning for neoplasm. A 2-3 month follow-up examination is recommended in follow-up. 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 (3) Hypomagnesemia: admission serum magnesium 1.3 and IV supplementation was given with IV fluids serum magnesium corrected as 2 as of 02/12/19 but then it was 1.7 on repeat labs additional magnesium supplements given on 02/13/19 and serum magnesium is 2 on 02/14/19 continue daily oral magnesium supplementation and prescription is provided on discharge (4) Hyponatremia: -Chronic hyponatremia with serum 129 on admission, in setting of polydipsia -serum sodium has corrected with IV fluids with serum sodium of 136 in AM of 02/12/19 -serum sodium stable as 135 on repeat on 02/12/19 -serum sodium 132 on 02/14/19, and patient given sodium tablets -serum sodium 136 on 02/15/19, sodium tablets were stopped (5) COPD (chronic obstructive pulmonary disease): -no acute exacerbation (6) Esophageal cancer: Oncology diagnosis: - 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 - No evidence of distant metastatic noted at that time the diagnosis in November 2018. - Long-standing history of smoking present. - He was scheduled for endoscopic treatment for the lower esophageal carcinoma but then he was admitted in the hospital with upper GI bleed, had received blood transfusion, - Recent CT scan of chest shows some 9 mm right lower lobe nodule which could be primary lung cancer or metastatic disease but it is too small to characterize, earlier PET/CT scan did not show any metabolic active lung lesions. Now he schedule for similar procedure in early March 2019 at [facility] (03/12/2019). -continue slippery minced moist diet and aspiration precautions as per speech and swallow services Cachexia -Boost supplements with meals (7) Anemia: History of recent Upper GI bleed in previous hospital stays in setting of current esophageal Cancer -CBC is stable (8) HTN (hypertension): metoprolol succinate 25 mg daily (9) Paranoid schizophrenia: -continue depakote, risperdal, seroquel, trazodone, cogentin -follows with psych as outpatient (10) Kevin esophagus: -continue PPI and ranitidine (11) GERD (gastroesophageal reflux disease): -continue PPI and ranitidine (12) Tobacco abuse: -encourage tobacco cessation -Nicotine patch inpatient and discharge with nicotine patch (13) DVT prophylaxis: -SCDS, avoid chemical prophylaxis for now given recent history of Upper GI Bleed Discharge diagnosis sepsis, PNA (pneumonia), 9 mm pulmonary nodule in the left lower lobe, Lower esophageal adenocarcinoma, Kevin esophagus, cachexia, anemia, Hypomagnesemia, Chronic Hyponatremia, Tobacco abuse, History of schizophrenia Discharge Disposition: Patient did better with physical therapy and [facility] willing to accept patient back Discharge Instructions Patient should take oral Augmentin and oral azithromycin for 4 more days. Will need to follow with [facility] care doctor [place] [facility] in 1 week. continue daily magnesium oral supplement prescription and nicotine patch to avoid smoking continue slippery minced moist diet and aspiration precautions as per speech and swallow services There is a 9 mm spiculated appearing nodule in the left lower lobe. This is pathologically indeterminant but concerning for neoplasm. A 2-3 month follow-up examination is recommended in follow-up. 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 Patient to follow up at [facility] in [place] (03/12/2019) for following Oncology diagnosis of: - 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 Total Time Total Time Spent Total Time Spent (In Minutes): 40 minutes Total Time Includes: Examination of the Patient, Discharge Planning and Medication Reconciliation Discharge Plan Discharge Items Patient Disposition: Personal Senior Living Reason For Visit: BIBASILAR PNA Discharge Diagnosis: sepsis, PNA (pneumonia), 9 mm pulmonary nodule in the left lower lobe, Lower esophageal adenocarcinoma, Kevin esophagus, cachexia, anemia, Hypomagnesemia, Chronic Hyponatremia, Tobacco abuse, History of schizophrenia Condition: Good Discharge Goals: Improve disease control Activity: Resume your previous activity Non-emergency contact: Primary Care Provider and Specialist Call non-emergency contact if: you have any medication questions Follow-up/Referrals: [facility] [Primary Care Provider] - Diet: Heart Healthy Diet Texture: Dental soft (bite-sized) Liquid Consistency: [place] thick Addtl Provider Instructions: Discharge Disposition: Patient did better with physical therapy and [facility] willing to accept patient back Discharge Instructions Patient should take oral Augmentin and oral azithromycin for 4 more days. Will need to follow with primary care doctor in [facility] in 1 week. continue daily magnesium oral supplement prescription and nicotine patch to avoid smoking continue slippery minced moist diet and aspiration precautions as per speech and swallow services There is a 9 mm spiculated appearing nodule in the left lower lobe. This is pathologically indeterminant but concerning for neoplasm. A 2-3 month follow-up examination is recommended in follow-up. 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 Patient to follow up at [facility] in [place] (03/12/2019) for following Oncology diagnosis of: - 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 Prescriptions: New azithromycin [Zithromax] 250 mg Tablet 250 mg PO QAM 5 Days Qty: 5 RF: 0 amoxicillin-pot clavulanate 875-125 mg Tablet 1 tab PO BID 5 Days Qty: 10 RF: 0 nicotine [Nicoderm CQ] 7 mg/24 hr Patch 24 Hour 7 mg transdermal QAM 30 Days Qty: 30 RF: 0 magnesium oxide 400 mg (241.3 mg magnesium) Tablet 400 mg PO QAM 30 Days Qty: 30 RF: 0 Continued omeprazole 40 mg Capsule,Delayed Release(Dr/Ec) 40 mg PO QAM RF: 0 acetaminophen [Acetaminophen Extra Strength] 500 mg Tablet 1,000 mg PO Q8H PRN (Reason: Pain) RF: 0 Dairy Relief 9,000 unit Tablet 9,000 unit PO QID RF: 0 trazodone 100 mg Tablet 100 mg PO HS RF: 0 ranitidine HCl 150 mg Tablet 150 mg PO BID RF: 0 calcium carbonate [Calcium Antacid] 200 mg calcium (500 mg) Tablet,Chewable 200 - 400 mg PO DAILY RF: 0 metoprolol succinate 25 mg Tablet Extended Release 24 Hr 25 mg PO QAM RF: 0 albuterol sulfate [Ventolin HFA] 90 mcg/actuation Hfa Aerosol Inhaler 2 puff INHALATION QID PRN (Reason: sob) RF: 0 quetiapine 400 mg Tablet 400 mg PO QPM RF: 0 guaifenesin [Mucinex] 600 mg Tablet Extended Release 12hr 600 mg PO BID PRN (Reason: Congestion) RF: 0 polyethylene glycol 3350 [Miralax] 17 gram powder in packet 17 gm PO DAILY PRN (Reason: Constipation) RF: 0 Preparation H 0.25-14-74.9 % Ointment 1 applic MO TID PRN (Reason: Hemorrhoids) RF: 0 ipratropium bromide 0.02 % Solution 0.5 mg NEB Q6R PRN (Reason: shortness of breath or wheezing) Qty: 75 RF: 1 potassium chloride 10 mEq tablet,ER particles/crystals 10 meq PO BID RF: 0 diphenhydramine HCl [Banophen] 25 mg Capsule 25 mg PO HS PRN (Reason: Tremor(S)) RF: 0 alum-mag hydroxide-simeth [Rulox] 200-200-20 mg/5 mL Suspension 10 ml PO Q4H PRN (Reason: Diarrhea) RF: 0 Reguloid Powder 1 tsp PO DAILY PRN (Reason: Indigestion) RF: 0 benztropine 0.5 mg Tablet 0.5 mg PO BID RF: 0 divalproex 250 mg Tablet,Delayed Release (Dr/Ec) 250 mg PO BID RF: 0 risperidone 2 mg Tablet 2 mg PO BID RF: 0 Stand-Alone Forms: [facility] Discharge Orders: Discharge Order (Routine); Ordered 02/17/19 Ordered By: Marlo Grider Admission Data Admit Date/Time: 02/11/19 15:03 Attending Provider: Marlo Grider Admit Provider: Yahir Swift Primary Care Provider: [facility] Other Providers: Yahir Swift ; Elie Alvarenga ; Alie Limon Service: Medical Other Pending Studies at Discharge: No
== END 2019-02-17 15:45 | disposition home or self-care (01) | DRG 871 ==
LOC: ED 11:52 → 2S 15:03 → 4E 02-13 11:36

== ENCOUNTER 2019-03-08 07:57 | Inpatient (IN) ==
[2019-03-08] MEDS ORDERED: LEVOFLOXACIN/D5W 750 MG/150 ML BAG IV STA (08:08)
[2019-03-08] MEDS ORDERED: PIPERACILLIN/TAZOBACTAM 4.5 GM/120 ML BAG IV STA (08:08)
[2019-03-08] MEDS ORDERED: SODIUM CHLORIDE 0.9% 1000ML 2,000 ML IV SCH (08:15)
--- NOTE | 2019-03-08 08:17 | Emergency Department Note ---
Entered by Ирина Becerra acting as a scribe for Vaibhav Traore DO History of Present Illness General Chief complaint: Shortness of Breath/Dyspnea Stated complaint: confusion/sob Time Seen by Provider: 03/08/19 08:02 Source: EMS History of Present Illness Onset (ago): hour(s) (this morning) Location: chest Pain Consistency: + other (episode) Quality: + other (shortness of breath) Associated symptoms: + denies other symptoms (any significant pain), + confusion and + cough The patient is a 73 year old male that is presenting to the Emergency Room with complaints of an episode of shortness of breath with an accompanying cough. The patient is a poor historian. EMS reported that the patients roommate at the [facility] called a nurse because he was concerned about the patients breathing. EMS states that the patient was found to have a low grade fever while at the facility. EMS notes that the patient has been confused since being picked up this morning. The patient is able to remember his birthday and is aware that he is at the Emergency Room. The patient denies being in any pain. Home Medications Home Medications Medication Instructions Recorded Confirmed Type Dairy Relief 9,000 unit PO QID 09/09/18 03/08/19 History acetaminophen [Acetaminophen Extra 1,000 mg PO Q8H PRN 09/09/18 03/08/19 History Strength] albuterol sulfate [Ventolin HFA] 2 puff INHALATION QID PRN 09/09/18 03/08/19 History calcium carbonate [Calcium Antacid] 200 - 400 mg PO DAILY 09/09/18 03/08/19 History guaifenesin [Mucinex] 600 mg PO BID PRN 09/09/18 03/08/19 History metoprolol succinate 25 mg PO QAM 09/09/18 03/08/19 History omeprazole 40 mg PO QAM 09/09/18 03/08/19 History quetiapine 400 mg PO QPM 09/09/18 03/08/19 History ranitidine HCl 150 mg PO BID 09/09/18 03/08/19 History trazodone 100 mg PO HS 09/09/18 03/08/19 History Preparation H 1 applic TN TID PRN 10/16/18 03/08/19 History ipratropium bromide 0.5 mg NEB Q6R PRN #75 ml 10/19/18 03/08/19 Rx potassium chloride 10 meq PO BID 10/28/18 03/08/19 History Reguloid 1 tsp PO DAILY PRN 01/06/19 03/08/19 History alum-mag hydroxide-simeth [Rulox] 10 ml PO Q4H PRN 01/06/19 03/08/19 History diphenhydramine HCl [Banophen] 25 mg PO HS PRN 01/06/19 03/08/19 History polyethylene glycol 3350 [Miralax] 17 gm PO DAILY PRN 01/22/19 03/08/19 History benztropine 0.5 mg PO BID 02/11/19 03/08/19 History divalproex 250 mg PO BID 02/11/19 03/08/19 History risperidone 2 mg PO BID 02/11/19 03/08/19 History magnesium oxide 400 mg PO QAM 30 Days #30 tab 02/17/19 03/08/19 Rx nicotine [Nicoderm CQ] 7 mg TRANSDERMAL QAM 30 Days #30 ea 02/17/19 03/08/19 Rx Allergies Allergy/AdvReac Type Severity Reaction Status Date / Time buspirone Allergy Unknown Verified 03/08/19 08:32 clonazepam Allergy Unknown unknown Verified 03/08/19 08:32 clozapine Allergy Unknown Verified 03/08/19 08:32 Past Med/Surg History Medical History Esophageal cancer (Acute) History of esophageal cancer (Chronic) 11/20/18 EGD: Nodular ulcerated lesion. EUS: Mass lower third esophagus. Biopsies positive for adenocarcinoma. Paranoid schizophrenia (Chronic) COPD (chronic obstructive pulmonary disease) (Chronic) HTN (hypertension) (Chronic) GERD (gastroesophageal reflux disease) (Chronic) Tobacco abuse (Chronic) Kevin esophagus (Chronic) GI bleed Sepsis Surgical History History of esophagogastroduodenoscopy (EGD) (Chronic) History of skin graft (Chronic) as child History of bowel resection (Chronic) "for diverticulitis " in 2009 Family History Mother Stroke Thyroid disorder Father Heart attack Other Heart disease Social History Preferred Language: Slovak Communication Ability: Effective Visual Impairment: No Limitations Beliefs That Will Affect Care: Adventist Adventist Beliefs: Rastafari Current Living Situation: Personal Care Facility Current Living Situation Comment: [facility] Feels Safe at Home: Yes Smoking Status: Former smoker Tobacco Type: cigarettes Cigarettes Per Day: 20 Second Hand Exposure: No Hx Alcohol Use: No Hx Substance Use: No Review of Systems See HPI for pertinent positives & negatives. and A total of 10 systems reviewed and were otherwise negative Physical Exam Vital Signs Vital Signs - 24 hr 03/08/19 08:06 03/08/19 08:33 03/08/19 08:46 Temperature 40 C H Temperature Source Oral Sepsis Recent Fever Within 48 Hours Yes Sepsis New/Unexplained Change in Mental Status Yes Sepsis Action Taken by Nursing Physician Notified Pulse Rate 109 H 119 H 131 H Pulse Rate from SpO2 Sensor 121 H 132 H Respiratory Rate 24 26 H 27 H Blood Pressure 150/100 H 141/92 H 126/91 Blood Pressure Mean 116 108 102 Pulse Oximetry 88 L 95 96 Oxygen Delivery Method Room Air Nasal Cannula Oxygen Flow Rate 0 2 CONSTITUTIONAL/VITAL SIGNS: Reviewed / noted above. GENERAL: Non-toxic in appearance. INTEGUMENTARY: Warm, dry, and [place]. HEAD: Normocephalic. EYES: without scleral icterus or trauma. ENT/OROPHARYNX: clear and moist. LYMPHADENOPATHY/NECK: Is supple without lymphadenopathy or meningismus. RESPIRATORY: Lungs clear and diminished bilaterally. CARDIOVASCULAR: Regular rate and rhythm. GI/ABDOMEN: Soft and nontender. No organomegaly or pulsatile mass. No rebound or guarding. Normal bowel sounds. EXTREMITIES: Warm and well perfused. BACK: No CVA tenderness. NEUROLOGICAL: Intact without focal deficits. PSYCHIATRIC: normal affect. MUSCULOSKELETAL: Normally developed with good muscle tone. Course 0803:The patient was evaluated in room A02. A complete history and physical examination was performed. 28: I reviewed the patient's case with Dr. Alfa Aguilar [facility], who will evaluate the patient for further management. 0940: Upon reevaluation, the patient is resting comfortably. I discussed laboratory and radiographic results with the patient. He verbalized agreement of the treatment plan. The patient will be evaluated for further management and ca re. Administered Medications Sodium Chloride (Nss 1000ml) 2,000 mls @ 999 mls/hr IV .Q2H1M SOCORRO Stop: 03/08/19 10:15 Last Admin: 03/08/19 08:29 Dose: 999 mls/hr Documented by: [id number] Discontinued Medications Acetaminophen (Tylenol) 500 mg PO NOW STA Stop: 03/08/19 08:41 Last Admin: 03/08/19 08:54 Dose: 500 mg Documented by: [id number] Levofloxacin/Dextrose (Levaquin/D5w) 750 mg in 150 mls @ 100 mls/hr IV NOW STA Stop: 03/08/19 09:37 Last Admin: 03/08/19 08:46 Dose: 100 mls/hr Documented by: [id number] Piperacillin Sod/Tazobactam Sod (Zosyn) 4.5 gm in 120 mls @ 200 mls/hr IV NOW STA Stop: 03/08/19 08:43 Last Infusion: 03/08/19 09:06 Dose: 0 mls/hr Documented by: [id number] Admin: 03/08/19 08:29 Dose: 200 mls/hr Documented by: [id number] Medical Decision Making Differential Diagnosis Differential includes viral illness, influenza, streptococcal pharyngitis, meningitis, pneumonia, sinusitis, UTI, pyelonephritis, otitis media. Medical Records Attestation: I reviewed the patient's medical records. Home Medications Current Medication List: was personally reviewed by me Laboratory Data Attestation: I reviewed the patient's lab results. Result diagrams: 03/08/19 08:17 03/08/19 08:17 Lab Results 03/08/19 03/08/19 03/08/19 Range/Units 08:17 08:17 08:17 WBC (4.8-10.8) K/uL RBC (4.7-6.1) M/uL Hgb (14.0-18.0) g/dL Hct (42-52) % MCV (80-100) fL MCH (25-34) pg MCHC (32-36) g/dL RDW Std Deviation (36.4-46.3) fL RDW Coeff of Migel (11.5-14.5) % Plt Count (130-400) K/uL MPV (7.4-10.4) fL Immature Gran % (Auto) % Neut % (Auto) % Lymph % (Auto) % [place] % (Auto) % Eos % (Auto) % Baso % (Auto) % Immature Gran # (Auto) (0.00-0.02) K/uL Neut # (Auto) (1.4-6.5) K/uL Lymph # (Auto) (1.2-3.4) K/uL [place] # (Auto) (0.11-0.59) K/uL Eos # (Auto) (0-0.5) K/uL Baso # (Auto) (0-0.2) K/uL Toxic Granulation PT 11.4 (9.0-12.0) Seconds INR 1.1 (0.9-1.1) Sodium (136-145) mmol/L Potassium (3.5-5.1) mmol/L Chloride (98-107) mmol/L Carbon Dioxide (21-32) mmol/L Anion Gap (3-11) BUN (7-18) mg/dl Creatinine (0.6-1.4) mg/dl Est Cr Clr Drug Dosing ml/min Est GFR ( Amer) Est GFR (Non-Af Amer) BUN/Creatinine Ratio (10-20) Glucose (70-99) mg/dl POC Lactic Acid Fernando (0.90-1.70) mmol/L Calcium (8.5-10.1) mg/dl Total Bilirubin (0.2-1) mg/dl AST (15-37) U/L ALT (12-78) U/L Alkaline Phosphatase (45-117) U/L Troponin I < 0.015 (0-0.045) ng/ml Total Protein (6.4-8.2) gm/dl Albumin (3.4-5.0) gm/dl Globulin (2.5-4.0) gm/dl Albumin/Globulin Ratio (0.9-2) Procalcitonin 1.28 H (0-0.5) ng/ml Urine Color Urine Appearance (Clear) Urine pH (4.5-7.5) Ur Specific [place] (1.000-1.030) Urine Protein (Negative) Urine Glucose (UA) (Negative) Urine Ketones (Negative) Urine Blood (Negative) Urine Nitrite (Negative) Urine Bilirubin (Negative) Urine Urobilinogen (Negative) Ur Leukocyte Esterase (Negative) Influenza Type A Ag (Neg) Influenza Type B Ag (Neg) 03/08/19 03/08/19 03/08/19 Range/Units 08:17 08:17 08:21 WBC 13.39 H (4.8-10.8) K/uL RBC 3.75 L (4.7-6.1) M/uL Hgb 10.0 L (14.0-18.0) g/dL Hct 29.1 L (42-52) % MCV 77.6 L (80-100) fL MCH 26.7 (25-34) pg MCHC 34.4 (32-36) g/dL RDW Std Deviation 47.8 H (36.4-46.3) fL RDW Coeff of Migel 16.8 H (11.5-14.5) % Plt Count 417 H (130-400) K/uL MPV 8.9 (7.4-10.4) fL Immature Gran % (Auto) 1.7 % Neut % (Auto) 80.2 % Lymph % (Auto) 8.7 % [place] % (Auto) 8.8 % Eos % (Auto) 0.4 % Baso % (Auto) 0.2 % Immature Gran # (Auto) 0.23 H (0.00-0.02) K/uL Neut # (Auto) 10.72 H (1.4-6.5) K/uL Lymph # (Auto) 1.17 L (1.2-3.4) K/uL [place] # (Auto) 1.18 H (0.11-0.59) K/uL Eos # (Auto) 0.06 (0-0.5) K/uL Baso # (Auto) 0.03 (0-0.2) K/uL Toxic Granulation 1+ PT (9.0-12.0) Seconds INR (0.9-1.1) Sodium 129 L (136-145) mmol/L Potassium 4.4 (3.5-5.1) mmol/L Chloride 95 L (98-107) mmol/L Carbon Dioxide 26 (21-32) mmol/L Anion Gap 8.0 (3-11) BUN 8 (7-18) mg/dl Creatinine 0.57 L (0.6-1.4) mg/dl Est Cr Clr Drug Dosing 93.0 ml/min Est GFR ( Amer) 119.7 Est GFR (Non-Af Amer) 103.3 BUN/Creatinine Ratio 14.3 (10-20) Glucose 103 H (70-99) mg/dl POC Lactic Acid Fernando (0.90-1.70) mmol/L Calcium 8.9 (8.5-10.1) mg/dl Total Bilirubin 0.2 (0.2-1) mg/dl AST 15 (15-37) U/L ALT 16 (12-78) U/L Alkaline Phosphatase 97 (45-117) U/L Troponin I (0-0.045) ng/ml Total Protein 7.5 (6.4-8.2) gm/dl Albumin 3.1 L (3.4-5.0) gm/dl Globulin 4.4 H (2.5-4.0) gm/dl Albumin/Globulin Ratio 0.7 L (0.9-2) Procalcitonin (0-0.5) ng/ml Urine Color Urine Appearance (Clear) Urine pH (4.5-7.5) Ur Specific [place] (1.000-1.030) Urine Protein (Negative) Urine Glucose (UA) (Negative) Urine Ketones (Negative) Urine Blood (Negative) Urine Nitrite (Negative) Urine Bilirubin (Negative) Urine Urobilinogen (Negative) Ur Leukocyte Esterase (Negative) Influenza Type A Ag Neg for Influ A (Neg) Influenza Type B Ag Neg for Influ B (Neg) 03/08/19 03/08/19 Range/Units 08:22 08:29 WBC (4.8-10.8) K/uL RBC (4.7-6.1) M/uL Hgb (14.0-18.0) g/dL Hct (42-52) % MCV (80-100) fL MCH (25-34) pg MCHC (32-36) g/dL RDW Std Deviation (36.4-46.3) fL RDW Coeff of Migel (11.5-14.5) % Plt Count (130-400) K/uL MPV (7.4-10.4) fL Immature Gran % (Auto) % Neut % (Auto) % Lymph % (Auto) % [place] % (Auto) % Eos % (Auto) % Baso % (Auto) % Immature Gran # (Auto) (0.00-0.02) K/uL Neut # (Auto) (1.4-6.5) K/uL Lymph # (Auto) (1.2-3.4) K/uL [place] # (Auto) (0.11-0.59) K/uL Eos # (Auto) (0-0.5) K/uL Baso # (Auto) (0-0.2) K/uL Toxic Granulation PT (9.0-12.0) Seconds INR (0.9-1.1) Sodium (136-145) mmol/L Potassium (3.5-5.1) mmol/L Chloride (98-107) mmol/L Carbon Dioxide (21-32) mmol/L Anion Gap (3-11) BUN (7-18) mg/dl Creatinine (0.6-1.4) mg/dl Est Cr Clr Drug Dosing ml/min Est GFR ( Amer) Est GFR (Non-Af Amer) BUN/Creatinine Ratio (10-20) Glucose (70-99) mg/dl POC Lactic Acid Fernando 1.48 (0.90-1.70) mmol/L Calcium (8.5-10.1) mg/dl Total Bilirubin (0.2-1) mg/dl AST (15-37) U/L ALT (12-78) U/L Alkaline Phosphatase (45-117) U/L Troponin I (0-0.045) ng/ml Total Protein (6.4-8.2) gm/dl Albumin (3.4-5.0) gm/dl Globulin (2.5-4.0) gm/dl Albumin/Globulin Ratio (0.9-2) Procalcitonin (0-0.5) ng/ml Urine Color Yellow Urine Appearance Clear (Clear) Urine pH 8.0 H (4.5-7.5) Ur Specific [place] 1.011 (1.000-1.030) Urine Protein Negative (Negative) Urine Glucose (UA) Negative (Negative) Urine Ketones Negative (Negative) Urine Blood Negative (Negative) Urine Nitrite Negative (Negative) Urine Bilirubin Negative (Negative) Urine Urobilinogen Negative (Negative) Ur Leukocyte Esterase Negative (Negative) Influenza Type A Ag (Neg) Influenza Type B Ag (Neg) Imaging Data Radiologist's Impression: Radiology results as stated below per my review and the radiologist's interpretation: XR chest 1V portable HISTORY: 73 years-old Male cough/fever acute cough with fever COMPARISON: Chest CT 02/13/2019, chest radiograph 02/11/2019 TECHNIQUE: Portable AP view of the chest FINDINGS: Cardiomediastinal and hilar silhouettes are unchanged. Emphysema with areas of chronic interstitial coarsening. The previously described nodular opacity of the right midlung better seen on comparison chest radiograph. No pneumothorax, pleural effusion, overt pulmonary edema or new focal airspace consolidation. Degenerative changes of the shoulders and spine. Moderate hiatal hernia. Calcification of the thoracic aortic arch. IMPRESSION: 1. No acute process. 2. Emphysema with chronic interstitial coarsening. 3. Moderate hiatal hernia. The above report was generated using voice recognition software. It may contain grammatical, syntax or spelling errors. Electronically signed by: Silas Mclaughlin M.D. 03/08/2019 8:34 AM ECG Data Attestation: I personally reviewed and interpreted this ECG as follows: Indication: SOB/dyspnea Rate (beats per minute): 110 Rhythm: sinus tachycardia Findings: + ST depression (Lateral); no PAC, no PVC, no ST elevation and no ectopy Blood Pressure Blood Pressure Findings: Elevated blood pressure Blood Pressure Disposition: further management by hospitalist MDM Narrative This is a 73-year-old male who presents to the ED with a chief complaint of some confusion, fever shortness of breath. The patient is a poor historian. He resides a local senior living. He denies any specific complaints. His temperature today here was 40 C. His oxygen saturations on room air was 88%. He does not use oxygen at home. He was tachycardic with a heart rate of 109. Lungs are diminished bilaterally but otherwise appear to be clear. No other abnormalities on physical exam were appreciated. Chest x-ray did not show acute process. EKG shows a sinus tach with some T wave inversions in the lateral l neda but no ST elevation. Left loss of count was elevated at 13.4. Sodium was 129. Urine did not show obvious infection and flu swab was negative. Troponin was negative. Procalcitonin was mildly elevated and lactic acid was negative. Patient was given IV fluids as well as IV Zosyn and IV Levaquin. Will be seen by the hospitalist for further inpatient evaluation and care. Impression & Plan Fever, Pneumonia, Hypoxia, Tachycardia, Acute hyponatremia Discharge Plan Visit Data Chief Complaint: Shortness of Breath/Dyspnea Stated Complaint: confusion/sob ED Provider: Vaibhav Traore Discharge Problem: Fever, Pneumonia, Hypoxia, Tachycardia, Acute hyponatremia Patient Disposition: Being Evaluated by Hospitalist Forms Stand Alone Forms: [facility] Prescriptions Prescriptions: No Action omeprazole 40 mg Capsule,Delayed Release(Dr/Ec) 40 mg PO QAM RF: 0 acetaminophen [Acetaminophen Extra Strength] 500 mg Tablet 1,000 mg PO Q8H PRN (Reason: Pain) RF: 0 Dairy Relief 9,000 unit Tablet 9,000 unit PO QID RF: 0 trazodone 100 mg Tablet 100 mg PO HS RF: 0 ranitidine HCl 150 mg Tablet 150 mg PO BID RF: 0 calcium carbonate [Calcium Antacid] 200 mg calcium (500 mg) Tablet,Chewable 200 - 400 mg PO DAILY RF: 0 metoprolol succinate 25 mg Tablet Extended Release 24 Hr 25 mg PO QAM RF: 0 albuterol sulfate [Ventolin HFA] 90 mcg/actuation Hfa Aerosol Inhaler 2 puff INHALATION QID PRN (Reason: sob) RF: 0 quetiapine 400 mg Tablet 400 mg PO QPM RF: 0 guaifenesin [Mucinex] 600 mg Tablet Extended Release 12hr 600 mg PO BID PRN (Reason: Congestion) RF: 0 polyethylene glycol 3350 [Miralax] 17 gram powder in packet 17 gm PO DAILY PRN (Reason: Constipation) RF: 0 Preparation H 0.25-14-74.9 % Ointment 1 applic TN TID PRN (Reason: Hemorrhoids) RF: 0 ipratropium bromide 0.02 % Solution 0.5 mg NEB Q6R PRN (Reason: shortness of breath or wheezing) Qty: 75 RF: 1 potassium chloride 10 mEq tablet,ER particles/crystals 10 meq PO BID RF: 0 diphenhydramine HCl [Banophen] 25 mg Capsule 25 mg PO HS PRN (Reason: Tremor(S)) RF: 0 alum-mag hydroxide-simeth [Rulox] 200-200-20 mg/5 mL Suspension 10 ml PO Q4H PRN (Reason: Diarrhea) RF: 0 Reguloid Powder 1 tsp PO DAILY PRN (Reason: Indigestion) RF: 0 benztropine 0.5 mg Tablet 0.5 mg PO BID RF: 0 divalproex 250 mg Tablet,Delayed Release (Dr/Ec) 250 mg PO BID RF: 0 risperidone 2 mg Tablet 2 mg PO BID RF: 0 nicotine [Nicoderm CQ] 7 mg/24 hr Patch 24 Hour 7 mg transdermal QAM 30 Days Qty: 30 RF: 0 magnesium oxide 400 mg (241.3 mg magnesium) Tablet 400 mg PO QAM 30 Days Qty: 30 RF: 0 Referrals Referrals: [facility], [facility] [Primary Care Provider] - The scribe's documentation has been prepared under my direction and personally reviewed by me in its entirety. I confirm that the note above accurately reflects all work, treatment, procedures, and medical decision making performed by me.
[2019-03-08 08:32] LABS: Hematocrit (blood only) 29.1 % (42-52); Mean Corpuscular Hgb Conc 34.4 g/dL (32-36); Mean Corpuscular Volume 77.6 fL (80-100); Mean Platelet Volume 8.9 fL (7.4-10.4); Platelet Count 417 K/uL (130-400); RDW Coefficient of Variation 16.8 % (11.5-14.5); RDW Standard Deviation 47.8 fL (36.4-46.3); Red Blood Count 3.75 M/uL (4.7-6.1); White Blood Count 13.39 K/uL (4.8-10.8)
--- NOTE | 2019-03-08 08:35 | XRay Report ---
XR chest 1V portable HISTORY: 73 years-old Male cough/fever acute cough with fever COMPARISON: Chest CT 02/13/2019, chest radiograph 02/11/2019 TECHNIQUE: Portable AP view of the chest FINDINGS: Cardiomediastinal and hilar silhouettes are unchanged. Emphysema with areas of chronic interstitial c oarsening. The previously described nodular opacity of the right midlung better seen on comparison ch est radiograph. No pneumothorax, pleural effusion, overt pulmonary edema or new focal airspace consol idation. Degenerative changes of the shoulders and spine. Moderate hiatal hernia. Calcification of th e thoracic aortic arch. IMPRESSION: 1. No acute process. 2. Emphysema with chronic interstitial coarsening. 3. Moderate hiatal hernia. The above report was generated using voice recognition software. It may contain grammatical, syntax o r spelling errors. Electronically signed by: Silas Mclaughlin M.D. 03/08/2019 8:34 AM
[2019-03-08] MEDS ORDERED: ACETAMINOPHEN 500 MG TAB PO STA (08:40)
[2019-03-08 08:52] LABS: Albumin Level 3.1 gm/dl (3.4-5.0); BUN Creatinine Ratio 14.3 (10-20); Calcium 8.9 mg/dl (8.5-10.1); Est GFR (African American) 119.7; Est GFR (Non-African American) 103.3; Potassium 4.4 mmol/L (3.5-5.1)
[2019-03-08 08:55] LABS: Albumin Globulin Ratio 0.7 (0.9-2); Bilirubin,Total 0.2 mg/dl (0.2-1); Globulin 4.4 gm/dl (2.5-4.0); Total Protein 7.5 gm/dl (6.4-8.2)
[2019-03-08 08:57] LABS: INR 1.1 (0.9-1.1); Prothrombin Time 11.4 Seconds (9.0-12.0)
[2019-03-08 09:05] LABS: Appearance Urine Clear (Clear); Bilirubin Urine Negative (Negative); Blood Urine Negative (Negative); Color Urine Yellow; Glucose Urine UA Negative (Negative); Ketones Urine Negative (Negative); Leukocyte Esterase Urine Negative (Negative); Nitrite Urine Negative (Negative); Protein Urine Negative (Negative); Specific Gravity Urine 1.011 (1.000-1.030); Urobilinogen Urine Negative (Negative)
[2019-03-08 09:08] LABS: Basophils # (auto) 0.03 K/uL (0-0.2); Basophils % (auto) 0.2 %; Eosinophils # (auto) 0.06 K/uL (0-0.5); Eosinophils % (auto) 0.4 %; Immature Granulocytes # (auto) 0.23 K/uL (0.00-0.02); Immature Granulocytes % (auto) 1.7 %; Lymphocytes # (auto) 1.17 K/uL (1.2-3.4); Lymphocytes % (auto) 8.7 %; Monocytes # (auto) 1.18 K/uL (0.11-0.59); Monocytes % (auto) 8.8 %; Neutrophils # (auto) 10.72 K/uL (1.4-6.5); Neutrophils % (auto) 80.2 %; Toxic Granulation 1+
[2019-03-08] MEDS ORDERED: ACETAMINOPHEN 325 MG TAB PO PRN (09:58)
[2019-03-08] MEDS ORDERED: ONDANSETRON INJ 2 MG/ML 2 ML VIAL IV PRN (09:58)
[2019-03-08] MEDS ORDERED: SODIUM CHLORIDE 0.9% 1000ML 1,000 ML IV SCH (10:00)
[2019-03-08] MEDS ORDERED: VANCOMYCIN CONSULT ACTIVE PRN (10:20)
[2019-03-08] MEDS ORDERED: LEVOFLOXACIN CONSULT ACTIVE PRN (10:21)
[2019-03-08] MEDS ORDERED: PIPERACILL/TAZOBAC CONSULT ACTIVE PRN (10:21)
[2019-03-08] MEDS ORDERED: VANCOMYCIN HCL 1,250 MG in SODIUM CHLORIDE 0.9% 250 ML IV SCH (10:30)
[2019-03-08 10:35] LABS: Influenza A virus by PCR Neg for Influ A (Neg); Influenza B virus by PCR Neg for Influ B (Neg)
--- NOTE | 2019-03-08 11:22 | CT Scan Report ---
CT head/brain wo con CLINICAL HISTORY: 73 years-old Male with confusion. Acutely altered mental status with confusion TECHNIQUE: Multiple axial CT images of the head were obtained without contrast. A dose lowering tech nique was utilized adhering to the principles of ALARA. COMPARISON: CT head 02/11/2019. FINDINGS: No acute intracranial hemorrhage, midline shift, intracranial mass, hydrocephalus, territorial ischem ia or abnormal extra-axial collection. Age-related involutional changes. Patchy white matter hypodens ities suggest underlying chronic microvascular ischemic changes. Cerebral vascular calcifications are noted. Study is motion degraded. The calvarium is intact. Mastoid air cells are clear. Mild mucosal thickening about the maxillary an d ethmoid sinuses. Soft tissues and orbits are unremarkable. IMPRESSION: Motion degraded exam without acute intracranial abnormality. The above report was generated using voice recognition software. It may contain grammatical, syntax o r spelling errors. Electronically signed by: Silas Mclaughlin M.D. 03/08/2019 11:20 AM
--- NOTE | 2019-03-08 11:30 | CT Scan Report ---
CT chest wo con CT DOSE: 1448.95 mGy.cm CLINICAL HISTORY: 73 years-old Male with hypoxia, sepsis. Acute sepsis with cough and hypoxia TECHNIQUE: Multiaxial CT images of the chest were performed without contrast. A dose lowering techni que was utilized adhering to the principles of ALARA. COMPARISON: Chest CT 02/13/2019 FINDINGS: Homogeneous thyroid. Evaluation for adenopathy is limited without the use of IV contrast. Small peric ardial effusion. Coronary arterial calcifications are noted. No thoracic aortic aneurysm. Since of ca lcification of the thoracic aorta great vessels. Unopacified pulmonary artery is unremarkable. Trace left pleural effusion. Respiratory motion limits dilation of the lung parenchyma. Emphysema wit h bilateral bronchial wall thickening. Patchy bilateral consolidative and groundglass opacities are n oted within all lobes bilaterally. For example, consolidation about the apical segment right upper lo be measures up to 2.0 cm and contains central lucency, likely secondary to underlying emphysema rathe r than cavitation. Mild mucous plugging about the lung bases. 9 mm solid nodule of the left lower lob e on image 200 series 13 is better seen on comparison. Large hiatal hernia. Secretions are noted throughout the esophagus. No acute process of the imaged up per abdomen. The study is also limited secondary to patient upper extremity positioning. Degenerative changes of the shoulders and spine. IMPRESSION: 1. Motion degraded exam. 2. Patchy multifocal consolidative and groundglass opacities within all lobes bilaterally suggests mu ltifocal pneumonia. 3. Emphysema with bilateral bronchial wall thickening and mild bibasilar mucous plugging. 4. Trace left pleural effusion. 5. 9 mm solid nodule of the left lower lobe appears unchanged. 3 month follow-up chest CT recommended . 6. Large hiatal hernia. Please refer to below summary of Fleischner criteria recommendations for follow-up of incidental CT n odules (Teressa Acharya, Guidelines for management of small pulmonary nodules detected on CT scans: A sta tement from the Fleischner Society, Radiology 237: [phone].) Electronically signed by: Silas Mclaughlin M.D. 03/08/2019 11:28 AM
[2019-03-08] MEDS ORDERED: CONSULT PHARMACY STA (11:37)
[2019-03-08] MEDS: SODIUM CHLORIDE 0.9% 1000ML 1,000 ML IV SCH ×2 (12:32→21:51)
[2019-03-08] MEDS: POTASSIUM CHLORIDE 10 MEQ TABCR PO SCH ×2 (12:34→21:53)
[2019-03-08] MEDS: NICOTINE 7 MG/24 HR TDSY TD SCH (12:34)
[2019-03-08] MEDS: DIVALPROEX DELAY RELEASE 250 MG TABEC PO SCH ×2 (12:34→21:53)
[2019-03-08] MEDS: risperiDONE 2 MG TABLET PO SCH ×2 (12:34→21:54)
[2019-03-08] MEDS: PANTOprazole 40 MG TAB PO SCH (12:34)
[2019-03-08] MEDS ORDERED: DOXYCYCLINE HYCLATE 100 MG in DEXTROSE 5% 100 ML IV SCH (13:00)
[2019-03-08] MEDS ORDERED: IPRATROPIUM BROMIDE NEB SOLN 0.02% 2.5 ML VIAL INH SCH (14:00)
[2019-03-08] MEDS ORDERED: XOPENEX/ATROVENT 0.63mg/0.5MG NEB COMBO NEB SCH (14:00)
[2019-03-08] MEDS ORDERED: LEVALBUTEROL HCL 0.63 MG/3 ML NEB NEB SCH (14:00)
[2019-03-08] MEDS: PIPERACILLIN/TAZOBACTAM 3.375 GM in DEXTROSE 5% 100 ML IV SCH ×2 (14:20→21:56)
--- NOTE | 2019-03-08 15:25 | Pharmacy Report ---
Pharmacy Abx Initial Consult - Date of Service March 08, 2019 - Pharmacy Dosing Scope Date of Consult: 03/08/19 Consultation requested by: Dr. Aguilar Pharmacy is consulted to initiate Vancomycin + Zosyn IV dosing therapy, order appropriate labs and adjust drug dose/frequency. - Subjective The patient is a 73 year old M admitted on 03/08/19 10:34. - Objective Height: 5 ft 7 in Weight: 55.3 kg Vital Signs (Past 12hrs): Vital Signs Temp Pulse Pulse Resp BP BP Pulse Ox 03/08/19 11:52 110 H 03/08/19 11:46 37.2 C 113 H 23 88/59 L 95 03/08/19 11:00 121 H 25 H 102/78 97 03/08/19 10:46 120 H 23 96/73 L 93 03/08/19 10:43 124 H 23 111/83 03/08/19 10:20 126 H 21 117/87 03/08/19 10:08 123 H 21 97/75 L 94 03/08/19 09:57 37.9 C H 03/08/19 09:46 125 H 21 94/75 L 96 03/08/19 09:34 123 H 20 94/78 L 96 03/08/19 09:16 116 H 25 H 93/72 L 93 03/08/19 09:01 123 H 26 H 143/86 H 97 03/08/19 08:46 131 H 27 H 126/91 96 03/08/19 08:33 119 H 26 H 141/92 H 95 03/08/19 08:06 40 C H 109 H 24 150/100 H 88 L Lab Results (24hrs): Laboratory Tests (24 Hours) 03/08/19 03/08/19 03/08/19 08:17 08:17 08:17 WBC 13.39 H Neut # (Auto) 10.72 H Creatinine 0.57 L Est Cr Clr Drug Dosing 93.0 Procalcitonin 1.28 H Micro Results: 03/08/19 08:17 Blood Culture - Pending Blood 03/08/19 08:20 Blood Culture - Pending Blood - Risk Factors for Resistance * Resident in a assisted or extended-care facility - Assessment & Plan Assessment 73 year old M admitted for Sepsis, possible source Pneumonia. Patient is smoker and comes from a assisted. Pharmacy consulted to dose Vancomycin, Zosyn and Doxycycline. Plan Vancomycin for treatment of Sepsis/ possible HCAP Vancomycin IV * Estimated PK Parameters: Vd 0.7 L/kg, Khang 0.057 hr-1, t1/2 12 hr * Loading dose: 1250 mg (22.6 mg/kg) x 1 dose given this AM. * Maintenance dose: 1000 mg IV (18 mg/kg) every 18 hours * Goal trough level for HCAP: 15 to 20 mcg/mL * Trough Vanco level ordered for 03/11/19 0800 (before 4th maintenance dose). Zosyn IV * Zosyn 4.5 g IV x 1 in ED then extended infusion Zosyn 3.375 gm IV q8h based on Scr = 0.57, calculated Crcl = 64 for elderly patient. Doxycycline IV * 100 mg IV q12h. No dose adjustments needed. Pharmacy will continue to follow and will adjust dose/frequency as necessary. Thank you.
[2019-03-08] MEDS ORDERED: SODIUM CHLORIDE 0.9% 10ML FLUSH IV ONE (16:08)
[2019-03-08] MEDS ORDERED: SODIUM BICARB 8.4% INJ 50 MEQ/50 ML SYR IV ONE (16:08)
--- NOTE | 2019-03-08 17:15 | History & Physical Report ---
Date of Service March 08, 2019 Assessment & Plan (1) Sepsis: (2) Multifocal pneumonia: Possible healthcare associated pneumonia VS aspiration pneumonia COPD exacerbation, smoker Was just discharged from [facility] for sepsis secondary to pneumonia 2019 Also evaluated by speech therapist, high aspiration risk, minced AND moist diet ordered Febrile, positive leukocytosis, positive tachypnea, positive lactic acid CT chest: 1. Motion degraded exam. 2. Patchy multifocal consolidative and groundglass opacities within all lobes bilaterally suggests multifocal pneumonia. 3. Emphysema with bilateral bronchial wall thickening and mild bibasilar mucous plugging. 4. Trace left pleural effusion. 5. 9 mm solid nodule of the left lower lobe appears unchanged. 3 month follow-up chest CT recommended. 6. Large hiatal hernia. Please refer to below summary of Fleischner criteria recommendations for follow- up of incidental CT nodules (Teressa Acharya, Guidelines for management of small pulmonary nodules detected on CT scans: A statement from the Fleischner Society, Radiology 237: [id number].) --Blood cultures Sputum cultures Nasal MRSA swab Empiric Vanco, Zosyn, doxycycline normal saline at 120 cc/hr Nebs Solu-Medrol 40 mg every 8 hours RE-consult speech therapy Encephalopathy secondary to above Mental status appears to be back to baseline CT head negative for acute process Hyponatremia Likely hypovolemic Possible component of SIADH secondary to pneumonia Check sodium level in the evening Gentle IV fluids Hypertension Reduce metoprolol to half his usual dose to prevent hypotension Esophageal cancer GERD History of upper GI bleed --Hemoglobin stable --Follow-up with GI PPI Abnormal CT findings per previous admission: There is a 9 mm spiculated appearing nodule in the left lower lobe. This is pathologically indeterminant but concerning for neoplasm. A 2-3 month follow-up examination is recommended in follow-up. 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 Schizophrenia Continue usual medications DVT prophylaxis SCDs for now in light of recent upper GI bleed, esophageal cancer Disposition Lives in [facility] History of Present Illness 73-year-old male with history of COPD, smoker, hypertension, recently diagnosed esophageal cancer, upper GI bleed, schizophrenia, presenting with confusion. Patient was recently admitted to [facility] for sepsis secondary to pneumonia. He was discharged on February 17, 2019. Today patient was brought back to the emergency room for shortness of breath and cough. At the, patient was febrile at 40 F and hypoxic at 80%. Lactic acid and procalcitonin elevated. He was started on Zosyn, IV fluids. On exam, the patient is sitting seen up in bed, not in distress but is tachypneic, with some effort when speaking. States he started to feel unwell since last night, associated with dry cough. States breathing is improved compared to when he first came in. Denies other symptoms Primary Care Provider: [employer], [facility] Allergies Allergy/AdvReac Type Severity Reaction Status Date / Time buspirone Allergy Unknown Verified 03/08/19 08:32 clonazepam Allergy Unknown unknown Verified 03/08/19 08:32 clozapine Allergy Unknown Verified 03/08/19 08:32 Home Medications Home Medications Medication Instructions Recorded Confirmed Type Dairy Relief 9,000 unit PO QID 09/09/18 03/08/19 History acetaminophen [Acetaminophen Extra 1,000 mg PO Q8H PRN 09/09/18 03/08/19 History Strength] albuterol sulfate [Ventolin HFA] 2 puff INHALATION QID PRN 09/09/18 03/08/19 History calcium carbonate [Calcium Antacid] 200 - 400 mg PO DAILY 09/09/18 03/08/19 History guaifenesin [Mucinex] 600 mg PO BID PRN 09/09/18 03/08/19 History metoprolol succinate 25 mg PO QAM 09/09/18 03/08/19 History omeprazole 40 mg PO QAM 09/09/18 03/08/19 History quetiapine 400 mg PO QPM 09/09/18 03/08/19 History ranitidine HCl 150 mg PO BID 09/09/18 03/08/19 History trazodone 100 mg PO HS 09/09/18 03/08/19 History Preparation H 1 applic [place] TID PRN 10/16/18 03/08/19 History ipratropium bromide 0.5 mg NEB Q6R PRN #75 ml 10/19/18 03/08/19 Rx potassium chloride 10 meq PO BID 10/28/18 03/08/19 History Reguloid 1 tsp PO DAILY PRN 01/06/19 03/08/19 History alum-mag hydroxide-simeth [Rulox] 10 ml PO Q4H PRN 01/06/19 03/08/19 History diphenhydramine HCl [Banophen] 25 mg PO HS PRN 01/06/19 03/08/19 History polyethylene glycol 3350 [Miralax] 17 gm PO DAILY PRN 01/22/19 03/08/19 History benztropine 0.5 mg PO BID 02/11/19 03/08/19 History divalproex 250 mg PO BID 02/11/19 03/08/19 History risperidone 2 mg PO BID 02/11/19 03/08/19 History magnesium oxide 400 mg PO QAM 30 Days #30 tab 02/17/19 03/08/19 Rx nicotine [Nicoderm CQ] 7 mg TRANSDERMAL QAM 30 Days #30 ea 02/17/19 03/08/19 Rx Past Med/Surg History Medical History Esophageal cancer (Acute) History of esophageal cancer (Chronic) 11/20/18 EGD: Nodular ulcerated lesion. EUS: Mass lower third esophagus. Biopsies positive for adenocarcinoma. Paranoid schizophrenia (Chronic) COPD (chronic obstructive pulmonary disease) (Chronic) HTN (hypertension) (Chronic) GERD (gastroesophageal reflux disease) (Chronic) Tobacco abuse (Chronic) Kevin esophagus (Chronic) GI bleed Sepsis Surgical History History of esophagogastroduodenoscopy (EGD) (Chronic) History of skin graft (Chronic) as child History of bowel resection (Chronic) "for diverticulitis " in 2009 Family History Mother Stroke Thyroid disorder Father Heart attack Other Heart disease Social History Preferred Language: Puerto Rican Communication Ability: confusion Visual Impairment: No Limitations 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 Other Information That Helps Us Care for You: No Feels Safe at Home: Yes Safety Concerns: Feels Safe At This Time Smoking Status: Former smoker Tobacco Type: cigarettes Cigarettes Per Day: 20 Do You Dip or Chew Tobacco: No Smoking End Date: Nov 2018 Second Hand Exposure: No Tobacco Cessation Education Requested by Patient: No Hx Alcohol Use: No Hx Substance Use: No Review of Systems Review of Systems: All systems reviewed & are unremarkable except as noted in HPI & below Physical Exam Physical Exam: General- oriented x 2, not in distress, speaks in sentences with mild effort mild accessory muscle use Head- atraumatic Eyes- PERRL, EOMI, anicteric ENT- oropharynx clear Neck- supple, no JVD, no adenopathy, no thyromegaly; carotids +2/2, no bruits appreciated Lungs-mild rhonchi bilaterally, no wheezing Heart- normal rate, regular rhythm; no murmur, no gallop, no rub appreciated Abdomen- normal bowel sounds, nondistended, soft, nontender, no masses or hepatosplenomegaly Extremities- no pretibial edema, no calf tenderness; peripheral pulses intact Neuro- alert, oriented x 2; CN 2-12 grossly intact; motor 5/5 bilaterally;sensation 100% on all extremities; no other gross focal neurologic deficits Skin- warm & dry Results & Data Vital Signs (Past 12 Hours) Vital Signs Temp Pulse Pulse Resp BP BP Pulse Ox 03/08/19 15:20 37.9 C H 123 H 25 H 114/75 91 03/08/19 11:52 110 H 03/08/19 11:46 37.2 C 113 H 23 88/59 L 95 03/08/19 11:00 121 H 25 H 102/78 97 03/08/19 10:46 120 H 23 96/73 L 93 03/08/19 10:43 124 H 23 111/83 03/08/19 10:20 126 H 21 117/87 03/08/19 10:08 123 H 21 97/75 L 94 03/08/19 09:57 37.9 C H 03/08/19 09:46 125 H 21 94/75 L 96 03/08/19 09:34 123 H 20 94/78 L 96 03/08/19 09:16 116 H 25 H 93/72 L 93 03/08/19 09:01 123 H 26 H 143/86 H 97 03/08/19 08:46 131 H 27 H 126/91 96 03/08/19 08:33 119 H 26 H 141/92 H 95 03/08/19 08:06 40 C H 109 H 24 150/100 H 88 L Laboratory Results Laboratory Results - last 24 hr 03/08/19 03/08/19 03/08/19 08:17 08:17 08:17 WBC RBC Hgb Hct MCV MCH MCHC RDW Std Deviation RDW Coeff of Migel Plt Count MPV Immature Gran % (Auto) Neut % (Auto) Lymph % (Auto) [place] % (Auto) Eos % (Auto) Baso % (Auto) Immature Gran # (Auto) Neut # (Auto) Lymph # (Auto) Upton # (Auto) Eos # (Auto) Baso # (Auto) Toxic Granulation PT 11.4 INR 1.1 Sodium Potassium Chloride Carbon Dioxide Anion Gap BUN Creatinine Est Cr Clr Drug Dosing Est GFR ( Amer) Est GFR (Non-Af Amer) BUN/Creatinine Ratio Glucose POC Lactic Acid Fernando Lactate Calcium Total Bilirubin AST ALT Alkaline Phosphatase Troponin I < 0.015 Total Protein Albumin Globulin Albumin/Globulin Ratio Procalcitonin 1.28 H Urine Color Urine Appearance Urine pH Ur Specific [place] Urine Protein Urine Glucose (UA) Urine Ketones Urine Blood Urine Nitrite Urine Bilirubin Urine Urobilinogen Ur Leukocyte Esterase Nasal Screen MRSA (PCR) Valproic Acid Influenza Type A Ag Influenza Type A (PCR) Influenza Type B Ag Influenza Type B (PCR) 03/08/19 03/08/19 03/08/19 08:17 08:17 08:21 WBC 13.39 H RBC 3.75 L Hgb 10.0 L Hct 29.1 L MCV 77.6 L MCH 26.7 MCHC 34.4 RDW Std Deviation 47.8 H RDW Coeff of Migel 16.8 H Plt Count 417 H MPV 8.9 Immature Gran % (Auto) 1.7 Neut % (Auto) 80.2 Lymph % (Auto) 8.7 Upton % (Auto) 8.8 Eos % (Auto) 0.4 Baso % (Auto) 0.2 Immature Gran # (Auto) 0.23 H Neut # (Auto) 10.72 H Lymph # (Auto) 1.17 L Upton # (Auto) 1.18 H Eos # (Auto) 0.06 Baso # (Auto) 0.03 Toxic Granulation 1+ PT INR Sodium 129 L Potassium 4.4 Chloride 95 L Carbon Dioxide 26 Anion Gap 8.0 BUN 8 Creatinine 0.57 L Est Cr Clr Drug Dosing 93.0 Est GFR ( Amer) 119.7 Est GFR (Non-Af Amer) 103.3 BUN/Creatinine Ratio 14.3 Glucose 103 H POC Lactic Acid Fernando Lactate Calcium 8.9 Total Bilirubin 0.2 AST 15 ALT 16 Alkaline Phosphatase 97 Troponin I Total Protein 7.5 Albumin 3.1 L Globulin 4.4 H Albumin/Globulin Ratio 0.7 L Procalcitonin Urine Color Urine Appearance Urine pH Ur Specific [place] Urine Protein Urine Glucose (UA) Urine Ketones Urine Blood Urine Nitrite Urine Bilirubin Urine Urobilinogen Ur Leukocyte Esterase Nasal Screen MRSA (PCR) Valproic Acid Influenza Type A Ag Neg for Influ A Influenza Type A (PCR) Influenza Type B Ag Neg for Influ B Influenza Type B (PCR) 03/08/19 03/08/19 03/08/19 08:21 08:22 08:29 WBC RBC Hgb Hct MCV MCH MCHC RDW Std Deviation RDW Coeff of Migel Plt Count MPV Immature Gran % (Auto) Neut % (Auto) Lymph % (Auto) Upton % (Auto) Eos % (Auto) Baso % (Auto) Immature Gran # (Auto) Neut # (Auto) Lymph # (Auto) Upton # (Auto) Eos # (Auto) Baso # (Auto) Toxic Granulation PT INR Sodium Potassium Chloride Carbon Dioxide Anion Gap BUN Creatinine Est Cr Clr Drug Dosing Est GFR ( Amer) Est GFR (Non-Af Amer) BUN/Creatinine Ratio Glucose POC Lactic Acid Fernando 1.48 Lactate Calcium Total Bilirubin AST ALT Alkaline Phosphatase Troponin I Total Protein Albumin Globulin Albumin/Globulin Ratio Procalcitonin Urine Color Yellow Urine Appearance Clear Urine pH 8.0 H Ur Specific [place] 1.011 Urine Protein Negative Urine Glucose (UA) Negative Urine Ketones Negative Urine Blood Negative Urine Nitrite Negative Urine Bilirubin Negative Urine Urobilinogen Negative Ur Leukocyte Esterase Negative Nasal Screen MRSA (PCR) Valproic Acid Influenza Type A Ag Influenza Type A (PCR) Neg for Influ A Influenza Type B Ag Influenza Type B (PCR) Neg for Influ B 03/08/19 03/08/19 03/08/19 11:30 12:02 12:02 WBC RBC Hgb Hct MCV MCH MCHC RDW Std Deviation RDW Coeff of Migel Plt Count MPV Immature Gran % (Auto) Neut % (Auto) Lymph % (Auto) [place] % (Auto) Eos % (Auto) Baso % (Auto) Immature Gran # (Auto) Neut # (Auto) Lymph # (Auto) [place] # (Auto) Eos # (Auto) Baso # (Auto) Toxic Granulation PT INR Sodium Potassium Chloride Carbon Dioxide Anion Gap BUN Creatinine Est Cr Clr Drug Dosing Est GFR ( Amer) Est GFR (Non-Af Amer) BUN/Creatinine Ratio Glucose POC Lactic Acid Fernando Lactate 1.4 Calcium Total Bilirubin AST ALT Alkaline Phosphatase Troponin I Total Protein Albumin Globulin Albumin/Globulin Ratio Procalcitonin Urine Color Urine Appearance Urine pH Ur Specific [place] Urine Protein Urine Glucose (UA) Urine Ketones Urine Blood Urine Nitrite Urine Bilirubin Urine Urobilinogen Ur Leukocyte Esterase Nasal Screen MRSA (PCR) Negative Valproic Acid 26 L Influenza Type A Ag Influenza Type A (PCR) Influenza Type B Ag Influenza Type B (PCR) Code Status & VTE Plan Code Status Full code as per patient
[2019-03-08] MEDS ORDERED: METOPROLOL TARTRATE 1 MG/ML VIAL IV STA ×2 (17:29→18:01)
[2019-03-08] MEDS ORDERED: METOPROLOL SUCC 25MG EXT REL TAB PO STA (17:35)
[2019-03-08] MEDS ORDERED: METOPROLOL TARTRATE 1 MG/ML VIAL IV ONE (18:05)
[2019-03-08] MEDS: methylPREDNISolone 40 MG in SYRINGE 0 ML IV SCH (18:08)
[2019-03-08] MEDS ORDERED: LORazepam 0.5 MG/1 ML VIAL IV STA (18:52)
[2019-03-08] MEDS ORDERED: METOPROLOL SUCC 25MG EXT REL TAB PO ONE (19:00)
[2019-03-08] MEDS: LEVALBUTEROL HCL 0.63 MG/3 ML NEB NEB SCH (19:28)
[2019-03-08] MEDS: ACETYLCYSTEINE 10% INHAL SOLN **DISPENSED FROM RESP. INH SCH (19:28)
[2019-03-08 20:11] LABS: HCO3 ABG 21 mmol/L (19-24); PCO2 ABG 30 mmHg (35-46); PO2 ABG 96 mm/Hg (80-95); pH ABG 7.47 (7.35-7.45)
[2019-03-08 20:12] LABS: Allen Test Pos (Pos)
--- NOTE | 2019-03-08 20:22 | XRay Report ---
XR chest 1V portable HISTORY: 73 years-old Male ff up acute cough with fever COMPARISON: Chest radiograph of same day at 8:27 AM, chest CT of same day at 11:15 AM TECHNIQUE: Portable AP view of the chest FINDINGS: Cardiomediastinal and hilar silhouettes are unchanged. Emphysema with chronic interstitial coarsening . Patchy bilateral alveolar opacities, best seen on comparison chest CT are redemonstrated. No pneumo thorax, pleural effusion or overt pulmonary edema. Calcification the thoracic aortic arch. Degenerati ve changes of the shoulders and spine. IMPRESSION: 1. Patchy bilateral alveolar opacities, better seen and described on comparison chest CT of same day redemonstrated suggestive of multifocal pneumonia. 2. Emphysema with chronic interstitial coarsening. The above report was generated using voice recognition software. It may contain grammatical, syntax o r spelling errors. Electronically signed by: Silas Mclaughlin M.D. 03/08/2019 8:20 PM
[2019-03-08 20:36] LABS: Calcium 7.4 mg/dl (8.5-10.1); Creatinine Clr Calc Pharmacy 81.5 ml/min; Est GFR (African American) 113.4; Est GFR (Non-African American) 97.9; Potassium 3.5 mmol/L (3.5-5.1)
[2019-03-08 20:56] LABS: D Dimer 750 ug/L FEU (0-500)
[2019-03-08] MEDS: BENZTROPINE MESYLATE 0.5 MG TAB PO SCH (21:52)
--- NOTE | 2019-03-08 21:58 | Critical Care Consultation ---
Date of Consultation March 08, 2019 Assessment & Plan (1) PNA (pneumonia): Impression: 1. Acute hypoxic respiratory failure secondary to pneumonia, COPD exacerbation and aspiration due to hiatal hernia. 2. COPD, and exacerbation, gold level 3, not on home O2. 3. Patient is active smoker. 4. Esophageal cancer in the preparation for esophagectomy next month. 5. Left lower lobe lesion measuring approximately 1 cm. And right upper lobe lesion appeared to be cavitated. 6. Schizophrenia. 7. Large hiatal hernia. Plan: 1. Continue broad-spectrum antibiotic, the patient is institutionalized, I will start with Vanco and Zosyn. 2. Discontinue doxycycline, this is not atypical pneumonia. 3. Add Reglan, with respect to his psych medication I will continue with Reglan to avoid pooling of secretions and gastric content in the hiatal pouch. 4. Agree with Solu-Medrol and bronchodilators. 5. Remove the BiPAP, and continue with nasal cannula as the patient tolerated very well. 6. I would use heated high flow if needed. 7. Keep the patient in 45 degrees upright position. 8. Continue GI and DVT prophylaxis. 9. Potassium replacement. 10. Gentle hydration. 11. Nicotine patch. 12. Bronchodilators. 13. Discussed with the staff and with Dr. Aguilar, appreciate all inputs. Critical care time spent with the patient was 60 minutes. History of Present Illness Reason for Consultation: Acute respiratory failure Requesting Physician: Dr. Aguilar Attending Physician: Alfa Aguilar MD History of Present Illness Dear Dr. Aguilar: Thank you for the kind referral of Mrs. Bailey to critical care service. This is 73-year-old gentleman with a history of esophageal CA, recurrent pneumonia, active smoker, COPD, schizophrenia, history of GI bleeding as well, presented to the hospital with fever, shortness of breath or hypoxia, the patient is a poor historian and could not give any information to me as I was talking to him. Due to his psych issues. The patient apparently is known to have hiatal hernia, he does have also history of COPD and he is active smoker. Noted in the notes that the patient his presentation noted to have temperature of 102, also saturation 80% on room air, he did have lactic acidosis and he met the criteria for sepsis. Patient started empirically on Zosyn IV fluids and vancomycin. Due to the findings of COPD on the CAT scan he was started also on steroids. The patient transferred to the ICU due to acute respiratory distress requiring BiPAP. When he arrived at the ICU, his O2 saturation was registered on the BiPAP at 95%, his heart rate was 150, and respiratory rate was in the 30s. After taking him off the BiPAP, his respiratory rate remains in the range of 25 O2 saturation 95% on 5 L nasal cannula. The patient appeared to be more comfortable on the nasal cannula than on the BiPAP. He could not tell me if he had the pain, he denies any shortness of breath as well, no cough no sputum production no hemoptysis, however the patient is unreliable. Allergies Allergy/AdvReac Type Severity Reaction Status Date / Time buspirone Allergy Unknown Verified 03/08/19 08:32 clonazepam Allergy Unknown unknown Verified 03/08/19 08:32 clozapine Allergy Unknown Verified 03/08/19 08:32 Home Medications Home Medications Medication Instructions Recorded Confirmed Type Dairy Relief 9,000 unit PO QID 09/09/18 03/08/19 History acetaminophen [Acetaminophen Extra 1,000 mg PO Q8H PRN 09/09/18 03/08/19 History Strength] albuterol sulfate [Ventolin HFA] 2 puff INHALATION QID PRN 09/09/18 03/08/19 History calcium carbonate [Calcium Antacid] 200 - 400 mg PO DAILY 09/09/18 03/08/19 History guaifenesin [Mucinex] 600 mg PO BID PRN 09/09/18 03/08/19 History metoprolol succinate 25 mg PO QAM 09/09/18 03/08/19 History omeprazole 40 mg PO QAM 09/09/18 03/08/19 History quetiapine 400 mg PO QPM 09/09/18 03/08/19 History ranitidine HCl 150 mg PO BID 09/09/18 03/08/19 History trazodone 100 mg PO HS 09/09/18 03/08/19 History Preparation H 1 applic [place] TID PRN 10/16/18 03/08/19 History ipratropium bromide 0.5 mg NEB Q6R PRN #75 ml 10/19/18 03/08/19 Rx potassium chloride 10 meq PO BID 10/28/18 03/08/19 History Reguloid 1 tsp PO DAILY PRN 01/06/19 03/08/19 History alum-mag hydroxide-simeth [Rulox] 10 ml PO Q4H PRN 01/06/19 03/08/19 History diphenhydramine HCl [Banophen] 25 mg PO HS PRN 01/06/19 03/08/19 History polyethylene glycol 3350 [Miralax] 17 gm PO DAILY PRN 01/22/19 03/08/19 History benztropine 0.5 mg PO BID 02/11/19 03/08/19 History divalproex 250 mg PO BID 02/11/19 03/08/19 History risperidone 2 mg PO BID 02/11/19 03/08/19 History magnesium oxide 400 mg PO QAM 30 Days #30 tab 02/17/19 03/08/19 Rx nicotine [Nicoderm CQ] 7 mg TRANSDERMAL QAM 30 Days #30 ea 02/17/19 03/08/19 Rx Patient History Medical History Esophageal cancer (Acute) History of esophageal cancer (Chronic) 11/20/18 EGD: Nodular ulcerated lesion. EUS: Mass lower third esophagus. Biopsies positive for adenocarcinoma. Paranoid schizophrenia (Chronic) COPD (chronic obstructive pulmonary disease) (Chronic) HTN (hypertension) (Chronic) GERD (gastroesophageal reflux disease) (Chronic) Tobacco abuse (Chronic) Kevin esophagus (Chronic) GI bleed Sepsis Surgical History History of esophagogastroduodenoscopy (EGD) (Chronic) History of skin graft (Chronic) as child History of bowel resection (Chronic) "for diverticulitis " in 2010 Family History Mother Stroke Thyroid disorder Father Heart attack Other Heart disease Social History Preferred Language: Ivorian Communication Ability: confusion Visual Impairment: No Limitations 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 Beliefs That Will Affect Care: Sabianist Sabianist Beliefs: Caodaism Current Living Situation: Personal Care Facility Current Living Situation Comment: lives at [facility] Other Information That Helps Us Care for You: No Feels Safe at Home: Yes Safety Concerns: Feels Safe At This Time Smoking Status: Former smoker Tobacco Type: cigarettes Cigarettes Per Day: 20 Do You Dip or Chew Tobacco: No Smoking End Date: Nov 2018 Second Hand Exposure: No Tobacco Cessation Education Requested by Patient: No Hx Alcohol Use: No Hx Substance Use: No Review of Systems Review of Systems: Review of system is difficult to obtain this patient who is schizophrenic and not reliable in giving a history. Physical Exam Physical Exam: Vital signs remained stable except for the fever, blood pressure is being maintained, heart rate is 130. Normal sinus rhythm. No JVD. S1-S2, tachycardic, distant breath sounds bilaterally, hyperinflated lungs, abdomen is scaphoid and benign, no edema, cachexia noted. No skin rash, the patient is edentulous. Neurologically difficult to assess but does not appear to be focal. Results & Data Vital Signs (Past 12 Hours) Vital Signs Temp Pulse Pulse Resp BP BP BP 03/08/19 21:05 138 H 32 H 03/08/19 19:58 37.0 C 131 H 24 91/60 L 03/08/19 19:28 137 H 32 H 03/08/19 18:08 158 H 03/08/19 15:20 37.9 C H 123 H 25 H 114/75 03/08/19 11:52 110 H 03/08/19 11:46 37.2 C 113 H 23 88/59 L 03/08/19 11:00 121 H 25 H 102/78 03/08/19 10:46 120 H 23 96/73 L 03/08/19 10:43 124 H 23 111/83 03/08/19 10:20 126 H 21 117/87 03/08/19 10:08 123 H 21 97/75 L 03/08/19 09:57 37.9 C H Pulse Ox 03/08/19 21:05 98 03/08/19 19:58 100 03/08/19 19:28 94 03/08/19 18:08 03/08/19 15:20 91 03/08/19 11:52 03/08/19 11:46 95 03/08/19 11:00 97 03/08/19 10:46 93 03/08/19 10:43 03/08/19 10:20 03/08/19 10:08 94 03/08/19 09:57 Laboratory Results Labs showed leukocytosis, stable hematocrit, BMP is within acceptable limits. Procalcitonin is slightly elevated. Diagnostic Findings CAT scan of the chest which I reviewed myself showed large hiatal hernia, significant emphysematous changes, bilateral multiple infiltrates, one cavitary lesion in the right upper lobe as well. Elliptical shape trachea. (1) PNA (pneumonia) Pneumonia type: due to unspecified organism Laterality: bilateral Lung location: unspecified part of lung Qualified Code(s): J18.9 - Pneumonia, unspecified organism
[2019-03-08] MEDS: METOCLOPRAMIDE HCL INJ 5 MG/ML 2 ML VIAL IV SCH (23:12)
[2019-03-09] MEDS: LEVALBUTEROL HCL 0.63 MG/3 ML NEB NEB SCH ×4 (01:56→20:22)
[2019-03-09] MEDS ORDERED: VANCOMYCIN HCL 1,000 MG in SODIUM CHLORIDE 0.9% 250 ML IV SCH (02:00)
[2019-03-09] MEDS: methylPREDNISolone 40 MG in SYRINGE 0 ML IV SCH ×4 (02:05→21:20)
[2019-03-09] MEDS: SODIUM CHLORIDE 0.9% 1000ML 1,000 ML IV SCH ×3 (03:23→16:51)
[2019-03-09] MEDS: METOCLOPRAMIDE HCL INJ 5 MG/ML 2 ML VIAL IV SCH ×4 (04:12→21:21)
[2019-03-09] MEDS ORDERED: SODIUM CHLORIDE 0.9% 500 ML IV ONE (04:19)
[2019-03-09 04:51] LABS: Allen Test Pos (Pos); HCO3 ABG 20 mmol/L (19-24); Oxygen Saturation ABG 95.9 % (90-95); PCO2 ABG 30 mmHg (35-46); PO2 ABG 94 mm/Hg (80-95); pH ABG 7.45 (7.35-7.45)
[2019-03-09 05:08] LABS: Alanine Aminotransferase 12 U/L (12-78); Albumin Level 2.2 gm/dl (3.4-5.0); Aspartate Aminotransferase 22 U/L (15-37); BUN Creatinine Ratio 43.1 (10-20); Bilirubin Direct < 0.1 mg/dl (0-0.2); Blood Urea Nitrogen 21 mg/dl (7-18); Calcium 7.5 mg/dl (8.5-10.1); Carbon Dioxide 23 mmol/L (21-32); Chloride 103 mmol/L (98-107); Creatinine Clr Calc Pharmacy 110.4 ml/min; Est GFR (African American) 128.5; Est GFR (Non-African American) 110.9; Glucose 117 mg/dl (70-99); Magnesium 1.6 mg/dl (1.8-2.4); Potassium 3.6 mmol/L (3.5-5.1); Sodium 131 mmol/L (136-145)
[2019-03-09 05:13] LABS: Basophils # (auto) 0.01 K/uL (0-0.2); Dohle Bodies Occasional; Hematocrit (blood only) 22.4 % (42-52); Hemoglobin 7.5 g/dL (14.0-18.0); Hypochromasia Present; Immature Granulocytes # (auto) 0.29 K/uL (0.00-0.02); Immature Granulocytes % (auto) 1.3 %; Lymphocytes # (auto) 1.15 K/uL (1.2-3.4); Lymphocytes % (auto) 5.2 %; Mean Corpuscular Hgb Conc 33.5 g/dL (32-36); Mean Platelet Volume 8.8 fL (7.4-10.4); Monocytes # (auto) 0.83 K/uL (0.11-0.59); Monocytes % (auto) 3.7 %; Neutrophils # (auto) 19.91 K/uL (1.4-6.5); Neutrophils % (auto) 89.8 %; Platelet Count 337 K/uL (130-400); RDW Coefficient of Variation 16.8 % (11.5-14.5); RDW Standard Deviation 47.3 fL (36.4-46.3); Red Blood Count 2.91 M/uL (4.7-6.1); Toxic Granulation 1+; Toxic Vacuolation Occasional; White Blood Count 22.19 K/uL (4.8-10.8)
[2019-03-09 05:20] LABS: Alkaline Phosphatase 64 U/L (45-117); Bilirubin,Total 0.2 mg/dl (0.2-1); Total Protein 5.6 gm/dl (6.4-8.2)
[2019-03-09] MEDS ORDERED: methylPREDNISolone 40 MG in SYRINGE 0 ML IV SCH (05:30)
[2019-03-09] MEDS: MAGNESIUM SULFATE / D5W 1 GM/100 ML BAG IV SCH ×2 (05:37→06:42)
[2019-03-09] MEDS: PIPERACILLIN/TAZOBACTAM 3.375 GM in DEXTROSE 5% 100 ML IV SCH ×3 (06:16→21:22)
[2019-03-09] MEDS: ACETYLCYSTEINE 10% INHAL SOLN **DISPENSED FROM RESP. INH SCH (06:58)
[2019-03-09 07:53] LABS: Hematocrit (blood only) 22.6 % (42-52); Hemoglobin 7.5 g/dL (14.0-18.0)
[2019-03-09] MEDS ORDERED: SODIUM CHLORIDE 0.9% 1000ML 1,000 ML IV ONE ×2 (08:10→09:54)
[2019-03-09] MEDS: POTASSIUM CHLORIDE 10 MEQ TABCR PO SCH ×2 (09:32→21:19)
[2019-03-09] MEDS: NICOTINE 7 MG/24 HR TDSY TD SCH (09:32)
[2019-03-09] MEDS: BENZTROPINE MESYLATE 0.5 MG TAB PO SCH ×2 (09:32→21:14)
[2019-03-09] MEDS: DIVALPROEX DELAY RELEASE 250 MG TABEC PO SCH ×2 (09:32→21:15)
[2019-03-09] MEDS: MAGNESIUM OXIDE 400 MG TAB PO SCH (09:32)
[2019-03-09] MEDS: risperiDONE 2 MG TABLET PO SCH ×2 (09:32→21:19)
[2019-03-09] MEDS: PANTOprazole 40 MG TAB PO SCH (09:32)
[2019-03-09] MEDS: METOPROLOL SUCC 25MG EXT REL TAB PO SCH (09:33)
--- NOTE | 2019-03-09 10:41 | Critical Care Progress Note ---
Date of Service March 09, 2019 Assessment & Plan (1) Multifocal pneumonia: Neuro- awake but slightly confused likely metabolic encephalopathy. schizophrenia CV- hypotension responding to fluids. likely hypovolumic. if does not respond to fluids may need central line and vasopressor support Pulmonary- acute hypoxic respiratory failure due to pneumonia vs pneumonitis. likely aspiration. now say 89% on RA. COPD no current wheezing on levalbuterol and steroids ID- pneumonia on piperacillin-tazobactam. follow cultures Renal- cr ok . hyponatremia hypovolemia vs SIADH GI- diarrhea x few weeks per pt. if continues may need to check c diff. recurrent aspiration. esophageal CA Heme- anemia. no clear source bleeding. follow hgb Endocrine- blood sugars controlled Dispo- continue ICU care for hemodynamic support I have personally spent 45 minutes of critical care time in the direct management of this patient. This is a life/limb threatening event. This includes time spent evaluating patient, direct bedside care, chart review, placing orders, interpretation of diagnostic studies, discussion with consultants, patient, and/or family members regarding treatment decisions, as well as other required patient management activities. This time is exclusive of all separately billable procedures, and teaching time and separate from and in addition to any other critical care service time. Subjective breathing improving complains of diarrhea he has had for a few weeks. says he takes Imodium as outpatient which helps Physical Exam Physical Exam: Constitutional: Comfortable NAD. cachectic HEENT: normocephalic atraumatic. MMM. no cervical lymphadenopathy CV: RRR nl s1,s2 no murmurs rubs or gallops Lungs: crackles bilaterally. no accessory muscle use Abd: soft nontender nondistended. normal bowel sounds Ext: no edema. no cyanosis, no clubbing Skin: warm dry Neuro: alert oriented to name and hospital. moving all extremities Psych: flat affect Results & Data Vital Signs (Past 12 Hours) Vital Signs Temp Pulse Pulse Resp BP Pulse Ox 03/09/19 09:00 88 22 70/47 L 94 03/09/19 08:01 36.7 C 88 22 68/44 L 92 03/09/19 07:00 89 21 81/57 L 100 03/09/19 06:59 90 18 98 03/09/19 06:01 90 24 65/46 L 100 03/09/19 06:00 85 23 100 03/09/19 05:00 101 H 24 94/74 L 100 03/09/19 04:01 96 H 25 H 67/50 L 97 03/09/19 04:00 37 C 97 H 25 H 97 03/09/19 03:00 103 H 26 H 72/48 L 90 03/09/19 02:28 106 H 22 77/63 L 99 03/09/19 02:00 100 H 23 68/48 L 100 03/09/19 01:56 101 H 22 100 03/09/19 01:01 105 H 27 H 63/46 L 89 L 03/09/19 01:00 113 H 24 95 03/09/19 00:02 129 H 29 H 96 03/09/19 00:01 135 H 34 H 105/43 L 95 03/09/19 00:00 139 H 18 95 03/08/19 23:02 117 H 31 H 93 03/08/19 23:01 120 H 29 H 82/62 L 94 03/08/19 23:00 121 H 29 H 94 Laboratory Results Laboratory Results - last 24 hr 03/08/19 03/08/19 03/08/19 11:30 12:02 12:02 WBC RBC Hgb Hct MCV MCH MCHC RDW Std Deviation RDW Coeff of Imgel Plt Count MPV Immature Gran % (Auto) Neut % (Auto) Lymph % (Auto) [place] % (Auto) Eos % (Auto) Baso % (Auto) Immature Gran # (Auto) Neut # (Auto) Lymph # (Auto) [place] # (Auto) Eos # (Auto) Baso # (Auto) Toxic Granulation Toxic Vacuolation Dohle Bodies Hypochromasia D-Dimer ABG pH ABG pCO2 ABG pO2 ABG HCO3 ABG O2 Saturation ABG Base Excess Ra Test Barometric Pressure Oxygen Given Sodium Potassium Chloride Carbon Dioxide Anion Gap BUN Creatinine Est Cr Clr Drug Dosing Est GFR ( Amer) Est GFR (Non-Af Amer) BUN/Creatinine Ratio Glucose Osmolality Lactate 1.4 Calcium Magnesium Total Bilirubin Direct Bilirubin AST ALT Alkaline Phosphatase Total Protein Albumin Nasal Screen MRSA (PCR) Negative Valproic Acid 26 L Blood Type Antibody Screen 03/08/19 03/08/19 03/08/19 17:48 19:59 19:59 WBC RBC Hgb Hct MCV MCH MCHC RDW Std Deviation RDW Coeff of Migel Plt Count MPV Immature Gran % (Auto) Neut % (Auto) Lymph % (Auto) [place] % (Auto) Eos % (Auto) Baso % (Auto) Immature Gran # (Auto) Neut # (Auto) Lymph # (Auto) [place] # (Auto) Eos # (Auto) Baso # (Auto) Toxic Granulation Toxic Vacuolation Dohle Bodies Hypochromasia D-Dimer ABG pH 7.47 H ABG pCO2 30 L ABG pO2 96 H ABG HCO3 21 ABG O2 Saturation 97.0 H ABG Base Excess -2.5 Ra Test Pos Barometric Pressure 736.4 Oxygen Given 40% Sodium 130 L Potassium Chloride Carbon Dioxide Anion Gap BUN Creatinine Est Cr Clr Drug Dosing Est GFR ( Amer) Est GFR (Non-Af Amer) BUN/Creatinine Ratio Glucose Osmolality 273 L Lactate Calcium Magnesium Total Bilirubin Direct Bilirubin AST ALT Alkaline Phosphatase Total Protein Albumin Nasal Screen MRSA (PCR) Valproic Acid Blood Type Antibody Screen 03/08/19 03/08/19 03/09/19 20:00 20:27 04:31 WBC RBC Hgb Hct MCV MCH MCHC RDW Std Deviation RDW Coeff of Migel Plt Count MPV Immature Gran % (Auto) Neut % (Auto) Lymph % (Auto) [place] % (Auto) Eos % (Auto) Baso % (Auto) Immature Gran # (Auto) Neut # (Auto) Lymph # (Auto) [place] # (Auto) Eos # (Auto) Baso # (Auto) Toxic Granulation Toxic Vacuolation Dohle Bodies Hypochromasia D-Dimer 750 H* ABG pH ABG pCO2 ABG pO2 ABG HCO3 ABG O2 Saturation ABG Base Excess Ra Test Barometric Pressure Oxygen Given Sodium 131 L 131 L Potassium 3.5 D 3.6 Chloride 98 103 Carbon Dioxide 22 23 Anion Gap 11.0 5.0 BUN 15 D 21 H Creatinine 0.65 0.48 L Est Cr Clr Drug Dosing 81.5 110.4 Est GFR ( Amer) 113.4 128.5 Est GFR (Non-Af Amer) 97.9 110.9 BUN/Creatinine Ratio 24.0 H 43.1 H Glucose 116 H 117 H Osmolality Lactate Calcium 7.4 L D 7.5 L Magnesium 1.6 L Total Bilirubin 0.2 Direct Bilirubin < 0.1 AST 22 ALT 12 Alkaline Phosphatase 64 Total Protein 5.6 L D Albumin 2.2 L Nasal Screen MRSA (PCR) Valproic Acid Blood Type Antibody Screen 03/09/19 03/09/19 03/09/19 04:34 04:34 04:40 WBC 22.19 H RBC 2.91 L Hgb 7.5 L Hct 22.4 L MCV 77.0 L MCH 25.8 MCHC 33.5 RDW Std Deviation 47.3 H RDW Coeff of Migel 16.8 H Plt Count 337 MPV 8.8 Immature Gran % (Auto) 1.3 Neut % (Auto) 89.8 Lymph % (Auto) 5.2 [place] % (Auto) 3.7 Eos % (Auto) 0.0 Baso % (Auto) 0.0 Immature Gran # (Auto) 0.29 H Neut # (Auto) 19.91 H Lymph # (Auto) 1.15 L [place] # (Auto) 0.83 H Eos # (Auto) 0.00 Baso # (Auto) 0.01 Toxic Granulation 1+ Toxic Vacuolation Occasional Dohle Bodies Occasional Hypochromasia Present D-Dimer ABG pH 7.45 ABG pCO2 30 L ABG pO2 94 ABG HCO3 20 ABG O2 Saturation 95.9 H ABG Base Excess -3.5 Ra Test Pos Barometric Pressure Oxygen Given 5L Sodium Potassium Chloride Carbon Dioxide Anion Gap BUN Creatinine Est Cr Clr Drug Dosing Est GFR ( Amer) Est GFR (Non-Af Amer) BUN/Creatinine Ratio Glucose Osmolality Lactate 0.8 Calcium Magnesium Total Bilirubin Direct Bilirubin AST ALT Alkaline Phosphatase Total Protein Albumin Nasal Screen MRSA (PCR) Valproic Acid Blood Type Antibody Screen 03/09/19 03/09/19 07:46 07:46 WBC RBC Hgb 7.5 L Hct 22.6 L MCV MCH MCHC RDW Std Deviation RDW Coeff of Migel Plt Count MPV Immature Gran % (Auto) Neut % (Auto) Lymph % (Auto) [place] % (Auto) Eos % (Auto) Baso % (Auto) Immature Gran # (Auto) Neut # (Auto) Lymph # (Auto) [place] # (Auto) Eos # (Auto) Baso # (Auto) Toxic Granulation Toxic Vacuolation Dohle Bodies Hypochromasia D-Dimer ABG pH ABG pCO2 ABG pO2 ABG HCO3 ABG O2 Saturation ABG Base Excess Ra Test Barometric Pressure Oxygen Given Sodium Potassium Chloride Carbon Dioxide Anion Gap BUN Creatinine Est Cr Clr Drug Dosing Est GFR ( Amer) Est GFR (Non-Af Amer) BUN/Creatinine Ratio Glucose Osmolality Lactate Calcium Magnesium Total Bilirubin Direct Bilirubin AST ALT Alkaline Phosphatase Total Protein Albumin Nasal Screen MRSA (PCR) Valproic Acid Blood Type A Negative Antibody Screen NEGATIVE
[2019-03-09 13:09] LABS: Hematocrit (blood only) 21.2 % (42-52); Hemoglobin 7.3 g/dL (14.0-18.0); Mean Corpuscular Hgb Conc 34.4 g/dL (32-36); Mean Corpuscular Volume 77.7 fL (80-100); Mean Platelet Volume 9.1 fL (7.4-10.4); Platelet Count 312 K/uL (130-400); RDW Coefficient of Variation 16.8 % (11.5-14.5); RDW Standard Deviation 47.9 fL (36.4-46.3); Red Blood Count 2.73 M/uL (4.7-6.1); White Blood Count 19.82 K/uL (4.8-10.8)
--- NOTE | 2019-03-09 13:19 | Hospitalist Progress Note ---
Date of Service March 09, 2019 Assessment & Plan (1) Sepsis: Presented with sepsis likely secondary to pneumonia (2) Multifocal pneumonia: Possible healthcare associated pneumonia VS aspiration pneumonia COPD exacerbation, smoker Has been on intravenous Zosyn ,vancomycin and doxycycline Blood cultures-pending Sputum cultures-not collected Nasal MRSA swab-negative Solu-Medrol 40 mg every 8 hours and nebulized bronchodilators We will not get speech evaluation again Has chronic aspiration and the patient wants to eat orally Encephalopathy secondary to above Mental status appears to be back to baseline CT head negative for acute process Mental status has been improving Hyponatremia Likely hypovolemic Possible component of SIADH secondary to pneumonia Gentle IV fluids Sodium level is 131 on 02/10 Hypertension Reduce metoprolol to half his usual dose to prevent hypotension Esophageal cancer GERD History of upper GI bleed but none at this moment Hemoglobin stable Follow-up with GI Continue PPI PPI Abnormal CT findings per previous admission: There is a 9 mm spiculated appearing nodule in the left lower lobe. This is pathologically indeterminant but concerning for neoplasm. A 2-3 month follow-up examination is recommended in follow-up. 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 Schizophrenia Continue usual medications DVT prophylaxis SCDs for now in light of recent upper GI bleed, esophageal cancer Disposition Lives in [facility] facility Has no family members and or POA He remains for full code as of now Subjective 03/09 The patient was seen and examined in ICU 73-year-old male with history of COPD, smoker, hypertension, recently diagnosed esophageal cancer, upper GI bleed, schizophrenia, presenting with confusion. Patient was recently admitted to [facility] for sepsis secondary to pneumonia. He was discharged on February 17, 2019. The patient was brought back to the emergency room for shortness of breath and cough. At present the patient was febrile at 40 F and hypoxic at 80%.Lactic acid and procalcitonin elevated. Complains to have some shortness of breath and weakness Denies any chest pain no palpitation, any abdominal pain nausea and vomiting Review of Systems Review of Systems: All systems reviewed and are unremarkable except as noted below Respiratory: + cough, + dyspnea, + dyspnea on exertion, + sputum production and + wheezing Neurologic: + generalized weakness Physical Exam Physical Exam: Minimal shortness of breath at rest Constitutional: + ill appearing Eyes: PERRL, conjunctivae normal, anicteric sclerae ENMT: external ear and nose normal, oropharynx normal Neck: trachea midline, no thyromegaly Respiratory: + respiratory distress, + labored breathing and + uses accessory muscles Auscultation: + diminished lung sounds and + wheezes Cardiovascular: Rate/Rhythm: regular rate and regular rhythm Heart Sounds: normal S1 and normal S2 Gastrointestinal (Abdomen): Inspection/Auscultation: abdomen normal to inspection and normal bowel sounds Percussion/Palpation: abdomen soft; abdomen nontender Musculoskeletal: No acute arthritis in any joints Neurologic: Alert, awake and oriented x3 generally weak. Results & Data Vital Signs (Past 12 Hours) Vital Signs Temp Pulse Pulse Resp BP Pulse Ox 03/09/19 12:00 98 H 22 97/72 L 100 03/09/19 11:12 116 H 22 90/68 L 91 03/09/19 10:01 101 H 22 86/62 L 90 03/09/19 09:53 115 H 23 96/59 L 92 03/09/19 09:22 93 H 25 H 71/47 L 93 03/09/19 09:10 89 23 75/47 L 93 03/09/19 09:00 88 22 70/47 L 94 03/09/19 08:01 36.7 C 88 22 68/44 L 92 03/09/19 07:00 89 21 81/57 L 100 03/09/19 06:59 90 18 98 03/09/19 06:01 90 24 65/46 L 100 03/09/19 06:00 85 23 100 03/09/19 05:00 101 H 24 94/74 L 100 03/09/19 04:01 96 H 25 H 67/50 L 97 03/09/19 04:00 37 C 97 H 25 H 97 03/09/19 03:00 103 H 26 H 72/48 L 90 03/09/19 02:28 106 H 22 77/63 L 99 03/09/19 02:00 100 H 23 68/48 L 100 03/09/19 01:56 101 H 22 100 Laboratory Results Short CBC 03/09/19 03/09/19 03/09/19 Range/Units 04:40 07:46 12:48 WBC 22.19 H 19.82 H (4.8-10.8) K/uL Hgb 7.5 L 7.5 L 7.3 L (14.0-18.0) g/dL Hct 22.4 L 22.6 L 21.2 L (42-52) % Plt Count 337 312 (130-400) K/uL BMP 03/08/19 03/08/19 03/09/19 17:48 20:00 04:31 Sodium 130 L 131 L 131 L Potassium 3.5 D 3.6 Chloride 98 103 Carbon Dioxide 22 23 BUN 15 D 21 H Creatinine 0.65 0.48 L Glucose 116 H 117 H Calcium 7.4 L D 7.5 L Liver Function 03/09/19 Range/Units 04:31 Total Bilirubin 0.2 (0.2-1) mg/dl Direct Bilirubin < 0.1 (0-0.2) mg/dl AST 22 (15-37) U/L ALT 12 (12-78) U/L Alkaline Phosphatase 64 (45-117) U/L Albumin 2.2 L (3.4-5.0) gm/dl Diagnostic Findings CT chest: 1. Motion degraded exam. 2. Patchy multifocal consolidative and groundglass opacities within all lobes bilaterally suggests multifocal pneumonia. 3. Emphysema with bilateral bronchial wall thickening and mild bibasilar mucous plugging. 4. Trace left pleural effusion. 5. 9 mm solid nodule of the left lower lobe appears unchanged. 3 month follow-up chest CT recommended. 6. Large hiatal hernia. Please refer to below summary of Fleischner criteria recommendations for follow- up of incidental CT nodules (Teressa Acharya, Guidelines for management of small pulmonary nodules detected on CT scans: A statement from the Fleischner Society, Radiology 237: [phone].) Medications Administered Current Inpatient Medications Acetaminophen (Tylenol) 650 mg PO Q4H PRN PRN Reason: Pain or Fever Stop: 04/07/19 11:36 Benztropine Mesylate (Cogentin) 0.5 mg PO BID [facility] Stop: 04/07/19 20:59 Last Admin: 03/09/19 09:32 Dose: 0.5 mg Documented by: Divalproex Sodium (Depakote Delay Release) 250 mg PO BID [facility] Stop: 04/07/19 11:36 Last Admin: 03/09/19 09:32 Dose: 250 mg Documented by: Sodium Chloride (Nss 1000ml) 1,000 mls @ 125 mls/hr IV .Q8H [facility] Stop: 04/07/19 11:36 Last Admin: 03/09/19 11:29 Dose: 125 mls/hr Documented by: Piperacillin Sod/Tazobactam (Sod 3.375 gm/ Dextrose) 115 mls @ 28.75 mls/hr IV Q8H [facility]; Protocol Stop: 03/15/19 13:59 Last Infusion: 03/09/19 10:18 Dose: Infused Documented by: Methylprednisolone 40 mg/ (Syringe) 0.64 mls @ 1.5 mls/min IV Q8H [facility] Stop: 04/07/19 17:59 Last Admin: 03/09/19 06:10 Dose: 1.5 mls/min Documented by: Levalbuterol HCl (Xopenex 0.63 Mg/3 Ml Neb) 0.63 mg NEB Q6R [facility] Stop: 04/07/19 19:59 Last Admin: 03/09/19 06:58 Dose: 0.63 mg Documented by: [facility]esium Ox[facility] (Mag-Ox) [facility] [place]: 04/08/19 08:59 Last Admin: 03/09/19 09:32 Dose: 400 mg Documented by: Metoclopramide HCl (Reglan) 10 mg IV Q6H [facility] Stop: 04/07/19 21:59 Last Admin: 03/09/19 09:32 Dose: 10 mg Documented by: Metoprolol Succinate (Toprol Xl) 12.5 [facility] [place]: 04/08/19 08:59 Last Admin: 03/09/19 09:33 Dose: Not Given Documented by: Miscellaneous (Remove Nicoderm Patch) 1 ea N/A HS [facility] Stop: 04/07/19 20:59 Last Admin: 03/08/19 23:10 Dose: Not Given Documented by: Miscellaneous Information (Consult) 1 ea N/A UD PRN PRN Reason: Consult Stop: 04/07/19 10:20 Nicotine (Nicoderm Cq) 7 [facility] [place] [facility] [place] 04/07/19 11:36 Last Admin: 03/09/19 09:32 Dose: 7 mg Documented by: Pantoprazole Sodium (Protonix) 40 [facility] [place]: 04/07/19 11:59 Last Admin: 03/09/19 09:32 Dose: 40 mg Documented by: Potassium Chloride (Klor-Con M10) 10 meq PO BID [facility] Stop: 04/07/19 11:36 Last Admin: 03/09/19 09:32 Dose: 10 meq Documented by: Ranitidine HCl (Zantac) 150 mg PO BID [facility] Stop: 04/07/19 20:59 Last Admin: 03/09/19 09:32 Dose: 150 mg Documented by: Risperidone (Risperdal) 2 mg PO BID [facility] Stop: 04/07/19 11:36 Last Admin: 03/09/19 09:32 Dose: 2 mg Documented by:
[2019-03-09] MEDS ORDERED: ICU PROTOCOL FOR HYPERGLYCEMIA PRN (14:20)
[2019-03-09] MEDS ORDERED: PHARMACY GLYCEMIC MGMT CONSULT PRN (16:43)
[2019-03-09] MEDS: QUETIAPINE FUMARATE 200 MG TAB PO SCH (16:50)
[2019-03-09] MEDS ORDERED: INSULIN GLARGINE SOLOSTAR 100 UNITS/ML 3 ML PEN SC SCH (21:00)
[2019-03-09] MEDS: INSULIN ASPART 100 UNITS/ML 3 ML PEN SC SCH (21:18)
--- OUTSIDE RECORDS SUMMARY | 2019-03-09 22:42 | External Medical Summary | Continuity of Care Document ---
:1945 Author Name Surinder Conteh Address Unavailable Unavailable , Care Team Providers Name Role Phone [facility] MAndres Unavailable [email or web address], [email or web address] Unavailable Unavailable Problems Active medical history not documented Allergies and Adverse Reactions Allergy history not documented Medications Medications not documented Procedures Procedures not documented Immunizations Immunizations not documented Plan of Treatment Planned Observations Planned Goals not documented Results No Known Results Results not documented
[2019-03-10] MEDS: SODIUM CHLORIDE 0.9% 1000ML 1,000 ML IV SCH ×3 (00:47→21:08)
[2019-03-10] MEDS: MoRPHine SULFATE 2 MG/ML CARP IV PRN ×3 (01:38→13:00)
[2019-03-10] MEDS: LEVALBUTEROL HCL 0.63 MG/3 ML NEB NEB SCH ×4 (02:13→19:44)
[2019-03-10] MEDS ORDERED: MoRPHine SULFATE 2 MG/ML CARP IV STA (03:18)
[2019-03-10] MEDS: METOCLOPRAMIDE HCL INJ 5 MG/ML 2 ML VIAL IV SCH ×4 (04:15→22:45)
[2019-03-10 05:06] LABS: BUN Creatinine Ratio 35.1 (10-20); Calcium 7.5 mg/dl (8.5-10.1); Creatinine Clr Calc Pharmacy 85.6 ml/min; Est GFR (African American) 118.9; Est GFR (Non-African American) 102.6; Phosphorus 2.5 mg/dl (2.5-4.9); Potassium 3.9 mmol/L (3.5-5.1)
[2019-03-10 05:09] LABS: Hematocrit (blood only) 19.7 % (42-52); Hemoglobin 6.7 g/dL (14.0-18.0); Mean Corpuscular Volume 77.6 fL (80-100); Mean Platelet Volume 9.3 fL (7.4-10.4); Platelet Count 316 K/uL (130-400); RDW Coefficient of Variation 16.9 % (11.5-14.5); RDW Standard Deviation 48.5 fL (36.4-46.3); Red Blood Count 2.54 M/uL (4.7-6.1); White Blood Count 17.15 K/uL (4.8-10.8)
[2019-03-10] MEDS ORDERED: ACETAMINOPHEN 325 MG TAB PO STA (05:29)
[2019-03-10] MEDS ORDERED: SODIUM CHLORIDE 0.9% 250 ML IV PRN (05:29)
[2019-03-10 05:45] LABS: Basophils # (auto) 0.02 K/uL (0-0.2); Basophils % (auto) 0.1 %; Echinocytes 1+; Hypochromasia Present; Immature Granulocytes # (auto) 0.48 K/uL (0.00-0.02); Immature Granulocytes % (auto) 2.8 %; Lymphocytes # (auto) 0.95 K/uL (1.2-3.4); Lymphocytes % (auto) 5.5 %; Monocytes # (auto) 0.84 K/uL (0.11-0.59); Monocytes % (auto) 4.9 %; Neutrophils # (auto) 14.86 K/uL (1.4-6.5); Neutrophils % (auto) 86.7 %; Ovalocytes 1+
[2019-03-10] MEDS: methylPREDNISolone 40 MG in SYRINGE 0 ML IV SCH (06:24)
[2019-03-10] MEDS: PIPERACILLIN/TAZOBACTAM 3.375 GM in DEXTROSE 5% 100 ML IV SCH ×3 (06:24→22:43)
[2019-03-10] MEDS ORDERED: FUROSEMIDE 20 MG in SYRINGE 0 ML IV ONE (08:00)
--- NOTE | 2019-03-10 08:04 | Critical Care Progress Note ---
Date of Service March 10, 2019 Assessment & Plan (1) Multifocal pneumonia: Neuro- awake but slightly confused likely metabolic encephalopathy. schizophrenia CV- hypotension responding to fluids. now BP better. HD stable Pulmonary- acute hypoxic respiratory failure due to pneumonia vs pneumonitis. likely aspiration. more sob overnight now improved on bipap. COPD no current wheezing on levalbuterol and steroids(taper to daily ID- pneumonia on piperacillin-tazobactam. follow cultures Renal- cr ok . hyponatremia hypovolemia vs SIADH GI- recurrent aspiration. esophageal CA with plan for eventual esophagectomy Heme- anemia. no clear source bleeding. follow hgb. transfuse if hgb <7 Endocrine- blood sugars high. will see how they are with decreased steroids Dispo- continue ICU care for hemodynamic support I have personally spent 45 minutes of critical care time in the direct management of this patient. This is a life/limb threatening event. This includes time spent evaluating patient, direct bedside care, chart review, placing orders, interpretation of diagnostic studies, discussion with consultants, patient, and/or family members regarding treatment decisions, as well as other required patient management activities. This time is exclusive of all separately billable procedures, and teaching time and separate from and in addition to any other critical care service time. Subjective overnight more short of breath which improved with bipap and morphine. this morning his breathing has improved his blood pressure was better overnight Physical Exam Physical Exam: Constitutional: Comfortable NAD on bipap HEENT: normocephalic atraumatic. CV: RRR nl s1,s2 no murmurs rubs or gallops Lungs: decreased bilaterally with some crackles. no accessory muscle use Abd: soft nontender nondistended. normal bowel sounds Ext: no edema. no cyanosis, no clubbing Skin: warm dry Neuro: alert but mildly confused. moving all extremities Psych: normal mood and affect Results & Data Vital Signs (Past 12 Hours) Vital Signs Temp Pulse Pulse Resp BP Pulse Ox 03/10/19 07:00 36.4 C L 112 H 20 122/94 96 03/10/19 06:56 118 H 20 93 03/10/19 06:45 113 H 22 112/80 93 03/10/19 06:30 36.3 C L 106 H 18 92/78 L 92 03/10/19 06:25 36.5 C 105 H 19 03/10/19 06:20 36.5 C 102 H 18 106/79 91 03/10/19 06:15 36.4 C L 112 H 18 121/84 92 03/10/19 06:10 119 H 36 H 106/77 89 L 03/10/19 06:05 112 H 20 111/78 92 03/10/19 06:02 36.4 C L 120 H 21 112/89 93 03/10/19 06:01 118 H 22 93 03/10/19 06:00 123 H 25 H 112/89 94 03/10/19 05:59 36.4 C L 121 H 25 H 115/87 93 03/10/19 05:55 112 H 20 92 03/10/19 05:50 36.4 C L 126 H 23 95 03/10/19 03:38 109 H 24 93 03/10/19 03:09 131 H 102/69 86 L 03/10/19 03:01 127 H 88 L 03/10/19 03:00 130 H 91 03/10/19 02:01 114 H 21 100/71 88 L 03/10/19 02:00 112 H 21 88 L 03/10/19 01:00 131 H 22 136/95 88 L 03/10/19 00:28 131 H 29 H 114/75 89 L 03/10/19 00:01 107 H 21 86/58 L 90 03/10/19 00:00 112 H 23 91 03/09/19 23:01 130 H 33 H 149/116 H 89 L 03/09/19 23:00 129 H 26 H 91 03/09/19 22:20 130 H 19 130/89 92 03/09/19 22:00 104 H 21 92 03/09/19 21:01 132/96 03/09/19 21:00 124 H 24 88 L 03/09/19 20:22 112 H 18 96
[2019-03-10] MEDS: NICOTINE 7 MG/24 HR TDSY TD SCH (08:32)
[2019-03-10] MEDS: INSULIN ASPART 100 UNITS/ML 3 ML PEN SC SCH ×3 (08:59→16:29)
[2019-03-10] MEDS ORDERED: INSULIN GLARGINE SOLOSTAR 100 UNITS/ML 3 ML PEN SC SCH ×2 (09:00→21:00)
--- NOTE | 2019-03-10 09:32 | Pharmacy Report ---
Pharmacy Glycemic Short Note 2 - Date of Service March 10, 2019 - Glycemic Short BSG Results (Last 24 hours): 03/09/19 03/09/19 03/09/19 11:30 16:27 21:11 Glucose POC Glucose 202 H 181 H 259 H 03/10/19 03/10/19 04:06 07:45 Glucose 195 H POC Glucose 191 H OUTPATIENT ANTIDIABETIC REGIMEN: * N/A (no prior dx of DM) * A1c = ? ASSESSMENT: * Patient admitted to ICU for hypoxemic resp failure, secondary to multifocal pna vs pneumonitis * BSGs did climb with the initiation of high dose IV steroid therapy * Steroid dose is being tapered today: Solu-medrol 40mg IV Q 8 hrs ---> 40mg IV Q 24 hrs * Fasting BSG 195 this AM with 9 units of basal insulin on board. Will give stress level 3 (high stres) Lantus dose this AM as pt has received 3 doses of Solu-Medrol in last 24 hrs and these effects on insulin resistance are likely to persist throughout the day today. Will then dose Lantus BID using a scale as insulin sensitivity is likely to change * Novolog doses were not adequate to control hyperglycemia overnight, therefore will increase the correctional and prandial insulin doses for the 1st portion of the day today before scaling back doses this evening to coincide with reduction in steroid dose. * Of note, pt is still hypoxemic this AM and has not been eating much as a result PLAN FOR INPATIENT GLYCEMIC CONTROL: * Check A1c with AM labs tomorrow * Basal insulin * Lantus 14 units SQ x 1 this AM, then BID dosing per the following scale: * 0 units if less than 120 * 6 units if 120-140 * 10 units if 141-200 * 14 units if greater than 200 * Bolus insulin * NovoLog per scale ACHS and at 0200 tonight * Goal Range: Low 110 mg/dL - High 140 mg/dL * Correction Factor: 25 mg/dL/unit until HS, then change to 35mg/dL/unit * Nutritional / Prandial insulin per carb ratio of 1 unit per 9 grams CHO consumed, then change to 1 unit per 12gm CHO PLAN FOR DISCHARGE: * to be determined
[2019-03-10] MEDS: METOPROLOL SUCC 25MG EXT REL TAB PO SCH (10:19)
[2019-03-10] MEDS: PANTOprazole 40 MG TAB PO SCH (10:20)
[2019-03-10] MEDS: risperiDONE 2 MG TABLET PO SCH ×2 (10:20→22:43)
[2019-03-10] MEDS: BENZTROPINE MESYLATE 0.5 MG TAB PO SCH ×2 (10:20→22:45)
[2019-03-10] MEDS: DIVALPROEX DELAY RELEASE 250 MG TABEC PO SCH ×2 (10:32→23:50)
--- NOTE | 2019-03-10 11:21 | Hospitalist Progress Note ---
Date of Service March 10, 2019 Assessment & Plan (1) Acute respiratory failure with hypoxia: Secondary to COPD and complicated by Multifocal pneumonia as treated below Requiring BiPAP to maintain saturation and decreased CO2 level Appreciate peripatologist input and recommendations Present on Admission?: Yes (2) Sepsis: Presented with sepsis likely secondary to pneumonia (3) Multifocal pneumonia: Possible healthcare associated pneumonia VS aspiration pneumonia COPD exacerbation, smoker Has been on intravenous Zosyn ,vancomycin and doxycycline Blood cultures-pending Sputum cultures-not collected Nasal MRSA swab-negative Solu-Medrol 40 mg every 8 hours and nebulized bronchodilators We will not get speech evaluation again Has chronic aspiration and the patient wants to eat orally Encephalopathy secondary Sepsis Mental status appears to be back to baseline CT head negative for acute process Mental status has been improving Hyponatremia Likely hypovolemic Possible component of SIADH secondary to pneumonia Gentle IV fluids Sodium level is 131 on 02/10 9 Sodium 134 on 03/10 Hypertension Reduce metoprolol to half his usual dose to prevent hypotension Esophageal cancer GERD History of upper GI bleed but none at this moment Hemoglobin stable Follow-up with GI Continue PPI PPI Abnormal CT findings per previous admission: There is a 9 mm spiculated appearing nodule in the left lower lobe. This is pathologically indeterminant but concerning for neoplasm. A 2-3 month follow-up examination is recommended in follow-up. 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 Schizophrenia Continue usual medications DVT prophylaxis SCDs for now in light of recent upper GI bleed, esophageal cancer Disposition Lives in [facility] facility Has no family members and or POA He remains for full code as of now (4) Anemia: Seems to be an anemia of chronic disease Complicated by recent illness Hemoglobin dropped to 6.7 on 03/10 6 he will get 2 units of packed red blood transfusion today Subjective 03/09 The patient was seen and examined in ICU 73-year-old male with history of COPD, smoker, hypertension, recently diagnosed esophageal cancer, upper GI bleed, schizophrenia, presenting with confusion. Patient was recently admitted to [facility] for sepsis secondary to pneumonia. He was discharged on February 17, 2019. The patient was brought back to the emergency room for shortness of breath and cough. At present the patient was febrile at 40 F and hypoxic at 80%.Lactic acid and procalcitonin elevated. Complains to have some shortness of breath and weakness Denies any chest pain no palpitation, any abdominal pain nausea and vomiting 03/10 The patient was seen and examined in ICU overnight more short of breath which improved with bipap and morphine. this morning his breathing has improved his blood pressure was better overnight Review of Systems Respiratory: + cough, + dyspnea, + dyspnea on exertion, + sputum production and + wheezing Neurologic: + generalized weakness Physical Exam Constitutional: + ill appearing Eyes: PERRL, conjunctivae normal, anicteric sclerae ENMT: external ear and nose normal, oropharynx normal Neck: trachea midline, no thyromegaly Respiratory: + respiratory distress, + labored breathing and + uses accessory muscles Auscultation: + diminished lung sounds and + wheezes Cardiovascular: Rate/Rhythm: regular rate and regular rhythm Heart Sounds: normal S1 and normal S2 Gastrointestinal (Abdomen): Inspection/Auscultation: abdomen normal to inspection and normal bowel sounds Percussion/Palpation: abdomen soft; abdomen nontender Musculoskeletal: No acute arthritis in the knee joints Neurologic: Alert and awake. Generally weak Results & Data Vital Signs (Past 12 Hours) Vital Signs Temp Pulse Pulse Resp BP BP Pulse Ox 03/10/19 10:53 36.0 C L 118 H 24 115/88 97 03/10/19 09:58 36.3 C L 118 H 20 115/86 95 03/10/19 09:34 87 L 03/10/19 09:28 36.3 C L 99 H 24 127/91 87 L 03/10/19 09:15 36.1 C L 125 H 24 127/41 L 87 L 03/10/19 09:00 36.0 C L 121 H 24 127/81 86 L 03/10/19 08:54 36.3 C L 24 121/89 90 03/10/19 08:00 36.3 C L 101 H 24 122/94 91 03/10/19 07:04 36.4 C L 138 H 26 H 134/98 03/10/19 07:00 36.4 C L 112 H 20 122/94 96 03/10/19 06:56 118 H 20 93 03/10/19 06:45 113 H 22 112/80 93 03/10/19 06:30 36.3 C L 106 H 18 92/78 L 92 03/10/19 06:25 36.5 C 105 H 19 03/10/19 06:20 36.5 C 102 H 18 106/79 91 03/10/19 06:15 36.4 C L 112 H 18 121/84 92 03/10/19 06:10 119 H 36 H 106/77 89 L 03/10/19 06:05 112 H 20 111/78 92 03/10/19 06:02 36.4 C L 120 H 21 112/89 93 03/10/19 06:01 118 H 22 93 03/10/19 06:00 123 H 25 H 112/89 94 03/10/19 05:59 36.4 C L 121 H 25 H 115/87 93 03/10/19 05:55 112 H 20 92 03/10/19 05:50 36.4 C L 126 H 23 95 03/10/19 03:38 109 H 24 93 03/10/19 03:09 131 H 102/69 86 L 03/10/19 03:01 127 H 88 L 03/10/19 03:00 130 H 91 03/10/19 02:01 114 H 21 100/71 88 L 03/10/19 02:00 112 H 21 88 L 03/10/19 01:00 131 H 22 136/95 88 L 03/10/19 00:28 131 H 29 H 114/75 89 L 03/10/19 00:01 107 H 21 86/58 L 90 03/10/19 00:00 112 H 23 91 Laboratory Results Short CBC 03/09/19 03/10/19 Range/Units 12:48 04:06 WBC 19.82 H 17.15 H (4.8-10.8) K/uL Hgb 7.3 L 6.7 L* (14.0-18.0) g/dL Hct 21.2 L 19.7 L* (42-52) % Plt Count 312 316 (130-400) K/uL BMP 03/10/19 04:06 Sodium 134 L Potassium 3.9 Chloride 108 H Carbon Dioxide 20 L BUN 20 H Creatinine 0.58 L Glucose 195 H Calcium 7.5 L Medications Administered Current Inpatient Medications Acetaminophen (Tylenol) 650 mg PO Q4H PRN PRN Reason: Pain or Fever Stop: 04/07/19 11:36 Benztropine Mesylate (Cogentin) 0.5 mg PO BID [facility] Stop: 04/07/19 20:59 Last Admin: 03/10/19 10:20 Dose: 0.5 mg Documented by: Divalproex Sodium (Depakote Delay Release) 250 mg PO BID [facility] Stop: 04/07/19 11:36 Last Admin: 03/10/19 10:32 Dose: 250 mg Documented by: Sodium Chloride (Nss 1000ml) 1,000 mls @ 125 mls/hr IV .Q8H [facility] Stop: 04/07/19 11:36 Last Infusion: 03/10/19 08:30 Dose: 0 mls/hr Documented by: Piperacillin Sod/Tazobactam (Sod 3.375 gm/ Dextrose) 115 mls @ 28.75 mls/hr IV Q8H [facility]; Protocol Stop: 03/15/19 13:59 Last Infusion: 03/10/19 11:48 Dose: Infused Documented by: Sodium Chloride (Nss) 250 mls @ 15 mls/hr IV .[id number] PRN PRN Reason: For Transfusion Stop: 04/09/19 05:28 Methylprednisolone 40 mg/ (Syringe) 0.64 mls @ 1.5 mls/min IV DAILY [facility] Stop: 04/10/19 08:59 Insulin Aspart (Novolog Flexpen) 0 units SC ACHS [facility] Stop: 03/10/19 18:00 Last Admin: 03/10/19 08:59 Dose: 3 units Documented by: Insulin Aspart (Novolog Flexpen) 0 units SC TODAY@0200 [facility] Stop: 03/11/19 02:01 Insulin Aspart (Novolog Flexpen) 0 units SC ACHS [facility] Stop: 04/09/19 20:59 Insulin Glargine (Lantus Solostar Pen) 0 units SC BID [facility]; Protocol Stop: 04/09/19 20:59 Levalbuterol HCl (Xopenex 0.63 Mg/3 Ml Neb) 0.63 mg NEB Q6R [facility] Stop: 04/07/19 19:59 Last Admin: 03/10/19 06:56 Dose: 0.63 mg Documented by: Magnesium Oxide (Mag-Ox) 400 mg PO QAM [facility] Stop: 04/08/19 08:59 Last Admin: 03/10/19 11:47 Dose: Not Given Documented by: Metoclopramide HCl (Reglan) 10 mg IV Q6H [facility] Stop: 04/07/19 21:59 Last Admin: 03/10/19 10:21 Dose: 10 mg Documented by: Metoprolol Succinate (Toprol Xl) 12.5 mg PO QAM [facility] Stop: 04/08/19 08:59 Last Admin: 03/10/19 10:19 Dose: 12.5 mg Documented by: Miscellaneous (Remove Nicoderm Patch) 1 ea N/A HS [facility] Stop: 04/07/19 20:59 Last Admin: 03/09/19 23:31 Dose: Not Given Documented by: Miscellaneous Information (Consult) 1 ea N/A UD PRN PRN Reason: Consult Stop: 04/07/19 10:20 Miscellaneous Information (Consult Glycemic Management Pharmacy) 1 ea N/A UD PRN PRN Reason: Consult Stop: 04/08/19 16:42 Morphine Sulfate (Morphine Sulfate) 2 mg IV Q3H PRN PRN Reason: Anxiety Stop: 03/24/19 01:18 Last Admin: 03/10/19 05:23 Dose: 2 mg Documented by: Nicotine (Nicoderm Cq) 7 mg TD [facility] Stop: 04/07/19 11:36 Last Admin: 03/10/19 08:32 Dose: 7 mg Documented by: Pantoprazole Sodium (Protonix) 40 mg PO QAM [facility] Stop: 04/07/19 11:59 Last Admin: 03/10/19 10:20 Dose: 40 mg Documented by: Potassium Chloride (Klor-Con M10) 10 meq PO BID [facility] Stop: 04/07/19 11:36 Last Admin: 03/10/19 11:47 Dose: Not Given Documented by: Quetiapine Fumarate (Seroquel) 400 mg PO DAILY@1700 [facility] Stop: 04/08/19 16:59 Last Admin: 03/09/19 16:50 Dose: 400 mg Documented by: Ranitidine HCl (Zantac) 150 mg PO BID [facility] Stop: 04/07/19 20:59 Last Admin: 03/10/19 10:19 Dose: 150 mg Documented by: Risperidone (Risperdal) 2 mg PO BID [facility] Stop: 04/07/19 11:36 Last Admin: 03/10/19 10:20 Dose: 2 mg Documented by:
[2019-03-10] MEDS: POTASSIUM CHLORIDE 10 MEQ TABCR PO SCH ×2 (11:47→23:49)
[2019-03-10] MEDS: MAGNESIUM OXIDE 400 MG TAB PO SCH (11:47)
[2019-03-10] MEDS ORDERED: RAPID SEQUENCE INDUCTION BAG ONE (15:42)
[2019-03-10] MEDS ORDERED: ROCURONIUM BROMIDE 10 MG/ML 10 ML VIAL IV ONE (15:45)
[2019-03-10] MEDS ORDERED: ETOMIDATE 2 MG/ML 20 ML VIAL IV ONE (15:45)
[2019-03-10] MEDS ORDERED: fentaNYL citrate 100 MCG/2 ML VIAL IV PRN (16:05)
--- NOTE | 2019-03-10 16:18 | Procedure Note ---
Procedure Note Date of Service March 10, 2019 Note Intubation note: do to patients worsening hypoxia and work of breathing decision to intubate etomidate 20 mg and rocuronium 80 mg given pt intubated with glidescope 3 with grade 1 view . 7.5 tube placed with patients anatomy glidescope blade unable to get optimal position and likely would be easier to intubate with mac blade in the future tube secured 24 at lip good color change equal breath sounds pts sats take a long time to recover Coding
[2019-03-10] MEDS: fentaNYL DRIP 1,250 MCG/250 ML BAG IV SCH (16:25)
--- NOTE | 2019-03-10 16:30 | XRay Report ---
XR chest 1V portable CLINICAL HISTORY: intubation tube position COMPARISON STUDY: 03/08/2019 8:10 PM FINDINGS: Endotracheal tube 3.7 cm above the raj. All remaining components of the study are unchan ged compared to the prior study. Diffuse bilateral parenchymal infiltrative change considered unchang ed in the prior study to perhaps slightly increased in prominence. IMPRESSION: 1. Endotracheal tube placed 3.7 cm both raj. 2. Diffuse findings of parenchymal infiltrative change slightly increased in prominence from the prio r exam. The above report was generated using voice recognition software. It may contain grammatical, syntax or spelling errors. Electronically signed by: Ron Friend M.D. 03/10/2019 4:29 PM
[2019-03-10] MEDS: QUETIAPINE FUMARATE 200 MG TAB PO SCH (17:13)
[2019-03-10 17:28] LABS: iSTAT Allen Test Pass; iSTAT Arterial Blood Gas HCO3 23 meg/L (19-24); iSTAT Arterial Blood Gas pCO2 102 mmHg (35-46); iSTAT Arterial Blood Gas pH 6.97 (7.35-7.45); iSTAT Carbon Dioxide 26 mEq/l (24-31); iSTAT FiO2 100 %; iSTAT Site L Radial
[2019-03-10 18:46] LABS: iSTAT Allen Test Pass; iSTAT Arterial Blood Gas HCO3 22 meg/L (19-24); iSTAT Arterial Blood Gas pCO2 80 mmHg (35-46); iSTAT Arterial Blood Gas pH 7.05 (7.35-7.45); iSTAT Carbon Dioxide 25 mEq/l (24-31); iSTAT FiO2 70 %; iSTAT Site L Radial
[2019-03-10] MEDS: PROPOFOL 1,000 MG/100 ML VIAL IV SCH (20:16)
[2019-03-10] MEDS ORDERED: INSULIN ASPART 100 UNITS/ML 3 ML PEN SC SCH (21:00)
[2019-03-10] MEDS: POTASSIUM CHLORIDE 20 MEQ/15 ML UDC PO SCH (22:58)
[2019-03-10] MEDS: VALPROIC ACID SOLN 250 MG/5 ML UDC PO SCH (23:11)
[2019-03-11] MEDS: INSULIN ASPART 100 UNITS/ML 3 ML PEN SC SCH ×6 (00:20→23:35)
[2019-03-11] MEDS: INSULIN GLARGINE SOLOSTAR 100 UNITS/ML 3 ML PEN SC SCH ×3 (00:20→23:33)
[2019-03-11] MEDS: LEVALBUTEROL HCL 0.63 MG/3 ML NEB NEB SCH ×4 (01:58→20:13)
[2019-03-11] MEDS ORDERED: INSULIN ASPART 100 UNITS/ML 3 ML PEN SC SCH ×2 (02:00)
[2019-03-11] MEDS: METOCLOPRAMIDE HCL INJ 5 MG/ML 2 ML VIAL IV SCH ×4 (05:01→20:53)
[2019-03-11] MEDS: SODIUM CHLORIDE 0.9% 1000ML 1,000 ML IV SCH (05:19)
[2019-03-11 05:36] LABS: Basophils # (auto) 0.05 K/uL (0-0.2); Basophils % (auto) 0.3 %; Hematocrit (blood only) 26.2 % (42-52); Hemoglobin 8.8 g/dL (14.0-18.0); Immature Granulocytes # (auto) 0.76 K/uL (0.00-0.02); Lymphocytes # (auto) 1.75 K/uL (1.2-3.4); Lymphocytes % (auto) 11.5 %; Mean Corpuscular Hgb Conc 33.6 g/dL (32-36); Mean Corpuscular Volume 80.9 fL (80-100); Mean Platelet Volume 9.9 fL (7.4-10.4); Monocytes # (auto) 1.17 K/uL (0.11-0.59); Monocytes % (auto) 7.7 %; Neutrophils # (auto) 11.52 K/uL (1.4-6.5); Neutrophils % (auto) 75.5 %; Nucleated RBC # (auto) 0.11 K/uL (0-0); Nucleated RBC % (auto) 0.7 %; Platelet Count 265 K/uL (130-400); RDW Coefficient of Variation 17.9 % (11.5-14.5); RDW Standard Deviation 53.6 fL (36.4-46.3); Red Blood Count 3.24 M/uL (4.7-6.1); White Blood Count 15.25 K/uL (4.8-10.8)
[2019-03-11 05:51] LABS: iSTAT Allen Test Pass; iSTAT Arterial Blood Gas HCO3 21 meg/L (19-24); iSTAT Arterial Blood Gas pCO2 46 mmHg (35-46); iSTAT Arterial Blood Gas pH 7.27 (7.35-7.45); iSTAT Carbon Dioxide 23 mEq/l (24-31); iSTAT FiO2 60 %; iSTAT Site L Radial
[2019-03-11] MEDS ORDERED: DEXTROSE 50% 50 ML SYRINGE IV ONE (06:12)
[2019-03-11] MEDS: PIPERACILLIN/TAZOBACTAM 3.375 GM in DEXTROSE 5% 100 ML IV SCH ×3 (06:13→21:16)
[2019-03-11 07:15] LABS: Estimated Average Glucose 126 mg/dl
[2019-03-11] MEDS ORDERED: VANCOMYCIN TROUGH ONE (07:30)
--- NOTE | 2019-03-11 07:42 | XRay Report ---
XR chest 1V portable CLINICAL HISTORY: intubated COMPARISON STUDY: Chest CT March 08, 2019. Chest radiograph March 10, 2019. FINDINGS: Tip of endotracheal tube is 3.5 cm above the raj. Tip of nasogastric tube is below the l ower aspect of this image but at least within the body of the stomach. There is no pneumothorax. Ther e are suspected small bilateral pleural effusions. Lung volumes are diminished. Bilateral airspace op acities and interstitial thickening are noted. These have slightly increased but may be due to a hypo ventilatory study. IMPRESSION: 1. Tip of endotracheal tube 3.5 cm above the raj. 2. Bilateral airspace opacities and interstitial thickening which have increased although this could be due to a hypoventilatory study. The findings suggest pneumonia with possible superimposed mild pul monary edema. 3. Small bilateral pleural effusions. Electronically signed by: Mike Hernandez M.D. 03/11/2019 7:40 AM
[2019-03-11] MEDS: methylPREDNISolone 40 MG in SYRINGE 0 ML IV SCH (07:43)
[2019-03-11] MEDS: POTASSIUM CHLORIDE 20 MEQ/15 ML UDC PO SCH ×2 (07:43→20:52)
[2019-03-11] MEDS: VALPROIC ACID SOLN 250 MG/5 ML UDC PO SCH ×2 (07:43→20:53)
[2019-03-11] MEDS: NICOTINE 7 MG/24 HR TDSY TD SCH (07:43)
[2019-03-11] MEDS: BENZTROPINE MESYLATE 0.5 MG TAB PO SCH ×2 (07:45→20:51)
[2019-03-11] MEDS: risperiDONE 2 MG TABLET PO SCH ×2 (07:45→20:52)
[2019-03-11] MEDS: METOPROLOL SUCC 25MG EXT REL TAB PO SCH (07:46)
[2019-03-11] MEDS: PROPOFOL 1,000 MG/100 ML VIAL IV SCH ×3 (07:49→20:58)
[2019-03-11] MEDS: fentaNYL DRIP 1,250 MCG/250 ML BAG IV SCH (07:50)
[2019-03-11] MEDS: MAGNESIUM OXIDE 400 MG TAB PO SCH (07:50)
[2019-03-11] MEDS ORDERED: POTASSIUM CHLORIDE 20 MEQ/15 ML UDC PO SCH (09:00)
--- NOTE | 2019-03-11 09:06 | Pharmacy Report ---
Pharmacy Glycemic Short Note 2 - Date of Service March 11, 2019 - Glycemic Short BSG Results (Last 24 hours): 03/10/19 03/10/19 03/11/19 10:57 15:31 00:18 POC Glucose 216 H 134 H 86 03/11/19 03/11/19 03/11/19 06:07 06:08 06:23 POC Glucose 61 L* 69 L* 148 H OUTPATIENT ANTIDIABETIC REGIMEN: * N/A (no prior dx of DM) * A1c = 6.0% 03/11/19 (consistent w/ "pre-diabetes") ASSESSMENT: 03/11/19 * BSGs have ranged 61-216 over the last 24 hrs * New events in the last 24 hrs: patient required intubation, steroid dose was decreased by 66% * Mild hypoglycemia (FBS 61-65) observed this AM with 14 units Lantus on board. Hypoglycemia was likely secondary to excess basal insulin combined with little to no PO intake yesterday due to resp distress - this combined with the wearing off of higher dose of Solu-Medrol * Pt is a pre-diabetic per A1c so he does have some underlying insulin resistance that is exacerbated by steroid administration. * Pt will be starting enteral feeds today, so he will likely require continued insulin administration as steroids continue. * A reduced Lantus dose will be used according to scale * Novolog Q 4 hrs w/ prandial coverage of enteral feeds will also be initiated 03/10/19 * Patient admitted to ICU for hypoxemic resp failure, secondary to multifocal pna vs pneumonitis * BSGs did climb with the initiation of high dose IV steroid therapy * Steroid dose is being tapered today: Solu-medrol 40mg IV Q 8 hrs ---> 40mg IV Q 24 hrs * Fasting BSG 195 this AM with 9 units of basal insulin on board. Will give stress level 3 (high stres) Lantus dose this AM as pt has received 3 doses of Solu-Medrol in last 24 hrs and these effects on insulin resistance are likely to persist throughout the day today. Will then dose Lantus BID using a scale as insulin sensitivity is likely to change * Novolog doses were not adequate to control hyperglycemia overnight, therefore will increase the correctional and prandial insulin doses for the 1st portion of the day today before scaling back doses this evening to coincide with reduction in steroid dose. * Of note, pt is still hypoxemic this AM and has not been eating much as a result PLAN FOR INPATIENT GLYCEMIC CONTROL: * Check A1c with AM labs tomorrow * Basal insulin * Lantus BID dosing per the following scale: * 0 units if less than 120 * 6 units if 120-180 * 10 units if BSG 180 greater than 160 * Bolus insulin * NovoLog per scale Q 4 hrs * Goal Range: Low 120 mg/dL - High 150 mg/dL * Correction Factor: 35 mg/dL/unit * Nutritional / Prandial insulin per carb ratio of 1 unit per 12 grams CHO administered in tube feeds PLAN FOR DISCHARGE: * given his A1c, he will not likely require insulin on discharge if acute stressors resolve and steroids are stopped
--- NOTE | 2019-03-11 09:12 | Critical Care Progress Note ---
Date of Service March 11, 2019 Assessment & Plan (1) Multifocal pneumonia: Neuro- sedated with fentanyl and proprofol for comfort on vent. schizophrenia CV- HD stable Pulmonary- acute hypoxic respiratory failure due to pneumonia vs pneumonitis. likely recurrent aspiration. ARDS required intubation yesterday. continue vent support. low tidal volume ventilation. titrate fio2 and PEEP for sat >88%. COPD no current wheezing on levalbuterol and steroids ID- pneumonia on piperacillin-tazobactam. follow cultures Renal- cr ok . hyponatremia hypovolemia vs SIADH GI- recurrent aspiration. esophageal CA with plan for eventual esophagectomy. will start tube feeds Heme- anemia. no clear source bleeding. follow hgb. transfuse if hgb <7 Endocrine- blood sugars controlled with decreased steroids Dispo- continue ICU care for hemodynamic support I have personally spent 45 minutes of critical care time in the direct management of this patient. This is a life/limb threatening event. This includes time spent evaluating patient, direct bedside care, chart review, placing orders, interpretation of diagnostic studies, discussion with consultants, patient, and/or family members regarding treatment decisions, as well as other required patient management activities. This time is exclusive of all separately billable procedures, and teaching time and separate from and in addition to any other critical care service time. Subjective worsening respiratory distress and hypoxia throughout the day yesterday requiring intubation Physical Exam Physical Exam: Constitutional: Comfortable NAD on vent HEENT: normocephalic atraumatic. CV: tachycardic nl s1,s2 no murmurs rubs or gallops Lungs: decreased bilaterally with scatterd crackles. no accessory muscle use Abd: soft nontender nondistended. normal bowel sounds Ext: no edema. no cyanosis, no clubbing Skin: warm dry Neuro: sedated Psych: sedated Results & Data Vital Signs (Past 12 Hours) Vital Signs Temp Pulse Resp BP Pulse Ox 03/11/19 07:17 88 31 H 95 03/11/19 06:46 85 101/63 95 03/11/19 06:30 96 H 100/65 96 03/11/19 06:16 92 H 96/64 L 96 03/11/19 06:00 98 H 112/69 95 03/11/19 05:56 93 H 96/61 L 81 L 03/11/19 05:45 97 H 98/65 L 98 03/11/19 05:30 97 H 97/63 L 97 03/11/19 05:17 87 32 H 100 03/11/19 05:15 93 H 96/58 L 100 03/11/19 05:00 99 H 87/60 L 98 03/11/19 04:45 98 H 93/60 L 98 03/11/19 04:30 99 H 90/58 L 98 03/11/19 04:15 99 H 92/58 L 98 03/11/19 04:00 36.4 C L 98 H 92/59 L 98 03/11/19 03:45 99 H 94/62 L 98 03/11/19 03:30 101 H 95/62 L 99 03/11/19 03:15 101 H 94/62 L 99 03/11/19 03:00 101 H 90/62 L 99 03/11/19 02:45 100 H 95/63 L 99 03/11/19 02:31 99 H 95/63 L 98 03/11/19 02:16 101 H 95/60 L 99 03/11/19 02:01 94 H 91/61 L 99 03/11/19 02:00 99 H 31 H 98 03/11/19 01:46 98 H 92/57 L 98 03/11/19 01:31 99 H 86/59 L 98 03/11/19 01:16 99 H 84/58 L 99 03/11/19 01:01 99 H 90/56 L 98 03/11/19 01:00 98 H 98 03/11/19 00:46 100 H 91/59 L 98 03/11/19 00:31 96 H 93/61 L 99 03/11/19 00:16 98 H 95/65 L 97 03/11/19 00:01 101 H 96/61 L 99 03/11/19 00:00 100 H 98 03/10/19 23:46 101 H 93/60 L 99 03/10/19 23:31 100 H 89/64 L 99 03/10/19 23:15 103 H 96/62 L 100 03/10/19 23:12 103 H 34 H 100 03/10/19 23:00 98 H 99/62 L 100 03/10/19 22:45 102 H 95/58 L 100 03/10/19 22:31 103 H 88/54 L 100 03/10/19 22:15 101 H 95/63 L 100 03/10/19 22:00 108 H 101/66 100 03/10/19 21:45 106 H 98/64 L 100 03/10/19 21:30 105 H 101/64 100 03/10/19 21:16 107 H 96/63 L 100 Laboratory Results Laboratory Results - last 24 hr 03/09/19 03/10/19 03/10/19 07:46 10:57 15:31 WBC RBC Hgb Hct MCV MCH MCHC RDW Std Deviation RDW Coeff of Migel Plt Count MPV Immature Gran % (Auto) Neut % (Auto) Lymph % (Auto) Terrell % (Auto) Eos % (Auto) Baso % (Auto) Immature Gran # (Auto) Neut # (Auto) Lymph # (Auto) Terrell # (Auto) Eos # (Auto) Baso # (Auto) Absolute Nucleated RBC Nucleated RBC % (auto) Sample Site POC pH POC pCO2 POC pO2 POC HCO3 POC Total CO2 POC Base Excess POC ABG O2 Sat Ra Test O2 Delivery Device POC O2 Rate Minute Ventilation POC FiO2 Tidal Volume PEEP POC Glucose 216 H 134 H Estimat Average Glucose Hemoglobin A1c Crossmatch See Detail 03/10/19 03/10/19 03/11/19 17:14 18:33 00:18 WBC RBC Hgb Hct MCV MCH MCHC RDW Std Deviation RDW Coeff of Migel Plt Count MPV Immature Gran % (Auto) Neut % (Auto) Lymph % (Auto) Terrell % (Auto) Eos % (Auto) Baso % (Auto) Immature Gran # (Auto) Neut # (Auto) Lymph # (Auto) Terrell # (Auto) Eos # (Auto) Baso # (Auto) Absolute Nucleated RBC Nucleated RBC % (auto) Sample Site L Radial L Radial POC pH 6.97 L* 7.05 L* POC pCO2 102 H 80 H POC pO2 228 H 87 POC HCO3 23 22 POC Total CO2 26 25 POC Base Excess -8.0 -8.0 POC ABG O2 Sat 99.0 H 91.0 Ra Test Pass Pass O2 Delivery Device Ventilator Ventilator POC O2 Rate 14 24 Minute Ventilation 5.0 9.1 POC FiO2 100 70 Tidal Volume 100 400 PEEP 10 10 POC Glucose 86 Estimat Average Glucose Hemoglobin A1c Crossmatch 03/11/19 03/11/19 03/11/19 04:12 04:12 05:28 WBC 15.25 H RBC 3.24 L Hgb 8.8 L Hct 26.2 L MCV 80.9 MCH 27.2 MCHC 33.6 RDW Std Deviation 53.6 H RDW Coeff of Migel 17.9 H Plt Count 265 MPV 9.9 Immature Gran % (Auto) 5.0 Neut % (Auto) 75.5 Lymph % (Auto) 11.5 Terrell % (Auto) 7.7 Eos % (Auto) 0.0 Baso % (Auto) 0.3 Immature Gran # (Auto) 0.76 H Neut # (Auto) 11.52 H Lymph # (Auto) 1.75 Terrell # (Auto) 1.17 H Eos # (Auto) 0.00 Baso # (Auto) 0.05 Absolute Nucleated RBC 0.11 H Nucleated RBC % (auto) 0.7 Sample Site L Radial POC pH 7.27 L POC pCO2 46 POC pO2 145 H POC HCO3 21 POC Total CO2 23 L POC Base Excess -6.0 POC ABG O2 Sat 99.0 H Ra Test Pass O2 Delivery Device Ventilator POC O2 Rate 30 Minute Ventilation 12.4 POC FiO2 60 Tidal Volume 400 PEEP 10 POC Glucose Estimat Average Glucose 126 Hemoglobin A1c 6.0 H Crossmatch 03/11/19 03/11/19 03/11/19 06:07 06:08 06:23 WBC RBC Hgb Hct MCV MCH MCHC RDW Std Deviation RDW Coeff of Migel Plt Count MPV Immature Gran % (Auto) Neut % (Auto) Lymph % (Auto) Terrell % (Auto) Eos % (Auto) Baso % (Auto) Immature Gran # (Auto) Neut # (Auto) Lymph # (Auto) Terrell # (Auto) Eos # (Auto) Baso # (Auto) Absolute Nucleated RBC Nucleated RBC % (auto) Sample Site POC pH POC pCO2 POC pO2 POC HCO3 POC Total CO2 POC Base Excess POC ABG O2 Sat Ra Test O2 Delivery Device POC O2 Rate Minute Ventilation POC FiO2 Tidal Volume PEEP POC Glucose 61 L* 69 L* 148 H Estimat Average Glucose Hemoglobin A1c Crossmatch
[2019-03-11] MEDS ORDERED: FIBERSOURCE HN 1.2 CAL 1000 ML BAG OG SCH (09:15)
[2019-03-11] MEDS ORDERED: PANTOprazole 40 MG in SYRINGE 0 ML IV SCH (11:00)
[2019-03-11] MEDS: IMPACT LIQD 1.0 CAL 1,000 ML BAG OG SCH (11:14)
[2019-03-11] MEDS: HEPARIN SOD 5,000 UNIT/0.5 ML VIAL SQ SCH ×2 (11:16→20:54)
--- NOTE | 2019-03-11 11:38 | Hospitalist Progress Note ---
Date of Service March 11, 2019 Assessment & Plan (1) On mechanically assisted ventilation: Required mechanical ventilation since yesterday due to increasing hypoxia and hypercapnia Now sedated on mechanical ventilation (2) Acute respiratory failure with hypoxia: Secondary to COPD and complicated by Multifocal pneumonia as treated below Requiring BiPAP to maintain saturation and decreased CO2 level Appreciate electrical and radio mock up mechanic input and recommendations The patient required intubation on 03/10 due to increasing hypoxia and hypercapnia Remains in stable on vent (3) Sepsis: Presented with sepsis likely secondary to pneumonia Continue current antibiotic (4) Multifocal pneumonia: Possible healthcare associated pneumonia VS aspiration pneumonia COPD exacerbation, smoker Has been on intravenous Zosyn ,vancomycin and doxycycline Blood cultures-pending Sputum cultures-not collected Nasal MRSA swab-negative Solu-Medrol 40 mg every 8 hours and nebulized bronchodilators We will not get speech evaluation again Has chronic aspiration and the patient wants to eat orally Has been on mechanical ventilator Encephalopathy secondary Sepsis Mental status appears to be back to baseline CT head negative for acute process Mental status has been improving Hyponatremia Likely hypovolemic Possible component of SIADH secondary to pneumonia Gentle IV fluids Sodium level is 131 on 02/10 9 Sodium 134 on 03/10 Hypertension Reduce metoprolol to half his usual dose to prevent hypotension Esophageal cancer GERD History of upper GI bleed but none at this moment Hemoglobin stable Follow-up with GI Continue PPI PPI Abnormal CT findings per previous admission: There is a 9 mm spiculated appearing nodule in the left lower lobe. This is pathologically indeterminant but concerning for neoplasm. A 2-3 month follow-up examination is recommended in follow-up. 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 Schizophrenia Continue usual medications DVT prophylaxis SCDs for now in light of recent upper GI bleed, esophageal cancer Disposition Lives in [facility] facility Has no family members and or POA He remains for full code as of now (5) Anemia: Seems to be an anemia of chronic disease Complicated by recent illness Hemoglobin dropped to 6.7 on 03/10 6 he will get 2 units of packed red blood transfusion today Hemoglobin is 8.8 today Subjective 03/09 The patient was seen and examined in ICU 73-year-old male with history of COPD, smoker, hypertension, recently diagnosed esophageal cancer, upper GI bleed, schizophrenia, presenting with confusion. Patient was recently admitted to [facility] for sepsis secondary to pneumonia. He was discharged on February 17, 2019. The patient was brought back to the emergency room for shortness of breath and cough. At present the patient was febrile at 40 F and hypoxic at 80%.Lactic acid and procalcitonin elevated. Complains to have some shortness of breath and weakness Denies any chest pain no palpitation, any abdominal pain nausea and vomiting 03/10 The patient was seen and examined in ICU overnight more short of breath which improved with bipap and morphine. this morning his breathing has improved his blood pressure was better overnight 03/11 Patient seen and examined today in ICU He required intubation yesterday due to worsening hypoxia and hypercapnia Remains on sedation Review of Systems Neurologic: + generalized weakness Physical Exam Physical Exam: Remains stable 1 vent Constitutional: + ill appearing Eyes: PERRL, conjunctivae normal, anicteric sclerae ENMT: external ear and nose normal, oropharynx normal Neck: trachea midline, no thyromegaly Respiratory: Auscultation: + diminished lung sounds and + wheezes On mechanical ventilation Cardiovascular: Rate/Rhythm: regular rate and regular rhythm Heart Sounds: normal S1 and normal S2 Gastrointestinal (Abdomen): Inspection/Auscultation: abdomen normal to inspection and normal bowel sounds Percussion/Palpation: abdomen soft; abdomen nontender Results & Data Vital Signs (Past 12 Hours) Vital Signs Temp Pulse Resp BP Pulse Ox 03/11/19 11:22 108 H 32 H 97 03/11/19 10:01 106 H 92/52 L 96 03/11/19 09:01 104 H 90/52 L 95 03/11/19 08:01 37.5 C 101 H 98/64 L 96 03/11/19 07:30 102 H 98/61 L 95 03/11/19 07:17 88 31 H 95 03/11/19 07:01 97 H 96/61 L 96 03/11/19 06:46 85 101/63 95 03/11/19 06:30 96 H 100/65 96 03/11/19 06:16 92 H 96/64 L 96 03/11/19 06:00 98 H 112/69 95 03/11/19 05:56 93 H 96/61 L 81 L 03/11/19 05:45 97 H 98/65 L 98 03/11/19 05:30 97 H 97/63 L 97 03/11/19 05:17 87 32 H 100 03/11/19 05:15 93 H 96/58 L 100 03/11/19 05:00 99 H 87/60 L 98 03/11/19 04:45 98 H 93/60 L 98 03/11/19 04:30 99 H 90/58 L 98 03/11/19 04:15 99 H 92/58 L 98 03/11/19 04:00 36.4 C L 98 H 92/59 L 98 03/11/19 03:45 99 H 94/62 L 98 03/11/19 03:30 101 H 95/62 L 99 03/11/19 03:15 101 H 94/62 L 99 03/11/19 03:00 101 H 90/62 L 99 03/11/19 02:45 100 H 95/63 L 99 03/11/19 02:31 99 H 95/63 L 98 03/11/19 02:16 101 H 95/60 L 99 03/11/19 02:01 94 H 91/61 L 99 03/11/19 02:00 99 H 31 H 98 03/11/19 01:46 98 H 92/57 L 98 03/11/19 01:31 99 H 86/59 L 98 03/11/19 01:16 99 H 84/58 L 99 03/11/19 01:01 99 H 90/56 L 98 03/11/19 01:00 98 H 98 03/11/19 00:46 100 H 91/59 L 98 03/11/19 00:31 96 H 93/61 L 99 03/11/19 00:16 98 H 95/65 L 97 03/11/19 00:01 101 H 96/61 L 99 03/11/19 00:00 100 H 98 03/10/19 23:46 101 H 93/60 L 99 Laboratory Results Short CBC 03/11/19 Range/Units 04:12 WBC 15.25 H (4.8-10.8) K/uL Hgb 8.8 L (14.0-18.0) g/dL Hct 26.2 L (42-52) % Plt Count 265 (130-400) K/uL Medications Administered Current Inpatient Medications Acetaminophen (Tylenol) 650 mg PO Q4H PRN PRN Reason: Pain or Fever Stop: 04/07/19 11:36 Benztropine Mesylate (Cogentin) 0.5 mg PO BID [facility] Stop: 04/07/19 20:59 Last Admin: 03/11/19 07:45 Dose: 0.5 mg Documented by: Enteral Nutritional Formula (Impact 1.0 Sergei) 1,000 ml OG UD [facility]; Protocol Stop: 04/10/19 09:59 Last Admin: 03/11/19 11:14 Dose: 1,000 ml Documented by: Fentanyl Citrate (Fentanyl Citrate) 25 mcg IV ONE PRN PRN Reason: Pain Not Controlled by Drip Stop: 03/24/19 16:04 Heparin Sodium (Porcine) (Heparin Sodium (Porcine)) 5,000 units SQ Q8 [facility] Stop: 04/10/19 13:59 Last Admin: 03/11/19 11:16 Dose: 5,000 units Documented by: Piperacillin Sod/Tazobactam (Sod 3.375 gm/ Dextrose) 115 mls @ 28.75 mls/hr IV Q8H [facility]; Protocol Stop: 03/15/19 13:59 Last Infusion: 03/11/19 09:58 Dose: Infused Documented by: Methylprednisolone 40 mg/ (Syringe) 0.64 mls @ 1.5 mls/min IV DAILY [facility] Stop: 04/10/19 08:59 Last Admin: 03/11/19 07:43 Dose: 1.5 mls/min Documented by: Fentanyl Citrate (Fentanyl Drip) 1,250 mcg in 250 mls @ 15 mls/hr IV .[id number] [facility]; Protocol Stop: 03/24/19 16:04 Last Admin: 03/11/19 07:50 Dose: 75 mcg/hr, 15 mls/hr Documented by: Propofol (Diprivan) 1,000 mg in 100 mls @ 7.404 mls/hr IV .[id number] [facility]; Protocol Stop: 03/13/19 19:59 Last Admin: 03/11/19 07:54 Dose: Not Given Documented by: Pantoprazole Sodium 40 mg/ (Syringe) 10 mls @ 5 mls/min IV DAILY@1100 [facility] Stop: 04/10/19 10:59 Last Admin: 03/11/19 07:50 Dose: 5 mls/min Documented by: Insulin Aspart (Novolog Flexpen) 0 units SC Q4 [facility] Stop: 04/10/19 11:59 Last Admin: 03/11/19 11:15 Dose: Not Given Documented by: Insulin Glargine (Lantus Solostar Pen) 0 units SC BID@0000,1200 [facility]; Protocol Stop: 04/10/19 00:00 Last Admin: 03/11/19 11:15 Dose: Not Given Documented by: Levalbuterol HCl (Xopenex 0.63 Mg/3 Ml Neb) 0.63 mg NEB Q6R [facility] Stop: 04/07/19 19:59 Last Admin: 03/11/19 07:16 Dose: 0.63 mg Documented by: Magnesium Oxide (Mag-Ox) 400 mg PO QAM [facility] Stop: 04/08/19 08:59 Last Admin: 03/11/19 07:50 Dose: 400 mg Documented by: Metoclopramide HCl (Reglan) 10 mg IV Q6H [facility] Stop: 04/07/19 21:59 Last Admin: 03/11/19 07:50 Dose: 10 mg Documented by: Miscellaneous (Remove Nicoderm Patch) 1 ea N/A HS [facility] Stop: 04/07/19 20:59 Last Admin: 03/10/19 22:45 Dose: 1 ea Documented by: Miscellaneous Information (Consult) 1 ea N/A UD PRN PRN Reason: Consult Stop: 04/07/19 10:20 Miscellaneous Information (Consult Glycemic Management Pharmacy) 1 ea N/A UD PRN PRN Reason: Consult Stop: 04/08/19 16:42 Nicotine (Nicoderm Cq) 7 mg TD QAM [facility] Stop: 04/07/19 11:36 Last Admin: 03/11/19 07:43 Dose: 7 mg Documented by: Potassium Chloride (Sujatha Ciel Elix) 10 meq PO BID [facility] Stop: 04/09/19 22:59 Last Admin: 03/11/19 07:43 Dose: 10 meq Documented by: Quetiapine Fumarate (Seroquel) 400 mg PO DAILY@1700 [facility] Stop: 04/08/19 16:59 Last Admin: 03/10/19 17:13 Dose: Not Given Documented by: Ranitidine HCl (Zantac) 150 mg PO BID [facility] Stop: 04/07/19 20:59 Last Admin: 03/11/19 07:46 Dose: Not Given Documented by: Risperidone (Risperdal) 2 mg PO BID [facility] Stop: 04/07/19 11:36 Last Admin: 03/11/19 07:45 Dose: 2 mg Documented by: Valproic Acid (Valproic Acid) 250 mg PO BID [facility] Stop: 04/09/19 22:59 Last Admin: 03/11/19 07:43 Dose: 250 mg Documented by:
[2019-03-11] MEDS: QUETIAPINE FUMARATE 200 MG TAB PO SCH (16:04)
[2019-03-12] MEDS: LEVALBUTEROL HCL 0.63 MG/3 ML NEB NEB SCH ×3 (01:45→19:50)
[2019-03-12] MEDS: fentaNYL DRIP 1,250 MCG/250 ML BAG IV SCH ×2 (02:14→18:44)
[2019-03-12] MEDS: METOCLOPRAMIDE HCL INJ 5 MG/ML 2 ML VIAL IV SCH ×4 (03:30→21:40)
[2019-03-12] MEDS: INSULIN ASPART 100 UNITS/ML 3 ML PEN SC SCH ×5 (03:57→19:44)
[2019-03-12 04:35] LABS: Basophils # (auto) 0.01 K/uL (0-0.2); Basophils % (auto) 0.1 %; Hematocrit (blood only) 30.1 % (42-52); Hemoglobin 9.7 g/dL (14.0-18.0); Immature Granulocytes # (auto) 0.16 K/uL (0.00-0.02); Immature Granulocytes % (auto) 1.5 %; Lymphocytes # (auto) 1.85 K/uL (1.2-3.4); Lymphocytes % (auto) 17.5 %; Mean Corpuscular Hgb Conc 32.2 g/dL (32-36); Mean Corpuscular Volume 80.7 fL (80-100); Mean Platelet Volume 9.8 fL (7.4-10.4); Monocytes # (auto) 1.16 K/uL (0.11-0.59); Monocytes % (auto) 10.9 %; Neutrophils # (auto) 7.42 K/uL (1.4-6.5); Nucleated RBC # (auto) 0.06 K/uL (0-0); Nucleated RBC % (auto) 0.6 %; Platelet Count 302 K/uL (130-400); Red Blood Count 3.73 M/uL (4.7-6.1)
[2019-03-12 05:04] LABS: BUN Creatinine Ratio 42.5 (10-20); Calcium 7.9 mg/dl (8.5-10.1); Creatinine Clr Calc Pharmacy 111.2 ml/min; Est GFR (African American) 123.4; Est GFR (Non-African American) 106.5; Magnesium 2.2 mg/dl (1.8-2.4); Phosphorus 3.5 mg/dl (2.5-4.9); Potassium 4.6 mmol/L (3.5-5.1)
[2019-03-12] MEDS: PIPERACILLIN/TAZOBACTAM 3.375 GM in DEXTROSE 5% 100 ML IV SCH ×3 (05:36→21:41)
[2019-03-12] MEDS: HEPARIN SOD 5,000 UNIT/0.5 ML VIAL SQ SCH ×3 (05:38→21:39)
[2019-03-12] MEDS: POTASSIUM CHLORIDE 20 MEQ/15 ML UDC PO SCH ×2 (08:02→21:39)
[2019-03-12] MEDS: NICOTINE 7 MG/24 HR TDSY TD SCH (08:04)
[2019-03-12] MEDS: BENZTROPINE MESYLATE 0.5 MG TAB PO SCH ×2 (08:04→21:39)
[2019-03-12] MEDS: risperiDONE 2 MG TABLET PO SCH ×2 (08:05→21:39)
[2019-03-12] MEDS: VALPROIC ACID SOLN 250 MG/5 ML UDC PO SCH ×2 (08:05→21:39)
[2019-03-12] MEDS: methylPREDNISolone 40 MG in SYRINGE 0 ML IV SCH (08:12)
[2019-03-12] MEDS: MAGNESIUM OXIDE 400 MG TAB PO SCH (08:12)
[2019-03-12 08:15] LABS: iSTAT Allen Test Pass; iSTAT Arterial Blood Gas HCO3 25 meg/L (19-24); iSTAT Arterial Blood Gas pCO2 43 mmHg (35-46); iSTAT Arterial Blood Gas pH 7.37 (7.35-7.45); iSTAT Carbon Dioxide 26 mEq/l (24-31); iSTAT FiO2 40 %; iSTAT Site R Radial
[2019-03-12] MEDS ORDERED: DOCUSATE SODIUM 100 MG CAP PO SCH (09:00)
--- NOTE | 2019-03-12 09:58 | Pharmacy Report ---
Pharmacy Glycemic Short Note 2 - Date of Service March 12, 2019 - Glycemic Short BSG Results (Last 24 hours): 03/11/19 03/11/19 03/11/19 11:13 16:02 19:47 Glucose POC Glucose 92 106 H 109 H 03/11/19 03/12/19 03/12/19 23:29 03:52 03:56 Glucose 148 H POC Glucose 124 H 160 H 03/12/19 08:01 Glucose POC Glucose 128 H OUTPATIENT ANTIDIABETIC REGIMEN: * N/A (no prior dx of DM) * A1c = 6.0% 03/11/19 (consistent w/ "pre-diabetes") ASSESSMENT: 03/12 * Patient remains intubated, sedated. * Steroids continue at Solu-Medrol 40mg IV Q 24 hrs * Tube feeds (Impact 1.0) continue to be titrated upwards * BSGs well controlled over last 24 hrs. No further episodes of hypoglycemia noted. * Will titrate basal insulin dose downwards again today as BSGs have not climbed quickly with the addition of continuous tube feeds yesterday 03/11/19 * BSGs have ranged 61-216 over the last 24 hrs * New events in the last 24 hrs: patient required intubation, steroid dose was decreased by 66% * Mild hypoglycemia (FBS 61-65) observed this AM with 14 units Lantus on board. Hypoglycemia was likely secondary to excess basal insulin combined with little to no PO intake yesterday due to resp distress - this combined with the wearing off of higher dose of Solu-Medrol * Pt is a pre-diabetic per A1c so he does have some underlying insulin resistance that is exacerbated by steroid administration. * Pt will be starting enteral feeds today, so he will likely require continued insulin administration as steroids continue. * A reduced Lantus dose will be used according to scale * Novolog Q 4 hrs w/ prandial coverage of enteral feeds will also be initiated 03/10/19 * Patient admitted to ICU for hypoxemic resp failure, secondary to multifocal pna vs pneumonitis * BSGs did climb with the initiation of high dose IV steroid therapy * Steroid dose is being tapered today: Solu-medrol 40mg IV Q 8 hrs ---> 40mg IV Q 24 hrs * Fasting BSG 195 this AM with 9 units of basal insulin on board. Will give stress level 3 (high stres) Lantus dose this AM as pt has received 3 doses of Solu-Medrol in last 24 hrs and these effects on insulin resistance are likely to persist throughout the day today. Will then dose Lantus BID using a scale as insulin sensitivity is likely to change * Novolog doses were not adequate to control hyperglycemia overnight, therefore will increase the correctional and prandial insulin doses for the 1st portion of the day today before scaling back doses this evening to coincide with reduction in steroid dose. * Of note, pt is still hypoxemic this AM and has not been eating much as a result PLAN FOR INPATIENT GLYCEMIC CONTROL: * Basal insulin (dose reduction) * Lantus BID dosing per the following scale: * 0 units if less than 130 * 5 units if 130-200 * 10 units if BSG greater than 200 * Bolus insulin (no change) * NovoLog per scale Q 4 hrs * Goal Range: Low 120 mg/dL - High 150 mg/dL * Correction Factor: 35 mg/dL/unit * Nutritional / Prandial insulin per carb ratio of 1 unit per 12 grams CHO administered in tube feeds * Reassess insulin needs with each step-down in steroid dose PLAN FOR DISCHARGE: * given his A1c, he will not likely require insulin on discharge if acute stressors resolve and steroids are stopped
--- NOTE | 2019-03-12 09:59 | Critical Care Progress Note ---
Date of Service March 12, 2019 Assessment & Plan (1) Multifocal pneumonia: Neuro- sedated with fentanyl and proprofol for comfort on vent. daily sedation vacation. schizophrenia CV- HD stable Pulmonary- acute hypoxic respiratory failure due to pneumonia vs pneumonitis. likely recurrent aspiration. ARDS required intubation 03/10. continue vent support. low tidal volume ventilation. titrate fio2 and PEEP for sat >88%. oxygenation improved but based on ABG still not ventilating well requiring high rate COPD no current wheezing on levalbuterol and steroids ID- pneumonia on piperacillin-tazobactam. follow cultures Renal- cr ok . hyponatremia hypovolemia vs SIADH GI- recurrent aspiration. esophageal CA with plan for eventual esophagectomy. continue tube feeds. famotidine proph Heme- anemia. no clear source bleeding. transfuse if hgb <7. heparin proph Endocrine- blood sugars controlled Dispo- continue ICU care for hemodynamic and ventilatory support I have personally spent 45 minutes of critical care time in the direct management of this patient. This is a life/limb threatening event. This includes time spent evaluating patient, direct bedside care, chart review, placing orders, interpretation of diagnostic studies, discussion with consultants, patient, and/or family members regarding treatment decisions, as well as other required patient management activities. This time is exclusive of all separately billable procedures, and teaching time and separate from and in addition to any other critical care service time. Subjective remains sedated on vent Physical Exam Physical Exam: Constitutional: Comfortable NAD on vent HEENT: normocephalic atraumatic. CV: tachycardic nl s1,s2 no murmurs rubs or gallops Lungs: decreased bilaterally with scattered crackles. no accessory muscle use Abd: soft nontender nondistended. normal bowel sounds Ext: no edema. no cyanosis, no clubbing Skin: warm dry Neuro: sedated Psych: sedated Results & Data Vital Signs (Past 12 Hours) Vital Signs Temp Pulse Pulse Resp BP BP Pulse Ox 03/12/19 09:01 105 H 86/60 L 93 03/12/19 09:00 107 H 92 03/12/19 08:01 36.7 C 101 H 122/79 94 03/12/19 08:00 86 93 03/12/19 07:25 112 H 30 H 96 03/12/19 07:21 112 H 30 H 96 03/12/19 07:01 96 H 123/79 98 03/12/19 07:00 113 H 97 03/12/19 06:00 104 H 30 H 125/80 96 03/12/19 05:00 102 H 30 H 98 03/12/19 04:00 36.7 C 98 H 30 H 109/85 96 03/12/19 02:00 75 88 30 H 122/67 95 03/12/19 00:00 36.8 C 88 30 H 114/63 95 03/11/19 23:00 97 H 30 H 95 03/11/19 22:00 94 H 30 H 110/71 96 Laboratory Results Laboratory Results - last 24 hr 03/11/19 03/11/19 03/11/19 11:13 16:02 19:47 WBC RBC Hgb Hct MCV MCH MCHC RDW Std Deviation RDW Coeff of Migel Plt Count MPV Immature Gran % (Auto) Neut % (Auto) Lymph % (Auto) Towns % (Auto) Eos % (Auto) Baso % (Auto) Immature Gran # (Auto) Neut # (Auto) Lymph # (Auto) [place]s # (Auto) Eos # (Auto) Baso # (Auto) Absolute Nucleated RBC Nucleated RBC % (auto) Sample Site POC pH POC pCO2 POC pO2 POC HCO3 POC Total CO2 POC Base Excess POC ABG O2 Sat Ra Test O2 Delivery Device POC O2 Rate Minute Ventilation POC FiO2 Tidal Volume PEEP Sodium Potassium Chloride Carbon Dioxide Anion Gap BUN Creatinine Est Cr Clr Drug Dosing Est GFR ( Amer) Est GFR (Non-Af Amer) BUN/Creatinine Ratio Glucose POC Glucose 92 106 H 109 H Calcium Phosphorus Magnesium 03/11/19 03/12/19 03/12/19 23:29 03:52 03:56 WBC RBC Hgb Hct MCV MCH MCHC RDW Std Deviation RDW Coeff of Migel Plt Count MPV Immature Gran % (Auto) Neut % (Auto) Lymph % (Auto) Towns % (Auto) Eos % (Auto) Baso % (Auto) Immature Gran # (Auto) Neut # (Auto) Lymph # (Auto) [place]s # (Auto) Eos # (Auto) Baso # (Auto) Absolute Nucleated RBC Nucleated RBC % (auto) Sample Site POC pH POC pCO2 POC pO2 POC HCO3 POC Total CO2 POC Base Excess POC ABG O2 Sat Ra Test O2 Delivery Device POC O2 Rate Minute Ventilation POC FiO2 Tidal Volume PEEP Sodium 138 Potassium 4.6 D Chloride 109 H Carbon Dioxide 25 Anion Gap 4.0 BUN 22 H Creatinine 0.53 L Est Cr Clr Drug Dosing 111.2 Est GFR ( Amer) 123.4 Est GFR (Non-Af Amer) 106.5 BUN/Creatinine Ratio 42.5 H Glucose 148 H POC Glucose 124 H 160 H Calcium 7.9 L Phosphorus 3.5 D Magnesium 2.2 03/12/19 03/12/19 03/12/19 03:56 08:00 08:01 WBC 10.60 RBC 3.73 L Hgb 9.7 L Hct 30.1 L MCV 80.7 MCH 26.0 MCHC 32.2 RDW Std Deviation 53.0 H RDW Coeff of Migel 18.0 H Plt Count 302 MPV 9.8 Immature Gran % (Auto) 1.5 Neut % (Auto) 70.0 Lymph % (Auto) 17.5 Towns % (Auto) 10.9 Eos % (Auto) 0.0 Baso % (Auto) 0.1 Immature Gran # (Auto) 0.16 H Neut # (Auto) 7.42 H Lymph # (Auto) 1.85 Towns # (Auto) 1.16 H Eos # (Auto) 0.00 Baso # (Auto) 0.01 Absolute Nucleated RBC 0.06 H Nucleated RBC % (auto) 0.6 Sample Site R Radial POC pH 7.37 POC pCO2 43 POC pO2 68 L POC HCO3 25 H POC Total CO2 26 POC Base Excess -1.0 POC ABG O2 Sat 93.0 Ra Test Pass O2 Delivery Device Ventilator POC O2 Rate 30 Minute Ventilation 13 POC FiO2 40 Tidal Volume 480 PEEP 5 Sodium Potassium Chloride Carbon Dioxide Anion Gap BUN Creatinine Est Cr Clr Drug Dosing Est GFR ( Amer) Est GFR (Non-Af Amer) BUN/Creatinine Ratio Glucose POC Glucose 128 H Calcium Phosphorus Magnesium
[2019-03-12] MEDS: DOCUSATE SODIUM SYRUP 100 MG/10 ML UDC GT SCH ×2 (11:13→21:39)
[2019-03-12] MEDS: PROPOFOL 1,000 MG/100 ML VIAL IV SCH ×2 (11:15→18:43)
[2019-03-12] MEDS: INSULIN GLARGINE SOLOSTAR 100 UNITS/ML 3 ML PEN SC SCH (12:08)
[2019-03-12] MEDS: QUETIAPINE FUMARATE 200 MG TAB PO SCH (15:31)
[2019-03-12] MEDS: FAMOTIDINE 20 MG TAB OG SCH (21:39)
[2019-03-13] MEDS: INSULIN ASPART 100 UNITS/ML 3 ML PEN SC SCH ×6 (00:17→19:52)
[2019-03-13] MEDS: INSULIN GLARGINE SOLOSTAR 100 UNITS/ML 3 ML PEN SC SCH ×2 (00:18→11:57)
[2019-03-13] MEDS: LEVALBUTEROL HCL 0.63 MG/3 ML NEB NEB SCH ×5 (01:58→19:57)
[2019-03-13] MEDS: METOCLOPRAMIDE HCL INJ 5 MG/ML 2 ML VIAL IV SCH ×4 (03:53→21:37)
[2019-03-13 04:33] LABS: Basophils # (auto) 0.01 K/uL (0-0.2); Basophils % (auto) 0.1 %; Hematocrit (blood only) 28.2 % (42-52); Hemoglobin 9.3 g/dL (14.0-18.0); Immature Granulocytes # (auto) 0.13 K/uL (0.00-0.02); Immature Granulocytes % (auto) 1.2 %; Lymphocytes # (auto) 2.16 K/uL (1.2-3.4); Mean Corpuscular Volume 79.7 fL (80-100); Mean Platelet Volume 9.9 fL (7.4-10.4); Monocytes # (auto) 1.12 K/uL (0.11-0.59); Monocytes % (auto) 10.4 %; Neutrophils # (auto) 7.39 K/uL (1.4-6.5); Neutrophils % (auto) 68.3 %; Platelet Count 326 K/uL (130-400); RDW Coefficient of Variation 17.9 % (11.5-14.5); RDW Standard Deviation 52.4 fL (36.4-46.3); Red Blood Count 3.54 M/uL (4.7-6.1); White Blood Count 10.81 K/uL (4.8-10.8)
[2019-03-13 04:52] LABS: Est GFR (African American) 144.6; Est GFR (Non-African American) 124.8; Potassium 4.6 mmol/L (3.5-5.1)
[2019-03-13 04:53] LABS: Calcium 7.8 mg/dl (8.5-10.1); Creatinine Clr Calc Pharmacy 156.5 ml/min; Magnesium 2.1 mg/dl (1.8-2.4)
[2019-03-13 04:55] LABS: Phosphorus 2.3 mg/dl (2.5-4.9)
[2019-03-13 05:31] LABS: iSTAT Allen Test Pass; iSTAT Arterial Blood Gas HCO3 29 meg/L (19-24); iSTAT Arterial Blood Gas pCO2 45 mmHg (35-46); iSTAT Arterial Blood Gas pH 7.42 (7.35-7.45); iSTAT Carbon Dioxide 30 mEq/l (24-31); iSTAT FiO2 40 %; iSTAT Site L Radial
--- NOTE | 2019-03-13 06:58 | XRay Report ---
XR chest 1V portable CLINICAL HISTORY: f/u dyspnea COMPARISON STUDY: 03/11/2019 FINDINGS: Endotracheal tube 2.8 cm with the raj. Nasogastric tube remains within the stomach. Persistent pulmonary vasculature prominence. Potential superimposed infiltrate left base. Findings ar e similar. IMPRESSION: 1. Endotracheal tube 2.8 cm well-defined. 2. Findings of congestive failure and superimposed left basilar infiltrative change considered unalte red from the prior exam. The above report was generated using voice recognition software. It may contain grammatical, syntax or spelling errors. Electronically signed by: Ron Friend M.D. 03/13/2019 6:57 AM
[2019-03-13] MEDS: PROPOFOL 1,000 MG/100 ML VIAL IV SCH ×3 (07:02→19:51)
[2019-03-13] MEDS: HEPARIN SOD 5,000 UNIT/0.5 ML VIAL SQ SCH ×3 (07:03→21:38)
[2019-03-13] MEDS: PIPERACILLIN/TAZOBACTAM 3.375 GM in DEXTROSE 5% 100 ML IV SCH ×3 (07:10→21:37)
[2019-03-13] MEDS: POLYETHYLENE (MIRALAX) 17 GM PACK PO PRN (08:35)
[2019-03-13] MEDS: FAMOTIDINE 20 MG TAB OG SCH ×2 (08:36→21:37)
[2019-03-13] MEDS: IMPACT LIQD 1.0 CAL 1,000 ML BAG OG SCH (08:36)
[2019-03-13] MEDS: POTASSIUM CHLORIDE 20 MEQ/15 ML UDC PO SCH ×2 (08:36→21:37)
[2019-03-13] MEDS: methylPREDNISolone 40 MG in SYRINGE 0 ML IV SCH (08:36)
[2019-03-13] MEDS: risperiDONE 2 MG TABLET PO SCH ×2 (08:36→21:37)
[2019-03-13] MEDS: VALPROIC ACID SOLN 250 MG/5 ML UDC PO SCH ×2 (08:36→21:37)
[2019-03-13] MEDS: BENZTROPINE MESYLATE 0.5 MG TAB PO SCH ×2 (08:37→21:37)
[2019-03-13] MEDS: DOCUSATE SODIUM SYRUP 100 MG/10 ML UDC GT SCH ×2 (08:37→21:37)
--- NOTE | 2019-03-13 09:12 | Critical Care Progress Note ---
Date of Service March 13, 2019 Assessment & Plan (1) Multifocal pneumonia: Neuro- sedated with fentanyl and proprofol for comfort on vent. daily sedation vacation. schizophrenia CV- HD stable Pulmonary- acute hypoxic respiratory failure due to pneumonia vs pneumonitis. likely recurrent aspiration. ARDS required intubation 03/10. continue vent support. low tidal volume ventilation. titrate fio2 and PEEP for sat >88%. oxygenation improved, tolerated PSV for about 30 min but tachycardic tachypneic and hypoxic. will try again tommorow. COPD no current wheezing on levalbuterol and steroids ID- pneumonia on piperacillin-tazobactam to complete 7 days total Renal- cr ok . hyponatremia improved GI- recurrent aspiration. esophageal CA with plan for eventual esophagectomy. continue tube feeds. famotidine proph Heme- anemia. transfuse if hgb <7. heparin proph Endocrine- blood sugars controlled Dispo- continue ICU care for hemodynamic and ventilatory support I have personally spent 45 minutes of critical care time in the direct management of this patient. This is a life/limb threatening event. This includes time spent evaluating patient, direct bedside care, chart review, placing orders, interpretation of diagnostic studies, discussion with consultants, patient, and/or family members regarding treatment decisions, as well as other required patient management activities. This time is exclusive of all separately billable procedures, and teaching time and separate from and in addition to any other critical care service time. Subjective awake following commands on sedation vacation tolerated 30 min of PSV this morning but tachypnea, tachycardia and hypoxia so placed back on AC Physical Exam Physical Exam: Constitutional: Comfortable NAD on vent HEENT: normocephalic atraumatic. CV: tachycardic nl s1,s2 no murmurs rubs or gallops Lungs: decreased bilaterally with scattered crackles. no accessory muscle use Abd: soft nontender nondistended. normal bowel sounds Ext: no edema. no cyanosis, no clubbing Skin: warm dry Neuro: on sedation vacation following simple commands Psych: sedated Results & Data Vital Signs (Past 12 Hours) Vital Signs Temp Pulse Pulse Resp BP Pulse Ox 03/13/19 07:50 33 H 03/13/19 07:48 122 H 20 40 L 03/13/19 06:00 37 C 87 32 H 128/70 03/13/19 05:05 96 H 35 H 95 03/13/19 05:00 81 29 H 108/76 03/13/19 04:00 37 C 97 H 30 H 101/64 96 03/13/19 02:00 102 H 32 H 98 03/13/19 01:00 101 H 30 H 105/65 96 03/13/19 00:00 37 C 103 H 32 H 106/64 95 03/12/19 23:18 105 H 31 H 94 03/12/19 23:00 37.1 C 104 H 30 H 105/61 96 03/12/19 22:00 37 C 108 H 21 108/65 Laboratory Results Laboratory Results - last 24 hr 03/12/19 03/12/19 03/12/19 12:02 15:33 19:28 WBC RBC Hgb Hct MCV MCH MCHC RDW Std Deviation RDW Coeff of Migel Plt Count MPV Immature Gran % (Auto) Neut % (Auto) Lymph % (Auto) [place] % (Auto) Eos % (Auto) Baso % (Auto) Immature Gran # (Auto) Neut # (Auto) Lymph # (Auto) [place] # (Auto) Eos # (Auto) Baso # (Auto) Sample Site POC pH POC pCO2 POC pO2 POC HCO3 POC Total CO2 POC Base Excess POC ABG O2 Sat Ra Test O2 Delivery Device POC O2 Rate Minute Ventilation POC FiO2 Tidal Volume PEEP Sodium Potassium Chloride Carbon Dioxide Anion Gap BUN Creatinine Est Cr Clr Drug Dosing Est GFR ( Amer) Est GFR (Non-Af Amer) BUN/Creatinine Ratio Glucose POC Glucose 152 H 196 H 189 H Calcium Phosphorus Magnesium 03/13/19 03/13/19 03/13/19 00:10 03:55 04:16 WBC 10.81 H RBC 3.54 L Hgb 9.3 L Hct 28.2 L MCV 79.7 L MCH 26.3 MCHC 33.0 RDW Std Deviation 52.4 H RDW Coeff of Migel 17.9 H Plt Count 326 MPV 9.9 Immature Gran % (Auto) 1.2 Neut % (Auto) 68.3 Lymph % (Auto) 20.0 [place] % (Auto) 10.4 Eos % (Auto) 0.0 Baso % (Auto) 0.1 Immature Gran # (Auto) 0.13 H Neut # (Auto) 7.39 H Lymph # (Auto) 2.16 [place] # (Auto) 1.12 H Eos # (Auto) 0.00 Baso # (Auto) 0.01 Sample Site POC pH POC pCO2 POC pO2 POC HCO3 POC Total CO2 POC Base Excess POC ABG O2 Sat Ra Test O2 Delivery Device POC O2 Rate Minute Ventilation POC FiO2 Tidal Volume PEEP Sodium Potassium Chloride Carbon Dioxide Anion Gap BUN Creatinine Est Cr Clr Drug Dosing Est GFR ( Amer) Est GFR (Non-Af Amer) BUN/Creatinine Ratio Glucose POC Glucose 167 H 150 H Calcium Phosphorus Magnesium 03/13/19 03/13/19 03/13/19 04:16 05:18 08:33 WBC RBC Hgb Hct MCV MCH MCHC RDW Std Deviation RDW Coeff of Migel Plt Count MPV Immature Gran % (Auto) Neut % (Auto) Lymph % (Auto) [place] % (Auto) Eos % (Auto) Baso % (Auto) Immature Gran # (Auto) Neut # (Auto) Lymph # (Auto) [place] # (Auto) Eos # (Auto) Baso # (Auto) Sample Site L Radial POC pH 7.42 POC pCO2 45 POC pO2 72 L POC HCO3 29 H POC Total CO2 30 POC Base Excess 5.0 H POC ABG O2 Sat 94.0 Ra Test Pass O2 Delivery Device Ventilator POC O2 Rate 30 Minute Ventilation 12.0 POC FiO2 40 Tidal Volume 400 PEEP 5 Sodium 138 Potassium 4.6 Chloride 106 Carbon Dioxide 32 Anion Gap 0 L BUN 19 H Creatinine 0.36 L Est Cr Clr Drug Dosing 156.5 Est GFR ( Amer) 144.6 Est GFR (Non-Af Amer) 124.8 BUN/Creatinine Ratio 52.0 H Glucose 144 H POC Glucose 128 H Calcium 7.8 L Phosphorus 2.3 L D Magnesium 2.1
--- NOTE | 2019-03-13 09:35 | Pharmacy Report ---
Pharmacy Glycemic Short Note 2 - Date of Service March 13, 2019 - Glycemic Short BSG Results (Last 24 hours): 03/12/19 03/12/19 03/12/19 12:02 15:33 19:28 Glucose POC Glucose 152 H 196 H 189 H 03/13/19 03/13/19 03/13/19 00:10 03:55 04:16 Glucose 144 H POC Glucose 167 H 150 H 03/13/19 08:33 Glucose POC Glucose 128 H OUTPATIENT ANTIDIABETIC REGIMEN: * N/A (no prior dx of DM) * A1c = 6.0% 03/11/19 (consistent w/ "pre-diabetes") ASSESSMENT: 03/13 * Received 31 units of insulin over last 24 hrs * Most BSGs at goal over the last 24 hours. BSGs did peak at 189-196 last evening. I believe this was likely related to upwards titration of tube feeds and possibly due to delayed effects of IV Solu-medrol administration. * Impact now at goal rate of 65cc/hr. Pt remains intubated, sedated. Solu- medrol 40mg IV Q 24 hrs continues. * Will only make minor changes to today's insulin regimen : small increase in Novolog CF and CR doses 03/12 * Patient remains intubated, sedated. * Steroids continue at Solu-Medrol 40mg IV Q 24 hrs * Tube feeds (Impact 1.0) continue to be titrated upwards * BSGs well controlled over last 24 hrs. No further episodes of hypoglycemia noted. * Will titrate basal insulin dose downwards again today as BSGs have not climbed quickly with the addition of continuous tube feeds yesterday 03/11/19 * BSGs have ranged 61-216 over the last 24 hrs * New events in the last 24 hrs: patient required intubation, steroid dose was decreased by 66% * Mild hypoglycemia (FBS 61-65) observed this AM with 14 units Lantus on board. Hypoglycemia was likely secondary to excess basal insulin combined with little to no PO intake yesterday due to resp distress - this combined with the wearing off of higher dose of Solu-Medrol * Pt is a pre-diabetic per A1c so he does have some underlying insulin resistance that is exacerbated by steroid administration. * Pt will be starting enteral feeds today, so he will likely require continued insulin administration as steroids continue. * A reduced Lantus dose will be used according to scale * Novolog Q 4 hrs w/ prandial coverage of enteral feeds will also be initiated PLAN FOR INPATIENT GLYCEMIC CONTROL: * Basal insulin (no change) * Lantus BID dosing per the following scale: * 0 units if less than 130 * 5 units if 130-200 * 10 units if BSG greater than 200 * Bolus insulin (dose increase) * NovoLog per scale Q 4 hrs * Goal Range: Low 120 mg/dL - High 150 mg/dL * Correction Factor: 30 mg/dL/unit * Nutritional / Prandial insulin per carb ratio of 1 unit per 10 grams CHO administered in tube feeds * Reassess insulin needs with each step-down in steroid dose PLAN FOR DISCHARGE: * given his A1c, he will not likely require insulin on discharge if acute stressors resolve and steroids are stopped
[2019-03-13] MEDS: MAGNESIUM OXIDE 400 MG TAB PO SCH (12:06)
[2019-03-13] MEDS: NICOTINE 7 MG/24 HR TDSY TD SCH (12:06)
[2019-03-13] MEDS: fentaNYL DRIP 1,250 MCG/250 ML BAG IV SCH (12:42)
--- NOTE | 2019-03-13 14:39 | Hospitalist Progress Note ---
Date of Service Please notice for 03/12March 13, 2019 Assessment & Plan (1) On mechanically assisted ventilation: Required mechanical ventilation since yesterday due to increasing hypoxia and hypercapnia Now sedated on mechanical ventilation Remains ventilated (2) Acute respiratory failure with hypoxia: Secondary to COPD and complicated by Multifocal pneumonia as treated below Requiring BiPAP to maintain saturation and decreased CO2 level Appreciate site acquisition manager input and recommendations The patient required intubation on 03/10 due to increasing hypoxia and hypercapnia Remains in stable on vent (3) Sepsis: Presented with sepsis likely secondary to pneumonia Continue current antibiotic (4) Multifocal pneumonia: No increasing depression no increasing white countPossible healthcare associated pneumonia VS aspiration pneumonia COPD exacerbation, smoker Has been on intravenous Zosyn ,vancomycin and doxycycline Blood cultures-pending Sputum cultures-not collected Nasal MRSA swab-negative Solu-Medrol 40 mg every 8 hours and nebulized bronchodilators We will not get speech evaluation again Has chronic aspiration and the patient wants to eat orally Has been on mechanical ventilator Encephalopathy secondary Sepsis Mental status appears to be back to baseline CT head negative for acute process Mental status has been improving Hyponatremia Likely hypovolemic Possible component of SIADH secondary to pneumonia Gentle IV fluids Sodium level is 131 on 02/10 9 Sodium 134 on 03/10 Hypertension Reduce metoprolol to half his usual dose to prevent hypotension Esophageal cancer GERD History of upper GI bleed but none at this moment Hemoglobin stable Follow-up with GI Continue PPI PPI Abnormal CT findings per previous admission: There is a 9 mm spiculated appearing nodule in the left lower lobe. This is pathologically indeterminant but concerning for neoplasm. A 2-3 month follow-up examination is recommended in follow-up. 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 Schizophrenia Continue usual medications DVT prophylaxis SCDs for now in light of recent upper GI bleed, esophageal cancer Disposition Lives in [facility] Has no family members and or POA He remains for full code as of now (5) Anemia: Seems to be an anemia of chronic disease Complicated by recent illness Hemoglobin dropped to 6.7 on 03/10 6 he will get 2 units of packed red blood transfusion today Hemoglobin is 8.8 after transfusion Subjective 03/09 The patient was seen and examined in ICU 73-year-old male with history of COPD, smoker, hypertension, recently diagnosed esophageal cancer, upper GI bleed, schizophrenia, presenting with confusion. Patient was recently admitted to [facility] for sepsis secondary to pneumonia. He was discharged on February 17, 2019. The patient was brought back to the emergency room for shortness of breath and cough. At present the patient was febrile at 40 F and hypoxic at 80%.Lactic acid and procalcitonin elevated. Complains to have some shortness of breath and weakness Denies any chest pain no palpitation, any abdominal pain nausea and vomiting 03/10 The patient was seen and examined in ICU overnight more short of breath which improved with bipap and morphine. this morning his breathing has improved his blood pressure was better overnight 03/11 Patient seen and examined today in ICU He required intubation yesterday due to worsening hypoxia and hypercapnia Remains on sedation 03/13 Late documentation today for 03/12 Required intubation and keeps intubated Requiring IV sedation Review of Systems Respiratory: Remains on mechanical ventilator Neurologic: + generalized weakness Physical Exam Constitutional: + ill appearing Eyes: PERRL, conjunctivae normal, anicteric sclerae ENMT: external ear and nose normal, oropharynx normal Neck: trachea midline, no thyromegaly Respiratory: + respiratory distress Auscultation: + diminished lung sounds Cardiovascular: Rate/Rhythm: regular rate and regular rhythm Heart Sounds: normal S1 and normal S2 Gastrointestinal (Abdomen): Inspection/Auscultation: abdomen normal to insp ection and normal bowel sounds Percussion/Palpation: abdomen soft; abdomen nontender Results & Data Vital Signs (Past 12 Hours) Vital Signs Temp Pulse Pulse Resp BP Pulse Ox 03/13/19 14:21 111 H 32 H 97 03/13/19 12:01 37.3 C 109 H 115/68 96 03/13/19 11:26 107 H 30 H 95 03/13/19 11:01 108 H 110/69 95 03/13/19 10:01 105 H 101/64 93 03/13/19 09:01 136 H 144/89 H 92 03/13/19 08:22 118 H 127/73 90 03/13/19 08:01 37.4 C 142 H 176/138 H 86 L 03/13/19 07:50 33 H 03/13/19 07:48 122 H 20 40 L 03/13/19 07:01 87 118/75 94 03/13/19 06:00 37 C 87 32 H 128/70 03/13/19 05:05 96 H 35 H 95 03/13/19 05:00 81 29 H 108/76 03/13/19 04:00 37 C 97 H 30 H 101/64 96
--- NOTE | 2019-03-13 14:46 | Hospitalist Progress Note ---
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 and recommendations The patient required intubation on 03/10 due to increasing hypoxia and hypercapnia Remains in stable on vent and stable (3) Sepsis: Presented with sepsis likely secondary to pneumonia Continue current antibiotic No fever and or increase in white count (4) Multifocal pneumonia: No increasing depression no increasing white countPossible healthcare associated pneumonia VS aspiration pneumonia COPD exacerbation, smoker Has been on intravenous Zosyn ,vancomycin and doxycycline Blood cultures-pending Sputum cultures-not collected Nasal MRSA swab-negative Solu-Medrol 40 mg every 8 hours and nebulized bronchodilators We will not get speech evaluation again Has chronic aspiration and the patient wants to eat orally Has been on mechanical ventilator Lungs seems to be clear on auscultation Encephalopathy secondary Sepsis Mental status appears to be back to baseline CT head negative for acute process None on mechanical vent Hyponatremia Likely hypovolemic Possible component of SIADH secondary to pneumonia Gentle IV fluids Sodium level is 131 on 02/10 9 Sodium 134 on 03/10 Sodium has been normalized Hypertension Reduce metoprolol to half his usual dose to prevent hypotension Esophageal cancer GERD History of upper GI bleed but none at this moment Hemoglobin stable Follow-up with GI Continue PPI PPI Abnormal CT findings per previous admission: There is a 9 mm spiculated appearing nodule in the left lower lobe. This is pathologically indeterminant but concerning for neoplasm. A 2-3 month follow-up examination is recommended in follow-up. 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 Schizophrenia Continue usual medications DVT prophylaxis SCDs for now in light of recent upper GI bleed, esophageal cancer Disposition Lives in [facility] facility Has no family members and or POA He remains for full code as of now (5) Anemia: Seems to be an anemia of chronic disease Complicated by recent illness Hemoglobin dropped to 6.7 on 03/10 6 he will get 2 units of packed red blood transfusion today Hemoglobin is 8.8 after transfusion Hemoglobin is 9.3 on 03/13 No family member and/or representative government relations from [facility] are not available to discuss the case Subjective 03/09 The patient was seen and examined in ICU 73-year-old male with history of COPD, smoker, hypertension, recently diagnosed esophageal cancer, upper GI bleed, schizophrenia, presenting with confusion. Patient was recently admitted to [facility] for sepsis second mahsa to pneumonia. He was discharged on February 17, 2019. The patient was brought back to the emergency room for shortness of breath and cough. At present the patient was febrile at 40 F and hypoxic at 80%.Lactic acid and procalcitonin elevated. Complains to have some shortness of breath and weakness Denies any chest pain no palpitation, any abdominal pain nausea and vomiting 03/10 The patient was seen and examined in ICU overnight more short of breath which improved with bipap and morphine. this morning his breathing has improved his blood pressure was better overnight 03/11 Patient seen and examined today in ICU He required intubation yesterday due to worsening hypoxia and hypercapnia Remains on sedation 03/13 Late documentation today for 03/12 Required intubation and keeps intubated Requiring IV sedation 03/13 Patient has been examined in ICU Trial for extubation failed Has been getting less sedatives Review of Systems Review of Systems: Unobtainable due to endotracheal tube Physical Exam Physical Exam: Remains intubated and stable Constitutional: + ill appearing Eyes: PERRL, conjunctivae normal, anicteric sclerae ENMT: external ear and nose normal, oropharynx normal Neck: trachea midline, no thyromegaly Respiratory: Auscultation: + diminished lung sounds (Otherwise clear) Cardiovascular: Rate/Rhythm: regular rate and regular rhythm Heart Sounds: normal S1 and normal S2 Gastrointestinal (Abdomen): Inspection/Auscultation: abdomen normal to inspection and normal bowel sounds Percussion/Palpation: abdomen soft; abdomen nontender Neurologic: Sedated Results & Data Vital Signs (Past 12 Hours) Vital Signs Temp Pulse Pulse Resp BP Pulse Ox 03/13/19 14:21 111 H 32 H 97 03/13/19 12:01 37.3 C 109 H 115/68 96 03/13/19 11:26 107 H 30 H 95 03/13/19 11:01 108 H 110/69 95 03/13/19 10:01 105 H 101/64 93 03/13/19 09:01 136 H 144/89 H 92 03/13/19 08:22 118 H 127/73 90 03/13/19 08:01 37.4 C 142 H 176/138 H 86 L 03/13/19 07:50 33 H 03/13/19 07:48 122 H 20 40 L 03/13/19 07:01 87 118/75 94 03/13/19 06:00 37 C 87 32 H 128/70 03/13/19 05:05 96 H 35 H 95 03/13/19 05:00 81 29 H 108/76 03/13/19 04:00 37 C 97 H 30 H 101/64 96 Laboratory Results Short CBC 03/13/19 Range/Units 04:16 WBC 10.81 H (4.8-10.8) K/uL Hgb 9.3 L (14.0-18.0) g/dL Hct 28.2 L (42-52) % Plt Count 326 (130-400) K/uL BMP 03/13/19 04:16 Sodium 138 Potassium 4.6 Chloride 106 Carbon Dioxide 32 BUN 19 H Creatinine 0.36 L Glucose 144 H Calcium 7.8 L Medications Administered Current Inpatient Medications Acetaminophen (Tylenol) 650 mg PO Q4H PRN PRN Reason: Pain or Fever Stop: 04/07/19 11:36 Benztropine Mesylate (Cogentin) 0.5 mg PO BID [facility] Stop: 04/07/19 20:59 Last Admin: 03/13/19 08:37 Dose: 0.5 mg Documented by: Docusate Sodium (Colace) 100 mg GT BID [facility] Stop: 04/11/19 10:59 Last Admin: 03/13/19 08:37 Dose: 100 mg Documented by: Enteral Nutritional Formula (Impact 1.0 Sergei) 1,000 ml OG UD [facility]; Protocol Stop: 04/10/19 09:59 Last Admin: 03/13/19 08:36 Dose: 1,000 ml Documented by: Famotidine (Pepcid) 20 mg OG BID [facility] Stop: 04/11/19 20:59 Last Admin: 03/13/19 08:36 Dose: 20 mg Documented by: Fentanyl Citrate (Fentanyl Citrate) 25 mcg IV ONE PRN PRN Reason: Pain Not Controlled by Drip Stop: 03/24/19 16:04 Heparin Sodium (Porcine) (Heparin Sodium (Porcine)) 5,000 units SQ Q8 [facility] Stop: 04/10/19 13:59 Last Admin: 03/13/19 14:01 Dose: 5,000 units Documented by: Piperacillin Sod/Tazobactam (Sod 3.375 gm/ Dextrose) 115 mls @ 28.75 mls/hr IV Q8H [facility]; Protocol Stop: 03/15/19 13:59 Last Admin: 03/13/19 14:01 Dose: 28.7 mls/hr Documented by: Methylprednisolone 40 mg/ (Syringe) 0.64 mls @ 1.5 mls/min IV DAILY [facility] Stop: 04/10/19 08:59 Last Admin: 03/13/19 08:36 Dose: 1.5 mls/min Documented by: Fentanyl Citrate (Fentanyl Drip) 1,250 mcg in 250 mls @ 15 mls/hr IV .[id number] [facility]; Protocol Stop: 03/24/19 16:04 Last Admin: 03/13/19 12:42 Dose: 75 mcg/hr, 15 mls/hr Documented by: Propofol (Diprivan) 1,000 mg in 100 mls @ 11.106 mls/hr IV .Q9H1M [facility]; Protocol Stop: 03/13/19 19:59 Last Admin: 03/13/19 14:01 Dose: 30 mcg/kg/min, 11.1 mls/hr Documented by: Insulin Aspart (Novolog Flexpen) 0 units SC Q4 [facility] Stop: 04/10/19 11:59 Last Admin: 03/13/19 12:05 Dose: 3 units Documented by: Insulin Glargine (Lantus Solostar Pen) 0 units SC BID@0000,1200 [facility]; Protocol Stop: 04/10/19 00:00 Last Admin: 03/13/19 11:57 Dose: Not Given Documented by: Levalbuterol HCl (Xopenex 0.63 Mg/3 Ml Neb) 0.63 mg NEB Q6R [facility] Stop: 04/07/19 19:59 Last Admin: 03/13/19 14:20 Dose: 0.63 mg Documented by: Magnesium Oxide (Mag-Ox) 400 mg PO QAM [facility] Stop: 04/08/19 08:59 Last Admin: 03/13/19 12:06 Dose: 400 mg Documented by: Metoclopramide HCl (Reglan) 10 mg IV Q6H [facility] Stop: 04/07/19 21:59 Last Admin: 03/13/19 08:38 Dose: 10 mg Documented by: Miscellaneous (Remove Nicoderm Patch) 1 ea N/A HS [facility] Stop: 04/07/19 20:59 Last Admin: 03/12/19 22:08 Dose: 1 ea Documented by: Miscellaneous Information (Consult) 1 ea N/A UD PRN PRN Reason: Consult Stop: 04/07/19 10:20 Miscellaneous Information (Consult Glycemic Management Pharmacy) 1 ea N/A UD PRN PRN Reason: Consult Stop: 04/08/19 16:42 Nicotine (Nicoderm Cq) 7 mg TD QAM [facility] Stop: 04/07/19 11:36 Last Admin: 03/13/19 12:06 Dose: 7 mg Documented by: Polyethylene Glycol (Miralax Powder Packet) 17 gm PO DAILY PRN PRN Reason: Constipation Stop: 04/12/19 08:11 Last Admin: 03/13/19 08:35 Dose: 17 gm Documented by: Potassium Chloride (Sujatha Ciel Elix) 10 meq PO BID [facility] Stop: 04/09/19 22:59 Last Admin: 03/13/19 08:36 Dose: 10 meq Documented by: Quetiapine Fumarate (Seroquel) 400 mg PO DAILY@1700 [facility] Stop: 04/08/19 16:59 Last Admin: 03/12/19 15:31 Dose: 400 mg Documented by: Risperidone (Risperdal) 2 mg PO BID [facility] Stop: 04/07/19 11:36 Last Admin: 03/13/19 08:36 Dose: 2 mg Documented by: Valproic Acid (Valproic Acid) 250 mg PO BID [facility] Stop: 04/09/19 22:59 Last Admin: 03/13/19 08:36 Dose: 250 mg Documented by:
[2019-03-13] MEDS: QUETIAPINE FUMARATE 200 MG TAB PO SCH (16:28)
[2019-03-14] MEDS: INSULIN GLARGINE SOLOSTAR 100 UNITS/ML 3 ML PEN SC SCH ×2 (00:08→12:12)
[2019-03-14] MEDS: INSULIN ASPART 100 UNITS/ML 3 ML PEN SC SCH ×6 (00:08→20:41)
[2019-03-14] MEDS: LEVALBUTEROL HCL 0.63 MG/3 ML NEB NEB SCH ×4 (02:01→20:38)
[2019-03-14] MEDS ORDERED: PROPOFOL IV EMULSION 10 MG/ML 100 ML VIAL IV ONE (04:54)
[2019-03-14 04:57] LABS: Eosinophils # (auto) 0.02 K/uL (0-0.5); Eosinophils % (auto) 0.2 %; Hematocrit (blood only) 29.4 % (42-52); Hemoglobin 9.6 g/dL (14.0-18.0); Immature Granulocytes # (auto) 0.13 K/uL (0.00-0.02); Immature Granulocytes % (auto) 1.1 %; Lymphocytes # (auto) 3.34 K/uL (1.2-3.4); Lymphocytes % (auto) 27.9 %; Mean Corpuscular Hgb Conc 32.7 g/dL (32-36); Mean Corpuscular Volume 80.5 fL (80-100); Mean Platelet Volume 9.6 fL (7.4-10.4); Monocytes # (auto) 1.27 K/uL (0.11-0.59); Monocytes % (auto) 10.6 %; Neutrophils # (auto) 7.23 K/uL (1.4-6.5); Neutrophils % (auto) 60.2 %; Platelet Count 391 K/uL (130-400); RDW Coefficient of Variation 18.4 % (11.5-14.5); RDW Standard Deviation 53.8 fL (36.4-46.3); Red Blood Count 3.65 M/uL (4.7-6.1); White Blood Count 11.99 K/uL (4.8-10.8)
[2019-03-14] MEDS: METOCLOPRAMIDE HCL INJ 5 MG/ML 2 ML VIAL IV SCH ×4 (04:57→20:50)
[2019-03-14] MEDS: PIPERACILLIN/TAZOBACTAM 3.375 GM in DEXTROSE 5% 100 ML IV SCH ×3 (04:58→20:51)
[2019-03-14] MEDS: HEPARIN SOD 5,000 UNIT/0.5 ML VIAL SQ SCH ×3 (04:59→20:49)
[2019-03-14 05:16] LABS: BUN Creatinine Ratio 55.7 (10-20); Calcium 7.9 mg/dl (8.5-10.1); Creatinine Clr Calc Pharmacy 165.7 ml/min; Est GFR (African American) 148.1; Est GFR (Non-African American) 127.8; Potassium 4.6 mmol/L (3.5-5.1)
[2019-03-14 05:25] LABS: Phosphorus 3.3 mg/dl (2.5-4.9)
[2019-03-14] MEDS: fentaNYL DRIP 1,250 MCG/250 ML BAG IV SCH (05:46)
[2019-03-14] MEDS: PROPOFOL 1,000 MG/100 ML VIAL IV PRN ×3 (07:01→20:46)
--- NOTE | 2019-03-14 07:44 | XRay Report ---
XR chest 1V portable CLINICAL HISTORY: f/u COMPARISON STUDY: Chest radiograph March 13, 2019. FINDINGS: Tip of endotracheal tube is 2.1 cm above the raj. Tip of nasogastric tube is below the l ower aspect of this image but at least within the stomach. There is no pneumothorax. Small bilateral pleural effusions are noted. Interstitial thickening reflect pulmonary edema. Bibasilar opacities per sist. A hiatal hernia is again noted. IMPRESSION: 1. Tip of endotracheal tube 2.1 cm above the raj. 2. Small bilateral pleural effusions with mild pulmonary edema. 3. Persistent bibasilar opacities which favor pneumonia. Electronically signed by: Mike Hernandez M.D. 03/14/2019 7:43 AM
--- NOTE | 2019-03-14 08:13 | Pharmacy Report ---
Pharmacy Glycemic Short Note 2 - Date of Service March 14, 2019 - Glycemic Short BSG Results (Last 24 hours): 03/13/19 03/13/19 03/13/19 08:33 11:55 16:09 Glucose POC Glucose 128 H 124 H 169 H 03/13/19 03/14/19 03/14/19 19:47 00:04 04:02 Glucose POC Glucose 139 H 156 H 107 H 03/14/19 04:15 Glucose 96 POC Glucose OUTPATIENT ANTIDIABETIC REGIMEN: * N/A (no prior dx of DM) * A1c = 6.0% 03/11/19 (consistent w/ "pre-diabetes") ASSESSMENT: 03/14 * 26 units given in last 24 hrs * All BSGs have been at goal * Patient remains intubated, sedated, with Solu-Medrol at same dosage. * There may be plans to attempt extubation today * One BSG did drop to 104 this AM, tube feeds were not being held prior to this. This does not fit the overall pattern of prior BSGs with current stressors, however decrease in BSG may be related to HS dose of Lantus 6 units. Will decrease Lantus dose by ~ 50% as a result and continue Novolog unchanged 03/13 * Received 31 units of insulin over last 24 hrs * Most BSGs at goal over the last 24 hours. BSGs did peak at 189-196 last evening. I believe this was likely related to upwards titration of tube feeds and possibly due to delayed effects of IV Solu-medrol administration. * Impact now at goal rate of 65cc/hr. Pt remains intubated, sedated. Solu- medrol 40mg IV Q 24 hrs continues. * Will only make minor changes to today's insulin regimen : small increase in Novolog CF and CR doses 03/12 * Patient remains intubated, sedated. * Steroids continue at Solu-Medrol 40mg IV Q 24 hrs * Tube feeds (Impact 1.0) continue to be titrated upwards * BSGs well controlled over last 24 hrs. No further episodes of hypoglycemia noted. * Will titrate basal insulin dose downwards again today as BSGs have not climbed quickly with the addition of continuous tube feeds yesterday PLAN FOR INPATIENT GLYCEMIC CONTROL: * Basal insulin (decrease in dose) * Lantus BID dosing per the following scale: * 0 units if less than 150 * 3 units if BSG 150 or greater * Bolus insulin (no change) * NovoLog per scale Q 4 hrs * Goal Range: Low 120 mg/dL - High 150 mg/dL * Correction Factor: 30 mg/dL/unit * Nutritional / Prandial insulin per carb ratio of 1 unit per 10 grams CHO administered in tube feeds * Reassess insulin needs with each step-down in steroid dose PLAN FOR DISCHARGE: * given his A1c, he will not likely require insulin on discharge if acute stressors resolve and steroids are stopped
[2019-03-14] MEDS: methylPREDNISolone 40 MG in SYRINGE 0 ML IV SCH (08:23)
[2019-03-14] MEDS: POTASSIUM CHLORIDE 20 MEQ/15 ML UDC PO SCH ×2 (08:24→20:47)
[2019-03-14] MEDS: NICOTINE 7 MG/24 HR TDSY TD SCH (08:24)
[2019-03-14] MEDS: FAMOTIDINE 20 MG TAB OG SCH ×2 (08:24→20:48)
[2019-03-14] MEDS: BENZTROPINE MESYLATE 0.5 MG TAB PO SCH ×2 (08:24→20:43)
[2019-03-14] MEDS: risperiDONE 2 MG TABLET PO SCH ×2 (08:24→20:48)
[2019-03-14] MEDS: MAGNESIUM OXIDE 400 MG TAB PO SCH (08:24)
[2019-03-14] MEDS: VALPROIC ACID SOLN 250 MG/5 ML UDC PO SCH ×2 (08:24→20:49)
[2019-03-14] MEDS: DOCUSATE SODIUM SYRUP 100 MG/10 ML UDC GT SCH ×2 (08:24→20:46)
[2019-03-14] MEDS: POLYETHYLENE (MIRALAX) 17 GM PACK PO PRN (08:25)
--- NOTE | 2019-03-14 08:33 | Critical Care Progress Note ---
Date of Service March 14, 2019 Assessment & Plan (1) Multifocal pneumonia: Neuro- sedated with fentanyl and proprofol for comfort on vent. daily sedation vacation. schizophrenia CV- HD stable Pulmonary- acute hypoxic respiratory failure due to pneumonia vs pneumonitis. likely recurrent aspiration. ARDS required intubation 03/10. continue vent support. low tidal volume ventilation. titrate fio2 and PEEP for sat >88%. oxygenation improved, tolerated PSV for about 30 min yesterday will try again today. COPD no current wheezing on levalbuterol and steroids ID- pneumonia on piperacillin-tazobactam to complete 7 days total will complete after today Renal- cr ok . hyponatremia improved GI- recurrent aspiration. esophageal CA with plan for eventual esophagectomy. continue tube feeds. famotidine proph Heme- anemia. transfuse if hgb <7. heparin proph Endocrine- blood sugars controlled Dispo- continue ICU care for hemodynamic and ventilatory support I have personally spent 45 minutes of critical care time in the direct management of this patient. This is a life/limb threatening event. This includes time spent evaluating patient, direct bedside care, chart review, placing orders, interpretation of diagnostic studies, discussion with consultants, patient, and/or family members regarding treatment decisions, as well as other required patient management activities. This time is exclusive of all separately billable procedures, and teaching time and separate from and in addition to any other critical care service time. Subjective failed SBT yesterday remains sedated this morning Physical Exam Physical Exam: Constitutional: Comfortable NAD on vent HEENT: normocephalic atraumatic. CV: tachycardic nl s1,s2 no murmurs rubs or gallops Lungs: decreased bilaterally with scattered crackles. no accessory muscle use Abd: soft nontender nondistended. normal bowel sounds Ext: no edema. no cyanosis, no clubbing Skin: warm dry Neuro: sedated Psych: sedated Results & Data Vital Signs (Past 12 Hours) Vital Signs Temp Pulse Resp BP Pulse Ox 03/14/19 08:12 128 H 14 94 03/14/19 07:30 115 H 33 H 92 03/14/19 06:00 79 30 H 100/62 94 03/14/19 05:00 78 30 H 110/69 94 03/14/19 04:56 72 31 H 95 03/14/19 03:00 37 C 93 H 28 H 99/59 L 96 03/14/19 02:02 93 H 32 H 96 03/14/19 02:00 91 H 22 100/58 L 94 03/14/19 01:00 97 H 26 H 97/57 L 96 03/14/19 00:00 37 C 98 H 30 H 95/55 L 96 03/13/19 23:31 101 H 31 H 96 03/13/19 23:00 103 H 30 H 100/59 L 96 03/13/19 22:00 102 H 30 H 99/57 L 96 03/13/19 21:00 105 H 30 H 99/58 L 96 Laboratory Results Laboratory Results - last 24 hr 03/13/19 03/13/19 03/13/19 08:33 11:55 16:09 WBC RBC Hgb Hct MCV MCH MCHC RDW Std Deviation RDW Coeff of Migel Plt Count MPV Immature Gran % (Auto) Neut % (Auto) Lymph % (Auto) [place] % (Auto) Eos % (Auto) Baso % (Auto) Immature Gran # (Auto) Neut # (Auto) Lymph # (Auto) [place] # (Auto) Eos # (Auto) Baso # (Auto) Sodium Potassium Chloride Carbon Dioxide Anion Gap BUN Creatinine Est Cr Clr Drug Dosing Est GFR ( Amer) Est GFR (Non-Af Amer) BUN/Creatinine Ratio Glucose POC Glucose 128 H 124 H 169 H Calcium Phosphorus Magnesium 03/13/19 03/14/19 03/14/19 19:47 00:04 04:02 WBC RBC Hgb Hct MCV MCH MCHC RDW Std Deviation RDW Coeff of Migel Plt Count MPV Immature Gran % (Auto) Neut % (Auto) Lymph % (Auto) [place] % (Auto) Eos % (Auto) Baso % (Auto) Immature Gran # (Auto) Neut # (Auto) Lymph # (Auto) [place] # (Auto) Eos # (Auto) Baso # (Auto) Sodium Potassium Chloride Carbon Dioxide Anion Gap BUN Creatinine Est Cr Clr Drug Dosing Est GFR ( Amer) Est GFR (Non-Af Amer) BUN/Creatinine Ratio Glucose POC Glucose 139 H 156 H 107 H Calcium Phosphorus Magnesium 03/14/19 03/14/19 03/14/19 04:15 04:15 08:13 WBC 11.99 H RBC 3.65 L Hgb 9.6 L Hct 29.4 L MCV 80.5 MCH 26.3 MCHC 32.7 RDW Std Deviation 53.8 H RDW Coeff of Migel 18.4 H Plt Count 391 MPV 9.6 Immature Gran % (Auto) 1.1 Neut % (Auto) 60.2 Lymph % (Auto) 27.9 [place] % (Auto) 10.6 Eos % (Auto) 0.2 Baso % (Auto) 0.0 Immature Gran # (Auto) 0.13 H Neut # (Auto) 7.23 H Lymph # (Auto) 3.34 [place] # (Auto) 1.27 H Eos # (Auto) 0.02 Baso # (Auto) 0.00 Sodium 138 Potassium 4.6 Chloride 101 Carbon Dioxide 37 H Anion Gap -1.0 L BUN 19 H Creatinine 0.34 L Est Cr Clr Drug Dosing 165.7 Est GFR ( Amer) 148.1 Est GFR (Non-Af Amer) 127.8 BUN/Creatinine Ratio 55.7 H Glucose 96 POC Glucose 144 H Calcium 7.9 L Phosphorus 3.3 D Magnesium 2.0
--- NOTE | 2019-03-14 15:52 | Hospitalist Progress Note ---
Date of Service March 14, 2019 Assessment & Plan (1) On mechanically assisted ventilation: Required mechanical ventilation since yesterday due to increasing hypoxia and hypercapnia Now sedated on mechanical ventilation Remains ventilated and still not yet ready to be extubated Current management as per rad technologist (2) Acute respiratory failure with hypoxia: Secondary to COPD and complicated by Multifocal pneumonia as treated below Requiring BiPAP to maintain saturation and decreased CO2 level Appreciate rad technologist input and recommendations The patient required intubation on 03/10 due to increasing hypoxia and hypercapnia Remains in stable on vent and stable (3) Sepsis: Presented with sepsis likely secondary to pneumonia Continue current antibiotic No fever and or increase in white count (4) Multifocal pneumonia: No increasing depression no increasing white countPossible healthcare associated pneumonia VS aspiration pneumonia COPD exacerbation, smoker Has been on intravenous Zosyn ,vancomycin and doxycycline Blood cultures-negative Sputum cultures-not collected Nasal MRSA swab-negative Solu-Medrol 40 mg every 8 hours and nebulized bronchodilators We will not get speech evaluation again Has chronic aspiration and the patient wants to eat orally Has been on mechanical ventilator and sedated Lungs seems to be clear on auscultation Encephalopathy secondary Sepsis Mental status appears to be back to baseline CT head negative for acute process Hyponatremia Likely hypovolemic Possible component of SIADH secondary to pneumonia Gentle IV fluids Sodium level is 131 on 02/10 9 Sodium 134 on 03/10 Sodium has been normalized Hypertension Reduce metoprolol to half his usual dose to prevent hypotension Esophageal cancer GERD History of upper GI bleed but none at this moment Hemoglobin stable Follow-up with GI Continue PPI PPI Abnormal CT findings per previous admission: There is a 9 mm spiculated appearing nodule in the left lower lobe. This is pathologically indeterminant but concerning for neoplasm. A 2-3 month follow-up examination is recommended in follow-up. 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 Schizophrenia Continue usual medications Nutrition Has been on nasogastric tube feeding DVT prophylaxis SCDs for now in light of recent upper GI bleed, esophageal cancer Disposition Lives in [facility] Has no family members and or POA He remains for full code as of now (5) Anemia: Seems to be an anemia of chronic disease Complicated by recent illness Hemoglobin dropped to 6.7 on 03/10 6 he will get 2 units of packed red blood transfusion today Hemoglobin is 8.8 after transfusion Hemoglobin is 9.3 on 03/13 Hemoglobin remains stable at more than 9 No family member and/or franchise sales representative from [facility] are not available to discuss the case Subjective 03/09 The patient was seen and examined in ICU 73-year-old male with history of COPD, smoker, hypertension, recently diagnosed esophageal cancer, upper GI bleed, schizophrenia, presenting with confusion. Patient was recently admitted to [facility] for sepsis secondary to pneumonia. He was discharged on February 17, 2019. The patient was brought back to the emergency room for shortness of breath and cough. At present the patient was febrile at 40 F and hypoxic at 80%.Lactic acid and procalcitonin elevated. Complains to have some shortness of breath and weakness Denies any chest pain no palpitation, any abdominal pain nausea and vomiting 03/10 The patient was seen and examined in ICU overnight more short of breath which improved with bipap and morphine. this morning his breathing has improved his blood pressure was better overnight 03/11 Patient seen and examined today in ICU He required intubation yesterday due to worsening hypoxia and hypercapnia Remains on sedation 03/13 Late documentation today for 03/12 Required intubation and keeps intubated Requiring IV sedation 03/13 Patient has been examined in ICU Trial for extubation failed Has been getting less sedatives 03/14 The patient was seen and examined today in ICU He remains intubated So for that symptom extubation have been failed Review of Systems Neurologic: + generalized weakness Physical Exam Physical Exam: Stable on mechanical ventilation Constitutional: + ill appearing Eyes: PERRL, conjunctivae normal, anicteric sclerae ENMT: external ear and nose normal, oropharynx normal Neck: trachea midline, no thyromegaly Respiratory: + respiratory distress Auscultation: + diminished lung sounds (Otherwise clear) Cardiovascular: Rate/Rhythm: regular rate and regular rhythm Heart Sounds: normal S1 and normal S2 Gastrointestinal (Abdomen): Inspection/Auscultation: abdomen normal to inspection and normal bowel sounds Percussion/Palpation: abdomen soft; abdomen nontender Results & Data Vital Signs (Past 12 Hours) Vital Signs Temp Pulse Resp BP Pulse Ox 03/14/19 15:01 107 H 91/52 L 96 03/14/19 15:00 106 H 96 03/14/19 14:01 37.3 C 105 H 99/56 L 95 03/14/19 13:15 110 H 32 H 95 03/14/19 13:01 109 H 96/56 L 95 03/14/19 12:25 120 H 93/59 L 93 03/14/19 12:01 38 C H 132 H 145/101 H 94 03/14/19 11:20 138 H 37 H 92 03/14/19 11:01 135 H 147/95 H 91 03/14/19 10:01 132 H 158/97 H 90 03/14/19 09:30 30 H 03/14/19 09:01 143 H 183/116 H 89 L 03/14/19 08:12 128 H 14 94 03/14/19 08:01 37.3 C 103 H 138/76 93 03/14/19 07:30 115 H 30 H 92 03/14/19 07:01 112 H 122/83 95 03/14/19 06:00 79 30 H 100/62 94 03/14/19 05:00 78 30 H 110/69 94 03/14/19 04:56 72 31 H 95 Laboratory Results Short CBC 03/14/19 Range/Units 04:15 WBC 11.99 H (4.8-10.8) K/uL Hgb 9.6 L (14.0-18.0) g/dL Hct 29.4 L (42-52) % Plt Count 391 (130-400) K/uL BMP 03/14/19 04:15 Sodium 138 Potassium 4.6 Chloride 101 Carbon Dioxide 37 H BUN 19 H Creatinine 0.34 L Glucose 96 Calcium 7.9 L Medications Administered Current Inpatient Medications Acetaminophen (Tylenol) 650 mg PO Q4H PRN PRN Reason: Pain or Fever Stop: 04/07/19 11:36 Benztropine Mesylate (Cogentin) 0.5 mg PO BID [facility] Stop: 04/07/19 20:59 Last Admin: 03/14/19 08:24 Dose: 0.5 mg Documented by: Docusate Sodium (Colace) 100 mg GT BID [facility] Stop: 04/11/19 10:59 Last Admin: 03/14/19 08:24 Dose: 100 mg Documented by: Enteral Nutritional Formula (Impact 1.0 Sergei) 1,000 ml OG UD [facility]; Protocol Stop: 04/10/19 09:59 Last Admin: 03/13/19 08:36 Dose: 1,000 ml Documented by: Famotidine (Pepcid) 20 mg OG BID [facility] Stop: 04/11/19 20:59 Last Admin: 03/14/19 08:24 Dose: 20 mg Documented by: Fentanyl Citrate (Fentanyl Citrate) 25 mcg IV ONE PRN PRN Reason: Pain Not Controlled by Drip Stop: 03/24/19 16:04 Heparin Sodium (Porcine) (Heparin Sodium (Porcine)) 5,000 units SQ Q8 [facility] Stop: 04/10/19 13:59 Last Admin: 03/14/19 13:49 Dose: 5,000 units Documented by: Piperacillin Sod/Tazobactam (Sod 3.375 gm/ Dextrose) 115 mls @ 28.75 mls/hr IV Q8H [facility]; Protocol Stop: 03/15/19 13:59 Last Admin: 03/14/19 13:48 Dose: 28.7 mls/hr Documented by: Methylprednisolone 40 mg/ (Syringe) 0.64 mls @ 1.5 mls/min IV DAILY [facility] Stop: 04/10/19 08:59 Last Admin: 03/14/19 08:23 Dose: 1.5 mls/min Documented by: Fentanyl Citrate (Fentanyl Drip) 1,250 mcg in 250 mls @ 15 mls/hr IV .[id number] [facility]; Protocol Stop: 03/24/19 16:04 Last Titration: 03/14/19 11:30 Dose: 75 mcg/hr, 15 mls/hr Documented by: Propofol (Diprivan) 1,000 mg in 100 mls @ 12.348 mls/hr IV .Q8H6M PRN; Protocol PRN Reason: TITRATE Stop: 03/17/19 04:59 Last Admin: 03/14/19 13:48 Dose: 35 mcg/kg/min, 12.3 mls/hr Documented by: Insulin Aspart (Novolog Flexpen) 0 units SC Q4 [facility] Stop: 04/10/19 11:59 Last Admin: 03/14/19 12:11 Dose: 4 units Documented by: Insulin Glargine (Lantus Solostar Pen) 0 units SC BID@0000,1200 [facility]; Protocol Stop: 04/10/19 00:00 Last Admin: 03/14/19 12:12 Dose: 3 units Documented by: Levalbuterol HCl (Xopenex 0.63 Mg/3 Ml Neb) 0.63 mg NEB Q6R [facility] Stop: 04/07/19 19:59 Last Admin: 03/14/19 13:15 Dose: 0.63 mg Documented by: Magnesium Oxide (Mag-Ox) 400 mg PO QAM [facility] Stop: 04/08/19 08:59 Last Admin: 03/14/19 08:24 Dose: 400 mg Documented by: Metoclopramide HCl (Reglan) 10 mg IV Q6H [facility] Stop: 04/07/19 21:59 Last Admin: 03/14/19 10:33 Dose: 10 mg Documented by: Miscellaneous (Remove Nicoderm Patch) 1 ea N/A HS [facility] Stop: 04/07/19 20:59 Last Admin: 03/13/19 22:19 Dose: 1 ea Documented by: Miscellaneous Information (Consult) 1 ea N/A UD PRN PRN Reason: Consult Stop: 03/15/19 13:59 Miscellaneous Information (Consult Glycemic Management Pharmacy) 1 ea N/A UD PRN PRN Reason: Consult Stop: 04/08/19 16:42 Nicotine (Nicoderm Cq) 7 mg TD QAM [facility] Stop: 04/07/19 11:36 Last Admin: 03/14/19 08:24 Dose: 7 mg Documented by: Polyethylene Glycol (Miralax Powder Packet) 17 gm PO DAILY PRN PRN Reason: Constipation Stop: 04/12/19 08:11 Last Admin: 03/14/19 08:25 Dose: 17 gm Documented by: Potassium Chloride (Sujatha Ciel Elix) 10 meq PO BID [facility] Stop: 04/09/19 22:59 Last Admin: 03/14/19 08:24 Dose: 10 meq Documented by: Quetiapine Fumarate (Seroquel) 400 mg PO DAILY@1700 [facility] Stop: 04/08/19 16:59 Last Admin: 03/13/19 16:28 Dose: 400 mg Documented by: Risperidone (Risperdal) 2 mg PO BID [facility] Stop: 04/07/19 11:36 Last Admin: 03/14/19 08:24 Dose: 2 mg Documented by: Valproic Acid (Valproic Acid) 250 mg PO BID [facility] Stop: 04/09/19 22:59 Last Admin: 03/14/19 08:24 Dose: 250 mg Documented by:
[2019-03-14] MEDS: QUETIAPINE FUMARATE 200 MG TAB PO SCH (16:24)
[2019-03-14] MEDS ORDERED: GLUCAGON FOR INJ 1 MG VIAL IM PRN (17:15)
[2019-03-14] MEDS ORDERED: CARBOHYDRATES FOR HYPOGLYCEMIA PO PRN (17:15)
[2019-03-14] MEDS ORDERED: GLUCOSE 40% GEL 15 GM TUBE PO PRN (17:15)
[2019-03-14] MEDS ORDERED: DEXTROSE 50% 50 ML SYRINGE IV PRN (17:15)
[2019-03-14] MEDS ORDERED: GLUCOSE 10 TABS/TUBE PO PRN (17:15)
[2019-03-14 21:36] LABS: BUN Creatinine Ratio 59.8 (10-20); Blood Urea Nitrogen 18 mg/dl (7-18); Calcium 8.5 mg/dl (8.5-10.1); Carbon Dioxide 34 mmol/L (21-32); Chloride 103 mmol/L (98-107); Creatinine Clr Calc Pharmacy 188.9 ml/min; Est GFR (African American) > 150.0; Est GFR (Non-African American) 132.7; Glucose 110 mg/dl (70-99); Potassium 4.8 mmol/L (3.5-5.1); Sodium 140 mmol/L (136-145)
[2019-03-15] MEDS: INSULIN ASPART 100 UNITS/ML 3 ML PEN SC SCH ×6 (00:15→21:38)
[2019-03-15] MEDS: INSULIN GLARGINE SOLOSTAR 100 UNITS/ML 3 ML PEN SC SCH (00:17)
[2019-03-15] MEDS: fentaNYL DRIP 1,250 MCG/250 ML BAG IV SCH ×3 (00:29→17:22)
[2019-03-15] MEDS: LEVALBUTEROL HCL 0.63 MG/3 ML NEB NEB SCH ×4 (02:33→19:44)
[2019-03-15] MEDS: METOCLOPRAMIDE HCL INJ 5 MG/ML 2 ML VIAL IV SCH ×4 (04:30→21:43)
[2019-03-15 05:10] LABS: Basophils # (auto) 0.01 K/uL (0-0.2); Basophils % (auto) 0.1 %; Eosinophils # (auto) 0.03 K/uL (0-0.5); Eosinophils % (auto) 0.2 %; Hematocrit (blood only) 28.2 % (42-52); Hemoglobin 9.3 g/dL (14.0-18.0); Immature Granulocytes # (auto) 0.15 K/uL (0.00-0.02); Lymphocytes % (auto) 21.9 %; Mean Corpuscular Volume 80.1 fL (80-100); Mean Platelet Volume 9.6 fL (7.4-10.4); Monocytes # (auto) 1.26 K/uL (0.11-0.59); Monocytes % (auto) 8.1 %; Neutrophils # (auto) 10.67 K/uL (1.4-6.5); Neutrophils % (auto) 68.7 %; Platelet Count 442 K/uL (130-400); RDW Coefficient of Variation 18.8 % (11.5-14.5); RDW Standard Deviation 54.2 fL (36.4-46.3); Red Blood Count 3.52 M/uL (4.7-6.1); White Blood Count 15.52 K/uL (4.8-10.8)
[2019-03-15] MEDS: PROPOFOL 1,000 MG/100 ML VIAL IV PRN ×2 (05:33→14:16)
[2019-03-15] MEDS: HEPARIN SOD 5,000 UNIT/0.5 ML VIAL SQ SCH ×3 (05:34→21:42)
[2019-03-15] MEDS: PIPERACILLIN/TAZOBACTAM 3.375 GM in DEXTROSE 5% 100 ML IV SCH (05:34)
[2019-03-15 05:44] LABS: iSTAT Arterial Blood Gas HCO3 33 meg/L (19-24); iSTAT Arterial Blood Gas pCO2 49 mmHg (35-46); iSTAT Arterial Blood Gas pH 7.44 (7.35-7.45); iSTAT Carbon Dioxide 35 mEq/l (24-31); iSTAT FiO2 40 %; iSTAT Site R Brachial
[2019-03-15 05:47] LABS: BUN Creatinine Ratio 60.5 (10-20); Calcium 8.2 mg/dl (8.5-10.1); Creatinine Clr Calc Pharmacy 158.3 ml/min; Est GFR (Non-African American) 123.4; Potassium 4.7 mmol/L (3.5-5.1)
[2019-03-15 05:51] LABS: Phosphorus 4.3 mg/dl (2.5-4.9)
[2019-03-15] MEDS ORDERED: LACTULOSE SYRUP 30 GM/45 ML UDP PO ONE (07:49)
--- NOTE | 2019-03-15 07:51 | Critical Care Progress Note ---
Date of Service March 15, 2019 Assessment & Plan (1) Multifocal pneumonia: Neuro- sedated with fentanyl and proprofol for comfort on vent. daily sedation vacation. schizophrenia CV- HD stable Pulmonary- acute hypoxic respiratory failure due to pneumonia vs pneumonitis. likely recurrent aspiration. ARDS required intubation 03/10. continue vent support. low tidal volume ventilation. titrate fio2 and PEEP for sat >88%. oxygenation improved, tolerated PSV for about 30 min yesterday will try again today. COPD no current wheezing on levalbuterol and steroids(taper to 20 mg today) ID- pneumonia completed abx Renal- cr ok . hyponatremia improved. episode yesterday of greatly increased UOP. watch UOP ?medication related GI- recurrent aspiration. esophageal CA with plan for eventual esophagectomy. continue tube feeds. famotidine proph Heme- anemia. transfuse if hgb <7. heparin proph. leukoyctosis WBC increased today Endocrine- blood sugars controlled Dispo- continue ICU care for hemodynamic and ventilatory support I have personally spent 45 minutes of critical care time in the direct management of this patient. This is a life/limb threatening event. This includes time spent evaluating patient, direct bedside care, chart review, placing orders, interpretation of diagnostic studies, discussion with consultants, patient, and/or family members regarding treatment decisions, as well as other required patient management activities. This time is exclusive of all separately billable procedures, and teaching time and separate from and in addition to any other critical care service time. Subjective failed SBT yesterday after 1 hours and 10 minutes as became uncomfortable with accessory muscle use following simple commands today Physical Exam Physical Exam: Constitutional: Comfortable NAD on vent HEENT: normocephalic atraumatic. CV: tachycardic nl s1,s2 no murmurs rubs or gallops Lungs: decreased bilaterally. no accessory muscle use Abd: soft nontender nondistended. normal bowel sounds Ext: no edema. no cyanosis, no clubbing Skin: warm dry Neuro: following simple commands. moving all ext Results & Data Vital Signs (Past 12 Hours) Vital Signs Pulse Resp BP Pulse Ox 03/15/19 07:21 116 H 32 H 95 03/15/19 06:00 83 30 H 119/74 95 03/15/19 05:27 92 H 33 H 95 03/15/19 05:00 94 H 30 H 95/53 L 96 03/15/19 03:00 96 H 30 H 81/46 L 96 03/15/19 02:33 93 H 30 H 97 03/15/19 01:00 95 H 30 H 81/44 L 96 03/15/19 00:00 93 H 30 H 84/50 L 97 03/14/19 23:44 91 H 30 H 96 03/14/19 23:00 91 H 30 H 93/59 L 96 03/14/19 22:00 92 H 30 H 87/56 L 96 03/14/19 21:00 101 H 30 H 94/57 L 94 03/14/19 20:40 98 H 30 H 96
--- NOTE | 2019-03-15 08:03 | XRay Report ---
SINGLE VIEW CHEST CLINICAL HISTORY: Follow-up congestive failure. FINDINGS: 2 AP, portable, upright chest radiographs are compared to study dated 03/14/2019. Correlation is made with chest CT dated 03/08/2019. The examination is significantly degraded by portable techniq ue and patient rotation. Endotracheal and enteric tubes are unchanged in position. The heart is enlar ged and there is atherosclerotic calcification of the thoracic aorta. There is pulmonary vascular con gestion and interstitial edema. There are layering pleural effusions with bibasilar airspace consolid ation. No pneumothorax is seen. The skeletal structures are osteopenic. The bony thorax is grossly in tact. IMPRESSION: 1. Cardiomegaly with evidence of congestive failure and interstitial edema. 2. There are layering pleural effusions. 3. There is bibasilar consolidation, left greater than right. The appearance suggests superimposed pn eumonia and clinical correlation will be required. Electronically signed by: Kofi Fitzpatrick M.D. 03/15/2019 8:02 AM
[2019-03-15] MEDS: risperiDONE 2 MG TABLET PO SCH ×2 (08:04→21:41)
[2019-03-15] MEDS: DOCUSATE SODIUM SYRUP 100 MG/10 ML UDC GT SCH ×2 (08:04→21:40)
[2019-03-15] MEDS: MAGNESIUM OXIDE 400 MG TAB PO SCH (08:04)
[2019-03-15] MEDS: VALPROIC ACID SOLN 250 MG/5 ML UDC PO SCH ×2 (08:04→21:41)
[2019-03-15] MEDS: BENZTROPINE MESYLATE 0.5 MG TAB PO SCH ×2 (08:04→21:39)
[2019-03-15] MEDS: FAMOTIDINE 20 MG TAB OG SCH ×2 (08:04→21:40)
[2019-03-15] MEDS: NICOTINE 7 MG/24 HR TDSY TD SCH (08:04)
[2019-03-15] MEDS: POLYETHYLENE (MIRALAX) 17 GM PACK PO PRN (08:04)
[2019-03-15] MEDS: POTASSIUM CHLORIDE 20 MEQ/15 ML UDC PO SCH ×2 (08:07→21:40)
--- NOTE | 2019-03-15 09:15 | Pharmacy Report ---
Pharmacy Glycemic Short Note 2 - Date of Service March 15, 2019 - Glycemic Short BSG Results (Last 24 hours): 03/14/19 03/14/19 03/14/19 12:08 16:15 20:34 Glucose POC Glucose 170 H 139 H 124 H 03/14/19 03/15/19 03/15/19 20:35 00:11 04:27 Glucose 110 H POC Glucose 100 H 118 H 03/15/19 03/15/19 04:49 07:51 Glucose 124 H POC Glucose 126 H OUTPATIENT ANTIDIABETIC REGIMEN: * N/A (no prior dx of DM) * A1c = 6.0% 03/11/19 (consistent w/ "pre-diabetes") ASSESSMENT: 03/15 * 18 units given over last 24 hrs * BSGs again at goal * BSGs are trending a little lower over last 12 hrs * Will dc Lantus order at this time and rely on Novolog in alone for next 24 hrs * Pt remains intubated this AM and looks as though they may not be extubated today. Tube feeds continue at goal. Solu-medrol continues at same dose. 03/14 * 26 units given in last 24 hrs * All BSGs have been at goal * Patient remains intubated, sedated, with Solu-Medrol at same dosage. * There may be plans to attempt extubation today * One BSG did drop to 104 this AM, tube feeds were not being held prior to this. This does not fit the overall pattern of prior BSGs with current stressors, however decrease in BSG may be related to HS dose of Lantus 6 units. Will decrease Lantus dose by ~ 50% as a result and continue Novolog unchanged 03/13 * Received 31 units of insulin over last 24 hrs * Most BSGs at goal over the last 24 hours. BSGs did peak at 189-196 last evening. I believe this was likely related to upwards titration of tube feeds and possibly due to delayed effects of IV Solu-medrol administration. * Impact now at goal rate of 65cc/hr. Pt remains intubated, sedated. Solu- medrol 40mg IV Q 24 hrs continues. * Will only make minor changes to today's insulin regimen : small increase in Novolog CF and CR doses 03/12 * Patient remains intubated, sedated. * Steroids continue at Solu-Medrol 40mg IV Q 24 hrs * Tube feeds (Impact 1.0) continue to be titrated upwards * BSGs well controlled over last 24 hrs. No further episodes of hypoglycemia noted. * Will titrate basal insulin dose downwards again today as BSGs have not climbed quickly with the addition of continuous tube feeds yesterday PLAN FOR INPATIENT GLYCEMIC CONTROL: * Basal insulin (decrease in dose) * DC Lantus at this time * Bolus insulin (small decrease in dose) * NovoLog per scale Q 4 hrs * Goal Range: Low 120 mg/dL - High 150 mg/dL * Correction Factor: 30 mg/dL/unit * Nutritional / Prandial insulin per carb ratio of 1 unit per 12 grams CHO administered in tube feeds * Reassess insulin needs with each step-down in steroid dose PLAN FOR DISCHARGE: * given his A1c, he will not likely require insulin on discharge if acute stressors resolve and steroids are stopped
[2019-03-15] MEDS: methylPREDNISolone 20 MG in SYRINGE 0 ML IV SCH (09:21)
--- NOTE | 2019-03-15 11:12 | Hospitalist Progress Note ---
Date of Service March 15, 2019 Assessment & Plan (1) On mechanically assisted ventilation: Required mechanical ventilation since yesterday due to increasing hypoxia and hypercapnia Now sedated on mechanical ventilation Remains ventilated and still not yet ready to be extubated Current management as per lean coach We will try to extubate today as discussed with lean coach (2) Acute respiratory failure with hypoxia: Secondary to COPD and complicated by Multifocal pneumonia as treated below Requiring BiPAP to maintain saturation and decreased CO2 level Appreciate lean coach input and recommendations The patient required intubation on 03/10 due to increasing hypoxia and hypercapnia Remains in stable on vent and stable (3) Sepsis: Presented with sepsis likely secondary to pneumonia Continue current antibiotic No fever and or increase in white count (4) Multifocal pneumonia: No increasing depression no increasing white countPossible healthcare associated pneumonia VS aspiration pneumonia COPD exacerbation, smoker Has been on intravenous Zosyn ,vancomycin and doxycycline Blood cultures-negative Sputum cultures-not collected Nasal MRSA swab-negative Solu-Medrol 40 mg every 8 hours and nebulized bronchodilators We will not get speech evaluation again Has chronic aspiration and the patient wants to eat orally Has been on mechanical ventilator and sedated Lungs seems to be clear on auscultation White count has been increasing May have to add another antibiotic if the condition persist without any improvement Encephalopathy secondary Sepsis Mental status appears to be back to baseline CT head negative for acute process Hyponatremia Likely hypovolemic Possible component of SIADH secondary to pneumonia Gentle IV fluids Sodium level is 131 on 02/10 9 Sodium 134 on 03/10 Sodium has been normalized Hypertension Reduce metoprolol to half his usual dose to prevent hypotension Esophageal cancer GERD History of upper GI bleed but none at this moment Hemoglobin stable Follow-up with GI Continue PPI PPI Abnormal CT findings per previous admission: There is a 9 mm spiculated appearing nodule in the left lower lobe. This is pathologically indeterminant but concerning for neoplasm. A 2-3 month follow-up examination is recommended in follow-up. 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 Schizophrenia Continue usual medications Nutrition Has been on nasogastric tube feeding DVT prophylaxis SCDs for now in light of recent upper GI bleed, esophageal cancer Disposition Lives in [facility] facility Has no family members and or POA He remains for full code as of now (5) Anemia: Seems to be an anemia of chronic disease Complicated by recent illness Hemoglobin dropped to 6.7 on 03/10 6 he will get 2 units of packed red blood transfusion today Hemoglobin is 8.8 after transfusion Hemoglobin is 9.3 on 03/13 Hemoglobin remains stable at more than 9 No family member and/or sales representative girls' apparel from [facility] are not available to discuss the case Subjective 03/09 The patient was seen and examined in ICU 73-year-old male with history of COPD, smoker, hypertension, recently diagnosed esophageal cancer, upper GI bleed, schizophrenia, presenting with confusion. Patient was recently admitted to [facility] for sepsis secondary to pneumonia. He was discharged on February 17, 2019. The patient was brought back to the emergency room for shortness of breath and cough. At present the patient was febrile at 40 F and hypoxic at 80%.Lactic acid and procalcitonin elevated. Complains to have some shortness of breath and weakness Denies any chest pain no palpitation, any abdominal pain nausea and vomiting 03/10 The patient was seen and examined in ICU overnight more short of breath which improved with bipap and morphine. this morning his breathing has improved his blood pressure was better overnight 03/11 Patient seen and examined today in ICU He required intubation yesterday due to worsening hypoxia and hypercapnia Remains on sedation 03/13 Late documentation today for 03/12 Required intubation and keeps intubated Requiring IV sedation 03/13 Patient has been examined in ICU Trial for extubation failed Has been getting less sedatives 03/14 The patient was seen and examined today in ICU He remains intubated So for that symptom extubation have been failed 03/15 The patient is seen and examined in ICU He has been on mechanical ventilator and now off sedatives Has been on CPAP now and will try to extubate sometime today if possible Review of Systems Respiratory: + dyspnea and + wheezing Neurologic: + generalized weakness Physical Exam Physical Exam: Remains intubated Constitutional: + ill appearing Eyes: PERRL, conjunctivae normal, anicteric sclerae ENMT: external ear and nose normal, oropharynx normal Neck: trachea midline, no thyromegaly Respiratory: + respiratory distress Auscultation: + diminished lung sounds (Otherwise clear) Cardiovascular: Rate/Rhythm: regular rate and regular rhythm Heart Sounds: normal S1 and normal S2 Gastrointestinal (Abdomen): Inspection/Auscultation: abdomen normal to inspection and normal bowel sounds Percussion/Palpation: abdomen soft; abdomen nontender Lymphatic: no cervical or axillary lymphadenopathy Results & Data Vital Signs (Past 12 Hours) Vital Signs Pulse Resp BP Pulse Ox 03/15/19 10:01 135 H 117/78 89 L 03/15/19 09:55 140 H 38 H 90 03/15/19 09:40 145 H 172/111 H 91 03/15/19 09:01 146 H 172/111 H 90 03/15/19 08:01 139 H 168/101 H 92 03/15/19 07:50 131 H 19 94 03/15/19 07:21 116 H 32 H 95 03/15/19 07:01 94 H 130/69 96 03/15/19 06:00 83 30 H 119/74 95 03/15/19 05:27 92 H 33 H 95 03/15/19 05:00 94 H 30 H 95/53 L 96 03/15/19 03:00 96 H 30 H 81/46 L 96 03/15/19 02:33 93 H 30 H 97 03/15/19 01:00 95 H 30 H 81/44 L 96 03/15/19 00:00 93 H 30 H 84/50 L 97 03/14/19 23:44 91 H 30 H 96 Laboratory Results Short CBC 03/15/19 Range/Units 04:49 WBC 15.52 H (4.8-10.8) K/uL Hgb 9.3 L (14.0-18.0) g/dL Hct 28.2 L (42-52) % Plt Count 442 H (130-400) K/uL BMP 03/14/19 03/15/19 20:35 04:49 Sodium 140 138 Potassium 4.8 4.7 Chloride 103 102 Carbon Dioxide 34 H 34 H BUN 18 22 H Creatinine 0.31 L 0.37 L Glucose 110 H 124 H Calcium 8.5 8.2 L Medications Administered Current Inpatient Medications Acetaminophen (Tylenol) 650 mg PO Q4H PRN PRN Reason: Pain or Fever Stop: 04/07/19 11:36 Benztropine Mesylate (Cogentin) 0.5 mg PO BID [facility] Stop: 04/07/19 20:59 Last Admin: 03/15/19 08:04 Dose: 0.5 mg Documented by: Dextrose (Dextrose 50%) 25 - 50 ml IV UD PRN; Protocol PRN Reason: Hypoglycemia Protocol Stop: 04/13/19 17:14 Docusate Sodium (Colace) 100 mg GT BID [facility] Stop: 04/11/19 10:59 Last Admin: 03/15/19 08:04 Dose: 100 mg Documented by: Enteral Nutritional Formula (Impact 1.0 Sergei) 1,000 ml OG UD [facility]; Protocol Stop: 04/10/19 09:59 Last Admin: 03/13/19 08:36 Dose: 1,000 ml Documented by: Famotidine (Pepcid) 20 mg OG BID [facility] Stop: 04/11/19 20:59 Last Admin: 03/15/19 08:04 Dose: 20 mg Documented by: Fentanyl Citrate (Fentanyl Citrate) 25 mcg IV ONE PRN PRN Reason: Pain Not Controlled by Drip Stop: 03/24/19 16:04 Glucagon (Glucagen) 1 mg IM UD PRN; Protocol PRN Reason: Hypoglycemia Protocol Stop: 04/13/19 17:14 Glucose (Glucose 40%) 15 - 30 gm PO UD PRN; Protocol PRN Reason: Hypoglycemia Protocol Stop: 04/13/19 17:14 Glucose (Dex4 Glucose) 4 - 8 tabs PO UD PRN; Protocol PRN Reason: Hypoglycemia Protocol Stop: 04/13/19 17:14 Heparin Sodium (Porcine) (Heparin Sodium (Porcine)) 5,000 units SQ Q8 [facility] Stop: 04/10/19 13:59 Last Admin: 03/15/19 05:34 Dose: 5,000 units Documented by: Piperacillin Sod/Tazobactam (Sod 3.375 gm/ Dextrose) 115 mls @ 28.75 mls/hr IV Q8H [facility]; Protocol Stop: 03/15/19 13:59 Last Infusion: 03/15/19 10:06 Dose: Infused Documented by: Fentanyl Citrate (Fentanyl Drip) 1,250 mcg in 250 mls @ 15 mls/hr IV .[id number] [facility]; Protocol Stop: 03/24/19 16:04 Last Titration: 03/15/19 09:55 Dose: 75 mcg/hr, 15 mls/hr Documented by: Propofol (Diprivan) 1,000 mg in 100 mls @ 12.348 mls/hr IV .Q8H6M PRN; Protocol PRN Reason: TITRATE Stop: 03/17/19 04:59 Last Titration: 03/15/19 11:09 Dose: 40 mcg/kg/min, 14.1 mls/hr Documented by: Methylprednisolone 20 mg/ (Syringe) 0.32 mls @ 1.5 mls/min IV DAILY [facility] Stop: 04/10/19 08:29 Last Admin: 03/15/19 09:21 Dose: 1.5 mls/min Documented by: Insulin Aspart (Novolog Flexpen) 0 units SC Q4 [facility] Stop: 04/10/19 11:59 Last Admin: 03/15/19 08:06 Dose: 3 units Documented by: Levalbuterol HCl (Xopenex 0.63 Mg/3 Ml Neb) 0.63 mg NEB Q6R [facility] Stop: 04/07/19 19:59 Last Admin: 03/15/19 07:19 Dose: 0.63 mg Documented by: Magnesium Oxide (Mag-Ox) 400 mg PO QAM [facility] Stop: 04/08/19 08:59 Last Admin: 03/15/19 08:04 Dose: 400 mg Documented by: Metoclopramide HCl (Reglan) 10 mg IV Q6H [facility] Stop: 04/07/19 21:59 Last Admin: 03/15/19 09:21 Dose: 10 mg Documented by: Miscellaneous (Remove Nicoderm Patch) 1 ea N/A HS [facility] Stop: 04/07/19 20:59 Last Admin: 03/14/19 20:51 Dose: 1 ea Documented by: Miscellaneous (Carbohydrates For Hypoglycemia) 15 - 30 gm PO UD PRN PRN Reason: Hypoglycemia Treatment Stop: 04/13/19 17:14 Miscellaneous Information (Consult) 1 ea N/A UD PRN PRN Reason: Consult Stop: 03/15/19 13:59 Miscellaneous Information (Consult Glycemic Management Pharmacy) 1 ea N/A UD PRN PRN Reason: Consult Stop: 04/08/19 16:42 Nicotine (Nicoderm Cq) 7 mg TD QAM [facility] Stop: 04/07/19 11:36 Last Admin: 03/15/19 08:04 Dose: 7 mg Documented by: Polyethylene Glycol (Miralax Powder Packet) 17 gm PO DAILY PRN PRN Reason: Constipation Stop: 04/12/19 08:11 Last Admin: 03/15/19 08:04 Dose: 17 gm Documented by: Potassium Chloride (Sujatha Ciel Elix) 10 meq PO BID [facility] Stop: 04/09/19 22:59 Last Admin: 03/15/19 08:07 Dose: 10 meq Documented by: Quetiapine Fumarate (Seroquel) 400 mg PO DAILY@1700 [facility] Stop: 04/08/19 16:59 Last Admin: 03/14/19 16:24 Dose: 400 mg Documented by: Risperidone (Risperdal) 2 mg PO BID [facility] Stop: 04/07/19 11:36 Last Admin: 03/15/19 08:04 Dose: 2 mg Documented by: Valproic Acid (Valproic Acid) 250 mg PO BID [facility] Stop: 04/09/19 22:59 Last Admin: 03/15/19 08:04 Dose: 250 mg Documented by:
[2019-03-15] MEDS: IMPACT LIQD 1.0 CAL 1,000 ML BAG OG SCH (16:24)
[2019-03-15] MEDS: QUETIAPINE FUMARATE 200 MG TAB PO SCH (16:25)
[2019-03-16] MEDS: INSULIN ASPART 100 UNITS/ML 3 ML PEN SC SCH ×7 (00:33→23:46)
[2019-03-16] MEDS: LEVALBUTEROL HCL 0.63 MG/3 ML NEB NEB SCH ×4 (01:47→19:38)
[2019-03-16] MEDS: fentaNYL DRIP 1,250 MCG/250 ML BAG IV SCH ×2 (02:22→07:09)
[2019-03-16 03:38] LABS: iSTAT Allen Test Pass; iSTAT Arterial Blood Gas HCO3 34 meg/L (19-24); iSTAT Arterial Blood Gas pCO2 53 mmHg (35-46); iSTAT Arterial Blood Gas pH 7.42 (7.35-7.45); iSTAT Carbon Dioxide 35 mEq/l (24-31); iSTAT FiO2 40 %; iSTAT Site R Radial
[2019-03-16] MEDS: METOCLOPRAMIDE HCL INJ 5 MG/ML 2 ML VIAL IV SCH ×2 (03:44→08:30)
[2019-03-16 04:35] LABS: Basophils # (auto) 0.01 K/uL (0-0.2); Basophils % (auto) 0.1 %; Eosinophils # (auto) 0.05 K/uL (0-0.5); Eosinophils % (auto) 0.4 %; Hemoglobin 9.1 g/dL (14.0-18.0); Immature Granulocytes # (auto) 0.12 K/uL (0.00-0.02); Immature Granulocytes % (auto) 0.9 %; Lymphocytes % (auto) 19.9 %; Mean Corpuscular Hgb Conc 32.5 g/dL (32-36); Mean Corpuscular Volume 80.7 fL (80-100); Mean Platelet Volume 9.6 fL (7.4-10.4); Monocytes # (auto) 1.23 K/uL (0.11-0.59); Monocytes % (auto) 9.1 %; Neutrophils # (auto) 9.43 K/uL (1.4-6.5); Neutrophils % (auto) 69.6 %; Platelet Count 489 K/uL (130-400); Red Blood Count 3.47 M/uL (4.7-6.1); White Blood Count 13.54 K/uL (4.8-10.8)
[2019-03-16 04:56] LABS: Alanine Aminotransferase 13 U/L (12-78); Albumin Level 1.8 gm/dl (3.4-5.0); Aspartate Aminotransferase 12 U/L (15-37); BUN Creatinine Ratio 67.1 (10-20); Bilirubin Direct < 0.1 mg/dl (0-0.2); Blood Urea Nitrogen 26 mg/dl (7-18); Calcium 8.3 mg/dl (8.5-10.1); Carbon Dioxide 34 mmol/L (21-32); Chloride 102 mmol/L (98-107); Creatinine Clr Calc Pharmacy 150.1 ml/min; Est GFR (Non-African American) 120.8; Glucose 137 mg/dl (70-99); Potassium 4.6 mmol/L (3.5-5.1); Sodium 137 mmol/L (136-145)
[2019-03-16 04:59] LABS: Alkaline Phosphatase 57 U/L (45-117); Bilirubin,Total 0.2 mg/dl (0.2-1); Total Protein 5.2 gm/dl (6.4-8.2)
[2019-03-16] MEDS: HEPARIN SOD 5,000 UNIT/0.5 ML VIAL SQ SCH ×3 (06:21→21:14)
[2019-03-16] MEDS: PROPOFOL 1,000 MG/100 ML VIAL IV PRN (06:22)
--- NOTE | 2019-03-16 06:47 | XRay Report ---
XR chest 1V portable CLINICAL HISTORY: f/u dyspnea COMPARISON STUDY: 03/15/2018 FINDINGS: Endotracheal tube 3 cm below the raj. Findings of congestive failure versus bilateral pa renchymal infiltrative change stable/or slightly improved. Pulmonary apices are clear. Small bilatera l pleural effusions. IMPRESSION: 1. Endotracheal tube 3 cm with a chronic. 2. Nasogastric tube inferior to the diaphragm most likely within the stomach. 3. Components of congestive failure generally stable to perhaps minimally improved. The above report was generated using voice recognition software. It may contain grammatical, syntax or spelling errors. Electronically signed by: Ron Friend M.D. 03/16/2019 6:46 AM
[2019-03-16] MEDS: MAGNESIUM OXIDE 400 MG TAB PO SCH (08:04)
[2019-03-16] MEDS: risperiDONE 2 MG TABLET PO SCH ×2 (08:05→21:12)
[2019-03-16] MEDS: FAMOTIDINE 20 MG TAB OG SCH ×2 (08:05→21:13)
[2019-03-16] MEDS: BENZTROPINE MESYLATE 0.5 MG TAB PO SCH ×2 (08:05→21:01)
[2019-03-16] MEDS: DOCUSATE SODIUM SYRUP 100 MG/10 ML UDC GT SCH ×2 (08:05→21:14)
[2019-03-16] MEDS: NICOTINE 7 MG/24 HR TDSY TD SCH (08:22)
[2019-03-16] MEDS: POTASSIUM CHLORIDE 20 MEQ/15 ML UDC PO SCH ×2 (08:22→21:10)
[2019-03-16] MEDS: methylPREDNISolone 20 MG in SYRINGE 0 ML IV SCH (08:23)
[2019-03-16] MEDS ORDERED: fentaNYL citrate 100 MCG/2 ML VIAL IV PRN (08:23)
[2019-03-16] MEDS: VALPROIC ACID SOLN 250 MG/5 ML UDC PO SCH ×2 (08:23→21:13)
--- NOTE | 2019-03-16 09:01 | Critical Care Progress Note ---
Date of Service March 16, 2019 Assessment & Plan (1) Acute respiratory failure with hypoxia: Omari Bailey is a 73-year-old male with a past medical history of esophageal cancer, pneumonia, tobacco abuse, COPD, schizophrenia, history of GI bleed, hiatal hernia, and noncompliance with SAMPLING THEORY TEACHER diet/texture recommendations who presented to the hospital on 03/08/2019 with fever and shortness of breath. He was febrile on admission with lactic acidosis and hypoxic respiratory failure, ICU was consulted for acute respiratory failure. Neuro - [facility] ICU: Positive Sedation/analgesia On fentanyl drip and propofol with ETT. Continuous fentanyl stopped. APAP 650 mg p.o. every 4 hours as needed Fentanyl 50-100 mcg IV every 2 hour as needed History of schizophrenia Continue risperidone 2 mg p.o. twice daily Continue valproic acid 250 mg p.o. twice daily. Note subtherapeutic levels today (33) Cardiac - Sinus tachycardia to 130s with hypertension Received furosemide 40 mg IV this morning with nearly 5 L urine output. Concern for overdiuresis, will replace 1 L LR bolus On metoprolol succinate 25 mg at home. Short-term metoprolol tartrate to establish blood pressure control requirements at this time. Has received metoprolol tartrate 2.5 mg x 2, 5 mg x 2 this morning with partial response. Tachycardia increased over the course of the morning, however had not been receiving pain control since his fentanyl drip was discontinued at 1030. Suspect some of his tachycardia and hypertension has a pain control element. Will treat as above in addition to giving a 50 mcg fentanyl dose Respiratory - Acute hypoxic respiratory failure, ARDS secondary to aspiration pneumonia versus pneumonitis Treated with empiric Vanco, Zosyn, doxycycline on admission. Completed 7 days of Zosyn () Chest x-ray this morning shows bilateral parenchymal infiltrate similar to previous, small bilateral pleural effusions suggestive of CHF. No lobar consolidation or signs of worsening pneumonia present. Klifl-[id number]-[id number] ultrasound this morning showed interstitial edema without pleural effusion. Trial of extubation at this morning. Respiratory rate 2230, SPO2 greater than 94% on oxygen mask 5 L. Repeat ABG shows mild metabolic alkalosis (pH 7.5, PCO2 44, PO2 83, HCO3 34, base excess 11). Continue to follow respiratory status and wean oxygen to goal SPO2 greater than 90%. GI - Esophageal cancer with multiple SAMPLING THEORY TEACHER evaluations in the past. 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 - Eisenberg catheter in place. 1591 mL in, 6145 out with 4.19 cc/KG/HR following furosemide 40 mg this morning ENDO - Adequate glycemic control on ICU protocol, serum glucose [id number] last 24 hours. Continue sliding scale aspart. History of high-dose steroid use Was previously on methylprednisolone 40 mg every 8 hours , decreased to 40 mg daily on 03/10, 20 mg daily on 03/15 Prednisone taper as follows: 20 mg x 5 days, followed by 15 mg x 4 days, followed by 10 mg x 4 days, followed by 5 mg x 4 days. HEME - Chronic normocytic normochromic anemia. Hemoglobin stable at 9.1 likely 2/2 chronic disease Monitor for clinical signs of bleeding while on heparin ID - Aspiration pneumonia treated with 7 days of Zosyn as above. No signs of ongoing infection. Blood cultures 03/08 with no growth x2 Afebrile INTEGUMENTARY - No new, active lesions at this time. Routine ulcer prophylaxis LINES/IV ACCESS - PIVs intact. DVT PROPHYLAXIS - Heparin 5000 units 3 times daily Thank you for allowing us to be part of this patient's care. Please refer to Dr. Griffith's documentation for any further recommendations. Supervising Physician Co-Signing Physician Notes Reason Critically Ill: 73-year-old male with recurrent aspiration pneumonia status post acute respiratory distress syndrome PLAN: Neuro: Sedation and analgesia - Stop continuous fentanyl convert to intermittent bolus Schizophrenia -Discontinue scheduled Reglan -Check Depakote and ammonia level Resp: Aspiration pneumonia:Completed 7 days Zosyn Acute respiratory distress syndrome: Improved Infiltrate right chest x-ray consistent with probable pleural effusion - Follow-up [id number]-it-[id number] ultrasound -Findings consistent with interstitial edema, no pleural effusion noted - We will proceed with trial of extubation as P to F: 202, RSBI 14 CV: Tachycardia: Resolved Fluids/Renal: Type b profile consistent with interstitial edema - Lasix40 mg x 1 ID: Aspiration pneumonia: Improved - Cultures negative, no bronchoscopy specimen GI/Nutrition: Esophageal cancer Recurrent aspiration - Patient noncompliant with recommendations, always taking fluids Not following dietary texture recommendations either Constipation -Prune juice and mineral oil Tube feeding formulation:Impacted 65 - Corsafe placement given recurrent aspiration events Heme: Anemia of chronic disease Reported history of gastrointestinal hemorrhage - Pepcid prophylaxis DVT prophylaxis: Heparin 5000 3 times daily Endocrine: ICU hyperglycemia protocol - Insulin sliding scale High-dose steroid use -Will instill long-term taper: 20 mg x 5 days then 15 x 4 days then 10 x 4 days then 5 x 4 days Vascular access: Peripheral IVs Code Status: Full code, patient is been his medical decision-maker, procedures will require to physician consent. Dr. Em myself have consented the patient for a thoracentesis secondary to acute respiratory failure status post cards in order to optimize the patient for successful liberation from mechanical ventilation. I have personally spent 60 minutes of critical care time in the direct management of this patient. This is a life/limb threatening event. This includes time spent evaluating patient, direct bedside care, chart review, placing orders, interpretation of diagnostic studies, discussion with consultants, patient, and/or family members regarding treatment decisions, as well as other required patient management activities. This time is exclusive of all separately billable procedures, and teaching time and separate from and in addition to any other critical care service time. Dr. Gandhi was resident physician during care of patient. I separately evaluated patient for desouza portions of the history and the exam. I was present during the critical portion of medical decision making, and I discussed the case with the resident. I generally agree with the findings and plan. Subjective Mr. Bailey is seen at bedside without family present this morning. He is currently intubated, lightly sedated. He is able to follow commands, and squeezes left and right hand when instructed. When asked to hold up 2 fingers with his left hand he slightly raises his hand, has difficulty making the actual hand gesture. Further history limited by ETT. Review of Systems Review of Systems: Unobtainable due to endotracheal tube Physical Exam Physical Exam: General: Sedated, orientation limited by ETT. Cooperative. HEENT: Atraumatic, normocephalic. Pulm: On ventilation volume AC 25/5, 0.4. SPO2 greater than 94%. Diminished lung sounds, slight crackles at the bases bilaterally. Cardiac: RRR, -mrg. Radial pulses intact and symmetrical. Abdominal: Nontender, nondistended, soft. BS present. Extremity: No distal extremity edema. PT and radial pulses intact and symmetrical. Results & Data Vital Signs (Past 12 Hours) Vital Signs Pulse Pulse Resp BP Pulse Ox 03/16/19 07:13 105 H 105 H 22 96 03/16/19 06:00 103 H 17 89/48 L 95 03/16/19 05:30 106 H 23 96 03/16/19 05:00 108 H 16 94/49 L 95 03/16/19 03:30 22 03/16/19 03:00 97 H 20 87/47 L 94 03/16/19 02:30 96 H 30 H 98 03/16/19 02:00 96 H 22 82/48 L 95 03/16/19 01:00 89 30 H 83/48 L 94 03/16/19 00:00 83 30 H 87/52 L 96 03/15/19 23:20 89 30 H 93 03/15/19 23:00 91 H 30 H 90/54 L 94 03/15/19 22:00 92 H 30 H 90/53 L 94 03/15/19 21:00 82 30 H 97/60 L 94 Laboratory Results Abnormal lab results 03/15/19 03/15/19 03/16/19 Range/Units 16:18 20:07 00:32 WBC (4.8-10.8) K/uL RBC (4.7-6.1) M/uL Hgb (14.0-18.0) g/dL Hct (42-52) % RDW Std Deviation (36.4-46.3) fL RDW Coeff of Migel (11.5-14.5) % Plt Count (130-400) K/uL Immature Gran # (Auto) (0.00-0.02) K/uL Neut # (Auto) (1.4-6.5) K/uL [place] # (Auto) (0.11-0.59) K/uL POC pH (7.35-7.45) POC pCO2 (35-46) mmHg POC HCO3 (19-24) hamlet/L POC Total CO2 (24-31) mEq/l POC Base Excess (-9-1.8) hamlet/L POC ABG O2 Sat (90-95) % Carbon Dioxide (21-32) mmol/L Anion Gap (3-11) BUN (7-18) mg/dl Creatinine (0.6-1.4) mg/dl BUN/Creatinine Ratio (10-20) Glucose (70-99) mg/dl POC Glucose 124 H 101 H 108 H (70-99) Calcium (8.5-10.1) mg/dl AST (15-37) U/L Ammonia (11-32) umol/L Total Protein (6.4-8.2) gm/dl Albumin (3.4-5.0) gm/dl Valproic Acid (50-100) mcg/ml 03/16/19 03/16/19 03/16/19 Range/Units 03:22 03:46 04:09 WBC 13.54 H (4.8-10.8) K/uL RBC 3.47 L (4.7-6.1) M/uL Hgb 9.1 L (14.0-18.0) g/dL Hct 28.0 L (42-52) % RDW Std Deviation 55.0 H (36.4-46.3) fL RDW Coeff of Migel 19.0 H (11.5-14.5) % Plt Count 489 H (130-400) K/uL Immature Gran # (Auto) 0.12 H (0.00-0.02) K/uL Neut # (Auto) 9.43 H (1.4-6.5) K/uL [place] # (Auto) 1.23 H (0.11-0.59) K/uL POC pH (7.35-7.45) POC pCO2 53 H (35-46) mmHg POC HCO3 34 H (19-24) hamlet/L POC Total CO2 35 H (24-31) mEq/l POC Base Excess 9.0 H (-9-1.8) hamlet/L POC ABG O2 Sat 96.0 H (90-95) % Carbon Dioxide (21-32) mmol/L Anion Gap (3-11) BUN (7-18) mg/dl Creatinine (0.6-1.4) mg/dl BUN/Creatinine Ratio (10-20) Glucose (70-99) mg/dl POC Glucose 155 H (70-99) Calcium (8.5-10.1) mg/dl AST (15-37) U/L Ammonia (11-32) umol/L Total Protein (6.4-8.2) gm/dl Albumin (3.4-5.0) gm/dl Valproic Acid (50-100) mcg/ml 03/16/19 03/16/19 03/16/19 Range/Units 04:09 07:57 09:32 WBC (4.8-10.8) K/uL RBC (4.7-6.1) M/uL Hgb (14.0-18.0) g/dL Hct (42-52) % RDW Std Deviation (36.4-46.3) fL RDW Coeff of Migel (11.5-14.5) % Plt Count (130-400) K/uL Immature Gran # (Auto) (0.00-0.02) K/uL Neut # (Auto) (1.4-6.5) K/uL [place] # (Auto) (0.11-0.59) K/uL POC pH (7.35-7.45) POC pCO2 (35-46) mmHg POC HCO3 (19-24) hamlet/L POC Total CO2 (24-31) mEq/l POC Base Excess (-9-1.8) hamlet/L POC ABG O2 Sat (90-95) % Carbon Dioxide 34 H (21-32) mmol/L Anion Gap 1.0 L (3-11) BUN 26 H (7-18) mg/dl Creatinine 0.39 L (0.6-1.4) mg/dl BUN/Creatinine Ratio 67.1 H (10-20) Glucose 137 H (70-99) mg/dl POC Glucose 133 H (70-99) Calcium 8.3 L (8.5-10.1) mg/dl AST 12 L (15-37) U/L Ammonia 39.0 H (11-32) umol/L Total Protein 5.2 L (6.4-8.2) gm/dl Albumin 1.8 L (3.4-5.0) gm/dl Valproic Acid (50-100) mcg/ml 03/16/19 03/16/19 03/16/19 Range/Units 09:32 12:14 12:16 WBC (4.8-10.8) K/uL RBC (4.7-6.1) M/uL Hgb (14.0-18.0) g/dL Hct (42-52) % RDW Std Deviation (36.4-46.3) fL RDW Coeff of Migel (11.5-14.5) % Plt Count (130-400) K/uL Immature Gran # (Auto) (0.00-0.02) K/uL Neut # (Auto) (1.4-6.5) K/uL [place] # (Auto) (0.11-0.59) K/uL POC pH 7.50 H (7.35-7.45) POC pCO2 (35-46) mmHg POC HCO3 34 H (19-24) hamlet/L POC Total CO2 35 H (24-31) mEq/l POC Base Excess 11.0 H (-9-1.8) hamlet/L POC ABG O2 Sat 96.0 H (90-95) % Carbon Dioxide (21-32) mmol/L Anion Gap (3-11) BUN (7-18) mg/dl Creatinine (0.6-1.4) mg/dl BUN/Creatinine Ratio (10-20) Glucose (70-99) mg/dl POC Glucose 145 H (70-99) Calcium (8.5-10.1) mg/dl AST (15-37) U/L Ammonia (11-32) umol/L Total Protein (6.4-8.2) gm/dl Albumin (3.4-5.0) gm/dl Valproic Acid 33 L (50-100) mcg/ml Medications Administered Current Inpatient Medications Acetaminophen (Tylenol) 650 mg PO Q4H PRN PRN Reason: Pain or Fever Stop: 04/07/19 11:36 Last Admin: 03/16/19 12:32 Dose: 650 mg Documented by: Benztropine Mesylate (Cogentin) 0.5 mg PO BID [facility] Stop: 04/07/19 20:59 Last Admin: 03/16/19 08:05 Dose: 0.5 mg Documented by: Dextrose (Dextrose 50%) 25 - 50 ml IV UD PRN; Protocol PRN Reason: Hypoglycemia Protocol Stop: 04/13/19 17:14 Docusate Sodium (Colace) 100 mg GT BID [facility] Stop: 04/11/19 10:59 Last Admin: 03/16/19 08:05 Dose: 100 mg Documented by: Enteral Nutritional Formula (Impact 1.0 Sergei) 1,000 ml OG UD [facility]; Protocol Stop: 04/10/19 09:59 Last Admin: 03/15/19 16:24 Dose: 1,000 ml Documented by: Famotidine (Pepcid) 20 mg OG BID [facility] Stop: 04/11/19 20:59 Last Admin: 03/16/19 08:05 Dose: 20 mg Documented by: Fentanyl Citrate (Fentanyl Citrate) 100 mcg IV Q2H PRN PRN Reason: Severe Pain (7,8,9,10) Stop: 03/30/19 08:22 Fentanyl Citrate (Fentanyl Citrate) 50 mcg IV Q2H PRN PRN Reason: Moderate Pain (4,5,6) Stop: 03/30/19 08:22 Last Admin: 03/16/19 14:10 Dose: 50 mcg Documented by: Glucagon (Glucagen) 1 mg IM UD PRN; Protocol PRN Reason: Hypoglycemia Protocol Stop: 04/13/19 17:14 Glucose (Glucose 40%) 15 - 30 gm PO UD PRN; Protocol PRN Reason: Hypoglycemia Protocol Stop: 04/13/19 17:14 Glucose (Dex4 Glucose) 4 - 8 tabs PO UD PRN; Protocol PRN Reason: Hypoglycemia Protocol Stop: 04/13/19 17:14 Heparin Sodium (Porcine) (Heparin Sodium (Porcine)) 5,000 units SQ Q8 [facility] Stop: 04/10/19 13:59 Last Admin: 03/16/19 14:10 Dose: 5,000 units Documented by: Propofol (Diprivan) 1,000 mg in 100 mls @ 0 mls/hr IV .Q0M PRN; Protocol PRN Reason: TITRATE Stop: 03/17/19 04:59 Last Titration: 03/16/19 11:00 Dose: 0 mcg/kg/min, 0 mls/hr Documented by: Lactated Ringer's (Lr) 1,000 mls @ 999 mls/hr IV .Q1H1M ONE Stop: 03/16/19 15:19 Last Admin: 03/16/19 14:21 Dose: 999 mls/hr Documented by: Insulin Aspart (Novolog Flexpen) 0 units SC Q4 [facility] Stop: 04/10/19 11:59 Last Admin: 03/16/19 12:28 Dose: Not Given Documented by: Levalbuterol HCl (Xopenex 0.63 Mg/3 Ml Neb) 0.63 mg NEB Q6R [facility] Stop: 04/07/19 19:59 Last Admin: 03/16/19 13:56 Dose: 0.63 mg Documented by: Magnesium Oxide (Mag-Ox) 400 mg PO QAM [facility] Stop: 04/08/19 08:59 Last Admin: 03/16/19 08:04 Dose: 400 mg Documented by: Miscellaneous (Remove Nicoderm Patch) 1 ea N/A HS [facility] Stop: 04/07/19 20:59 Last Admin: 03/15/19 21:43 Dose: 1 ea Documented by: Miscellaneous (Carbohydrates For Hypoglycemia) 15 - 30 gm PO UD PRN PRN Reason: Hypoglycemia Treatment Stop: 04/13/19 17:14 Miscellaneous Information (Consult Glycemic Management Pharmacy) 1 ea N/A UD PRN PRN Reason: Consult Stop: 04/08/19 16:42 Nicotine ([facility] Cq) [facility]: 04/07/19 11:36 Last Admin: 03/16/19 08:22 Dose: Not Given Documented by: Polyethylene Glycol (Miralax Powder Packet) 17 gm PO DAILY PRN PRN Reason: Constipation Stop: 04/12/19 08:11 Last Admin: 03/15/19 08:04 Dose: 17 gm Documented by: Potassium Chloride (Sujatha Ciel Elix) 10 meq PO BID [facility] Stop: 04/09/19 22:59 Last Admin: 03/16/19 08:22 Dose: 10 meq Documented by: Prednisone (Prednisone) 20 mg PO DAILY [facility]; Taper Stop: 04/03/19 08:59 Quetiapine Fumarate (Seroquel) 400 mg PO DAILY@1700 [facility] Stop: 04/08/19 16:59 Last Admin: 03/15/19 16:25 Dose: 400 mg Documented by: Risperidone (Risperdal) 2 mg PO BID [facility] Stop: 04/07/19 11:36 Last Admin: 03/16/19 08:05 Dose: 2 mg Documented by: Valproic Acid (Valproic Acid) 250 mg PO BID [facility] Stop: 04/09/19 22:59 Last Admin: 03/16/19 08:23 Dose: 250 mg Documented by: Resident Activity Tracking Resident Involvement: Resident Care Provided Care Provided: Adult Hospital Medicine
[2019-03-16] MEDS ORDERED: FUROSEMIDE 40 MG in SYRINGE 0 ML IV ONE ×2 (09:20→09:30)
--- NOTE | 2019-03-16 09:41 | XRay Report ---
XR KUB/Abdomen 1 view CLINICAL HISTORY: Constipation COMPARISON STUDY: 06/23/2016 FINDINGS: The study was performed in a portable fashion. There is a nasogastric tube projected over t he stomach. There are gas-filled loops of large and small bowel. There are no transition zones indica te bowel obstruction. There is no evidence for extensive fecal retention. A radiopaque wire/lead proj ects over the rectum/bladder. IMPRESSION: 1. Nasogastric tube within the stomach 2. Mild gaseous prominence the bowel possible secondary to an ileus. No conventional radiographic helen dence of bowel obstruction Electronically signed by: Frankie Vela M.D. 03/16/2019 9:39 AM
--- NOTE | 2019-03-16 09:52 | XRay Report ---
XR KUB/Abdomen 1 view CLINICAL HISTORY: Confirm Core Safe placement tube position COMPARISON STUDY: Same date 9:22 AM FINDINGS: Core safe catheter is now within the mid stomach. Nasogastric tube remains within the mid s tomach. IMPRESSION: Interval placement of a feeding tube catheter to the mid stomach. Pre-existing nasogastr ic tube within the mid stomach. The above report was generated using voice recognition software. It may contain grammatical, syntax or spelling errors. Electronically signed by: Ron Friend M.D. 03/16/2019 9:51 AM
[2019-03-16 09:57] LABS: INR 1.1 (0.9-1.1); Prothrombin Time 10.9 Seconds (9.0-12.0)
[2019-03-16] MEDS: MINERAL OIL 30 ML UDC PO ONE ×2 (10:16→13:14)
[2019-03-16] MEDS ORDERED: METOPROLOL TARTRATE 1 MG/ML VIAL IV ONE (11:32)
[2019-03-16] MEDS ORDERED: METOPROLOL TARTRATE 1 MG/ML VIAL IV STA ×4 (12:02→22:05)
--- NOTE | 2019-03-16 12:26 | Pharmacy Report ---
Pharmacy Glycemic Short Note 2 - Date of Service March 16, 2019 - Glycemic Short BSG Results (Last 24 hours): 03/15/19 03/15/19 03/16/19 16:18 20:07 00:32 Glucose POC Glucose 124 H 101 H 108 H 03/16/19 03/16/19 03/16/19 03:46 04:09 07:57 Glucose 137 H POC Glucose 155 H 133 H 03/16/19 12:16 Glucose POC Glucose 145 H OUTPATIENT ANTIDIABETIC REGIMEN: * N/A (no prior dx of DM) * A1c = 6.0% 03/11/19 (consistent w/ "pre-diabetes") ASSESSMENT: 03/16 * 11 units given over last 24 hours * BSGs at goal, currently novolog ordered without basal insulin * Will continue current regimen for now * Pt extubated this AM, with transition to prednisone taper 03/15 * 18 units given over last 24 hrs * BSGs again at goal * BSGs are trending a little lower over last 12 hrs * Will dc Lantus order at this time and rely on Novolog in alone for next 24 hrs * Pt remains intubated this AM and looks as though they may not be extubated today. Tube feeds continue at goal. Solu-medrol continues at same dose. 03/14 * 26 units given in last 24 hrs * All BSGs have been at goal * Patient remains intubated, sedated, with Solu-Medrol at same dosage. * There may be plans to attempt extubation today * One BSG did drop to 104 this AM, tube feeds were not being held prior to this. This does not fit the overall pattern of prior BSGs with current stressors, however decrease in BSG may be related to HS dose of Lantus 6 units. Will decrease Lantus dose by ~ 50% as a result and continue Novolog unchanged 03/13 * Received 31 units of insulin over last 24 hrs * Most BSGs at goal over the last 24 hours. BSGs did peak at 189-196 last evening. I believe this was likely related to upwards titration of tube feeds and possibly due to delayed effects of IV Solu-medrol administration. * Impact now at goal rate of 65cc/hr. Pt remains intubated, sedated. Solu- medrol 40mg IV Q 24 hrs continues. * Will only make minor changes to today's insulin regimen : small increase in Novolog CF and CR doses 5/2 * Patient remains intubated, sedated. * Steroids continue at Solu-Medrol 40mg IV Q 24 hrs * Tube feeds (Impact 1.0) continue to be titrated upwards * BSGs well controlled over last 24 hrs. No further episodes of hypoglycemia noted. * Will titrate basal insulin dose downwards again today as BSGs have not climbed quickly with the addition of continuous tube feeds yesterday PLAN FOR INPATIENT GLYCEMIC CONTROL: * Basal insulin (decrease in dose) * DC Lantus at this time * Bolus insulin (small decrease in dose) * NovoLog per scale Q 4 hrs * Goal Range: Low 120 mg/dL - High 150 mg/dL * Correction Factor: 30 mg/dL/unit * Nutritional / Prandial insulin per carb ratio of 1 unit per 15 grams CHO administered in tube feeds * Reassess insulin needs with each step-down in steroid dose PLAN FOR DISCHARGE: * given his A1c, he will not likely require insulin on discharge if acute stressors resolve and steroids are stopped
[2019-03-16 12:28] LABS: iSTAT Allen Test Pass; iSTAT Arterial Blood Gas HCO3 34 meg/L (19-24); iSTAT Arterial Blood Gas pCO2 44 mmHg (35-46); iSTAT Carbon Dioxide 35 mEq/l (24-31); iSTAT Site L Radial
[2019-03-16] MEDS: ACETAMINOPHEN 325 MG TAB PO PRN (12:32)
--- NOTE | 2019-03-16 12:54 | Hospitalist Progress Note ---
Date of Service March 16, 2019 Assessment & Plan (1) On mechanically assisted ventilation: Required mechanical ventilation since yesterday due to increasing hypoxia and hypercapnia Now sedated on mechanical ventilation Remains ventilated and still not yet ready to be extubated Current management as per transitional living specialist We will try to extubate today as discussed with transitional living specialist May have pleural effusion and will try to do a thoracentesis today by the transitional living specialist Try for extubation following that (2) Acute respiratory failure with hypoxia: Secondary to COPD and complicated by Multifocal pneumonia as treated below Requiring BiPAP to maintain saturation and decreased CO2 level Appreciate transitional living specialist input and recommendations The patient required intubation on 03/10 due to increasing hypoxia and hypercapnia Remains in stable on vent and stable Management as per transitional living specialist (3) Sepsis: Presented with sepsis likely secondary to pneumonia Continue current antibiotic No fever and or increase in white count Antibiotic course is done (4) Multifocal pneumonia: No increasing depression no increasing white countPossible healthcare associated pneumonia VS aspiration pneumonia COPD exacerbation, smoker Has been on intravenous Zosyn ,vancomycin and doxycycline Blood cultures-negative Sputum cultures-not collected Nasal MRSA swab-negative Solu-Medrol 40 mg every 8 hours and nebulized bronchodilators We will not get speech evaluation again Has chronic aspiration and the patient wants to eat orally Has been on mechanical ventilator and sedated Lungs seems to be clear on auscultation White count has been increasing May have to add another antibiotic if the condition persist without any improvement Encephalopathy secondary Sepsis Mental status appears to be back to baseline CT head negative for acute process Hyponatremia Likely hypovolemic Possible component of SIADH secondary to pneumonia Gentle IV fluids Sodium level is 131 on 02/10 9 Sodium 134 on 03/10 Sodium has been normalized Hypertension Reduce metoprolol to half his usual dose to prevent hypotension Esophageal cancer GERD History of upper GI bleed but none at this moment Hemoglobin stable Follow-up with GI Continue PPI PPI Abnormal CT findings per previous admission: There is a 9 mm spiculated appearing nodule in the left lower lobe. This is pathologically indeterminant but concerning for neoplasm. A 2-3 month follow-up examination is recommended in follow-up. 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 Schizophrenia Continue usual medications Nutrition Has been on nasogastric tube feeding DVT prophylaxis SCDs for now in light of recent upper GI bleed, esophageal cancer Disposition Lives in [facility] facility Has no family members and or POA He remains for full code as of now (5) Anemia: Seems to be an anemia of chronic disease Complicated by recent illness Hemoglobin dropped to 6.7 on 03/10 6 he will get 2 units of packed red blood transfusion today Hemoglobin is 8.8 after transfusion Hemoglobin is 9.3 on 03/13 Hemoglobin remains stable at more than 9 No family member and/or retail service representative from [facility] are not available to discuss the case Subjective 03/09 The patient was seen and examined in ICU 73-year-old male with history of COPD, smoker, hypertension, recently diagnosed esophageal cancer, upper GI bleed, schizophrenia, presenting with confusion. Patient was recently admitted to [facility] for sepsis secondary to pneumonia. He was discharged on February 17, 2019. The patient was brought back to the emergency room for shortness of breath and cough. At present the patient was febrile at 40 F and hypoxic at 80%.Lactic acid and procalcitonin elevated. Complains to have some shortness of breath and weakness Denies any chest pain no palpitation, any abdominal pain nausea and vomiting 03/10 The patient was seen and examined in ICU overnight more short of breath which improved with bipap and morphine. this morning his breathing has improved his blood pressure was better overnight 03/11 Patient seen and examined today in ICU He required intubation yesterday due to worsening hypoxia and hypercapnia Remains on sedation 03/13 Late documentation today for 5/2 Required intubation and keeps intubated Requiring IV sedation 03/13 Patient has been examined in ICU Trial for extubation failed Has been getting less sedatives 03/14 The patient was seen and examined today in ICU He remains intubated So for that symptom extubation have been failed 03/15 The patient is seen and examined in ICU He has been on mechanical ventilator and now off sedatives Has been on CPAP now and will try to extubate sometime today if possible 03/16 The patient was seen and examined in ICU He remains intubated and try to extubate has failed so far Off intravenous sedatives Review of Systems Respiratory: + dyspnea and + wheezing Neurologic: + generalized weakness Physical Exam Physical Exam: No apparent distress at rest Constitutional: + ill appearing Eyes: PERRL, conjunctivae normal, anicteric sclerae ENMT: external ear and nose normal, oropharynx normal Neck: trachea midline, no thyromegaly Respiratory: + respiratory distress Auscultation: + diminished lung sounds (Otherwise clear) Cardiovascular: Rate/Rhythm: regular rate and regular rhythm Heart Sounds: normal S1 and normal S2 Gastrointestinal (Abdomen): Inspection/Auscultation: abdomen normal to inspection and normal bowel sounds Percussion/Palpation: abdomen soft; abdomen nontender Neurologic: Remains sedated on vent Lymphatic: no cervical or axillary lymphadenopathy Results & Data Vital Signs (Past 12 Hours) Vital Signs Pulse Pulse Resp BP Pulse Ox 03/16/19 12:31 117 H 22 168/107 H 89 L 03/16/19 12:26 120 H 157/110 H 03/16/19 12:12 120 H 23 157/110 H 95 03/16/19 12:01 131 H 20 150/100 H 94 03/16/19 12:00 124 H 20 94 03/16/19 11:39 116 H 160/97 H 94 03/16/19 11:31 125 H 173/107 H 92 03/16/19 11:24 139 H 93 03/16/19 11:01 131 H 146/92 H 93 03/16/19 10:31 124 H 150/85 H 92 03/16/19 10:01 115 H 114/63 91 03/16/19 09:31 120 H 134/76 91 03/16/19 09:01 115 H 134/78 93 03/16/19 08:31 115 H 124/79 96 03/16/19 08:08 115 H 12 96 03/16/19 08:01 118 H 138/76 97 03/16/19 07:31 105 H 102/56 L 95 03/16/19 07:13 105 H 105 H 22 96 03/16/19 07:01 105 H 104/61 95 03/16/19 06:00 103 H 17 89/48 L 95 03/16/19 05:30 106 H 23 96 03/16/19 05:00 108 H 16 94/49 L 95 03/16/19 03:30 22 03/16/19 03:00 97 H 20 87/47 L 94 03/16/19 02:30 96 H 30 H 98 03/16/19 02:00 96 H 22 82/48 L 95 03/16/19 01:00 89 30 H 83/48 L 94 Laboratory Results Short CBC 03/16/19 Range/Units 04:09 WBC 13.54 H (4.8-10.8) K/uL Hgb 9.1 L (14.0-18.0) g/dL Hct 28.0 L (42-52) % Plt Count 489 H (130-400) K/uL BMP 03/16/19 04:09 Sodium 137 Potassium 4.6 Chloride 102 Carbon Dioxide 34 H BUN 26 H Creatinine 0.39 L Glucose 137 H Calcium 8.3 L Liver Function 03/16/19 Range/Units 04:09 Total Bilirubin 0.2 (0.2-1) mg/dl Direct Bilirubin < 0.1 (0-0.2) mg/dl AST 12 L (15-37) U/L ALT 13 (12-78) U/L Alkaline Phosphatase 57 (45-117) U/L Albumin 1.8 L (3.4-5.0) gm/dl Medications Administered Current Inpatient Medications Acetaminophen (Tylenol) 650 mg PO Q4H PRN PRN Reason: Pain or Fever Stop: 04/07/19 11:36 Last Admin: 03/16/19 12:32 Dose: 650 mg Documented by: Benztropine Mesylate (Cogentin) 0.5 mg PO BID [facility] Stop: 04/07/19 20:59 Last Admin: 03/16/19 08:05 Dose: 0.5 mg Documented by: Dextrose (Dextrose 50%) 25 - 50 ml IV UD PRN; Protocol PRN Reason: Hypoglycemia Protocol Stop: 04/13/19 17:14 Docusate Sodium (Colace) 100 mg GT BID [facility] Stop: 04/11/19 10:59 Last Admin: 03/16/19 08:05 Dose: 100 mg Documented by: Enteral Nutritional Formula (Impact 1.0 Sergei) 1,000 ml OG UD [facility]; Protocol Stop: 04/10/19 09:59 Last Admin: 03/15/19 16:24 Dose: 1,000 ml Documented by: Famotidine (Pepcid) 20 mg OG BID [facility] Stop: 04/11/19 20:59 Last Admin: 03/16/19 08:05 Dose: 20 mg Documented by: Fentanyl Citrate (Fentanyl Citrate) 100 mcg IV Q2H PRN PRN Reason: Severe Pain (7,8,9,10) Stop: 03/30/19 08:22 Fentanyl Citrate (Fentanyl Citrate) 50 mcg IV Q2H PRN PRN Reason: Moderate Pain (4,5,6) Stop: 03/30/19 08:22 Glucagon (Glucagen) 1 mg IM UD PRN; Protocol PRN Reason: Hypoglycemia Protocol Stop: 04/13/19 17:14 Glucose (Glucose 40%) 15 - 30 gm PO UD PRN; Protocol PRN Reason: Hypoglycemia Protocol Stop: 04/13/19 17:14 Glucose (Dex4 Glucose) 4 - 8 tabs PO UD PRN; Protocol PRN Reason: Hypoglycemia Protocol Stop: 04/13/19 17:14 Heparin Sodium (Porcine) (Heparin Sodium (Porcine)) 5,000 units SQ Q8 [place] Stop: 04/10/19 13:59 Last Admin: 03/16/19 06:21 Dose: 5,000 units Documented by: Propofol (Diprivan) 1,000 mg in 100 mls @ 0 mls/hr IV .Q0M PRN; Protocol PRN Reason: TITRATE Stop: 03/17/19 04:59 Last Titration: 03/16/19 11:00 Dose: 0 mcg/kg/min, 0 mls/hr Documented by: Insulin Aspart (Novolog Flexpen) 0 units SC Q4 [place] Stop: 04/10/19 11:59 Last Admin: 03/16/19 12:28 Dose: Not Given Documented by: Levalbuterol HCl (Xopenex 0.63 Mg/3 Ml Neb) 0.63 mg NEB Q6R [facility] Stop: 04/07/19 19:59 Last Admin: 03/16/19 07:10 Dose: 0.63 mg Documented by: Magnesium Oxide (Mag-Ox) 400 mg PO QAM [facility] Stop: 04/08/19 08:59 Last Admin: 03/16/19 08:04 Dose: 400 mg Documented by: Metoprolol Tartrate (Lopressor) 5 mg IV NOW STA Stop: 03/16/19 12:49 Miscellaneous (Remove Nicoderm Patch) 1 ea N/A HS [facility] Stop: 04/07/19 20:59 Last Admin: 03/15/19 21:43 Dose: 1 ea Documented by: Miscellaneous (Carbohydrates For Hypoglycemia) 15 - 30 gm PO UD PRN PRN Reason: Hypoglycemia Treatment Stop: 06/03/19 17:14 Miscellaneous Information (Consult Glycemic Management Pharmacy) 1 ea N/A UD PRN PRN Reason: Consult Stop: 04/08/19 16:42 Nicotine (Nicoderm Cq) 7 mg TD QAM [facility] Stop: 04/07/19 11:36 Last Admin: 03/16/19 08:22 Dose: Not Given Documented by: Polyethylene Glycol (Miralax Powder Packet) 17 gm PO DAILY PRN PRN Reason: Constipation Stop: 04/12/19 08:11 Last Admin: 03/15/19 08:04 Dose: 17 gm Documented by: Potassium Chloride (Sujatha Ciel Elix) 10 meq PO BID [facility] Stop: 04/09/19 22:59 Last Admin: 03/16/19 08:22 Dose: 10 meq Documented by: Prednisone (Prednisone) 20 mg PO DAILY [facility]; Taper Stop: 04/03/19 08:59 Quetiapine Fumarate (Seroquel) 400 mg PO DAILY@1700 [facility] Stop: 04/08/19 16:59 Last Admin: 03/15/19 16:25 Dose: 400 mg Documented by: Risperidone (Risperdal) 2 mg PO BID [facility] Stop: 04/07/19 11:36 Last Admin: 03/16/19 08:05 Dose: 2 mg Documented by: Valproic Acid (Valproic Acid) 250 mg PO BID [facility] Stop: 04/09/19 22:59 Last Admin: 03/16/19 08:23 Dose: 250 mg Documented by:
[2019-03-16] MEDS: fentaNYL citrate 100 MCG/2 ML VIAL IV PRN (14:10)
[2019-03-16] MEDS ORDERED: LACTATED RINGER'S 1,000 ML IV ONE (14:19)
[2019-03-16] MEDS ORDERED: NORMOSOL-R 2,000 ML IV ONE (18:06)
[2019-03-16] MEDS: QUETIAPINE FUMARATE 200 MG TAB PO SCH (18:10)
[2019-03-16] MEDS ORDERED: NORMOSOL-R 1,000 ML IV ONE (20:55)
[2019-03-16 23:09] LABS: BUN Creatinine Ratio 55.4 (10-20); Calcium 8.4 mg/dl (8.5-10.1); Creatinine Clr Calc Pharmacy 142.8 ml/min; Est GFR (African American) 137.1; Est GFR (Non-African American) 118.3; Magnesium 2.1 mg/dl (1.8-2.4); Phosphorus 3.3 mg/dl (2.5-4.9); Potassium 3.7 mmol/L (3.5-5.1)
[2019-03-16 23:14] LABS: Basophils # (auto) 0.01 K/uL (0-0.2); Eosinophils # (auto) 0.01 K/uL (0-0.5); Hematocrit (blood only) 30.3 % (42-52); Hemoglobin 10.3 g/dL (14.0-18.0); Immature Granulocytes # (auto) 0.14 K/uL (0.00-0.02); Immature Granulocytes % (auto) 0.6 %; Lymphocytes # (auto) 1.94 K/uL (1.2-3.4); Lymphocytes % (auto) 8.8 %; Mean Corpuscular Volume 77.9 fL (80-100); Mean Platelet Volume 9.7 fL (7.4-10.4); Monocytes # (auto) 1.61 K/uL (0.11-0.59); Monocytes % (auto) 7.3 %; Neutrophils # (auto) 18.33 K/uL (1.4-6.5); Neutrophils % (auto) 83.3 %; Platelet Count 594 K/uL (130-400); RDW Standard Deviation 52.8 fL (36.4-46.3); Red Blood Count 3.89 M/uL (4.7-6.1); White Blood Count 22.04 K/uL (4.8-10.8)
[2019-03-17] MEDS: METOPROLOL TARTRATE 1 MG/ML VIAL IV SCH ×4 (01:04→12:00)
[2019-03-17] MEDS: LEVALBUTEROL HCL 0.63 MG/3 ML NEB NEB SCH ×4 (01:46→19:30)
[2019-03-17] MEDS: ACETAMINOPHEN 325 MG TAB PO PRN (02:22)
[2019-03-17] MEDS: INSULIN ASPART 100 UNITS/ML 3 ML PEN SC SCH ×5 (03:33→20:12)
[2019-03-17] MEDS ORDERED: METOPROLOL TARTRATE 1 MG/ML VIAL IV SCH (04:00)
[2019-03-17 05:18] LABS: Basophils # (auto) 0.01 K/uL (0-0.2); Eosinophils # (auto) 0.01 K/uL (0-0.5); Hematocrit (blood only) 31.7 % (42-52); Hemoglobin 10.4 g/dL (14.0-18.0); Immature Granulocytes # (auto) 0.15 K/uL (0.00-0.02); Immature Granulocytes % (auto) 0.7 %; Lymphocytes # (auto) 1.69 K/uL (1.2-3.4); Lymphocytes % (auto) 7.5 %; Mean Corpuscular Hgb Conc 32.8 g/dL (32-36); Mean Corpuscular Volume 79.3 fL (80-100); Mean Platelet Volume 9.6 fL (7.4-10.4); Monocytes # (auto) 1.82 K/uL (0.11-0.59); Neutrophils # (auto) 18.99 K/uL (1.4-6.5); Neutrophils % (auto) 83.8 %; Platelet Count 585 K/uL (130-400); White Blood Count 22.67 K/uL (4.8-10.8)
[2019-03-17 05:43] LABS: BUN Creatinine Ratio 72.6 (10-20); Calcium 8.7 mg/dl (8.5-10.1); Creatinine Clr Calc Pharmacy 158.3 ml/min; Est GFR (Non-African American) 123.4; Magnesium 2.1 mg/dl (1.8-2.4); Phosphorus 3.5 mg/dl (2.5-4.9); Potassium 3.8 mmol/L (3.5-5.1)
[2019-03-17 05:58] LABS: iSTAT Allen Test Pass; iSTAT Arterial Blood Gas HCO3 31 meg/L (19-24); iSTAT Arterial Blood Gas pCO2 44 mmHg (35-46); iSTAT Arterial Blood Gas pH 7.46 (7.35-7.45); iSTAT Carbon Dioxide 32 mEq/l (24-31); iSTAT FiO2 50 %; iSTAT Site R Radial
[2019-03-17] MEDS: HEPARIN SOD 5,000 UNIT/0.5 ML VIAL SQ SCH ×3 (06:03→21:36)
--- NOTE | 2019-03-17 07:07 | XRay Report ---
XR chest 1V portable CLINICAL HISTORY: Shortness of breath. COMPARISON STUDY: 03/16/2019 FINDINGS: There is a feeding tube positioned with its tip in the mid to lower esophagus.[ The heart i s the upper limits of normal in size. The endotracheal tube has been removed. There is mild interstit ial edema. There are decreasing pleural effusions with improved aeration of the lung bases. IMPRESSION: 1. Persistent mild interstitial edema 2. Decreasing pleural effusions with improved aeration lung bases 3. Interval removal of endotracheal tube 4. Feeding tube positioned with its tip in the mid to lower esophagus. Electronically signed by: Frankie Vela M.D. 03/17/2019 7:06 AM
[2019-03-17] MEDS: risperiDONE 2 MG TABLET PO SCH ×2 (08:40→20:21)
[2019-03-17] MEDS: POTASSIUM CHLORIDE 20 MEQ/15 ML UDC PO SCH ×2 (08:40→20:16)
[2019-03-17] MEDS: BENZTROPINE MESYLATE 0.5 MG TAB PO SCH ×2 (08:40→20:15)
[2019-03-17] MEDS: MAGNESIUM OXIDE 400 MG TAB PO SCH (08:40)
[2019-03-17] MEDS: predniSONE 10 MG TABLET PO SCH (08:40)
[2019-03-17] MEDS: NICOTINE 7 MG/24 HR TDSY TD SCH (08:41)
[2019-03-17] MEDS: DOCUSATE SODIUM SYRUP 100 MG/10 ML UDC GT SCH ×2 (08:42→20:16)
[2019-03-17] MEDS: VALPROIC ACID SOLN 250 MG/5 ML UDC PO SCH ×2 (08:42→20:21)
[2019-03-17] MEDS: FAMOTIDINE 20 MG TAB OG SCH ×2 (08:42→20:20)
--- NOTE | 2019-03-17 09:01 | XRay Report ---
XR KUB/Abdomen 1 view CLINICAL HISTORY: pulled coresafe and was readvanced. Confirm placem tube position COMPARISON STUDY: 03/16/2019 FINDINGS: core safe has been pulled back and is now either within the distal esophagus and/or medial right lower lobe. This should be pulled back and again readvanced. IMPRESSION: Core safe is now either within the distal esophagus or medial right lower lobe bronchus. It should again be pulled back and repositioned The above report was generated using voice recognition software. It may contain grammatical, syntax or spelling errors. Electronically signed by: Ron Friend M.D. 03/17/2019 8:59 AM
[2019-03-17] MEDS ORDERED: FIBERSOURCE HN 1.2 CAL 1000 ML BAG NG SCH (09:30)
[2019-03-17 11:10] LABS: iSTAT Allen Test Pass; iSTAT Arterial Blood Gas HCO3 33 meg/L (19-24); iSTAT Arterial Blood Gas pCO2 48 mmHg (35-46); iSTAT Arterial Blood Gas pH 7.44 (7.35-7.45); iSTAT Carbon Dioxide 34 mEq/l (24-31); iSTAT FiO2 40 %; iSTAT Hematocrit 28 % (42-52); iSTAT Hemoglobin 9.5 g/dl (14.0-18.0); iSTAT Potassium 4.4 mEq/L (3.3-5.0); iSTAT Site L Radial; iSTAT Sodium 136 mEq/L (135-144)
--- NOTE | 2019-03-17 11:49 | XRay Report ---
XR KUB/Abdomen 1 view CLINICAL HISTORY: Repositioned feeding tube COMPARISON STUDY: Earlier in the day FINDINGS: A single portable study centered on the diaphragms is provided for interpretation. The feed ing tube projects over the right medial lower chest. While likely within the distal esophagus, one ca nnot with certainty exclude the catheter being located within a right lower lobe bronchus. There is a nonspecific 4 mm calcification projected to the right of the L2-3 disc space. IMPRESSION: No change the position of the feeding tube which projects over the distal esophagus. Rep ositioning is recommended. Electronically signed by: Frankie Vela M.D. 03/17/2019 11:47 AM
--- NOTE | 2019-03-17 11:51 | XRay Report ---
XR KUB/Abdomen 1 view CLINICAL HISTORY: Feeding tube repositioning COMPARISON STUDY: Earlier in the day FINDINGS: The feeding tube has been advanced and now projects over the stomach. IMPRESSION: The feeding tube is positioned within the stomach. Electronically signed by: Frankie Vela M.D. 03/17/2019 11:49 AM
--- NOTE | 2019-03-17 11:54 | XRay Report ---
XR KUB/Abdomen 1 view CLINICAL HISTORY: REPOSITION tube position COMPARISON STUDY: Same date 10:59 AM FINDINGS: Tube is been repositioned now in the gastric fundus. This image was acquired 11:05 AM IMPRESSION: Tube has been repositioned in the gastric fundus. The above report was generated using voice recognition software. It may contain grammatical, syntax or spelling errors. Electronically signed by: Ron Friend M.D. 03/17/2019 11:53 AM
--- NOTE | 2019-03-17 12:09 | Critical Care Progress Note ---
Date of Service March 17, 2019 Assessment & Plan (1) Acute respiratory failure with hypoxia: Omari Bailey is a 73-year-old male with a past medical history of esophageal cancer, pneumonia, tobacco abuse, COPD, schizophrenia, history of GI bleed, hiatal hernia, and noncompliance with MANUFACTURING DEVELOPMENT ENGINEER diet/texture recommendations who presented to the hospital on 03/08/2019 with fever and shortness of breath. He was febrile on admission with lactic acidosis and hypoxic respiratory failure, ICU was consulted for acute respiratory failure. Neuro - [facility] ICU: Positive Sedation/analgesia APAP 650 mg p.o. every 4 hours as needed Fentanyl 50-100 mcg IV every 2 hour as needed Acute encephalopathy 2/2 hyperammonenemia versus delirium versus history of schizophrenia Continue risperidone 2 mg p.o. twice daily Continue valproic acid 250 mg p.o. twice daily. Ammonia 39 yesterday. Lactulose titrated to to 3 bowel movements per day. Cardiac - Sinus tachycardia to with hypertension On metoprolol succinate 25 mg at home. Short-term metoprolol tartrate to establish blood pressure control requirements yesterday. Currently on tartrate 50mg PO BID with good control. Respiratory - Acute hypoxic respiratory failure, ARDS secondary to aspiration pneumonia versus pneumonitis Treated with empiric Vanco, Zosyn, doxycycline on admission. Completed 7 days of Zosyn () Chest x-ray yesterday did not show lobar consolidation or signs of worsening pneumonia . [id number]-[id number] ultrasound showed interstitial edema without pleural effusion. Doing well following extubation. On CPAP 10 this morning with good saturation. Respiratory rate 2230, SPO2 greater than 94% on oxygen mask 5 L. Repeat ABG shows mild metabolic alkalosis (pH 7.46, 44, 100, 31). Continue to follow respiratory status and wean oxygen to goal SPO2 greater than 90%. GI - Esophageal cancer with multiple MANUFACTURING DEVELOPMENT ENGINEER evaluations in the past. MANUFACTURING DEVELOPMENT ENGINEER has recommended thickened liquids, patient continually noncompliant with recommendations in the past and reportedly will take thin liquids from other residents after observed meals [employer] High aspiration risk with recurrent past aspiration events Nutrition: [facility] placed tube feeding with impact with a goal rate of 65 cc/h (1560 kcals for estimated daily caloric need of [id number] kcals per day). Patient placed in soft restraints and meds as he pulled out his course safe several times and required re-advancement with KUB confirmation of replacement. Concerns given patient noncompliance, but could benefit from PEG tube RENAL/LYTES - Sodium 137, potassium 3.8 Creatinine 0.37 No magnesium or phosphorus derangements today - Eisenberg catheter in place. total intake 5.4 L output 4.4 L today (3.65 cc/kg/h) ENDO - Adequate glycemic control on ICU protocol, serum glucose 320677 last 24 hours. Continue sliding scale aspart. History of high-dose steroid use Was previously on methylprednisolone 40 mg every 8 hours , decreased to 40 mg daily on 03/10, 20 mg daily on 03/15 Prednisone taper as follows: 20 mg x 5 days, followed by 15 mg x 4 days, followed by 10 mg x 4 days, followed by 5 mg x 4 days. HEME - Chronic normocytic normochromic anemia. Hemoglobin stable at 9.1 likely 2/2 chronic disease Monitor for clinical signs of bleeding while on heparin ID - Aspiration pneumonia treated with 7 days of Zosyn as above. No signs of ongoing infection. Blood cultures 03/08 with no growth x2 Afebrile INTEGUMENTARY - No new, active lesions at this time. Routine ulcer prophylaxis LINES/IV ACCESS - PIVs intact. DVT PROPHYLAXIS - Heparin 5000 units 3 times daily Thank you for allowing us to be part of this patient's care. Please refer to Dr. Griffith's documentation for any further recommendations. Supervising Physician Co-Signing Physician Notes Reason Critically Ill: 73-year-old male with recurrent aspiration pneumonia status post acute respiratory distress syndrome PLAN: Neuro: Sedation and analgesia - Stop continuous fentanyl convert to intermittent bolus Acute encephalopathy: Schizophrenia versus ICU delirium Schizophrenia -Discontinue scheduled Reglan -Depakote subtherapeutic, will give additional 500 mg today recheck in 72 hours - ammonia level: Elevated starting lactulose titrated 2-3 bowel movements daily will recheck ammonia level in 48 hours Resp: Aspiration pneumonia:Completed 7 days Zosyn Acute respiratory distress syndrome: Improved Infiltrate right chest x-ray: Improved -Aggressive pulmonary toilet, percussion vibration vest and flutter valve CV: Tachycardia: Metoprolol tartrate 50 mg Fluids/Renal: Significant diuresis yesterday ID: Aspiration pneumonia: Improved - Cultures negative, no bronchoscopy specimen GI/Nutrition: Esophageal cancer Recurrent aspiration - Patient noncompliant with recommendations, always taking fluids Not following dietary texture recommendations either Constipation: improved Tube feeding formulation: Increasing tube feeds - Corsafe: Patient requiring mitts as he is pulling at tubes, unable to be verbally redirected Heme: Anemia of chronic disease Reported history of gastrointestinal hemorrhage - Pepcid prophylaxis DVT prophylaxis: Heparin 5000 3 times daily Endocrine: ICU hyperglycemia protocol - Insulin sliding scale High-dose steroid use -Will instill long-term taper: 20 mg x 5 days then 15 x 4 days then 10 x 4 days then 5 x 4 days Vascular access: Peripheral IVs Code Status: Full code, patient is been his medical decision-maker, procedures will require to physician consent. Dispo: Consider downgrade to telemetry status when heart rate achieves better controlled I have personally spent 35 minutes of critical care time in the direct management of this patient. This is a life/limb threatening event. This includ es time spent evaluating patient, direct bedside care, chart review, placing orders, interpretation of diagnostic studies, discussion with consultants, patient, and/or family members regarding treatment decisions, as well as other required patient management activities. This time is exclusive of all separately billable procedures, and teaching time and separate from and in addition to any other critical care service time. Dr. Gandhi was resident physician during care of patient. I separately evaluated patient for desouza portions of the history and the exam. I was present during the critical portion of medical decision making, and I discussed the case with the resident. I generally agree with the findings and plan. Subjective Mr.. Bailey is more alert today. He gives yes no answers to questions. Does not verbally communicate outside of yes no answers. Indicates that he is short of breath, denies pain Review of Systems Review of Systems: Review of systems unreliable due to altered mental status Constitutional: Denies fever, chills, Eyes: Denies double vision, vision change, eye pain Cardiovascular: Denies Chest pain, chest pressure, palpitations, extremity swelling Respiratory: Endorses shortness of breath, cough, sputum production, difficulty breathing Gastrointestinal: Denies abdominal pain, nausea, Genitourinary: Denies pain with urination, Musculoskeletal: Denies muscle aches/pain, joint aches/pain Physical Exam Physical Exam: General: Awake, thin male lying in hospital bed. Gives yes no answers. HEENT: Atraumatic, normocephalic. Pulm: On CPAP 10. SPO2 greater than 94%. Diminished lung sounds, diffusely rhonchorous. Cardiac: RRR, -mrg. Radial pulses intact and symmetrical. Abdominal: Nontender, nondistended, soft. BS present. Extremity: No distal extremity edema. PT and radial pulses intact and symmetrical. Results & Data Vital Signs (Past 12 Hours) Vital Signs Temp Pulse Pulse Pulse Resp BP Pulse Ox 03/17/19 06:00 127 H 20 154/98 H 95 03/17/19 05:00 36.7 C 123 H 158/97 H 98 03/17/19 04:30 118 H 30 H 98 03/17/19 04:00 117 H 21 144/89 H 98 03/17/19 03:31 128 H 30 H 143/103 H 97 03/17/19 03:28 130 H 164/85 H 03/17/19 03:00 132 H 27 H 155/111 H 95 03/17/19 02:00 124 H 31 H 145/87 H 96 03/17/19 01:49 129 H 26 H 98 03/17/19 01:47 129 H 98 03/17/19 01:04 135 H 147/94 H 03/17/19 00:39 128 H 28 H 98 03/17/19 00:00 137 H 25 H 152/100 H 96 03/16/19 23:00 117 H 24 129/77 97 03/16/19 22:57 128 H 25 H 98 03/16/19 22:30 115 H 27 H 131/85 96 03/16/19 22:14 140 H 03/16/19 22:00 142 H 26 H 152/106 H 97 03/16/19 21:00 128 H 28 H 138/90 96 03/16/19 20:00 125 H 26 H 124/81 95 03/16/19 19:43 24 94 03/16/19 19:41 128 H 24 94 03/16/19 19:00 132 H 26 H 123/66 88 L Resident Activity Tracking Resident Involvement: Resident Care Provided Care Provided: Adult [facility] Medicine
[2019-03-17] MEDS ORDERED: LACTULOSE SYRUP 30 GM/45 ML UDP PO PRN (12:30)
[2019-03-17] MEDS ORDERED: VALPROIC ACID SOLN 500 MG/10 ML UDC PO SCH (13:00)
[2019-03-17 15:20] LABS: iSTAT Arterial Blood Gas HCO3 31 meg/L (19-24); iSTAT Arterial Blood Gas pCO2 39 mmHg (35-46); iSTAT Carbon Dioxide 32 mEq/l (24-31)
[2019-03-17 15:22] LABS: iSTAT Allen Test Acceptable; iSTAT FiO2 50 %; iSTAT Sample Type Arterial
[2019-03-17 15:23] LABS: iSTAT Site R Radial
[2019-03-17 15:24] LABS: iSTAT SpO2 98
[2019-03-17 15:25] LABS: iSTAT Arterial Blood Gas HCO3 30 meg/L (19-24); iSTAT Arterial Blood Gas pCO2 35 mmHg (35-46); iSTAT Arterial Blood Gas pH 7.54 (7.35-7.45); iSTAT Carbon Dioxide 31 mEq/l (24-31)
[2019-03-17 15:26] LABS: iSTAT Allen Test Acceptable; iSTAT Sample Type Arterial
[2019-03-17 15:27] LABS: iSTAT Site R Radial; iSTAT SpO2 86
--- NOTE | 2019-03-17 16:06 | Hospitalist Progress Note ---
Date of Service March 17, 2019 Assessment & Plan (1) On mechanically assisted ventilation: Required mechanical ventilation since yesterday due to increasing hypoxia and hypercapnia Now sedated on mechanical ventilation Remains ventilated and still not yet ready to be extubated Current management as per static balancer We will try to extubate today as discussed with static balancer May have pleural effusion and will try to do a thoracentesis today by the static balancer Try for extubation following that Status post extubation on 03/17 Remains very short of breath with wheezing (2) Acute respiratory failure with hypoxia: Secondary to COPD and complicated by Multifocal pneumonia as treated below Requiring BiPAP to maintain saturation and decreased CO2 level Appreciate static balancer input and recommendations The patient required intubation on 03/10 due to increasing hypoxia and hypercapnia Remains in stable on vent and stable Management as per static balancer White count seems to be elevated and antibiotic has been restarted as he finished the course (3) Sepsis: Presented with sepsis likely secondary to pneumonia Continue current antibiotic No fever and or increase in white count Antibiotic course is done White count is elevated, further antibiotic as per static balancer (4) Multifocal pneumonia: No increasing depression no increasing white countPossible healthcare a ssociated pneumonia VS aspiration pneumonia COPD exacerbation, smoker Has been on intravenous Zosyn ,vancomycin and doxycycline Blood cultures-negative Sputum cultures-not collected Nasal MRSA swab-negative Solu-Medrol 40 mg every 8 hours and nebulized bronchodilators We will not get speech evaluation again Has chronic aspiration and the patient wants to eat orally Has been on mechanical ventilator and sedated Lungs seems to be clear on auscultation White count has been increasing May have to add another antibiotic if the condition persist without any improvement Encephalopathy secondary Sepsis Mental status appears to be back to baseline CT head negative for acute process Hyponatremia Likely hypovolemic Possible component of SIADH secondary to pneumonia Gentle IV fluids Sodium level is 131 on 02/10 9 Sodium 134 on 03/10 Sodium has been normalized Hypertension Reduce metoprolol to half his usual dose to prevent hypotension Esophageal cancer GERD History of upper GI bleed but none at this moment Hemoglobin stable Follow-up with GI Continue PPI PPI Abnormal CT findings per previous admission: There is a 9 mm spiculated appearing nodule in the left lower lobe. This is pathologically indeterminant but concerning for neoplasm. A 2-3 month follow-up examination is recommended in follow-up. 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 Schizophrenia Continue usual medications Nutrition Has been on nasogastric tube feeding DVT prophylaxis SCDs for now in light of recent upper GI bleed, esophageal cancer Disposition Lives in [facility] facility Has no family members and or POA He remains for full code as of now (5) Anemia: Seems to be an anemia of chronic disease Complicated by recent illness Hemoglobin dropped to 6.7 on 03/10 6 he will get 2 units of packed red blood transfusion today Hemoglobin is 8.8 after transfusion Hemoglobin is 9.3 on 03/13 Hemoglobin remains stable at more than 9 No family member and/or customer relations representative from [facility] are not available to discuss the case Subjective 03/09 The patient was seen and examined in ICU 73-year-old male with history of COPD, smoker, hypertension, recently diagnosed esophageal cancer, upper GI bleed, schizophrenia, presenting with confusion. Patient was recently admitted to [facility] for sepsis secondary to pneumonia. He was discharged on February 17, 2019. The patient was brought back to the emergency room for shortness of breath and cough. At present the patient was febrile at 40 F and hypoxic at 80%.Lactic acid and procalcitonin elevated. Complains to have some shortness of breath and weakness Denies any chest pain no palpitation, any abdominal pain nausea and vomiting 03/10 The patient was seen and examined in ICU overnight more short of breath which improved with bipap and morphine. this morning his breathing has improved his blood pressure was better overnight 03/11 Patient seen and examined today in ICU He required intubation yesterday due to worsening hypoxia and hypercapnia Remains on sedation 03/13 Late documentation today for /2 Required intubation and keeps intubated Requiring IV sedation 03/13 Patient has been examined in ICU Trial for extubation failed Has been getting less sedatives 03/14 The patient was seen and examined today in ICU He remains intubated So for that symptom extubation have been failed 03/15 He has been on mechanical ventilator and now off sedatives Has been on CPAP now and will try to extubate sometime today if possible 03/16 The patient was seen and examined in ICU He remains intubated and try to extubate has failed so far Off intravenous sedatives 03/17 The patient was seen and examined in the ICU He is extubated this morning Has been complaining of shortness of breath and wheezing and also has a lot of transmitted sounds Denies any significant pain Review of Systems Review of Systems: All systems reviewed and are unremarkable except as noted below Constitutional: + fatigue and + weakness Respiratory: + chest congestion, + dyspnea and + wheezing Physical Exam Physical Exam: Moderate shortness of breath at rest Constitutional: + ill appearing Eyes: PERRL, conjunctivae normal, anicteric sclerae ENMT: external ear and nose normal, oropharynx normal Neck: trachea midline, no thyromegaly Respiratory: + respiratory distress Auscultation: + diminished lung sounds (With wheezing and crackles and also transmitted sound from secretions) Cardiovascular: Rate/Rhythm: regular rate and regular rhythm Heart Sounds: normal S1 and normal S2 Gastrointestinal (Abdomen): Inspection/Auscultation: abdomen normal to inspection and normal bowel sounds Percussion/Palpation: abdomen soft; abdomen nontender Lymphatic: no cervical or axillary lymphadenopathy Results & Data Vital Signs (Past 12 Hours) Vital Signs Temp Pulse Pulse Resp BP Pulse Ox 03/17/19 14:00 121 H 36 H 116/74 92 03/17/19 13:56 122 H 28 H 90 03/17/19 13:31 122 H 25 H 140/100 90 03/17/19 13:00 120 H 26 H 140/96 92 03/17/19 12:30 84 27 H 105/59 L 93 03/17/19 12:01 128 H 26 H 173/92 H 93 03/17/19 12:00 128 H 162/98 H 03/17/19 11:30 128 H 29 H 162/98 H 90 03/17/19 11:18 123 H 29 H 153/108 H 91 03/17/19 11:00 127 H 30 H 135/104 H 90 03/17/19 10:30 126 H 30 H 135/96 91 03/17/19 10:01 122 H 16 139/74 94 03/17/19 09:40 109 H 26 H 127/74 95 03/17/19 09:31 105 H 25 H 127/74 97 03/17/19 09:01 106 H 22 124/78 96 03/17/19 08:38 123 H 170/95 H 03/17/19 08:36 125 H 27 H 170/95 H 90 03/17/19 08:31 130 H 36 H 168/103 H 88 L 03/17/19 08:01 118 H 13 156/106 H 88 L 03/17/19 07:37 126 H 14 163/93 H 88 L 03/17/19 07:31 126 H 18 150/97 H 91 03/17/19 07:02 120 H 30 H 95 03/17/19 07:01 121 H 120 H 29 H 152/98 H 95 03/17/19 06:31 130 H 15 154/91 H 96 03/17/19 06:00 127 H 20 154/98 H 95 03/17/19 05:00 36.7 C 123 H 158/97 H 98 03/17/19 04:30 118 H 30 H 98 03/17/19 04:00 117 H 21 144/89 H 98 Laboratory Results Short CBC 03/16/19 03/17/19 Range/Units 22:34 05:07 WBC 22.04 H 22.67 H (4.8-10.8) K/uL Hgb 10.3 L 10.4 L (14.0-18.0) g/dL Hct 30.3 L 31.7 L (42-52) % Plt Count 594 H 585 H (130-400) K/uL BMP 03/16/19 03/17/19 22:34 05:07 Sodium 140 137 Potassium 3.7 D 3.8 Chloride 103 103 Carbon Dioxide 31 30 BUN 23 H 27 H Creatinine 0.41 L 0.37 L Glucose 121 H 128 H Calcium 8.4 L 8.7 Medications Administered Current Inpatient Medications Acetaminophen (Tylenol) 650 mg PO Q4H PRN PRN Reason: Pain or Fever Stop: 04/07/19 11:36 Last Admin: 03/17/19 02:22 Dose: 650 mg Documented by: Benztropine Mesylate (Cogentin) 0.5 mg PO BID [facility] Stop: 04/07/19 20:59 Last Admin: 03/17/19 08:40 Dose: 0.5 mg Documented by: Dextrose (Dextrose 50%) 25 - 50 ml IV UD PRN; Protocol PRN Reason: Hypoglycemia Protocol Stop: 04/13/19 17:14 Docusate Sodium (Colace) 100 mg GT BID [facility] Stop: 04/11/19 10:59 Last Admin: 03/17/19 08:42 Dose: 100 mg Documented by: Enteral Nutritional Formula (Fibersource Hn 1.2 Sergei Liquid) 1,000 ml NG UD [facility]; Protocol Stop: 04/16/19 09:29 Last Admin: 03/17/19 11:51 Dose: 1,000 ml Documented by: Famotidine (Pepcid) 20 mg OG BID [facility] Stop: 04/11/19 20:59 Last Admin: 03/17/19 08:42 Dose: 20 mg Documented by: Fentanyl Citrate (Fentanyl Citrate) 100 mcg IV Q2H PRN PRN Reason: Severe Pain (7,8,9,10) Stop: 03/30/19 08:22 Last Admin: 03/17/19 08:39 Dose: 100 mcg Documented by: Fentanyl Citrate (Fentanyl Citrate) 50 mcg IV Q2H PRN PRN Reason: Moderate Pain (4,5,6) Stop: 03/30/19 08:22 Last Admin: 03/16/19 14:10 Dose: 50 mcg Documented by: Glucagon (Glucagen) 1 mg IM UD PRN; Protocol PRN Reason: Hypoglycemia Protocol Stop: 04/13/19 17:14 Glucose (Glucose 40%) 15 - 30 gm PO UD PRN; Protocol PRN Reason: Hypoglycemia Protocol Stop: 04/13/19 17:14 Glucose (Dex4 Glucose) 4 - 8 tabs PO UD PRN; Protocol PRN Reason: Hypoglycemia Protocol Stop: 04/13/19 17:14 Heparin Sodium (Porcine) (Heparin Sodium (Porcine)) 5,000 units SQ Q8 [facility] Stop: 04/10/19 13:59 Last Admin: 03/17/19 13:56 Dose: 5,000 units Documented by: Insulin Aspart (Novolog Flexpen) 0 units SC Q4 [facility] Stop: 04/10/19 11:59 Last Admin: 03/17/19 12:47 Dose: 1 units Documented by: Lactulose (Chronulac) 30 gm PO Q4H PRN PRN Reason: AMMONIA ENCEPHALOPATHY Stop: 04/16/19 12:29 Last Admin: 03/17/19 13:56 Dose: 30 gm Documented by: Levalbuterol HCl (Xopenex 0.63 Mg/3 Ml Neb) 0.63 mg NEB Q6R [facility] Stop: 04/07/19 19:59 Last Admin: 03/17/19 13:55 Dose: 0.63 mg Documented by: Magnesium Oxide (Mag-Ox) 400 mg PO QAM [facility] Stop: 04/08/19 08:59 Last Admin: 03/17/19 08:40 Dose: 400 mg Documented by: Metoprolol Tartrate (Lopressor) 50 mg PO BID [facility] Stop: 04/16/19 20:59 Miscellaneous (Remove Nicoderm Patch) 1 ea N/A HS [facility] Stop: 04/07/19 20:59 Last Admin: 03/16/19 21:13 Dose: 1 ea Documented by: Miscellaneous (Carbohydrates For Hypoglycemia) 15 - 30 gm PO UD PRN PRN Reason: Hypoglycemia Treatment Stop: 04/13/19 17:14 Miscellaneous Information (Consult Glycemic Management Pharmacy) 1 ea N/A UD PRN PRN Reason: Consult Stop: 04/08/19 16:42 Nic[facility] ([facility] C[facility]) [facility]: 04/07/19 11:36 Last Admin: 03/17/19 08:41 Dose: 7 mg Documented by: Polyethylene Glycol (Miralax Powder Packet) 17 gm PO DAILY PRN PRN Reason: Constipation Stop: 04/12/19 08:11 Last Admin: 03/15/19 08:04 Dose: 17 gm Documented by: Potassium Chloride (Sujatha Ciel Elix) 10 meq PO BID [facility] Stop: 04/09/19 22:59 Last Admin: 03/17/19 08:40 Dose: 10 meq Documented by: Prednisone (Prednisone) 20 mg PO DAILY [facility]; Taper Stop: 04/03/19 08:59 Last Admin: 03/17/19 08:40 Dose: 20 mg Documented by: Quetiapine Fumarate (Seroquel) 400 mg PO DAILY@1700 [facility] Stop: 04/08/19 16:59 Last Admin: 03/16/19 18:10 Dose: 400 mg Documented by: Risperidone (Risperdal) 2 mg PO BID [facility] Stop: 04/07/19 11:36 Last Admin: 03/17/19 08:40 Dose: 2 mg Documented by: Valproic Acid (Valproic Acid) 250 mg PO BID [facility] Stop: 04/09/19 22:59 Last Admin: 03/17/19 08:42 Dose: 250 mg Documented by: Valproic Acid (Valproic Acid) 500 mg PO TODAY@1300 [facility] Stop: 04/16/19 12:59 Last Admin: 03/17/19 13:55 Dose: 500 mg Documented by:
[2019-03-17] MEDS: QUETIAPINE FUMARATE 200 MG TAB PO SCH (16:38)
[2019-03-17] MEDS: METOPROLOL TARTRATE 50 MG TAB PO SCH (20:18)
[2019-03-18] MEDS: LEVALBUTEROL HCL 0.63 MG/3 ML NEB NEB SCH ×4 (01:24→19:13)
[2019-03-18] MEDS: ACETAMINOPHEN 325 MG TAB PO PRN (03:06)
[2019-03-18] MEDS: INSULIN ASPART 100 UNITS/ML 3 ML PEN SC SCH ×6 (04:10→21:19)
[2019-03-18 04:49] LABS: Basophils # (auto) 0.01 K/uL (0-0.2); Hematocrit (blood only) 28.7 % (42-52); Hemoglobin 9.5 g/dL (14.0-18.0); Immature Granulocytes # (auto) 0.11 K/uL (0.00-0.02); Immature Granulocytes % (auto) 0.5 %; Lymphocytes # (auto) 1.07 K/uL (1.2-3.4); Lymphocytes % (auto) 4.6 %; Mean Corpuscular Hgb Conc 33.1 g/dL (32-36); Mean Corpuscular Volume 78.8 fL (80-100); Mean Platelet Volume 9.9 fL (7.4-10.4); Monocytes # (auto) 2.13 K/uL (0.11-0.59); Monocytes % (auto) 9.1 %; Neutrophils # (auto) 19.97 K/uL (1.4-6.5); Neutrophils % (auto) 85.8 %; Platelet Count 559 K/uL (130-400); RDW Coefficient of Variation 19.3 % (11.5-14.5); RDW Standard Deviation 54.5 fL (36.4-46.3); Red Blood Count 3.64 M/uL (4.7-6.1); White Blood Count 23.29 K/uL (4.8-10.8)
[2019-03-18 05:09] LABS: BUN Creatinine Ratio 63.7 (10-20); Calcium 8.6 mg/dl (8.5-10.1); Creatinine Clr Calc Pharmacy 100.2 ml/min; Est GFR (African American) 128.5; Est GFR (Non-African American) 110.9; Phosphorus 3.8 mg/dl (2.5-4.9); Potassium 3.3 mmol/L (3.5-5.1)
[2019-03-18] MEDS: HEPARIN SOD 5,000 UNIT/0.5 ML VIAL SQ SCH ×3 (05:31→21:21)
[2019-03-18] MEDS ORDERED: POTASSIUM CHLORIDE 20 MEQ/15 ML UDC PO ONE (06:00)
[2019-03-18] MEDS: POTASSIUM CHLORIDE / WTR 10 MEQ/100 ML PLCT IV SCH ×2 (06:19→07:35)
[2019-03-18] MEDS ORDERED: DOCUSATE SODIUM SYRUP 100 MG/10 ML UDC GT PRN (08:15)
[2019-03-18] MEDS: VALPROIC ACID SOLN 250 MG/5 ML UDC PO SCH ×2 (08:47→21:51)
[2019-03-18] MEDS: risperiDONE 2 MG TABLET PO SCH ×2 (08:48→21:50)
[2019-03-18] MEDS: MAGNESIUM OXIDE 400 MG TAB PO SCH (08:48)
[2019-03-18] MEDS: METOPROLOL TARTRATE 50 MG TAB PO SCH ×2 (08:48→21:21)
[2019-03-18] MEDS: FAMOTIDINE 20 MG TAB OG SCH (08:48)
[2019-03-18] MEDS: predniSONE 10 MG TABLET PO SCH (08:48)
[2019-03-18] MEDS: NICOTINE 7 MG/24 HR TDSY TD SCH (08:49)
[2019-03-18] MEDS: POTASSIUM CHLORIDE 20 MEQ/15 ML UDC PO SCH ×2 (08:50→21:50)
[2019-03-18] MEDS: BENZTROPINE MESYLATE 0.5 MG TAB PO SCH ×2 (09:23→21:50)
--- NOTE | 2019-03-18 11:24 | Hospitalist Progress Note ---
Date of Service March 18, 2019 Assessment & Plan (1) On mechanically assisted ventilation: Required mechanical ventilation since yesterday due to increasing hypoxia and hypercapnia Now sedated on mechanical ventilation Remains ventilated and still not yet ready to be extubated Current management as per railcar foreman We will try to extubate today as discussed with railcar foreman May have pleural effusion and will try to do a thoracentesis today by the railcar foreman Try for extubation following that Status post extubation on 03/17 Remains very short of breath with wheezing Status post extubation on 03/17 Has been doing much better following extubation Denies any complaints but has moderate shortness of breath at rest with wheezing (2) Acute respiratory failure with hypoxia: Secondary to COPD and complicated by Multifocal pneumonia as treated below Requiring BiPAP to maintain saturation and decreased CO2 level Appreciate railcar foreman input and recommendations The patient required intubation on 03/10 due to increasing hypoxia and hypercapnia Remains in stable on vent and stable Management as per railcar foreman White count seems to be elevated and antibiotic has been restarted as he finished the course Continue current nasal cannula oxygen delivery to maintain saturation (3) Sepsis: Presented with sepsis likely secondary to pneumonia Continue current antibiotic No fever and or increase in white count Antibiotic course is done White count is elevated, further antibiotic as per railcar foreman White count remains elevated in part due to use of steroids, no evidence of any recurrent infection (4) Multifocal pneumonia: No increasing depression no increasing white countPossible healthcare associated pneumonia VS aspiration pneumonia COPD exacerbation, smoker Has been on intravenous Zosyn ,vancomycin and doxycycline Blood cultures-negative Sputum cultures-not collected Nasal MRSA swab-negative Solu-Medrol 40 mg every 8 hours and nebulized bronchodilators We will not get speech evaluation again Has chronic aspiration and the patient wants to eat orally Has been on mechanical ventilator and sedated Lungs seems to be clear on auscultation White count has been increasing Finished intravenous Zosyn for pneumonia May have to add another antibiotic if it is coming back Encephalopathy secondary Sepsis Mental status appears to be back to baseline CT head negative for acute process And couple medically cleared Hyponatremia Likely hypovolemic Possible component of SIADH secondary to pneumonia Gentle IV fluids Sodium level is 131 on 02/10 9 Sodium 134 on 03/10 Sodium has been normalized and 139 as one 03/18 We will check PRP tomorrow for low potassium Hypertension Reduce metoprolol to half his usual dose to prevent hypotension Esophageal cancer GERD History of upper GI bleed but none at this moment Hemoglobin stable Follow-up with GI Continue PPI PPI Abnormal CT findings per previous admission: There is a 9 mm spiculated appearing nodule in the left lower lobe. This is pathologically indeterminant but concerning for neoplasm. A 2-3 month follow-up examination is recommended in follow-up. 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 Schizophrenia Continue usual medications Nutrition Has been on nasogastric tube feeding Patient does not want to have a PEG tube placement He has recurrent aspiration and has had multiple speech therapy evaluation and recommendation He will continue to eat orally He has to have supervised feeding DVT prophylaxis SCDs for now in light of recent upper GI bleed, esophageal cancer Disposition Lives in [facility] facility Has no family members and or POA He remains for full code as of now (5) Anemia: Seems to be an anemia of chronic disease Complicated by recent illness Hemoglobin dropped to 6.7 on 03/10 6 he will get 2 units of packed red blood transfusion today Hemoglobin is 8.8 after transfusion Hemoglobin is 9.3 on 03/13 Hemoglobin remains stable at more than 9 No family member and/or insurance claim representative from [facility] are not available to discuss the case Subjective 03/09 The patient was seen and examined in ICU 73-year-old male with history of COPD, smoker, hypertension, recently diagnosed esophageal cancer, upper GI bleed, schizophrenia, presenting with confusion. Patient was recently admitted to [facility] for sepsis secondary to pneumonia. He was discharged on February 17, 2019. The patient was brought back to the emergency room for shortness of breath and cough. At present the patient was febrile at 40 F and hypoxic at 80%.Lactic acid and procalcitonin elevated. Complains to have some shortness of breath and weakness Denies any chest pain no palpitation, any abdominal pain nausea and vomiting 03/10 The patient was seen and examined in ICU overnight more short of breath which improved with bipap and morphine. this morning his breathing has improved his blood pressure was better overnight 03/11 Patient seen and examined today in ICU He required intubation yesterday due to worsening hypoxia and hypercapnia Remains on sedation 03/13 Late documentation today for 03/12 Required intubation and keeps intubated Requiring IV sedation 5/3 Patient has been examined in ICU Trial for extubation failed Has been getting less sedatives 03/14 The patient was seen and examined today in ICU He remains intubated So for that symptom extubation have been failed 03/15 He has been on mechanical ventilator and now off sedatives Has been on CPAP now and will try to extubate sometime today if possible 03/16 The patient was seen and examined in ICU He remains intubated and try to extubate has failed so far Off intravenous sedatives 03/17 The patient was seen and examined in the ICU He is extubated this morning Has been complaining of shortness of breath and wheezing and also has a lot of transmitted sounds Denies any significant pain 03/18 The patient was seen and examined in ICU He was extubated yesterday He has been doing much better since extubation He denies any symptoms Definitely he does not want to have a PEG tube for feeding Review of Systems Constitutional: + fatigue and + weakness Respiratory: + chest congestion, + dyspnea and + wheezing Neurologic: + generalized weakness Physical Exam Physical Exam: Moderate shortness of breath at rest with wheezing Constitutional: + ill appearing Eyes: PERRL, conjunctivae normal, anicteric sclerae ENMT: external ear and nose normal, oropharynx normal Neck: trachea midline, no thyromegaly Respiratory: + respiratory distress Auscultation: + diminished lung sounds (With wheezing and crackles and also transmitted sound from secretions) Cardiovascular: Rate/Rhythm: regular rate and regular rhythm Heart Sounds: normal S1 and normal S2 Gastrointestinal (Abdomen): Inspection/Auscultation: abdomen normal to inspection and normal bowel sounds Percussion/Palpation: abdomen soft; abdomen nontender Lymphatic: no cervical or axillary lymphadenopathy Results & Data Vital Signs (Past 12 Hours) Vital Signs Temp Pulse Pulse Pulse Resp BP BP 03/18/19 10:00 104 H 22 120/74 03/18/19 09:40 99 H 25 H 144/85 H 03/18/19 09:00 113 H 20 144/85 H 03/18/19 08:00 36.8 C 112 H 28 H 121/72 03/18/19 07:18 125 H 24 03/18/19 07:00 129 H 21 147/86 H 03/18/19 06:00 116 H 24 134/73 03/18/19 04:00 37.5 C 120 H 22 134/77 03/18/19 02:00 109 H 26 H 113/61 03/18/19 01:24 120 H 22 03/18/19 00:00 37 C 109 H 20 03/17/19 23:58 115 H 23 BP Pulse Ox 03/18/19 10:00 100 03/18/19 09:40 97 03/18/19 09:00 96 03/18/19 08:00 99 03/18/19 07:18 91 03/18/19 07:00 90 03/18/19 06:00 95 03/18/19 04:00 96 03/18/19 02:00 98 03/18/19 01:24 95 03/18/19 00:00 133/79 96 03/17/19 23:58 96 Laboratory Results Short CBC 03/18/19 Range/Units 04:11 WBC 23.29 H (4.8-10.8) K/uL Hgb 9.5 L (14.0-18.0) g/dL Hct 28.7 L (42-52) % Plt Count 559 H (130-400) K/uL BMP 03/18/19 04:11 Sodium 139 Potassium 3.3 L Chloride 104 Carbon Dioxide 29 BUN 30 H Creatinine 0.48 L Glucose 118 H Calcium 8.6 Medications Administered Current Inpatient Medications Acetaminophen (Tylenol) 650 mg PO Q4H PRN PRN Reason: Pain or Fever Stop: 04/07/19 11:36 Last Admin: 03/18/19 03:06 Dose: 650 mg Documented by: Benztropine Mesylate (Cogentin) 0.5 mg PO BID [facility] Stop: 04/07/19 20:59 Last Admin: 03/18/19 09:23 Dose: 0.5 mg Documented by: Dextrose (Dextrose 50%) 25 - 50 ml IV UD PRN; Protocol PRN Reason: Hypoglycemia Protocol Stop: 04/13/19 17:14 Docusate Sodium (Colace) 100 mg GT BID PRN PRN Reason: CONSTIPATION Stop: 04/11/19 10:59 Enteral Nutritional Formula (Fibersource Hn 1.2 Sergei Liquid) 1,000 ml NG UD [facility]; Protocol Stop: 04/16/19 09:29 Last Admin: 03/17/19 11:51 Dose: 1,000 ml Documented by: Famotidine (Pepcid) 20 mg OG BID [facility] Stop: 04/11/19 20:59 Last Admin: 03/18/19 08:48 Dose: 20 mg Documented by: Fentanyl Citrate (Fentanyl Citrate) 100 mcg IV Q2H PRN PRN Reason: Severe Pain (7,8,9,10) Stop: 03/30/19 08:22 Last Admin: 03/17/19 08:39 Dose: 100 mcg Documented by: Fentanyl Citrate (Fentanyl Citrate) 50 mcg IV Q2H PRN PRN Reason: Moderate Pain (4,5,6) Stop: 03/30/19 08:22 Last Admin: 03/16/19 14:10 Dose: 50 mcg Documented by: Glucagon (Glucagen) 1 mg IM UD PRN; Protocol PRN Reason: Hypoglycemia Protocol Stop: 04/13/19 17:14 Glucose (Glucose 40%) 15 - 30 gm PO UD PRN; Protocol PRN Reason: Hypoglycemia Protocol Stop: 04/13/19 17:14 Glucose (Dex4 Glucose) 4 - 8 tabs PO UD PRN; Protocol PRN Reason: Hypoglycemia Protocol Stop: 04/13/19 17:14 Heparin Sodium (Porcine) (Heparin Sodium (Porcine)) 5,000 units SQ Q8 [facility] Stop: 04/10/19 13:59 Last Admin: 03/18/19 05:31 Dose: 5,000 units Documented by: Insulin Aspart (Novolog Flexpen) 0 units SC Q4 [facility] Stop: 04/10/19 11:59 Last Admin: 03/18/19 08:41 Dose: 2 units Documented by: Lactulose (Chronulac) 30 gm PO Q4H PRN PRN Reason: AMMONIA ENCEPHALOPATHY Stop: 04/16/19 12:29 Last Admin: 03/17/19 13:56 Dose: 30 gm Documented by: Levalbuterol HCl (Xopenex 0.63 Mg/3 Ml Neb) 0.63 mg NEB Q6R [facility] Stop: 04/07/19 19:59 Last Admin: 03/18/19 07:18 Dose: 0.63 mg Documented by: Magnesium Oxide (Mag-Ox) 400 mg PO QAM [facility] Stop: 04/08/19 08:59 Last Admin: 03/18/19 08:48 Dose: 400 mg Documented by: Metoprolol Tartrate (Lopressor) 50 mg PO BID [facility] Stop: 04/16/19 20:59 Last Admin: 03/18/19 08:48 Dose: 50 mg Documented by: Miscellaneous (Remove Nicoderm Patch) 1 ea N/A HS [facility] Stop: 04/07/19 20:59 Last Admin: 03/17/19 20:17 Dose: 1 ea Documented by: Miscellaneous (Carbohydrates For Hypoglycemia) 15 - 30 gm PO UD PRN PRN Reason: Hypoglycemia Treatment Stop: 04/13/19 17:14 Miscellaneous Information (Consult Glycemic Management Pharmacy) 1 ea N/A UD PRN PRN Reason: Consult Stop: 04/08/19 16:42 Nicotine (Nicoderm Cq) 7 mg TD QAM [facility] Stop: 04/07/19 11:36 Last Admin: 03/18/19 08:49 Dose: 7 mg Documented by: Polyethylene Glycol (Miralax Powder Packet) 17 gm PO DAILY PRN PRN Reason: Constipation Stop: 04/12/19 08:11 Last Admin: 03/15/19 08:04 Dose: 17 gm Documented by: Potassium Chloride (Sujatha Ciel Elix) 10 meq PO BID [facility] Stop: 04/09/19 22:59 Last Admin: 03/18/19 08:50 Dose: 10 meq Documented by: Prednisone (Prednisone) 20 mg PO DAILY [facility]; Taper Stop: 04/03/19 08:59 Last Admin: 03/18/19 08:48 Dose: 20 mg Documented by: Quetiapine Fumarate (Seroquel) 400 mg PO DAILY@1700 [facility] Stop: 04/08/19 16:59 Last Admin: 03/17/19 16:38 Dose: 400 mg Documented by: Risperidone (Risperdal) 2 mg PO BID [facility] Stop: 04/07/19 11:36 Last Admin: 03/18/19 08:48 Dose: 2 mg Documented by: Valproic Acid (Valproic Acid) 250 mg PO BID [facility] Stop: 04/09/19 22:59 Last Admin: 03/18/19 08:47 Dose: 250 mg Documented by:
--- NOTE | 2019-03-18 13:00 | Critical Care Progress Note ---
Date of Service March 18, 2019 Assessment & Plan (1) Acute respiratory failure with hypoxia: Omari Bailey is a 73-year-old male with a past medical history of esophageal cancer, pneumonia, tobacco abuse, COPD, schizophrenia, history of GI bleed, hiatal hernia, and noncompliance with ASSISTANT EDUCATION DIRECTOR diet/texture recommendations who presented to the hospital on 03/08/2019 with fever and shortness of breath. He was febrile on admission with lactic acidosis and hypoxic respiratory failure, ICU was consulted for acute respiratory failure. Neuro - [facility] ICU: Positive Sedation/analgesia APAP 650 mg p.o. every 4 hours as needed Fentanyl 50-100 mcg IV every 2 hour as needed Acute encephalopathy 2/2 hyperammonenemia versus delirium versus history of schizophrenia Continue risperidone 2 mg p.o. twice daily Continue valproic acid 250 mg p.o. twice daily. 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 Respiratory - Acute hypoxic respiratory failure, ARDS secondary to aspiration pneumonia versus pneumonitis Treated with empiric Vanco, Zosyn, doxycycline on admission. Completed 7 days of Zosyn () Chest x-ray yesterday did not show lobar consolidation or signs of worsening pneumonia . [id number] ultrasound showed interstitial edema without pleural effusion. Improve. Stable. - CPAP qHS for sleep. GI - Esophageal cancer with multiple ASSISTANT EDUCATION DIRECTOR evaluations in the past. 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 Patient placed in soft restraints and meds as he pulled out his course safe several times and required re-advancement with KUB confirmation of replacement. Concerns given patient noncompliance, but could benefit from PEG tube - Given waxing and waning mental status will proceed exclusively with NG feeds. RENAL/LYTES - Sodium 139, potassium 3.3 Creatinine 0.48 - Replace electrolytes as needed - Eisenberg discontinued today. Adequate UOP. ENDO - Adequate glycemic control on ICU protocol, serum glucose 265671 last 24 hours. Continue sliding scale aspart. History of high-dose steroid use Was previously on methylprednisolone 40 mg every 8 hours , decreased to 40 mg daily on 03/10, 20 mg daily on 03/15 Prednisone taper as follows: 20 mg x 5 days, followed by 15 mg x 4 days, followed by 10 mg x 4 days, followed by 5 mg x 4 days. HEME - - Chronic normocytic normochromic anemia. Hemoglobin stable at 9.1 likely 2/2 chronic disease ID - Aspiration pneumonia treated with 7 days of Zosyn as above. No signs of ongoing infection. Blood cultures 03/08 with no growth x2 Afebrile INTEGUMENTARY - No new, active lesions at this time. Routine ulcer prophylaxis LINES/IV ACCESS - PIVs intact. DVT PROPHYLAXIS - Heparin 5000 units 3 times daily Stable for downgrade today. Thank you for allowing us to be part of this patient's care. Please refer to Dr. Griffith's documentation for any further recommendations. Supervising Physician Co-Signing Physician Notes Neuro - [facility] ICU: Positive Sedation/analgesia APAP 650 mg p.o. every 4 hours as needed Fentanyl 50-100 mcg IV every 2 hour as needed Acute encephalopathy 2/2 hyperammonenemia versus delirium versus history of schizophrenia Continue risperidone 2 mg p.o. twice daily Continue valproic acid 250 mg p.o. twice daily -Follow-up Depakote level in 24 to 48 hours. Cardiac - Sinus tachycardia improved 50 mg metoprolol twice daily Respiratory - Acute hypoxic respiratory failure, ARDS secondary to aspiration pneumonia versus pneumonitis: Improved Treated with empiric Vanco, Zosyn, doxycycline on admission. Completed 7 days of Zosyn () GI - Esophageal cancer with multiple ASSISTANT EDUCATION DIRECTOR evaluations in the past. 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 Patient placed in soft restraints and meds as he pulled out his course safe several times and required re-advancement with KUB confirmation of replacement. Concerns given patient noncompliance, but could benefit from PEG tube - Discontinue Eisenberg ENDO - Adequate glycemic control on ICU protocol, serum glucose 370370 last 24 hours. Continue sliding scale aspart. Was previously on methylprednisolone 40 mg every 8 hours , decreased to 40 mg daily on 03/10, 20 mg daily on 03/15 Prednisone taper as follows: 20 mg x 5 days, followed by 15 mg x 4 days, followed by 10 mg x 4 days, followed by 5 mg x 4 days. HEME - Chronic normocytic normochromic anemia. Hemoglobin stable at 9.1 likely 2/2 chronic disease ID - Aspiration pneumonia treated with 7 days of Zosyn as above. No signs of ongoing infection. LINES/IV ACCESS - PIVs intact. DVT PROPHYLAXIS - Heparin 5000 units 3 times daily Patient stable for downgrade out of the ICU today Subjective Mentally improved. Does not want PEG tube. Still difficulty following complex commands and I question the ability to rationally manipulate risks and benefits. Cannot engage in teach back Review of Systems Review of Systems: Review of systems unreliable due to altered mental status Constitutional: Denies fever, chills, Cardiovascular: Denies Chest pain, chest pressure, palpitations, Respiratory: Denies shortness of breath, cough, sputum production, difficulty breathing Gastrointestinal: Denies abdominal pain, nausea Musculoskeletal: Denies muscle aches/pain, joint aches/pain Physical Exam Physical Exam: General: Alert. nontoxic. Skin: Warm, dry, Head: Atraumatic Ears, nose, mouth and throat: airway patent Cardiovascular: Normal peripheral perfusion Respiratory: no respiratory distress Gastrointestinal: Non distended Musculoskeletal: No deformity Results & Data Vital Signs (Past 12 Hours) Vital Signs Temp Pulse Pulse Pulse Resp BP BP 03/18/19 06:00 116 H 24 134/73 03/18/19 04:00 37.5 C 120 H 22 134/77 03/18/19 02:00 109 H 26 H 113/61 03/18/19 01:24 120 H 22 03/18/19 00:00 37 C 109 H 20 03/17/19 23:58 115 H 23 03/17/19 22:00 100 H 26 H 107/69 03/17/19 21:30 105 H 23 116/68 03/17/19 21:00 109 H 27 H 121/74 03/17/19 20:30 115 H 27 H 127/74 03/17/19 20:00 37.2 C 114 H 26 H 118/75 03/17/19 19:54 117 H 03/17/19 19:30 118 H 113 H 27 H 132/79 03/17/19 19:00 112 H 25 H 127/80 BP Pulse Ox 03/18/19 06:00 95 03/18/19 04:00 96 03/18/19 02:00 98 03/18/19 01:24 95 03/18/19 00:00 133/79 96 03/17/19 23:58 96 03/17/19 22:00 98 03/17/19 21:30 97 03/17/19 21:00 96 03/17/19 20:30 94 03/17/19 20:00 97 03/17/19 19:54 03/17/19 19:30 98 03/17/19 19:00 99 Laboratory Results 03/18/19 03/18/19 03/18/19 Range/Units 11:20 04:11 04:11 WBC 23.29 H (4.8-10.8) K/uL RBC 3.64 L (4.7-6.1) M/uL Hgb 9.5 L (14.0-18.0) g/dL Hct 28.7 L (42-52) % MCV 78.8 L (80-100) fL MCH 26.1 (25-34) pg MCHC 33.1 (32-36) g/dL RDW Std Deviation 54.5 H (36.4-46.3) fL RDW Coeff of Migel 19.3 H (11.5-14.5) % Plt Count 559 H (130-400) K/uL MPV 9.9 (7.4-10.4) fL Immature Gran % (Auto) 0.5 % Neut % (Auto) 85.8 % Lymph % (Auto) 4.6 % Weston % (Auto) 9.1 % Eos % (Auto) 0.0 % Baso % (Auto) 0.0 % Immature Gran # (Auto) 0.11 H (0.00-0.02) K/uL Neut # (Auto) 19.97 H (1.4-6.5) K/uL Lymph # (Auto) 1.07 L (1.2-3.4) K/uL Weston # (Auto) 2.13 H (0.11-0.59) K/uL Eos # (Auto) 0.00 (0-0.5) K/uL Baso # (Auto) 0.01 (0-0.2) K/uL Specimen Type Sample Site Patient Temperature POC pH (7.35-7.45) POC pCO2 (35-46) mmHg POC pO2 (80-95) mmHg POC HCO3 (19-24) hamlet/L POC Total CO2 (24-31) mEq/l POC Base Excess (-9-1.8) hamlet/L O2 Sat Pulse Oximetry POC ABG O2 Sat (90-95) % Ra Test O2 Delivery Device POC O2 Rate FiO2 (liters per min) POC FiO2 % EPAP Sodium 139 (136-145) mmol/L Potassium 3.3 L (3.5-5.1) mmol/L Chloride 104 (98-107) mmol/L Carbon Dioxide 29 (21-32) mmol/L Anion Gap 6.0 (3-11) BUN 30 H (7-18) mg/dl Creatinine 0.48 L (0.6-1.4) mg/dl Est Cr Clr Drug Dosing 100.2 ml/min Est GFR ( Amer) 128.5 Est GFR (Non-Af Amer) 110.9 BUN/Creatinine Ratio 63.7 H (10-20) Glucose 118 H (70-99) mg/dl POC Glucose 132 H (70-99) Calcium 8.6 (8.5-10.1) mg/dl Phosphorus 3.8 (2.5-4.9) mg/dl Magnesium 2.0 (1.8-2.4) mg/dl 03/18/19 03/18/19 03/17/19 Range/Units 03:44 00:12 20:08 WBC (4.8-10.8) K/uL RBC (4.7-6.1) M/uL Hgb (14.0-18.0) g/dL Hct (42-52) % MCV (80-100) fL MCH (25-34) pg MCHC (32-36) g/dL RDW Std Deviation (36.4-46.3) fL RDW Coeff of Migel (11.5-14.5) % Plt Count (130-400) K/uL MPV (7.4-10.4) fL Immature Gran % (Auto) % Neut % (Auto) % Lymph % (Auto) % Weston % (Auto) % Eos % (Auto) % Baso % (Auto) % Immature Gran # (Auto) (0.00-0.02) K/uL Neut # (Auto) (1.4-6.5) K/uL Lymph # (Auto) (1.2-3.4) K/uL Weston # (Auto) (0.11-0.59) K/uL Eos # (Auto) (0-0.5) K/uL Baso # (Auto) (0-0.2) K/uL Specimen Type Sample Site Patient Temperature POC pH (7.35-7.45) POC pCO2 (35-46) mmHg POC pO2 (80-95) mmHg POC HCO3 (19-24) hamlet/L POC Total CO2 (24-31) mEq/l POC Base Excess (-9-1.8) hamlet/L O2 Sat Pulse Oximetry POC ABG O2 Sat (90-95) % Ra Test O2 Delivery Device POC O2 Rate FiO2 (liters per min) POC FiO2 % EPAP Sodium (136-145) mmol/L Potassium (3.5-5.1) mmol/L Chloride (98-107) mmol/L Carbon Dioxide (21-32) mmol/L Anion Gap (3-11) BUN (7-18) mg/dl Creatinine (0.6-1.4) mg/dl Est Cr Clr Drug Dosing ml/min Est GFR ( Amer) Est GFR (Non-Af Amer) BUN/Creatinine Ratio (10-20) Glucose (70-99) mg/dl POC Glucose 122 H 100 H 108 H (70-99) Calcium (8.5-10.1) mg/dl Phosphorus (2.5-4.9) mg/dl Magnesium (1.8-2.4) mg/dl 03/17/19 03/16/19 03/16/19 Range/Units 16:04 20:29 18:41 WBC (4.8-10.8) K/uL RBC (4.7-6.1) M/uL Hgb (14.0-18.0) g/dL Hct (42-52) % MCV (80-100) fL MCH (25-34) pg MCHC (32-36) g/dL RDW Std Deviation (36.4-46.3) fL RDW Coeff of Migel (11.5-14.5) % Plt Count (130-400) K/uL MPV (7.4-10.4) fL Immature Gran % (Auto) % Neut % (Auto) % Lymph % (Auto) % Weston % (Auto) % Eos % (Auto) % Baso % (Auto) % Immature Gran # (Auto) (0.00-0.02) K/uL Neut # (Auto) (1.4-6.5) K/uL Lymph # (Auto) (1.2-3.4) K/uL Weston # (Auto) (0.11-0.59) K/uL Eos # (Auto) (0-0.5) K/uL Baso # (Auto) (0-0.2) K/uL Specimen Type Arterial Arterial Sample Site R Radial R Radial Patient Temperature 37.0 37.0 POC pH 7.50 H 7.54 H* (7.35-7.45) POC pCO2 39 35 (35-46) mmHg POC pO2 73 L 53 L (80-95) mmHg POC HCO3 31 H 30 H (19-24) hamlet/L POC Total CO2 32 H 31 (24-31) mEq/l POC Base Excess 8.0 H 7.0 H (-9-1.8) hamlet/L O2 Sat Pulse Oximetry 98 86 POC ABG O2 Sat 96.0 H 91.0 (90-95) % Ra Test Acceptable Acceptable O2 Delivery Device BIPAP Other POC O2 Rate 12 FiO2 (liters per min) 6 POC FiO2 50 % EPAP 10 Sodium (136-145) mmol/L Potassium (3.5-5.1) mmol/L Chloride (98-107) mmol/L Carbon Dioxide (21-32) mmol/L Anion Gap (3-11) BUN (7-18) mg/dl Creatinine (0.6-1.4) mg/dl Est Cr Clr Drug Dosing ml/min Est GFR ( Amer) Est GFR (Non-Af Amer) BUN/Creatinine Ratio (10-20) Glucose (70-99) mg/dl POC Glucose 137 H (70-99) Calcium (8.5-10.1) mg/dl Phosphorus (2.5-4.9) mg/dl Magnesium (1.8-2.4) mg/dl Resident Activity Tracking Resident Involvement: Resident Care Provided Care Provided: Adult Hospital Medicine
--- NOTE | 2019-03-18 13:08 | Procedure Note ---
Procedure Note Date of Service March 16, 2019 Procedure Date: Noted above Critical Care Medicine Point of Care Bedside Ultrasound Procedure: Limited Bedside Lung Ultrasound Indication: Respiratory failure, right infiltrate on chest x-ray Attending: Katie Griffith DO Resident/Physician Hydraulic Jack Adjuster: Insert Oksana Organs Examined: Lung BLUE point (upper), BLUE point (lower), Phrenic Point (axillary), PLAPS point (posterior) A lines visualized: Absent, Hemithorax: Bilateral B lines visualized: Present, Hemithorax: Bilateral Lung Sliding: Present, Hemithorax: Bilateral Tissue-like Sign: Absent hemithorax: Bilateral Shred Sign: Absent, Hemithorax: Bilateral Quad Sign: Absent, Hemithorax: Bilateral Impression: Type B profile consistent with significant interstitial edema Images obtained are saved for permanent record Coding
--- NOTE | 2019-03-18 14:03 | Pharmacy Report ---
Pharmacy Glycemic Short Note 2 - Date of Service March 18, 2019 - Glycemic Short BSG Results (Last 24 hours): 03/17/19 03/17/19 03/18/19 16:04 20:08 00:12 Glucose POC Glucose 137 H 108 H 100 H 03/18/19 03/18/19 03/18/19 03:44 04:11 11:20 Glucose 118 H POC Glucose 122 H 132 H OUTPATIENT ANTIDIABETIC REGIMEN: * N/A (no prior dx of DM) * A1c = 6.0% 03/11/19 (consistent w/ "pre-diabetes") ASSESSMENT: 03/18 * 3 units of insulin in previous 24 hours for tube feed coverage * BSGs within gaol range 100-145 * Continues on prednisone 40 mg daily- taper entered; dose decreased on the * Tube feeds discontinued and patient can now have po diet * Will continue novolog coverage for now- may be able to discontinue if BSGs continue to be controlled 03/16 * 11 units given over last 24 hours * BSGs at goal, currently novolog ordered without basal insulin * Will continue current regimen for now * Pt extubated this AM, with transition to prednisone taper 03/15 * 18 units given over last 24 hrs * BSGs again at goal * BSGs are trending a little lower over last 12 hrs * Will dc Lantus order at this time and rely on Novolog in alone for next 24 hrs * Pt remains intubated this AM and looks as though they may not be extubated today. Tube feeds continue at goal. Solu-medrol continues at same dose. 03/14 * 26 units given in last 24 hrs * All BSGs have been at goal * Patient remains intubated, sedated, with Solu-Medrol at same dosage. * There may be plans to attempt extubation today * One BSG did drop to 104 this AM, tube feeds were not being held prior to this. This does not fit the overall pattern of prior BSGs with current stressors, however decrease in BSG may be related to HS dose of Lantus 6 units. Will decrease Lantus dose by ~ 50% as a result and continue Novolog unchanged 03/13 * Received 31 units of insulin over last 24 hrs * Most BSGs at goal over the last 24 hours. BSGs did peak at 189-196 last evening. I believe this was likely related to upwards titration of tube feeds and possibly due to delayed effects of IV Solu-medrol administration. * Impact now at goal rate of 65cc/hr. Pt remains intubated, sedated. Solu- medrol 40mg IV Q 24 hrs continues. * Will only make minor changes to today's insulin regimen : small increase in Novolog CF and CR doses 5/2 * Patient remains intubated, sedated. * Steroids continue at Solu-Medrol 40mg IV Q 24 hrs * Tube feeds (Impact 1.0) continue to be titrated upwards * BSGs well controlled over last 24 hrs. No further episodes of hypoglycemia noted. * Will titrate basal insulin dose downwards again today as BSGs have not climbed quickly with the addition of continuous tube feeds yesterday PLAN FOR INPATIENT GLYCEMIC CONTROL: * Basal insulin (decrease in dose) * DC Lantus at this time * Bolus insulin (small decrease in dose) * NovoLog per scale Q 4 hrs * Goal Range: Low 120 mg/dL - High 150 mg/dL * Correction Factor: 30 mg/dL/unit * Nutritional / Prandial insulin per carb ratio of 1 unit per 15 grams CHO administered in tube feeds * Reassess insulin needs with each step-down in steroid dose PLAN FOR DISCHARGE: * given his A1c, he will not likely require insulin on discharge if acute stressors resolve and steroids are stopped
[2019-03-18] MEDS: QUETIAPINE FUMARATE 200 MG TAB PO SCH (18:08)
[2019-03-18] MEDS ORDERED: METOPROLOL TARTRATE 1 MG/ML VIAL IV STA (20:37)
[2019-03-18] MEDS: FAMOTIDINE 20 MG in SYRINGE 3 ML IV SCH (21:17)
[2019-03-19] MEDS: LEVALBUTEROL HCL 0.63 MG/3 ML NEB NEB SCH ×4 (01:29→19:36)
[2019-03-19] MEDS: HEPARIN SOD 5,000 UNIT/0.5 ML VIAL SQ SCH ×3 (06:20→21:07)
[2019-03-19 08:04] LABS: Basophils # (auto) 0.01 K/uL (0-0.2); Hematocrit (blood only) 28.5 % (42-52); Hemoglobin 9.2 g/dL (14.0-18.0); Immature Granulocytes # (auto) 0.08 K/uL (0.00-0.02); Immature Granulocytes % (auto) 0.4 %; Lymphocytes # (auto) 1.33 K/uL (1.2-3.4); Lymphocytes % (auto) 6.6 %; Mean Corpuscular Hgb Conc 32.3 g/dL (32-36); Mean Corpuscular Volume 80.1 fL (80-100); Mean Platelet Volume 9.9 fL (7.4-10.4); Monocytes # (auto) 1.37 K/uL (0.11-0.59); Monocytes % (auto) 6.8 %; Neutrophils # (auto) 17.39 K/uL (1.4-6.5); Neutrophils % (auto) 86.2 %; Platelet Count 516 K/uL (130-400); RDW Coefficient of Variation 20.1 % (11.5-14.5); RDW Standard Deviation 57.7 fL (36.4-46.3); Red Blood Count 3.56 M/uL (4.7-6.1); White Blood Count 20.18 K/uL (4.8-10.8)
[2019-03-19] MEDS: risperiDONE 2 MG TABLET PO SCH ×2 (08:07→21:07)
[2019-03-19] MEDS: predniSONE 10 MG TABLET PO SCH (08:07)
[2019-03-19] MEDS: MAGNESIUM OXIDE 400 MG TAB PO SCH (08:07)
[2019-03-19] MEDS: METOPROLOL TARTRATE 50 MG TAB PO SCH ×2 (08:08→21:07)
[2019-03-19] MEDS: NICOTINE 7 MG/24 HR TDSY TD SCH (08:08)
[2019-03-19] MEDS: BENZTROPINE MESYLATE 0.5 MG TAB PO SCH ×2 (08:08→21:06)
[2019-03-19] MEDS: POTASSIUM CHLORIDE 20 MEQ/15 ML UDC PO SCH ×2 (08:08→21:07)
[2019-03-19] MEDS: VALPROIC ACID SOLN 250 MG/5 ML UDC PO SCH ×2 (08:10→21:07)
[2019-03-19 08:37] LABS: Hypochromasia Present; Poikilocytosis Present; Target Cells 1+
[2019-03-19 09:05] LABS: BUN Creatinine Ratio 63.7 (10-20); Calcium 8.7 mg/dl (8.5-10.1); Creatinine Clr Calc Pharmacy 88.6 ml/min; Est GFR (African American) 123.4; Est GFR (Non-African American) 106.5; Potassium 3.3 mmol/L (3.5-5.1)
[2019-03-19] MEDS: INSULIN ASPART 100 UNITS/ML 3 ML PEN SC SCH ×4 (10:09→21:10)
[2019-03-19] MEDS: FAMOTIDINE 20 MG in SYRINGE 3 ML IV SCH (10:10)
--- NOTE | 2019-03-19 14:36 | XRay Report ---
XR chest 1V portable HISTORY: 73 years-old Male Resp distress/aspiration acute respiratory distress COMPARISON: Chest radiograph 03/17/2019, chest CT 03/08/2019. TECHNIQUE: Portable AP view of the chest FINDINGS: The cardiac silhouette is normal in size, unchanged. Calcification of the thoracic aortic arch. Mild pulmonary vascular congestion. Progressively worsened diffuse bilateral mixed interstitial and alveol ar opacities with areas of suggested bronchial wall thickening. There is no pneumothorax, pleural eff usion or overt pulmonary edema. Degenerative changes of the shoulders and spine. Hiatal hernia is bet ter seen on comparison CT of the chest. IMPRESSION: 1. Progressively worsened diffuse mixed interstitial and alveolar opacities are suggestive of multifo shayy pneumonia. Follow-up imaging to document resolution is recommended. 2. Suggestion of mild pulmonary vascular congestion. The above report was generated using voice recognition software. It may contain grammatical, syntax o r spelling errors. Electronically signed by: Silas Mclaughlin M.D. 03/19/2019 2:35 PM
--- NOTE | 2019-03-19 14:49 | Critical Care Progress Note ---
Date of Service March 19, 2019 Supervising Physician Co-Signing Physician Notes Neuro - Waxing and waning mental status -Waxing and waning capacity -I explained risks and benefits of intubation, noninvasive ventilator, CPR, feeding tubes, and I strongly question the patient's ability to comprehend the gravity and risks and benefits of these medical decisions -Patient does not have a surrogate decision-maker, I will consult the ethics team -Patient has been refusing feeding tube placement -Patient continues to be noncompliant with n.p.o. recommendations -If patient were to undergo esophagectomy for his esophageal cancer as proposed he would require feeding tube placement: Does not comprehend insight into requirement of feeding tube -Patient does not appear to understand the risk of recurrent as piration pneumonitis and aspiration pneumonia: Unable to teach back or explain consequences of decisions -Patient does not appear to understand risk of repeated intubation, airway trauma, need for possible tracheostomy: Unable to teach back or explain consequences of decision -At this time patient will be strict n.p.o. and corsafe will be placed again Sedation/analgesia APAP 650 mg p.o. every 4 hours as needed Acute encephalopathy 2/2 hyperammonenemia versus delirium versus history of schizophrenia Continue risperidone 2 mg p.o. twice daily Continue valproic acid 250 mg p.o. twice daily -Follow-up Depakote level Cardiac - Sinus tachycardia improved 50 mg metoprolol twice daily Respiratory - Acute hypoxic respiratory failure ARDS survivor Recurrent aspiration - NT suctioning: dark apple sauce texture removed: 03/19 - Patient recurrently aspiration Treated with empiric Vanco, Zosyn, doxycycline on admission. Completed 7 days of Zosyn () GI - Esophageal cancer with multiple METALIZER evaluations in the past. 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 Patient placed in soft restraints and meds as he pulled out his course safe several times and required re-advancement with KUB confirmation of replacement. Concerns given patient noncompliance, but could benefit from PEG tube ENDO - Adequate glycemic control on ICU protocol, serum glucose 031029 last 24 hours. Continue sliding scale aspart. Was previously on methylprednisolone 40 mg every 8 hours , decreased to 40 mg daily on 03/10, 20 mg daily on 03/15 Prednisone taper as follows: 20 mg x 5 days, followed by 15 mg x 4 days, followed by 10 mg x 4 days, followed by 5 mg x 4 days. HEME - Chronic normocytic normochromic anemia. Hemoglobin stable at 9.1 likely 2/2 chronic disease ID - Aspiration pneumonia treated with 7 days of Zosyn as above. No signs of ongoing infection. LINES/IV ACCESS - PIVs intact. DVT PROPHYLAXIS - Heparin 5000 units 3 times daily Patient critically ill due to aspiration pneumonitis and acute hypoxic respiratory failure I have personally spent 40 minutes of critical care time in the direct management of this patient. This is a life/limb threatening event. This includes time spent evaluating patient, direct bedside care, chart review, placing orders, interpretation of diagnostic studies, discussion with consultants, patient, and/or family members regarding treatment decisions, as well as other required patient management activities. This time is exclusive of all separately billable procedures, and teaching time and separate from and in addition to any other critical care service time. Results & Data Vital Signs (Past 12 Hours) Vital Signs Temp Pulse Pulse Resp BP BP Pulse Ox 03/19/19 11:00 36.5 C 103 H 18 132/75 91 03/19/19 07:30 107 H 22 96 03/19/19 07:00 36.4 C L 94 H 98 H 18 103/68 98 03/19/19 03:25 36.8 C 115 H 22 110/77 96 03/19/19 03:02 114 H
--- NOTE | 2019-03-19 15:09 | Critical Care Progress Note ---
Date of Service March 19, 2019 Assessment & Plan (1) Aspiration into airway: Mr. Bailey is a 73-year-old male with a past medical history of esophageal cancer, pneumonia, tobacco abuse, COPD, schizophrenia, history of GI bleed, hiatal hernia and noncompliance with COMMISSION ASSOCIATE diet texture recommendations who presents to the hospital 03/08 2019 with fever and shortness of breath was found to be febrile with lactic acidosis and acute hypoxic respiratory failure was transferred to the ICU for ARDS. He was clinically stable and downgraded to floor status on 03/18/2019. He has been retransferred to the ICU after an aspiration event after eating ice cream and applesauce. Neuro CAM ICU: Analgesia: APAP 650 mg p.o. every 4 hours as needed, fentanyl 50-100 mcg IV every 2 hours as needed as needed scale pain control History of schizophrenia Continue risperidone 2 mg p.o. twice daily Continue valproic acid 250 mg p.o. twice daily Cardiac Sinus tachycardia with hypertension Continue metoprolol tartrate 50 mg p.o. twice daily Respiratory Acute hypoxic respiratory failure, recently recovered from ARDS 2/ aspiration pneumonia Had been treated with empiric vancomycin, Zosyn, doxycycline on admission and completed 7 days of Zosyn from . He required intubation while he was in the ICU, was extubated, and weaned from BiPAP to oxygen mask. Earlier this afternoon he tried to eat ice cream and applesauce, was found with gurgling upper respiratory noises by nursing staff and airway suction via nasal access returned soto food product. CXR showed Progressively worsened diffuse mixed interstitial and alveolar opacities -Corset was placed and he was transferred back to the ICU for further care. He will receive nutrition via his core safe, it is not safe for him to continue oral feeding. He shows poor judgment and poor insight regarding his feeding, lung condition, and aspiration. GI - Esophageal cancer with multiple COMMISSION ASSOCIATE evaluations in the past. High aspiration risk with recurrent past aspiration events. Nutrition: Coresafe placed tube feeding. Estimated daily caloric need of [id number] kcals per day. Concerns given patient noncompliance, but could benefit from PEG tube - Given waxing and waning mental status will proceed exclusively with NG feeds. Strict n.p.o. RENAL/LYTES - Sodium 141, potassium 3.3 Creatinine 0.53 Replace electrolytes per protocol - No UTI concerns No Eisenberg at this time ENDO - Sliding scale aspart. Glucose checks per ICU protocol History of high-dose steroid use Was previously on methylprednisolone 40 mg every 8 hours , decreased to 40 mg daily on 03/10, 20 mg daily on 03/15 Prednisone taper as follows: Started 03/17/19. 20 mg x 5 days, followed by 15 mg x 4 days, followed by 10 mg x 4 days, followed by 5 mg x 4 days. HEME - - Chronic normocytic normochromic anemia. Hemoglobin stable at 9.1 likely 2/2 chronic disease ID - Aspiration pneumonia treated with 7 days of Zosyn as above. Blood cultures 03/08 with no growth x2 Afebrile -Aspiration event, afebrile at this time. Follow clinically for signs of infe ction with CBC daily. No antibiotics initiated at this time. INTEGUMENTARY - No new, active lesions at this time. Routine ulcer prophylaxis LINES/IV ACCESS - PIVs intact. DVT PROPHYLAXIS - Heparin 5000 units 3 times daily Thank you for allowing us to be part of this patient's care. Please refer to Dr. Griffith's documentation for any further recommendations. Supervising Physician Co-Signing Physician Notes Neuro - Waxing and waning mental status -Waxing and waning capacity -I explained risks and benefits of intubation, noninvasive ventilator, CPR, feeding tubes, and I strongly question the patient's ability to comprehend the gravity and risks and benefits of these medical decisions -Patient does not have a surrogate decision-maker, I will consult the ethics team -Patient has been refusing feeding tube placement -Patient continues to be noncompliant with n.p.o. recommendations -If patient were to undergo esophagectomy for his esophageal cancer as proposed he would require feeding tube placement: Does not comprehend insight into requirement of feeding tube -Patient does not appear to understand the risk of recurrent aspiration pneumonitis and aspiration pneumonia: Unable to teach back or explain consequences of decisions -Patient does not appear to understand risk of repeated intubation, airway trauma, need for possible tracheostomy: Unable to teach back or explain consequences of decision -At this time patient will be strict n.p.o. and corsafe will be placed again Sedation/analgesia APAP 650 mg p.o. every 4 hours as needed Acute encephalopathy 2/2 hyperammonenemia versus delirium versus history of schizophrenia Continue risperidone 2 mg p.o. twice daily Continue valproic acid 250 mg p.o. twice daily -Follow-up Depakote level Cardiac - Sinus tachycardia improved 50 mg metoprolol twice daily Respiratory - Acute hypoxic respiratory failure ARDS survivor Recurrent aspiration - NT suctioning: dark apple sauce texture removed: 03/19 - Patient recurrently aspiration Treated with empiric Vanco, Zosyn, doxycycline on admission. Completed 7 days of Zosyn () GI - Esophageal cancer with multiple COMMISSION ASSOCIATE evaluations in the past. 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 placed tube feeding with impact with a goal rate of 65 cc/h (1560 kcals for estimated daily caloric need of [id number] kcals per day). Patient placed in soft restraints and meds as he pulled out his course safe several times and required re-advancement with KUB confirmation of replacement. Concerns given patient noncompliance, but could benefit from PEG tube ENDO - Adequate glycemic control on ICU protocol, serum glucose [id number] last 24 hours. Continue sliding scale aspart. Was previously on methylprednisolone 40 mg every 8 hours , decreased to 40 mg daily on 03/10, 20 mg daily on 03/15 Prednisone taper as follows: 20 mg x 5 days, followed by 15 mg x 4 days, followed by 10 mg x 4 days, followed by 5 mg x 4 days. HEME - Chronic normocytic normochromic anemia. Hemoglobin stable at 9.1 likely 2/2 chronic disease ID - Aspiration pneumonia treated with 7 days of Zosyn as above. No signs of ongoing infection. LINES/IV ACCESS - PIVs intact. DVT PROPHYLAXIS - Heparin 5000 units 3 times daily Patient critically ill due to aspiration pneumonitis and acute hypoxic respiratory failure I have personally spent 40 minutes of critical care time in the direct management of this patient. This is a life/limb threatening event. This includes time spent evaluating patient, direct bedside care, chart review, placing orders, interpretation of diagnostic studies, discussion with consultants, patient, and/or family members regarding treatment decisions, as well as other required patient management activities. This time is exclusive of all separately billable procedures, and teaching time and separate from and in addition to any other critical care service time. Subjective Was called to bedside by primary team to evaluate Mr. Bailey today. He had been trying to eat applesauce and chocolate ice cream through the openings in his oxygen mask, and was noted by nursing to have wet upper airway sounds audible at bedside. Airway suction via nasal access returned soto food material. Mr. Bailey did not appear to be in emotional distress, but had increased work of breathing with SPO2 of 90% on 15 L oxygen mask. He affirmed that he understood that his eating habits were contributing to his aspiration, pneumonia, and declining lung function. He expressed that he understood continued aspiration would likely harm his lungs and he could require intubation or CPR as a result. Review of Systems Review of Systems: Review of systems unreliable due to cognitive status Constitutional: Denies fever, chills ENT: Denies sore throat, sinus pain Cardiovascular: Denies chest pain, chest pressure, palpitations Respiratory: Endorses shortness of breath, difficulty breathing. Denies cough Gastrointestinal: Endorses abdominal pain, denies nausea, vomiting Genitourinary: Denies pain with urination, urinary urgency, urinary frequency Musculoskeletal: Denies muscle pain Physical Exam Physical Exam: General: Alert, mild respiratory distress, does not answer orientation questions HEENT: Atraumatic, normocephalic. NG coresafe present Pulm: Lungs diffusely rhonchorous, mild wheezes globally. Mildly increased work of breathing, mild tracheal tugging. Cardiac: RRR, -mrg. Radial pulses intact and symmetrical. Abdominal: Nontender on palpation, endorses some stomachache at rest. nondistended, soft. Results & Data Vital Signs (Past 12 Hours) Vital Signs Temp Pulse Pulse Resp BP BP Pulse Ox 03/19/19 11:00 36.5 C 103 H 18 132/75 91 03/19/19 07:30 107 H 22 96 03/19/19 07:00 36.4 C L 94 H 98 H 18 103/68 98 03/19/19 03:25 36.8 C 115 H 22 110/77 96 03/19/19 03:02 114 H Resident Activity Tracking Resident Involvement: Resident Care Provided Care Provided: Adult Hospital Medicine
--- NOTE | 2019-03-19 15:41 | XRay Report ---
XR KUB/Abdomen 1 view CLINICAL HISTORY: Chest x-ray for feeding tube placement COMPARISON STUDY: 03/17/2019 FINDINGS: A core safe feeding tube is visualized with its tip at the level of the gastric cardia. Inc idental note is made of diffuse bilateral pulmonary airspace opacities IMPRESSION: The core safe tube is visualized with its tip projected over the gastric cardia Electronically signed by: Frankie Vela M.D. 03/19/2019 3:39 PM
[2019-03-19] MEDS: QUETIAPINE FUMARATE 200 MG TAB PO SCH (16:35)
[2019-03-19] MEDS ORDERED: Nursing to Pharmacy Communication ONE ×2 (17:26→21:09)
--- NOTE | 2019-03-19 19:14 | Hospitalist Progress Note ---
Date of Service March 19, 2019 Assessment & Plan (1) Acute respiratory failure with hypoxia: Due to aspiration ( after eating chocolate and applesauce) Was on mechanical vent support and extubated on 03/17 On 15 L oxygen with audible breath sound CXR showed progressively worsened diffuse mixed interstitial and alveolar opacities are suggestive of multifocal pneumonia. Just completed course of abx with empiric vancomycin, Zosyn, doxycycline on admission and completed 7 days of Zosyn from /5 case discussed with furnace packer at bedside recommended to transfer to the ICU for close monitor Core safe tube in place Will keep strict NPO for now Refused NG tube placement Not sure if pt understand the risk since he wants to eat will involve ethic to assess pt with decision making Consider Speech eval (2) On mechanically assisted ventilation: Required mechanical ventilation due to increasing hypoxia and hypercapnia S/P extubated on 03/17 Continue 15L oxyegen supplement If respiratory status worsening, will consider intaubation Monitor in the ICU (3) Sepsis: Presented with sepsis likely secondary to pneumonia Completed course of abx Monitor CBC (4) Anemia: Seems to be an anemia of chronic disease Hemoglobin dropped to 6.7 on 03/10 S/P 2 units PRBC on 03/10 Hemoglobin is 9.2 today Stable (5) Multifocal pneumonia: Mostly due to recurrent aspiration CXR today showed progressively worsened diffuse mixed interstitial and alveolar opacities are suggestive of multifocal pneumonia. Just completed course of abx with empiric vancomycin, Zosyn, doxycycline on admission and completed 7 days of Zosyn from / Continue prednisone taper dose If spike fever and WBC trends up, will give another course of abx Encephalopathy secondary Sepsis Mental status appears to be back to baseline CT head negative for acute process Resolved Hyponatremia Possible component of SIADH secondary to pneumonia Na 141 today Resolved Hypertension BP stable Continue metoprolol Esophageal cancer GERD Refused any PEG tube Aspiration precaution Stable Lung Nodule per previous admission:CT showed 9 mm spiculated appearing nodule in the left lower lobe. This is pathologically indeterminant but concerning for neoplasm. Follow up CT chest in 3 month is recommended Schizophrenia Continue usual medications stable Nutrition Will restart on nasogastric tube feeding since pt aspirated today on Ice cream and appleasauce Patient does not want to have a PEG tube placement He has recurrent aspiration and has had multiple speech therapy evaluation and recommendation Consider Speech eval Will keep strict NPO for now DVT prophylaxis SCDs for now in light of recent upper GI bleed, esophageal cancer Disposition Lives in [facility] facility Has no family members and or POA Code Status Full code Subjective Nurse called because patient was having respiratory distress Nurse said that pt had applesauce with chocolate ice cream then aspirated Pt was evaluated at bedside and was found to have upper airway sounds audible at bedside. Respiratory therapist tried to airway suction via nasal that showed chocolate food material during suctioning Pt was saturated above 90% on 15L oxygen Diet Technician Registered at bedside discussed with patient about the risk of aspiration with oral feeding Pt continues to refuse Peg tube and wants to remind full code Decision made to transfer to medical ICU for close monitor Physical Exam Physical Exam: General- respiratory distress Head- atraumatic Eyes- PERRL, EOMI, ENT- oropharynx clear Neck- supple, no JVD Lungs- coarse BS Heart- regular rhythm; no murmur Abdomen- normal bowel sounds, soft, nontender Extremities- no calf tenderness Neuro- alert, oriented, PERRL, EOMI; no facial palsy; no dysarthria Skin- warm & dry Results & Data Vital Signs (Past 12 Hours) Vital Signs Temp Pulse Pulse Resp BP BP BP 03/19/19 18:01 96 H 23 03/19/19 18:00 100 H 24 117/80 03/19/19 17:45 96 H 23 123/76 03/19/19 17:30 97 H 23 122/75 03/19/19 17:16 100 H 23 03/19/19 17:15 102 H 27 H 129/80 03/19/19 17:01 94 H 24 03/19/19 17:00 96 H 24 127/75 03/19/19 16:45 100 H 24 125/82 03/19/19 16:32 84 24 03/19/19 16:30 96 H 28 H 136/79 03/19/19 16:15 103 H 29 H 126/78 03/19/19 16:01 104 H 31 H 03/19/19 16:00 36.5 C 105 H 97 H 29 H 135/77 125/82 03/19/19 15:27 80 03/19/19 15:12 36.7 C 102 H 117/79 03/19/19 14:10 30 H 03/19/19 14:00 28 H 03/19/19 13:55 30 H 03/19/19 11:00 36.5 C 103 H 18 132/75 03/19/19 07:30 107 H 22 03/19/19 07:00 36.4 C L 94 H 98 H 18 103/68 Pulse Ox 03/19/19 18:01 97 03/19/19 18:00 97 03/19/19 17:45 97 03/19/19 17:30 97 03/19/19 17:16 96 03/19/19 17:15 96 03/19/19 17:01 95 03/19/19 17:00 95 03/19/19 16:45 94 03/19/19 16:32 93 03/19/19 16:30 93 03/19/19 16:15 92 03/19/19 16:01 94 03/19/19 16:00 94 03/19/19 15:27 03/19/19 15:12 92 03/19/19 14:10 15 L 03/19/19 14:00 87 L 03/19/19 13:55 83 L 03/19/19 11:00 91 03/19/19 07:30 96 03/19/19 07:00 98
[2019-03-19] MEDS: FAMOTIDINE 20 MG TAB PO SCH (21:07)
[2019-03-20] MEDS: LEVALBUTEROL HCL 0.63 MG/3 ML NEB NEB SCH ×4 (02:15→20:04)
--- NOTE | 2019-03-20 05:17 | Hospitalist Progress Note ---
Date of Service March 20, 2019 Results & Data Vital Signs (Past 12 Hours) Vital Signs Temp Pulse Pulse Resp BP BP Pulse Ox 03/20/19 05:00 88 19 69/35 L 92 03/20/19 04:00 36.7 C 108 H 25 H 101/54 L 96 03/20/19 03:34 113 H 23 97 03/20/19 03:00 111 H 23 103/51 L 96 03/20/19 02:15 112 H 25 H 97 03/20/19 02:00 113 H 24 110/57 L 97 03/20/19 01:00 118 H 24 112/56 L 99 03/20/19 00:00 36.4 C L 80 117 H 25 H 96/48 L 100 03/19/19 23:00 81 25 H 107/59 L 99 03/19/19 22:00 86 26 H 117/62 98 03/19/19 21:00 98 H 23 126/70 100 03/19/19 20:00 36.4 C L 99 H 79 24 127/59 L 94 03/19/19 19:40 20 97 03/19/19 19:37 20 97 03/19/19 19:00 96 H 22 133/76 96 03/19/19 18:01 96 H 23 97 03/19/19 18:00 100 H 24 117/80 97 03/19/19 17:45 96 H 23 123/76 97 03/19/19 17:30 97 H 23 122/75 97
[2019-03-20] MEDS ORDERED: VECURONIUM BROMIDE 10 MG VIAL ONE (05:24)
[2019-03-20 05:31] LABS: iSTAT Allen Test Pass; iSTAT Arterial Blood Gas HCO3 32 meg/L (19-24); iSTAT Arterial Blood Gas pCO2 108 mmHg (35-46); iSTAT Arterial Blood Gas pH 7.08 (7.35-7.45); iSTAT Carbon Dioxide 35 mEq/l (24-31); iSTAT Site R Radial
[2019-03-20] MEDS ORDERED: VECURONIUM BROMIDE 10 MG VIAL IV STA (05:32)
[2019-03-20] MEDS ORDERED: fentaNYL citrate 100 MCG/2 ML VIAL IV ONE (05:33)
[2019-03-20] MEDS ORDERED: MIDAZOLAM HCL 1 MG/ML 2ML VIAL IV PRN (05:44)
[2019-03-20 05:48] LABS: Hematocrit (blood only) 28.6 % (42-52); Mean Corpuscular Hgb Conc 31.5 g/dL (32-36); Mean Corpuscular Volume 84.6 fL (80-100); Platelet Count 474 K/uL (130-400); RDW Coefficient of Variation 20.2 % (11.5-14.5); RDW Standard Deviation 62.3 fL (36.4-46.3); Red Blood Count 3.38 M/uL (4.7-6.1); White Blood Count 34.75 K/uL (4.8-10.8)
[2019-03-20 05:50] LABS: BUN Creatinine Ratio 81.2 (10-20); Calcium 8.8 mg/dl (8.5-10.1); Creatinine Clr Calc Pharmacy 78.3 ml/min; Est GFR (African American) 117.2; Est GFR (Non-African American) 101.2; Potassium 4.9 mmol/L (3.5-5.1)
[2019-03-20] MEDS: INSULIN ASPART 100 UNITS/ML 3 ML PEN SC SCH ×5 (06:00→20:56)
--- NOTE | 2019-03-20 07:13 | XRay Report ---
XR chest 1V portable CLINICAL HISTORY: lines COMPARISON STUDY: Chest radiograph March 19, 2019. FINDINGS: The feeding tube tip projects over the gastric cardia. Tip of endotracheal tube is 3.7 cm a vince the raj. There is no pneumothorax or pleural effusion. Interstitial and alveolar opacities wi thin the lungs are again noted. Slight interval improvement in lung aeration is noted. IMPRESSION: 1. Tip of endotracheal tube 3.7 cm above the raj. 2. Tip of the feeding tube projects within the gastric cardia. The tube could be advanced. 3. Bilateral airspace opacities and interstitial thickening which favors an infectious process. Sligh t interval improvement in lung aeration. Electronically signed by: Mike Hernandez M.D. 03/20/2019 7:11 AM
[2019-03-20] MEDS: HEPARIN SOD 5,000 UNIT/0.5 ML VIAL SQ SCH ×2 (07:25→14:07)
[2019-03-20] MEDS ORDERED: POTASSIUM PHOSPHATE 30 MMOL in SODIUM CHLORIDE 0.9% 500 ML IV ONE (08:30)
[2019-03-20] MEDS ORDERED: SODIUM CHLOR 0.45% + 20MEQ KCL 20 MEQ/1,000 ML BAG IV SCH (08:30)
[2019-03-20] MEDS: risperiDONE 2 MG TABLET PO SCH ×2 (09:18→22:21)
[2019-03-20] MEDS: POTASSIUM CHLORIDE 20 MEQ/15 ML UDC PO SCH (09:18)
[2019-03-20] MEDS: VALPROIC ACID SOLN 250 MG/5 ML UDC PO SCH ×2 (09:18→22:21)
[2019-03-20] MEDS: MAGNESIUM OXIDE 400 MG TAB PO SCH (09:19)
[2019-03-20] MEDS: FAMOTIDINE 20 MG TAB PO SCH ×2 (09:19→22:21)
[2019-03-20] MEDS: NICOTINE 7 MG/24 HR TDSY TD SCH (09:19)
[2019-03-20] MEDS: BENZTROPINE MESYLATE 0.5 MG TAB PO SCH ×2 (09:19→22:21)
[2019-03-20] MEDS: METOPROLOL TARTRATE 50 MG TAB PO SCH (09:19)
[2019-03-20] MEDS: predniSONE 10 MG TABLET PO SCH (09:19)
[2019-03-20] MEDS: fentaNYL citrate 100 MCG/2 ML VIAL IV PRN (09:40)
[2019-03-20] MEDS ORDERED: OPTIRAY 320 125ml IV PRN (09:53)
--- NOTE | 2019-03-20 10:13 | CT Scan Report ---
CT angio chest PE protocol CT DOSE: 293.49 mGy.cm HISTORY: 73 years-old Male with PE ? sternal fracture, known malignancy. Acute respiratory failure TECHNIQUE: Multiple CTA images of the chest were obtained after the intravenous administration of 119 ml Optiray 320. Coronal and sagittal MIPS were obtained from the axial data set and were submitted for review. All measurements were obtained according to NASCET criteria. A dose lowering technique w as utilized adhering to the principles of ALARA. COMPARISON: Chest radiograph of same day, chest CT 03/08/2019. FINDINGS: CTA: Heart is normal in size. Trace pericardial effusion. Coronary arterial calcifications are noted. Ther e is no thoracic aortic aneurysm or dissection. Extensive calcification of the thoracic aorta and pro ximal great vessels which appear patent. The pulmonary arterial tree is opacified to the level of the subsegmental branches. There are several linear nonocclusive filling defects noted within segmental and subsegmental branches of the pulmonary arterial tree within the bilateral upper lobes (please see bookmarks). No central pulmonary emboli identified. CT CHEST: Heterogeneous. The thyroid. Endotracheal tube is noted within the trachea, several centimeters above the rja. An enteric tube is noted with distal tip terminating within the mid gastric body. Mildly prominent bilateral hilar, AP window and subcarinal lymph nodes are present measuring up to 9 mm in s hort axis. Severe emphysema with bilateral bronchial wall thickening and multifocal mucus plugging. Multisegment al multilobar distribution of extensive tree-in-bud nodules and patchy consolidative and groundglass densities. These findings have progressively worsened from comparison chest CT. Mild dependent subseg mental bibasilar atelectasis. Previously described 9 mm solid nodule of the left lower lobe is better seen on comparison study. No acute process of the imaged upper abdomen. Mild generalized body wall edema. Demineralized appeara nce the bones with multilevel degenerative changes of the spine. No definite acute sternal fracture i dentified. IMPRESSION: 1. There are several linear nonocclusive filling defects present within segmental and subsegmental br anches of the pulmonary arterial tree within the upper lobes suggestive of fibrin stranding related t o chronic pulmonary emboli. No central pulmonary emboli identified. 2. No acute aortic pathology. 3. Extensive bilateral tree-in-bud nodules with mixed groundglass and consolidative opacities suggest s bronchiolitis with multifocal pneumonia, progressively worsened from comparison chest CT dated 03/08. 4. Severe emphysema with bronchitis and multifocal mucus plugging. 5. Endotracheal tube terminates several centimeters above the raj. 6. An enteric tube terminates within the mid gastric body. The above report was generated using voice recognition software. It may contain grammatical, syntax o r spelling errors. Electronically signed by: Silas Mclaughlin M.D. 03/20/2019 10:12 AM
[2019-03-20] MEDS ORDERED: PIPERACILLIN/TAZOBACTAM 4.5 GM in DEXTROSE 5% 100 ML IV ONE (12:30)
--- NOTE | 2019-03-20 12:34 | Critical Care Progress Note ---
Date of Service March 20, 2019 Assessment & Plan (1) Cardiac arrest: Mr. Bailey is a 73-year-old male with a past medical history of esophageal cancer, pneumonia, tobacco abuse, COPD, schizophrenia, history of GI bleed, hiatal hernia and noncompliance with KEY OPERATOR diet texture recommendations who presents to the hospital 03/08 2019 with fever and shortness of breath was found to be febrile with lactic acidosis and acute hypoxic respiratory failure was transferred to the ICU for ARDS. He was clinically stable and downgraded to floor status on 03/18/2019. He has been retransferred to the ICU after an aspiration event after eating ice cream and applesauce. He sustained a 5 minute cardiac arrest on 03/20 with ROSC. Neuro CAM ICU: Analgesia: APAP 650 mg p.o. every 4 hours as needed, fentanyl 50-100 mcg IV every 2 hours as needed as needed scale pain control Sedation: Sedation with fentanyl 50 mcg - 100 mcg every 2 hours as needed, Vidaza Pitt 2 mg every 2 hours as needed History of schizophrenia Continue risperidone 2 mg p.o. twice daily Continue valproic acid 250 mg p.o. twice daily - Valproic acid level 22, last 33 on 03/16. Subtherapeutic, +1g load and recheck in 72 hours. May benefit from increase from 250mg BID to 250mg qAM, 500mg qHS in the future. Mental status, assessment of medical competency Mr. Bailey has continued to refuse feeding tube placement, but remains noncompliant with n.p.o. recommendations and speech recommendations. He would require a feeding tube if he were to undergo esophagectomy for his esophageal cancer. He does not show insight or understanding into the requirement of a feeding tube for cancer, and is unable to apply this to his condition. He is also unable to apply the increased risk of recurrent aspiration with pneumonitis and pneumonia to his current medical condition, and is unable to teach back or explain consequences of his decisions. He does not express an understanding of the risks of repeat intubation, airway trauma, and need for possible tracheostomy. He does not apply or show insight for these medical conditions to his condition. Cardiac Sinus tachycardia with hypertension Continue metoprolol tartrate 50 mg p.o. twice daily Respiratory Acute hypoxic respiratory failure, recently recovered from ARDS 2/2 aspiration pneumonia Had been treated with empiric vancomycin, Zosyn, doxycycline on admission and completed 7 days of Zosyn from . He required intubation while he was in the ICU, was extubated, and weaned from BiPAP to oxygen mask. Earlier this afternoon he tried to eat ice cream and applesauce, was found with gurgling upper respiratory noises by nursing staff and airway suction via nasal access returned soto food product. CXR showed Progressively worsened diffuse mixed interstitial and alveolar opacities -Corset was placed and he was transferred back to the ICU for further care. He will receive nutrition via his core safe, it is not safe for him to continue oral feeding. He shows poor judgment and poor insight regarding his feeding, lung condition, and aspiration. -Experienced a CODE BLUE likely secondary to hypercarbic respiratory failure this morning. Zosyn x7 days restarted GI - Esophageal cancer with multiple KEY OPERATOR evaluations in the past. High aspiration risk with recurrent past aspiration events. Nutrition: Coresafe placed tube feeding. Estimated daily caloric need of [id number] kcals per day. Concerns given patient noncompliance, but could benefit from PEG tube - Given waxing and waning mental status will proceed exclusively with NG feeds. Strict n.p.o. See neuro section for notes about - Patient insight into his illness and risk of aspiration RENAL/LYTES - Sodium 144, potassium 4.9, creatinine 0.6 Replace electrolytes per protocol - Eisenberg replaced, 0.5 cc/kg/h output ENDO - Sliding scale aspart. Glucose checks per ICU protocol History of high-dose steroid use Was previously on methylprednisolone 40 mg every 8 hours , decreased to 40 mg daily on 03/10, 20 mg daily on 03/15 Prednisone taper as follows - Started 03/17/19 - 03/17-03/21 20 mg x 5 days - 03/22-03/25 15 mg x 4 days - 03/26-03/29 10mg x4 days - 03/30- 5mg x4 days HEME - - Chronic normocytic normochromic anemia. Hemoglobin stable at 9.8 likely 2/2 chronic disease Chronic pulmonary emboli without central emboli or acute PE Seen on CTA-Chest. Venous duplex LE-Bi shows no DVT. No evidence of acute process. Continue DVT prophylaxsis dose ID - Aspiration pneumonia treated with 7 days of Zosyn as above. Blood cultures 03/08 with no growth x2 Afebrile -Aspiration event, afebrile at this time. Empiric Zosyn x7 days restarted. INTEGUMENTARY - No new, active lesions at this time. Routine ulcer prophylaxis LINES/IV ACCESS - PIVs intact. L A-line in place DVT PROPHYLAXIS - Heparin 5000 units 3 times daily Thank you for allowing us to be part of this patient's care. Please refer to Dr. Griffith's documentation for any further recommendations. (2) Aspiration into airway: Supervising Physician Co-Signing Physician Notes Neuro - Acute encephalopathy Sedation: Versed and fentanyl pushes -Patient does not have a surrogate decision-maker, Ethics team -Patient has been refusing feeding tube placement -Patient continues to be noncompliant with n.p.o. recommendations -If patient were to undergo esophagectomy for his esophageal cancer as proposed he would require feeding tube placement: Does not comprehend insight into requirement of feeding tube -Patient does not appear to understand the risk of recurrent aspiration pneumonitis and aspiration pneumonia: Unable to teach back or explain consequences of decisions -Patient does not appear to understand risk of repeated intubation, airway trauma, need for possible tracheostomy: Unable to teach back or explain consequences of decision Sedation/analgesia APAP 650 mg p.o. every 4 hours as needed Continue risperidone 2 mg p.o. twice daily Continue valproic acid 250 mg p.o. twice daily -Repeat Depakote level low, will give 1 g load follow-up Depakote level in 72 hours Cardiac - Sinus tachycardia improved 50 mg metoprolol twice daily Cardiac arrest -Trend troponins, repeat limited echo Respiratory - Acute hypoxic respiratory failure ARDS survivor Recurrent aspiration - NT suctioning: dark apple sauce texture removed: 03/19 - Patient recurrently aspiration Treated with empiric Vanco, Zosyn, doxycycline on admission. Completed 7 days of Zosyn () -Starting Zosyn for another 7-day course -Bronchoscopy results GI - Esophageal cancer with multiple KEY OPERATOR evaluations in the past. 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 Concerns given patient noncompliance, but could benefit from PEG tube ENDO - Adequate glycemic control on ICU protocol, serum glucose [id number] last 24 hours. Continue sliding scale aspart. Prednisone taper as follows: 20 mg x 4 of 5 days, followed by 15 mg x 4 days, followed by 10 mg x 4 days, followed by 5 mg x 4 days. HEME - Chronic normocytic normochromic anemia. 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 ID - Aspiration pneumonia treated with 7 days of Zosyn as above. - Started empiric zosyn LINES/IV ACCESS - PIVs intact. Left radial arterial line DVT PROPHYLAXIS - Heparin 5000 units 3 times daily Patient critically ill due to aspiration pneumonitis and acute hypoxic respiratory failure I met the patient's casework supervisor Rosa joiners supervisor: [phone] (Zonia) Our case management and patient's casework supervisor attempting to locate a person who could act as his surrogate medical decision maker I have personally spent 55 minutes of critical care time in the direct management of this patient. This is a life/limb threatening event. This includes time spent evaluating patient, direct bedside care, chart review, placing orders, interpretation of diagnostic studies, discussion with consultants, patient, and/or family members regarding treatment decisions, as well as other required patient management activities. This time is exclusive of all separately billable procedures, and teaching time and separate from and in addition to any other critical care service time. Subjective Patient overnight suffered a cardiac arrest of approximately 5 minutes this is likely secondary to hypercarbia. Patient currently agitated on mechanical ventilator Mr. Bailey had a CODE BLUE called for cardiac arrest lasting~5 minutes in the setting of hypercarbic respiratory failure. ROSC was achieved following administration of epinephrine and CPR. He is intubated this morning, and remains critically ill and is unable to give history. Review of Systems Review of Systems: Unobtainable due to cognitive status and Unobtainable due to endotracheal tube Physical Exam Physical Exam: General: Opens eyes to stimulus. nontoxic. Glascow Coma Scale: Eyes: 2, Verbal 1T, Motor 5, Total AT Skin: Warm, dry, Head: Atraumatic Ears, nose, mouth and throat: Airway obscured by endotracheal tube Cardiovascular: Normal peripheral perfusion Respiratory: Coarse sounds bilaterally Gastrointestinal: Non distended Musculoskeletal: No deformity Results & Data Vital Signs (Past 12 Hours) Vital Signs Temp Pulse Pulse Resp BP Pulse Ox 03/20/19 06:42 122 H 111/63 03/20/19 05:35 123 H 103/63 03/20/19 05:30 112 H 106/58 L 03/20/19 05:25 118 H 140 H 20 103/49 L 100 03/20/19 05:20 114 H 136/73 03/20/19 05:14 77 10 L 44/24 L 89 L 03/20/19 05:00 88 19 69/35 L 92 03/20/19 04:00 36.7 C 108 H 25 H 101/54 L 96 03/20/19 03:34 113 H 23 97 03/20/19 03:00 111 H 23 103/51 L 96 03/20/19 02:15 112 H 25 H 97 03/20/19 02:00 113 H 24 110/57 L 97 03/20/19 01:00 118 H 24 112/56 L 99 03/20/19 00:00 36.4 C L 80 117 H 25 H 96/48 L 100 03/19/19 23:00 81 25 H 107/59 L 99 03/19/19 22:00 86 26 H 117/62 98 03/19/19 21:00 98 H 23 126/70 100 03/19/19 20:00 36.4 C L 99 H 79 24 127/59 L 94 03/19/19 19:40 20 97 03/19/19 19:37 20 97 03/19/19 19:00 96 H 22 133/76 96 Resident Activity Tracking Resident Involvement: Resident Care Provided Care Provided: Adult Hospital Medicine
--- NOTE | 2019-03-20 12:42 | Procedure Note ---
Procedure Note Date of Service March 20, 2019 Procedure Date: Noted above Procedure: Endotracheal intubation Pre-procedure Diagnosis: CODE BLUE Post-procedure Diagnosis: same as above Prior to Procedure: Informed Consent: emergent Attending Staff: Katie Griffith DO The identity of the patient was confirmed and a bedside time out was performed. Description of Procedure: Patient was evaluated and required intubation for impending respiratory failure. The patient was prepared in the usual fashion. A MAC 3 laryngoscope was used. A 7.3 mm inner diameter endotrachial tube was placed endotracheally to 23 cm at the teeth. A grade 1 view was obtained. The endotracheal tube was noted to pass through the vocal cords. Chest rise was bilateral. Bilateral breath sounds were heard without air sounds in the abdomen. Mist was noted in the endotracheal tube. End-tidal CO2 measurement was positive. Chest x-ray shows proper endotracheal tube placement. Complications: White purulent aspiration Findings: Not applicable Specimens: Not applicable Estimated blood loss: Zero Coding
--- NOTE | 2019-03-20 12:43 | Procedure Note ---
Procedure Note Date of Service March 20, 2019 Procedure date: Noted above Procedure: Radial artery cannulation Pre-procedure Diagnosis: Need for invasive monitoring, frequent blood draws Post-procedure Diagnosis: same as above Prior to Procedure: Informed Consent: Emergent Attending Staff: Katie Griffith DO Skin Prep: Chlorhexidine Anesthesia: 3 mL 1% lidocaine without epinephrine The identity of the patient was confirmed and a bedside time out was performed. Description of Procedure: After sterile prep and sterile drape utilizing standard sterile technique the superficial skin of the left radial artery was anesthetized. The target artery was identified via dynamic ultrasound guidance and entered with a 20-gauge arrow Angiocath. Pulsatile bright red blood return was noted. Via modified Seldinger technique the self-contained guidewire was advanced and the Angiocath advanced over the guidewire. The guidewire was removed and brisk arterial blood return was noted. The pressure monitor was connected, and the arterial line was secured via silk suture. A sterile dressing was then applied. Complications: None Estimated blood loss: Trace Patient tolerated the procedure well. Procedure Date: March 20, 2019 Procedure: Procedural Ultrasound Indication: Arterial access for invasive monitoring Attending: Katie Griffith DO Artery visualized: Yes Pulsatility of artery: Yes Artery patent: Yes Line confirmed in artery with ultrasound: Yes Impression: Successful arterial cannulation Images obtained are saved for permanent record Coding
--- NOTE | 2019-03-20 12:45 | Procedure Note ---
Procedure Note Date of Service March 20, 2019 Procedure date: Noted above Procedure: CPR Pre-procedure Diagnosis: CODE BLUE Post-procedure Diagnosis: same as above Attending Staff: Katie Griffith DO Description of Procedure: Please refer to code flowsheet for additional details. Patient received 1 round of ACLS drugs and CPR and had return of spontaneous circulation. Complications: Possible sternum and rib fractures CTA of the chest is ordered to evaluate for possible sternal fracture and possible pulmonary embolism Coding
--- NOTE | 2019-03-20 12:49 | Procedure Note ---
Procedure Note Date of Service March 20, 2019 Procedure date: Noted above Procedure: fiberoptic bronchoscopy Pre-procedure indication: CODE BLUE, respiratory arrest, aspiration into airways Post-procedure Diagnosis: same as above Prior to Procedure: Informed Consent: Emergent Attending Staff: Katie Griffith DO Skin Prep: Not applicable Anesthesia: IV Versed and fentanyl The identity of the patient was confirmed and a bedside time out was performed. Description of Procedure: Fiberoptic bronchoscopy was performed via endotracheal tube. Bronchioalveolar lavage right middle lobe was performed. Findings included: White purulent secretions and essentially all airways, mucoid impaction in the right lower and left lower bronchi stents of suctioning required Complications: None Specimens: Bronchial washings sent for culture and Gram stain, cytology, fungal elements, and AFB stain and culture. Estimated blood loss: Zero Coding
[2019-03-20] MEDS ORDERED: VALPROIC ACID SOLN 500 MG/10 ML UDC PO ONE (13:00)
--- NOTE | 2019-03-20 14:49 | Ultrasound Report ---
BILATERAL LOWER EXTREMITY VENOUS DOPPLER HISTORY: Likely chronic pulmonary emboli with respiratory failure. Screening study for thrombus [facility] e. r/o dvt COMPARISON STUDY: CTA of the chest of same day. FINDINGS: There is normal compressibility, flow, and augmentation within the bilateral lower extremit y deep venous systems. IMPRESSION: Sonographic evidence of deep venous thrombosis within the right or left lower extremity. Electronically signed by: Silas Mclaughlin M.D. 03/20/2019 2:48 PM
[2019-03-20] MEDS ORDERED: PIPERACILL/TAZOBAC CONSULT ACTIVE PRN (15:34)
[2019-03-20] MEDS: FIBERSOURCE HN 1.2 CAL 1000 ML BAG PO SCH (16:18)
[2019-03-20] MEDS: QUETIAPINE FUMARATE 200 MG TAB PO SCH (16:18)
[2019-03-20] MEDS ORDERED: Heparin IV Standard *NO* Bolus IV ONE (16:23)
[2019-03-20] MEDS ORDERED: ASPIRIN 81 MG CHEW NG STA (16:28)
[2019-03-20] MEDS ORDERED: METOPROLOL TARTRATE 1 MG/ML VIAL IV ONE (16:32)
[2019-03-20] MEDS ORDERED: Heparin Adult STANDARD Wt-Based Dextrose 5% 25,000 units/500 mL IV SCH (16:45)
--- NOTE | 2019-03-20 16:55 | Cardiology Consultation ---
Date of Consultation March 20, 2019 Assessment & Plan (1) Left ventricular systolic dysfunction: No left ventricular systolic dysfunction noted. The patient has a mild elevation his troponin of 0.4, but did have a cardiopulmonary arrest this morning requiring a brief episode of CPR. CT of the chest reveals significant bullous emphysema, stable 9 mm lung nodule, possible nonocclusive thrombus in the pulmonary circulation, and coronary artery calcification. The patient is on ventilator support for the second time his hospital stay. Patient has been found to have newly diagnosed LV systolic dysfunction, however he has not had a prior echocardiogram at this institution. I do concerns that he does have a mildly elevated troponin, and ischemic EKG. I initially plan to start unfractionated heparin due to concerns of myocardial ischemia, but upon review of his chart, I have found his extensive history of esophageal carcinoma with past GI bleeding, and his hemoglobin is 9 to start off with. I think it is most prudent therefore to hold off on systemic anticoagulation. This had been started, but I am going to stop his unfractioned heparin and place him back on DVT prophylaxis cutaneous heparin. I will also hold off on treating him with daily aspirin. Plan on starting low-dose IV metoprolol for heart rate and blood pressure control. Review of his chart, patient certainly has multiple medical problems, and his cardiac condition likely denotes adding to his poor prognosis. History of Present Illness Attending Physician: Tyrel López MD History of Present Illness Omari Bailey is a 73 year old male seen in cardiology consultation per the request of Dr Griffith for the evaluation of abnormal echocardiogram. Patient has multiple recent admissions. For this hospital stay he presented via the emergency room on 03/08/2019 from [facility] for complaint of shortness of breath and cough. He was febrile on admission and hypoxic. He has had heavy multifocal pneumonia. His condition worsened prompting endotracheal intubation and ventilator support on 03/10/2019. He was subsequently successfully intubated. This morning he was transferred back to the intensive care unit for progressive shortness of breath. At approximately 515 a.m., he became bradycardic and suffered a cardiopulmonary arrest. CPR was initiated and with ACLS medications including atropine, spontaneous circulation returned. He was reintubated, and his oxygen saturations are stable on FiO2 of 40%. An echocardiogram was performed as ordered by the critical care service today for further assessment and is found to have moderate left ventricular systolic dysfunction with an ejection fraction in the range of 30-35%. The left ventricular hypokinesis is global, but does seem to spare the basal segments to some degree. There is also moderate diffuse right ventricular hypokinesis. A CT of the chest performed after the event today revealed stranding in the pulmonary arteries suggestive of possible nonocclusive thrombus. Lower extremity venous duplex was negative for DVT. Patient has an apparent history of paranoid schizophrenia, COPD, and esophageal adenocarcinoma. Esophageal adenocarcinoma was diagnosed in November 2018. Treatment has been delayed due to his multiple hospital stays. He has recurrent aspiration, and is apparently declined a feeding tube. Currently he is on the ventilator and therefore his history is obtained from review of his records. Allergies Allergy/AdvReac Type Severity Reaction Status Date / Time buspirone Allergy Unknown Verified 03/08/19 08:32 clonazepam Allergy Unknown unknown Verified 03/08/19 08:32 clozapine Allergy Unknown Verified 03/08/19 08:32 Home Medications Home Medications Medication Instructions Recorded Confirmed Type Dairy Relief 9,000 unit PO QID 09/09/18 03/08/19 History acetaminophen [Acetaminophen Extra 1,000 mg PO Q8H PRN 09/09/18 03/08/19 History Strength] albuterol sulfate [Ventolin HFA] 2 puff INHALATION QID PRN 09/09/18 03/08/19 History calcium carbonate [Calcium Antacid] 200 - 400 mg PO DAILY 09/09/18 03/08/19 History guaifenesin [Mucinex] 600 mg PO BID PRN 09/09/18 03/08/19 History metoprolol succinate 25 mg PO QAM 09/09/18 03/08/19 History omeprazole 40 mg PO QAM 09/09/18 03/08/19 History quetiapine 400 mg PO QPM 09/09/18 03/08/19 History ranitidine HCl 150 mg PO BID 09/09/18 03/08/19 History trazodone 100 mg PO HS 09/09/18 03/08/19 History Preparation H 1 applic ND TID PRN 10/16/18 03/08/19 History ipratropium bromide 0.5 mg NEB Q6R PRN #75 ml 10/19/18 03/08/19 Rx potassium chloride 10 meq PO BID 10/28/18 03/08/19 History Reguloid 1 tsp PO DAILY PRN 02/26/19 04/28/19 History alum-mag hydroxide-simeth [Rulox] 10 ml PO Q4H PRN 01/06/19 03/08/19 History diphenhydramine HCl [Banophen] 25 mg PO HS PRN 01/06/19 03/08/19 History polyethylene glycol 3350 [Miralax] 17 gm PO DAILY PRN 01/22/19 03/08/19 History benztropine 0.5 mg PO BID 02/11/19 03/08/19 History divalproex 250 mg PO BID 02/11/19 03/08/19 History risperidone 2 mg PO BID 02/11/19 03/08/19 History Patient History Medical History Difficult intubation Esophageal cancer (Acute) History of esophageal cancer (Chronic) 11/20/18 EGD: Nodular ulcerated lesion. EUS: Mass lower third esophagus. Biopsies positive for adenocarcinoma. Paranoid schizophrenia (Chronic) COPD (chronic obstructive pulmonary disease) (Chronic) HTN (hypertension) (Chronic) GERD (gastroesophageal reflux disease) (Chronic) Tobacco abuse (Chronic) Kevin esophagus (Chronic) GI bleed Sepsis Surgical History History of esophagogastroduodenoscopy (EGD) (Chronic) History of skin graft (Chronic) as child History of bowel resection (Chronic) "for diverticulitis " in 2009 Family History Mother Stroke Thyroid disorder Father Heart attack Other Heart disease Social History Preferred Language: Nepali Communication Ability: Effective Visual Impairment: No Limitations Post Form Remover Required: No Beliefs That Will Affect Care: Orthodox Orthodox Beliefs: Oriental orthodox Current Living Situation: Personal Care Facility Current Living Situation Comment: lives at [facility] Other Information That Helps Us Care for You: No Feels Safe at Home: Yes Safety Concerns: Feels Safe At This Time Smoking Status: Current every day smoker Tobacco Type: cigarettes Cigarettes Per Day: 20 Do You Dip or Chew Tobacco: No Smoking End Date: Nov 2018 Second Hand Exposure: No Tobacco Cessation Education Requested by Patient: No Hx Alcohol Use: No Hx Substance Use: No Review of Systems Review of Systems: Review systems unobtainable due to the patient's mental status Physical Exam Constitutional: + ill appearing and + cachectic Respiratory: Auscultation: + diminished lung sounds; no crackles Cardiovascular: Rate/Rhythm: + tachycardic Heart Sounds: no murmur Vessels: no JVD Extremities: no edema Gastrointestinal (Abdomen): normal bowel sounds, soft, nontender, no hepatosplenomegaly Neurologic: moves all extremities Results & Data Vital Signs (Past 12 Hours) Vital Signs Temp Pulse Pulse Resp BP BP Pulse Ox 03/20/19 16:33 114 H 134/51 L 03/20/19 15:13 118 H 25 H 94 03/20/19 15:12 130/49 L 03/20/19 14:20 111 H 115/63 95 03/20/19 14:15 116 H 130/68 96 03/20/19 14:10 114 H 125/69 95 03/20/19 14:05 114 H 124/71 95 03/20/19 14:01 112 H 95 03/20/19 14:00 112 H 111/65 95 03/20/19 13:55 111 H 119/64 95 03/20/19 13:50 114 H 125/68 95 03/20/19 13:45 113 H 125/69 95 03/20/19 13:40 107 H 107/61 95 03/20/19 13:35 107 H 118/65 95 03/20/19 13:31 107 H 95 03/20/19 13:30 107 H 115/62 95 03/20/19 13:25 110 H 122/68 95 03/20/19 13:20 113 H 125/70 95 03/20/19 13:15 108 H 120/67 95 03/20/19 13:10 110 H 128/72 95 03/20/19 13:05 110 H 133/74 96 03/20/19 13:01 103 H 96 03/20/19 13:00 104 H 115/65 96 03/20/19 12:55 105 H 125/68 96 03/20/19 12:50 103 H 116/64 96 03/20/19 12:45 99 H 118/62 96 03/20/19 12:40 103 H 115/62 96 03/20/19 12:35 96 H 114/60 97 03/20/19 12:30 95 H 112/59 L 97 05/10/19 12:25 96 H 109/59 L 96 03/20/19 12:20 95 H 116/62 97 03/20/19 12:15 90 102/57 L 95 03/20/19 12:10 89 104/55 L 95 03/20/19 12:05 89 102/57 L 95 03/20/19 12:01 90 95 03/20/19 12:00 90 103/55 L 95 03/20/19 11:55 86 102/54 L 95 03/20/19 11:51 87 95 03/20/19 11:50 87 99/55 L 95 03/20/19 11:45 89 100/55 L 95 03/20/19 11:40 85 94/51 L 95 03/20/19 11:35 88 94/52 L 95 03/20/19 11:34 120/39 L 03/20/19 11:31 86 95 03/20/19 11:30 89 93/51 L 95 03/20/19 11:25 93 H 20 98/56 L 98 03/20/19 11:20 90 87/49 L 98 03/20/19 11:15 95 H 87/50 L 98 03/20/19 11:10 97 H 91/52 L 99 03/20/19 11:05 86 88/49 L 98 03/20/19 11:01 86 98 03/20/19 11:00 90 81/46 L 98 03/20/19 10:55 95 H 79/48 L 98 03/20/19 10:50 98 H 85/48 L 98 03/20/19 10:45 102 H 90/53 L 99 03/20/19 10:40 102 H 99/52 L 99 03/20/19 10:35 104 H 107/57 L 99 03/20/19 10:31 104 H 99 03/20/19 10:30 106 H 109/58 L 100 03/20/19 10:25 103 H 108/56 L 99 03/20/19 10:20 105 H 105/55 L 100 03/20/19 10:15 108 H 107/59 L 03/20/19 10:10 100/55 L 03/20/19 10:05 100/53 L 03/20/19 10:00 100/48 L 03/20/19 09:30 108 H 05/10/19 09:25 117 H 127/66 96 03/20/19 09:20 114 H 116/62 97 03/20/19 09:15 113 H 113/62 96 03/20/19 09:10 112 H 115/60 96 03/20/19 09:05 105 H 102/57 L 94 03/20/19 09:01 105 H 94 03/20/19 09:00 103 H 98/55 L 94 03/20/19 08:55 96 H 99/51 L 93 03/20/19 08:50 100 H 95/53 L 94 03/20/19 08:45 103 H 99/52 L 96 03/20/19 08:40 104 H 99/54 L 98 03/20/19 08:35 105 H 107/58 L 88 L 03/20/19 08:31 103 H 89 L 03/20/19 08:30 102 H 104/56 L 89 L 03/20/19 08:25 97 H 100/53 L 88 L 03/20/19 08:20 89 101/47 L 91 03/20/19 08:15 37.4 C 100 H 96/51 L 95 03/20/19 08:10 103 H 98/54 L 96 03/20/19 08:06 107 H 96/54 L 99 03/20/19 08:00 113 H 03/20/19 07:56 111 H 103/58 L 03/20/19 07:55 108 H 20 100 03/20/19 07:50 105 H 108/61 03/20/19 07:00 110 H 20 115/66 100 03/20/19 06:55 110 H 20 119/65 100 03/20/19 06:45 111 H 20 100 03/20/19 06:42 122 H 111/63 03/20/19 06:15 112 H 20 120/67 100 03/20/19 06:10 104 H 20 126/69 100 03/20/19 06:05 98 H 20 129/67 100 03/20/19 06:00 109 H 20 118/68 100 03/20/19 05:55 110 H 20 118/68 03/20/19 05:50 119 H 20 120/68 100 03/20/19 05:45 120 H 20 125/72 100 03/20/19 05:35 123 H 103/63 03/20/19 05:30 112 H 106/58 L 03/20/19 05:25 118 H 140 H 20 103/49 L 100 03/20/19 05:20 114 H 136/73 03/20/19 05:14 77 10 L 44/24 L 89 L 03/20/19 05:00 88 19 69/35 L 92 Laboratory Results Cardiac Enzymes 03/20/19 Range/Units 12:32 Troponin I 0.420 H* (0-0.045) ng/ml CBC 03/20/19 Range/Units 05:01 WBC 34.75 H* D (4.8-10.8) K/uL RBC 3.38 L (4.7-6.1) M/uL Hgb 9.0 L (14.0-18.0) g/dL Hct 28.6 L (42-52) % Plt Count 474 H (130-400) K/uL Comprehensive Metabolic Panel 03/20/19 Range/Units 05:01 Sodium 144 (136-145) mmol/L Potassium 4.9 D (3.5-5.1) mmol/L Chloride 112 H (98-107) mmol/L Carbon Dioxide 33 H (21-32) mmol/L BUN 49 H (7-18) mg/dl Creatinine 0.60 (0.6-1.4) mg/dl Glucose 112 H (70-99) mg/dl Calcium 8.8 (8.5-10.1) mg/dl Intake and Output 03/20/19 03/20/19 03/20/19 06:59 14:59 22:59 Intake Total 0 / 100 120 / 120 Output Total 325 / 603 350 / 445 95 / 445 Balance -325 / -503 -350 / -325 25 / -325 Intake: IV 120 / 120 Zosyn 4.5 gm In D5 100 ml @ 200 120 / 120 mls/hr IV NOW ONE Rx#:[id number] Oral 0 / 0 Output: Urine Amount (Catheter) 325 / 600 350 / 445 95 / 445 Eisenberg/Indwelling 325 / 600 350 / 445 95 / 445 Other: Weight 46.4 kg 46.4 kg Patient Weight 03/21/19 06:59 Weight 46.4 kg Diagnostic Findings EKG performed today 03/20/2019 at 1619 revealed sinus tachycardia 110 bpm, and age-indeterminate anterior infarction cannot be excluded based on poor R wave progression in leads V1 to V3, ST and T wave abnormality consistent with inferolateral ischemia noted. Compared to the prior EKG dated 03/16/2019, the lateral ST segment depression is unchanged, ST segment in V3 is actually improved. There however is new mild ST depression and T wave inversions noted in the inferior leads.
[2019-03-20] MEDS ORDERED: METOPROLOL TARTRATE 1 MG/ML VIAL IV SCH (17:00)
[2019-03-20 17:10] LABS: INR 1.2 (0.9-1.1); Partial Thromboplastin Time 27.6 Seconds (21.0-31.0); Prothrombin Time 11.8 Seconds (9.0-12.0)
[2019-03-20 17:33] LABS: iSTAT Arterial Blood Gas HCO3 32 meg/L (19-24); iSTAT Arterial Blood Gas pCO2 42 mmHg (35-46); iSTAT Carbon Dioxide 34 mEq/l (24-31); iSTAT FiO2 40 %; iSTAT Site Art Line
--- NOTE | 2019-03-20 17:59 | Hospitalist Progress Note ---
Date of Service March 20, 2019 Assessment & Plan (1) Cardiac arrest: Early this morning he became bradycardic and suffered a cardiopulmonary arrest. Code blue called and CPR was initiated and with ACLS medications Was intubated now on vent support ECHO showed moderate global hypokinesis of LV with EF 30-35% Continue monitor closely in the ICU (2) Acute respiratory failure with hypoxia: Due to aspiration ( after eating chocolate and applesauce) Was on mechanical vent support and extubated on 03/17 On 15 L oxygen with audible breath sound CXR showed progressively worsened diffuse mixed interstitial and alveolar opacities are suggestive of multifocal pneumonia. Completed course of abx with empiric vancomycin, Zosyn, doxycycline on admission and completed 7 days of Zosyn case discussed with director of search engine marketing at bedside recommended to transfer to the ICU for close monitor Core safe tube in place Will keep strict NPO for now Refused NG tube placement Not sure if pt understand the risk since he wants to eat will involve ethic to assess pt with decision making Consider Speech eval 03/20 Had a cardiac arrest early this morning Re-intubated this morning on Vent support CTA chest showed everal linear nonocclusive filling defects present within segmental and subsegmental branches of the pulmonary arterial tree within the upper lobes suggestive of fibrin stranding related to chronic pulmonary emboli. Extensive bilateral tree-in-bud nodules with mixed ground glass and consolidative opacities Pan Washer Hand on board Continue prednisone Continue monitor closely Ethic consult pending (3) On mechanically assisted ventilation: Required mechanical ventilation due to increasing hypoxia and hypercapnia S/P extubated on 03/17 and reintubated today Monitor in the ICU (4) Elevated troponin: Troponin 0.4 Might be relating to cardiopulmonary arrest this morning and required CPR Cardiology on board Was starting on heparin drip that was discontinued as well as aspirin due to hx esophageal carcinoma with past GI bleeding ECHO showed moderate global hypokinesis of LV with EF 30-35% Starting on IV metoprolol Will trend troponin (5) Sepsis: Presented with sepsis likely secondary to pneumonia Completed course of abx Monitor CBC (6) Anemia: Seems to be an anemia of chronic disease Hemoglobin dropped to 6.7 on 03/10 S/P 2 units PRBC on 03/10 Hemoglobin is 9 today Stable (7) Multifocal pneumonia: Mostly due to recurrent aspiration CXR today showed progressively worsened diffuse mixed interstitial and alveolar opacities are suggestive of multifocal pneumonia. Just completed course of abx with empiric vancomycin, Zosyn, doxycycline on admission and completed 7 days of Zosyn from / Continue prednisone taper dose WBC elevated to 34 Encephalopathy secondary Sepsis Mental status appears to be back to baseline CT head negative for acute process Resolved Hyponatremia Possible component of SIADH secondary to pneumonia Na 141 today Resolved Hypertension BP stable Continue metoprolol Esophageal cancer GERD Refused any PEG tube Aspiration precaution Stable Lung Nodule per previous admission:CT showed 9 mm spiculated appearing nodule in the left lower lobe. This is pathologically indeterminant but concerning for neoplasm. Follow up CT chest in 3 month is recommended Schizophrenia Continue usual medications stable Nutrition Will restart on nasogastric tube feeding since pt aspirated today on Ice cream and appleasauce Patient does not want to have a PEG tube placement He has recurrent aspiration and has had multiple speech therapy evaluation and recommendation Consider Speech eval Will keep strict NPO for now DVT prophylaxis SCDs for now in light of recent upper GI bleed, esophageal cancer Disposition Lives in [facility] facility Has no family members and or POA Code Status Full code Disposition Monitor in the ICU on Vent support Subjective Pt was seen and examined Pt had a cardiac arrest early this morning Code blue called and lasted about 5 minutes Intubated on vent support Not on any sedation drip Physical Exam Physical Exam: General- respiratory distress Head- atraumatic Eyes- PERRL, EOMI, ENT- Intubated Neck- supple, no JVD Lungs- coarse BS Heart- regular rhythm; no murmur Abdomen- normal bowel sounds, soft, nontender Extremities- no calf tenderness Neuro- eyes closed, moves upper extremities Skin- warm & dry Results & Data Vital Signs (Past 12 Hours) Vital Signs Temp Pulse Pulse Resp BP BP Pulse Ox 03/20/19 17:01 95 H 95 03/20/19 17:00 99 H 86/46 L 95 03/20/19 16:55 97 H 82/46 L 95 03/20/19 16:50 95 H 82/48 L 96 03/20/19 16:45 90 77/43 L 94 03/20/19 16:40 89 79/46 L 94 03/20/19 16:35 109 H 108/60 95 03/20/19 16:33 114 H 134/51 L 03/20/19 16:31 117 H 96 03/20/19 16:30 109 H 122/68 96 03/20/19 16:25 109 H 115/62 96 03/20/19 16:20 109 H 118/67 96 03/20/19 16:15 103 H 113/63 96 03/20/19 16:10 106 H 110/61 96 03/20/19 16:05 107 H 112/61 96 03/20/19 16:01 105 H 96 03/20/19 16:00 105 H 110/58 L 96 03/20/19 15:55 108 H 114/64 96 03/20/19 15:50 106 H 114/65 96 03/20/19 15:45 103 H 104/59 L 96 03/20/19 15:40 105 H 113/60 96 03/20/19 15:35 105 H 112/60 96 03/20/19 15:31 107 H 96 03/20/19 15:30 105 H 108/61 96 03/20/19 15:25 106 H 109/62 96 03/20/19 15:20 115 H 128/70 96 03/20/19 15:15 111 H 122/65 96 03/20/19 15:13 118 H 25 H 94 03/20/19 15:12 130/49 L 03/20/19 15:10 103 H 106/59 L 95 03/20/19 15:05 105 H 109/62 96 03/20/19 15:01 124 H 98 03/20/19 15:00 98 H 93/55 L 95 03/20/19 14:55 105 H 103/61 96 03/20/19 14:50 101 H 100/55 L 96 03/20/19 14:45 103 H 90/52 L 96 03/20/19 14:40 105 H 97/57 L 96 03/20/19 14:36 112 H 113/71 97 03/20/19 14:31 107 H 95 03/20/19 14:30 108 H 98/58 L 94 03/20/19 14:25 112 H 110/65 94 03/20/19 14:21 112 H 95 03/20/19 14:20 111 H 115/63 95 03/20/19 14:15 116 H 130/68 96 03/20/19 14:10 114 H 125/69 95 03/20/19 14:05 114 H 124/71 95 03/20/19 14:01 112 H 95 03/20/19 14:00 112 H 111/65 95 03/20/19 13:55 111 H 119/64 95 03/20/19 13:50 114 H 125/68 03/20/19 13:45 113 H 125/69 03/20/19 13:40 107 H 107/61 95 03/20/19 13:35 107 H 118/65 03/20/19 13:31 107 H 03/20/19 13:30 107 H 115/62 03/20/19 13:25 110 H 122/68 03/20/19 13:20 113 H 125/70 03/20/19 13:15 108 H 120/67 03/20/19 13:10 110 H 128/72 03/20/19 13:05 110 H 133/74 96 03/20/19 13:01 103 H 96 03/20/19 13:00 104 H 115/65 96 03/20/19 12:55 105 H 125/68 96 03/20/19 12:50 103 H 116/64 96 03/20/19 12:45 99 H 118/62 96 03/20/19 12:40 103 H 115/62 96 03/20/19 12:35 96 H 114/60 97 03/20/19 12:30 95 H 112/59 L 97 03/20/19 12:25 96 H 109/59 L 96 03/20/19 12:20 95 H 116/62 97 03/20/19 12:15 90 102/57 L 03/20/19 12:10 89 104/55 L 03/20/19 12:05 89 102/57 L 03/20/19 12:01 90 95 03/20/19 12:00 90 103/55 L 03/20/19 11:55 86 102/54 L 03/20/19 11:51 87 03/20/19 11:50 87 99/55 L 03/20/19 11:45 89 100/55 L 95 03/20/19 11:40 85 94/51 L 03/20/19 11:35 88 94/52 L 03/20/19 11:34 120/39 L 03/20/19 11:31 86 95 03/20/19 11:30 89 93/51 L 95 03/20/19 11:25 93 H 20 98/56 L 98 03/20/19 11:20 90 87/49 L 98 03/20/19 11:15 95 H 87/50 L 98 03/20/19 11:10 97 H 91/52 L 99 03/20/19 11:05 86 88/49 L 98 03/20/19 11:01 86 98 03/20/19 11:00 90 81/46 L 98 03/20/19 10:55 95 H 79/48 L 98 03/20/19 10:50 98 H 85/48 L 98 03/20/19 10:45 102 H 90/53 L 99 03/20/19 10:40 102 H 99/52 L 99 03/20/19 10:35 104 H 107/57 L 99 03/20/19 10:31 104 H 99 03/20/19 10:30 106 H 109/58 L 100 03/20/19 10:25 103 H 108/56 L 99 03/20/19 10:20 105 H 105/55 L 100 03/20/19 10:15 108 H 107/59 L 03/20/19 10:10 100/55 L 03/20/19 10:05 100/53 L 03/20/19 10:00 100/48 L 03/20/19 09:30 108 H 03/20/19 09:25 117 H 127/66 96 03/20/19 09:20 114 H 116/62 97 03/20/19 09:15 113 H 113/62 96 03/20/19 09:10 112 H 115/60 96 03/20/19 09:05 105 H 102/57 L 94 03/20/19 09:01 105 H 94 03/20/19 09:00 103 H 98/55 L 94 03/20/19 08:55 96 H 99/51 L 93 03/20/19 08:50 100 H 95/53 L 94 03/20/19 08:45 103 H 99/52 L 96 03/20/19 08:40 104 H 99/54 L 98 03/20/19 08:35 105 H 107/58 L 88 L 03/20/19 08:31 103 H 89 L 03/20/19 08:30 102 H 104/56 L 89 L 03/20/19 08:25 97 H 100/53 L 88 L 03/20/19 08:20 89 101/47 L 91 03/20/19 08:15 37.4 C 100 H 96/51 L 95 03/20/19 08:10 103 H 98/54 L 96 03/20/19 08:06 107 H 96/54 L 99 03/20/19 08:00 113 H 03/20/19 07:56 111 H 103/58 L 03/20/19 07:55 108 H 20 100 03/20/19 07:50 105 H 108/61 03/20/19 07:00 110 H 20 115/66 100 03/20/19 06:55 110 H 20 119/65 100 03/20/19 06:45 111 H 20 100 03/20/19 06:42 122 H 111/63 03/20/19 06:15 112 H 20 120/67 100 03/20/19 06:10 104 H 20 126/69 100 03/20/19 06:05 98 H 20 129/67 100 03/20/19 06:00 109 H 20 118/68 100 03/20/19 05:55 110 H 20 118/68 03/20/19 05:50 119 H 20 120/68 100 03/20/19 05:45 120 H 20 125/72 100
[2019-03-20] MEDS: ATORVASTATIN 40 MG TAB NG SCH (18:06)
[2019-03-20] MEDS ORDERED: NORMOSOL-R 500 ML IV ONE (18:36)
[2019-03-20] MEDS ORDERED: NOREPINEPHRINE BIT INJ 8 MG in DEXTROSE 5% 500 ML IV SCH (18:45)
[2019-03-20] MEDS ORDERED: NORMOSOL-R 1,000 ML IV ONE (19:03)
--- NOTE | 2019-03-20 19:08 | Procedure Note ---
Procedure Note Date of Service March 20, 2019 Procedure Note Procedure: Central Line Physician(s): Dr. Griffith assisted by PGY1 Dr. Lorenz Indication: Inadequate venous access, need for vasoactive infusions Anesthesia: 2% Lidocaine A time-out was completed, verifying correct patient, procedure, site, positioning, and implant(s) or special equipment if applicable. Patients left IJ area was prepped and draped in usual sterile fashion. 2% Lidocaine was used to anesthetize the area. The L IJ was accessed with ultrasound assisted tech nique. A Triple lumen central line was introduced over a wire via the Seldinger technique, then sutured in place. Good blood flow was noted from all ports. All ports flushed successfully with normal saline. The patient tolerated the procedure well. Chest x-ray was ordered to assess for pneumothorax and catheter placement. Complications: None Blood loss: Minimal Dr. Griffith was present/immediately available by telephone during the entire procedure. Procedure Date: March 20, 2019 Procedure: Procedural Ultrasound Indication: Central venous access Attending: Katie Griffith DO Resident/Physician Supervisor Stave Cutting: clair Artery visualized: Yes Vein visualized: Yes Compressible Vein: Yes Vein patent: Yes Guidewire or Short Catheter seen in vein prior to dilation: Yes Line confirmed in Vein with ultrasound: Yes Lung Sliding on side of attempt (if applicable): NA If no lung sliding or not obtained has CXR been ordered: Yes Impression: Successful central venous access placement Images obtained are saved for permanent record Coding Resident Activity Tracking Resident Involvement: Resident Care Provided Care Provided: Adult [facility]
--- NOTE | 2019-03-20 19:34 | XRay Report ---
XR chest 1V portable CLINICAL HISTORY: line placement, left IJ COMPARISON STUDY: 03/20/2019 FINDINGS: The heart is normal in size. There is an endotracheal tube positioned approximately 3 cm ab ove the raj. There is been interval placement of a left internal jugular central venous catheter. The tip projects over the superior vena cava at the azygos level. There is no pneumothorax. Bilateral pulmonary interstitial and airspace opacities remain similar.[ IMPRESSION: 1. Interval placement of a left internal jugular central venous catheter. No evidence of pneumothorax 2. Persistent bilateral interstitial and airspace opacities Electronically signed by: Frankie Vela M.D. 03/20/2019 7:33 PM
[2019-03-20 20:12] LABS: iSTAT Arterial Blood Gas HCO3 31 meg/L (19-24); iSTAT Arterial Blood Gas pCO2 40 mmHg (35-46); iSTAT Carbon Dioxide 32 mEq/l (24-31); iSTAT FiO2 40 %; iSTAT Site Art Line
[2019-03-20] MEDS: VASOPRESSIN 20 UNITS in 0.9 % SODIUM CHLORIDE 100 ML IV SCH (20:22)
[2019-03-20] MEDS: PIPERACILLIN/TAZOBACTAM 3.375 GM in DEXTROSE 5% 100 ML IV SCH (20:56)
[2019-03-20] MEDS: MIDAZOLAM HCL 1 MG/ML 2ML VIAL IV PRN (21:22)
[2019-03-21 00:10] LABS: iSTAT Arterial Blood Gas HCO3 32 meg/L (19-24); iSTAT Arterial Blood Gas pCO2 44 mmHg (35-46); iSTAT Arterial Blood Gas pH 7.48 (7.35-7.45); iSTAT Carbon Dioxide 34 mEq/l (24-31); iSTAT FiO2 40 %; iSTAT Site Art Line
[2019-03-21] MEDS: INSULIN ASPART 100 UNITS/ML 3 ML PEN SC SCH ×6 (00:22→20:25)
[2019-03-21] MEDS: fentaNYL citrate 100 MCG/2 ML VIAL IV PRN ×3 (01:07→08:39)
[2019-03-21] MEDS: MIDAZOLAM HCL 1 MG/ML 2ML VIAL IV PRN ×3 (01:41→10:19)
[2019-03-21] MEDS: LEVALBUTEROL HCL 0.63 MG/3 ML NEB NEB SCH ×4 (02:00→19:09)
[2019-03-21 03:57] LABS: iSTAT Arterial Blood Gas HCO3 35 meg/L (19-24); iSTAT Arterial Blood Gas pCO2 49 mmHg (35-46); iSTAT Arterial Blood Gas pH 7.46 (7.35-7.45); iSTAT Carbon Dioxide 37 mEq/l (24-31); iSTAT FiO2 40 %; iSTAT Site Art Line
[2019-03-21] MEDS: PIPERACILLIN/TAZOBACTAM 3.375 GM in DEXTROSE 5% 100 ML IV SCH ×3 (04:18→20:22)
[2019-03-21 05:00] LABS: Hematocrit (blood only) 24.2 % (42-52); Hemoglobin 7.7 g/dL (14.0-18.0); Mean Corpuscular Hgb Conc 31.8 g/dL (32-36); Mean Corpuscular Volume 83.4 fL (80-100); Platelet Count 370 K/uL (130-400); RDW Coefficient of Variation 20.6 % (11.5-14.5); RDW Standard Deviation 61.9 fL (36.4-46.3); White Blood Count 16.89 K/uL (4.8-10.8)
[2019-03-21 05:01] LABS: Anisocytosis Present; Basophils # (auto) 0.01 K/uL (0-0.2); Basophils % (auto) 0.1 %; Immature Granulocytes # (auto) 0.07 K/uL (0.00-0.02); Immature Granulocytes % (auto) 0.4 %; Lymphocytes # (auto) 1.84 K/uL (1.2-3.4); Lymphocytes % (auto) 10.9 %; Monocytes # (auto) 0.76 K/uL (0.11-0.59); Monocytes % (auto) 4.5 %; Neutrophils # (auto) 14.21 K/uL (1.4-6.5); Neutrophils % (auto) 84.1 %; Ovalocytes 1+; Polychromasia 1+
[2019-03-21 05:06] LABS: BUN Creatinine Ratio 85.7 (10-20); Calcium 8.1 mg/dl (8.5-10.1); Creatinine Clr Calc Pharmacy 85.5 ml/min; Est GFR (African American) 124.3; Est GFR (Non-African American) 107.3; Potassium 3.5 mmol/L (3.5-5.1)
[2019-03-21] MEDS: HEPARIN SOD 5,000 UNIT/0.5 ML VIAL SQ SCH ×3 (06:08→23:44)
[2019-03-21] MEDS: VALPROIC ACID SOLN 250 MG/5 ML UDC PO SCH ×2 (08:16→20:24)
[2019-03-21] MEDS: risperiDONE 2 MG TABLET PO SCH ×2 (08:16→20:24)
[2019-03-21] MEDS: predniSONE 10 MG TABLET PO SCH (08:16)
[2019-03-21] MEDS: BENZTROPINE MESYLATE 0.5 MG TAB PO SCH ×2 (08:16→20:23)
[2019-03-21] MEDS: FAMOTIDINE 20 MG TAB PO SCH ×2 (08:16→20:24)
[2019-03-21] MEDS: ATORVASTATIN 40 MG TAB NG SCH (08:16)
[2019-03-21] MEDS: NICOTINE 7 MG/24 HR TDSY TD SCH (08:17)
[2019-03-21] MEDS: ACETAMINOPHEN SOLN 325 MG/10.15 ML UDC PO PRN ×3 (08:33→17:55)
[2019-03-21 08:34] LABS: iSTAT Arterial Blood Gas HCO3 31 meg/L (19-24); iSTAT Arterial Blood Gas pCO2 40 mmHg (35-46); iSTAT Arterial Blood Gas pH 7.51 (7.35-7.45); iSTAT Carbon Dioxide 32 mEq/l (24-31); iSTAT FiO2 40 %; iSTAT Site Art Line
[2019-03-21] MEDS: MAGNESIUM OXIDE 400 MG TAB PO SCH (08:34)
[2019-03-21] MEDS ORDERED: ASPIRIN 81 MG CHEW NG SCH (09:00)
--- NOTE | 2019-03-21 09:46 | Pharmacy Report ---
Pharmacy Glycemic Short Note 2 - Date of Service March 21, 2019 - Glycemic Short BSG Results (Last 24 hours): 03/20/19 03/20/19 03/20/19 11:52 16:16 20:47 Glucose POC Glucose 114 H 145 H POC Glucose (other) 101 H 03/20/19 03/21/19 03/21/19 23:52 04:19 08:09 Glucose 137 H POC Glucose 142 H POC Glucose (other) 136 H OUTPATIENT ANTIDIABETIC REGIMEN: * N/A (no prior dx of DM) * A1c = 6.0% 03/11/19 (consistent w/ "pre-diabetes") ASSESSMENT: 03/21 * Patient transferred back to ICU following aspiration event. Patient also had brief cardiac arrest on morning of the . Patient intubated on levophed/vasopressin. Tube feeds currently running at 35 cc/hr. * Prednisone continues to taper and will decrease to 15 mg tomorrow. * Patient's BSGs continue to be well controlled ranging from 101-145 over the last 24 hours. Will continue current novolog regimen. 03/18 * 3 units of insulin in previous 24 hours for tube feed coverage * BSGs within gaol range 100-145 * Continues on prednisone 40 mg daily- taper entered; dose decreased on the * Tube feeds discontinued and patient can now have po diet * Will continue novolog coverage for now- may be able to discontinue if BSGs continue to be controlled 03/16 * 11 units given over last 24 hours * BSGs at goal, currently novolog ordered without basal insulin * Will continue current regimen for now * Pt extubated this AM, with transition to prednisone taper 03/15 * 18 units given over last 24 hrs * BSGs again at goal * BSGs are trending a little lower over last 12 hrs * Will dc Lantus order at this time and rely on Novolog in alone for next 24 hrs * Pt remains intubated this AM and looks as though they may not be extubated today. Tube feeds continue at goal. Solu-medrol continues at same dose. 03/14 * 26 units given in last 24 hrs * All BSGs have been at goal * Patient remains intubated, sedated, with Solu-Medrol at same dosage. * There may be plans to attempt extubation today * One BSG did drop to 104 this AM, tube feeds were not being held prior to this. This does not fit the overall pattern of prior BSGs with current stressors, however decrease in BSG may be related to HS dose of Lantus 6 units. Will decrease Lantus dose by ~ 50% as a result and continue Novolog unchanged 03/13 * Received 31 units of insulin over last 24 hrs * Most BSGs at goal over the last 24 hours. BSGs did peak at 189-196 last evening. I believe this was likely related to upwards titration of tube feeds and possibly due to delayed effects of IV Solu-medrol administration. * Impact now at goal rate of 65cc/hr. Pt remains intubated, sedated. Solu- medrol 40mg IV Q 24 hrs continues. * Will only make minor changes to today's insulin regimen : small increase in Novolog CF and CR doses 03/12 * Patient remains intubated, sedated. * Steroids continue at Solu-Medrol 40mg IV Q 24 hrs * Tube feeds (Impact 1.0) continue to be titrated upwards * BSGs well controlled over last 24 hrs. No further episodes of hypoglycemia noted. * Will titrate basal insulin dose downwards again today as BSGs have not climbed quickly with the addition of continuous tube feeds yesterday PLAN FOR INPATIENT GLYCEMIC CONTROL: * Basal insulin (decrease in dose) * DC Lantus at this time * Bolus insulin (small decrease in dose) * NovoLog per scale Q 4 hrs * Goal Range: Low 120 mg/dL - High 150 mg/dL * Correction Factor: 30 mg/dL/unit * Nutritional / Prandial insulin per carb ratio of 1 unit per 15 grams CHO administered in tube feeds * Reassess insulin needs with each step-down in steroid dose PLAN FOR DISCHARGE: * given his A1c, he will not likely require insulin on discharge if acute stressors resolve and steroids are stopped
--- NOTE | 2019-03-21 09:46 | Critical Care Progress Note ---
Date of Service March 21, 2019 Assessment & Plan (1) Cardiac arrest: Mr. Bailey is a 73-year-old male with a past medical history of esophageal cancer, pneumonia, tobacco abuse, COPD, schizophrenia, history of GI bleed, hiatal hernia and noncompliance with INTEGRATION PROJECT MANAGER diet texture recommendations who presents to the hospital 03/08 2019 with fever and shortness of breath was found to be febrile with lactic acidosis and acute hypoxic respiratory failure was transferred to the ICU for ARDS. He was clinically stable and downgraded to floor status on 03/18/2019. He has been retransferred to the ICU after an aspiration event after eating ice cream and applesauce. He sustained a 5 minute cardiac arrest on 03/20 with ROSC. Neuro CAM ICU: Analgesia: APAP 650 mg p.o. every 4 hours as needed, fentanyl 50-100 mcg IV every 2 hours as needed as needed scale pain control Sedation: Sedation with fentanyl 50 mcg - 100 mcg every 2 hours as needed, Vidaza Pitt 2 mg every 2 hours as needed History of schizophrenia Continue risperidone 2 mg p.o. twice daily Continue valproic acid 250 mg p.o. twice daily - Valproic acid level 22, last 33 on 03/16. Subtherapeutic, s/p +1g load and recheck in 48 hours. May benefit from increase from 250mg BID to 250mg qAM, 500mg qHS in the future. Mental status, assessment of medical competency Mr. Bailey has continued to refuse feeding tube placement, but remains noncompliant with n.p.o. recommendations and speech recommendations. He would require a feeding tube if he were to undergo esophagectomy for his esophageal cancer. He does not show insight or understanding into the requirement of a feeding tube for cancer, and is unable to apply this to his condition. He is also unable to apply the increased risk of recurrent aspiration with pneumonitis and pneumonia to his current medical condition, and is unable to teach back or explain consequences of his decisions. He does not express an understanding of the risks of repeat intubation, airway trauma, and need for possible tracheostomy. He does not apply or show insight for these medical conditions to his condition. Cardiac Sinus tachycardia with hypertension Metoprolol held Became hypotensive following administration of BB for tachycardia with concern for type II OH yesterday On norepinephrine and vasopressin overnight, currently weaned and not on vasoactive drugs this morning with adequate pressures - BB held pending improvement in heart rate Respiratory Acute hypoxic respiratory failure, recently recovered from ARDS 2/2 aspiration pneumonia Had been treated with empiric vancomycin, Zosyn, doxycycline on admission and completed 7 days of Zosyn from . He required intubation while he was in the ICU, was extubated, and weaned from BiPAP to oxygen mask. While on the hospital floor he tried to eat ice cream and applesauce, was found with gurgling upper respiratory noises by nursing staff and airway suction via nasal access returned soto food product. CXR showed Progressively worsened diffuse mixed interstitial and alveolar opacities. Corseafe was placed and he was transferred back to the ICU for further care. He will receive nutrition via his core safe, it is not safe for him to continue oral feeding. He shows poor judgment and poor insight regarding his feeding, lung condition, and aspiration. -Experienced a CODE BLUE likely secondary to hypercarbic respiratory failure while in the ICU. He has been intermittently febrile, receiving APAP Zosyn restarted, day #2, recommend at least 10 day course of abx GI - Esophageal cancer with multiple INTEGRATION PROJECT MANAGER evaluations in the past. High aspiration risk with recurrent past aspiration events. Nutrition: Coresafe placed tube feeding. Estimated daily caloric need of [id number] kcals per day. Concerns given patient noncompliance, but could benefit from PEG tube -Exclusive NG feeds. Strict n.p.o. See neuro section for notes about patient insight into his illness and risk of aspiration RENAL/LYTES - Sodium 151, 3.5, Cr .52 Replace electrolytes per protocol KIERA - Eisenberg in place, minimal UOP ENDO - Sliding scale aspart. Glucose checks per ICU protocol History of high-dose steroid use Was previously on methylprednisolone 40 mg every 8 hours , decreased to 40 mg daily on 03/10, 20 mg daily on 03/15 Prednisone taper as follows - Started 03/17/19 - 03/17-03/21 20 mg x 5 days - 03/22-03/25 15 mg x 4 days - 03/26-03/29 10mg x4 days - 03/30- 5mg x4 days HEME - - Chronic normocytic normochromic anemia. Hemoglobin stable at 9.8 likely 2/2 chronic disease Chronic pulmonary emboli without central emboli or acute PE Seen on CTA-Chest. Venous duplex LE-Bi shows no DVT. No evidence of acute proc ess. Continue DVT prophylaxsis dose. Not a good candidate for SVC filter. ID - Aspiration pneumonia treated with 7 days of Zosyn as above. Blood cultures 03/08 with no growth x2 Afebrile -Aspiration event, febrile intermittently today. Zosyn restarted as above. INTEGUMENTARY - No new, active lesions at this time. Routine ulcer prophylaxis LINES/IV ACCESS - PIVs intact. L A-line in place DVT PROPHYLAXIS - Heparin 5000 units 3 times daily Thank you for allowing us to be part of this patient's care. Please refer to Dr. Griffith's documentation for any further recommendations. Supervising Physician Co-Signing Physician Notes Neuro - Acute encephalopathy Sedation: Versed and fentanyl pushes -Patient does not have a surrogate decision-maker, Ethics team -Patient has been refusing feeding tube placement -Patient continues to be noncompliant with n.p.o. recommendations -If patient were to undergo esophagectomy for his esophageal cancer as proposed he would require feeding tube placement: Does not comprehend insight into requirement of feeding tube -Patient does not appear to understand the risk of recurrent aspiration pneumonitis and aspiration pneumonia: Unable to teach back or explain consequences of decisions -Patient does not appear to understand risk of repeated intubation, airway trauma, need for possible tracheostomy: Unable to teach back or explain consequences of decision Sedation/analgesia APAP 650 mg p.o. every 4 hours as needed Continue risperidone 2 mg p.o. twice daily Continue valproic acid 250 mg p.o. twice daily -Repeat Depakote level low, will give 1 g load follow-up Depakote level in 72 hours Cardiac - Cardiac arrest -trop tomorrow, -Discussed with Dr. Rivero, no role for heparin given GI cancer history and history of gastrointestinal hemorrhage -Patient given 1 dose beta-shellie and was hypotensive requiring vasoactive medication canceled beta-shellie until heart improves -Ischemia versus stress-induced cardiomyopathy I believe it is more stress-induced cardiomyopathy at this time Respiratory - Acute hypoxic respiratory failure ARDS survivor Recurrent aspiration - NT suctioning: dark apple sauce texture removed: 03/19 - Patient recurrently aspiration Completed 7 days of Zosyn () -Starting Zosyn day 2, will consider extended course given recurrent aspirations -Bronchoscopy results: Gram-negative bacilli: Anticipate to de- escalate tomorrow after speciation GI - Esophageal cancer with multiple INTEGRATION PROJECT MANAGER evaluations in the past. 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 Concerns given patient noncompliance, but could benefit from PEG tube ENDO - Adequate glycemic control on ICU protocol, serum glucose [id number] last 24 hours. Continue sliding scale aspart. Prednisone taper as follows: 20 mg x 5 of 5 days, followed by 15 mg x 4 days, followed by 10 mg x 4 days, followed by 5 mg x 4 days. HEME - Chronic normocytic normochromic anemia. 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 ID - Aspiration pneumonia treated with 7 days of Zosyn as above. - Day 2 Zosyn zosyn LINES/IV ACCESS - PIVs intact. Left radial arterial line DVT PROPHYLAXIS - Heparin 5000 units 3 times daily Patient critically ill due to aspiration pneumonitis and acute hypoxic respiratory failure I met the patient's behavioral health case manager Rosa supervisor volunteer services: [phone] (Zonia) Our case management and patient's behavioral health case manager attempting to locate a person who could act as his surrogate medical decision maker -Ethics consult pending I have personally spent 35 minutes of critical care time in the direct management of this patient. This is a life/limb threatening event. This inclu rex time spent evaluating patient, direct bedside care, chart review, placing orders, interpretation of diagnostic studies, discussion with consultants, patient, and/or family members regarding treatment decisions, as well as other required patient management activities. This time is exclusive of all separately billable procedures, and teaching time and separate from and in addition to any other critical care service time. Subjective Mr. Bailey was seen at bedside today. He withdraws weakly to painful stimuli. Unable to give further history. Per nursing report he did well overnight and has had his Levophed weaned and stopped with adequate blood pressure this morning. Review of Systems Review of Systems: Unobtainable due to endotracheal tube Physical Exam Physical Exam: General: ETT in place, withdraws weakly to painful stimuli. HEENT: Atraumatic, normocephalic. NG coresafe present Pulm: Reduced air movement, coarse upper airway sounds, mild wheezes globally. ETT in place Cardiac: RRR, -mrg. Radial pulses intact and symmetrical. Abdominal: Soft, nondistended Results & Data Vital Signs (Past 12 Hours) Vital Signs Temp Pulse Resp BP Pulse Ox 03/21/19 06:01 99 H 94 03/21/19 06:00 96 H 107/56 L 94 03/21/19 05:31 109 H 93 03/21/19 05:30 113 H 117/62 93 03/21/19 05:00 119 H 25 H 151/77 H 95 03/21/19 04:30 111 H 112/55 L 91 03/21/19 04:01 37.8 C H 113 H 90 03/21/19 04:00 110 H 130/71 90 03/21/19 03:30 126 H 147/77 H 98 03/21/19 03:01 78 85 L 03/21/19 03:00 74 146/73 H 87 L 03/21/19 02:30 108 H 124/62 92 03/21/19 02:01 113 H 98 03/21/19 02:00 113 H 19 126/69 98 03/21/19 01:30 111 H 142/78 H 95 03/21/19 01:01 85 95 03/21/19 01:00 94 H 118/60 96 03/21/19 00:31 87 95 03/21/19 00:30 88 105/55 L 94 03/21/19 00:20 95 H 114/60 95 03/21/19 00:15 88 114/56 L 94 03/21/19 00:10 91 H 117/59 L 95 03/21/19 00:05 101 H 122/67 97 03/21/19 00:01 36.7 C 99 H 96 03/21/19 00:00 108 H 113/62 96 03/20/19 23:55 92 H 107/55 L 95 03/20/19 23:50 91 H 100/54 L 95 03/20/19 23:45 95 H 103/55 L 95 03/20/19 23:40 91 H 106/56 L 95 03/20/19 23:35 92 H 102/54 L 94 03/20/19 23:31 92 H 95 03/20/19 23:30 94 H 108/58 L 95 03/20/19 23:25 98 H 107/58 L 95 03/20/19 23:20 100 H 19 112/61 97 03/20/19 23:15 95 H 106/57 L 94 03/20/19 23:10 101 H 106/56 L 95 03/20/19 23:05 100 H 101/52 L 94 03/20/19 23:01 96 H 94 03/20/19 23:00 98 H 99/50 L 94 03/20/19 22:55 113 H 103/53 L 96 03/20/19 22:50 100 H 102/51 L 95 03/20/19 22:45 101 H 100/50 L 94 03/20/19 22:40 112 H 100/53 L 95 03/20/19 22:35 96 H 106/56 L 94 03/20/19 22:31 93 H 93 03/20/19 22:30 91 H 104/53 L 93 03/20/19 22:25 93 H 101/55 L 93 03/20/19 22:20 98 H 102/54 L 93 03/20/19 22:15 96 H 104/56 L 93 03/20/19 22:10 101 H 106/57 L 93 03/20/19 22:05 102 H 106/57 L 95 03/20/19 22:01 104 H 95 03/20/19 22:00 103 H 103/54 L 95 03/20/19 21:55 104 H 102/56 L 94 03/20/19 21:50 107 H 107/57 L 93 03/20/19 21:45 108 H 108/58 L 92 03/20/19 21:40 108 H 114/60 91 03/20/19 21:35 110 H 114/59 L 92 03/20/19 21:31 115 H 92 03/20/19 21:30 114 H 108/58 L 92 03/20/19 21:25 119 H 120/60 92 03/20/19 21:20 123 H 132/72 93 03/20/19 21:15 132 H 135/74 95 03/20/19 21:10 118 H 134/73 94 03/20/19 21:05 113 H 134/67 95 03/20/19 21:01 115 H 96 03/20/19 21:00 36.8 C 117 H 128/82 96 03/20/19 20:30 18 03/20/19 20:04 90 20 95 Resident Activity Tracking Resident Involvement: Resident Care Provided Care Provided: Adult Hospital Medicine
[2019-03-21] MEDS: MIDAZOLAM HCL 125 MG/250 ML BAG IV SCH ×2 (11:32→13:11)
--- NOTE | 2019-03-21 11:41 | Oncology Consultation ---
Date of Consultation March 21, 2019 History of Present Illness Attending Physician: Tyrel López MD Allergies Allergy/AdvReac Type Severity Reaction Status Date / Time buspirone Allergy Unknown Verified 03/08/19 08:32 clonazepam Allergy Unknown unknown Verified 03/08/19 08:32 clozapine Allergy Unknown Verified 03/08/19 08:32 Home Medications Home Medications Medication Instructions Recorded Confirmed Type Dairy Relief 9,000 unit PO QID 09/09/18 03/08/19 History acetaminophen [Acetaminophen Extra 1,000 mg PO Q8H PRN 09/09/18 03/08/19 History Strength] albuterol sulfate [Ventolin HFA] 2 puff INHALATION QID PRN 09/09/18 03/08/19 History calcium carbonate [Calcium Antacid] 200 - 400 mg PO DAILY 09/09/18 03/08/19 History guaifenesin [Mucinex] 600 mg PO BID PRN 09/09/18 03/08/19 History metoprolol succinate 25 mg PO QAM 09/09/18 03/08/19 History omeprazole 40 mg PO QAM 09/09/18 03/08/19 History quetiapine 400 mg PO QPM 09/09/18 03/08/19 History ranitidine HCl 150 mg PO BID 09/09/18 03/08/19 History trazodone 100 mg PO HS 09/09/18 03/08/19 History Preparation H 1 applic FL TID PRN 10/16/18 03/08/19 History ipratropium bromide 0.5 mg NEB Q6R PRN #75 ml 10/19/18 03/08/19 Rx potassium chloride 10 meq PO BID 10/28/18 03/08/19 History Reguloid 1 tsp PO DAILY PRN 01/06/19 03/08/19 History alum-mag hydroxide-simeth [Rulox] 10 ml PO Q4H PRN 01/06/19 03/08/19 History diphenhydramine HCl [Banophen] 25 mg PO HS PRN 01/06/19 03/08/19 History polyethylene glycol 3350 [Miralax] 17 gm PO DAILY PRN 01/22/19 03/08/19 History benztropine 0.5 mg PO BID 02/11/19 03/08/19 History divalproex 250 mg PO BID 02/11/19 03/08/19 History risperidone 2 mg PO BID 02/11/19 03/08/19 History Patient History Medical History Difficult intubation Esophageal cancer (Acute) History of esophageal cancer (Chronic) 11/20/18 EGD: Nodular ulcerated lesion. EUS: Mass lower third esophagus. Biopsies positive for adenocarcinoma. Paranoid schizophrenia (Chronic) COPD (chronic obstructive pulmonary disease) (Chronic) HTN (hypertension) (Chronic) GERD (gastroesophageal reflux disease) (Chronic) Tobacco abuse (Chronic) Kevin esophagus (Chronic) GI bleed Sepsis Surgical History History of esophagogastroduodenoscopy (EGD) (Chronic) History of skin graft (Chronic) as child History of bowel resection (Chronic) "for diverticulitis " in 2009 Family History Mother Stroke Thyroid disorder Father Heart attack Other Heart disease Social History Preferred Language: Romanian Communication Ability: Effective Visual Impairment: No Limitations 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 Beliefs That Will Affect Care: Gnosticist Gnosticist Beliefs: Worship Current Living Situation: Personal Care Facility Current Living Situation Comment: lives at [facility] Other Information That Helps Us Care for You: No Feels Safe at Home: Yes Safety Concerns: Feels Safe At This Time Smoking Status: Current every day smoker Tobacco Type: cigarettes Cigarettes Per Day: 20 Do You Dip or Chew Tobacco: No Smoking End Date: Nov 2018 Second Hand Exposure: No Tobacco Cessation Education Requested by Patient: No Hx Alcohol Use: No Hx Substance Use: No Review of Systems Constitutional: + sweats and + malaise Results & Data Vital Signs (Past 12 Hours) Vital Signs Temp Pulse Resp BP Pulse Ox 03/21/19 10:46 120 H 21 93 03/21/19 10:01 37.8 C H 128 H 97 03/21/19 10:00 129 H 139/75 96 03/21/19 09:30 125 H 111/53 L 97 03/21/19 09:01 119 H 95 03/21/19 09:00 120 H 117/53 L 94 03/21/19 08:31 130 H 93 03/21/19 08:30 37.8 C H 128 H 158/98 H 92 03/21/19 08:00 128 H 162/88 H 91 03/21/19 07:46 123 H 27 H 95 03/21/19 07:31 95 H 96 03/21/19 07:30 100 H 112/60 96 03/21/19 07:01 104 H 96 03/21/19 07:00 105 H 114/63 96 03/21/19 06:45 106 H 96 03/21/19 06:01 99 H 94 03/21/19 06:00 96 H 107/56 L 94 03/21/19 05:31 109 H 93 03/21/19 05:30 113 H 117/62 93 03/21/19 05:00 119 H 25 H 151/77 H 95 03/21/19 04:30 111 H 112/55 L 91 03/21/19 04:01 37.8 C H 113 H 90 03/21/19 04:00 110 H 130/71 90 03/21/19 03:30 126 H 147/77 H 98 03/21/19 03:01 78 85 L 03/21/19 03:00 74 146/73 H 87 L 03/21/19 02:30 108 H 124/62 92 03/21/19 02:01 113 H 98 03/21/19 02:00 113 H 19 126/69 98 03/21/19 01:30 111 H 142/78 H 95 03/21/19 01:01 85 95 03/21/19 01:00 94 H 118/60 96 03/21/19 00:31 87 95 03/21/19 00:30 88 105/55 L 94 03/21/19 00:20 95 H 114/60 95 03/21/19 00:15 88 114/56 L 94 03/21/19 00:10 91 H 117/59 L 95 03/21/19 00:05 101 H 122/67 97 03/21/19 00:01 36.7 C 99 H 96 03/21/19 00:00 108 H 113/62 96 03/20/19 23:55 92 H 107/55 L 95 03/20/19 23:50 91 H 100/54 L 95 03/20/19 23:45 95 H 103/55 L 95 03/20/19 23:40 91 H 106/56 L 95
[2019-03-21] MEDS ORDERED: SODIUM CHLORIDE 0.9% 250 ML IV PRN (13:09)
--- NOTE | 2019-03-21 13:16 | Cardiology Progress Note ---
Date of Service March 21, 2019 Assessment & Plan (1) Left ventricular systolic dysfunction: Ischemic versus stress-induced. Patient cannot tolerate beta-shellie therapy due to hypotension. Treatment options are limited. He does not appear overtly volume overloaded. Would not add diuretic therapy currently. Consider increasing free water flushes due to hypernatremia. Overall prognosis is poor. (2) Elevated troponin: Likely stress-induced, type II in setting of recent cardiac arrest and hypoxia. I would not add anticoagulation due to declining hemoglobin and history of GI bleeding in the setting of known esophageal cancer. (3) Cardiac arrest: (4) Tachycardia: (5) Hypernatremia: Consider increasing free water flushes. (6) Aspiration into airway: (7) On mechanically assisted ventilation: Management as per critical care. Subjective Patient seen and examined at the bedside. Sedated on ventilator. Obtain history. Blood pressure elevated during periods of agitation per discussion with nursing staff. Patient received 1 dose of Lopressor which induced hypotension. No further doses given. Blood pressure supported with levophed overnight. Currently hypertensive. No signs or symptoms of GI/ blood loss. Sinus tachycardia on telemetry. No dysrhythmias. Troponin trending downward. Review of Systems Review of Systems: Unobtainable due to endotracheal tube Physical Exam Physical Exam: General: NAD, sedated, chronically ill, cachectic. HEENT: Normocephalic. Atraumatic. Conjunctiva pink, no scleral icterus. Neck: No carot id bruits, the carotid upstrokes are brisk. No JVD. No HJR Heart: Regular, tachycardic normal S-1 and S-2 no S-3 or S-4 gallop. No murmurs or rub appreciated. PMI is not displaced. No RV heave. Lungs: Coarse breath sounds bilateral, no rhonchi or wheeze. Abdomen: Normal bowel sounds. Soft. Nontender. No masses or organomegaly. No abdominal bruits. Extremities: No clubbing, cyanosis, or edema. Pulses: radial=2/4, posterior tibial=2/4. Neuro: Sedated, on ventilator. Results & Data Vital Signs (Past 12 Hours) Vital Signs Temp Pulse Resp BP Pulse Ox 03/21/19 12:31 121 H 97 03/21/19 12:30 121 H 131/64 97 03/21/19 12:01 115 H 98 03/21/19 12:00 107 H 105/49 L 98 03/21/19 11:31 113 H 97 03/21/19 11:30 112 H 101/51 L 97 03/21/19 11:01 109 H 96 03/21/19 11:00 112 H 106/51 L 96 03/21/19 10:46 120 H 21 93 03/21/19 10:31 119 H 93 03/21/19 10:30 120 H 112/58 L 93 03/21/19 10:01 37.8 C H 128 H 97 03/21/19 10:00 129 H 139/75 96 03/21/19 09:30 125 H 111/53 L 97 03/21/19 09:01 119 H 95 03/21/19 09:00 120 H 117/53 L 94 03/21/19 08:31 130 H 93 03/21/19 08:30 37.8 C H 128 H 158/98 H 92 03/21/19 08:00 128 H 162/88 H 91 03/21/19 07:46 123 H 27 H 95 03/21/19 07:31 95 H 96 03/21/19 07:30 100 H 112/60 96 03/21/19 07:01 104 H 96 03/21/19 07:00 105 H 114/63 96 03/21/19 06:45 106 H 96 03/21/19 06:01 99 H 94 03/21/19 06:00 96 H 107/56 L 94 03/21/19 05:31 109 H 93 03/21/19 05:30 113 H 117/62 93 03/21/19 05:00 119 H 25 H 151/77 H 95 03/21/19 04:30 111 H 112/55 L 91 03/21/19 04:01 37.8 C H 113 H 90 03/21/19 04:00 110 H 130/71 90 03/21/19 03:30 126 H 147/77 H 98 03/21/19 03:01 78 85 L 03/21/19 03:00 74 146/73 H 87 L 03/21/19 02:30 108 H 124/62 92 03/21/19 02:01 113 H 98 03/21/19 02:00 113 H 19 126/69 98 03/21/19 01:30 111 H 142/78 H 95 Laboratory Results Laboratory Results - last 24 hr 03/20/19 03/20/19 03/20/19 12:32 16:16 16:51 WBC RBC Hgb Hct MCV MCH MCHC RDW Std Deviation RDW Coeff of Migel Plt Count MPV Immature Gran % (Auto) Neut % (Auto) Lymph % (Auto) Iron % (Auto) Eos % (Auto) Baso % (Auto) Immature Gran # (Auto) Neut # (Auto) Lymph # (Auto) Iron # (Auto) Eos # (Auto) Baso # (Auto) Polychromasia Anisocytosis Ovalocytes PT 11.8 INR 1.2 H APTT 27.6 PTT Ratio 1.0 Sample Site POC pH POC pCO2 POC pO2 POC HCO3 POC Total CO2 POC Base Excess POC ABG O2 Sat Ra Test O2 Delivery Device POC O2 Rate Minute Ventilation POC FiO2 Tidal Volume PEEP Sodium Potassium Chloride Carbon Dioxide Anion Gap BUN Creatinine Est Cr Clr Drug Dosing Est GFR ( Amer) Est GFR (Non-Af Amer) BUN/Creatinine Ratio Glucose POC Glucose 145 H POC Glucose (other) Calcium Ionized Calcium Troponin I 0.420 H* Valproic Acid 03/20/19 03/20/19 03/20/19 17:20 18:31 19:00 WBC RBC Hgb Hct MCV MCH MCHC RDW Std Deviation RDW Coeff of Migel Plt Count MPV Immature Gran % (Auto) Neut % (Auto) Lymph % (Auto) Iron % (Auto) Eos % (Auto) Baso % (Auto) Immature Gran # (Auto) Neut # (Auto) Lymph # (Auto) Iron # (Auto) Eos # (Auto) Baso # (Auto) Polychromasia Anisocytosis Ovalocytes PT INR APTT PTT Ratio Sample Site Art Line POC pH 7.50 H POC pCO2 42 POC pO2 90 POC HCO3 32 H POC Total CO2 34 H POC Base Excess 9.0 H POC ABG O2 Sat 97.0 H Ra Test NA O2 Delivery Device Ventilator POC O2 Rate 20 Minute Ventilation 10.6 POC FiO2 40 Tidal Volume 530 PEEP 5 Sodium Potassium Chloride Carbon Dioxide Anion Gap BUN Creatinine Est Cr Clr Drug Dosing Est GFR ( Amer) Est GFR (Non-Af Amer) BUN/Creatinine Ratio Glucose POC Glucose POC Glucose (other) Calcium Ionized Calcium 1.14 Troponin I 0.834 H* Valproic Acid 05/08/2903/20/19 03/20/19 19:59 20:47 23:45 WBC RBC Hgb Hct MCV MCH MCHC RDW Std Deviation RDW Coeff of Migel Plt Count MPV Immature Gran % (Auto) Neut % (Auto) Lymph % (Auto) Iron % (Auto) Eos % (Auto) Baso % (Auto) Immature Gran # (Auto) Neut # (Auto) Lymph # (Auto) Iron # (Auto) Eos # (Auto) Baso # (Auto) Polychromasia Anisocytosis Ovalocytes PT INR APTT PTT Ratio Sample Site Art Line POC pH 7.50 H POC pCO2 40 POC pO2 80 POC HCO3 31 H POC Total CO2 32 H POC Base Excess 8.0 H POC ABG O2 Sat 96.0 H Ra Test NA O2 Delivery Device Ventilator POC O2 Rate 20 Minute Ventilation 10.7 POC FiO2 40 Tidal Volume 530 PEEP 5 Sodium Potassium Chloride Carbon Dioxide Anion Gap BUN Creatinine Est Cr Clr Drug Dosing Est GFR ( Amer) Est GFR (Non-Af Amer) BUN/Creatinine Ratio Glucose POC Glucose POC Glucose (other) 101 H Calcium Ionized Calcium 1.12 Troponin I Valproic Acid 03/20/19 03/20/19 03/20/19 23:50 23:52 23:56 WBC RBC Hgb Hct MCV MCH MCHC RDW Std Deviation RDW Coeff of Migel Plt Count MPV Immature Gran % (Auto) Neut % (Auto) Lymph % (Auto) Iron % (Auto) Eos % (Auto) Baso % (Auto) Immature Gran # (Auto) Neut # (Auto) Lymph # (Auto) Iron # (Auto) Eos # (Auto) Baso # (Auto) Polychromasia Anisocytosis Ovalocytes PT INR APTT PTT Ratio Sample Site Art Line POC pH 7.48 H POC pCO2 44 POC pO2 88 POC HCO3 32 H POC Total CO2 34 H POC Base Excess 9.0 H POC ABG O2 Sat 97.0 H Ra Test NA O2 Delivery Device Ventilator POC O2 Rate 18 Minute Ventilation 9.8 POC FiO2 40 Tidal Volume 500 PEEP 5 Sodium Potassium Chloride Carbon Dioxide Anion Gap BUN Creatinine Est Cr Clr Drug Dosing Est GFR ( Amer) Est GFR (Non-Af Amer) BUN/Creatinine Ratio Glucose POC Glucose POC Glucose (other) 136 H Calcium Ionized Calcium Troponin I 0.976 H* Valproic Acid 03/21/19 03/21/19 03/21/19 02:52 03:44 04:19 WBC RBC Hgb Hct MCV MCH MCHC RDW Std Deviation RDW Coeff of Migel Plt Count MPV Immature Gran % (Auto) Neut % (Auto) Lymph % (Auto) Iron % (Auto) Eos % (Auto) Baso % (Auto) Immature Gran # (Auto) Neut # (Auto) Lymph # (Auto) Iron # (Auto) Eos # (Auto) Baso # (Auto) Polychromasia Anisocytosis Ovalocytes PT INR APTT PTT Ratio Sample Site Art Line POC pH 7.46 H POC pCO2 49 H POC pO2 134 H POC HCO3 35 H POC Total CO2 37 H POC Base Excess 11.0 H POC ABG O2 Sat 99.0 H Ra Test NA O2 Delivery Device Ventilator POC O2 Rate 18 Minute Ventilation 10.0 POC FiO2 40 Tidal Volume 530 PEEP 5 Sodium Potassium Chloride Carbon Dioxide Anion Gap BUN Creatinine Est Cr Clr Drug Dosing Est GFR ( Amer) Est GFR (Non-Af Amer) BUN/Creatinine Ratio Glucose POC Glucose POC Glucose (other) Calcium Ionized Calcium 1.11 L Troponin I Valproic Acid 48 L 03/21/19 03/21/19 03/21/19 04:19 04:19 08:09 WBC 16.89 H D RBC 2.90 L Hgb 7.7 L Hct 24.2 L MCV 83.4 MCH 26.6 MCHC 31.8 L RDW Std Deviation 61.9 H RDW Coeff of Migel 20.6 H Plt Count 370 MPV 10.0 Immature Gran % (Auto) 0.4 Neut % (Auto) 84.1 Lymph % (Auto) 10.9 Iron % (Auto) 4.5 Eos % (Auto) 0.0 Baso % (Auto) 0.1 Immature Gran # (Auto) 0.07 H Neut # (Auto) 14.21 H Lymph # (Auto) 1.84 Iron # (Auto) 0.76 H Eos # (Auto) 0.00 Baso # (Auto) 0.01 Polychromasia 1+ Anisocytosis Present Ovalocytes 1+ PT INR APTT PTT Ratio Sample Site POC pH POC pCO2 POC pO2 POC HCO3 POC Total CO2 POC Base Excess POC ABG O2 Sat Ra Test O2 Delivery Device POC O2 Rate Minute Ventilation POC FiO2 Tidal Volume PEEP Sodium 151 H Potassium 3.5 D Chloride 114 H Carbon Dioxide 33 H Anion Gap 4.0 BUN 45 H Creatinine 0.52 L Est Cr Clr Drug Dosing 85.5 Est GFR ( Amer) 124.3 Est GFR (Non-Af Amer) 107.3 BUN/Creatinine Ratio 85.7 H Glucose 137 H POC Glucose 142 H POC Glucose (other) Calcium 8.1 L Ionized Calcium Troponin I Valproic Acid 03/21/19 03/21/19 03/21/19 08:19 09:34 11:31 WBC RBC Hgb Hct MCV MCH MCHC RDW Std Deviation RDW Coeff of Migel Plt Count MPV Immature Gran % (Auto) Neut % (Auto) Lymph % (Auto) Iron % (Auto) Eos % (Auto) Baso % (Auto) Immature Gran # (Auto) Neut # (Auto) Lymph # (Auto) Iron # (Auto) Eos # (Auto) Baso # (Auto) Polychromasia Anisocytosis Ovalocytes PT INR APTT PTT Ratio Sample Site Art Line POC pH 7.51 H* POC pCO2 40 POC pO2 64 L POC HCO3 31 H POC Total CO2 32 H POC Base Excess 9.0 H POC ABG O2 Sat 92.0 Ra Test NA O2 Delivery Device Ventilator POC O2 Rate 18 Minute Ventilation 16.3 POC FiO2 40 Tidal Volume 530 PEEP 5 Sodium Potassium Chloride Carbon Dioxide Anion Gap BUN Creatinine Est Cr Clr Drug Dosing Est GFR ( Amer) Est GFR (Non-Af Amer) BUN/Creatinine Ratio Glucose POC Glucose 125 H POC Glucose (other) Calcium Ionized Calcium Troponin I 0.730 H* Valproic Acid
[2019-03-21] MEDS: VASOPRESSIN 20 UNITS in 0.9 % SODIUM CHLORIDE 100 ML IV SCH (16:39)
[2019-03-21] MEDS: QUETIAPINE FUMARATE 200 MG TAB PO SCH (16:45)
--- NOTE | 2019-03-21 17:46 | Hospitalist Progress Note ---
Date of Service March 21, 2019 Assessment & Plan (1) Cardiac arrest: Early this morning he became bradycardic and suffered a cardiopulmonary arrest. Code blue called and CPR was initiated and with ACLS medications intubated now on vent support ECHO showed moderate global hypokinesis of LV with EF 30-35% Continue monitor closely in the ICU (2) Acute respiratory failure with hypoxia: Due to aspiration ( after eating chocolate and applesauce) Was on mechanical vent support and extubated on 03/17 On 15 L oxygen with audible breath sound CXR showed progressively worsened diffuse mixed interstitial and alveolar opacities are suggestive of multifocal pneumonia. Completed course of abx with empiric vancomycin, Zosyn, doxycycline on admission and completed 7 days of Zosyn case discussed with production leader at bedside recommended to transfer to the ICU for close monitor Core safe tube in place Will keep strict NPO for now Refused NG tube placement Not sure if pt understand the risk since he wants to eat will involve ethic to assess pt with decision making Consider Speech eval S/P cardiac arrest Re-intubated on Vent support CTA chest showed everal linear nonocclusive filling defects present within segmental and subsegmental branches of the pulmonary arterial tree within the upper lobes suggestive of fibrin stranding related to chronic pulmonary emboli. Extensive bilateral tree-in-bud nodules with mixed ground glass and consol idative opacities [employer]ists on board Continue prednisone Continue monitor closely Ethic consult pending (3) On mechanically assisted ventilation: Required mechanical ventilation due to increasing hypoxia and hypercapnia S/P extubated on 03/17 and reintubated on 03/20 Monitor in the ICU (4) Elevated troponin: Troponin peak to 0.976, trending down to 0.73 Might be relating to cardiopulmonary arrest this morning and required CPR Cardiology on board Was starting on heparin drip that was discontinued as well as aspirin due to hx esophageal carcinoma with past GI bleeding ECHO showed moderate global hypokinesis of LV with EF 30-35% IV metoprolol discontinued after received 1 dose, BP dropped and was placed on levophed Will continue monitor (5) Sepsis: Presented with sepsis likely secondary to pneumonia Completed course of abx Starting another course of antibioctic with IV zosyn Startin on pressor with levophed and Vaso WBC trending down Monitor CBC (6) Anemia: Seems to be an anemia of chronic disease Hemoglobin dropped to 6.7 on 03/10 S/P 2 units PRBC on 03/10 Hemoglobin 7.7 today Will monitor hemoglobin (7) Multifocal pneumonia: Mostly due to recurrent aspiration CXR today showed progressively worsened diffuse mixed interstitial and alveolar opacities are suggestive of multifocal pneumonia. Just completed course of abx with empiric vancomycin, Zosyn, doxycycline on admission and completed 7 days of Zosyn from / Continue prednisone taper dose WBC elevated to 34 Encephalopathy secondary Sepsis Mental status appears to be back to baseline CT head negative for acute process Resolved Hyponatremia Possible component of SIADH secondary to pneumonia Na 141 today Resolved Hypertension BP dropped after received IV metoprolol Currently on pressor with Levophed and Vaso Metoprolol discontinued Hypotension Mostly due to sepsis vs dehydration vs GI bleed On Levophed and vasopressin Continue monitor closely in the ICU Will check hemoglobin Hypernatremia Na 151 today Will increase free water flush Monitor BMP Esophageal cancer GERD Refused any PEG tube Aspiration precaution Stable Lung Nodule per previous admission:CT showed 9 mm spiculated appearing nodule in the left lower lobe. This is pathologically indeterminant but concerning for neoplasm. Follow up CT chest in 3 month is recommended Schizophrenia Continue usual medications stable Nutrition Will restart on nasogastric tube feeding since pt aspirated today on Ice cream and appleasauce Patient does not want to have a PEG tube placement He has recurrent aspiration and has had multiple speech therapy evaluation and recommendation Will keep strict NPO for now Continue parental feeding DVT prophylaxis was starting on heparin subq will monitor closely due to hx GI bleed Disposition Continue monitor in the ICU Lives in [facility] facility Has no family members and or POA Code Status Full code Subjective Pt was seen and examined Lying in bed intubated on vent support Was starting on Levophed yesterday after received 1 dose of B-shellie his BP dropped ICU team met with his case management Rosa who is trying to locate a person who could act as his surrogate medical decision maker Physical Exam Physical Exam: General- respiratory distress Head- atraumatic ENT- Intubated Neck- supple, no JVD Lungs- coarse BS Heart- +tachycardia Abdomen- normal bowel sounds, soft, nontender Extremities- no calf tenderness Neuro- sedated Skin- warm & dry Results & Data Vital Signs (Past 12 Hours) Vital Signs Temp Pulse Resp BP Pulse Ox 03/21/19 17:31 38.5 C H 134 H 95 03/21/19 17:30 38.5 C H 134 H 97/51 L 95 03/21/19 17:15 38.4 C H 133 H 95 03/21/19 17:01 121 H 95 03/21/19 17:00 119 H 97/45 L 95 03/21/19 16:55 38.4 C H 118 H 96 03/21/19 16:50 38.4 C H 119 H 96 03/21/19 16:45 38.4 C H 119 H 96 03/21/19 16:40 38.4 C H 120 H 96 03/21/19 16:33 38.4 C H 122 H 24 132/50 L 96 03/21/19 16:31 117 H 96 03/21/19 16:30 112 H 95/46 L 96 03/21/19 16:01 115 H 96 03/21/19 16:00 116 H 113/56 L 96 03/21/19 15:31 111 H 97 03/21/19 15:30 114 H 98/54 L 96 03/21/19 15:01 116 H 97 03/21/19 15:00 119 H 117/56 L 97 03/21/19 14:31 122 H 97 03/21/19 14:30 123 H 115/59 L 97 03/21/19 14:01 119 H 97 03/21/19 14:00 118 H 108/55 L 96 03/21/19 13:31 38.4 C H 120 H 95 03/21/19 13:30 119 H 117/64 94 03/21/19 13:01 127 H 95 03/21/19 13:00 127 H 134/80 94 03/21/19 12:31 121 H 97 03/21/19 12:30 121 H 131/64 97 03/21/19 12:01 115 H 98 03/21/19 12:00 107 H 105/49 L 98 03/21/19 11:31 113 H 97 03/21/19 11:30 112 H 101/51 L 97 03/21/19 11:01 109 H 96 03/21/19 11:00 112 H 106/51 L 96 03/21/19 10:46 120 H 21 93 03/21/19 10:31 119 H 93 03/21/19 10:30 120 H 112/58 L 93 03/21/19 10:01 37.8 C H 128 H 97 03/21/19 10:00 129 H 139/75 96 03/21/19 09:30 125 H 111/53 L 97 03/21/19 09:01 119 H 95 03/21/19 09:00 120 H 117/53 L 94 03/21/19 08:31 130 H 93 03/21/19 08:30 37.8 C H 128 H 158/98 H 92 03/21/19 08:00 128 H 162/88 H 91 03/21/19 07:46 123 H 27 H 95 03/21/19 07:31 95 H 96 03/21/19 07:30 100 H 112/60 96 03/21/19 07:01 104 H 96 03/21/19 07:00 105 H 114/63 96 03/21/19 06:45 106 H 96 03/21/19 06:01 99 H 94 03/21/19 06:00 96 H 107/56 L 94
[2019-03-21 19:12] LABS: Hematocrit (blood only) 25.9 % (42-52); Hemoglobin 8.3 g/dL (14.0-18.0)
[2019-03-21] MEDS: FIBERSOURCE HN 1.2 CAL 1000 ML BAG PO SCH (20:23)
[2019-03-22] MEDS: INSULIN ASPART 100 UNITS/ML 3 ML PEN SC SCH ×6 (00:40→21:03)
[2019-03-22] MEDS: LEVALBUTEROL HCL 0.63 MG/3 ML NEB NEB SCH ×4 (01:45→19:33)
[2019-03-22] MEDS: fentaNYL citrate 100 MCG/2 ML VIAL IV PRN ×3 (03:51→16:08)
[2019-03-22 04:31] LABS: Hematocrit (blood only) 27.8 % (42-52); Mean Corpuscular Hgb Conc 32.4 g/dL (32-36); Mean Corpuscular Volume 83.2 fL (80-100); Mean Platelet Volume 10.4 fL (7.4-10.4); Platelet Count 354 K/uL (130-400); RDW Coefficient of Variation 19.5 % (11.5-14.5); RDW Standard Deviation 59.1 fL (36.4-46.3); Red Blood Count 3.34 M/uL (4.7-6.1); White Blood Count 15.27 K/uL (4.8-10.8)
[2019-03-22 04:49] LABS: Alanine Aminotransferase 31 U/L (12-78); Albumin Level 1.8 gm/dl (3.4-5.0); Aspartate Aminotransferase 19 U/L (15-37); BUN Creatinine Ratio 76.7 (10-20); Bilirubin Direct < 0.1 mg/dl (0-0.2); Blood Urea Nitrogen 35 mg/dl (7-18); Calcium 8.4 mg/dl (8.5-10.1); Carbon Dioxide 34 mmol/L (21-32); Chloride 116 mmol/L (98-107); Creatinine Clr Calc Pharmacy 109.2 ml/min; Est GFR (African American) 130.8; Est GFR (Non-African American) 112.8; Glucose 118 mg/dl (70-99); Magnesium 2.2 mg/dl (1.8-2.4); Potassium 3.7 mmol/L (3.5-5.1); Sodium 153 mmol/L (136-145)
[2019-03-22 04:52] LABS: Alkaline Phosphatase 71 U/L (45-117); Bilirubin,Total 0.3 mg/dl (0.2-1); Total Protein 6.1 gm/dl (6.4-8.2)
[2019-03-22] MEDS: PIPERACILLIN/TAZOBACTAM 3.375 GM in DEXTROSE 5% 100 ML IV SCH (04:58)
[2019-03-22 05:56] LABS: iSTAT Arterial Blood Gas HCO3 33 meg/L (19-24); iSTAT Arterial Blood Gas pCO2 51 mmHg (35-46); iSTAT Arterial Blood Gas pH 7.43 (7.35-7.45); iSTAT Carbon Dioxide 35 mEq/l (24-31); iSTAT FiO2 40 %; iSTAT Site Art Line
[2019-03-22] MEDS: HEPARIN SOD 5,000 UNIT/0.5 ML VIAL SQ SCH ×2 (06:40→13:48)
[2019-03-22] MEDS: predniSONE 10 MG TABLET PO SCH (07:37)
[2019-03-22] MEDS: BENZTROPINE MESYLATE 0.5 MG TAB PO SCH ×2 (07:38→21:03)
[2019-03-22] MEDS: risperiDONE 2 MG TABLET PO SCH ×2 (07:38→21:03)
[2019-03-22] MEDS: FAMOTIDINE 20 MG TAB PO SCH ×2 (07:38→21:03)
[2019-03-22] MEDS: ATORVASTATIN 40 MG TAB NG SCH (07:38)
[2019-03-22] MEDS: VALPROIC ACID SOLN 250 MG/5 ML UDC PO SCH ×2 (07:38→21:03)
[2019-03-22] MEDS: MAGNESIUM OXIDE 400 MG TAB PO SCH (07:40)
[2019-03-22] MEDS: AMPICILLIN/SULBACTAM SOD 3,000 MG in 0.9 % SODIUM CHLORIDE 100 ML IV SCH ×3 (09:57→21:05)
--- NOTE | 2019-03-22 12:06 | Critical Care Progress Note ---
Date of Service March 22, 2019 Assessment & Plan (1) Cardiac arrest: Neuro - Acute encephalopathy Sedation: Versed and fentanyl pushes -Patient does not have a surrogate decision-maker, Ethics team -Patient has been refusing feeding tube placement -Patient continues to be noncompliant with n.p.o. recommendations -If patient were to undergo esophagectomy for his esophageal cancer as proposed he would require feeding tube placement: Does not comprehend insight into requirement of feeding tube -Patient does not appear to understand the risk of recurrent aspiration pneumonitis and aspiration pneumonia: Unable to teach back or explain consequences of decisions -Patient does not appear to understand risk of repeated intubation, airway trauma, need for possible tracheostomy: Unable to teach back or explain consequences of decision Sedation/analgesia APAP 650 mg p.o. every 4 hours as needed Continue risperidone 2 mg p.o. twice daily Continue valproic acid 250 mg p.o. twice daily -Repeat Depakote level low, will give 1 g load 03/21 follow-up Depakote level in 48 hours Cardiac - Cardiac arrest -Reviewed cardiology consultation. -Not tolerating beta-shellie therapy Respiratory - Acute hypoxic respiratory failure ARDS survivor Recurrent aspiration - NT suctioning: dark apple sauce texture removed: 03/19 - Patient recurrently aspiration Treated with empiric Vanco, Zosyn, doxycycline on admission. Completed 7 days of Zosyn () -Starting Zosyn for another 7-day course -Bronchoscopy results: Klebsiella: De-escalate to Unasyn given co ncerns for recurrent aspiration GI - Esophageal cancer with multiple SR. VENDOR MANAGEMENT ASSOCIATE evaluations in the past. SR. VENDOR MANAGEMENT ASSOCIATE has recommended thickened liquids, patient continually noncompliant with recommendations in the past and reportedly will take thin liquids from other residents after observed meals ORGANIZATIONAL RESEARCH CONSULTANT High aspiration risk with recurrent past aspiration events [facility] with impact with a goal rate of 65 cc/h (1560 kcals for estimated daily caloric need of [id number] kcals per day). Concerns given patient noncompliance, but could benefit from PEG tube ENDO - Adequate glycemic control on ICU protocol, serum glucose [id number] last 24 hours. Continue sliding scale aspart. Prednisone taper as follows: 15 mg day 1 of 4 days, followed by 10 mg x 4 days, followed by 5 mg x 4 days. HEME - Chronic normocytic normochromic anemia. 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 RENAL Hypernatremia - 2.3 L free water deficit, increase free water flushes to 200mL every 4 hours ID - Aspiration pneumonia treated with 7 days of Zosyn as above. -De-escalate to Unasyn day 3 of therapy LINES/IV ACCESS - PIVs intact. Left radial arterial line DVT PROPHYLAXIS - Heparin 5000 units 3 times daily Patient critically ill due to aspiration pneumonitis and acute hypoxic respiratory failure I met the patient's pillowcase cleaner Robertochely wireline supervisor: [phone] (Zonia) Our case management and patient's pillowcase cleaner attempting to locate a person who could act as his surrogate medical decision maker I have personally spent 35 minutes of critical care time in the direct management of this patient. This is a life/limb threatening event. This includes time spent evaluating patient, direct bedside care, chart review, placing orders, interpretation of diagnostic studies, discussion with consultants, patient, and/or family members regarding treatment decisions, as well as other required patient management activities. This time is exclusive of all separately billable procedures, and teaching time and separate from and in addition to any other critical care service time. Subjective No overnight events Review of Systems Review of Systems: Unobtainable due to endotracheal tube Physical Exam Physical Exam: General: Sedated nontoxic. Skin: Warm, dry, Head: Atraumatic Ears, nose, mouth and throat: Airway obscured by endotracheal tube Cardiovascular: Normal peripheral perfusion Respiratory: Coarse sounds bilaterally Gastrointestinal: Non distended Musculoskeletal: No deformity Results & Data Vital Signs (Past 12 Hours) Vital Signs Pulse Pulse Resp BP Pulse Ox 03/22/19 11:08 106 H 19 95 03/22/19 11:01 104 H 94 03/22/19 11:00 106 H 144/76 H 93 03/22/19 10:31 105 H 94 03/22/19 10:30 107 H 134/70 93 03/22/19 10:01 112 H 95 03/22/19 10:00 105 H 131/67 92 03/22/19 09:31 105 H 94 03/22/19 09:30 105 H 127/66 93 03/22/19 09:01 108 H 94 03/22/19 09:00 106 H 130/67 94 03/22/19 08:41 89 18 95 03/22/19 08:39 89 18 40 L 03/22/19 08:31 98 H 95 03/22/19 08:30 100 H 150/79 H 94 03/22/19 08:01 102 H 93 03/22/19 08:00 99 H 152/81 H 94 03/22/19 07:31 103 H 95 03/22/19 07:30 103 H 134/72 93 03/22/19 07:01 106 H 94 03/22/19 07:00 106 H 145/77 H 93 03/22/19 06:45 105 H 94 03/22/19 06:30 108 H 146/79 H 93 03/22/19 06:01 105 H 94 03/22/19 06:00 106 H 144/78 H 93 03/22/19 05:30 107 H 149/79 H 94 03/22/19 05:01 113 H 95 03/22/19 05:00 112 H 141/80 H 94 03/22/19 04:45 113 H 18 95 03/22/19 04:30 116 H 141/78 H 93 03/22/19 04:01 119 H 94 03/22/19 04:00 118 H 147/80 H 93 03/22/19 03:30 120 H 157/84 H 90 03/22/19 03:01 119 H 91 03/22/19 03:00 119 H 150/80 H 90 03/22/19 02:30 119 H 142/74 H 94 03/22/19 02:04 107 H 18 95 03/22/19 02:01 105 H 94 03/22/19 02:00 105 H 123/64 94 03/22/19 01:30 104 H 123/66 95 03/22/19 01:01 98 H 95 03/22/19 01:00 100 H 106/57 L 94 03/22/19 00:30 103 H 113/61 93 03/22/19 00:01 105 H 92 03/22/19 00:00 103 H 107/56 L 92 Laboratory Results 03/22/19 03/22/19 03/22/19 Range/Units 07:37 05:42 04:15 WBC (4.8-10.8) K/uL RBC (4.7-6.1) M/uL Hgb (14.0-18.0) g/dL Hct (42-52) % MCV (80-100) fL MCH (25-34) pg MCHC (32-36) g/dL RDW Std Deviation (36.4-46.3) fL RDW Coeff of Migel (11.5-14.5) % Plt Count (130-400) K/uL MPV (7.4-10.4) fL Sample Site Art Line POC pH 7.43 (7.35-7.45) POC pCO2 51 H (35-46) mmHg POC pO2 98 H (80-95) mmHg POC HCO3 33 H (19-24) hamlet/L POC Total CO2 35 H (24-31) mEq/l POC Base Excess 9.0 H (-9-1.8) hamlet/L POC ABG O2 Sat 97.0 H (90-95) % Ra Test NA O2 Delivery Device Ventilator POC O2 Rate 18 Minute Ventilation 10.9 POC FiO2 40 % Tidal Volume 530 PEEP 5 Sodium (136-145) mmol/L Potassium (3.5-5.1) mmol/L Chloride (98-107) mmol/L Carbon Dioxide (21-32) mmol/L Anion Gap (3-11) BUN (7-18) mg/dl Creatinine (0.6-1.4) mg/dl Est Cr Clr Drug Dosing ml/min Est GFR ( Amer) Est GFR (Non-Af Amer) BUN/Creatinine Ratio (10-20) Glucose (70-99) mg/dl POC Glucose 139 H 121 H (70-99) Calcium (8.5-10.1) mg/dl Magnesium (1.8-2.4) mg/dl Total Bilirubin (0.2-1) mg/dl Direct Bilirubin (0-0.2) mg/dl AST (15-37) U/L ALT (12-78) U/L Alkaline Phosphatase (45-117) U/L Total Protein (6.4-8.2) gm/dl Albumin (3.4-5.0) gm/dl Blood Type Antibody Screen Crossmatch 03/22/19 03/22/1903/22/19 Range/Units 04:10 04:10 00:34 WBC 15.27 H (4.8-10.8) K/uL RBC 3.34 L (4.7-6.1) M/uL Hgb 9.0 L (14.0-18.0) g/dL Hct 27.8 L (42-52) % MCV 83.2 (80-100) fL MCH 26.9 (25-34) pg MCHC 32.4 (32-36) g/dL RDW Std Deviation 59.1 H (36.4-46.3) fL RDW Coeff of Migel 19.5 H (11.5-14.5) % Plt Count 354 (130-400) K/uL MPV 10.4 (7.4-10.4) fL Sample Site POC pH (7.35-7.45) POC pCO2 (35-46) mmHg POC pO2 (80-95) mmHg POC HCO3 (19-24) hamlet/L POC Total CO2 (24-31) mEq/l POC Base Excess (-9-1.8) hamlet/L POC ABG O2 Sat (90-95) % Ra Test O2 Delivery Device POC O2 Rate Minute Ventilation POC FiO2 % Tidal Volume PEEP Sodium 153 H (136-145) mmol/L Potassium 3.7 (3.5-5.1) mmol/L Chloride 116 H (98-107) mmol/L Carbon Dioxide 34 H (21-32) mmol/L Anion Gap 3.0 (3-11) BUN 35 H (7-18) mg/dl Creatinine 0.46 L (0.6-1.4) mg/dl Est Cr Clr Drug Dosing 109.2 ml/min Est GFR ( Amer) 130.8 Est GFR (Non-Af Amer) 112.8 BUN/Creatinine Ratio 76.7 H (10-20) Glucose 118 H (70-99) mg/dl POC Glucose 117 H (70-99) Calcium 8.4 L (8.5-10.1) mg/dl Magnesium 2.2 (1.8-2.4) mg/dl Total Bilirubin 0.3 (0.2-1) mg/dl Direct Bilirubin < 0.1 (0-0.2) mg/dl AST 19 (15-37) U/L ALT 31 (12-78) U/L Alkaline Phosphatase 71 (45-117) U/L Total Protein 6.1 L (6.4-8.2) gm/dl Albumin 1.8 L (3.4-5.0) gm/dl Blood Type Antibody Screen Crossmatch 03/21/19 03/21/19 03/21/19 Range/Units 19:48 19:02 16:44 WBC (4.8-10.8) K/uL RBC (4.7-6.1) M/uL Hgb 8.3 L (14.0-18.0) g/dL Hct 25.9 L (42-52) % MCV (80-100) fL MCH (25-34) pg MCHC (32-36) g/dL RDW Std Deviation (36.4-46.3) fL RDW Coeff of Migel (11.5-14.5) % Plt Count (130-400) K/uL MPV (7.4-10.4) fL Sample Site POC pH (7.35-7.45) POC pCO2 (35-46) mmHg POC pO2 (80-95) mmHg POC HCO3 (19-24) hamlet/L POC Total CO2 (24-31) mEq/l POC Base Excess (-9-1.8) hamlet/L POC ABG O2 Sat (90-95) % Ra Test O2 Delivery Device POC O2 Rate Minute Ventilation POC FiO2 % Tidal Volume PEEP Sodium (136-145) mmol/L Potassium (3.5-5.1) mmol/L Chloride (98-107) mmol/L Carbon Dioxide (21-32) mmol/L Anion Gap (3-11) BUN (7-18) mg/dl Creatinine (0.6-1.4) mg/dl Est Cr Clr Drug Dosing ml/min Est GFR ( Amer) Est GFR (Non-Af Amer) BUN/Creatinine Ratio (10-20) Glucose (70-99) mg/dl POC Glucose 151 H 199 H (70-99) Calcium (8.5-10.1) mg/dl Magnesium (1.8-2.4) mg/dl Total Bilirubin (0.2-1) mg/dl Direct Bilirubin (0-0.2) mg/dl AST (15-37) U/L ALT (12-78) U/L Alkaline Phosphatase (45-117) U/L Total Protein (6.4-8.2) gm/dl Albumin (3.4-5.0) gm/dl Blood Type Antibody Screen Crossmatch 03/21/19 Range/Units 13:35 WBC (4.8-10.8) K/uL RBC (4.7-6.1) M/uL Hgb (14.0-18.0) g/dL Hct (42-52) % MCV (80-100) fL MCH (25-34) pg MCHC (32-36) g/dL RDW Std Deviation (36.4-46.3) fL RDW Coeff of Migel (11.5-14.5) % Plt Count (130-400) K/uL MPV (7.4-10.4) fL Sample Site POC pH (7.35-7.45) POC pCO2 (35-46) mmHg POC pO2 (80-95) mmHg POC HCO3 (19-24) hamlet/L POC Total CO2 (24-31) mEq/l POC Base Excess (-9-1.8) hamlet/L POC ABG O2 Sat (90-95) % Ra Test O2 Delivery Device POC O2 Rate Minute Ventilation POC FiO2 % Tidal Volume PEEP Sodium (136-145) mmol/L Potassium (3.5-5.1) mmol/L Chloride (98-107) mmol/L Carbon Dioxide (21-32) mmol/L Anion Gap (3-11) BUN (7-18) mg/dl Creatinine (0.6-1.4) mg/dl Est Cr Clr Drug Dosing ml/min Est GFR ( Amer) Est GFR (Non-Af Amer) BUN/Creatinine Ratio (10-20) Glucose (70-99) mg/dl POC Glucose (70-99) Calcium (8.5-10.1) mg/dl Magnesium (1.8-2.4) mg/dl Total Bilirubin (0.2-1) mg/dl Direct Bilirubin (0-0.2) mg/dl AST (15-37) U/L ALT (12-78) U/L Alkaline Phosphatase (45-117) U/L Total Protein (6.4-8.2) gm/dl Albumin (3.4-5.0) gm/dl Blood Type A Negative Antibody Screen NEGATIVE Crossmatch See Detail
--- NOTE | 2019-03-22 12:32 | XRay Report ---
XR chest 1V portable CLINICAL HISTORY: Respiratory failure COMPARISON STUDY: 03/20/2019 FINDINGS: There is an endotracheal tube 32 mm above the raj. There is a left internal jugular cent ral venous catheter which projects of the superior vena cava. There is a nasogastric tube which passe s into the stomach. The patient is hyperinflated. There are bilateral pulmonary interstitial and airs pace opacities, minimally improved compared the prior study IMPRESSION: 1. Satisfactory positioning of the lines and tubes 2. Mild interval improvement in the bilateral interstitial and airspace opacities Electronically signed by: Frankie Vela M.D. 03/22/2019 12:30 PM
[2019-03-22] MEDS: METOPROLOL TARTRATE 1 MG/ML VIAL IV SCH ×2 (12:36→17:27)
--- NOTE | 2019-03-22 14:43 | Hospitalist Progress Note ---
Date of Service March 22, 2019 Assessment & Plan (1) Cardiac arrest: s/p cardiopulmonary arrest. Code blue called and CPR was initiated and with ACLS medications intubated on vent support sedated with versed ECHO showed moderate global hypokinesis of LV with EF 30-35% Continue monitor closely in the ICU (2) Acute respiratory failure with hypoxia: Due to aspiration ( after eating chocolate and applesauce) Was on mechanical vent support and extubated on 03/17 On 15 L oxygen with audible breath sound CXR showed progressively worsened diffuse mixed interstitial and alveolar opacities are suggestive of multifocal pneumonia. Completed course of abx with empiric vancomycin, Zosyn, doxycycline on admission and completed 7 days of Zosyn case discussed with voip engineer at bedside recommended to transfer to the ICU for close monitor Core safe tube in place Will keep strict NPO for now Refused NG tube placement Not sure if pt understand the risk since he wants to eat will involve ethic to assess pt with decision making Consider Speech eval 03/22 S/P cardiac arrest Re-intubated on Vent support CTA chest showed everal linear nonocclusive filling defects present within segmental and subsegmental branches of the pulmonary arterial tree within the upper lobes suggestive of fibrin stranding related to chronic pulmonary emboli. Extensive bilateral tree-in-bud nodules with mixed ground glass and consolidative opacities Rolling Machine Tender on board Continue prednisone Continue monitor closely Ethic consult pending (3) On mechanically assisted ventilation: Required mechanical ventilation due to increasing hypoxia and hypercapnia S/P extubated on 03/17 and reintubated on 03/20 Monitor in the ICU (4) Elevated troponin: Troponin peak to 0.976, trending down to 0.73 Might be relating to cardiopulmonary arrest this morning and required CPR Cardiology on board Was starting on heparin drip that was discontinued as well as aspirin due to hx esophageal carcinoma with past GI bleeding ECHO showed moderate global hypokinesis of LV with EF 30-35% IV metoprolol discontinued after received 1 dose, BP dropped and was placed on levophed Will continue monitor (5) Sepsis: Presented with sepsis likely secondary to pneumonia Has been febrile in the last 24 hr starting another course of antibiotic with IV zosyn yesterday Abx changed to Unasyn today Levophed discontinued Continue on Vasopressin WBC trending down to 15 Monitor CBC (6) Anemia: Seems to be an anemia of chronic disease Hemoglobin dropped to 6.7 on 03/10 S/P 2 units PRBC on 03/10 Hemoglobin improves to 9 today Will monitor hemoglobin (7) Multifocal pneumonia: Mostly due to recurrent aspiration CXR today showed progressively worsened diffuse mixed interstitial and alveolar opacities are suggestive of multifocal pneumonia. Just completed course of abx with empiric vancomycin, Zosyn, doxycycline on admission and completed 7 days of Zosyn from / Continue prednisone taper dose Has been febrile Starting on Unasyn WBC elevated improved to 15 Encephalopathy secondary Sepsis Mental status appears to be back to baseline CT head negative for acute process Intubated and sedated with versed Hypertension BP dropped after received IV metoprolol during hospital course BP improves and levophed discontinued Currently on pressor with Vasopressin Continue monitor Hypotension Mostly due to sepsis vs dehydration was starting on Levophed and vasopressin BP improved and levophed d/c Continue on Vasopressin Continue monitor closely in the ICU Hypernatremia Na 153 today Increase free water flush Monitor BMP Esophageal cancer GERD Refused any PEG tube Aspiration precaution Stable Lung Nodule per previous admission:CT showed 9 mm spiculated appearing nodule in the left lower lobe. This is pathologically indeterminant but concerning for neoplasm. Follow up CT chest in 3 month is recommended Schizophrenia Continue usual medications stable Nutrition Will restart on nasogastric tube feeding since pt aspirated today on Ice cream and appleasauce Patient does not want to have a PEG tube placement He has recurrent aspiration and has had multiple speech therapy evaluation and recommendation Will keep strict NPO for now Continue parental feeding DVT prophylaxis was starting on heparin subq will monitor closely due to hx GI bleed Disposition Continue monitor in the ICU Lives in [facility] facility Has no family members and or POA Code Status Full code Subjective Pt was seen and examined Lying in bed intubated and vent support On versed drip for sedation Physical Exam Physical Exam: General- respiratory distress Head- atraumatic ENT- Intubated Neck- supple, no JVD Lungs- coarse BS Heart- +tachycardia Abdomen- normal bowel sounds, soft, nontender Extremities- no calf tenderness Neuro- sedated Skin- warm & dry Results & Data Vital Signs (Past 12 Hours) Vital Signs Pulse Pulse Resp BP Pulse Ox 03/22/19 13:31 104 H 96 03/22/19 13:30 100 H 132/75 94 03/22/19 13:22 105 H 20 96 03/22/19 13:01 95 H 95 03/22/19 13:00 93 H 136/73 94 03/22/19 12:36 110 H 166/70 H 03/22/19 12:31 108 H 95 03/22/19 12:30 107 H 135/76 94 03/22/19 12:01 109 H 95 03/22/19 12:00 94 H 141/74 H 94 03/22/19 11:31 107 H 95 03/22/19 11:30 106 H 132/74 94 03/22/19 11:08 106 H 19 95 03/22/19 11:01 104 H 94 03/22/19 11:00 106 H 144/76 H 93 03/22/19 10:31 105 H 94 03/22/19 10:30 107 H 134/70 93 03/22/19 10:01 112 H 95 03/22/19 10:00 105 H 131/67 92 03/22/19 09:31 105 H 94 03/22/19 09:30 105 H 127/66 93 03/22/19 09:01 108 H 94 03/22/19 09:00 106 H 130/67 94 03/22/19 08:41 89 18 95 03/22/19 08:39 89 18 40 L 03/22/19 08:31 98 H 95 03/22/19 08:30 100 H 150/79 H 94 03/22/19 08:01 102 H 93 03/22/19 08:00 99 H 152/81 H 94 03/22/19 07:31 103 H 95 03/22/19 07:30 103 H 134/72 93 03/22/19 07:01 106 H 94 03/22/19 07:00 106 H 145/77 H 93 03/22/19 06:45 105 H 94 03/22/19 06:30 108 H 146/79 H 93 03/22/19 06:01 105 H 94 03/22/19 06:00 106 H 144/78 H 93 03/22/19 05:30 107 H 149/79 H 94 03/22/19 05:01 113 H 95 03/22/19 05:00 112 H 141/80 H 94 03/22/19 04:45 113 H 18 95 03/22/19 04:30 116 H 141/78 H 93 03/22/19 04:01 119 H 94 03/22/19 04:00 118 H 147/80 H 93 03/22/19 03:30 120 H 157/84 H 90 03/22/19 03:01 119 H 91 03/22/19 03:00 119 H 150/80 H 90
[2019-03-22] MEDS: QUETIAPINE FUMARATE 200 MG TAB PO SCH (15:56)
[2019-03-22] MEDS: ACETAMINOPHEN SOLN 325 MG/10.15 ML UDC PO PRN (15:56)
[2019-03-22] MEDS: FIBERSOURCE HN 1.2 CAL 1000 ML BAG PO SCH (16:07)
[2019-03-22] MEDS: VASOPRESSIN 20 UNITS in 0.9 % SODIUM CHLORIDE 100 ML IV SCH (18:21)
[2019-03-22] MEDS: METOPROLOL TARTRATE 1 MG/ML VIAL IV PRN (21:04)
[2019-03-23] MEDS: INSULIN ASPART 100 UNITS/ML 3 ML PEN SC SCH ×6 (00:17→20:22)
[2019-03-23] MEDS: ACETAMINOPHEN SOLN 325 MG/10.15 ML UDC PO PRN (00:19)
[2019-03-23] MEDS: fentaNYL citrate 100 MCG/2 ML VIAL IV PRN ×5 (00:19→11:50)
[2019-03-23] MEDS: HEPARIN SOD 5,000 UNIT/0.5 ML VIAL SQ SCH ×4 (00:19→22:20)
[2019-03-23] MEDS: LEVALBUTEROL HCL 0.63 MG/3 ML NEB NEB SCH ×4 (02:36→19:03)
[2019-03-23] MEDS: MIDAZOLAM HCL 125 MG/250 ML BAG IV SCH (04:14)
[2019-03-23] MEDS: AMPICILLIN/SULBACTAM SOD 3,000 MG in 0.9 % SODIUM CHLORIDE 100 ML IV SCH ×4 (05:02→22:19)
--- NOTE | 2019-03-23 07:23 | XRay Report ---
XR chest 1V portable CLINICAL HISTORY: intubation COMPARISON STUDY: Chest CT March 20, 2019. Chest radiograph March 22, 2019. FINDINGS: Tip of nasogastric tube is within the body of the stomach. Tip of endotracheal tube is 3.4 cm above the raj. Left internal jugular central line is in place. There is no pneumothorax. No ple ural effusion is identified. Bilateral airspace opacities have slightly increased. Underlying emphyse ma is noted. IMPRESSION: 1. Satisfactory positioning of lines and tubes. 2. Slight increase in bilateral airspace opacities which suggests pneumonia superimposed upon emphyse ma. Electronically signed by: Mike Hernandez M.D. 03/23/2019 7:22 AM
[2019-03-23] MEDS: BENZTROPINE MESYLATE 0.5 MG TAB PO SCH ×2 (07:58→20:19)
[2019-03-23] MEDS: VALPROIC ACID SOLN 250 MG/5 ML UDC PO SCH ×2 (07:58→20:20)
[2019-03-23] MEDS: ATORVASTATIN 40 MG TAB NG SCH (07:59)
[2019-03-23] MEDS: predniSONE 10 MG TABLET PO SCH (07:59)
[2019-03-23] MEDS: MAGNESIUM OXIDE 400 MG TAB PO SCH (07:59)
[2019-03-23] MEDS: FAMOTIDINE 20 MG TAB PO SCH ×2 (07:59→20:20)
[2019-03-23] MEDS: risperiDONE 2 MG TABLET PO SCH ×2 (07:59→21:09)
[2019-03-23 08:33] LABS: BUN Creatinine Ratio 68.6 (10-20); Calcium 8.6 mg/dl (8.5-10.1); Creatinine Clr Calc Pharmacy 118.4 ml/min; Est GFR (African American) 135.8; Est GFR (Non-African American) 117.1; Potassium 3.9 mmol/L (3.5-5.1)
[2019-03-23 09:11] LABS: Hematocrit (blood only) 29.4 % (42-52); Hemoglobin 9.1 g/dL (14.0-18.0); Mean Platelet Volume 10.9 fL (7.4-10.4); Platelet Count 350 K/uL (130-400); RDW Coefficient of Variation 19.6 % (11.5-14.5); RDW Standard Deviation 60.2 fL (36.4-46.3); Red Blood Count 3.46 M/uL (4.7-6.1); White Blood Count 15.98 K/uL (4.8-10.8)
[2019-03-23] MEDS ORDERED: HydrALAZINE HCL 20 MG/ML VIAL ONE (10:26)
[2019-03-23] MEDS ORDERED: HydrALAZINE HCL 20 MG/ML VIAL IV STA (10:30)
--- NOTE | 2019-03-23 10:53 | Pharmacy Report ---
Pharmacy Glycemic Short Note 2 - Date of Service March 23, 2019 - Glycemic Short BSG Results (Last 24 hours): 03/21/19 03/22/19 03/22/19 04:28 11:59 15:54 Glucose POC Glucose 147 H 143 H POC Glucose (other) 145 H 03/22/19 03/23/19 03/23/19 20:58 00:16 05:03 Glucose POC Glucose 170 H 126 H 133 H POC Glucose (other) 03/23/19 03/23/19 07:16 08:06 Glucose Cancelled 128 H POC Glucose POC Glucose (other) OUTPATIENT ANTIDIABETIC REGIMEN: * N/A (no prior dx of DM) * A1c = 6.0% 03/11/19 (consistent w/ "pre-diabetes") ASSESSMENT: 03/23 * BSGs well controlled over last 24 hrs * Patient remains intubated this AM, receiving Fibersource 1.2 tube feeds @ 35cc/hr, still receiving Prednisone (currently 15mg/day) * Will continue current orders at this time PLAN FOR INPATIENT GLYCEMIC CONTROL: * Basal insulin * None * Bolus insulin (small decrease in dose) * NovoLog per scale Q 4 hrs * Goal Range: Low 120 mg/dL - High 150 mg/dL * Correction Factor: 30 mg/dL/unit * Nutritional / Prandial insulin per carb ratio of 1 unit per 15 grams CHO administered in tube feeds * Reassess insulin needs with each step-down in steroid dose PLAN FOR DISCHARGE: * given his A1c, he will not likely require insulin on discharge if acute stressors resolve and steroids are stopped
--- NOTE | 2019-03-23 11:29 | Critical Care Progress Note ---
Date of Service March 23, 2019 Assessment & Plan (1) Acute respiratory failure with hypoxia: Impression: 1. Esophageal carcinoma, has not received treatment yet. 2. Acute respiratory failure secondary to aspiration. 3. Multilobar pneumonia with aspiration. 4. Severe COPD, gold level 3, currently intubated. 5. Hypertension. 6. Free water deficit with hypernatremia. Plan: 1. Continue with Unasyn. 2. The patient failed CPAP trial today. 3. Given his severe COPD and being intubated, I will add systemic steroids. 4. Bronchodilators on regular basis. 5. Midazolam for sedation. 6. DVT prophylaxis. 7. Discontinue prednisone maintenance dose. 8. Start the patient on hydralazine for blood pressure control. 9. Continue antipsychotic medications. 10. it does not appear that the patient is having withdrawal from neuroleptic medications as he has been on it. 11. Continue tube feeding. 12. Appreciate ethics committee. 13. My goal would be to treat the patient until achieve extubation if possible, then further discussion with the patient in regard of realistic approach of his esophageal cancer, the patient refused apparently adamantly any type of feeding tube, which is part of esophagectomy tube to place a J-tube anyway. Discussed with the staff in details, critical care time spent with the patient was 60 minutes. Subjective The patient with history of esophageal carcinoma, was in the process of planning for future esophagectomy, patient with history of schizophrenia, currently the patient aspirated and in the being intubated. Recent bronchoscopy had revealed large amount of aspirated material. The patient is currently sedated and intubated, review of system is not obtainable. Review of Systems Review of Systems: Review of system is not obtainable as the patient being intubated and sedated. Physical Exam Physical Exam: Vital signs showed persistent hypertension, S1-S2 regular rate and rhythm, occasional PVCs, cachexia, no JVD, lungs with distant breath sounds, abdomen is benign and scaphoid, no edema, cachexia, neurologically difficult to assess. Patient is sedated. No skin rash, moist mucosa. Results & Data Vital Signs (Past 12 Hours) Vital Signs Pulse Pulse Resp BP Pulse Ox 03/23/19 11:01 107 H 173/84 H 94 03/23/19 11:00 105 H 93 03/23/19 10:30 106 H 160/88 H 95 03/23/19 10:08 105 H 27 H 96 03/23/19 10:00 103 H 151/78 H 96 03/23/19 09:30 101 H 130/71 96 03/23/19 09:00 101 H 121/63 93 03/23/19 08:30 103 H 122/66 93 03/23/19 08:00 105 H 159/82 H 96 03/23/19 07:31 83 94 03/23/19 07:30 99 H 148/74 H 93 03/23/19 07:29 91 H 18 94 03/23/19 07:26 91 H 18 94 03/23/19 07:19 147/72 H 03/23/19 07:00 87 147/72 H 94 03/23/19 06:30 99 H 158/85 H 95 03/23/19 06:01 107 H 94 03/23/19 06:00 105 H 138/69 93 03/23/19 05:53 106 H 154/85 H 94 03/23/19 05:30 103 H 154/85 H 94 03/23/19 05:01 112 H 94 03/23/19 05:00 112 H 153/85 H 94 03/23/19 04:45 112 H 25 H 94 03/23/19 04:30 112 H 150/84 H 93 03/23/19 04:01 113 H 93 03/23/19 04:00 112 H 150/84 H 92 03/23/19 03:31 111 H 143/76 H 94 03/23/19 03:05 106 H 20 93 03/23/19 03:01 98 H 93 03/23/19 03:00 101 H 106/57 L 93 03/23/19 02:30 103 H 111/59 L 93 03/23/19 02:01 106 H 95 03/23/19 02:00 107 H 102/56 L 92 03/23/19 01:30 107 H 101/58 L 93 03/23/19 01:01 108 H 94 03/23/19 01:00 108 H 131/72 93 03/23/19 00:30 109 H 144/80 H 93 03/23/19 00:01 111 H 94 03/23/19 00:00 111 H 139/80 93 03/22/19 23:43 108 H 18 93 03/22/19 23:30 112 H 146/86 H 92 Laboratory Results Labs showed elevated white count, and hematocrit is stable, BMP is acceptable. Diagnostic Findings CAT scan of the chest showed tree-in-bud appearance, multiple areas of infiltrates, and comparison with 02/2019 CAT scan, it did not show these findings, 1 of them STEPHANIE pleuritic in the right lower lobe suspicious for possible malignancy.
[2019-03-23] MEDS ORDERED: HydrALAZINE HCL 20 MG/ML VIAL IV SCH (11:30)
[2019-03-23] MEDS ORDERED: methylPREDNISolone 40 MG in SYRINGE 0 ML IV SCH (11:45)
[2019-03-23] MEDS: METOPROLOL TARTRATE 1 MG/ML VIAL IV SCH ×3 (12:19→22:21)
[2019-03-23] MEDS ORDERED: HydrALAZINE HCL 20 MG/ML VIAL IV PRN ×2 (12:33→12:34)
[2019-03-23] MEDS: methylPREDNISolone 40 MG in SYRINGE 0 ML IV SCH ×2 (12:48→17:01)
[2019-03-23] MEDS: QUETIAPINE FUMARATE 200 MG TAB PO SCH (16:05)
--- NOTE | 2019-03-23 16:23 | Hospitalist Progress Note ---
Date of Service March 23, 2019 Assessment & Plan (1) Cardiac arrest: s/p cardiopulmonary arrest. Code blue called and CPR was initiated and with ACLS medications intubated on vent support sedated with versed ECHO showed moderate global hypokinesis of LV with EF 30-35% Continue monitor closely in the ICU (2) Acute respiratory failure with hypoxia: Due to aspiration ( after eating chocolate and applesauce) Was on mechanical vent support and extubated on 03/17 On 15 L oxygen with audible breath sound CXR showed progressively worsened diffuse mixed interstitial and alveolar opacities are suggestive of multifocal pneumonia. Completed course of abx with empiric vancomycin, Zosyn, doxycycline on admission and completed 7 days of Zosyn case discussed with mud grinder at bedside recommended to transfer to the ICU for close monitor Core safe tube in place Will keep strict NPO for now Refused NG tube placement Not sure if pt understand the risk since he wants to eat will involve ethic to assess pt with decision making Consider Speech eval 03/23 S/P cardiac arrest Re-intubated on Vent support CTA chest showed everal linear nonocclusive filling defects present within segmental and subsegmental branches of the pulmonary arterial tree within the upper lobes suggestive of fibrin stranding related to chronic pulmonary emboli. Extensive bilateral tree-in-bud nodules with mixed ground glass and consolidative opacities Elementary Educator on board Vent management as per ICU team Oral steroid changed to IV solumedrol 40mg IV q6h Failed CPAP trial today Continue monitor closely Ethic consult pending (3) On mechanically assisted ventilation: Required mechanical ventilation due to increasing hypoxia and hypercapnia S/P extubated on 03/17 and reintubated on 03/20 Managed per ICU team Failed CPAP trial today Monitor in the ICU (4) Elevated troponin: Troponin peak to 0.976, trending down to 0.73 Might be relating to cardiopulmonary arrest this morning and required CPR Cardiology on board Was starting on heparin drip that was discontinued as well as aspirin due to hx esophageal carcinoma with past GI bleeding ECHO showed moderate global hypokinesis of LV with EF 30-35% IV metoprolol discontinued after received 1 dose, BP dropped and was placed on levophed Will continue monitor (5) Sepsis: Presented with sepsis likely secondary to pneumonia Has been febrile in the last 24 hr starting another course of antibiotic with IV zosyn yesterday Continue IV unasyn Levophed and Vasopressin pressors discontinued WBC trending down to 15 Monitor CBC (6) Anemia: Seems to be an anemia of chronic disease Hemoglobin dropped to 6.7 on 03/10 S/P 2 units PRBC on 03/10 Hemoglobin stable 9.1 today Will monitor hemoglobin (7) Multifocal pneumonia: Mostly due to recurrent aspiration CXR today showed progressively worsened diffuse mixed interstitial and alveolar opacities are suggestive of multifocal pneumonia. Just completed course of abx with empiric vancomycin, Zosyn, doxycycline on admission and completed 7 days of Zosyn from / Steroid changed to IV solumedrol Has been febrile Continue IV Unasyn WBC elevated improved to 15 Encephalopathy secondary Sepsis Mental status appears to be back to baseline CT head negative for acute process Intubated and sedated with versed Hypertension BP dropped after received IV metoprolol during hospital course BP improves Pressors discontinued Continue monitor Hypotension Mostly due to sepsis vs dehydration was starting on Levophed and vasopressin BP improved and levophed and vasopressin d/c Continue monitor closely in the ICU Resolved Hypernatremia Na 148 today Increase free water flush Monitor BMP Esophageal cancer GERD Refused any tube feeding Aspiration precaution Will need to discuss with oncology as prognosis has not been starting on any treatment Oncology on board Lung Nodule per previous admission:CT showed 9 mm spiculated appearing nodule in the left lower lobe. This is pathologically indeterminant but concerning for neoplasm. Follow up CT chest in 3 month is recommended Schizophrenia Continue usual medications stable Nutrition Will restart on nasogastric tube feeding since pt aspirated today on Ice cream and appleasauce Patient does not want to have any tube feeding placement He has recurrent aspiration and has had multiple speech therapy evaluation and recommendation Will keep strict NPO for now Continue parental feeding DVT prophylaxis on heparin subq will monitor closely due to hx GI bleed Disposition Continue monitor in the ICU Lives in [facility] facility Has no family members and or POA Code Status Full code Subjective Pt was seen and examined Sedated and intubated on vent support On versed drip Physical Exam Physical Exam: General- Vent support Head- atraumatic ENT- Intubated Neck- supple, no JVD Lungs- diminished BS Heart- +tachycardia Abdomen- normal bowel sounds, soft Extremities- no calf tenderness Neuro- sedated Skin- warm & dry Results & Data Vital Signs (Past 12 Hours) Vital Signs Pulse Pulse Resp BP Pulse Ox 03/23/19 16:05 119 H 159/79 H 03/23/19 16:00 119 H 94 03/23/19 15:59 118 H 172/64 H 03/23/19 15:30 121 H 146/73 H 95 03/23/19 15:23 115 H 27 H 94 03/23/19 15:00 115 H 139/67 93 03/23/19 14:30 115 H 139/68 94 03/23/19 14:00 119 H 137/62 94 03/23/19 13:30 115 H 137/69 95 03/23/19 13:01 105 H 165/82 H 96 03/23/19 13:00 106 H 94 03/23/19 12:30 94 H 118/58 L 96 03/23/19 12:19 115 H 183/61 H 03/23/19 12:00 115 H 151/70 H 92 03/23/19 11:54 171/50 H 03/23/19 11:30 98 H 157/84 H 92 03/23/19 11:26 107 H 27 H 94 03/23/19 11:02 105 H 94 03/23/19 11:01 107 H 173/84 H 94 03/23/19 11:00 105 H 93 03/23/19 10:30 106 H 160/88 H 95 03/23/19 10:08 105 H 27 H 96 03/23/19 10:00 103 H 151/78 H 96 03/23/19 09:30 101 H 130/71 96 03/23/19 09:00 101 H 121/63 93 03/23/19 08:30 103 H 122/66 93 03/23/19 08:00 105 H 159/82 H 96 03/23/19 07:31 83 94 03/23/19 07:30 99 H 148/74 H 93 03/23/19 07:29 91 H 18 94 03/23/19 07:26 91 H 18 94 03/23/19 07:19 147/72 H 03/23/19 07:00 87 147/72 H 94 03/23/19 06:30 99 H 158/85 H 95 03/23/19 06:01 107 H 94 03/23/19 06:00 105 H 138/69 93 03/23/19 05:53 106 H 154/85 H 94 03/23/19 05:30 103 H 154/85 H 94 05/13/19 05:01 112 H 94 03/23/19 05:00 112 H 153/85 H 94 03/23/19 04:45 112 H 25 H 94 03/23/19 04:30 112 H 150/84 H 93
[2019-03-23] MEDS: FIBERSOURCE HN 1.2 CAL 1000 ML BAG PO SCH (17:01)
[2019-03-24] MEDS: INSULIN ASPART 100 UNITS/ML 3 ML PEN SC SCH ×7 (01:10→23:31)
[2019-03-24] MEDS: methylPREDNISolone 40 MG in SYRINGE 0 ML IV SCH ×5 (01:10→23:31)
[2019-03-24] MEDS: LEVALBUTEROL HCL 0.63 MG/3 ML NEB NEB SCH ×4 (02:03→20:11)
[2019-03-24] MEDS: AMPICILLIN/SULBACTAM SOD 3,000 MG in 0.9 % SODIUM CHLORIDE 100 ML IV SCH ×4 (04:54→22:40)
[2019-03-24] MEDS: METOPROLOL TARTRATE 1 MG/ML VIAL IV SCH ×4 (04:54→22:39)
[2019-03-24] MEDS: HEPARIN SOD 5,000 UNIT/0.5 ML VIAL SQ SCH ×3 (06:23→22:40)
--- NOTE | 2019-03-24 07:03 | XRay Report ---
XR chest 1V portable CLINICAL HISTORY: Respiratory failure COMPARISON STUDY: 03/23/2019 FINDINGS: The endotracheal tube is 30 mm above the raj. There is a left internal jugular central v enous catheter with its tip projected in the superior vena cava. There is a nasogastric tube within t he stomach. There are bilateral interstitial opacities, pneumonia versus interstitial pulmonary edema .[ IMPRESSION: 1. Satisfactory positioning of the lines and tubes 2. Bilateral interstitial opacities, pneumonia versus interstitial pulmonary edema. Electronically signed by: Frankie Vela M.D. 03/24/2019 7:01 AM
[2019-03-24] MEDS ORDERED: INSULIN GLARGINE SOLOSTAR 100 UNITS/ML 3 ML PEN SC SCH (08:00)
[2019-03-24] MEDS: MAGNESIUM OXIDE 400 MG TAB PO SCH (08:01)
[2019-03-24] MEDS: BENZTROPINE MESYLATE 0.5 MG TAB PO SCH ×2 (08:01→20:47)
[2019-03-24] MEDS: VALPROIC ACID SOLN 250 MG/5 ML UDC PO SCH ×2 (08:01→20:45)
[2019-03-24] MEDS: FAMOTIDINE 20 MG TAB PO SCH ×2 (08:01→20:47)
[2019-03-24] MEDS: risperiDONE 2 MG TABLET PO SCH ×2 (08:01→20:46)
[2019-03-24] MEDS: ATORVASTATIN 40 MG TAB NG SCH (08:01)
[2019-03-24 08:38] LABS: Hemoglobin 8.6 g/dL (14.0-18.0); Immature Granulocytes # (auto) 0.06 K/uL (0.00-0.02); Immature Granulocytes % (auto) 0.8 %; Lymphocytes # (auto) 0.44 K/uL (1.2-3.4); Mean Corpuscular Hgb Conc 31.9 g/dL (32-36); Mean Corpuscular Volume 82.3 fL (80-100); Mean Platelet Volume 10.2 fL (7.4-10.4); Monocytes # (auto) 0.21 K/uL (0.11-0.59); Monocytes % (auto) 2.9 %; Neutrophils # (auto) 6.58 K/uL (1.4-6.5); Neutrophils % (auto) 90.3 %; Platelet Count 308 K/uL (130-400); RDW Coefficient of Variation 19.3 % (11.5-14.5); RDW Standard Deviation 58.2 fL (36.4-46.3); Red Blood Count 3.28 M/uL (4.7-6.1); White Blood Count 7.29 K/uL (4.8-10.8)
[2019-03-24 09:08] LABS: BUN Creatinine Ratio 67.6 (10-20); Calcium 8.3 mg/dl (8.5-10.1); Creatinine Clr Calc Pharmacy 110.8 ml/min; Est GFR (African American) 130.8; Est GFR (Non-African American) 112.8; Potassium 3.8 mmol/L (3.5-5.1)
--- NOTE | 2019-03-24 10:45 | Pharmacy Report ---
Pharmacy Glycemic Short Note 2 - Date of Service March 24, 2019 - Glycemic Short BSG Results (Last 24 hours): 03/23/19 03/23/19 03/23/19 11:46 16:03 20:14 Glucose POC Glucose 113 H 146 H 160 H 03/24/19 03/24/19 03/24/19 01:05 04:49 07:30 Glucose POC Glucose 202 H 187 H 198 H 03/24/19 08:28 Glucose 190 H POC Glucose OUTPATIENT ANTIDIABETIC REGIMEN: * N/A (no prior dx of DM) * A1c = 6.0% 03/11/19 (consistent w/ "pre-diabetes") ASSESSMENT: 03/24 * Patient remains intubated and sedated this AM * High dose IV steroids also continue (Solu-medrol 40mg IV Q 6 hrs) * Last 4 BSGs > 180, radiologic technology program director wishes to treat with SQ * Will resume basal insulin at this time and increase his prandial insulin dose as well. These doses performed well in the past however steroid dose was not as high as it current dosage. 03/23 * BSGs well controlled over last 24 hrs * Patient remains intubated this AM, receiving Fibersource 1.2 tube feeds @ 35cc/hr, still receiving Prednisone (currently 15mg/day) * Will continue current orders at this time PLAN FOR INPATIENT GLYCEMIC CONTROL: * Basal insulin (increase) * Lantus 4 units SQ x 1 * then BID per the following scale * 0 units if BSG less than 140 * 2 units if BSG 140-200 or greater * 4 units if BSG above 200 * Bolus insulin (increase) * NovoLog per scale Q 4 hrs * Goal Range: Low 120 mg/dL - High 150 mg/dL * Correction Factor: 30 mg/dL/unit * Nutritional / Prandial insulin per carb ratio of 1 unit per 10 grams CHO administered in tube feeds * Reassess insulin needs with each step-down in steroid dose PLAN FOR DISCHARGE: * given his A1c, he will not likely require insulin on discharge if acute stressors resolve and steroids are stopped
[2019-03-24] MEDS: FIBERSOURCE HN 1.2 CAL 1000 ML BAG PO SCH (10:57)
[2019-03-24] MEDS: MIDAZOLAM HCL 125 MG/250 ML BAG IV SCH (12:55)
--- NOTE | 2019-03-24 15:36 | Critical Care Progress Note ---
Date of Service March 24, 2019 Assessment & Plan (1) Acute respiratory failure with hypoxia: Impression: 1. Esophageal carcinoma, has not received treatment yet. 2. Acute respiratory failure secondary to aspiration. 3. Multilobar pneumonia with aspiration. 4. Severe COPD, gold level 3, currently intubated. 5. Hypertension. 6. Free water deficit with hypernatremia. Plan: 1. Continue with Unasyn. 2. Daily CPAP trial. 3. Continue systemic steroids. 4. Bronchodilators on regular basis. 5. Titrate Versed down to keep the patient rest -1. 6. DVT prophylaxis. 7. Bronchoscopy was done and dictated separately, large amount of thick secretions was suctioned, and sent for culture. 8. Change hydralazine to as needed, continue with Lopressor 5 mg IV every 6 hours. 9. Continue antipsychotic medications. 10. Hopefully would be reaching the point where the patient can be extubated. 11. Continue tube feeding. 12. Appreciate palliative care input. 13. My goal would be to treat the patient until achieve extubation if possible, then further discussion with the patient in regard of realistic approach of his esophageal cancer, the patient refused apparently adamantly any type of feeding tube, which is part of esophagectomy tube to place a J-tube anyway. 14. Discontinue fentanyl. 15. Obtain records from [facility] regarding his esophageal cancer. 16. May discontinue the A-line. Discussed with the staff in details, critical care time spent with the patient was 60 minutes. Subjective Review of system was not obtainable, patient is intubated and sedated, the patient continued to fail CPAP trial, continues to have significant amount of secretions from the ET tube. Otherwise no events overnight. He tolerated the Lopressor for blood pressure control. No evidence of hypotension reported. Review of Systems Review of Systems: Review of system is not obtainable. Physical Exam Physical Exam: Elderly gentleman, cachectic, intubated, not in any apparent distress, open his eyes but does not follow commands, S1-S2, regular rate and rhythm, not tachycardic, distant rhonchorous bilaterally, abdomen is benign, neurologically difficult to assess, no rash, ET tube without any oral lesion. Results & Data Vital Signs (Past 12 Hours) Vital Signs Temp Pulse Pulse Resp BP BP Pulse Ox 03/24/19 14:27 99 H 21 92 03/24/19 13:00 107 H 26 H 160/89 H 91 03/24/19 12:00 78 18 112/55 L 97 03/24/19 11:15 90 20 100 03/24/19 11:00 97 H 22 145/82 H 100 03/24/19 10:36 96 H 12 141/77 H 91 03/24/19 10:33 89 12 109/57 L 100 03/24/19 10:00 81 20 140/79 98 03/24/19 09:28 100 H 154/76 H 03/24/19 09:00 37.2 C 105 H 18 154/76 H 95 03/24/19 08:00 37.0 C 90 18 140/77 94 03/24/19 07:41 99 H 25 H 93 03/24/19 07:00 36.8 C 83 24 136/78 93 03/24/19 06:01 83 95 03/24/19 06:00 84 132/72 96 03/24/19 05:35 71 18 97 03/24/19 05:01 94 H 95 03/24/19 05:00 98 H 137/78 94 03/24/19 04:54 100 H 152/57 H 03/24/19 04:30 102 H 140/82 94 03/24/19 04:01 96 H 95 03/24/19 04:00 99 H 133/72 94 03/24/19 03:30 98 H 136/75 93 03/24/19 03:15 98 H 23 94 03/24/19 03:00 100 H 140/72 94 03/24/19 02:30 98 H 132/72 92 Laboratory Results Labs were reviewed which showed normal WBC, hematocrit is baseline, BMP is stable.
--- NOTE | 2019-03-24 15:36 | Procedure Note ---
Procedure Note Date of Service March 24, 2019 Note Bronchoscopy was done due to large amount of secretions from the ET tube. Consent was waived as the patient was intubated and no family member to give a consent. The procedure was done emergently as the patient was difficult to wean from the ventilator. The patient was placed on 100% on AC mode prior to the procedure. The patient was already sedated with Versed drip. The patient received total of 10 mL 4% lidocaine throughout the procedure via the ET tube. The bronchoscope passed through the blue adapter, the patient was already monitored in the ICU bed 7 with ICU style of monitoring. Tracheal bronchial tree examined to the [id number] level. The findings as follows: 1. ET tube was 4 cm above the raj. 2. Large amount of thick secretions occluding multiple subsegments in the lower lobe bilaterally. 3. Irritated mucosa also was noted in multiple areas of the right lower lobe. 4. Specimen was sent for culture. 5. No immediate complication, tolerated the procedure very well, no hypoxia, the bronchoscope was removed. 6. Continue with weaning trial. Thank you Coding
[2019-03-24] MEDS: QUETIAPINE FUMARATE 200 MG TAB PO SCH (16:58)
--- NOTE | 2019-03-24 20:14 | Hospitalist Progress Note ---
Date of Service March 24, 2019 Assessment & Plan (1) Cardiac arrest: s/p cardiopulmonary arrest. Code blue called and CPR was initiated and with ACLS medications intubated on vent support sedated with low dose of versed drip will need to hold sedation for now to help with the weaning trial ECHO showed moderate global hypokinesis of LV with EF 30-35% Continue monitor closely in the ICU (2) Acute respiratory failure with hypoxia: Due to aspiration ( after eating chocolate and applesauce) Was on mechanical vent support and extubated on 03/17 On 15 L oxygen with audible breath sound CXR showed progressively worsened diffuse mixed interstitial and alveolar opacities are suggestive of multifocal pneumonia. Completed course of abx with empiric vancomycin, Zosyn, doxycycline on admission and completed 7 days of Zosyn case discussed with muck miner blasting at bedside recommended to transfer to the ICU for close monitor Core safe tube in place Will keep strict NPO for now Refused NG tube placement Not sure if pt understand the risk since he wants to eat will involve ethic to assess pt with decision making Consider Speech eval 03/24 S/P cardiac arrest Re-intubated on Vent support CTA chest showed everal linear nonocclusive filling defects present within segmental and subsegmental branches of the pulmonary arterial tree within the upper lobes suggestive of fibrin stranding related to chronic pulmonary emboli. Extensive bilateral tree-in-bud nodules with mixed ground glass and consolidative opacities Manager Primary on board S/P bronch done today Large amount of thick secretions occluding multiple subsegments in the lower lobe bilaterally. Vent management as per ICU team Oral steroid changed to IV solumedrol 40mg IV q6h Failed CPAP weaning trial today Continue monitor closely Ethic consult pending (3) On mechanically assisted ventilation: Required mechanical ventilation due to increasing hypoxia and hypercapnia S/P extubated on 03/17 and reintubated on 03/20 Managed per ICU team Failed CPAP trial again today Monitor in the ICU (4) Elevated troponin: Troponin peak to 0.976, trending down to 0.73 Might be relating to cardiopulmonary arrest this morning and required CPR Cardiology on board Was starting on heparin drip that was discontinued as well as aspirin due to hx esophageal carcinoma with past GI bleeding ECHO showed moderate global hypokinesis of LV with EF 30-35% IV metoprolol discontinued after received 1 dose, BP dropped and was placed on levophed Will continue monitor (5) Sepsis: Presented with sepsis likely secondary to pneumonia Has been febrile in the last 24 hr starting another course of antibiotic with IV zosyn yesterday Continue IV unasyn Levophed and Vasopressin pressors discontinued WBC trending down to 15 Monitor CBC (6) Anemia: Seems to be an anemia of chronic disease Hemoglobin dropped to 6.7 on 03/10 S/P 2 units PRBC on 03/10 Hemoglobin stable 8.6 today Will monitor hemoglobin (7) Multifocal pneumonia: Mostly due to recurrent aspiration CXR today showed progressively worsened diffuse mixed interstitial and alveolar opacities are suggestive of multifocal pneumonia. Just completed course of abx with empiric vancomycin, Zosyn, doxycycline on admission and completed 7 days of Zosyn from / Steroid changed to IV solumedrol Has been afebrile today Continue IV Unasyn WBC trending down to normal Encephalopathy secondary Sepsis Mental status appears to be back to baseline CT head negative for acute process Intubated and sedated with versed Hypertension BP dropped after received IV metoprolol during hospital course BP improves Pressors discontinued Continue monitor Hypotension Mostly due to sepsis vs dehydration was starting on Levophed and vasopressin BP improved and levophed and vasopressin d/c Continue monitor closely in the ICU Resolved Hypernatremia Na 142 today Increase free water flush Monitor BMP Resolved Esophageal cancer GERD Refused any tube feeding Aspiration precaution Will need to discuss with oncology as prognosis has not been starting on any treatment Oncology consult - Pending Lung Nodule per previous admission:CT showed 9 mm spiculated appearing nodule in the left lower lobe. This is pathologically indeterminant but concerning for neoplasm. Follow up CT chest in 3 month is recommended Schizophrenia Continue usual medications stable Nutrition Will restart on nasogastric tube feeding since pt aspirated today on Ice cream and appleasauce Patient does not want to have any tube feeding placement He has recurrent aspiration and has had multiple speech therapy evaluation and recommendation Will keep strict NPO for now Continue parental feeding DVT prophylaxis on heparin subq will monitor closely due to hx GI bleed Disposition Continue monitor in the ICU Lives in [facility] facility Has no family members and or POA Code Status Full code Disposition Continue monitor in the ICU Subjective Pt was seen and examined Sedated and intubated on vent support Failed weaning trial Physical Exam Physical Exam: General- Vent support Head- atraumatic ENT- Intubated Neck- supple, no JVD Lungs- diminished BS Heart- +tachycardia Abdomen- normal bowel sounds, soft Extremities- no calf tenderness Neuro- sedated Skin- warm & dry Results & Data Vital Signs (Past 12 Hours) Vital Signs Temp Pulse Pulse Resp BP BP Pulse Ox 03/24/19 18:00 115 H 22 132/76 96 03/24/19 17:09 90 22 98 03/24/19 17:00 88 23 136/81 95 03/24/19 16:00 90 23 145/84 H 98 03/24/19 15:13 106 H 154/90 H 03/24/19 15:02 36.9 C 105 H 24 154/90 H 98 03/24/19 14:27 99 H 21 92 03/24/19 14:00 102 H 24 151/89 H 97 03/24/19 13:00 107 H 26 H 160/89 H 91 03/24/19 12:00 78 18 112/55 L 97 03/24/19 11:15 90 20 100 03/24/19 11:00 97 H 22 145/82 H 100 03/24/19 10:36 96 H 12 141/77 H 91 03/24/19 10:33 89 12 109/57 L 100 03/24/19 10:00 81 20 140/79 98 03/24/19 09:28 100 H 154/76 H 03/24/19 09:00 37.2 C 105 H 18 154/76 H 95
[2019-03-24] MEDS: INSULIN GLARGINE SOLOSTAR 100 UNITS/ML 3 ML PEN SC SCH (20:45)
[2019-03-25] MEDS: LEVALBUTEROL HCL 0.63 MG/3 ML NEB NEB SCH ×4 (01:23→19:51)
[2019-03-25] MEDS: METOPROLOL TARTRATE 1 MG/ML VIAL IV SCH ×4 (04:00→21:04)
[2019-03-25] MEDS: INSULIN ASPART 100 UNITS/ML 3 ML PEN SC SCH ×6 (04:00→23:56)
[2019-03-25] MEDS: AMPICILLIN/SULBACTAM SOD 3,000 MG in 0.9 % SODIUM CHLORIDE 100 ML IV SCH ×4 (04:00→22:05)
[2019-03-25 04:52] LABS: Hematocrit (blood only) 26.6 % (42-52); Hemoglobin 8.6 g/dL (14.0-18.0); Mean Corpuscular Hgb Conc 32.3 g/dL (32-36); Mean Corpuscular Volume 82.1 fL (80-100); Mean Platelet Volume 10.4 fL (7.4-10.4); Platelet Count 311 K/uL (130-400); RDW Standard Deviation 57.9 fL (36.4-46.3); Red Blood Count 3.24 M/uL (4.7-6.1); White Blood Count 7.05 K/uL (4.8-10.8)
[2019-03-25 05:12] LABS: BUN Creatinine Ratio 87.8 (10-20); Calcium 7.7 mg/dl (8.5-10.1); Creatinine Clr Calc Pharmacy 134.2 ml/min; Est GFR (African American) 141.5; Potassium 3.6 mmol/L (3.5-5.1)
[2019-03-25] MEDS: MIDAZOLAM HCL 125 MG/250 ML BAG IV SCH (06:06)
[2019-03-25] MEDS: methylPREDNISolone 40 MG in SYRINGE 0 ML IV SCH ×4 (06:07→23:49)
[2019-03-25] MEDS: HEPARIN SOD 5,000 UNIT/0.5 ML VIAL SQ SCH ×3 (06:07→22:06)
--- NOTE | 2019-03-25 07:18 | XRay Report ---
XR chest 1V portable HISTORY: intubation COMPARISON: Chest 03/24/2019. FINDINGS: The endotracheal tube terminates 2.6 cm from the raj. Nasogastric tube terminates in the stomach. Left jugular central venous catheter terminates at the proximal SVC. No pneumothorax. No pl eural effusions. The heart is normal in size. Right greater than left interstitial opacities have sli ghtly improved. This could represent a resolving pneumonitis or edema. IMPRESSION: 1. Satisfactory support line placement. 2. Improvement in the bilateral interstitial opacities. Electronically signed by: Prasanna Crum M.D. 03/25/2019 7:17 AM
[2019-03-25] MEDS: INSULIN GLARGINE SOLOSTAR 100 UNITS/ML 3 ML PEN SC SCH ×2 (07:46→20:59)
[2019-03-25] MEDS: BENZTROPINE MESYLATE 0.5 MG TAB PO SCH ×2 (07:47→21:06)
[2019-03-25] MEDS: FAMOTIDINE 20 MG TAB PO SCH ×2 (07:47→21:05)
[2019-03-25] MEDS: ATORVASTATIN 40 MG TAB NG SCH (07:47)
[2019-03-25] MEDS: VALPROIC ACID SOLN 250 MG/5 ML UDC PO SCH ×2 (07:47→21:06)
[2019-03-25] MEDS: risperiDONE 2 MG TABLET PO SCH ×2 (07:47→21:04)
[2019-03-25] MEDS: MAGNESIUM OXIDE 400 MG TAB PO SCH (07:48)
[2019-03-25] MEDS ORDERED: INSULIN GLARGINE SOLOSTAR 100 UNITS/ML 3 ML PEN SC SCH (08:00)
[2019-03-25] MEDS: FIBERSOURCE HN 1.2 CAL 1000 ML BAG PO SCH (08:23)
[2019-03-25 09:31] LABS: iSTAT Allen Test Pass; iSTAT Arterial Blood Gas HCO3 29 meg/L (19-24); iSTAT Arterial Blood Gas pCO2 37 mmHg (35-46); iSTAT Arterial Blood Gas pH 7.51 (7.35-7.45); iSTAT Carbon Dioxide 30 mEq/l (24-31); iSTAT FiO2 40 %; iSTAT Site R Radial
[2019-03-25] MEDS ORDERED: HydrALAZINE HCL 20 MG/ML VIAL IV PRN (10:40)
--- NOTE | 2019-03-25 10:49 | XRay Report ---
KUB HISTORY: confirm NG placement for feedings COMPARISON: KUB 03/19/2019. FINDINGS: The bowel gas pattern is unremarkable. There are no dilated loops of small bowel to suggest an obstruction. No renal calculi. No ureteral calculi. No pneumoperitoneum or pneumatosis. Moderate well-formed stool within the colon. Nasogastric tube terminates at the expected location of the kevin roesophageal junction. This should be advanced by approximately 10 cm. IMPRESSION: Nasogastric tube terminates at the expected location of the gastroesophageal junction. This should be advanced by approximately 10 cm. Electronically signed by: Prasanna Crum M.D. 03/25/2019 10:47 AM
--- NOTE | 2019-03-25 12:04 | Pharmacy Report ---
Pharmacy Glycemic Short Note 2 - Date of Service March 25, 2019 - Glycemic Short BSG Results (Last 24 hours): 03/24/19 03/24/19 03/24/19 11:51 15:28 20:41 Glucose POC Glucose 139 H 148 H 167 H 03/24/19 03/25/19 03/25/19 23:28 04:28 04:32 Glucose 175 H POC Glucose 155 H 188 H 03/25/19 07:41 Glucose POC Glucose 154 H OUTPATIENT ANTIDIABETIC REGIMEN: * N/A (no prior dx of DM) * A1c = 6.0% 03/11/19 (consistent w/ "pre-diabetes") ASSESSMENT: 03/25 * Glycemic control improved over the last 24 hrs following yesterday's insulin changes * Patient remains intubated and sedated this AM, still receiving same Solu- Medrol dose, still receiving tube feeds at same rate (Fibersource @55cc/hr) * Only 1 BSG above 180 since changes made yesterday - will continue same orders again today 03/24 * Patient remains intubated and sedated this AM * High dose IV steroids also continue (Solu-medrol 40mg IV Q 6 hrs) * Last 4 BSGs > 180, bale opener wishes to treat with SQ * Will resume basal insulin at this time and increase his prandial insulin dose as well. These doses performed well in the past however steroid dose was not as high as it current dosage. 03/23 * BSGs well controlled over last 24 hrs * Patient remains intubated this AM, receiving Fibersource 1.2 tube feeds @ 35cc/hr, still receiving Prednisone (currently 15mg/day) * Will continue current orders at this time PLAN FOR INPATIENT GLYCEMIC CONTROL: * Basal insulin (no change) * Lantus BID per the following scale * 0 units if BSG less than 140 * 2 units if BSG 140-200 or greater * 4 units if BSG above 200 * Bolus insulin (no change) * NovoLog per scale Q 4 hrs * Goal Range: Low 120 mg/dL - High 150 mg/dL * Correction Factor: 30 mg/dL/unit * Nutritional / Prandial insulin per carb ratio of 1 unit per 10 grams CHO administered in tube feeds * Reassess insulin needs with each step-down in steroid dose PLAN FOR DISCHARGE: * given his A1c, he will not likely require insulin on discharge if acute stressors resolve and steroids are stopped
--- NOTE | 2019-03-25 13:17 | Critical Care Progress Note ---
Date of Service March 25, 2019 Assessment & Plan (1) Acute respiratory failure with hypoxia: Impression: 1. Esophageal carcinoma, has not received treatment yet. 2. Acute respiratory failure secondary to aspiration. 3. Multilobar pneumonia with aspiration. 4. Severe COPD, gold level 3, currently intubated. 5. Hypertension. 6. Free water deficit with hypernatremia. Plan: 1. Continue with Unasyn. 2. The patient tolerated CPAP trial, and succeeded with extubation. Did require BiPAP after extubation. 3. Continue systemic steroids. 4. Bronchodilators on regular basis. 5. Discontinue Versed. 6. DVT prophylaxis. 7. Repeat chest x-ray did not show any escalation of infiltrate. 8. Change hydralazine dose to 10 mg IV every 6 hours as needed and continue with Lopressor. 9. Continue antipsychotic medications. 10. Use of BiPAP for ventilatory support. 11. Change OG tube to NG tube, and hold tube feeding for today. 12. Palliative care consult since the patient been extubated, to meet with the patient and his caregiver in the past, to discuss goals of care, and realistic options of treatment as the patient continued to refuse feeding tube in the past. And according to the caregiver in the past, he did not want to be on life support as he stated that to her. 13. I will start Reglan empirically, although the patient on antipsychotic medication which could alter his QTC. We will continue to monitor. 14. Discontinue fentanyl. 15. Awaiting records from [facility] about his esophageal cancer. 16. Discontinue A-line. Discussed with the staff in details, critical care time spent with the patient was 60 minutes. Subjective The patient was tolerating the CPAP for several hours, he was opening his eyes and following simple commands but does not appear to be lucid enough to give me a good review of system. Review of Systems Review of Systems: Review of system was not obtainable as the patient was int ubated and opening his eyes but does not follow commands properly. Physical Exam Physical Exam: Vital signs remained stable, O2 saturation was 97%, S1-S2, tachycardia occasionally, blood pressure is slightly elevated, cachexia, rhonchi bilaterally, abdomen is benign, neurologically difficult to assess. Results & Data Vital Signs (Past 12 Hours) Vital Signs Temp Pulse Pulse Resp BP BP Pulse Ox 03/25/19 10:19 98 H 93 03/25/19 10:14 115 H 24 96 03/25/19 10:03 121 H 151/96 H 03/25/19 10:00 102 H 34 H 151/96 H 97 03/25/19 09:00 116 H 25 H 156/89 H 95 03/25/19 08:00 36.4 C L 80 110 H 26 H 156/89 H 95 03/25/19 07:22 103 H 103 H 24 98 03/25/19 07:00 99 H 17 165/86 H 97 03/25/19 06:00 84 144/75 H 97 03/25/19 05:15 70 18 98 03/25/19 05:00 62 118/67 98 03/25/19 04:00 82 111/65 03/25/19 03:00 80 131/80 98 03/25/19 02:00 73 111/63 95 03/25/19 01:23 68 18 97 Laboratory Results Labs were reviewed showing stable CBC, BMP, and acceptable ABG. Diagnostic Findings Chest x-ray showed similar bilateral interstitial changes consistent with his previous aspiration.
[2019-03-25] MEDS: METOPROLOL TARTRATE 1 MG/ML VIAL IV PRN (13:31)
--- NOTE | 2019-03-25 14:17 | Hospitalist Progress Note ---
Date of Service March 25, 2019 Assessment & Plan (1) Acute respiratory failure with hypoxia: persistent 2/2 apiration pneumonia/pneumonitis. ARDS earlier this admission. (2) Anemia: likely multifactorial related to chronic disease and multiple hospi talizations including for GI blood loss at one point. (3) Esophageal cancer: Kevin's with transition to adenocarcinoma. Considering surgery but may need to be restaged. Will discuss with [facility] surgeon with whom he has established care to discuss further. (4) Aspiration pneumonia: continue abx and supportive care. Extubated today in the ICU and on BIPAP. 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 On a screening endoscopy for Kevin's esophagus in Nov 2018 with [facility], he was seen to have developed dysplasia which developed into adenocarcinoma. He was referred to [facility] to consider surgery for this. On November 20, 2018 he underwent an upper endoscopic ultrasound at [facility]. Endoscopy findings included a nodular, ulcerated lesion within Kevin's esophagus concerning for possible malignancy with biopsy taken. There were esophageal mucosal changes classified as Kevin's stage C7-M10 per [place] criteria. There was a 6 cm hiatal hernia and a normal examined duodenum. Ultrasound findings included a hypoechoic mass in the lower third of the esophagus. The lesion was partially circumferential involving one third of the lumen circumference. The endosonographic borders were well-defined. The mass measured up to 8 mm in thickness. There was sonographic evidence suggesting invasion into the submucosa (layer 3). There was no sign of significant endoscopic abnormality in the liver, pancreas or gallbladder. This was staged T1 SM NXMX by endosonographic criteria at that time. Surgical pathology taken 30 cm into esophagus reveals invasive adenocarcinoma, well to moderately differentiated in a background of intestinal metaplasia. Her-2/Ronaldo expression was negative. Although he was scheduled for endoscopic resection in January, he was admitted to [facility] on He was admitted to [facility] 01/22 through 01/26 for a GI bleed and was given 3 units of blood. This hospital stay was complicated by metabolic encephalopathy as well as possible pneumonia and he was treated with Zosyn. He was transferred from the ICU to [facility] for further management because of his known esophageal malignancy, and was discharged on 01/27. Esop hageal resection was rescheduled for 03/12. He was subsequently admitted to [facility] on 02/11 for aspiration pneumonia. He was initially treated with Zosyn which was de- escalated to ceftriaxone and azithromycin. A 9 mm spiculated nodule in the left lower lobe was noted. This was not pathologically confirmed but concerning for neoplasm. Speech pathology examined him and recommended slippery minced moist diet with aspiration precautions. He was discharged on 02/17 back to [facility]. He was readmitted on 03/08 (current admission) for sepsis and multifocal pneumonia. Lower esophageal adenocarcinoma (HER-2/new negative) appears to be involving the submucosa, no local regional lymphadenopathy noted on PET/CT scan done November 2018. No evidence of distal metastatic disease noted at that time. Long- standing history of smoking present. He was scheduled for endoscopic treatment of the lower esophageal carcinoma but then he was admitted to the hospital with an upper GI bleed. Recent CT scan of the chest shows a right lower lobe nodule which could be a primary lung cancer or metastatic disease. Early PET/CT scan did not show any metabolic active lung lesions. Scheduled to undergo endoscopic mucosal resection by Dr. Morejon at [facility] gastroenterology. On bipap since extubated, unable to speak/communicate with me today. Appears fatuged and cannot speak well on the BIPAP. Review of Systems Review of Systems: Unobtainable due to cognitive status Physical Exam Physical Exam: CONSTITUTIONAL: thin, frail, vitals as above, generally well- appearing EYES: normal conjuctivae, no scleral icterus ENT: BIPAP in place. RESPIRATORY: clear to auscultation bilaterally, no crackles, rales or wheezes, normal respiratory effort CARDIOVASCULAR: regular rate and rhythm, S1 and 2 heard without murmurs, gallops or rubs, no JVD, no peripheral edema GASTROINTESTINAL: normal bowel sounds, soft, nontender, nondistended. MUSCULOSKELETAL: generalized weakness SKIN: warm and dry NEUROLOGIC: limited exam 2/2 difficulty speaking/communicating on BIPAP. He is following instructions, but is unable to verbalize works at this time with BIPAP mask on. Results & Data Vital Signs (Past 12 Hours) Vital Signs Temp Pulse Pulse Resp BP BP Pulse Ox 03/25/19 13:31 129 H 171/141 H 03/25/19 13:00 125 H 27 H 171/141 H 89 L 03/25/19 12:00 36.6 C 112 H 29 H 153/102 H 92 03/25/19 11:00 112 H 31 H 141/96 H 87 L 03/25/19 10:19 98 H 93 03/25/19 10:14 115 H 24 96 03/25/19 10:03 121 H 151/96 H 03/25/19 10:00 102 H 34 H 151/96 H 97 03/25/19 09:00 116 H 25 H 156/89 H 95 03/25/19 08:00 36.4 C L 80 110 H 26 H 156/89 H 95 03/25/19 07:22 103 H 103 H 24 98 03/25/19 07:00 99 H 17 165/86 H 97 03/25/19 06:00 84 144/75 H 97 03/25/19 05:15 70 18 98 03/25/19 05:00 62 118/67 98 03/25/19 04:00 82 111/65 03/25/19 03:00 80 131/80 98 Laboratory Results Short CBC 03/25/19 Range/Units 04:32 WBC 7.05 (4.8-10.8) K/uL Hgb 8.6 L (14.0-18.0) g/dL Hct 26.6 L (42-52) % Plt Count 311 (130-400) K/uL BMP 03/25/19 04:32 Sodium 140 Potassium 3.6 Chloride 105 Carbon Dioxide 31 BUN 34 H Creatinine 0.38 L Glucose 175 H Calcium 7.7 L
--- NOTE | 2019-03-25 14:58 | XRay Report ---
XR KUB/Abdomen 1 view CLINICAL HISTORY: confirm NG, replaced tube position COMPARISON STUDY: 03/25/2019 FINDINGS: Nasogastric tube has been advanced and is now within the gastric fundus. IMPRESSION: Nasogastric tube is now within the gastric fundus. The above report was generated using voice recognition software. It may contain grammatical, syntax or spelling errors. Electronically signed by: Ron Friend M.D. 03/25/2019 2:57 PM
[2019-03-25] MEDS: QUETIAPINE FUMARATE 200 MG TAB PO SCH (16:14)
[2019-03-25] MEDS: METOCLOPRAMIDE HCL 10 MG TABLET PO SCH ×2 (16:14→21:05)
--- NOTE | 2019-03-25 16:48 | XRay Report ---
XR chest 1V portable CLINICAL HISTORY: resp failure COMPARISON STUDY: 03/25/2019 FINDINGS: The endotracheal tube has been removed. A nasogastric tube is visualized within the stomach . The left internal jugular central venous catheter has been removed. The cardiac and mediastinal con tours remain stable. Bilateral predominantly interstitial opacities remain similar. Trace effusions a re suggested.[ IMPRESSION: 1. No change in the bilateral pulmonary interstitial opacities 2. Interval removal of the endotracheal tube and left internal jugular central venous catheter Electronically signed by: Frankie Vela M.D. 03/25/2019 4:46 PM
--- NOTE | 2019-03-25 18:01 | Critical Care Progress Note ---
Date of Service March 25, 2019 Assessment & Plan (1) Acute respiratory failure with hypoxia: Impression: 1. Esophageal carcinoma, has not received treatment yet. 2. Acute respiratory failure secondary to aspiration. 3. Multilobar pneumonia with aspiration. 4. Severe COPD, gold level 3, currently intubated. 5. Hypertension. 6. Free water deficit with hypernatremia. Plan: 1. Continue with Unasyn. 2. Daily CPAP trial. 3. Continue systemic steroids. 4. Bronchodilators on regular basis. 5. Titrate Versed down to keep the patient rest -1. 6. DVT prophylaxis. 7. Bronchoscopy was done and dictated separately, large amount of thick secretions was suctioned, and sent for culture. 8. Change hydralazine to as needed, continue with Lopressor 5 mg IV every 6 hours. 9. Continue antipsychotic medications. 10. Hopefully would be reaching the point where the patient can be extubated. 11. Continue tube feeding. 12. Appreciate palliative care input. 13. My goal would be to treat the patient until achieve extubation if possible, then further discussion with the patient in regard of realistic approach of his esophageal cancer, the patient refused apparently adamantly any type of feeding tube, which is part of esophagectomy tube to place a J-tube anyway. 14. Discontinue fentanyl. 15. Obtain records from [facility] regarding his esophageal cancer. 16. May discontinue the A-line. Discussed with the staff in details, critical care time spent with the patient was 60 minutes. Results & Data Vital Signs (Past 12 Hours) Vital Signs Temp Pulse Pulse Resp BP BP Pulse Ox 03/25/19 17:00 116 H 24 137/78 88 L 03/25/19 16:01 106 H 28 H 149/100 H 96 03/25/19 16:00 37.1 C 98 H 109 H 34 H 156/95 H 97 03/25/19 15:58 101 H 26 H 95 03/25/19 15:37 110 H 24 94 03/25/19 15:27 112 H 188/116 H 03/25/19 14:00 121 H 35 H 159/94 H 85 L 03/25/19 13:31 129 H 171/141 H 03/25/19 13:00 125 H 27 H 171/141 H 89 L 03/25/19 12:00 36.6 C 112 H 29 H 153/102 H 92 03/25/19 11:00 112 H 31 H 141/96 H 87 L 03/25/19 10:19 98 H 93 03/25/19 10:14 115 H 24 96 03/25/19 10:03 121 H 151/96 H 03/25/19 10:00 102 H 34 H 151/96 H 97 03/25/19 09:00 116 H 25 H 156/89 H 95 03/25/19 08:00 36.4 C L 80 110 H 26 H 156/89 H 95 03/25/19 07:22 103 H 103 H 24 98 03/25/19 07:00 99 H 17 165/86 H 97
[2019-03-26] MEDS: LEVALBUTEROL HCL 0.63 MG/3 ML NEB NEB SCH ×2 (01:52→07:20)
[2019-03-26] MEDS: AMPICILLIN/SULBACTAM SOD 3,000 MG in 0.9 % SODIUM CHLORIDE 100 ML IV SCH ×2 (03:37→10:30)
[2019-03-26] MEDS: METOPROLOL TARTRATE 1 MG/ML VIAL IV SCH ×2 (03:37→10:29)
[2019-03-26] MEDS: INSULIN ASPART 100 UNITS/ML 3 ML PEN SC SCH ×2 (03:45→08:06)
[2019-03-26] MEDS: methylPREDNISolone 40 MG in SYRINGE 0 ML IV SCH (05:33)
[2019-03-26] MEDS: METOCLOPRAMIDE HCL 10 MG TABLET PO SCH (08:03)
[2019-03-26] MEDS: HEPARIN SOD 5,000 UNIT/0.5 ML VIAL SQ SCH (08:03)
[2019-03-26] MEDS: INSULIN GLARGINE SOLOSTAR 100 UNITS/ML 3 ML PEN SC SCH (08:06)
--- NOTE | 2019-03-26 09:55 | Pharmacy Report ---
Pharmacy Glycemic Short Note 2 - Date of Service March 26, 2019 - Glycemic Short BSG Results (Last 24 hours): 03/25/19 03/25/19 03/25/19 11:52 15:44 20:19 POC Glucose 131 H 118 H 103 H 03/25/19 03/26/19 03/26/19 23:50 03:44 08:05 POC Glucose 96 105 H 114 H OUTPATIENT ANTIDIABETIC REGIMEN: * N/A (no prior dx of DM) * A1c = 6.0% 03/11/19 (consistent w/ "pre-diabetes") ASSESSMENT: 03/26 * New events in last 24 hrs: patient has been extubated, continuous tube feeds have been stopped * BSGs did drop quickly when the tube feeds were discontinued, in fact he has required no insulin now that these are stopped * Solu-medrol continues at the same dosage * Will continue current orders for next 24 hrs as it is unclear if there will be attempts to resume tube feedings today or not. Lantus is dosed per scale so he will likely not receive any doses unless nutrition resumes 03/25 * Glycemic control improved over the last 24 hrs following yesterday's insulin changes * Patient remains intubated and sedated this AM, still receiving same Solu- Medrol dose, still receiving tube feeds at same rate (Fibersource @55cc/hr) * Only 1 BSG above 180 since changes made yesterday - will continue same orders again today 03/24 * Patient remains intubated and sedated this AM * High dose IV steroids also continue (Solu-medrol 40mg IV Q 6 hrs) * Last 4 BSGs > 180, spot cleaner wishes to treat with SQ * Will resume basal insulin at this time and increase his prandial insulin dose as well. These doses performed well in the past however steroid dose was not as high as it current dosage. 03/23 * BSGs well controlled over last 24 hrs * Patient remains intubated this AM, receiving Fibersource 1.2 tube feeds @ 35cc/hr, still receiving Prednisone (currently 15mg/day) * Will continue current orders at this time PLAN FOR INPATIENT GLYCEMIC CONTROL: * Basal insulin (no change) * Lantus BID per the following scale * 0 units if BSG less than 140 * 2 units if BSG 140-200 or greater * 4 units if BSG above 200 * Bolus insulin (no change) * NovoLog per scale Q 4 hrs * Goal Range: Low 120 mg/dL - High 150 mg/dL * Correction Factor: 30 mg/dL/unit * Nutritional / Prandial insulin per carb ratio of 1 unit per 10 grams CHO administered in tube feeds * Reassess insulin needs with each step-down in steroid dose PLAN FOR DISCHARGE: * given his A1c, he will not likely require insulin on discharge if acute stressors resolve and steroids are stopped
[2019-03-26] MEDS: risperiDONE 2 MG TABLET PO SCH (10:29)
[2019-03-26] MEDS: VALPROIC ACID SOLN 250 MG/5 ML UDC PO SCH (10:29)
[2019-03-26] MEDS: ATORVASTATIN 40 MG TAB NG SCH (10:29)
[2019-03-26] MEDS: FAMOTIDINE 20 MG TAB PO SCH (10:29)
[2019-03-26] MEDS: BENZTROPINE MESYLATE 0.5 MG TAB PO SCH (10:29)
[2019-03-26] MEDS: MAGNESIUM OXIDE 400 MG TAB PO SCH (10:31)
[2019-03-26] MEDS ORDERED: RAPID SEQUENCE INDUCTION BAG ONE (10:38)
[2019-03-26] MEDS ORDERED: PROPOFOL IV EMULSION 10 MG/ML 100 ML VIAL IV ONE (10:41)
[2019-03-26] MEDS ORDERED: PROPOFOL 1,000 MG/100 ML VIAL IV SCH (11:15)
--- NOTE | 2019-03-26 11:19 | Discharge Summary ---
Date of Service March 26, 2019 Admission HPI Per Admitting Provider 73-year-old male with history of COPD, smoker, hypertension, recently diagnosed esophageal cancer, upper GI bleed, schizophrenia, presenting with confusion. Patient was recently admitted to [facility] for sepsis secondary to pneumonia. He was discharged on February 17, 2019. Today patient was brought back to the emergency room for shortness of breath and cough. At the, patient was febrile at 40 F and hypoxic at 80%. Lactic acid and procalcitonin elevated. He was started on Zosyn, IV fluids. On exam, the patient is sitting seen up in bed, not in distress but is tachypneic, with some effort when speaking. States he started to feel unwell since last night, associated with dry cough. States breathing is improved compared to when he first came in. Denies other symptoms Primary Care Provider: Personal Care, [facility] Admission Exam Per Admitting Provider General- oriented x 2, not in distress, speaks in sentences with mild effort mild accessory muscle use Head- atraumatic Eyes- PERRL, EOMI, anicteric ENT- oropharynx clear Neck- supple, no JVD, no adenopathy, no thyromegaly; carotids +2/2, no bruits appreciated Lungs-mild rhonchi bilaterally, no wheezing Heart- normal rate, regular rhythm; no murmur, no gallop, no rub appreciated Abdomen- normal bowel sounds, nondistended, soft, nontender, no masses or hepatosplenomegaly Extremities- no pretibial edema, no calf tenderness; peripheral pulses intact Neuro- alert, oriented x 2; CN 2-12 grossly intact; motor 5/5 bilaterally;sensation 100% on all extremities; no other gross focal neurologic deficits Skin- warm & dry Principal Diagnosis Acute respiratory failure Esophageal adenocarcinoma Discharge Data Allergies Allergy/AdvReac Type Severity Reaction Status Date / Time buspirone Allergy Unknown Verified 03/08/19 08:32 clonazepam Allergy Unknown unknown Verified 03/08/19 08:32 clozapine Allergy Unknown Verified 03/08/19 08:32 Consultations 03/08/19 09:37 ED Decision to Admit Stat 03/08/19 21:42 Consult Donor Services Manager Routine 03/19/19 15:00 Consult Oncology Routine 03/20/19 16:37 Consult Cardiology Routine 03/26/19 10:05 Burn CD for patient Stat Ordered Studies 03/08/19 10:04 CT chest wo con Stat CT head/brain wo con Stat 03/16/19 08:56 US point of care ultrasound Routine 03/20/19 05:49 CT angio chest PE protocol Stat 03/20/19 06:10 US point of care ultrasound Routine 03/20/19 12:35 US venous doppler LE BI Routine 03/20/19 18:39 US point of care ultrasound Routine Hospital Course (1) Acute respiratory failure with hypoxia: (2) Aspiration pneumonia: (3) Esophageal cancer: (4) HTN (hypertension): (5) Paranoid schizophrenia: (6) Tobacco abuse: (7) Kevin esophagus: (8) Anemia: Current Inpatient Medications Acetaminophen (Tylenol) 650 mg PO Q4H PRN PRN Reason: Pain or fever Stop: 04/18/19 18:28 Last Admin: 03/23/19 00:19 Dose: 650 mg Documented by: Atorvastatin Calcium (Lipitor) 40 mg NG QAM [facility] Stop: 04/19/19 16:29 Last Admin: 03/26/19 10:29 Dose: 40 mg Documented by: Benztropine Mesylate (Cogentin) 0.5 mg PO BID [facility] Stop: 04/07/19 20:59 Last Admin: 03/26/19 10:29 Dose: 0.5 mg Documented by: Dextrose (Dextrose 50%) 25 - 50 ml IV UD PRN; Protocol PRN Reason: Hypoglycemia Protocol Stop: 04/13/19 17:14 Docusate Sodium (Colace) 100 mg GT BID PRN PRN Reason: CONSTIPATION Stop: 04/11/19 10:59 Enteral Nutritional Formula (Fibersource Hn 1.2 Sergei Liquid) 1,000 ml PO UD [facility]; Protocol Stop: 04/18/19 16:29 Last Admin: 03/25/19 08:23 Dose: 1,000 ml Documented by: Famotidine (Pepcid) 20 mg PO BID [facility] Stop: 04/18/19 20:59 Last Admin: 03/26/19 10:29 Dose: 20 mg Documented by: Glucagon (Glucagen) 1 mg IM UD PRN; Protocol PRN Reason: Hypoglycemia Protocol Stop: 04/13/19 17:14 Glucose (Glucose 40%) 15 - 30 gm PO UD PRN; Protocol PRN Reason: Hypoglycemia Protocol Stop: 04/13/19 17:14 Glucose (Dex4 Glucose) 4 - 8 tabs PO UD PRN; Protocol PRN Reason: Hypoglycemia Protocol Stop: 04/13/19 17:14 Heparin Sodium (Beef Lung) (Heparin Sod 10 Unit/Ml Flush) 5 ml FLUSH PRN PRN PRN Reason: Flush Stop: 04/20/19 23:15 Heparin Sodium (Porcine) (Heparin Sodium (Porcine)) 5,000 units SQ Q8H [facility] Stop: 04/20/19 06:59 Last Admin: 03/26/19 08:03 Dose: 5,000 units Documented by: Hydralazine HCl (Hydralazine Hcl) 10 mg IV Q6H PRN PRN Reason: SBP above 180 Stop: 04/22/19 12:33 Sodium Chloride (Nss) 250 mls @ 15 mls/hr IV .[id number] PRN PRN Reason: For Transfusion Stop: 04/20/19 13:08 Ampicillin Sodium/Sulbactam Sodium 3,000 mg/ Sodium Chloride 108 mls @ 216 mls/hr IV Q6H [facility] Stop: 03/29/19 09:59 Last Infusion: 03/26/19 11:09 Dose: Infused Documented by: Methylprednisolone 40 mg/ (Syringe) 0.64 mls @ 1.5 mls/min IV Q6 [facility] Stop: 04/22/19 11:59 Last Admin: 03/26/19 05:33 Dose: 1.5 mls/min Documented by: Propofol (Diprivan) 1,000 mg in 100 mls @ 1.569 mls/hr IV .Q24H [facility]; Protocol Stop: 03/29/19 11:14 Last Admin: 03/26/19 11:11 Dose: 15 mcg/kg/min, 4.7 mls/hr Documented by: Insulin Aspart (Novolog Flexpen) 0 units SC Q4 [facility] Stop: 04/19/19 00:00 Last Admin: 03/26/19 08:06 Dose: Not Given Documented by: Insulin Glargine (Lantus Solostar Pen) 0 units SC Q12H [facility]; Protocol Stop: 04/23/19 19:59 Last Admin: 03/26/19 08:06 Dose: Not Given Documented by: Levalbuterol HCl (Xopenex 0.63 Mg/3 Ml Neb) 0.63 mg NEB Q6R [facility] Stop: 04/07/19 19:59 Last Admin: 03/26/19 07:20 Dose: 0.63 mg Documented by: Magnesium Oxide (Mag-Ox) 400 mg PO QAM [facility] Stop: 04/08/19 08:59 Last Admin: 03/26/19 10:31 Dose: 400 mg Documented by: Metoclopramide HCl (Reglan) 5 mg PO ACHS [facility] Stop: 04/24/19 16:29 Last Admin: 03/26/19 08:03 Dose: 5 mg Documented by: Metoprolol Tartrate (Lopressor) 2.5 mg IV Q6 PRN PRN Reason: Hypertension Stop: 04/22/19 00:00 Last Admin: 03/25/19 13:31 Dose: 2.5 mg Documented by: Metoprolol Tartrate (Lopressor) 5 mg IV Q6H [facility] Stop: 04/22/19 21:59 Last Admin: 03/26/19 10:29 Dose: 5 mg Documented by: Miscellaneous (Carbohydrates For Hypoglycemia) 15 - 30 gm PO UD PRN PRN Reason: Hypoglycemia Treatment Stop: 04/13/19 17:14 Miscellaneous Information (Consult Glycemic Management Pharmacy) 1 ea N/A UD PRN PRN Reason: Consult Stop: 04/08/19 16:42 Polyethylene Glycol (Miralax Powder Packet) 17 gm PO DAILY PRN PRN Reason: Constipation Stop: 04/12/19 08:11 Last Admin: 03/15/19 08:04 Dose: 17 gm Documented by: Quetiapine Fumarate (Seroquel) 400 mg PO DAILY@1700 [facility] Stop: 04/08/19 16:59 Last Admin: 03/25/19 16:14 Dose: 400 mg Documented by: Risperidone (Risperdal) 2 mg PO BID [facility] Stop: 04/07/19 11:36 Last Admin: 03/26/19 10:29 Dose: 2 mg Documented by: Valproic Acid (Valproic Acid) 250 mg PO BID [facility] Stop: 04/09/19 22:59 Last Admin: 03/26/19 10:29 Dose: 250 mg Documented by: HOSPITAL COURSE: 73-year-old man with history significant for 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 On a screening endoscopy for Kevin's esophagus in Nov 2018 with [facility] in [place], [place], he was seen to have developed dysplasia which developed into adenocarcinoma. He was referred to [facility] to consider surgery for this. On November 20, 2018 he underwent an upper endoscopic ultrasound at [facility]. Endoscopy findings included a nodular, ulcerated lesion within Kevin's esophagus concerning for possible malignancy with biopsy taken. There were esophageal mucosal changes classified as Kevin's stage C7-M10 per Forsan criteria. There was a 6 cm hiatal hernia and a normal examined duodenum. Ultrasound findings included a hypoechoic mass in the lower third of the esophagus. The lesion was partially circumferential involving one third of the lumen circumference. The endosonographic borders were well-defined. The mass measured up to 8 mm in thickness. There was sonographic evidence suggesting invasion into the submucosa (layer 3). There was no sign of significant endoscopic abnormality in the liver, pancreas or gallbladder. This was staged T1 SM NXMX by endosonographic criteria at that time. Surgical pathology taken 30 cm into esophagus reveals invasive adenocarcinoma, well to moderately differentiated in a background of intestinal metaplasia. Her-2/Ronaldo expression was negative. Although he was scheduled for endoscopic resection in January, he was admitted to [facility] on 01/22 through 01/26 for a GI bleed and was given 3 units of blood. This hospital stay was complicated by metabolic encephalopathy as well as possible pneumonia and he was treated with Zosyn. He remained in the ICU and was transferred to [facility] for further management because of his known esophageal malignancy, and was discharged on 01/27. Esophageal resection was rescheduled for 03/12. He was subsequently admitted to [facility] on 02/11 for aspiration pneumonia. He was initially treated with Zosyn which was de- escalated to ceftriaxone and azithromycin. A 9 mm spiculated nodule in the left lower lobe was noted. This was not pathologically confirmed but concerning for neoplasm. Speech pathology examined him and recommended slippery minced moist diet with aspiration precautions. He was discharged on 02/17 back to [facility]. He was readmitted on 03/08 (current admission) for sepsis and multifocal pneumonia. He was again admitted to the ICU for sepsis with multifocal pneumonia. He failed a trial of BiPAP therapy for 48 hours and subsequently intubated in the setting of ARDS for several more days. He recovered from this and was transferred to the floor where he attempted to eat soft moist foods and aspirated becoming reintubated again. He was extubated again on 03/25 to BiPAP and required BiPAP therapy overnight. On 03/26 he was still weak and looking poor. The case was discussed with Dr. Morejon from [facility] in [place]. He recommended restaging of his esophageal adenocarcinoma at this point prior to any further surgical consideration. The case was discussed with the local [facility] behavioral instructor who preferred the restaging, which includes an endoscopic ultrasound and a PET/CT, be performed at this tertiary care center as more resources are available and consideration could be made at that time to possibly proceed with the surgery. The case was discussed with the [facility] title insurance agent and the palliative care nurse. To better serve the patient he was transferred to [facility] ICU for continued treatment of his respiratory failure and aspiration pneumonia, and when improved, consideration of restaging his esophageal adenocarcinoma and reviewing current available treatment options. The patient was transferred in critical condition intubated via [facility]. Close primary care follow-up is recommended. Of note, I discussed with the accepting title insurance agent that the patient was discharged from his current assisted living facility and is without a home at this point. He also has no available family members or other medical center manager that has been identified to help guide his care if he is unavailable to speak for himself. Total Time Total Time Spent Total Time Spent (In Minutes): 60 Total Time Includes: Examination of the Patient, Discharge Planning, Medication Reconciliation and Communication With Other Providers Discharge Plan Discharge Items Patient Disposition: Transfer Acute Care Hospital Reason For Visit: SEPSIS Discharge Diagnosis: Acute respiratory failure 2/2 aspiration pneumonia Esophageal adenocarcinoma Condition: Critical Discharge Goals: Improve disease control, Improve function and Therapeutic inter vention Activity: Per 'Additional Instructions' section Activity Comment: per receiving facility Non-emergency contact: Primary Care Provider Call non-emergency contact if: you have any medication questions, your symptoms worsen, your pain is not controlled and you have a fever Follow-up/Referrals: [facility] [Primary Care Provider] - Diet: See below Diet Comment: per reassessment by receiving facility speech path services. Addtl Provider Instructions: You are being transferred to [facility] for continued care for your current respiratory illness, as well as consideration for re-staging of your esophageal cancer. It was a pleasure taking care of you! Please call if you have any questions or problems. You can reach a [facility] hospitalist on duty at [facility] 24 hours a day by calling [phone]. Take care of yourself. Leta Head, DO [facility] Hospitalist Prescriptions: Continued omeprazole 40 mg Capsule,Delayed Release(Dr/Ec) 40 mg PO QAM RF: 0 acetaminophen [Acetaminophen Extra Strength] 500 mg Tablet 1,000 mg PO Q8H PRN (Reason: Pain) RF: 0 Dairy Relief 9,000 unit Tablet 9,000 unit PO QID RF: 0 trazodone 100 mg Tablet 100 mg PO HS RF: 0 ranitidine HCl 150 mg Tablet 150 mg PO BID RF: 0 calcium carbonate [Calcium Antacid] 200 mg calcium (500 mg) Tablet,Chewable 200 - 400 mg PO DAILY RF: 0 metoprolol succinate 25 mg Tablet Extended Release 24 Hr 25 mg PO QAM RF: 0 albuterol sulfate [Ventolin HFA] 90 mcg/actuation Hfa Aerosol Inhaler 2 puff INHALATION QID PRN (Reason: sob) RF: 0 quetiapine 400 mg Tablet 400 mg PO QPM RF: 0 guaifenesin [Mucinex] 600 mg Tablet Extended Release 12hr 600 mg PO BID PRN (Reason: Congestion) RF: 0 polyethylene glycol 3350 [Miralax] 17 gram powder in packet 17 gm PO DAILY PRN (Reason: Constipation) RF: 0 Preparation H 0.25-14-74.9 % Ointment 1 applic IN TID PRN (Reason: Hemorrhoids) RF: 0 ipratropium bromide 0.02 % Solution 0.5 mg NEB Q6R PRN (Reason: shortness of breath or wheezing) Qty: 75 RF: 1 potassium chloride 10 mEq tablet,ER particles/crystals 10 meq PO BID RF: 0 diphenhydramine HCl [Banophen] 25 mg Capsule 25 mg PO HS PRN (Reason: Tremor(S)) RF: 0 alum-mag hydroxide-simeth [Rulox] 200-200-20 mg/5 mL Suspension 10 ml PO Q4H PRN (Reason: Diarrhea) RF: 0 Reguloid Powder 1 tsp PO DAILY PRN (Reason: Indigestion) RF: 0 benztropine 0.5 mg Tablet 0.5 mg PO BID RF: 0 divalproex 250 mg Tablet,Delayed Release (Dr/Ec) 250 mg PO BID RF: 0 risperidone 2 mg Tablet 2 mg PO BID RF: 0 Stand-Alone Forms: [facility] Discharge Orders: Discharge Order (Routine); Ordered 03/26/19 Ordered By: Leta Head Admission Data Admit Date/Time: 03/08/19 10:34 Attending Provider: Leta Head Admit Provider: Alfa Aguilar Primary Care Provider: [employer], [facility] Other Providers: Jamie Em ; Alfa Aguilar ; Indio Peters ; Alie Limon ; Jamaal Covington Service: Intensive Care Unit
--- NOTE | 2019-03-26 11:40 | Critical Care Progress Note ---
Date of Service March 26, 2019 Assessment & Plan (1) Aspiration pneumonia: Impression: 1. Esophageal carcinoma, stage Ia a year ago, has not received any treatment, patient declined surgery back then. He does not want feeding tube at that time. 2. Acute respiratory failure secondary to recurrent aspiration, poor cough reflex, cannot maintain his airways off the ventilator. 3. Multilobar pneumonia secondary to aspiration. 4. COPD, severe, gold level 3, unable to be liberated from the ventilator due to mucoid impaction. 5. Hypertension. 6. Hyponatremia, resolved. Plan: 1. Continue with Unasyn for pansensitive Klebsiella after aspiration. Day 4 of antibiotic. 2. The patient would not tolerate BiPAP any further, discussed with the patient, patient would be intubated. 3. Discussed with Dr. Head, appreciate her assistance, discussed with Dr. vallecillo from GI, he felt that the patient needs to be restaged for his esophageal cancer since his last staging was over a year ago. 4. Dr. Head made the arrangement, appreciate her help. 5. Continue bronchodilators. 6. propofol for sedation. 7. Bronchoscopy was done after intubation, again showed large amount of mucoid impaction mainly in the subsegments of the right lower lobe, right middle lobe, lingula. 8. Continue Lopressor for blood pressure control. Hydralazine as as needed. 9. Continue his antipsychotic medications including Risperdal, valproic acid and benzodiazepine. 10. The patient started on Reglan for gastric motility. However he has not started on tube feeding since the NG tube was placed in the past 12 hours. 11. Palliative care consult appreciated, discussion with his only caregiver who is not the power of bingo cashier but she has been following him for the past 10 years and her name is Trinity araujo and her phone number is [phone]. She is only contact, and the patient does not have family . 12. The patient is arranged to be transferred to the [facility], appreciate acceptance. Case discussed with the staff on rounds in details, with Dr. Head, with palliative care, appreciate all inputs. Critical care time spent with the patient excluding procedure times was 35 minutes. Subjective The patient continued to be requiring BiPAP, desaturating very quickly after taking him off the BiPAP. Spoken to the patient, he is alert answering questions but does not seem to have an handgrip on his diagnosis or prognosis. No events overnight. Remains on the BiPAP constantly. Discussed with the patient, he is in agreement with intubation. Review of Systems Review of Systems: Review of system was difficult to obtain as the patient was somewhat confused, however he denies any pain, no shortness of breath while he is on the BiPAP, he had very poor cough reflex, no nausea. Physical Exam Physical Exam: Vital signs are stable, S1-S2, blood pressure is slightly elevated, O2 saturation 97% on BiPAP. Goes down to 70% of the BiPAP. Trachea is midline heart examination S1-S2 regular rate and rhythm, distant breath sounds bilaterally with rhonchi mainly at the bases, abdomen is benign, cachexia, no edema, neurologically difficult to assess, psychiatrically the patient has baseline history of schizophrenia. Results & Data Vital Signs (Past 12 Hours) Vital Signs Temp Pulse Pulse Resp BP BP Pulse Ox 03/26/19 11:05 18 03/26/19 10:29 89 163/88 H 03/26/19 07:20 101 H 101 H 21 96 03/26/19 06:00 70 12 159/77 H 97 03/26/19 04:00 36.5 C 87 24 151/82 H 97 03/26/19 03:37 96 H 160/92 H 03/26/19 02:00 101 H 22 148/88 H 98 03/26/19 01:55 98 H 22 95 03/26/19 01:53 96 H 97 03/26/19 00:00 36.6 C 83 18 137/84 99 Laboratory Results Labs were reviewed showing stable glucose, the rest of his laboratory from yesterday were also stable. Diagnostic Findings Chest x-ray showed bilateral interstitial changes likely consistent with his history of aspiration. Hyperinflated lungs. NG tube is below the diaphragm.
--- NOTE | 2019-03-26 11:44 | Procedure Note ---
Procedure Note Date of Service March 26, 2019 Note Procedure is intubation, the patient verbally consented to the procedure, the need for intubation is respiratory failure that the patient could not come off the BiPAP at all. And the patient is going for restaging at tertiary care center which will require intubation anyway. Patient agreed verbally, there is no family member to consent at this point, the procedure was done emergently. The patient was placed in supine position, and using Ambu bag, the patient was ventilated to O2 sat above the 90% for 2 minutes, the patient was induced with 100 mg of propofol and 50 mg of rocuronium. Using #3 MAC blade, #8 ET tube, vocal cord visualized, no secretions at the vocal cord, ET tube was placed to 22 cm by the lips, secured with tube hunter, end-tidal CO2 was yellow with color change, vent settings were placed at 16/4 50/50%/PEEP of 5. ET tube was confirmed during bronchoscopy, no need for chest x-ray. Tolerated the procedure very well, no immediate complication. Coding
--- NOTE | 2019-03-26 11:46 | Procedure Note ---
Procedure Note Date of Service March 26, 2019 Note Bronchoscopy was done at the bedside due to acute respiratory failure, requiring intubation, patient is known from previous bronchoscopies to have mucoid impaction, the patient was already sedated with propofol drip, intubated with #8 ET tube, the patient monitored throughout the entire procedure in the ICU in bed #8, procedure was done emergently, using Olympus 180 bronchoscope, using blue adapter, the bronchoscope passed through the #8 ET tube, and the following were noted: 1. The ET tube was 1 cm above the raj and adjusted to 3 cm above the raj at 22 cm by the lips. 2. Large amount of thick secretions white in color occluding most of the subsegments of the right lower lobe, lingula and right middle lobe. All suctioned to clear. 3. Minimal lidocaine was obtained. 4. No specimen was obtained, previous specimen grew Klebsiella pneumonia on the previous bronchoscope. 5. All the airways appear to be patent from RB 1 to RB 10 and LB 1 to LV 10. 6. The bronchoscope was retrieved entirely and the patient tolerated the procedure very well, no evidence of hypoxia, no immediate complication. Thank you for the assistance of nursing staff and respiratory therapy. Coding
[2019-03-26] MEDS ORDERED: ROCURONIUM BROMIDE 10 MG/ML 5 ML VIAL IV ONE (11:49)
== END 2019-03-26 11:50 | disposition short-term general hospital (02) | DRG 870 ==
LOC: ED 07:57 → SUATTDRO 10:34 → 2E 10:34 → 1E 20:24 → 2W 03-18 11:02 → 1E 03-19 14:31

== ENCOUNTER 2019-09-06 19:02 | Inpatient (IN) ==
[~2019-09-06 19:02] MED LIST changes: -ACET-1311 PO; -ATRINS INH; -AUG0.05O4 TOP; -BENZ0.5T2 PO; -CALC500C PO; -CHLO1TAB15 PO; -DIPH25TA33 PO; -DIVA250T PO; -GFNSR600 PO; -LISI-729 PO; -LOPE-5 PO; -LTRCR30 EX; -LVQ750 PO; +MAGNESIUM SULFATE 1GM / D5W BAG IV ONE; -MAGNPOW EX; -NXM/40 PO; -POTA10CA28 PO; -PSYLPOW6 PO; -QUET400T PO; -RANI150T85 PO; -RISP2TAB3 PO; +SODIUM BICARB 8.4% INJ 50 MEQ/50 ML SYR IV ONE; +SODIUM CHLORIDE 0.9% 1000 ML BAG IV ONE; -TPRSR/25 PO; -TRAZ50TA35 PO; -XPNINS INH; -ZFR4 PO; -[UNRECOGNIZED DRUG - CODE] PO; -[UNRECOGNIZED DRUG - OTHER] PO
[2019-09-06] MEDS ORDERED: fentaNYL citrate 100 MCG/2 ML VIAL IV PRN (19:25)
[2019-09-06] MEDS ORDERED: ONDANSETRON INJ 2 MG/ML 2 ML VIAL IV STA (19:25)
[2019-09-06] MEDS ORDERED: SODIUM CHLORIDE 0.9% 1000ML 1,000 ML IV SCH (19:30)
[2019-09-06 19:42] LABS: Basophils # (auto) 0.01 K/uL (0-0.2); Basophils % (auto) 0.1 %; Hematocrit (blood only) 35.7 % (42-52); Immature Granulocytes # (auto) 0.14 K/uL (0.00-0.02); Immature Granulocytes % (auto) 1.4 %; Lymphocytes # (auto) 0.69 K/uL (1.2-3.4); Lymphocytes % (auto) 6.8 %; Mean Corpuscular Hemoglobin 30.2 pg (25-34); Mean Corpuscular Hgb Conc 36.4 g/dL (32-36); Mean Corpuscular Volume 82.8 fL (80-100); Mean Platelet Volume 9.5 fL (7.4-10.4); Monocytes # (auto) 0.92 K/uL (0.11-0.59); Monocytes % (auto) 9.1 %; Neutrophils # (auto) 8.38 K/uL (1.4-6.5); Neutrophils % (auto) 82.6 %; Platelet Count 361 K/uL (130-400); RDW Coefficient of Variation 14.8 % (11.5-14.5); RDW Standard Deviation 45.1 fL (36.4-46.3); Red Blood Count 4.31 M/uL (4.7-6.1); White Blood Count 10.14 K/uL (4.8-10.8)
[2019-09-06 19:47] LABS: Base Excess VBG -4.6 mEq/L; HCO3 VBG 21 mmol/L; PCO2 VBG 40 mmHg (38-50); PO2 VBG 31 mmHg; pH VBG 7.34 (7.36-7.41)
[2019-09-06 19:48] LABS: Oxygen Saturation VBG < 60.0 %
[2019-09-06 19:51] LABS: iSTAT Creatinine 3.9 mg/dl (0.6-1.3); iSTAT Hemoglobin 13.6 g/dl (14.0-18.0); iSTAT Ionized Calcium 0.6 mmol/l (1.12-1.32); iSTAT Potassium 2.3 mEq/L (3.3-5.0)
[2019-09-06 19:52] LABS: INR 1.5 (0.9-1.1); Partial Thromboplastin Time 25.8 Seconds (21.0-31.0); Prothrombin Time 15.2 Seconds (9.0-12.0)
--- NOTE | 2019-09-06 20:03 | Emergency Department Note ---
Entered by Raphael Ribera acting as a scribe for Khoi Atkinson DO History of Present Illness General Chief complaint: Abdominal Pain Stated complaint: abd pain Time Seen by Provider: 09/06/19 19:18 Source: patient Limitations: no limitations History of Present Illness Onset (ago): hour(s) 4 Location: abdomen Pain Consistency: + constant Quality: + constant Associated symptoms: + shortness of breath; no chest pain Treatments prior to arrival: other (Percocet, fentanyl, saline) The patient is a 73 year old male who presents to the Emergency Room with complaints of constant abdominal pain starting 4 hours ago. The patient states he was getting into bed and laid on his left side when he started having pain in his upper left abdomen near his feeding tube. The patient states he is having trouble breathing right now. He states he does not have any breathing problems. He notes he is at [facility] for his feeding tube. He notes he has cancer in his throat and stomach. The patient denies having any chest pain. I took the command call on the patient. The patient received a Percocet 4 hours ago. I called in fentanyl and saline. Home Medications Home Medications Medication Instructions Recorded Confirmed Type diphenhydramine HCl [Banophen] 25 mg PO HS PRN 01/06/19 09/06/19 History risperidone 2 mg PO AMHS 02/11/19 09/06/19 History Prilosec 40 mg FEEDING TUBE QAM 09/06/19 09/06/19 History acetaminophen 325 mg PO Q4H PRN 09/06/19 09/06/19 History budesonide-formoterol 2 puff INHALATION BID 09/06/19 09/06/19 History metoprolol tartrate 25 mg PO BID 09/06/19 09/06/19 History oxycodone-acetaminophen [Percocet] 1 tab PO Q6H PRN 09/06/19 09/06/19 History quetiapine 100 mg PO HS 09/06/19 09/06/19 History arformoterol [Brovana] 15 mcg INHALATION BID 30 Days #120 09/07/19 Rx ml calcium carbonate [Tums] 750 mg PO BID 30 Days #225 tab 09/07/19 Rx heparin, porcine (PF) 5,000 unit SUBCUT Q8 15 Days #22.5 09/07/19 Rx ml Allergies Allergy/AdvReac Type Severity Reaction Status Date / Time buspirone Allergy Unknown ON Verified 09/06/19 19:59 ARISTACARE LIST clonazepam Allergy Unknown ON Verified 09/06/19 19:59 ARISTACARE LIST clozapine Allergy Unknown Unknown Verified 09/06/19 19:59 promethazine Allergy Unknown ON Verified 09/06/19 19:59 ARISTACARE LIST Past Med/Surg History Medical History Difficult intubation Esophageal cancer (Acute) History of esophageal cancer (Chronic) 11/20/18 EGD: Nodular ulcerated lesion. EUS: Mass lower third esophagus. Biopsies positive for adenocarcinoma. Paranoid schizophrenia (Chronic) COPD (chronic obstructive pulmonary disease) (Chronic) HTN (hypertension) (Chronic) GERD (gastroesophageal reflux disease) (Chronic) Tobacco abuse (Chronic) Kevin esophagus (Chronic) GI bleed Sepsis Surgical History History of esophagogastroduodenoscopy (EGD) (Chronic) History of skin graft (Chronic) as child History of bowel resection (Chronic) "for diverticulitis " in 2009 Family History Mother Stroke Thyroid disorder Father Myocardial infarction Other Heart disease Social History Preferred Language: Syrian Communication Ability: Unable Visual Impairment: No Limitations Bus Boy Required: No Beliefs That Will Affect Care: Holiness Holiness Beliefs: Caodaism Current Living Situation: Personal Care Facility Current Living Situation Comment: [facility] Feels Safe at Home: Yes Smoking Status: Former smoker Tobacco Type: cigarettes ; Cigarettes Per Day: 20 ; Second Hand Exposure: No ; Hx Alcohol Use: No Hx Substance Use: No Review of Systems See HPI for pertinent positives & negatives. and A total of 10 systems reviewed and were otherwise negative Physical Exam Vital Signs Vital Signs - 24 hr 09/06/19 19:19 09/06/19 19:22 09/06/19 19:24 Temperature 36.9 C Temperature Source Oral Sepsis Recent Fever Within 48 Hours No Sepsis New/Unexplained Change in Mental Status No Sepsis Action Taken by Nursing No Action Required Pulse Rate 132 H 134 H 135 H Pulse Rate from SpO2 Sensor 132 H 123 H Respiratory Rate 37 H 36 H 36 H Blood Pressure 107/69 86/61 L Blood Pressure Mean 81 69 Pulse Oximetry 92 94 95 Oxygen Delivery Method Nasal Cannula Oxygen Flow Rate 6 6 6 09/06/19 19:25 09/06/19 19:30 09/06/19 19:31 Temperature Temperature Source Sepsis Recent Fever Within 48 Hours Sepsis New/Unexplained Change in Mental Status Sepsis Action Taken by Nursing Pulse Rate 132 H 132 H Pulse Rate from SpO2 Sensor 131 H 131 H Respiratory Rate 39 H 40 H Blood Pressure 113/89 Blood Pressure Mean 97 Pulse Oximetry 90 92 Oxygen Delivery Method Nasal Cannula Oxygen Flow Rate 6 6 6 09/06/19 19:45 09/06/19 20:09 09/06/19 20:20 Temperature Temperature Source Sepsis Recent Fever Within 48 Hours Sepsis New/Unexplained Change in Mental Status Sepsis Action Taken by Nursing Pulse Rate 134 H 146 H 152 H Pulse Rate from SpO2 Sensor 134 H Respiratory Rate 34 H 40 H Blood Pressure 108/86 103/76 Blood Pressure Mean 93 85 Pulse Oximetry 94 Oxygen Delivery Method Oxygen Flow Rate 6 09/06/19 20:21 09/06/19 20:30 09/06/19 20:37 Temperature Temperature Source Sepsis Recent Fever Within 48 Hours Sepsis New/Unexplained Change in Mental Status Sepsis Action Taken by Nursing Pulse Rate 155 H 153 H 154 H Pulse Rate from SpO2 Sensor 152 H 155 H 170 H Respiratory Rate 29 H 41 H 24 Blood Pressure 88/63 L Blood Pressure Mean 71 91 Pulse Oximetry 89 L 91 Oxygen Delivery Method Nasal Cannula Nasal Cannula Nasal Cannula Oxygen Flow Rate 6 6 6 09/06/19 20:38 09/06/19 20:45 09/06/19 21:00 Temperature Temperature Source Sepsis Recent Fever Within 48 Hours Sepsis New/Unexplained Change in Mental Status Sepsis Action Taken by Nursing Pulse Rate 155 H 151 H 141 H Pulse Rate from SpO2 Sensor 154 H 151 H 141 H Respiratory Rate 38 H 40 H 36 H Blood Pressure 95/76 L 91/76 L Blood Pressure Mean 82 81 Pulse Oximetry 92 92 89 L Oxygen Delivery Method Nasal Cannula Nasal Cannula Oxygen Flow Rate 6 6 09/06/19 21:01 09/06/19 21:15 09/06/19 21:30 Temperature Temperature Source Sepsis Recent Fever Within 48 Hours Sepsis New/Unexplained Change in Mental Status Sepsis Action Taken by Nursing Pulse Rate 141 H 138 H 145 H Pulse Rate from SpO2 Sensor 141 H 138 H 154 H Respiratory Rate 43 H 34 H 45 H Blood Pressure 98/68 L 101/85 Blood Pressure Mean 93 78 90 Pulse Oximetry 90 91 87 L Oxygen Delivery Method Oxygen Flow Rate 09/06/19 21:31 Temperature Temperature Source Sepsis Recent Fever Within 48 Hours Sepsis New/Unexplained Change in Mental Status Sepsis Action Taken by Nursing Pulse Rate 148 H Pulse Rate from SpO2 Sensor 148 H Respiratory Rate 37 H Blood Pressure Blood Pressure Mean Pulse Oximetry 91 Oxygen Delivery Method Oxygen Flow Rate GENERAL: The patient is awake and alert. He is very anxious appearing and appears to be in significant pain. EYES: The conjunctivae are clear. The pupils are round and reactive. EARS, NOSE, MOUTH AND THROAT: The nose is without any evidence of any deformity. Mucous membranes are moist.Tongue is midline NECK: The neck is nontender and supple. RESPIRATORY: Shallow respirations were noted. Significant tachypnea and conversational dyspnea was noted. CARDIOVASCULAR: Tachycardic rate with regular rhythm was noted. No definite murmur was noted. GASTROINTESTINAL: The abdomen is soft and nondistended. There is diffuse tenderness to palpation but no guarding or rigidity. There is palpable tenderness around the feeding tube site but no drainage or erythema. MUSCULOSKELETAL/EXTREMITIES: There is no evidence of gross deformity. Full range of motion is noted in the hips and shoulders. SKIN: There is no obvious evidence of any rash. There are no petechiae, pallor or cyanosis noted. NEUROLOGIC: Patient is awake alert and oriented x3. Procedures Central Line Placement Left Femoral: Time Out Performed: Yes Patient Placed on Monitor/Pulse Ox: Yes MD Prep: mask, gown and gloves Central Line Prep: Chlorhexidine scrub Local Anesthetic: lidocaine 1% Amount of anesthesia used (mL): 5 Ultrasound Used for Placement: No Central Line Lumen Inserted: triple Post Procedure: sutured in place and sterile dressing applied Patient Tolerated Procedure: no complications Complications: none Course 1920: The patient was evaluated in room A2, and a complete history and physical examination were performed. 2124: I discussed the patient's case with Dr. Polly Monsivais Hospitalist. He will evaluate the patient for further management. 2299: I put a central line in the patient. Administered Medications Discontinued Medications Acetaminophen (Tylenol) 650 mg PO Q4H PRN PRN Reason: Fever Or Pain Stop: 10/07/19 09:55 Last Admin: 09/07/19 10:35 Dose: 650 mg Documented by: [id number] Arformoterol Tartrate (Brovana Neb) 15 mcg INH BID [facility] Stop: 10/07/19 10:29 Last Admin: 09/07/19 10:57 Dose: 15 mcg Documented by: [id number] Budesonide (Pulmicort Respules) 0.25 mg INH BID [facility] Stop: 10/07/19 10:29 Last Admin: 09/07/19 10:57 Dose: 0.25 mg Documented by: [id number] Budesonide/Formoterol Fumarate (Symbicort 160mcg/4.5mcg) 2 puffs INH BID [facility] Stop: 10/07/19 08:59 Last Admin: 09/07/19 13:18 Dose: Not Given Documented by: [id number] Calcium Carbonate (Tums) 750 mg PO BID [facility] Stop: 10/07/19 08:59 Last Admin: 09/07/19 13:17 Dose: Not Given Documented by: [id number] Fentanyl Citrate (Fentanyl Citrate) 25 mcg IV Q15M PRN PRN Reason: Pain Stop: 09/20/19 19:24 Last Admin: 09/06/19 19:34 Dose: 25 mcg Documented by: [id number] Fentanyl Citrate (Fentanyl Citrate) Confirm Administered Dose 100 mcg .ROUTE .STK-MED ONE Stop: 09/07/19 00:58 Last Increment: 09/07/19 01:04 Dose: 50 mcg Documented by: [id number] Fentanyl Citrate (Fentanyl Drip) Confirm Administered Dose 1,250 mcg IV .STK-MED ONE Stop: 09/07/19 01:12 Last Admin: 09/07/19 05:00 Dose: Not Given Documented by: [id number] Fentanyl Citrate (Fentanyl Citrate) 50 mcg IV NOW STA Stop: 09/07/19 02:40 Last Admin: 09/07/19 04:56 Dose: Not Given Documented by: [id number] Heparin Sodium (Porcine) (Heparin Sodium (Porcine)) 5,000 units SQ Q8 [facility] Stop: 10/07/19 00:59 Last Admin: 09/07/19 05:11 Dose: 5,000 units Documented by: [id number] Cosigned by: [id number] Admin: 09/07/19 02:32 Dose: 5,000 units Documented by: [id number] Cosigned by: [id number] Hydrocortisone Sodium Succinate (Solu-Cortef) 100 mg IV ONE ONE Stop: 09/07/19 00:46 Last Admin: 09/07/19 02:24 Dose: Not Given Documented by: [id number] Sodium Chloride (Nss 1000ml) 1,000 mls @ 999 mls/hr IV .Q1H1M [facility] Stop: 09/06/19 20:30 Last Infusion: 09/06/19 20:35 Dose: 0 mls/hr Documented by: [id number] Admin: 09/06/19 19:32 Dose: 999 mls/hr Documented by: [id number] Sodium Chloride (Nss 1000ml) 1,000 mls @ 999 mls/hr IV .Q1H1M ONE Stop: 09/06/19 21:39 Last Infusion: 09/06/19 22:07 Dose: 0 mls/hr Documented by: [id number] Admin: 09/06/19 20:54 Dose: 999 mls/hr Documented by: [id number] Piperacillin Sod/Tazobactam Sod (Zosyn) 4.5 gm in 120 mls @ 240 mls/hr IV NOW ONE Stop: 09/06/19 21:08 Last Infusion: 09/06/19 22:45 Dose: 0 mls/hr Documented by: [id number] Admin: 09/06/19 22:06 Dose: 240 mls/hr Documented by: [id number] Levofloxacin/Dextrose (Levaquin/D5w) 750 mg in 150 mls @ 100 mls/hr IV NOW STA Stop: 09/06/19 22:08 Last Infusion: 09/07/19 00:07 Dose: 0 mls/hr Documented by: [id number] Admin: 09/06/19 22:13 Dose: 100 mls/hr Documented by: [id number] Potassium Chloride (K Donald / Wtr) 10 meq in 100 mls @ 100 mls/hr IV Q1H [facility] Stop: 09/06/19 23:29 Last Infusion: 09/07/19 01:06 Dose: 0 mls/hr Documented by: [id number] Admin: 09/07/19 00:06 Dose: 100 mls/hr Documented by: [id number] Infusion: 09/06/19 23:25 Dose: 0 mls/hr Documented by: [id number] Admin: 09/06/19 22:21 Dose: 100 mls/hr Documented by: [id number] Magnesium Sulfate/Dextrose (Magnesium Sulfate / D5w) 1 gm in 100 mls @ 100 mls/hr IV Q1H [facility] Stop: 09/06/19 23:29 Last Infusion: 09/07/19 01:10 Dose: 0 mls/hr Documented by: [id number] Admin: 09/07/19 00:06 Dose: 100 mls/hr Documented by: [id number] Infusion: 09/06/19 23:26 Dose: 0 mls/hr Documented by: [id number] Admin: 09/06/19 22:06 Dose: 100 mls/hr Documented by: [id number] Calcium Gluconate 1,000 mg/ (Sodium Chloride) 60 mls @ 240 mls/hr IV NOW STA Stop: 09/06/19 21:40 Last Infusion: 09/06/19 22:07 Dose: 0 mls/hr Documented by: [id number] Admin: 09/06/19 21:44 Dose: 240 mls/hr Documented by: [id number] Norepinephrine Bitartrate 8 mg (/ Dextrose) 508 mls @ 11.09 mls/hr IV .Q24H [facility]; Protocol Stop: 10/06/19 22:59 Last Titration: 09/07/19 13:19 Dose: 0 mcg/kg/min, 0 mls/hr Documented by: [id number] Titration: 09/07/19 11:11 Dose: 0.06 mcg/kg/min, 11.1 mls/hr Documented by: [id number] Titration: 09/07/19 10:04 Dose: 0.06 mcg/kg/min, 11.1 mls/hr Documented by: [id number] Titration: 09/07/19 08:59 Dose: 0 mcg/kg/min, 0 mls/hr Documented by: [id number] Titration: 09/07/19 07:51 Dose: 0.06 mcg/kg/min, 11.1 mls/hr Documented by: [id number] Titration: 09/07/19 07:30 Dose: 0.05 mcg/kg/min, 9.2 mls/hr Documented by: [id number] Titration: 09/07/19 07:06 Dose: 0 mcg/kg/min, 0 mls/hr Documented by: [id number] Cosigned by: [id number] Titration: 09/07/19 03:00 Dose: 0 mcg/kg/min, 0 mls/hr Documented by: [id number] Admin: 09/06/19 23:35 Dose: 0.05 mcg/kg/min, 9.2 mls/hr Documented by: [id number] Cosigned by: [id number] Magnesium Sulfate/Dextrose (Magnesium Sulfate / D5w) 1 gm in 100 mls @ 100 mls/hr IV Q1H [facility] Stop: 09/07/19 01:29 Last Infusion: 09/07/19 03:19 Dose: 0 mls/hr Documented by: [id number] Admin: 09/07/19 02:19 Dose: 100 mls/hr Documented by: [id number] Infusion: 09/07/19 01:00 Dose: 100 mls/hr Documented by: [id number] Admin: 09/06/19 23:34 Dose: 100 mls/hr Documented by: [id number] Potassium Chloride (K Donald / Wtr) 10 meq in 100 mls @ 100 mls/hr IV Q1H [facility] Stop: 09/07/19 02:29 Last Infusion: 09/07/19 03:35 Dose: 0 mls/hr Documented by: [id number] Admin: 09/07/19 02:31 Dose: 100 mls/hr Documented by: [id number] Infusion: 09/07/19 02:30 Dose: 100 mls/hr Documented by: [id number] Admin: 09/07/19 02:18 Dose: 100 mls/hr Documented by: [id number] Infusion: 09/07/19 01:00 Dose: 100 mls/hr Documented by: [id number] Admin: 09/06/19 23:34 Dose: 100 mls/hr Documented by: [id number] Piperacillin Sod/Tazobactam (Sod 3.375 gm/ Dextrose) 115 mls @ 28.75 mls/hr IV Q12H [facility]; Protocol Stop: 09/14/19 05:59 Last Infusion: 09/07/19 11:11 Dose: 0 mls/hr Documented by: [id number] Admin: 09/07/19 06:23 Dose: 28.8 mls/hr Documented by: [id number] Vancomycin HCl 1,000 mg/ (Sodium Chloride) 270 mls @ 125 mls/hr IV ONE ONE; Protocol Stop: 09/07/19 02:54 Last Infusion: 10/28/19 05:00 Dose: 0 mls/hr Documented by: [id number] Admin: 09/07/19 02:31 Dose: 125 mls/hr Documented by: [id number] Potassium Chloride/Sodium Chloride (Normal Saline W/20 Meq Kcl) 20 meq in 1,000 mls @ 125 mls/hr IV .Q8H [facility] Stop: 10/07/19 00:44 Last Infusion: 09/07/19 08:59 Dose: 0 mls/hr Documented by: [id number] Admin: 09/07/19 03:00 Dose: 125 mls/hr Documented by: [id number] Sodium Chloride (Nss 1000ml) 2,000 mls @ 999 mls/hr IV .Q2H1M ONE Stop: 09/07/19 02:31 Last Infusion: 09/07/19 11:11 Dose: 0 mls/hr Documented by: [id number] Infusion: 09/07/19 01:30 Dose: 0 mls/hr Documented by: [id number] Admin: 09/07/19 00:30 Dose: 999 mls/hr Documented by: [id number] Vasopressin 20 units/ Sodium (Chloride) 101 mls @ 0 mls/hr IV .Q0M [facility] Stop: 10/07/19 00:32 Last Infusion: 09/07/19 11:11 Dose: 0 unit/min, 0 mls/hr Documented by: [id number] Infusion: 09/07/19 07:06 Dose: 0 unit/min, 0 mls/hr Documented by: [id number] Cosigned by: [id number] Infusion: 09/07/19 06:30 Dose: 0 unit/min, 0 mls/hr Documented by: [id number] Admin: 09/07/19 00:45 Dose: 0.04 unit/min, 12.1 mls/hr Documented by: [id number] Cosigned by: [id number] Fentanyl Citrate (Fentanyl Drip) 1,250 mcg in 250 mls @ 20 mls/hr IV .[id number] [facility]; Protocol Stop: 09/21/19 01:18 Last Titration: 09/07/19 13:19 Dose: 0 mcg/hr, 0 mls/hr Documented by: [id number] Titration: 09/07/19 11:11 Dose: 100 mcg/hr, 20 mls/hr Documented by: [id number] Titration: 09/07/19 07:06 Dose: 100 mcg/hr, 20 mls/hr Documented by: [id number] Cosigned by: [id number] Titration: 09/07/19 06:30 Dose: 100 mcg/hr, 20 mls/hr Documented by: [id number] Titration: 09/07/19 03:15 Dose: 75 mcg/hr, 15 mls/hr Documented by: [id number] Titration: 09/07/19 02:15 Dose: 50 mcg/hr, 10 mls/hr Documented by: [id number] Admin: 09/07/19 01:15 Dose: 25 mcg/hr, 5 mls/hr Documented by: [id number] Cosigned by: [id number] Pantoprazole Sodium 40 mg/ (Syringe) 10 mls @ 5 mls/min IV BID@0900,2100 [facility] Stop: 10/07/19 08:59 Last Admin: 09/07/19 10:30 Dose: 5 mls/min Documented by: [id number] Pantoprazole Sodium 40 mg/ (Syringe) 10 mls @ 5 mls/min IV ONE ONE Stop: 09/07/19 01:31 Last Admin: 09/07/19 02:43 Dose: 5 mls/min Documented by: [id number] Calcium Chloride 1,000 mg/ (Sodium Chloride) 60 mls @ 240 mls/hr IV ONE ONE Stop: 09/07/19 01:59 Last Infusion: 09/07/19 03:00 Dose: 0 mls/hr Documented by: [id number] Admin: 09/07/19 02:30 Dose: 240 mls/hr Documented by: [id number] Propofol (Diprivan) 1,000 mg in 100 mls @ 2.946 mls/hr IV .Q24H [facility]; Protocol Stop: 09/10/19 02:48 Last Titration: 09/07/19 11:11 Dose: 0 mcg/kg/min, 0 mls/hr Documented by: [id number] Titration: 09/07/19 07:06 Dose: 10 mcg/kg/min, 2.9 mls/hr Documented by: [id number] Titration: 09/07/19 04:00 Dose: 10 mcg/kg/min, 2.9 mls/hr Documented by: [id number] Admin: 09/07/19 03:00 Dose: 5 mcg/kg/min, 1.5 mls/hr Documented by: [id number] Cosigned by: [id number] Potassium Chloride (K Donald / Wtr) 20 meq in 100 mls @ 100 mls/hr IV ONE ONE Stop: 09/07/19 04:44 Last Infusion: 09/07/19 04:50 Dose: 0 mls/hr Documented by: [id number] Admin: 09/07/19 03:46 Dose: 100 mls/hr Documented by: [id number] Potassium Chloride (K Donald / Wtr) 20 meq in 100 mls @ 50 mls/hr IV Q2H [facility] Stop: 09/07/19 10:29 Last Infusion: 09/07/19 10:29 Dose: 0 mls/hr Documented by: [id number] Admin: 09/07/19 07:52 Dose: 50 mls/hr Documented by: [id number] Infusion: 09/07/19 07:52 Dose: 50 mls/hr Documented by: [id number] Admin: 09/07/19 06:46 Dose: 50 mls/hr Documented by: [id number] Calcium Gluconate 1,000 mg/ (Sodium Chloride) 60 mls @ 240 mls/hr IV ONE ONE Stop: 09/07/19 06:44 Last Infusion: 09/07/19 07:55 Dose: 0 mls/hr Documented by: [id number] Admin: 09/07/19 06:46 Dose: 240 mls/hr Documented by: [id number] Magnesium Sulfate/Dextrose (Magnesium Sulfate / D5w) 1 gm in 100 mls @ 100 mls/hr IV Q1H [facility] Stop: 09/07/19 08:29 Last Infusion: 09/07/19 11:11 Dose: 0 mls/hr Documented by: [id number] Admin: 09/07/19 07:52 Dose: 100 mls/hr Documented by: [id number] Infusion: 09/07/19 07:46 Dose: 100 mls/hr Documented by: [id number] Admin: 09/07/19 06:46 Dose: 100 mls/hr Documented by: [id number] Dextrose/Sodium Chloride (D5w And 1/2nss) 1,000 mls @ 125 mls/hr IV .Q8H [facility] Stop: 10/07/19 08:29 Last Infusion: 09/07/19 13:19 Dose: 0 mls/hr Documented by: [id number] Infusion: 09/07/19 11:11 Dose: 125 mls/hr Documented by: [id number] Admin: 09/07/19 08:56 Dose: 125 mls/hr Documented by: [id number] Magnesium Sulfate/Dextrose (Magnesium Sulfate / D5w) 1 gm in 100 mls @ 100 mls/hr IV Q1H [facility] Stop: 09/07/19 10:59 Last Admin: 09/07/19 13:19 Dose: Not Given Documented by: [id number] Admin: 09/07/19 13:18 Dose: Not Given Documented by: [id number] Sodium Chloride (Nss) 500 mls @ 999 mls/hr IV .Q31M [facility] Stop: 09/07/19 10:45 Last Infusion: 09/07/19 10:29 Dose: 0 mls/hr Documented by: [id number] Admin: 09/07/19 10:11 Dose: 999 mls/hr Documented by: [id number] Calcium Gluconate 2,000 mg/ (Sodium Chloride) 70 mls @ 240 mls/hr IV NOW STA Stop: 09/07/19 12:31 Last Admin: 09/07/19 13:17 Dose: Not Given Documented by: [id number] Influenza Virus Vaccine (Fluzone High-Dose Pf) 0.5 ml IM .ONCE ONE Stop: 09/07/19 08:01 Last Admin: 09/07/19 08:51 Dose: Not Given Documented by: [id number] Linezolid (Zyvox) 600 mg IV ONE ONE; Protocol Stop: 09/06/19 20:42 Last Admin: 09/07/19 08:44 Dose: Not Given Documented by: [id number] Metoprolol Tartrate (Lopressor) 25 mg PO BID [facility] Stop: 10/07/19 08:59 Last Admin: 09/07/19 11:35 Dose: Not Given Documented by: [id number] Midazolam HCl (Versed) Confirm Administered Dose 2 mg .ROUTE .STK-MED ONE Stop: 09/07/19 01:11 Last Increment: 09/07/19 02:42 Dose: 1 mg Documented by: [id number] Increment: 09/07/19 01:30 Dose: 1 mg Documented by: [id number] Midazolam HCl (Versed) 2 mg IV NOW STA Stop: 09/07/19 02:41 Last Admin: 09/07/19 05:09 Dose: Not Given Documented by: [id number] Ondansetron HCl (Zofran) 4 mg IV NOW STA Stop: 09/06/19 19:26 Last Admin: 09/06/19 19:32 Dose: 4 mg Documented by: [id number] Propofol (Diprivan) Confirm Administered Dose 1,000 mg IV .STK-MED ONE Stop: 09/07/19 01:46 Last Admin: 09/07/19 04:54 Dose: Not Given Documented by: [id number] Sodium Bicarbonate (Sodium Bicarbonate 8.4%) 50 meq IV NOW STA Stop: 09/07/19 06:55 Last Admin: 09/07/19 01:00 Dose: 50 meq Documented by: [id number] Medical Decision Making Differential Diagnosis Differential diagnoses includes but is not limited to gastritis, peptic ulcer disease, GERD, gallbladder disease, pancreatitis, small bowel obstruction, acute coronary syndrome, pericarditis, ischemic bowel, irritable bowel disease, irritable bowel syndrome, appendicitis, diverticulitis, malignancy, hernia, urinary tract infection, torsion, perforation, trauma, infectious. Medical Records Attestation: I reviewed the patient's medical records. Home Medications Current Medication List: was personally reviewed by me Laboratory Data Attestation: I reviewed the patient's lab results. Result diagrams: 09/07/19 05:02 09/07/19 11:20 Lab Results 09/06/19 09/06/19 09/06/19 Range/Units 19:25 19:25 19:25 WBC 10.14 (4.8-10.8) K/uL RBC 4.31 L (4.7-6.1) M/uL Hgb 13.0 L (14.0-18.0) g/dL POC Hgb (14.0-18.0) g/dl Hct 35.7 L (42-52) % POC Hct (42-52) % MCV 82.8 (80-100) fL MCH 30.2 (25-34) pg MCHC 36.4 H (32-36) g/dL RDW Std Deviation 45.1 (36.4-46.3) fL RDW Coeff of Migel 14.8 H (11.5-14.5) % Plt Count 361 (130-400) K/uL MPV 9.5 (7.4-10.4) fL Immature Gran % (Auto) 1.4 % Neut % (Auto) 82.6 % Lymph % (Auto) 6.8 % [place] % (Auto) 9.1 % Eos % (Auto) 0.0 % Baso % (Auto) 0.1 % Immature Gran # (Auto) 0.14 H (0.00-0.02) K/uL Neut # (Auto) 8.38 H (1.4-6.5) K/uL Lymph # (Auto) 0.69 L (1.2-3.4) K/uL [place] # (Auto) 0.92 H (0.11-0.59) K/uL Eos # (Auto) 0.00 (0-0.5) K/uL Baso # (Auto) 0.01 (0-0.2) K/uL PT 15.2 H (9.0-12.0) Seconds INR 1.5 H (0.9-1.1) APTT 25.8 (21.0-31.0) Seconds PTT Ratio 1.0 VBG pH (7.36-7.41) VBG pCO2 (38-50) mmHg VBG pO2 mmHg VBG HCO3 mmol/L VBG O2 Saturation % VBG Base Excess mEq/L Barometric Pressure mm/Hg POC Sodium (135-144) mEq/L Sodium 134 L (136-145) mmol/L POC Potassium (3.3-5.0) mEq/L Potassium 2.6 L (3.5-5.1) mmol/L POC Chloride (101-112) mEq/L Chloride 97 L (98-107) mmol/L Carbon Dioxide 22 (21-32) mmol/L POC Total CO2 (24-31) mEq/l Anion Gap 15.0 H (3-11) POC Anion Gap (16-25) mmol/L POC BUN (7-18) mg/dl BUN 55 H (7-18) mg/dl Creatinine 3.81 H (0.6-1.4) mg/dl POC Creatinine (0.6-1.3) mg/dl Est Cr Clr Drug Dosing Not Reportable Est GFR ( Amer) 17.3 Est GFR (Non-Af Amer) 15.0 BUN/Creatinine Ratio 14.5 (10-20) Glucose 150 H (70-99) mg/dl POC Glucose (other) (70-99) mg/dl Calcium < 5.0 L* (8.5-10.1) mg/dl POC Ioniz Calcium Lesvia (1.12-1.32) mmol/l Magnesium 0.4 L* (1.8-2.4) mg/dl Total Bilirubin 0.4 (0.2-1) mg/dl AST 13 L (15-37) U/L ALT 10 L (12-78) U/L Alkaline Phosphatase 105 (45-117) U/L Troponin I 0.016 (0-0.045) ng/ml Total Protein 6.1 L (6.4-8.2) gm/dl Albumin 2.2 L (3.4-5.0) gm/dl Globulin 3.9 (2.5-4.0) gm/dl Albumin/Globulin Ratio 0.6 L (0.9-2) Lipase 25 L (73-393) U/L Specimen Hemolysis 09/06/19 09/06/19 Range/Units 19:32 19:37 WBC (4.8-10.8) K/uL RBC (4.7-6.1) M/uL Hgb (14.0-18.0) g/dL POC Hgb 13.6 L (14.0-18.0) g/dl Hct (42-52) % POC Hct 40 L (42-52) % MCV (80-100) fL MCH (25-34) pg MCHC (32-36) g/dL RDW Std Deviation (36.4-46.3) fL RDW Coeff of Migel (11.5-14.5) % Plt Count (130-400) K/uL MPV (7.4-10.4) fL Immature Gran % (Auto) % Neut % (Auto) % Lymph % (Auto) % [place] % (Auto) % Eos % (Auto) % Baso % (Auto) % Immature Gran # (Auto) (0.00-0.02) K/uL Neut # (Auto) (1.4-6.5) K/uL Lymph # (Auto) (1.2-3.4) K/uL [place] # (Auto) (0.11-0.59) K/uL Eos # (Auto) (0-0.5) K/uL Baso # (Auto) (0-0.2) K/uL PT (9.0-12.0) Seconds INR (0.9-1.1) APTT (21.0-31.0) Seconds PTT Ratio VBG pH 7.34 L (7.36-7.41) VBG pCO2 40 (38-50) mmHg VBG pO2 31 mmHg VBG HCO3 21 mmol/L VBG O2 Saturation < 60.0 % VBG Base Excess -4.6 mEq/L Barometric Pressure 731.0 mm/Hg POC Sodium 134 L (135-144) mEq/L Sodium (136-145) mmol/L POC Potassium 2.3 L* (3.3-5.0) mEq/L Potassium (3.5-5.1) mmol/L POC Chloride 95 L (101-112) mEq/L Chloride (98-107) mmol/L Carbon Dioxide (21-32) mmol/L POC Total CO2 23 L (24-31) mEq/l Anion Gap (3-11) POC Anion Gap 19.0 (16-25) mmol/L POC BUN 57 H (7-18) mg/dl BUN (7-18) mg/dl Creatinine (0.6-1.4) mg/dl POC Creatinine 3.9 H (0.6-1.3) mg/dl Est Cr Clr Drug Dosing Est GFR ( Amer) Est GFR (Non-Af Amer) BUN/Creatinine Ratio (10-20) Glucose (70-99) mg/dl POC Glucose (other) 154 H (70-99) mg/dl Calcium (8.5-10.1) mg/dl POC Ioniz Calcium Lesvia 0.60 L* (1.12-1.32) mmol/l Magnesium (1.8-2.4) mg/dl Total Bilirubin (0.2-1) mg/dl AST (15-37) U/L ALT (12-78) U/L Alkaline Phosphatase (45-117) U/L Troponin I (0-0.045) ng/ml Total Protein (6.4-8.2) gm/dl Albumin (3.4-5.0) gm/dl Globulin (2.5-4.0) gm/dl Albumin/Globulin Ratio (0.9-2) Lipase (73-393) U/L Specimen Hemolysis Imaging Data Radiologist's Impression: Radiology results as stated below per my review and the radiologist's interpretation: CT abd pelvis wo con CT DOSE: 424.21 mGy.cm HISTORY: Pain. Nausea. LUQ pain TECHNIQUE: Multiaxial CT images of the abdomen and pelvis were performed without contrast. A dose lowering technique was utilized adhering to the principles of ALARA. COMPARISON STUDY: 01/25/2019 FINDINGS: Fluid-filled loops of small bowel as well as colon. Gastrostomy tube in good position. Trace free air. No evidence for an obstructive pattern. Anastomotic line of the low rectosigmoid. Kidneys negative for hydronephrosis. Basilar parenchymal infiltrates are noted. Hiatal hernia. IMPRESSION: 1. Fluid-filled colon as well as small bowel. 2. Moderate pneumomediastinum. 3. Bibasilar pleural effusions with basilar parenchymal infiltrative change. 4. Potential trace intra-abdominal free air The above report was generated using voice recognition software. It may contain grammatical, syntax or spelling errors. Electronically signed by: Ron Friend M.D. 09/06/2019 8:[address] chest wo con CT DOSE: HISTORY: Dyspnea SOB TECHNIQUE: Multiaxial CT images of the chest were performed without contrast. A dose lowering technique was utilized adhering to the principles of ALARA. COMPARISON: 03/20/2019 FINDINGS: Bibasilar parenchymal infiltrates. Bilateral pleural effusions. Evidence for small left pneumothorax. Moderate pneumomediastinum. Supra clavicular subcutaneous emphysematous change. Tracheostomy tube is in position. IMPRESSION: 1. Bilateral parenchymal infiltrates. 2. 2. Small left pneumothorax. 3. Moderate underlying emphysematous change. 4. Small pneumopericardium as well as pneumomediastinum. 5. Small subcutaneous emphysematous change of the soft tissue neck region. 5. Interval tracheostomy tube in good position. The above report was generated using voice recognition software. It may contain grammatical, syntax or spelling errors. Electronically signed by: Ron Friend M.D. 09/06/2019 8:16 PM ECG Data Attestation: I personally reviewed and interpreted this ECG as follows: Indication: abdominal pain Rate (beats per minute): 133 Rhythm: sinus tachycardia Findings: + other (poor baseline, poor R wave progression) and + ST depression (lateral); no ectopy Comparison ECG Date: from (07/12/19) Change: no significant change Blood Pressure Blood Pressure Findings: Low blood pressure Blood Pressure Disposition: further management by hospitalist MARLY Hunter The patient is a 73-year-old male who presented to the emergency department for an evaluation of difficulty breathing and abdominal pain. I received a prehospital notification about this patient requesting pain medication for severe abdominal pain. He did receive IV fluids and IV fentanyl. Upon arrival the patient was found to be in very significant respiratory distress. The patient had a trach in place which was placed earlier in the year. His overall appearance was consistent with very significant illness. I discussed the patient's laboratory and radiographic studies with him. He was treated with IV fluids and IV anabiotic's for presumed pneumonia also was found to have pneumomediastinum pneumopericardium and a small pneumothorax. I discussed his case with the on-call [facility] hospitalist group. I also discussed the case with the ICU group. The patient was evaluated in the emergency department by both groups. The patient continued to have hypotension. For this reason a central line was placed in the left femoral vein. We discussed the patient's pneumothorax and the admitting team discussed the case with the thoracic surgeon. The patient was somewhat improved on reevaluation but he is still very critical. He was transferred to the ICU. Impression & Plan Pneumonia, Abdominal pain, Sepsis, Respiratory failure, Pneumomediastinum, Chest pain, Pneumopericardium, Pneumothorax, Hypomagnesemia, Hypokalemia, Hypocalcemia Critical Care Time Critical Care Time: Yes Total Critical Care Time: 65 I have personally spent greater than 65 minutes of critical care time in the direct management of this patient. This includes bedside care, interpretation of diagnostic studies, and testing, discussion with consultants, patient, and family members, and other required patient management activities. This 65 minutes is in excess of all separately billable procedures. Discharge Plan Visit Data *Final* Discharge Date/Time: 09/06/19 22:55 Chief Complaint: Abdominal Pain Stated Complaint: abd pain ED Provider: Khoi Atkinson Discharge Problem: Pneumonia, Abdominal pain, Sepsis, Respiratory failure, Pneumomediastinum, Chest pain, Pneumopericardium, Pneumothorax, Hypomagnesemia, Hypokalemia, Hypocalcemia Patient Disposition: Admitted As Inpatient Condition: Critical Discharge Instructions Interventions: ED Discharge Assessment Last Done: 09/06/19 22:55 Discharge Problem: Pneumonia Qualifiers: Pneumonia type: due to unspecified organism Laterality: unspecified laterality Lung location: unspecified part of lung Qualified Code(s): J18.9 - Pneumonia, unspecified organism Abdominal pain Qualifiers: Abdominal location: left upper quadrant Qualified Code(s): R10.12 - Left upper quadrant pain Sepsis Qualifiers: Sepsis type: sepsis due to unspecified organism Sepsis acute organ dysfunction status: unspecified Qualified Code(s): A41.9 - Sepsis, unspecified organism Respiratory failure Qualifiers: Chronicity: unspecified Respiratory failure complication: hypoxia Qualified Code(s): J96.91 - Respiratory failure, unspecified with hypoxia Chest pain Qualifiers: Chest pain type: unspecified Qualified Code(s): R07.9 - Chest pain, unspecified Pneumothorax Qualifiers: Pneumothorax type: unspecified pneumothorax Qualified Code(s): J93.9 - Pneumothorax, unspecified The scribe's documentation has been prepared under my direction and personally reviewed by me in its entirety. I confirm that the note above accurately reflects all work, treatment, procedures, and medical decision making performed by me.
--- NOTE | 2019-09-06 20:17 | CT Scan Report ---
CT chest wo con CT DOSE: HISTORY: Dyspnea SOB TECHNIQUE: Multiaxial CT images of the chest were performed without contrast. A dose lowering techni que was utilized adhering to the principles of ALARA. COMPARISON: 03/20/2019 FINDINGS: Bibasilar parenchymal infiltrates. Bilateral pleural effusions. Evidence for small left pne umothorax. Moderate pneumomediastinum. Supraclavicular subcutaneous emphysematous change. Tracheostomy tube is in position. IMPRESSION: 1. Bilateral parenchymal infiltrates. 2. 2. Small left pneumothorax. 3. Moderate underlying emphysematous change. 4. Small pneumopericardium as well as pneumomediastinum. 5. Small subcutaneous emphysematous change of the soft tissue neck region. 5. Interval tracheostomy tube in good position. The above report was generated using voice recognition software. It may contain grammatical, syntax or spelling errors. Electronically signed by: Ron Friend M.D. 09/06/2019 8:16 PM
[2019-09-06 20:22] LABS: Alanine Aminotransferase 10 U/L (12-78); Albumin Globulin Ratio 0.6 (0.9-2); Albumin Level 2.2 gm/dl (3.4-5.0); Alkaline Phosphatase 105 U/L (45-117); Aspartate Aminotransferase 13 U/L (15-37); BUN Creatinine Ratio 14.5 (10-20); Bilirubin,Total 0.4 mg/dl (0.2-1); Blood Urea Nitrogen 55 mg/dl (7-18); Calcium < 5.0 mg/dl (8.5-10.1); Carbon Dioxide 22 mmol/L (21-32); Chloride 97 mmol/L (98-107); Est GFR (African American) 17.3; Globulin 3.9 gm/dl (2.5-4.0); Glucose 150 mg/dl (70-99); Lipase 25 U/L (73-393); Potassium 2.6 mmol/L (3.5-5.1); Sodium 134 mmol/L (136-145); Total Protein 6.1 gm/dl (6.4-8.2); Troponin I 0.016 ng/ml (0-0.045)
--- NOTE | 2019-09-06 20:22 | CT Scan Report ---
CT abd pelvis wo con CT DOSE: 424.21 mGy.cm HISTORY: Pain. Nausea. LUQ pain TECHNIQUE: Multiaxial CT images of the abdomen and pelvis were performed without contrast. A dose lo wering technique was utilized adhering to the principles of ALARA. COMPARISON STUDY: 01/25/2019 FINDINGS: Fluid-filled loops of small bowel as well as colon. Gastrostomy tube in good position. Trace free air. No evidence for an obstructive pattern. Anastomotic line of the low rectosigmoid. Kidneys negative fo r hydronephrosis. Basilar parenchymal infiltrates are noted. Hiatal hernia. IMPRESSION: 1. Fluid-filled colon as well as small bowel. 2. Moderate pneumomediastinum. 3. Bibasilar pleural effusions with basilar parenchymal infiltrative change. 4. Potential trace intra-abdominal free air The above report was generated using voice recognition software. It may contain grammatical, syntax or spelling errors. Electronically signed by: Ron Friend M.D. 09/06/2019 8:21 PM
[2019-09-06] MEDS ORDERED: PIPERACILL/TAZOBAC CONSULT ACTIVE PRN (20:39)
[2019-09-06] MEDS ORDERED: SODIUM CHLORIDE 0.9% 1000ML 1,000 ML IV ONE (20:39)
[2019-09-06] MEDS ORDERED: PIPERACILLIN/TAZOBACTAM 4.5 GM/120 ML BAG IV ONE (20:39)
[2019-09-06] MEDS ORDERED: LEVOFLOXACIN/D5W 750 MG/150 ML BAG IV STA (20:39)
[2019-09-06] MEDS ORDERED: LINEZOLID 600 MG/300 ML D5W IV ONE (20:41)
[2019-09-06 20:43] LABS: Magnesium 0.4 mg/dl (1.8-2.4)
[2019-09-06] MEDS ORDERED: CALCIUM GLUCONATE 10% 1,000 MG in SODIUM CHLORIDE 0.9% 50 ML IV STA (21:26)
--- NOTE | 2019-09-06 21:40 | History & Physical Report ---
Date of Service September 06, 2019 Assessment & Plan (1) Respiratory failure: (2) Multifocal pneumonia: (3) Aspiration pneumonia: (4) Pneumopericardium: (5) Pneumomediastinum: (6) Esophageal cancer: (7) HTN (hypertension): (8) Chest pain: (9) COPD (chronic obstructive pulmonary disease): (10) Paranoid schizophrenia: (11) Abdominal pain: (12) DVT prophylaxis: Abx, Nebs, Pulm eval Trach and small PTX, NPO, IVFs, Steroids, Serial trops, Calcium, ICU, d/w Dr Washington who reviewed films and will see in am. History of Present Illness 73 year old male who presents to the Emergency Room with complaints of constant abdominal pain starting 4 hours ago. The patient states he was getting into bed and laid on his left side when he started having pain in his upper left abdomen near his feeding tube. The patient states he is having trouble breathing right now. He states he is having breathing problems. He was at [facility] for his feeding tube. He has cancer in his throat and stomach. The also c/o chest pain as well. In the ER he was in resp distress, breathing 40 x per minute, His lungs are coarse, his HR is 140 as well. He still wants to be a full code. He was found to have a B/L PNA and abx have been started. He will be admitted to the ICU. Primary Care Provider: [facility] Allergies Allergy/AdvReac Type Severity Reaction Status Date / Time buspirone Allergy Unknown ON Verified 09/06/19 19:59 ARISTACARE LIST clonazepam Allergy Unknown ON Verified 09/06/19 19:59 ARISTACARE LIST clozapine Allergy Unknown Unknown Verified 09/06/19 19:59 promethazine Allergy Unknown ON Verified 09/06/19 19:59 ARISTACARE LIST Home Medications Home Medications Medication Instructions Recorded Confirmed Type albuterol sulfate [Ventolin HFA] 2 puff INHALATION QID 09/09/18 09/06/19 History diphenhydramine HCl [Banophen] 25 mg PO HS PRN 01/06/19 09/06/19 History risperidone 2 mg PO AMHS 02/11/19 09/06/19 History Eternal Feeding 150 ml FEEDING TUBE .BID AT 0200 & 09/06/19 09/06/19 History 2200 Liquid Protein Suppliment 30 ml PO TID 09/06/19 09/06/19 History Supplimental Shakes 1 can PO HS 09/06/19 09/06/19 History acetaminophen 325 mg PO Q4H PRN 09/06/19 09/06/19 History albuterol sulfate 2.5 mg INHALATION Q6H PRN 09/06/19 09/06/19 History budesonide-formoterol 2 puff INHALATION BID 09/06/19 09/06/19 History loperamide [Imodium A-D] 2 mg PO Q6H PRN 09/06/19 09/06/19 History melatonin 6 mg FEEDING TUBE HS 09/06/19 09/06/19 History metoprolol tartrate 25 mg PO BID 09/06/19 09/06/19 History omeprazole magnesium [Prilosec] 40 mg FEEDING TUBE QAM 09/06/19 09/06/19 History ondansetron HCl [Zofran] 4 mg PO Q8H PRN 09/06/19 09/06/19 History oxycodone-acetaminophen [Percocet] 1 tab PO Q6H PRN 09/06/19 09/06/19 History quetiapine 100 mg PO HS 09/06/19 09/06/19 History Past Med/Surg History Medical History Difficult intubation Esophageal cancer (Acute) History of esophageal cancer (Chronic) 11/20/18 EGD: Nodular ulcerated lesion. EUS: Mass lower third esophagus. Biopsies positive for adenocarcinoma. Paranoid schizophrenia (Chronic) COPD (chronic obstructive pulmonary disease) (Chronic) HTN (hypertension) (Chronic) GERD (gastroesophageal reflux disease) (Chronic) Tobacco abuse (Chronic) Kevin esophagus (Chronic) GI bleed Sepsis Surgical History History of esophagogastroduodenoscopy (EGD) (Chronic) History of skin graft (Chronic) as child History of bowel resection (Chronic) "for diverticulitis " in 2009 Family History Mother Stroke Thyroid disorder Father Myocardial infarction Other Heart disease Social History Preferred Language: Frisian Communication Ability: Effective Visual Impairment: No Limitations Childrens Club Attendant Required: No Beliefs That Will Affect Care: Restorationism Restorationism Beliefs: Presybeterian Current Living Situation: Personal Care Facility Current Living Situation Comment: lives at [facility] Feels Safe at Home: Yes Smoking Status: Former smoker Tobacco Type: cigarettes ; Cigarettes Per Day: 20 ; Second Hand Exposure: No ; Hx Alcohol Use: No Hx Substance Use: No Review of Systems Review of Systems: ROS-No Headache, No Visual Changes, No Nausea, No Vomiting, No Fever, No Chills, No Neck Pain or Stiffness, + Chest Pain, No Palpitations, + SOB, No COELHO, + Cough, + Sputum, + Wheezing, + Abdominal Pain, No Diarrhea, No Hematemesis, No Hemoptysis, Pos Weight Loss, No Flank pain, No Melena, No Hematochezia, No Frequency, No Urgency, No Burning, No Hematuria, No Rashes, No Diaphoresis. Physical Exam Gen-AAO x 3, Mod resp distress, Afebrile, Frail and Cachectic Head-NCAT, EOMI, PERRLA, Anicteric Sclera, No Posterior Pharyngeal Erythema Neck-Supple, No JVD, No Thyromegaly, No Masses, No LAD, No Bruits Lungs-Coarse BS Bilaterally, No Rales, + Rhonchi, + Wheezing, + Crepitus Chest-No S4, +S1, +S2, No S3, No Murmurs, No Rubs, No Gallops, No Ectopy Abdomen-Soft, Bowel Sounds Present, Tender, Non Distended, No Hepatomegaly, No Splenomegaly, No Palpable Masses, No Rebound, No Rigidity, No Guarding Musculoskeletal-Full Range of Motion Bilaterally, No CVAT Extremities-No Cyanosis, No Clubbing, No Edema Nuero-Cranial Nerves II-XII grossly intact, Motor WNL, DTRs WNL, Strength WNL, Non Focal Psych-Normal Mood Results & Data Vital Signs (Past 12 Hours) Vital Signs Temp Pulse Resp BP Pulse Ox 09/06/19 20:20 152 H 40 H 103/76 09/06/19 20:09 146 H 09/06/19 19:45 134 H 34 H 108/86 94 09/06/19 19:31 132 H 40 H 92 09/06/19 19:30 132 H 39 H 113/89 90 09/06/19 19:24 36.9 C 135 H 36 H 86/61 L 95 09/06/19 19:22 134 H 36 H 94 09/06/19 19:19 132 H 37 H 107/69 92 Allergies buspirone Allergy (Unknown, Verified 09/06/19 19:59) ON ARISTACARE LIST clonazepam Allergy (Unknown, Verified 09/06/19 19:59) ON ARISTACARE LIST clozapine Allergy (Unknown, Verified 09/06/19 19:59) Unknown promethazine Allergy (Unknown, Verified 09/06/19 19:59) ON ARISTACARE LIST Height/Weight/Isolation Weight 48.5 kg Chemistry 09/06/19 19:25 Sodium 134 L Potassium 2.6 L Chloride 97 L Carbon Dioxide 22 Anion Gap 15.0 H BUN 55 H Creatinine 3.81 H Glucose 150 H Microbiology 09/06/19 20:19 Blood Aerobic Blood Culture - Pending 09/06/19 20:19 Blood Anaerobic Blood Culture - Pending 09/06/19 20:19 Blood Aerobic Blood Culture - Pending 09/06/19 20:19 Blood Anaerobic Blood Culture - Pending
[2019-09-06] MEDS: MAGNESIUM SULFATE / D5W 1 GM/100 ML BAG IV SCH ×2 (22:06→23:34)
[2019-09-06] MEDS: POTASSIUM CHLORIDE / WTR 10 MEQ/100 ML PLCT IV SCH ×2 (22:21→23:34)
[2019-09-06] MEDS ORDERED: NOREPINEPHRINE BIT INJ 8 MG in DEXTROSE 5% 500 ML IV SCH ×2 (23:00→23:30)
[2019-09-07] MEDS: POTASSIUM CHLORIDE / WTR 10 MEQ/100 ML PLCT IV SCH ×3 (00:06→02:31)
[2019-09-07] MEDS: MAGNESIUM SULFATE / D5W 1 GM/100 ML BAG IV SCH ×6 (00:06→13:19)
[2019-09-07] MEDS ORDERED: ICU PROTOCOL FOR HYPERGLYCEMIA PRN (00:31)
[2019-09-07] MEDS ORDERED: MoRPHine SULFATE 4 MG/ML 1 ML CARP\\VIAL IV PRN (00:31)
[2019-09-07] MEDS ORDERED: ALBUTEROL 0.083% NEBU SOLN 3 ML VIAL INH PRN (00:31)
[2019-09-07] MEDS ORDERED: ONDANSETRON INJ 2 MG/ML 2 ML VIAL IV PRN (00:31)
[2019-09-07] MEDS ORDERED: ACETAMINOPHEN 325 MG TAB PO PRN ×2 (00:31→09:56)
[2019-09-07] MEDS ORDERED: VANCOMYCIN CONSULT ACTIVE PRN (00:31)
[2019-09-07] MEDS ORDERED: SODIUM CHLORIDE 0.9% 1000ML 2,000 ML IV ONE (00:31)
[2019-09-07] MEDS ORDERED: ONDANSETRON 4 MG TAB PO PRN (00:31)
[2019-09-07] MEDS ORDERED: PIPERACILL/TAZOBAC CONSULT ACTIVE PRN (00:31)
[2019-09-07] MEDS ORDERED: VASOPRESSIN 20 UNITS in 0.9 % SODIUM CHLORIDE 100 ML IV SCH (00:33)
[2019-09-07] MEDS ORDERED: HYDROCORTISONE SOD SUCCINATE 100 MG/2 ML VIAL IV STA (00:33)
[2019-09-07] MEDS ORDERED: VASOPRESSIN 20 UNITS in 0.9 % SODIUM CHLORIDE 100 ML IV STA (00:35)
[2019-09-07] MEDS ORDERED: VANCOMYCIN HCL 1,000 MG in SODIUM CHLORIDE 0.9% 250 ML IV ONE (00:45)
[2019-09-07] MEDS ORDERED: NSS + 20MEQ KCL 20 MEQ/1,000 ML BAG IV SCH (00:45)
[2019-09-07] MEDS ORDERED: fentaNYL citrate 100 MCG/2 ML VIAL ONE (00:57)
--- NOTE | 2019-09-07 01:03 | Surgery Consultation ---
Date of Consultation September 07, 2019 Assessment & Plan (1) Pneumonia: The pneumomediastinum and pneumo pericardium are likely from esophageal perforation From his esophageal cancer which is essentially been untreated I do not appreciate significant left pneumothorax or pneumoperitoneum-it appears his abdomen Is soft and nondistended-I do not think he needs an urgent abdominal operation and obviously He is in no condition undergoing anesthesia Overall prognosis is very grave History of Present Illness Attending Physician: Tyrel López MD History of Present Illness Called by the ICU team to evaluate the patient for possible pneumoperitoneum Patient admitted to the emergency room with sepsis resenting with shortness of breath and abdominal pain Developing respiratory failure. She has a history of esophageal cancer no resection or current treatment. 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 His CAT scan of the chest and abdomen shows bilateral pneumonia with effusions left greater than right And pneumomediastinum and pneumopericardium There is also possible small left pneumothorax Nominal CT shows fluid in the small bowel and colon with potential small pneumoperitoneum Currently the ICU team appears to be resuscitating the patient for respiratory failure and hypotension Allergies Allergy/AdvReac Type Severity Reaction Status Date / Time buspirone Allergy Unknown ON Verified 09/06/19 19:59 ARISTACARE LIST clonazepam Allergy Unknown ON Verified 09/06/19 19:59 ARISTACARE LIST clozapine Allergy Unknown Unknown Verified 09/06/19 19:59 promethazine Allergy Unknown ON Verified 09/06/19 19:59 ARISTACARE LIST Home Medications Home Medications Medication Instructions Recorded Confirmed Type albuterol sulfate [Ventolin HFA] 2 puff INHALATION QID 09/09/18 09/06/19 History diphenhydramine HCl [Banophen] 25 mg PO HS PRN 01/06/19 09/06/19 History risperidone 2 mg PO AMHS 02/11/19 09/06/19 History Eternal Feeding 150 ml FEEDING TUBE .BID AT 0200 & 09/06/19 09/06/19 History 2200 Liquid Protein Suppliment 30 ml PO TID 09/06/19 09/06/19 History Supplimental Shakes 1 can PO HS 09/06/19 09/06/19 History acetaminophen 325 mg PO Q4H PRN 09/06/19 09/06/19 History albuterol sulfate 2.5 mg INHALATION Q6H PRN 09/06/19 09/06/19 History budesonide-formoterol 2 puff INHALATION BID 09/06/19 09/06/19 History loperamide [Imodium A-D] 2 mg PO Q6H PRN 09/06/19 09/06/19 History melatonin 6 mg FEEDING TUBE HS 09/06/19 09/06/19 History metoprolol tartrate 25 mg PO BID 09/06/19 09/06/19 History omeprazole magnesium [Prilosec] 40 mg FEEDING TUBE QAM 09/06/19 09/06/19 History ondansetron HCl [Zofran] 4 mg PO Q8H PRN 09/06/19 09/06/19 History oxycodone-acetaminophen [Percocet] 1 tab PO Q6H PRN 09/06/19 09/06/19 History quetiapine 100 mg PO HS 09/06/19 09/06/19 History Patient History Medical History Difficult intubation Esophageal cancer (Acute) History of esophageal cancer (Chronic) 11/20/18 EGD: Nodular ulcerated lesion. EUS: Mass lower third esophagus. Biopsies positive for adenocarcinoma. Paranoid schizophrenia (Chronic) COPD (chronic obstructive pulmonary disease) (Chronic) HTN (hypertension) (Chronic) GERD (gastroesophageal reflux disease) (Chronic) Tobacco abuse (Chronic) Kevin esophagus (Chronic) GI bleed Sepsis Surgical History History of esophagogastroduodenoscopy (EGD) (Chronic) History of skin graft (Chronic) as child History of bowel resection (Chronic) "for diverticulitis " in 2009 Family History Mother Stroke Thyroid disorder Father Myocardial infarction Other Heart disease Social History Preferred Language: Mohawk Communication Ability: Effective Visual Impairment: No Limitations Focusing Machine Operator Required: No Beliefs That Will Affect Care: Congregation Congregation Beliefs: Amish Current Living Situation: Personal Care Facility Current Living Situation Comment: lives at [facility] Feels Safe at Home: Yes Smoking Status: Former smoker Tobacco Type: cigarettes ; Cigarettes Per Day: 20 ; Second Hand Exposure: No ; Hx Alcohol Use: No Hx Substance Use: No Review of Systems Review of Systems: All systems reviewed & are unremarkable except as noted in HPI & below Physical Exam Physical Exam: Patient is in his ICU bed he is tachycardic tachypneic being bagged via his trach tube His abdomen is flat and soft, difficult to assess tenderness secondary to his resuscitation Respiratory: + respiratory distress and + retractions Cardiovascular: Rate/Rhythm: + tachycardic Musculoskeletal: Patient appears to be cachectic Skin: no rashes, warm and dry Results & Data Vital Signs (Past 12 Hours) Vital Signs Temp Pulse Pulse Resp BP BP Pulse Ox 09/06/19 23:48 80/40 L 09/06/19 23:16 125 H 24 82/48 L 90 09/06/19 22:45 130 H 32 H 80/59 L 09/06/19 22:41 134 H 36 H 104/70 09/06/19 22:37 134 H 32 H 09/06/19 22:30 138 H 25 H 09/06/19 22:27 136 H 24 41/25 L 09/06/19 22:01 142 H 36 H 143/89 H 63 L 09/06/19 22:00 134 H 44 H 69 L 09/06/19 21:31 148 H 37 H 91 09/06/19 21:30 145 H 45 H 101/85 87 L 09/06/19 21:15 138 H 34 H 98/68 L 91 09/06/19 21:01 141 H 43 H 90 09/06/19 21:00 141 H 36 H 89 L 09/06/19 20:45 151 H 40 H 91/76 L 92 09/06/19 20:38 155 H 38 H 95/76 L 92 09/06/19 20:37 154 H 24 09/06/19 20:30 153 H 41 H 88/63 L 91 09/06/19 20:21 155 H 29 H 89 L 09/06/19 20:20 152 H 40 H 103/76 09/06/19 20:09 146 H 09/06/19 19:45 134 H 34 H 108/86 94 09/06/19 19:31 132 H 40 H 92 09/06/19 19:30 132 H 39 H 113/89 90 10/27/19 19:24 36.9 C 135 H 36 H 86/61 L 95 09/06/19 19:22 134 H 36 H 94 09/06/19 19:19 132 H 37 H 107/69 92 I have reviewed his CAT scans PG Care Time/CCT Total # of Minutes Spent Total Time Spent with Patient: Total time spent is greater than 50% in coordination of care (as documented) at patient's floor/unit and/or counseling patient: (1) Pneumonia Laterality: unspecified laterality Lung location: unspecified part of lung Pneumonia type: due to unspecified organism Qualified Code(s): J18.9 - Pneumonia, unspecified organism
[2019-09-07] MEDS ORDERED: MIDAZOLAM HCL 1 MG/ML 2ML VIAL ONE (01:10)
[2019-09-07 01:19] LABS: Blood Urea Nitrogen 49 mg/dl (7-18); Carbon Dioxide 22 mmol/L (21-32); Chloride 102 mmol/L (98-107); Est GFR (African American) 24.1; Est GFR (Non-African American) 20.8; Glucose 267 mg/dl (70-99); Magnesium 1.8 mg/dl (1.8-2.4); Phosphorus 4.5 mg/dl (2.5-4.9); Potassium 2.6 mmol/L (3.5-5.1); Sodium 136 mmol/L (136-145); Troponin I 0.038 ng/ml (0-0.045)
[2019-09-07] MEDS ORDERED: fentaNYL DRIP 1,250 MCG/250 ML BAG IV SCH (01:19)
[2019-09-07] MEDS ORDERED: fentaNYL citrate 100 MCG/2 ML VIAL IV PRN ×2 (01:19→08:37)
--- NOTE | 2019-09-07 01:23 | Critical Care Consultation ---
Date of Consultation September 07, 2019 Assessment & Plan (1) Perforated carcinoma of esophagus: Reason Critically Ill: 73-year-old male with history of adenocarcinoma of esophagus and trach and PEG from shelter presented with sepsis, respiratory failure and was suspected to have perforated esophagus who developed tension pneumothorax. Neuro - Sedated: Fentanyl and propofol Cardiac - CHFlast echo showed EF 30 to 35% -We will consider Lasix with caution as patient is currently septic and hypotensive -We will wean vasopressors as tolerated -Continue to monitor on monitor and storage bin tender Tachycardiapatient appears to be chronically tachycardic based on past admissions, rate of 140s has improved since chest tube insertion -We will hold MTP for now considering patient is hypotensive, will restart when appropriate Respiratory - Hypoxic respiratory failurepatient was tachypnea, hypoxic, has chronic tracheostoma Cuffless trach changed to #6 Shiley, patient placed on ventilator -Current settings AC 28/400/5/60 percent, will keep PEEP low considering pneumothorax -AB.29/36/73/18 -Antibiotic therapy as below for suspected pneumonia -Patient has history of emphysema, continue nebs tension pneumothoraxpatient became tachycardic, hypotensive, and hypoxic on arrival to the ICU; chest x-ray revealed large left pneumothorax with tension pneumo -Bilateral chest tubes were placed at the bedside with immediate improvement in hemodynamics -Exudative pleural fluid observed, pleural studies pending GI - Perforated esophaguspatient presumed to have perforated esophagus given history and current findings -Thoracic surgery consulted, did not recommend surgical intervention given patient's terminal diagnosis -G-tube to gravity -IV Protonix Esophageal adenocarcinomapatient was not undergoing chemo or radiation as he was considered to be in too poor of health to tolerate -He reportedly refused surgical procedure 1 year ago -Diagnosis considered to be terminal, patient would likely benefit from palliative consult RENAL/LYTES - AKIlikely obstructive as patient's bladder was distended on CT -Eisenberg inserted, and creatinine improving -We will continue to trend Electrolyte abnormalitiespatient hypokalemic, hypocalcemic, hypomagnesemia -Currently replacing electrolytes and monitoring routine BMPs and ionized calciums - Foleystrict I's and O's ENDO - Euglycemic No history of thyroid disease HEME - H&H stable, trend with routine CBCs ID - Sepsispatient hypotensive, febrile, lactate elevated -Pulmonary source likely related to perforated esophagus given patient's presentation and history along with imaging -Fluid resuscitation with 3 L in ED, will continue bolus with caution given patient's reduced EF -Continue vancomycin and Zosyn -Blood cultures and pleural fluid cultures pending -Urinalysis pending LINES/IV ACCESS - Right femoral central line, PEG tube, tracheostomy, peripheral IVs DVT PROPHYLAXIS - SCDs, heparin I have personally spent 150 minutes of critical care time in the direct management of this patient. This is a life/limb threatening event. This includes time spent evaluating patient, direct bedside care, chart review, placing orders, interpretation of diagnostic studies, discussion with consultants, greg seals, and family members, as well as other required patient management activities. This time is exclusive of all separately billable procedures, and teaching time and separate from and in addition to any other critical care service time. Thank you for allowing us to participate in the care of this patient. Please refer to my attending physician's documentation for any further recommendations. (2) Sepsis: (3) Respiratory failure: (4) Pneumothorax: (5) Esophageal cancer: (6) On mechanically assisted ventilation: Supervising Physician Co-Signing Physician Notes Patient seen and examined with Kishan Augustin, nurse practitioner. I separately evaluated patient for desouza portions of the history and the exam. I was present during the critical portion of medical decision making, and I discussed the case with the nurse practitioner. I generally agree with the findings and plan except for any additions/exceptions noted. Patient with a history of esophageal cancer comes in with likely esophageal perforation and pneumomediastinum. I changed out his non-cuffed Shiley trach to a cuffed Shiley tracheostomy as he required ventilation. Subsequent to changing out the trach the tiny pneumothorax that he had on the left became much larger due to the positive pressure. He had continuing hypotension requiring high amounts of Levophed and vasopressin. It turned out that his left central line in his femoral region was actually in his femoral artery. This is placed by the emergency department. I placed a right femoral line in his femoral vein and we started pressors through the right femoral central line. Then a chest x-ray was obtained to follow-up on the concern for the pneumothorax on the left and it a ppeared that he had a very large pneumothorax. I placed the chest tube immediately on the left side and relieve the pneumothorax and 1200 mL's of brown fluid came out likely gastric contents. I then placed the chest tube on the right side as well and similarly colored fluid came out of the right pigtail. 500 mL's of gastric contents in the pleural space were aspirated in the Ava drain. His pressures improved substantially after bilateral chest tube insertion and we are weaning off the Levophed. I personally discussed the case with Dr. Washington who indicated that placing an esophageal stent would likely be futile in his case given his significant comorbidities. He is severely malnourished and has a background of severe schizophrenia. He lives in a shelter. Apparently he was not a candidate for even radiation to his esophagus. Patient is critically ill and his prognosis is extremely poor. Continue broad-spectrum antibiotics with anaerobic coverage. Continue full vent support. We are able to wean the FiO2 to 40%. Continue to keep a low PEEP given his pneumomediastinum. Continue lung protective ventilation strategies. I have personally spent 150 minutes of critical care time in the direct management of this patient. This is a life/limb threatening event. This includes time spent evaluating patient, direct bedside care, chart review, placing orders, interpretation of diagnostic studies, discussion with consultants, patient, and/or family members regarding treatment decisions, as well as other required patient management activities. This time is exclusive of all separately billable procedures, and teaching time and separate from and in addition to any other critical care service time. History of Present Illness Attending Physician: Tyrel López MD History of Present Illness Mr. Bailey is a 73-year-old male with past medical history significant for schizophrenia, Kevin's esophagus, esophageal adenocarcinoma of lower third (was deemed to week for chemo and radiation and denied surgery over one year ago), schizophrenia, CHF, COPD, and trach and PEG. He presented to the emergency department from shelter with complaints of abdominal pain and was found to be in respiratory distress, septic, and acute kidney injury. CT of the chest revealed patient had bilateral parenchymal infiltrates, small left pneumothorax, small pneumopericardium and pneumomediastinum. CT abdomen showed small free air in abdomen, no obstructive pattern. Thoracics and general surgery were consulted regarding CT findings but did not recommend intervention at the time. On arrival to the ICU the patient was found to be hypotensive, tachycardic, hypoxic, and unresponsive. It was discovered that his left femoral CVC was arterial and vasopressors were temporarily converted to peripheral IVs. He was given 1 amp bicarbonate and 1 L fluid bolus and was manually ventilated with bag. Dr. Roberts was contacted and came to the bedside. He inserted a central line and change the tracheostomy to a #6 Shiley cuffed, allowing the patient to be adequately ventilated. A chest x-ray then revealed that the patient's pneumothorax had developed into a large left tension pneumothorax and a left chest tube was immediately inserted. Air and dark pleural fluid were drained from the chest tube and the patient's hemodynamics immediately began to improve. inserted a right chest tube as well and again observed dark pleural fluid drained from the pleural space. Given patient's history it is believed that the patient's esophagus is perforated. Thoracics was again contacted and updated on patient's condition and findings. No surgical intervention was recommended at this time given patient's terminal prognosis. Patient currently remains on ventilator and low-dose vasopressors and will remain in ICU for further treatment and management for now. Allergies Allergy/AdvReac Type Severity Reaction Status Date / Time buspirone Allergy Unknown ON Verified 09/06/19 19:59 ARISTACARE LIST clonazepam Allergy Unknown ON Verified 09/06/19 19:59 ARISTACARE LIST clozapine Allergy Unknown Unknown Verified 09/06/19 19:59 promethazine Allergy Unknown ON Verified 09/06/19 19:59 ARISTACARE LIST Home Medications Home Medications Medication Instructions Recorded Confirmed Type diphenhydramine HCl [Banophen] 25 mg PO HS PRN 01/06/19 09/06/19 History risperidone 2 mg PO AMHS 02/11/19 09/06/19 History Prilosec 40 mg FEEDING TUBE QAM 09/06/19 09/06/19 History acetaminophen 325 mg PO Q4H PRN 09/06/19 09/06/19 History budesonide-formoterol 2 puff INHALATION BID 09/06/19 09/06/19 History metoprolol tartrate 25 mg PO BID 09/06/19 09/06/19 History oxycodone-acetaminophen [Percocet] 1 tab PO Q6H PRN 09/06/19 09/06/19 History quetiapine 100 mg PO HS 09/06/19 09/06/19 History arformoterol [Brovana] 15 mcg INHALATION BID 30 Days #120 09/07/19 Rx ml calcium carbonate [Tums] 750 mg PO BID 30 Days #225 tab 09/07/19 Rx heparin, porcine (PF) 5,000 unit SUBCUT Q8 15 Days #22.5 09/07/19 Rx ml Patient History Medical History Difficult intubation Esophageal cancer (Acute) History of esophageal cancer (Chronic) 11/20/18 EGD: Nodular ulcerated lesion. EUS: Mass lower third esophagus. Biopsies positive for adenocarcinoma. Paranoid schizophrenia (Chronic) COPD (chronic obstructive pulmonary disease) (Chronic) HTN (hypertension) (Chronic) GERD (gastroesophageal reflux disease) (Chronic) Tobacco abuse (Chronic) Kevin esophagus (Chronic) GI bleed Sepsis Surgical History History of esophagogastroduodenoscopy (EGD) (Chronic) History of skin graft (Chronic) as child History of bowel resection (Chronic) "for diverticulitis " in 2009 Family History Mother Stroke Thyroid disorder Father Myocardial infarction Other Heart disease Social History Preferred Language: Kinyarwanda Communication Ability: Unable Visual Impairment: No Limitations Stripe Matcher Required: No Beliefs That Will Affect Care: Uatsdin Uatsdin Beliefs: Catholic Current Living Situation: Personal Care Facility Current Living Situation Comment: [facility] Feels Safe at Home: Yes Smoking Status: Former smoker Tobacco Type: cigarettes ; Cigarettes Per Day: 20 ; Second Hand Exposure: No ; Hx Alcohol Use: No Hx Substance Use: No Review of Systems Review of Systems: Unobtainable due to endotracheal tube Physical Exam Constitutional: + frail appearing and + underweight Eyes: PERRL, conjunctivae normal, anicteric sclerae Neck: Tracheostoma midline Respiratory: Bilateral coarse crackles auscultated in all lung gomez with diminished lung sounds in bases bilaterally, symmetrical chest wall movement Cardiovascular: Rate/Rhythm: + tachycardic Heart Sounds: normal S1 and normal S2 Vessels: dorsalis pedis pulses present; no JVD Gastrointestinal (Abdomen): Inspection/Auscultation: normal bowel sounds; abdomen not distended Skin: no rashes, warm and dry Neurologic: Sedated, follows commands Psychiatric: Unable to assess secondary to sedation and tracheostomy on ventilator Genitourinary: Indwelling Eisenberg catheter Results & Data Vital Signs (Past 12 Hours) Vital Signs Temp Pulse Pulse Resp BP BP Pulse Ox 09/06/19 23:48 80/40 L 09/06/19 23:16 125 H 24 82/48 L 90 09/06/19 22:45 130 H 32 H 80/59 L 09/06/19 22:41 134 H 36 H 104/70 09/06/19 22:37 134 H 32 H 09/06/19 22:30 138 H 25 H 09/06/19 22:27 136 H 24 41/25 L 09/06/19 22:01 142 H 36 H 143/89 H 63 L 09/06/19 22:00 134 H 44 H 69 L 09/06/19 21:31 148 H 37 H 91 09/06/19 21:30 145 H 45 H 101/85 87 L 09/06/19 21:15 138 H 34 H 98/68 L 91 09/06/19 21:01 141 H 43 H 90 09/06/19 21:00 141 H 36 H 89 L 09/06/19 20:45 151 H 40 H 91/76 L 92 09/06/19 20:38 155 H 38 H 95/76 L 92 09/06/19 20:37 154 H 24 09/06/19 20:30 153 H 41 H 88/63 L 91 09/06/19 20:21 155 H 29 H 89 L 09/06/19 20:20 152 H 40 H 103/76 09/06/19 20:09 146 H 09/06/19 19:45 134 H 34 H 108/86 94 09/06/19 19:31 132 H 40 H 92 09/06/19 19:30 132 H 39 H 113/89 90 09/06/19 19:24 36.9 C 135 H 36 H 86/61 L 95 09/06/19 19:22 134 H 36 H 94 09/06/19 19:19 132 H 37 H 107/69 92 Coding Level of Care Code Critical Care 1st 30-74 mins Diagnoses Sepsis A41.9 Sepsis acute organ dysfunction status: unspecified Sepsis type: sepsis due to unspecified organism Respiratory failure J96.91 Chronicity: unspecified Respiratory failure complication: hypoxia Pneumothorax J93.9 Pneumothorax type: unspecified pneumothorax Esophageal cancer C15.9 On mechanically assisted ventilation Z99.11 Perforated carcinoma of esophagus C15.9 Time Spent (min) 150 (1) Pneumothorax Pneumothorax type: unspecified pneumothorax Qualified Code(s): J93.9 - Pneumothorax, unspecified (2) Respiratory failure Chronicity: unspecified Respiratory failure complication: hypoxia Qualified Code(s): J96.91 - Respiratory failure, unspecified with hypoxia (3) Sepsis Sepsis acute organ dysfunction status: unspecified Sepsis type: sepsis due to unspecified organism Qualified Code(s): A41.9 - Sepsis, unspecified organism
[2019-09-07 01:28] LABS: Calcium < 5.0 mg/dl (8.5-10.1)
[2019-09-07] MEDS ORDERED: PANTOprazole 40 MG in SYRINGE 0 ML IV ONE (01:30)
[2019-09-07] MEDS ORDERED: POTASSIUM CHLORIDE / WTR 10 MEQ/100 ML PLCT IV ONE (01:30)
[2019-09-07] MEDS ORDERED: PROPOFOL IV EMULSION 10 MG/ML 100 ML VIAL IV ONE (01:45)
[2019-09-07] MEDS ORDERED: CALCIUM CHLORIDE 10% 1,000 MG in SODIUM CHLORIDE 0.9% 50 ML IV ONE (01:45)
[2019-09-07 01:59] LABS: Creatine Kinase 171 U/L (39-308)
[2019-09-07] MEDS: HYDROCORTISONE SOD SUCCINATE 100 MG/2 ML VIAL IV ONE ×2 (02:22→02:24)
[2019-09-07] MEDS: HEPARIN SOD 5,000 UNIT/0.5 ML VIAL SQ SCH ×2 (02:32→05:11)
[2019-09-07] MEDS ORDERED: fentaNYL citrate 100 MCG/2 ML VIAL IV STA (02:39)
[2019-09-07] MEDS ORDERED: MIDAZOLAM HCL 1 MG/ML 2ML VIAL IV STA (02:40)
[2019-09-07] MEDS ORDERED: propofoL 1,000 MG/100 ML VIAL IV SCH (02:49)
--- NOTE | 2019-09-07 02:52 | Procedure Note ---
Procedure Note Date of Service September 07, 2019 PIGTAIL CATHETER PLACEMENT NOTE: Procedure: Pigtail Catheter Chest Tube Placement Indication: Left hydropneumothorax due to esophageal perforation Anesthesia: []Lidocaine 1% Consent was not obtained as this was an emergent procedure. Prior to procedure, chest x-ray films were reviewed by myself and demonstrated a large hydropneumothorax. A time-out was completed verifying correct patient, procedure, site, positioning, and implant(s) or special equipment if applicable. Utilizing bedside ultrasound, chest wall was evaluated for location for optimal chest tube placement. Location between the fifth and sixth ribs were marked on the skin using gentle pressure. The left sided chest wall was prepped with chlorhexidine and draped in the typical sterile fashion. 5 mL of 1% Lidocaine without epinephrine was used to anesthetize the skin down to the dorsal surface of the fifth rib. Fluid and air return confirmed entry into the pleural space. Lidocaine was injected into the pleural space for increased anesthetization. Introducer needle on syringe was inserted in perpendicular fashion taking care to ride just above the dorsal surface of the fifth rib. Entry into the pleural space was heralded by fluid and air return into the syringe while under gentle aspiration. Guide wire was advanced into the pleural space without resistance and the introducer needle was subsequently removed. Scalpel was used to make small incision of the superficial tissue, parallel to the direction of the rib anatomy. Dilator was advanced uneventfully over the guide wire into the pleural space. 14 Mongolian Pigtail Catheter was inserted into the pleural space. Inner introducer and guide wire were removed. Drain was immediately connected to pre- prepared ZACHARIAH pleur-evac system. Pigtail was sutured securely in place and sterile dressing was applied. Chest tube was placed to -20 cmH2O suction. Maty ent tolerated procedure well. Blood Loss: Minimal Complications: None Yes post procedure Chest X-ray was ordered and reviewed by myself which demonstrated adequate placement. Coding CPT Codes Pulmonary/Thoracic - Pulmonary and Thoracic: Pleural drainage w/imaging ([id number])
--- NOTE | 2019-09-07 02:55 | Procedure Note ---
Procedure Note Date of Service September 07, 2019 PIGTAIL CATHETER PLACEMENT NOTE: Procedure: Pigtail Catheter Chest Tube Placement Indication: Right pleural effusion secondary to esophageal perforation Anesthesia: 8 lidocaine 1% Consent was not obtained as the procedure was emergent Prior to procedure, chest x-ray films were reviewed by myself and demonstrated a large right pleural effusion. A time-out was completed verifying correct patient, procedure, site, positioning, and implant(s) or special equipment if applicable. Utilizing bedside ultrasound, chest wall was evaluated for location for optimal chest tube placement. Location between the fifth and sixth ribs were marked on the skin using gentle pressure. The right sided chest wall was prepped with chlorhexidine and draped in the typical sterile fashion. 8 mL of 1% Lidocaine without epinephrine was used to anesthetize the skin down to the dorsal surface of the fifth rib. Fluid return confirmed entry into the pleural space. Lidocaine was injected into the pleural space for increased anesthetization. Introducer needle on syringe was inserted in perpendicular fashion taking care to ride just above the dorsal surface of the fifth rib. Entry into the pleural space was heralded by fluid return into the syringe while under gentle aspiration. Guide wire was advanced into the pleural space without resistance and the introducer needle was subsequently removed. Scalpel was used to make small incision of the superficial tissue, parallel to the direction of the rib anatomy. Dilator was advanced uneventfully over the guide wire into the pleural space. 14 Upper Sorbian Pigtail Catheter was inserted into the pleural space. Inner introducer and guide wire were removed. Drain was immediately connected to pre-prepared ZACHARIAH pleur-evac system. Pigtail was sutured securely in place and sterile dressing was applied. Chest tube was placed to -20 cmH2O suction. Patient tolerated procedure well. Blood Loss: Minimal Complications: None Yes post procedure Chest X-ray was ordered and reviewed by myself which demonstrated adequate placement. Coding CPT Codes Pulmonary/Thoracic - Pulmonary and Thoracic: Pleural drainage w/imaging ([id number])
[2019-09-07 02:57] LABS: iSTAT Art Bld Gas pCO2 Correct 36 mmHg (35-46); iSTAT Art Bld Gas pH Corrected 7.292 (7.35-7.45); iSTAT Arterial Blood Gas HCO3 17 meg/L (19-24); iSTAT Arterial Blood Gas pCO2 36 mmHg (35-46); iSTAT Arterial Blood Gas pH 7.29 (7.35-7.45); iSTAT Arterial Blood Gas pO2 73 mmHg (80-95); iSTAT Arterial Blood Gas pO2 C 71; iSTAT Carbon Dioxide 18 mEq/l (24-31); iSTAT FiO2 60 %; iSTAT Site Art Line
--- NOTE | 2019-09-07 02:57 | Procedure Note ---
Procedure Note Date of Service September 07, 2019 FEMORAL CENTRAL LINE PROCEDURE NOTE: Procedure: Femoral Central Line Placement Indication: Central Drug Administration, Poor Venous Access, Multiple Lab Draws Necessary, etc. Anesthesia: Yes none/5 mL lidocaine 1% No consent was signed and placed on the chart prior to procedure. Indication, risks, and benefits were explained at length. Procedure was emergent and no consent was obtained. A time-out was completed verifying correct patient, procedure, site, positioning, and implants(s) or special equipment if applicable. Patients right groin was cleansed and draped in the typical sterile fashion using Chloraprep. The Femoral Vein and Femoral Artery were identified using ultrasound. The superficial tissue was anesthetized using 5 mL of 1% lidocaine without epinephrine under direct visualization with the ultrasound. After adequate anesthetization was achieved, the Femoral Vein was cannulated under direct ultrasound guidance using an introducer needle on a syringe. Good venous blood return was maintained prior to removal of syringe from introducer needle. Using Seldinger Technique, a guide wire was advanced through the introducer needle without resistance. The introducer needle was removed and ultrasound images were obtained of the guide wire within the Femoral Vein and saved to the patients medical record. A small incision was made in penetrating fashion at the guide wire insertion site utilizing an 11 blade scalpel. The dilator was advanced to the vessel without resistance. The dilator was exchanged for the triple lumen catheter which was advanced into the vessel without resistance. The guide wire was removed intact from the catheter without issue. Claves were placed on each catheter tip with confirmation of good blood flow from each lumen. Each port was easily flushed with sterile saline. The catheter was placed at the hub and sutured in place. BioPatch was applied to the catheter and a sterile Tegaderm dressing was applied over the catheter with careful attention to sterility. Patient tolerated procedure well. No immediate complications were met. Images obtained are saved for permanent record Procedural Ultrasound Guidance: Procedure Date: 09/07/2019 Indication: Septic shock Artery AND Vein visualized: Yes Compressible Vein: Yes Guidewire or Short Catheter seen in vein prior to dilation: Yes Coding
--- NOTE | 2019-09-07 03:00 | Communication Note ---
Date of Service: September 07, 2019 Left central venous catheter was placed by the emergency department and is in the left femoral artery. We are currently using this as an arterial line. Do not infuse any medications or fluid into this line. Do not pull the catheter. Monitor pedal pulses and posterior tibial pulses every 1 hour.
[2019-09-07 03:12] LABS: Appearance Pleural Fluid CLOUDY; Color Pleural Fluid AMBER; Mononuclear WBC Pleural 6.7 %; Polynuclear WBC Pleural 93.3 %; RBC Pleural Fluid (A) 12000 /uL; Source Pleural Fluid LEFT LUNG; WBC Pleural Fluid (A) 34712 /uL
[2019-09-07 03:14] LABS: Albumin Pleural Fluid 0.7 g/dl; Glucose Pleural Fluid 220 mg/dl
[2019-09-07 03:37] LABS: Triglyceride Pleural Fluid 24 mg/dl
[2019-09-07] MEDS ORDERED: POTASSIUM CHLORIDE / WTR 20 MEQ/100 ML PLCT IV ONE (03:45)
[2019-09-07 03:46] LABS: LDH Pleural Fluid 812 U/L
[2019-09-07 04:26] LABS: Amylase Pleural Fluid 13964 U/L
[2019-09-07 05:53] LABS: Alanine Aminotransferase 7 U/L (12-78); Albumin Globulin Ratio 0.5 (0.9-2); Albumin Level 1.2 gm/dl (3.4-5.0); Alkaline Phosphatase 47 U/L (45-117); Aspartate Aminotransferase 8 U/L (15-37); BUN Creatinine Ratio 24.6 (10-20); Bilirubin,Total 0.5 mg/dl (0.2-1); Blood Urea Nitrogen 44 mg/dl (7-18); Calcium < 5.0 mg/dl (8.5-10.1); Carbon Dioxide 15 mmol/L (21-32); Chloride 113 mmol/L (98-107); Creatinine Clr Calc Pharmacy 26.6 ml/min; Est GFR (African American) 43.8; Est GFR (Non-African American) 37.8; Globulin 2.5 gm/dl (2.5-4.0); Glucose 141 mg/dl (70-99); Magnesium 1.3 mg/dl (1.8-2.4); Phosphorus 3.2 mg/dl (2.5-4.9); Potassium 3.2 mmol/L (3.5-5.1); Sodium 140 mmol/L (136-145); Total Protein 3.7 gm/dl (6.4-8.2); Troponin I 0.032 ng/ml (0-0.045)
[2019-09-07] MEDS ORDERED: PIPERACILLIN/TAZOBACTAM 3.375 GM in DEXTROSE 5% 100 ML IV SCH ×2 (06:00→14:00)
[2019-09-07] MEDS ORDERED: CALCIUM GLUCONATE 10% 1,000 MG in SODIUM CHLORIDE 0.9% 50 ML IV ONE (06:30)
[2019-09-07] MEDS: POTASSIUM CHLORIDE / WTR 20 MEQ/100 ML PLCT IV SCH ×2 (06:46→07:52)
[2019-09-07] MEDS ORDERED: SODIUM BICARB 8.4% INJ 50 MEQ/50 ML SYR IV STA (06:54)
[2019-09-07 07:04] LABS: Hematocrit (blood only) 32.9 % (42-52); Mean Corpuscular Hemoglobin 28.5 pg (25-34); Mean Corpuscular Hgb Conc 33.4 g/dL (32-36); Mean Corpuscular Volume 85.2 fL (80-100); Platelet Count 313 K/uL (130-400); RDW Coefficient of Variation 14.9 % (11.5-14.5); RDW Standard Deviation 46.4 fL (36.4-46.3); Red Blood Count 3.86 M/uL (4.7-6.1); White Blood Count 3.84 K/uL (4.8-10.8)
[2019-09-07 07:05] LABS: Appearance Urine Cloudy (Clear); Bacteria Urine Automated Negative (Negative); Bilirubin Urine Negative (Negative); Blood Urine 2+ (Negative); Color Urine Yellow; Glucose Urine UA Negative (Negative); Ketones Urine Negative (Negative); Leukocyte Esterase Urine Negative (Negative); Nitrite Urine Negative (Negative); Protein Urine 2+ (Negative); Specific Gravity Urine 1.027 (1.000-1.030); Urobilinogen Urine Negative (Negative)
--- NOTE | 2019-09-07 07:15 | XRay Report ---
KUB HISTORY: Evaluate central line placement. COMPARISON: KUB 03/25/2019. FINDINGS: Mildly dilated gas-filled loops of large and small bowel. This may represent an ileus. Left -sided pneumothorax is again noted. This is partially visualized. The left common femoral central elke ous catheter which terminates in the expected location of the left common iliac vein. A left upper qu adrant gastrostomy tube is again noted. No renal calculi. No ureteral calculi. No pneumoperitoneum o r pneumatosis. IMPRESSION: 1. Left-sided pneumothorax is again noted. 2. The left common femoral central venous catheter terminates in the expected location of left common iliac vein. Electronically signed by: Prasanna Crum M.D. 09/07/2019 7:13 AM
[2019-09-07 07:21] LABS: RBC Urine Automated 0-4 /hpf (0-4)
--- NOTE | 2019-09-07 07:21 | XRay Report ---
XR chest 1V portable HISTORY: Evaluate Pneumothorax COMPARISON: Chest CT 09/06/2019. FINDINGS: Significant increase in size in a large left pneumothorax with mild right mediastinal shift . A tracheostomy tube is in good position. Small bilateral pleural effusions are noted. Right perihil ar interstitial thickening may represent mild congestive change. IMPRESSION: Significant increase in size in a large left pneumothorax with mild right mediastinal shift suggestin g a tension pneumothorax. Electronically signed by: Prasanna Crum M.D. 09/07/2019 7:20 AM
--- NOTE | 2019-09-07 07:23 | XRay Report ---
XR chest 1V portable HISTORY: Left-sided pneumothorax. Chest tube insertion COMPARISON: Chest 09/07/2019. FINDINGS: Interval placement of a left apical pigtail pleural catheter with near complete resolution of the left pneumothorax. Bilateral pleural effusions and perihilar airspace opacities are noted. Thi s suggests mild congestive change. Suspect trace pneumomediastinum. Tracheostomy tube is a good posit ion. IMPRESSION: Interval placement of a left apical pigtail pleural catheter with near complete resolution of the lef t hemithorax. Suspect trace pneumomediastinum. Bilateral pleural effusions and perihilar airspace opa cities are noted. Electronically signed by: Prasanna Crum M.D. 09/07/2019 7:22 AM
--- NOTE | 2019-09-07 07:25 | XRay Report ---
XR chest 1V portable HISTORY: chest tube insertion COMPARISON: Chest 08/30/2019. FINDINGS: Left apical pleural catheter remains unchanged in position. There is near complete resoluti on of the left apical pneumothorax with a maximal pleural gap of 2 mm. Improved aeration within the l ungs. Small left pleural effusion and left basilar airspace opacities are noted. A tracheostomy tube and mild pneumomediastinum are again noted. Interval placement of right basilar pigtail pleural nolberto ter with decrease in size in the small right pleural effusion. IMPRESSION: 1. No significant change in the left apical pleural catheter and a tiny left apical pneumothorax. 2. Interval placement of a right pleural catheter with decrease in size in the right pleural effusion . No right-sided pneumothorax. 3. Tracheostomy tube and pneumomediastinum persist. Electronically signed by: Prasanna Crum M.D. 09/07/2019 7:24 AM
[2019-09-07 07:31] LABS: Basophils # (auto) 0.01 K/uL (0-0.2); Basophils % (auto) 0.3 %; Echinocytes 1+; Eosinophils # (auto) 0.02 K/uL (0-0.5); Eosinophils % (auto) 0.5 %; Immature Granulocytes # (auto) 0.02 K/uL (0.00-0.02); Immature Granulocytes % (auto) 0.5 %; Lymphocytes # (auto) 0.39 K/uL (1.2-3.4); Lymphocytes % (auto) 10.2 %; Monocytes # (auto) 0.27 K/uL (0.11-0.59); Neutrophils # (auto) 3.13 K/uL (1.4-6.5); Neutrophils % (auto) 81.5 %
[2019-09-07] MEDS ORDERED: INFLUENZA VACCINE HIGH DOSE 65+ 0.5 ML SYR IM ONE (08:00)
[2019-09-07] MEDS ORDERED: INFLUENZA ADMINISTRATION CHARGE ONE (08:00)
[2019-09-07] MEDS ORDERED: D5W AND 1/2NSS 1,000 ML IV SCH (08:30)
[2019-09-07] MEDS ORDERED: OMEPRAZOLE MAGNESIUM 40 MG feeding tube SCH (09:00)
[2019-09-07] MEDS ORDERED: PANTOprazole 40 MG in SYRINGE 0 ML IV SCH (09:00)
[2019-09-07] MEDS ORDERED: METOPROLOL TARTRATE 25 MG TAB PO SCH (09:00)
[2019-09-07] MEDS ORDERED: CALCIUM CARBONATE 500 MG CHEWABLE TAB PO SCH (09:00)
[2019-09-07] MEDS ORDERED: risperiDONE 2 MG TABLET PO SCH (09:00)
[2019-09-07] MEDS ORDERED: BUDESONIDE/FORMOTEROL FUMARATE 160/4.5 60 PUFFS/INHALER INH SCH (09:00)
--- NOTE | 2019-09-07 09:46 | Consultation Report ---
DATE OF CONSULTATION: 09/07/2019 REASON FOR CONSULTATION: Esophageal perforation. HISTORY OF PRESENT ILLNESS: Omari Bailey is a 73-year-old male with multiple medical issues. They are as follows: 1. Adenocarcinoma, distal esophagus. 2. History of cardiac arrest and respiratory failure necessitating a tracheostomy. 3. Left ventricular dysfunction. 4. History of aspiration pneumonias. 5. 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 6. Paranoid schizophrenia. 7. Chronic obstructive pulmonary disease. 8. History of cigarette smoking. 9. History of Kevin's esophagus. 10. History of bowel resection. 11. History of sepsis. The patient has multiple issues with his esophageal cancer. He was deemed not to be a candidate for surgery, chemotherapy, or radiation therapy. He has an adenocarcinoma of the distal esophagus and had a vascular fistula diagnosed last month. It is unclear to me where this fistula is, but a coil was placed by interventional radiology last month in [place]. In addition, the patient had a stent placed in the esophagus last month and this migrated after 48 hours. It migrated into the stomach and necessitating removal. The patient was transferred to [facility] and developed acute left upper quadrant pain and abdominal pain last night. He came into the ER where a pneumomediastinum was noted. It should be noted that the patient also had a tracheostomy placed for respiratory failure and was noted to be a difficult intubation after his cardiac arrest. The patient had respiratory difficulties and he was ventilated without a cuff in the ER and this may have gone into his esophagus. He has a perforated esophagus and had bilateral effusions, left much greater than right. He also had a large tension pneumothorax on the left. Dr. Gaston Perez expertly inserted bilateral pigtail catheters which do not have an air leak today. They are both draining serous fluid. He drained gastric contents from both pleural cavities. The x-ray has improved today. The patient is on a ventilator currently. He appears imprived, although he is hypotensive. I have been asked to comment on him from a thoracic surgery standpoint. Specifically, I have been asked about a stent insertion due to this perforation. PAST MEDICAL HISTORY: See above. PAST SURGICAL HISTORY: 1. Tracheostomy. 2. Laparotomy with bowel resection. 3. PEG tube insertion. 4. Multiple bronchoscopies and esophagoscopies. 5. Stent insertion. 6. Insertion of apparent coil just below the left mainstem bronchus. Does not appear to be into the aorta. MEDICATIONS: Multiple. Please see chart. ALLERGIES: 1. BUSPIRONE. 2. CLONAZEPAM. 3. CLOZAPINE. 4. PROMETHAZINE. SOCIAL HISTORY: The patient is a lifetime smoker. He currently lives at [facility], but he has been in a personal care facility for many years. It is unclear to me if this patient has ever been employed. He evaded that question. FAMILY MEDICAL HISTORY: The patient's mother of a stroke and father had a myocardial infarction. He has no children. REVIEW OF SYSTEMS: Surprisingly enough given his emaciated look, it is surprising to me that he really has not had much weight loss. He has been thin as long as he has been managed at this institution since probably 2016. The patient was found to have an adenocarcinoma in November of this year. He has not been treated with chemotherapy, radiation or surgery. The patient had a cardiac arrest and has a tracheostomy tube in for various reasons as noted above. He has marked shortness of breath. He does not get around much. He has a casdiomyopathy. He has not been able to eat and uses his PEG tube. He acutely had pain as noted above. There has been a question of him having extrapyramidal symptoms from his psychotropic medications; however, he does not appear to be having any dystonic reactions today. He denies pain this morning. He has had no peripheral edema. He does have a problem in his left groin. He has a central line in his femoral artery which will be pulled this morning. This was placed last night in the Emergency Room. PHYSICAL EXAMINATION: GENERAL: This is an emaciated 5 feet 7 inch, 108 pound male who is awake, alert and does answer questions, although he has limitations that he is on a ventilator, has a tracheostomy tube in place. He has temporal wasting. HEENT: His sclerae are pale. Pupils equal, round, reactive. Tongue is midline. He has no nasolabial flattening. NECK: I do not detect carotid bruits and in addition I do not detect supraclavicular or cervical lymphadenopathy. LUNGS: He has marked rhonchi, but he is actually moving air in both lungs on the ventilator. He has had a tidal volume of 400 with a respiratory rate of 28. He has a tracheostomy, which appears to be well epithelialized. There is no surrounding erythema. His PEG tube is in place and has no surrounding erythema. He has a well-healed midline incision from his colon resection in the past. EXTREMITIES: He has marked atrophy of his arms in his legs. His extremity muscles are wasting. He has mild equine deformities of both feet. NEUROLOGIC: He can move all extremities, but he is quite weak. ASSESSMENT AND PLAN: Perforation of his distal esophageal cancer. This is not surprising. This patient is schizophrenic and wishes aggressive measures, but at this point given the bleeding he had and the problem he had with the fistula in the past, I would recommend this patient be referred back to [facility] where interventional vascular radiology can provide backup before an endoscopy or a stent is placed. In addition, in the big picture, I am not sure that placing a stent is going to be helpful for this patient whatsoever. JOSHUA
[2019-09-07] MEDS ORDERED: MoRPHine SULFATE 2 MG/ML CARP IV PRN (09:58)
--- NOTE | 2019-09-07 10:00 | Consultation ---
Date of Consultation September 07, 2019 Assessment & Plan (1) Complication of central venous catheter: Per staff, L femoral CVC was placed in L femoral artery, not vein. There was concern regarding perfusion of LLE. PT pulse is easily found and L foot does not appear any different than R foot, no sign of ischemia. If pt's L foot becomes cyanotic or pt loses the PT pulse in LLE, then pt would need emergent revascularization. Dr Espinosa is unavailable today d/t him being in [facility] all day. If pt reuqires emergent eval, would send pt to tertiary center. This was discussed with Dr Corado. If they wish catheter to be removed today, could consider consult to Dr Alex Henderson for removal. Please call if needed. History of Present Illness Reason for Consultation: R fem art line Attending Physician: Shanthi Pastrana MD History of Present Illness 73 yo m with multiple medical problems and resident of [facility], admitted with perforated esophageal carcinoma, seen in consultation to eval L foot perfusion after L fem art line placement during attempt for central venous catheter placement. Pt currently unable to answer questions. Per staff, pt with dopplerable PT pulse, but no DP pulse in LLE. Allergies Allergy/AdvReac Type Severity Reaction Status Date / Time buspirone Allergy Unknown ON Verified 09/06/19 19:59 ARISTACARE LIST clonazepam Allergy Unknown ON Verified 09/06/19 19:59 ARISTACARE LIST clozapine Allergy Unknown Unknown Verified 09/06/19 19:59 promethazine Allergy Unknown ON Verified 09/06/19 19:59 ARISTACARE LIST Home Medications Home Medications Medication Instructions Recorded Confirmed Type albuterol sulfate [Ventolin HFA] 2 puff INHALATION QID 09/09/18 09/06/19 History diphenhydramine HCl [Banophen] 25 mg PO HS PRN 01/06/19 09/06/19 History risperidone 2 mg PO AMHS 02/11/19 09/06/19 History Eternal Feeding 150 ml FEEDING TUBE .BID AT 0200 & 09/06/19 09/06/19 History 2200 Liquid Protein Suppliment 30 ml PO TID 09/06/19 09/06/19 History Supplimental Shakes 1 can PO HS 09/06/19 09/06/19 History acetaminophen 325 mg PO Q4H PRN 09/06/19 09/06/19 History albuterol sulfate 2.5 mg INHALATION Q6H PRN 09/06/19 09/06/19 History budesonide-formoterol 2 puff INHALATION BID 09/06/19 09/06/19 History loperamide [Imodium A-D] 2 mg PO Q6H PRN 09/06/19 09/06/19 History melatonin 6 mg FEEDING TUBE HS 09/06/19 09/06/19 History metoprolol tartrate 25 mg PO BID 09/06/19 09/06/19 History omeprazole magnesium [Prilosec] 40 mg FEEDING TUBE QAM 09/06/19 09/06/19 History ondansetron HCl [Zofran] 4 mg PO Q8H PRN 09/06/19 09/06/19 History oxycodone-acetaminophen [Percocet] 1 tab PO Q6H PRN 09/06/19 09/06/19 History quetiapine 100 mg PO HS 09/06/19 09/06/19 History Patient History Medical History Difficult intubation Esophageal cancer (Acute) History of esophageal cancer (Chronic) 11/20/18 EGD: Nodular ulcerated lesion. EUS: Mass lower third esophagus. Biopsies positive for adenocarcinoma. Paranoid schizophrenia (Chronic) COPD (chronic obstructive pulmonary disease) (Chronic) HTN (hypertension) (Chronic) GERD (gastroesophageal reflux disease) (Chronic) Tobacco abuse (Chronic) Kevin esophagus (Chronic) GI bleed Sepsis Surgical History History of esophagogastroduodenoscopy (EGD) (Chronic) History of skin graft (Chronic) as child History of bowel resection (Chronic) "for diverticulitis " in 2010 Family History Mother Stroke Thyroid disorder Father Myocardial infarction Other Heart disease Social History Preferred Language: [place] Communication Ability: Impaired Visual Impairment: No Limitations Route Service Representative Required: No Beliefs That Will Affect Care: Yarsanism Yarsanism Beliefs: Religious Current Living Situation: Personal Care Facility Current Living Situation Comment: [facility] Other Information That Helps Us Care for You: No Feels Safe at Home: Yes Safety Concerns: Feels Safe At This Time Smoking Status: Former smoker Tobacco Type: cigarettes ; Cigarettes Per Day: 20 ; Smoking End Date: 11/29 ; Second Hand Exposure: No ; Hx Alcohol Use: No Hx Substance Use: No Review of Systems Review of Systems: Unobtainable due to cognitive status Physical Exam Constitutional: well developed, + ill appearing, + cachectic, + frail appearing, + mechanically ventilated and + malnourished; + not well nourished and not in distress Respiratory: + tachypneic Auscultation: + diminished lung sounds Cardiovascular: Rate/Rhythm: + tachycardic Vessels: posterior tibial pulses present (Nonpalpable BLE. Biphasic RLE, biphasicLLE. ) and dorsalis pedis pulses present (Nonplapable BLE. Biphasic RLE, not dopplerable LLE. ); + abnormal peripheral pulses Extremities: normal capillary refill (Feet/toes warm and pale BLE. ) Gastrointestinal (Abdomen): Inspection/Auscultation: normal bowel sounds Pe rcussion/Palpation: abdomen soft Neurologic: awake and + obtunded Psychiatric: Orientation: alert and oriented to person; + not oriented to place and + not oriented to time Eye Contact: + poor eye contact Affect: + flat affect Results & Data Vital Signs (Past 12 Hours) Vital Signs Temp Pulse Pulse Resp BP BP Pulse Ox 09/07/19 08:00 121 H 09/07/19 07:40 125 H 37 H 95 09/07/19 05:18 122 H 33 H 95 09/07/19 02:28 120 H 30 H 94 09/07/19 01:43 38.6 C H 137 H 30 H 54/28 L 72 L 09/07/19 01:30 123 H 26 H 94 09/06/19 23:48 80/40 L 09/06/19 23:16 125 H 24 82/48 L 90 09/06/19 22:45 130 H 32 H 80/59 L 09/06/19 22:41 134 H 36 H 104/70 09/06/19 22:37 134 H 32 H 09/06/19 22:30 138 H 25 H 09/06/19 22:27 136 H 24 41/25 L 09/06/19 22:01 142 H 36 H 143/89 H 63 L 09/06/19 22:00 134 H 44 H 69 L
[2019-09-07 10:10] LABS: iSTAT Art Bld Gas pH Corrected 7.322 (7.35-7.45); iSTAT Arterial Blood Gas pCO2 50 mmHg (35-46); iSTAT Arterial Blood Gas pH 7.32 (7.35-7.45)
[2019-09-07 10:11] LABS: Patient Temperature 36.7; iSTAT Art Bld Gas pCO2 Correct 49 mmHg (35-46); iSTAT Arterial Blood Gas HCO3 26 meg/L (19-24); iSTAT Arterial Blood Gas pO2 65 mmHg (80-95); iSTAT Arterial Blood Gas pO2 C 64; iSTAT Carbon Dioxide 27 mEq/l (24-31)
[2019-09-07 10:12] LABS: iSTAT Sample Type Arterial
[2019-09-07] MEDS ORDERED: ALBUT/IPRATROP 3MG/0.5MG NEB 3 ML VIAL INH PRN (10:13)
[2019-09-07] MEDS ORDERED: SODIUM CHLORIDE 0.9% 500 ML IV SCH (10:15)
[2019-09-07] MEDS ORDERED: BUDESONIDE 0.25 MG/2 ML VIAL (PULMICORT) INH SCH (10:30)
[2019-09-07] MEDS ORDERED: ARFORMOTEROL TART 15MCG/2ML VIAL INH SCH (10:30)
--- NOTE | 2019-09-07 10:49 | Hospitalist Progress Note ---
Date of Service September 07, 2019 Results & Data Vital Signs (Past 12 Hours) Vital Signs Temp Pulse Pulse Resp BP Pulse Ox 09/07/19 10:10 129 H 27 H 92 09/07/19 08:00 121 H 09/07/19 07:40 125 H 37 H 95 09/07/19 05:18 122 H 33 H 95 09/07/19 02:28 120 H 30 H 94 09/07/19 01:43 38.6 C H 137 H 30 H 54/28 L 72 L 09/07/19 01:30 123 H 26 H 94 09/06/19 23:48 80/40 L 09/06/19 23:16 125 H 24 82/48 L 90
--- NOTE | 2019-09-07 11:20 | Critical Care Progress Note ---
Date of Service September 07, 2019 Assessment & Plan (1) Pneumothorax: -- VDRF Likely secondary to Hydropneumothorax with pleural effusion likely secondary to ruptured esophagus Continue with ventilatory support Keep RASS -1 Daily sedation holidays and SBT's Chlorhexidine mouthwash -- Hydropneumothorax On the left with bilateral pleural effusion and pneumomediastinum Patient had tension left-sided hydropneumothorax with large right-sided pleural effusion. Chest tube was placed in overnight with resolving hydropneumothorax in the left side. And improving right-sided pleural effusion. Continue with pigtail catheter. No air leak appreciated -- HAGMA Delta-delta: Less than 1 Likely sec to Lactic acidosis, non-anion gap could be from renal follow urine lites Monitor -- Severe hypocalcemia with decreased ionized calcium Patient got total 3 g of calcium gluconate We will get vitamin D, PTH level We will start the patient on 750 mg twice daily of calcium carbonate and vitamin D supplementation Patient has no active tetany. No J-point elevation on the EKG. -- Septic shock With gram-positive cocci in chains in the blood Continue with broad-spectrum antibiotics Patient is high risk for fungal infection as well given the rupture of esophagus We will consider starting the patient on antifungal prophylactically as patient is at high risk for fungemia -- DVT prophylaxis Heparin Continue with PEG feeding Had a discussion with would like to discuss the case with GI for possible stent placement in the esophagus. Apparently patient had a GI procedure done will not too long ago where he needed IR for bleeding in the esophagus. As per GI they would consider putting a stent and if they had good back-up from IR. Plan was discussed with CT surgery who recommends transferring the patient to [place] [facility] for further management. Patient care was discussed with airplane navigator at [place] [facility] Dr. Vega. Hospitalist made aware about the transfer. (2) Perforated carcinoma of esophagus: (3) Sepsis: (4) Respiratory failure: (5) Pneumomediastinum: Subjective Patient seen and examined at bedside. On ventilator. Double triggering on the vent. Volume control assist control was changed to PRVC and patient was not double triggering anymore. Propofol 10, fentanyl 50 Levophed Patient has bilateral chest tube in place. Review of Systems Review of Systems: Unobtainable due to cognitive status Patient has a trach. Physical Exam Physical Exam: Constitutional: Mild respiratory distress, cachexia HEENT: EOMI, PERRLA, Positive trach size 6 DCT Respiratory system: Decreased air entry bilaterally, positive bilateral lower lobe crackles, no wheeze, no rhonchi CVS: S1-S2 positive, no murmurs or gallops, Tachycardia, distant heart sounds Abdomen: Soft, nontender, nondistended, positive bowel sounds x4, Positive PEG Extremities: Decreased pulse left dorsalis pedis, +1 left posterior tibialis, +2 pulses bilaterally radialis, no edema, no cyanosis Neuro: Patient is awake alert, following Simple commands, Breathing over the vent Psych: Normal mood, unable to assess Left femoral A-line, right femoral triple-lumen catheter Left-sided anterior pigtail catheter drain total of 1800 cc Right-sided lateral pigtail catheter drain total of 650 cc Lymphatic: no cervical or axillary lymphadenopathy Results & Data Vital Signs (Past 12 Hours) Vital Signs Temp Pulse Pulse Resp BP Pulse Ox 09/07/19 10:57 126 H 126 H 28 H 95 09/07/19 10:10 129 H 27 H 92 09/07/19 08:00 121 H 09/07/19 07:40 125 H 37 H 95 09/07/19 05:18 122 H 33 H 95 09/07/19 02:28 120 H 30 H 94 09/07/19 01:43 38.6 C H 137 H 30 H 54/28 L 72 L 09/07/19 01:30 123 H 26 H 94 09/06/19 23:48 80/40 L 09/06/19 23:16 125 H 24 82/48 L 90 Laboratory Results 09/07/19 05:02 09/07/19 04:55 Microbiology 09/06/19 20:19 Blood Anaerobic Blood Culture - Preliminary Gram positive cocci in chains 09/07/19 02:30 Pleural Fluid Gram Stain - Final Diagnostic Findings Chest x-ray shows resolved left-sided pneumothorax, improvement in bilateral effusions. Coding Level of Care Code Critical Care ea addt'l 30 min (SIGNIFICANT, SEPARATELY IDENTIFIABLE ) Diagnoses Perforated carcinoma of esophagus C15.9 Sepsis A41.9 Sepsis acute organ dysfunction status: unspecified Sepsis type: sepsis due to unspecified organism Respiratory failure J96.91 Chronicity: unspecified Respiratory failure complication: hypoxia Pneumomediastinum J98.2 Pneumothorax J93.9 Pneumothorax type: unspecified pneumothorax CPT Codes Ventilator Management - Ventilator Managment: [id number] Ventilation assist and management; Hospital inpt/obs, intl day ([id number]) Time Spent (min) 40 (1) Sepsis Sepsis acute organ dysfunction status: unspecified Sepsis type: sepsis due to unspecified organism Qualified Code(s): A41.9 - Sepsis, unspecified organism (2) Respiratory failure Chronicity: unspecified Respiratory failure complication: hypoxia Qualified Code(s): J96.91 - Respiratory failure, unspecified with hypoxia (3) Pneumothorax Pneumothorax type: unspecified pneumothorax Qualified Code(s): J93.9 - Pneumothorax, unspecified
--- NOTE | 2019-09-07 11:44 | Discharge Summary ---
Date of Service September 07, 2019 Admission HPI Per Admitting Provider 73 year old male who presents to the Emergency Room with complaints of constant abdominal pain starting 4 hours ago. The patient states he was getting into bed and laid on his left side when he started having pain in his upper left abdomen near his feeding tube. The patient states he is having trouble breathing right now. He states he is having breathing problems. He was at [facility] for his feeding tube. He has cancer in his throat and stomach. The also c/o chest pain as well. In the ER he was in resp distress, breathing 40 x per minute, His lungs are coarse, his HR is 140 as well. He still wants to be a full code. He was found to have a B/L PNA and abx have been started. He will be admitted to the ICU. Admission Exam Per Admitting Provider Gen-AAO x 3, Mod resp distress, Afebrile, Frail and Cachectic Head-NCAT, EOMI, PERRLA, Anicteric Sclera, No Posterior Pharyngeal Erythema Neck-Supple, No JVD, No Thyromegaly, No Masses, No LAD, No Bruits Lungs-Coarse BS Bilaterally, No Rales, + Rhonchi, + Wheezing, + Crepitus Chest-No S4, +S1, +S2, No S3, No Murmurs, No Rubs, No Gallops, No Ectopy Abdomen-Soft, Bowel Sounds Present, Tender, Non Distended, No Hepatomegaly, No Splenomegaly, No Palpable Masses, No Rebound, No Rigidity, No Guarding Musculoskeletal-Full Range of Motion Bilaterally, No CVAT Extremities-No Cyanosis, No Clubbing, No Edema Nuero-Cranial Nerves II-XII grossly intact, Motor WNL, DTRs WNL, Strength WNL, Non Focal Psych-Normal Mood Principal Diagnosis Septic shock VDRF Esophageal perforation, Esophageal cancer Pneumopericardium Pneumothorax s/p bilateral chest tube placement STEFFI HAGMA Hypocalcemia, Hypokalemia, Hypomagnesemia Discharge Exam Constitutional: Awake, in mild respiratory distress, cachectic HEENT: EOMI, PERRLA, Positive trach size 6 DCT in situ Respiratory system: Decreased air entry bilaterally, positive bilateral lower lobe crackles, no wheeze, no rhonchi CVS: Tachycardic, S1 S2, no murmurs or gallops, distant heart sounds Abdomen: Soft, nontender, nondistended, positive bowel sounds x4 quadrants, PEG in situ Extremities: Decreased pulse left dorsalis pedis, +1 left posterior tibialis, +2 pulses bilaterally radialis, no edema, no cyanosis Neuro: Patient is awake alert, following Simple commands, Breathing over the vent Psych: unable to assess Left femoral A-line, right femoral triple-lumen catheter Left-sided anterior pigtail catheter drain total of 1800 cc Right-sided lateral pigtail catheter drain total of 650 cc Discharge Data Allergies Allergy/AdvReac Type Severity Reaction Status Date / Time buspirone Allergy Unknown ON Verified 09/06/19 19:59 ARISTACARE LIST clonazepam Allergy Unknown ON Verified 09/06/19 19:59 ARISTACARE LIST clozapine Allergy Unknown Unknown Verified 09/06/19 19:59 promethazine Allergy Unknown ON Verified 09/06/19 19:59 ARISTACARE LIST Consultations 09/06/19 22:15 Consult Thoracic Surgery Stat 09/07/19 00:31 Consult Case Management - Discharge Planning Routine Consult Exhaust Emissions Inspector Routine Consult Pulmonology Routine 09/07/19 04:27 Consult General Surgery Routine 09/07/19 08:34 Consult Vascular Surgery Routine 09/07/19 10:15 Consult Physician Routine 09/07/19 11:21 Burn CD for patient Stat Ordered Studies 09/06/19 19:41 CT abd pelvis wo con Stat 1. Fluid-filled colon as well as small bowel. 2. Moderate pneumomediastinum. 3. Bibasilar pleural effusions with basilar parenchymal infiltrative change. 4. Potential trace intra-abdominal free air CT chest wo con Stat 1. Bilateral parenchymal infiltrates. 2. Small left pneumothorax. 3. Moderate underlying emphysematous change. 4. Small pneumopericardium as well as pneumomediastinum. 5. Small subcutaneous emphysematous change of the soft tissue neck region. 6. Interval tracheostomy tube in good position. 09/07/19 11:12 sono, invasive monitoring [US point of care ultrasound] Routine Hospital Course (1) Respiratory failure: Ventilator dependent respiratory Failure Due to hydropneumothorax secondary to esophageal rupture/perforation Currently on trach to vent on PRVC (tidal vol 400, rate 26, PEEP 5, FiO2 45) On fentanyl drip Had tension left sided hydropneumothorax with large right pleural effusion b/l chest tube in place (2) Perforated carcinoma of esophagus: Exhaust Emissions Inspector discussed with GI who recommended esophageal stent placement with IR back up After further discussion, patient will be transferred to [facility] under Dr Vega for this. Arrangements made for transfer (3) Sepsis: With gram-positive cocci in chains in the blood Continue with broad-spectrum antibiotics Patient is high risk for fungal infection as well given the rupture of esophagus Consider starting the patient on antifungal prophylactically as patient is at high risk for fungemia Currently on levophed drip (4) Pneumomediastinum: As above (5) Pneumopericardium: As above (6) Hypocalcemia: Last ionized calcium is 0.71 Patient got total 3 g of calcium gluconate. Another 2g iv ordered as last Calcium reported while being prepped for transport was 5.5 Get vitamin D, PTH level Start the patient on 750 mg twice daily of calcium carbonate and vitamin D supplementation Monitor (7) Hypokalemia: Last potassium level this am 3.2 Being repleted Monitor (8) Hypomagnesemia: Last Mg is 1.3 Being repleted Monitor (9) High anion gap metabolic acidosis: Last AGAP is 12 Likely due to lactic acidosis in the setting of sepsis Lactate was 4.3 on admission. Improving. Last was 2.2 Follow urine lytes (10) STEFFI (acute kidney injury): Creatinine on admission was 3.8 Currently improving. Last this morning is 1.7 Continue to monitor Total Time Total Time Spent Total Time Spent (In Minutes): 45 Discharge Plan Discharge Items Patient Disposition: Transfer Acute Care Hospital Reason For Visit: PNA, CP Discharge Diagnosis: Possible esophageal perforation due to esophageal cancer VDRF Pneumomediastinum, Pneumopericardium Septic shock Condition on Discharge: Critical Activity: As commented below Activity Comment: None per now pending medical stabilization Non-emergency contact: Primary Care Provider, Hospitalist and Computer Operations Supervisor Call non-emergency contact if: you have any medication questions Follow-up/Referrals: Bernardo Bynum [Primary Care Provider] - Dietitian Info: Currently NPO Stand-Alone Forms: Call Back Authorization, [facility] Medications and DC Order Prescriptions: No Action albuterol sulfate [Ventolin HFA] 90 mcg/actuation Hfa Aerosol Inhaler 2 puff INHALATION QID RF: 0 diphenhydramine HCl [Banophen] 25 mg Capsule 25 mg PO HS PRN (Reason: Tremor(S)) RF: 0 risperidone 2 mg Tablet 2 mg PO AMHS RF: 0 acetaminophen 325 mg Tablet 325 mg PO Q4H PRN (Reason: Fever Or Pain) RF: 0 albuterol sulfate 2.5 mg /3 mL (0.083 %) Solution For Nebulization 2.5 mg INHALATION Q6H PRN (Reason: COUGH/WHEEZING/CONGESTION) RF: 0 ondansetron HCl [Zofran] 4 mg Tablet 4 mg PO Q8H PRN (Reason: Nausea And Vomiting) RF: 0 loperamide [Imodium A-D] 2 mg Tablet 2 mg PO Q6H PRN (Reason: Diarrhea) RF: 0 melatonin 3 mg Tablet 6 mg feeding tube HS RF: 0 quetiapine 100 mg Tablet 100 mg PO HS RF: 0 oxycodone-acetaminophen [Percocet] 2.5-325 mg Tablet 1 tab PO Q6H PRN (Reason: Pain) RF: 0 metoprolol tartrate 25 mg Tablet 25 mg PO BID RF: 0 budesonide-formoterol 160-4.5 mcg/actuation Hfa Aerosol Inhaler 2 puff INHALATION BID RF: 0 Prilosec 10 mg Susp,Delayed Release For Recon 40 mg feeding tube QAM RF: 0 Eternal Feeding 150 ml feeding tube .BID AT 0200 & 2200 RF: 0 Liquid Protein Suppliment 30 ml PO TID RF: 0 Supplimental Shakes 1 can PO HS RF: 0 Admission Data Admit Date/Time: 09/06/19 21:47 Attending Provider: Shanthi Pastrana I. Admit Provider: Marlo Hammonds Primary Care Provider: Bernardo Bynum Other Providers: Catrachito Washington ; Dean Roberts ; Omari Sung ; Tyrel López ; Marc Espinosa ; Binu Henderson
[2019-09-07 12:10] LABS: BUN Creatinine Ratio 28.5 (10-20); Calcium 5.6 mg/dl (8.5-10.1); Creatinine Clr Calc Pharmacy 28.5 ml/min; Est GFR (African American) 47.7; Est GFR (Non-African American) 41.1; Magnesium 2.2 mg/dl (1.8-2.4); Phosphorus 3.1 mg/dl (2.5-4.9); Potassium 3.4 mmol/L (3.5-5.1); Troponin I 0.089 ng/ml (0-0.045)
[2019-09-07] MEDS ORDERED: CALCIUM GLUCONATE 10% 2,000 MG in SODIUM CHLORIDE 0.9% 50 ML IV STA (12:14)
[2019-09-07] MEDS ORDERED: NON-FORMULARY MEDICATION (Melatonin 6 MG) feeding tube SCH (21:00)
[2019-09-07] MEDS ORDERED: QUETIAPINE FUMARATE 100 MG TABLET PO SCH (21:00)
[2019-09-14 13:06] LABS: Pleural Fluid, Cholesterol 37 mg/dL
== END 2019-09-07 12:15 | disposition short-term general hospital (02) | DRG 871 ==
LOC: ED 19:02 → SUATTDRO 21:47 → 1E 21:47